=== PATIENT | male | born 1980 | race Hispanic/Latino ===

== ENCOUNTER 2021-01-23 01:39 | Inpatient (IN) | payer OTHER ==
--- OUTSIDE RECORDS SUMMARY | 2021-01-23 01:46 | XMS REPORT | Continuity of Care Document ---
:1980 Author Organization [facility] t Address [address] [place] [address] Care Team Providers Name Role Phone Unavailable Unavailable Unavailable Payers Payer Name Policy Type Policy Number Effective Date Expiration Date S ource Problems This patient has no known problems. Allergies, Adverse Reactions, Alerts Allergy Allergy Status Severity Reaction(s) Onset Inactive Treating Comm ents Source Name Type Date Date Clinician prochlor DA Active PR 2020-0 [facility] per[facility] 3-29 [facility] haloperi DA Active U 2020-0 [facility] dol 01-21 [facility] metoclop DA Active U 2020-0 [facility] ramide 11-30 [facility] clonidin DA Active U 2020-0 [facility] e 05-20 [facility] metoclop DA Active U 2020-0 [facility] ramide 05-20 [facility] clonidin DA Active U 2018-0 [facility] e 01-16 [facility] metoclop DA Active U 2018-0 [facility] ramide 01-16 [facility] clonidin DA Active U 2018-0 [facility] e 11-25 [facility] metoclop DA Active U 2018-0 [facility] ramide 11-25 [facility] Medications This patient has no known medications. Procedures This patient has no known procedures. Results Test Description Test Time Test Comments Results Result [facility] rico Comments - CT ABD PELVIS 2020-08-13 W/CONT 19:35:00 [facility] : 1980 Sex: M Name: RADHA CARPENTER [place] [facility] : 1980 Age/S: 39 / M [address] Unit #: [id number] Loc: [place] [address] Phys: Tony Noriega MD Acct: [id number] Dis Date: Status: PRE ER PHONE #: Exam Date: 08/13/20201923 FAX #: Reason: ABD PAIN EXAMS: CPT CODE: [id number] CT ABD PELVIS W/CONT 42602 CT SCAN OF THE ABDOMEN AND PELVIS WITH CONTRAST Dictation Location: N13 CLINICAL HISTORY: Abdominal pain TECHNIQUE: Helical CT of the abdomen and pelvis was performed after the administration of 100 cc of Isovue 300 without complication. Coronal and sagittal reconstructions were obtained. This exam was performed according to our departmental dose optimization program, which includes automated exposure control, adjustment of the mA and/ or KV according to patient size and/or use of iterative reconstruction technique. DLP 602 mGy*cm Comparison study June 14, 2020 FINDINGS: The visualized lung bases are clear. No evidence of pleural effusion. Liver is normal in size without intrahepatic biliary dilatation or focal mass. The gallbladder is surgically absent. The pancreas, spleen, and adrenal glands are normal. There is no evidence of hydronephrosis, solid mass, pyelonephritis or obstructing kidney stone. Visualized ureters are unremarkable. There is no evidence of pancreatic mass, atrophy, calcification. There is no abdominal free fluid or adenopathy. There is no bowel wall thickening or dilatation. There is no evidence of appendicitis, diverticulitis, colitis or bowel obstruction. A gastric stimulator again noted in place. Normal appendix is seen on coronal image 70. In the pelvis, there is no free fluid or adenopathy present. The bladder is unremarkable without wall thickening, distention, calculi or mass. There is mild prostate enlargement. There is mild calcific atherosclerosis. No AAA. Mild degenerative changes are seen in the spine. IMPRESSION: No acute abnormality is demonstrated. at 1935 Reported and signed by: BLAS JARA M.D. PAGE 1 Signed Report (CONTINUED) Name: RADHA CARPENTER FSED : 1980 Age/S: 39 / M [address] Unit #: [id number] Loc: [place] [address] Phys: Tony Noriega MD Acct: [id number] Dis Date: Status: PRE ER PHONE #: Exam Date: 08/13/20201923 FAX #: Reason: ABD PAIN EXAMS: CPT CODE: [id number] CT ABD PELVIS W/CONT 74400 <Continued> CC: Galindo Chris MD Technologist:Jamil Cox CT (R) CTDI: 10.45 DLP: 602.65 Trnscb Date/Time: 08/13/2020 (1934) [email or web address] Orig Print D/T: S: 08/13/2020 (1937) PAGE 2 Signed Report UA RFLX MICROSCOPIC CULTURE 2020-08-13 19:33:00 Test Item Value Reference Range Interpretation Comme nts UA COLOR (test code = COLU) YELLOW YELLOW UA APPEARANCE (test code = APPU) CLEAR CLEAR UA GLUCOSE DIPSTICK (test code = DGLUU) >=1000 mg/dl NORMAL UA BILIRUBIN DIPSTICK (test code = BILU) NEGATIVE mg/dl NEGATIVE UA KETONE DIPSTICK (test code = KETU) TRACE mg/dl NEGATIVE UA SPECIFIC GRAVITY (test code = SGU) 1.020 1.001-1.035 N UA BLOOD DIPSTICK (test code = JACE) SMALL /UL NEGATIVE UA PH DIPSTICK (test code = LINDA) 5.5 4.6-8.0 UA PROTEIN DIPSTICK (test code = PROU) 30 mg/dl NEGATIVE A UA UROBILINIOGEN DIPSTICK (test code = URO) 0.2 mg/dl NORMAL UA NITRITE DIPSTICK (test code = JOHN) NEGATIVE NEGATIVE UA LEUKOCYTE ESTERASE DIPSTICK (test code = LEUU) TRACE /UL NEGA TIVE UA COMMENT (test code = COMU) CLN CATCH UA WBC (test code = WBCUR) 3-5 #/hpf 0-5 UA RBC (test code = RBCU) 3-5 #/hpf 0-5 UA EPITHELIAL CELLS (test code = EPIU) FEW /hpf NEG,FEW UA BACTERIA (test code = BACU) FEW /hpf NEGATIVE A Indication for culture: Suprapubic PainURINE SOURCE: CLEAN CATCH URINEBASIC METABOLIC [id number] 19:30:00 Test Item Value Reference Range Interpretation Comments SODIUM (test code = 142 mmol/L 136-145 N NA) POTASSIUM (test code 3.7 mmol/L 3.5-5.1 N = K) CHLORIDE (test code = 104 mmol/L 98-107 N CL) CARBON DIOXIDE (test 28 mmol/L 21-32 N code = CO2) GLUCOSE (test code = 92 mg/dL 70-100 N GLU) BLOOD UREA NITROGEN 21 mg/dL 7-18 H (test code = BUN) GLOMERULAR FILTRATION > 60.00 See_Comment Report ing units: RATE (test code = mL/min/1.7 3m\\S\\2 GFR) (Modified MDRD formula)REFEREN CE RANGE: > or = 6 0 ml/min/1.73M2IF PATIENT IS -EVA N, MULTIPLY REPORT ED RESULT BY1.21. [Automated mess age] The system [employer] generated this result transmitted ref erence range: >=60. Th e reference range was not used to int erpret this result as normal/abnormal . CREATININE (test code 0.91 mg/dl 0.70-1.30 N = CREAT) CALCIUM (test code = 9.6 mg/dL 8.5-10.1 N CA) LIVER [id number] 19:30:00 Test Item Value Reference Range Interpretation Comments TOTAL PROTEIN (test code = PROT) 8.5 g/dl 6.4-8.2 H ALBUMIN (test code = ALB) 4.2 g/dl 3.4-5.0 N BILIRUBIN TOTAL (test code = BILT) 0.4 mg/dL 0.2-1.0 N BILIRUBIN DIRECT (test code = 0.11 mg/dl 0.0-0.2 N BILD) SGOT/AST (test code = AST) 18 U/L 15-37 N SGPT/ALT (test code = ALT) 45 U/L 12-78 N ALKALINE PHOSPHATASE TOTAL (test 78 U/L 45-117 N code = ALKP) [id number] 19:30:00 Test Item Value Reference Range Interpretation Comments LIPASE (test code = LIP) 59 U/L 73-393 L [id number] 19:30:00 Test Item Value Reference Range Interpretation Comments TROPONIN-I (test 4 pg/ml See_Comment N HIG H SENSITIVITY code = TROPI) TROPONIN MEASUREMENT/RAN GES -------Assay : Units : Keyonna l : Risk Stratification : High : : (Dete ctable : Limit(Suggestiv e of : AboveTNIH : : Limit) : ilda al testing) : 99th : : : : % ile ------FEMALES: pg/ml : <= 3.0 : 3 .1 - 54 : >54 ------MALES : pg/ml : <= 3.0 : 3 .1 - 78 : >78 ------- [Automa ghazala message] The system [employer] generated this result tra nsmitted reference range : <=3.0. The reference range was not used to interpret th is result as normal/abnormal . DRUGS OF ABUSE [id number] 19:08:00 Test Item Value Reference Range Interpretation Comments UR COCAINE (test code NEGATIVE ng/ml NEGATIVE = COCAU) UR CANNABINOIDS (test NEGATIVE ng/ml NEGATIVE code = CANU) UR AMPHETAMINE (test NEGATIVE ng/dl NEGATIVE code = AMPHU) UR BARBITURATE (test NEGATIVE ng/ml NEGATIVE code = BARBU) UR BENZODIAZEPINE NEGATIVE ng/ml NEGATIVE (test code = BENZU) UR OPIATES QUAL (test NEGATIVE ng/ml NEGATIVE code = OPIAQLU) UR PHENCYCLIDINE NEGATIVE ng/ml NEGATIVE THE URINE SPECIMEN (PCP) (test code = [facility] D [facility]) LISTED CUTOFFS DRUG CLASS INITIAL TEST LEVEL AMPHETAMI TED 1000 NG/MLBARBITURAT ES 200 NG/MLBENZODIAZE PIN ES 200 NG/MLCOCAINE METABOLITE 300 NG/MLMARIJUANA METABOLITE 5 0 NG/MLOPIATES 300 NG/MLPHENCYCLID INE 25 NG /ML UA RFLX MICROSCOPIC [id number] 19:05:00 Test Item Value Reference Range Interpretation Comments UA COLOR (test code = COLU) YELLOW YELLOW UA APPEARANCE (test code = CLEAR CLEAR APPU) UA GLUCOSE DIPSTICK (test code >=1000 mg/dl NORMAL = DGLUU) UA BILIRUBIN DIPSTICK (test NEGATIVE mg/dl NEGATIVE code = BILU) UA KETONE DIPSTICK (test code TRACE mg/dl NEGATIVE = KETU) UA SPECIFIC GRAVITY (test code 1.020 1.001-1.035 N = SGU) UA BLOOD DIPSTICK (test code = SMALL /UL NEGATIVE JACE) UA PH DIPSTICK (test code = 5.5 4.6-8.0 LINDA) UA PROTEIN DIPSTICK (test code 30 mg/dl NEGATIVE A = PROU) UA UROBILINIOGEN DIPSTICK 0.2 mg/dl NORMAL (test code = URO) UA NITRITE DIPSTICK (test code NEGATIVE NEGATIVE = JOHN) UA LEUKOCYTE ESTERASE DIPSTICK TRACE /UL NEGATIVE (test code = LEUU) UA COMMENT (test code = COMU) CLN CATCH UA WBC (test code = WBCUR) #/hpf 0-5 Indication for culture: Suprapubic PainURINE SOURCE: CLEAN CATCH URINEBASIC METABOLIC [id number] 18:20:00 Test Item Value Reference Range Interpretation Comments SODIUM (test code = 142 mmol/L 136-145 N NA) POTASSIUM (test code 3.7 mmol/L 3.5-5.1 N = K) CHLORIDE (test code = 104 mmol/L 98-107 N CL) CARBON DIOXIDE (test 28 mmol/L 21-32 N code = CO2) GLUCOSE (test code = 92 mg/dL 70-100 N GLU) BLOOD UREA NITROGEN 21 mg/dL 7-18 H (test code = BUN) GLOMERULAR FILTRATION > 60.00 See_Comment Report ing units: RATE (test code = mL/min/1.7 3m\\S\\2 GFR) (Modified MDRD formula)REFEREN CE RANGE: > or = 6 0 ml/min/1.73M2IF PATIENT IS -EVA N, MULTIPLY REPORT ED RESULT BY1.21. [Automated mess age] The system [employer] generated this result transmitted ref erence range: >=60. Th e reference range was not used to int erpret this result as normal/abnormal . CREATININE (test code 0.91 mg/dl 0.70-1.30 N = CREAT) CALCIUM (test code = 9.6 mg/dL 8.5-10.1 N CA) LIVER [id number] 18:20:00 Test Item Value Reference Range Interpretation Comments TOTAL PROTEIN (test code = PROT) 8.5 g/dl 6.4-8.2 H ALBUMIN (test code = ALB) 4.2 g/dl 3.4-5.0 N BILIRUBIN TOTAL (test code = BILT) 0.4 mg/dL 0.2-1.0 N BILIRUBIN DIRECT (test code = 0.11 mg/dl 0.0-0.2 N BILD) SGOT/AST (test code = AST) 18 U/L 15-37 N SGPT/ALT (test code = ALT) 45 U/L 12-78 N ALKALINE PHOSPHATASE TOTAL (test 78 U/L 45-117 N code = ALKP) [id number] 18:20:00 Test Item Value Reference Range Interpretation Comments LIPASE (test code = LIP) 59 U/L 73-393 L CBC W/AUTO [id number] 18:06:00 Test Item Value Reference Range Interpretation Comments WHITE BLOOD CELL (test code = 9.7 X10(3) 4.5-11.0 N WBC) RED BLOOD CELL (test code = 4.65 X10(6) 4.3-5.9 N RBC) HEMOGLOBIN (test code = HGB) 13.8 g/dL 13.5-18.0 N HEMATOCRIT (test code = HCT) 42.3 % 42.0-52.0 N MEAN CELL VOLUME (test code = 91.0 fL 78-100 N MCV) MEAN CELL HGB (test code = MCH) 29.7 pg 26.0-34.0 N MEAN CELL HGB CONCETRATION 32.6 g/dl 30.0-37.0 N (test code = MCHC) RED CELL DISTRIBUTION WIDTH 11.8 % 11.5-14.5 N (test code = RDW) PLATELET COUNT (test code = 335 X10(3) 150-350 N PLT) MEAN PLATELET VOLUME (test code 9.3 fl 8.7-11.4 N = MPV) NEUTROPHIL % (test code = NT%) 61.5 % 36.0-66.0 N IMMATURE GRANULOCYTE % (test 0.2 % 0.0-2.0 N code = IG%) LYMPHOCYTE % (test code = LY%) 30.8 % 16-50 N MONOCYTE % (test code = MO%) 7.1 % 0.0-13.0 N EOSINOPHIL % (test code = EO%) 0.2 % 0.0-4.5 N BASOPHIL % (test code = BA%) 0.2 % 0.0-1.5 N NEUTROPHIL # (test code = NT#) 6.0 X10(3) 1.7-7.7 N IMMATURE GRANULOCYTE # (test 0.02 X10(3)uL 0.00-0.03 N code = IG#) LYMPHOCYTE # (test code = LY#) 3.0 X10(3) 1.0-4.8 N MONOCYTE # (test code = MO#) 0.7 X10(3) 0.0-0.89 N EOSINOPHIL # (test code = EO#) 0.0 X10(3) 0.0-0.6 N BASOPHIL # (test code = BA#) 0.0 X10(3) 0.0-0.2 N RBC MORPHOLOGY REQUIRED (test NO NORMAL code = RBCM) LACTIC [id number] 18:05:00 Test Item Value Reference Range Interpretation Comments LACTIC ACID (test code = LACT) 2.0 mmol/l 0.4-2.0 N [id number] 17:57:00 Test Item Value Reference Range Interpretation Comments GLUBED (test code = GLUBED) 89 mg/dL 70-105 N [id number] 12:05:00 Test Item Value Reference Range Interpretation Comments GLUBED (test code = GLUBED) 314 mg/dL 70-105 H [id number] 12:04:00 Test Item Value Reference Range Interpretation Comments GLUBED (test code = GLUBED) 371 mg/dL 70-105 H LACTIC [id number] 11:41:00 Test Item Value Reference Range Interpretation Comments LACTIC ACID (test code = LACT) 1.5 mmol/l 0.4-2.0 N - CT LOWER EXTRM W/O C [id number] 11:30:00 [facility] : 1980 Sex: M Name: RADHA CARPENTER FSED : 1980Age/S: 39 / M [address] Unit #: [id number] Loc: [place] [address] Phys: Tony Noriega MD Acct: [id number] Dis Date: Status: REG ER PHONE#: Exam Date: 06/14/2020 1017 FAX #: Reason:R FOOT SWELLING EXAMS: CPT CODE: [id number] [place] [address] - CT LOWER EXTRM W/O C RT REASON FOR EXAM: R FOOT SWELLING TECHNIQUE: Volumetric CT data of the right foot was obtained without the administration of intravenous contrast. Images were then viewed in the axial, coronal and sagittal planes. All CT scan to performed using radiation dose reduction technique. Technical factors are evaluated to insure appropriate moderation of exposure. Automated dose management technologies applied to adjust the radiation dose to minimize exposure well achieving a diagnostic quality image. COMPARISON: None available. FINDINGS: 1 cm ulcer plantar aspect of the forefoot undermining the 3rd and 4th metatarsal heads. Extensive soft tissue swelling forefoot with osseous erosion of the 5th digit proximal and distal phalanx centered at the IP joint. No additional sites of osseous erosion identified. Recommend Atherosclerotic plaque. IMPRESSION: 1 cm ulceration plantar aspect of the forefoot undermining the3rd and 4th metatarsal head with findings of cellulitis and osteomyelitis of the 5thdigit surrounding the DIP joint. No radiopaque foreign body. No soft tissue gas. Advanced atherosclerotic plaque. Location: V20 at 1130 Reported and signed by: JIMMIE FERNANDEZ M.D. PAGE 1 Signed Report (CONTINUED) Name: RADHA CARPENTER FSED : 1980 Age/S: 39 / M [address] Unit #: [id number] Loc: [place] [address] Phys: Tony Noriega MD Acct: [id number] Dis Date: Status: REG ER PHONE #: Exam Date: 06/14/2020 1017 FAX #: Reason: R FOOT SWELLING EXAMS: CPT CODE: [id number] CT LOWER EXTRM W/O C RT <Continued> CC: Tony Noriega MD; Galindo Chris MD Technologist:Fede Caballero, (R) CT CTDI: 10.53 DLP: 350.96 Trnscb Date/Time: 06/14/2020 (1130) [email or web address] Orig Print D/T: S: 06/14/2020 (1133) PAGE 2 Signed ReportDRUGS OF ABUSE [id number] 10:53:00 Test Item Value Reference Range Interpretation Comments UR COCAINE (test code NEGATIVE ng/ml NEGATIVE = COCAU) UR CANNABINOIDS (test NEGATIVE ng/ml NEGATIVE code = CANU) UR AMPHETAMINE (test NEGATIVE ng/dl NEGATIVE code = AMPHU) UR BARBITURATE (test POSITIVE ng/ml NEGATIVE A VALUE EXCEEDS code = BARBU) CRITICAL LEVEL . CRITICAL VALUE CALLEDTO AND CRITICAL VALUE READ BACK BY DEIRDRE CORRALES 10 52 06/14/20. Kolton Rodriguez ia POSITIVE URINE DRUG SCREEN MOO T RESULTS ARE UNCONFIRMED.REF ERR ED CONFIRMATORY TESTING AVAILAB LE UPON PHYSICIANREQUES T. UR BENZODIAZEPINE NEGATIVE ng/ml NEGATIVE (test code = BENZU) UR OPIATES QUAL (test POSITIVE ng/ml NEGATIVE A VALU E EXCEEDS code = OPIAQLU) CRITICAL LEV EL. CRITICAL VALUE CALLEDTO AND CRITICAL VALUE READ BACK BY DEIRDRE CORRALES 10 52 06/14/20. Kolton Rodriguez ia POSITIVE URINE DRUG SCREEN MOO T RESULTS ARE UNCONFIRMED.REF ERR ED CONFIRMATORY TESTING AVAILAB LE UPON PHYSICIANREQUES T. UR PHENCYCLIDINE NEGATIVE ng/ml NEGATIVE THE URINE SPECIMEN (PCP) (test code = WAS TESTE D AT THE [facility]) LISTED CUTOFFS DRUG CLASS INITIAL TEST LEVEL AMPHETAMI TED 1000 NG/MLBARBITURAT ES 200 NG/MLBENZODIAZE PIN ES 200 NG/MLCOCAINE METABOLITE 300 NG/MLMARIJUANA METABOLITE 5 0 NG/MLOPIATES 300 NG/MLPHENCYCLID INE 25 NG /ML - CT ABD PELVIS [id number] 09:45:00 [facility] 1980 Sex: M Name: RADHA CARPENTER FSED : 1980Age/S: 39 / M [address] Unit #: [id number] Loc: [place] [address] Phys: Tony Noriega MD Acct: [id number] Dis Date: Status: PRE ER PHONE#: Exam Date: 06/14/202018 FAX #: Reason:ABD PAIN EXAMS: CPT CODE: [id number] CT ABD PELVIS W/CONT 07315 CT abdomen and pelvis with contrast 06/14/2020 CLINICAL INDICATION: Abdominal pain COMPARISON: None available LOCATION: W1 TECHNIQUE: Helical CT axial imaging of the abdomen and pelvis was performed following the administration of intravenous contrast. Coronal and sagittal reformatted images were obtained. One or more of the followi ng dose reduction techniques were used: Automated exposure control, adjustment of the mA and/or kV according to patient size, and/or utilization of iterative reconstruction technique. FINDINGS: Lower thorax: Unremarkable. Hepatobiliary: Probable hepatosteatosis. Gallbladder: Surgically absent. Spleen: Unremarkable. Pancreas: Unremarkable. Kidneys: Unremarkable. Adrenals: Unremarkable. Lymph nodes: Unremarkable. Vessels: Mild arteriosclerosis. Peritoneum/retroperitoneum: Unremarkable. Pelvic organs/bladder: Unremarkable. Bowel: No focal wall thickening or evidence for obstruction. Nondilated appendix. Indwelling gastric stimulator. Bones/soft tissues: Chronic appearing degenerative changes in the skeleton. IMPRESSION: No acute-appearing imaging abnormality. at 0945 Reported and signed by: AUTUMN TRAN M.D. PAGE 1 Signed Report (CONTINUED) Name: RADHA CARPENTER FSED : 1980 Age/S: 39 / M [address] Unit #: [id number] Loc: [place] [address] [id number] Dis Date: Status: PRE ER PHONE #: Exam Date: 06/14/2020 0918 FAX #: Reason: ABD PAIN EXAMS: CPT CODE: [id number] CT ABD PELVIS W/CONT 08144 <Continued> CC: Tony Noriega MD; Galindo Chris MD Technologist:Fede Caballero, RT (R) CT CTDI: 10.33 DLP: 549.38 Trnscb Date/Time: 06/14/2020 (944) [email or web address] Orig Print D/T: S: 06/14/2020 (3686) PAGE 2 Signed Report UA RFLX MICROSCOPIC [id number] 09:14:00 Test Item Value Reference Range Interpretation Comments UA COLOR (test code = COLU) YELLOW YELLOW UA APPEARANCE (test code = CLEAR CLEAR APPU) UA GLUCOSE DIPSTICK (test code >=1000 mg/dl NORMAL = DGLUU) UA BILIRUBIN DIPSTICK (test NEGATIVE mg/dl NEGATIVE code = BILU) UA KETONE DIPSTICK (test code NEGATIVE mg/dl NEGATIVE = KETU) UA SPECIFIC GRAVITY (test code 1.020 1.001-1.035 N = SGU) UA BLOOD DIPSTICK (test code = TRACE /UL NEGATIVE A JACE) UA PH DIPSTICK (test code = 5.5 4.6-8.0 LINDA) UA PROTEIN DIPSTICK (test code NEGATIVE mg/dl NEGATIVE = PROU) UA UROBILINIOGEN DIPSTICK 0.2 mg/dl NORMAL (test code = URO) UA NITRITE DIPSTICK (test code NEGATIVE NEGATIVE = JOHN) UA LEUKOCYTE ESTERASE DIPSTICK NEGATIVE /UL NEGATIVE (test code = LEUU) UA COMMENT (test code = COMU) CLN CATCH UA WBC (test code = WBCUR) 0-2 #/hpf 0-5 UA RBC (test code = RBCU) 0-2 #/hpf 0-5 UA EPITHELIAL CELLS (test code FEW /hpf NEG,FEW = EPIU) UA YEAST (BUDDING) (test code FEW /hpf NEGATIVE A = YEASTUBD) Indication for culture: Dysuria/FrequencyURINE SOURCE: CLEAN CATCH URINEUA RFLX MICROSCOPIC [id number] 09:12:00 Test Item Value Reference Range Interpretation Comments UA COLOR (test code = COLU) YELLOW YELLOW UA APPEARANCE (test code = CLEAR CLEAR APPU) UA GLUCOSE DIPSTICK (test code >=1000 mg/dl NORMAL = DGLUU) UA BILIRUBIN DIPSTICK (test NEGATIVE mg/dl NEGATIVE code = BILU) UA KETONE DIPSTICK (test code NEGATIVE mg/dl NEGATIVE = KETU) UA SPECIFIC GRAVITY (test code 1.020 1.001-1.035 N = SGU) UA BLOOD DIPSTICK (test code = TRACE /UL NEGATIVE A JACE) UA PH DIPSTICK (test code = 5.5 4.6-8.0 LINDA) UA PROTEIN DIPSTICK (test code NEGATIVE mg/dl NEGATIVE = PROU) UA UROBILINIOGEN DIPSTICK 0.2 mg/dl NORMAL (test code = URO) UA NITRITE DIPSTICK (test code NEGATIVE NEGATIVE = JOHN) UA LEUKOCYTE ESTERASE DIPSTICK NEGATIVE /UL NEGATIVE (test code = LEUU) UA COMMENT (test code = COMU) CLN CATCH UA WBC (test code = WBCUR) #/hpf 0-5 Indication for culture: Dysuria/FrequencyURINE SOURCE: CLEAN CATCH URINE BASIC METABOLIC [id number] 08:48:00 Test Item Value Reference Range Interpretation Comments SODIUM (test code = 134 mmol/L 136-145 L NA) POTASSIUM (test code = 4.6 mmol/L 3.5-5.1 N K) CHLORIDE (test code = 100 mmol/L 98-107 N CL) CARBON DIOXIDE (test 27 mmol/L 21-32 N code = CO2) GLUCOSE (test code = 424 mg/dL 70-100 H GLU) BLOOD UREA NITROGEN 28 mg/dL 7-18 H (test code = BUN) GLOMERULAR FILTRATION > 60.00 >=60 Report ing units: RATE (test code = GFR) mL/mi n/1.73m\\S\\2 (Modified MDRD formula)REFEREN CE RANGE: > or = 6 0 ml/min/1.73M2IF PATIENT IS -EVA N, MULTIPLY REPORT ED RESULT BY1.21. CREATININE (test code 1.20 mg/dl 0.70-1.30 N = CREAT) CALCIUM (test code = 10.1 mg/dL 8.5-10.1 N CA) LIVER [id number] 08:48:00 Test Item Value Reference Range Interpretation Comments TOTAL PROTEIN (test code = PROT) 8.8 g/dl 6.4-8.2 H ALBUMIN (test code = ALB) 4.0 g/dl 3.4-5.0 N BILIRUBIN TOTAL (test code = BILT) 0.6 mg/dL 0.2-1.0 N BILIRUBIN DIRECT (test code = 0.13 mg/dl 0.0-0.2 N BILD) SGOT/AST (test code = AST) 17 U/L 15-37 N SGPT/ALT (test code = ALT) 33 U/L 12-78 N ALKALINE PHOSPHATASE TOTAL (test 84 U/L 45-117 N code = ALKP) [id number] 08:48:00 Test Item Value Reference Range Interpretation Comments LIPASE (test code = LIP) 78 U/L 73-393 N [id number] 08:48:00 Test Item Value Reference Range Interpretation Comments TROPONIN-I (test <0.017 ng/ml 0.00-0.045 N GUIDELINES: 0.08 - 0.09 code = TROPI) Indeterminate0 .10 Risk Stratifica tion Limit: Suggest sequential te sting0.60 - 1.50 AMI cut off: Myocardial Inju ry by WHO criteria BASIC METABOLIC [id number] 08:46:00 Test Item Value Reference Range Interpretation Comments SODIUM (test code = 134 mmol/L 136-145 L NA) POTASSIUM (test code = 4.6 mmol/L 3.5-5.1 N K) CHLORIDE (test code = 100 mmol/L 98-107 N CL) CARBON DIOXIDE (test 27 mmol/L 21-32 N code = CO2) GLUCOSE (test code = 424 mg/dL 70-100 H GLU) BLOOD UREA NITROGEN 28 mg/dL 7-18 H (test code = BUN) GLOMERULAR FILTRATION > 60.00 >=60 Report ing units: RATE (test code = GFR) mL/mi n/1.73m\\S\\2 (Modified MDRD formula)REFEREN CE RANGE: > or = 6 0 ml/min/1.73M2IF PATIENT IS -EVA N, MULTIPLY REPORT ED RESULT BY1.21. CREATININE (test code 1.20 mg/dl 0.70-1.30 N = CREAT) CALCIUM (test code = 10.1 mg/dL 8.5-10.1 N CA) LIVER [id number] 08:46:00 Test Item Value Reference Range Interpretation Comments TOTAL PROTEIN (test code = PROT) 8.8 g/dl 6.4-8.2 H ALBUMIN (test code = ALB) 4.0 g/dl 3.4-5.0 N BILIRUBIN TOTAL (test code = BILT) 0.6 mg/dL 0.2-1.0 N BILIRUBIN DIRECT (test code = BILD) mg/dl 0.0-0.2 SGOT/AST (test code = AST) 17 U/L 15-37 N SGPT/ALT (test code = ALT) 33 U/L 12-78 N ALKALINE PHOSPHATASE TOTAL (test 84 U/L 45-117 N code = ALKP) [id number] 08:46:00 Test Item Value Reference Range Interpretation Comments LIPASE (test code = LIP) U/L 73-393 [id number] 08:46:00 Test Item Value Reference Range Interpretation Comments TROPONIN-I (test code = TROPI) ng/ml 0.00-0.045 PROTHROMBIN [id number] 08:45:00 Test Item Value Reference Interpretation Comments Range PROTHROMBIN TIME 9.6 SECONDS 8.7-11.9 N THERAPEUTIC LEVEL: 1.5 TO PATIENT (test code 1.9 TIMES NORMAL RANGE = PTP) INTERNATIONAL 0.9 Recommended Th erapeutic NORMAL RATIO (test PT Ratios For Oral code = INR) AnticoagulantTh erapy. CONDITION INT'L N ORMALIZED PT RATIO------- --- Prophylaxis of venous thrombosis 2.0 - 3.0in high [facility] medical or surgicalpati ents, treatment of venousthrombosi s, prevention of e mbolism. Prevention of r ecurrent embolism, 2.5 - 3.5or treatment of patients with mechanicalprost hetic heart valves. THROMBOPLASTIN TIME [id number] 08:45:00 Test Item Value Reference Range Interpretation Comments THROMBOPLASTIN TIME PARTIAL 25.4 seconds 22.8-34.4 N (test code = PTT) CBC W/AUTO [id number] 08:30:00 Test Item Value Reference Range Interpretation Comments WHITE BLOOD CELL (test code = 9.0 X10(3) 4.5-11.0 N WBC) RED BLOOD CELL (test code = 4.47 X10(6) 4.3-5.9 N RBC) HEMOGLOBIN (test code = HGB) 13.3 g/dL 13.5-18.0 L HEMATOCRIT (test code = HCT) 41.1 % 42.0-52.0 L MEAN CELL VOLUME (test code = 91.9 fL 78-100 N MCV) MEAN CELL HGB (test code = MCH) 29.8 pg 26.0-34.0 N MEAN CELL HGB CONCETRATION 32.4 g/dl 30.0-37.0 N (test code = MCHC) RED CELL DISTRIBUTION WIDTH 11.9 % 11.5-14.5 N (test code = RDW) PLATELET COUNT (test code = 437 X10(3) 150-350 H PLT) MEAN PLATELET VOLUME (test code 10.1 fl 8.7-11.4 N = MPV) NEUTROPHIL % (test code = NT%) 68.5 % 36.0-66.0 H IMMATURE GRANULOCYTE % (test 0.3 % 0.0-2.0 N code = IG%) LYMPHOCYTE % (test code = LY%) 24.3 % 16-50 N MONOCYTE % (test code = MO%) 6.6 % 0.0-13.0 N EOSINOPHIL % (test code = EO%) 0.1 % 0.0-4.5 N BASOPHIL % (test code = BA%) 0.2 % 0.0-1.5 N NEUTROPHIL # (test code = NT#) 6.2 X10(3) 1.7-7.7 N IMMATURE GRANULOCYTE # (test 0.03 X10(3)uL 0.00-0.03 N code = IG#) LYMPHOCYTE # (test code = LY#) 2.2 X10(3) 1.0-4.8 N MONOCYTE # (test code = MO#) 0.6 X10(3) 0.0-0.89 N EOSINOPHIL # (test code = EO#) 0.0 X10(3) 0.0-0.6 N BASOPHIL # (test code = BA#) 0.0 X10(3) 0.0-0.2 N RBC MORPHOLOGY REQUIRED (test NO NORMAL code = RBCM) LACTIC [id number] 08:29:00 Test Item Value Reference Range Interpretation Comments LACTIC ACID (test 2.5 mmol/l 0.4-2.0 H RESULTS C ALLED TO code = LACT) TONY Slade MD AT 0829 06/14/20. Berny Landaverde [id number] 07:55:00 Test Item Value Reference Range Interpretation Comments GLUBED (test code = GLUBED) 367 mg/dL 70-105 H URINALYSIS W REFLEX [id number] 11:06:00 Test Item Value Reference Range Interpretation Comments UA COLOR (test code = COLU) YELLOW YELLOW UA APPEARANCE (test code = CLEAR CLEAR APPU) UA GLUCOSE DIPSTICK (test code >1000 mg/dl NORMAL = DGLUU) UA BILIRUBIN DIPSTICK (test NEGATIVE mg/dl NEGATIVE code = BILU) UA KETONE DIPSTICK (test code NEGATIVE mg/dl NEGATIVE = KETU) UA SPECIFIC GRAVITY (test code 1.023 1.001-1.035 N = SGU) UA BLOOD DIPSTICK (test code = TRACE /UL NEGATIVE JACE) UA PH DIPSTICK (test code = 5.5 4.6-8.0 LINDA) UA PROTEIN DIPSTICK (test code 20 mg/dl NEGATIVE = PROU) UA UROBILINIOGEN DIPSTICK NORMAL mg/dl NORMAL (test code = URO) UA NITRITE DIPSTICK (test code NEGATIVE NEGATIVE = JOHN) UA LEUKOCYTE ESTERASE DIPSTICK NEGATIVE /UL NEGATIVE (test code = LEUU) UA COMMENT (test code = COMU) CLN CATCH UA WBC (test code = WBCU) 3-5 #/hpf 0-5 UA RBC (test code = RBCU) 0-2 #/hpf 0-5 UA EPITHELIAL CELLS (test code FEW /hpf NEG,FEW = EPIU) UA CALCIUM OXALATE CRYSTALS FEW /hpf NEG,FEW (test code = CAOXU) UA HYALINE CAST (test code = >15 #/lpf 0-2 A HYALU) UA MUCUS (test code = MUCU) 1+ /hpf NEG,FEW A UA AMORPHOUS SEDIMENT (test FEW /hpf NEG,FEW code = AMORU) UA SPERM (test code = SPERMU) FEW /hpf NEGATIVE A BASIC METABOLIC [id number] 11:02:00 Test Item Value Reference Range Interpretation Comments SODIUM (test code = 137 mmol/L 136-145 N NA) POTASSIUM (test code = 4.5 mmol/L 3.5-5.1 N K) CHLORIDE (test code = 103 mmol/L 98-107 N CL) CARBON DIOXIDE (test 27 mmol/L 21-32 N code = CO2) GLUCOSE (test code = 228 mg/dL 70-100 H GLU) BLOOD UREA NITROGEN 35 mg/dL 7-18 H (test code = BUN) GLOMERULAR FILTRATION > 60.00 >=60 Report ing units: RATE (test code = GFR) mL/mi n/1.73m\\S\\2 (Modified MDRD formula)REFEREN CE RANGE: > or = 6 0 ml/min/1.73M2IF PATIENT IS -EVA N, MULTIPLY REPORT ED RESULT BY1.21. CREATININE (test code 1.30 mg/dL 0.67-1.17 H = CREAT) CALCIUM (test code = 10.7 mg/dL 8.5-10.1 H CA) LIVER [id number] 11:02:00 Test Item Value Reference Range Interpretation Comments TOTAL PROTEIN (test code = PROT) 8.7 g/dl 6.4-8.2 H ALBUMIN (test code = ALB) 4.2 g/dl 3.4-5.0 N BILIRUBIN TOTAL (test code = BILT) 0.3 mg/dl 0.2-1.0 N BILIRUBIN DIRECT (test code = 0.11 mg/dl 0.0-0.4 N BILD) SGOT/AST (test code = AST) 31 U/L 15-37 N SGPT/ALT (test code = ALT) 43 U/L 12-78 N ALKALINE PHOSPHATASE TOTAL (test 82 U/L 50-136 N code = ALKP) [id number] 11:02:00 Test Item Value Reference Range Interpretation Comments LIPASE (test code = LIP) 56 U/L 73-393 L [id number] 11:02:00 Test Item Value Reference Range Interpretation Comments TROPONIN-I (test <0.015 ng/ml 0.00-0.045 N GUIDELINES: 0.08 - 0.09 code = TROPI) Indeterminate0 .10 Risk Stratifica tion Limit: Suggest sequential te sting0.60 - 1.50 AMI cut off: Myocardial Inju ry by WHO criteria BASIC METABOLIC [id number] 11:01:00 Test Item Value Reference Range Interpretation Comments SODIUM (test code = 137 mmol/L 136-145 N NA) POTASSIUM (test code = 4.5 mmol/L 3.5-5.1 N K) CHLORIDE (test code = 103 mmol/L 98-107 N CL) CARBON DIOXIDE (test 27 mmol/L 21-32 N code = CO2) GLUCOSE (test code = 228 mg/dL 70-100 H GLU) BLOOD UREA NITROGEN 35 mg/dL 7-18 H (test code = BUN) GLOMERULAR FILTRATION > 60.00 >=60 Report ing units: RATE (test code = GFR) mL/mi n/1.73m\\S\\2 (Modified MDRD formula)REFEREN CE RANGE: > or = 6 0 ml/min/1.73M2IF PATIENT IS -EVA N, MULTIPLY REPORT ED RESULT BY1.21. CREATININE (test code 1.30 mg/dL 0.67-1.17 H = CREAT) CALCIUM (test code = 10.7 mg/dL 8.5-10.1 H CA) LIVER [id number] 11:01:00 Test Item Value Reference Range Interpretation Comments TOTAL PROTEIN (test code = PROT) 8.7 g/dl 6.4-8.2 H ALBUMIN (test code = ALB) 4.2 g/dl 3.4-5.0 N BILIRUBIN TOTAL (test code = BILT) 0.3 mg/dl 0.2-1.0 N BILIRUBIN DIRECT (test code = 0.11 mg/dl 0.0-0.4 N BILD) SGOT/AST (test code = AST) 31 U/L 15-37 N SGPT/ALT (test code = ALT) 43 U/L 12-78 N ALKALINE PHOSPHATASE TOTAL (test U/L 50-136 code = ALKP) [id number] 11:01:00 Test Item Value Reference Range Interpretation Comments LIPASE (test code = LIP) 56 U/L 73-393 L [id number] 11:01:00 Test Item Value Reference Range Interpretation Comments TROPONIN-I (test code = TROPI) ng/ml 0.00-0.045 BASIC METABOLIC [id number] 11:00:00 Test Item Value Reference Range Interpretation Comments SODIUM (test code = 137 mmol/L 136-145 N NA) POTASSIUM (test code = 4.5 mmol/L 3.5-5.1 N K) CHLORIDE (test code = 103 mmol/L 98-107 N CL) CARBON DIOXIDE (test 27 mmol/L 21-32 N code = CO2) GLUCOSE (test code = 228 mg/dL 70-100 H GLU) BLOOD UREA NITROGEN 35 mg/dL 7-18 H (test code = BUN) GLOMERULAR FILTRATION > 60.00 >=60 Report ing units: RATE (test code = GFR) mL/mi n/1.73m\\S\\2 (Modified MDRD formula)REFEREN CE RANGE: > or = 6 0 ml/min/1.73M2IF PATIENT IS -EVA N, MULTIPLY REPORT ED RESULT BY1.21. CREATININE (test code 1.30 mg/dL 0.67-1.17 H = CREAT) CALCIUM (test code = 10.7 mg/dL 8.5-10.1 H CA) LIVER [id number] 11:00:00 Test Item Value Reference Range Interpretation Comments TOTAL PROTEIN (test code = PROT) g/dl 6.4-8.2 ALBUMIN (test code = ALB) 4.2 g/dl 3.4-5.0 N BILIRUBIN TOTAL (test code = BILT) mg/dl 0.2-1.0 BILIRUBIN DIRECT (test code = 0.11 mg/dl 0.0-0.4 N BILD) SGOT/AST (test code = AST) 31 U/L 15-37 N SGPT/ALT (test code = ALT) 43 U/L 12-78 N ALKALINE PHOSPHATASE TOTAL (test U/L 50-136 code = ALKP) [id number] 11:00:00 Test Item Value Reference Range Interpretation Comments LIPASE (test code = LIP) 56 U/L 73-393 L [id number] 11:00:00 Test Item Value Reference Range Interpretation Comments TROPONIN-I (test code = TROPI) ng/ml 0.00-0.045 BASIC METABOLIC [id number] 10:59:00 Test Item Value Reference Range Interpretation Comments SODIUM (test code = 137 mmol/L 136-145 N NA) POTASSIUM (test code = 4.5 mmol/L 3.5-5.1 N K) CHLORIDE (test code = 103 mmol/L 98-107 N CL) CARBON DIOXIDE (test mmol/L 21-32 code = CO2) GLUCOSE (test code = 228 mg/dL 70-100 H GLU) BLOOD UREA NITROGEN 35 mg/dL 7-18 H (test code = BUN) GLOMERULAR FILTRATION > 60.00 >=60 Report ing units: RATE (test code = GFR) mL/mi n/1.73m\\S\\2 (Modified MDRD formula)REFEREN CE RANGE: > or = 6 0 ml/min/1.73M2IF PATIENT IS -EVA N, MULTIPLY REPORT ED RESULT BY1.21. CREATININE (test code 1.30 mg/dL 0.67-1.17 H = CREAT) CALCIUM (test code = 10.7 mg/dL 8.5-10.1 H CA) LIVER [id number] 10:59:00 Test Item Value Reference Range Interpretation Comments TOTAL PROTEIN (test code = PROT) g/dl 6.4-8.2 ALBUMIN (test code = ALB) 4.2 g/dl 3.4-5.0 N BILIRUBIN TOTAL (test code = BILT) mg/dl 0.2-1.0 BILIRUBIN DIRECT (test code = 0.11 mg/dl 0.0-0.4 N BILD) SGOT/AST (test code = AST) U/L 15-37 SGPT/ALT (test code = ALT) U/L 12-78 ALKALINE PHOSPHATASE TOTAL (test U/L 50-136 code = ALKP) [id number] 10:59:00 Test Item Value Reference Range Interpretation Comments LIPASE (test code = LIP) 56 U/L 73-393 L [id number] 10:59:00 Test Item Value Reference Range Interpretation Comments TROPONIN-I (test code = TROPI) ng/ml 0.00-0.045 BASIC METABOLIC [id number] 10:58:00 Test Item Value Reference Range Interpretation Comments SODIUM (test code = NA) 137 mmol/L 136-145 N POTASSIUM (test code = K) 4.5 mmol/L 3.5-5.1 N CHLORIDE (test code = CL) 103 mmol/L 98-107 N CARBON DIOXIDE (test code = CO2) mmol/L 21-32 GLUCOSE (test code = GLU) 228 mg/dL 70-100 H BLOOD UREA NITROGEN (test code = 35 mg/dL 7-18 H BUN) GLOMERULAR FILTRATION RATE (test >=60 code = GFR) CREATININE (test code = CREAT) mg/dL 0.67-1.17 CALCIUM (test code = CA) 10.7 mg/dL 8.5-10.1 H LIVER [id number] 10:58:00 Test Item Value Reference Range Interpretation Comments TOTAL PROTEIN (test code = PROT) g/dl 6.4-8.2 ALBUMIN (test code = ALB) 4.2 g/dl 3.4-5.0 N BILIRUBIN TOTAL (test code = BILT) mg/dl 0.2-1.0 BILIRUBIN DIRECT (test code = BILD) mg/dl 0.0-0.4 SGOT/AST (test code = AST) U/L 15-37 SGPT/ALT (test code = ALT) U/L 12-78 ALKALINE PHOSPHATASE TOTAL (test U/L 50-136 code = ALKP) [id number] 10:58:00 Test Item Value Reference Range Interpretation Comments LIPASE (test code = LIP) 56 U/L 73-393 L [id number] 10:58:00 Test Item Value Reference Range Interpretation Comments TROPONIN-I (test code = TROPI) ng/ml 0.00-0.045 BASIC METABOLIC [id number] 10:57:00 Test Item Value Reference Range Interpretation Comments SODIUM (test code = NA) 137 mmol/L 136-145 N POTASSIUM (test code = K) 4.5 mmol/L 3.5-5.1 N CHLORIDE (test code = CL) 103 mmol/L 98-107 N CARBON DIOXIDE (test code = CO2) mmol/L 21-32 GLUCOSE (test code = GLU) mg/dL 70-100 BLOOD UREA NITROGEN (test code = mg/dL 7-18 BUN) GLOMERULAR FILTRATION RATE (test >=60 code = GFR) CREATININE (test code = CREAT) mg/dL 0.67-1.17 CALCIUM (test code = CA) 10.7 mg/dL 8.5-10.1 H LIVER [id number] 10:57:00 Test Item Value Reference Range Interpretation Comments TOTAL PROTEIN (test code = PROT) g/dl 6.4-8.2 ALBUMIN (test code = ALB) 4.2 g/dl 3.4-5.0 N BILIRUBIN TOTAL (test code = BILT) mg/dl 0.2-1.0 BILIRUBIN DIRECT (test code = BILD) mg/dl 0.0-0.4 SGOT/AST (test code = AST) U/L 15-37 SGPT/ALT (test code = ALT) U/L 12-78 ALKALINE PHOSPHATASE TOTAL (test U/L 50-136 code = ALKP) [id number] 10:57:00 Test Item Value Reference Range Interpretation Comments LIPASE (test code = LIP) 56 U/L 73-393 L [id number] 10:57:00 Test Item Value Reference Range Interpretation Comments TROPONIN-I (test code = TROPI) ng/ml 0.00-0.045 BASIC METABOLIC [id number] 10:53:00 Test Item Value Reference Range Interpretation Comments SODIUM (test code = NA) 137 mmol/L 136-145 N POTASSIUM (test code = K) 4.5 mmol/L 3.5-5.1 N CHLORIDE (test code = CL) 103 mmol/L 98-107 N CARBON DIOXIDE (test code = CO2) mmol/L 21-32 GLUCOSE (test code = GLU) mg/dL 70-100 BLOOD UREA NITROGEN (test code = mg/dL 7-18 BUN) GLOMERULAR FILTRATION RATE (test >=60 code = GFR) CREATININE (test code = CREAT) mg/dL 0.67-1.17 CALCIUM (test code = CA) mg/dL 8.5-10.1 LIVER [id number] 10:53:00 Test Item Value Reference Range Interpretation Comments TOTAL PROTEIN (test code = PROT) g/dl 6.4-8.2 ALBUMIN (test code = ALB) g/dl 3.4-5.0 BILIRUBIN TOTAL (test code = BILT) mg/dl 0.2-1.0 BILIRUBIN DIRECT (test code = BILD) mg/dl 0.0-0.4 SGOT/AST (test code = AST) U/L 15-37 SGPT/ALT (test code = ALT) U/L 12-78 ALKALINE PHOSPHATASE TOTAL (test code U/L 50-136 = ALKP) [id number] 10:53:00 Test Item Value Reference Range Interpretation Comments LIPASE (test code = LIP) U/L 73-393 [id number] 10:53:00 Test Item Value Reference Range Interpretation Comments TROPONIN-I (test code = TROPI) ng/ml 0.00-0.045 CBC W/AUTO [id number] 10:43:00 Test Item Value Reference Range Interpretation Comments WHITE BLOOD CELL (test code = 9.5 X10(3) 4.5-11.0 N WBC) RED BLOOD CELL (test code = 4.88 X10(6) 4.3-5.9 N RBC) HEMOGLOBIN (test code = HGB) 14.4 g/dL 13.5-18.0 N HEMATOCRIT (test code = HCT) 42.5 % 42.0-52.0 N MEAN CELL VOLUME (test code = 87.1 fl 78-100 N MCV) MEAN CELL HGB (test code = MCH) 29.5 pg 26.0-34.0 N MEAN CELL HGB CONCETRATION 33.9 g/dl 30.0-37.0 N (test code = MCHC) RED CELL DISTRIBUTION WIDTH 12.8 % 11.5-14.5 N (test code = RDW) PLATELET COUNT (test code = 325 X10(3) 150-350 N PLT) MEAN PLATELET VOLUME (test code 10.1 fl 8.7-11.4 N = MPV) NEUTROPHIL % (test code = NT%) 64.0 % 36.0-66.0 N IMMATURE GRANULOCYTE % (test 0.3 % 0.0-2.0 N code = IG%) LYMPHOCYTE % (test code = LY%) 27.5 % 16.0-50.0 N MONOCYTE % (test code = MO%) 7.3 % 0.0-13.0 N EOSINOPHIL % (test code = EO%) 0.6 % 0.0-4.5 N BASOPHIL % (test code = BA%) 0.3 % 0.0-1.5 N NUCLEATED RBC % (test code = 0.0 % 0-0.2 N NRBC%) NEUTROPHIL # (test code = NT#) 6.09 X10(3) 1.70-7.70 N IMMATURE GRANULOCYTE # (test 0.03 X10(3)uL 0.00-0.03 N code = IG#) LYMPHOCYTE # (test code = LY#) 2.62 X10(3) 0.70-4.00 N MONOCYTE # (test code = MO#) 0.70 X10(3) 0.00-0.89 N EOSINOPHIL # (test code = EO#) 0.06 X10(3) 0.00-0.60 N BASOPHIL # (test code = BA#) 0.03 X10(3) 0.00-0.20 N NUCLEATED RBC # (test code = 0.00 K/mm3 0.0-0.1 N NRBC#) [id number] 10:39:00 Test Item Value Reference Range Interpretation Comments GLUBED (test code = 228 mg/dL 70-105 H Performe d by certified GLUBED) 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 [facility] BASIC METABOLIC [id number] 02:26:00 Test Item Value Reference Range Interpretation Comments SODIUM (test code = 135 mmol/L 136-145 L NA) POTASSIUM (test code = 3.7 mmol/L 3.5-5.1 N K) CHLORIDE (test code = 99 mmol/L 98-107 N CL) CARBON DIOXIDE (test 28 mmol/L 21-32 N code = CO2) GLUCOSE (test code = 249 mg/dL 70-100 H GLU) BLOOD UREA NITROGEN 18 mg/dL 7-18 N (test code = BUN) GLOMERULAR FILTRATION > 60.00 >=60 Report ing units: RATE (test code = GFR) mL/mi n/1.73m\\S\\2 (Modified MDRD formula)REFEREN CE RANGE: > or = 6 0 ml/min/1.73M2IF PATIENT IS -EVA N, MULTIPLY REPORT ED RESULT BY1.21. CREATININE (test code 1.06 mg/dl 0.70-1.30 N = CREAT) CALCIUM (test code = 10.3 mg/dL 8.5-10.1 H CA) LIVER [id number] 02:26:00 Test Item Value Reference Range Interpretation Comments TOTAL PROTEIN (test code = PROT) 8.2 g/dl 6.4-8.2 N ALBUMIN (test code = ALB) 4.0 g/dl 3.4-5.0 N BILIRUBIN TOTAL (test code = BILT) 0.3 mg/dL 0.2-1.0 N BILIRUBIN DIRECT (test code = 0.07 mg/dl 0.0-0.2 N BILD) SGOT/AST (test code = AST) 23 U/L 15-37 N SGPT/ALT (test code = ALT) 82 U/L 12-78 H ALKALINE PHOSPHATASE TOTAL (test 79 U/L 45-117 N code = ALKP) [id number] 02:26:00 Test Item Value Reference Range Interpretation Comments LIPASE (test code = LIP) 138 U/L 73-393 N PROTHROMBIN [id number] 02:16:00 Test Item Value Reference Interpretation Comments Range PROTHROMBIN TIME 9.2 SECONDS 8.7-11.9 N THERAPEUTIC LEVEL: 1.5 TO PATIENT (test code 1.9 TIMES NORMAL RANGE = PTP) INTERNATIONAL 0.9 Recommended Th erapeutic NORMAL RATIO (test PT Ratios For Oral code = INR) AnticoagulantTh erapy. CONDITION INT'L N ORMALIZED PT RATIO------- --- Prophylaxis of venous thrombosis 2.0 - 3.0in high [facility] medical or surgicalpati ents, treatment of venousthrombosi s, prevention of e mbolism. Prevention of r ecurrent embolism, 2.5 - 3.5or treatment of patients with mechanicalprost hetic heart valves. THROMBOPLASTIN TIME [id number] 02:16:00 Test Item Value Reference Range Interpretation Comments THROMBOPLASTIN TIME PARTIAL 24.8 seconds 22.8-34.4 N (test code = PTT) CBC W/AUTO [id number] 02:03:00 Test Item Value Reference Range Interpretation Comments WHITE BLOOD CELL (test code = 8.7 X10(3) 4.5-11.0 N WBC) RED BLOOD CELL (test code = 4.42 X10(6) 4.3-5.9 N RBC) HEMOGLOBIN (test code = HGB) 13.1 g/dL 13.5-18.0 L HEMATOCRIT (test code = HCT) 39.1 % 42.0-52.0 L MEAN CELL VOLUME (test code = 88.5 fL 78-100 N MCV) MEAN CELL HGB (test code = MCH) 29.6 pg 26.0-34.0 N MEAN CELL HGB CONCETRATION 33.5 g/dl 30.0-37.0 N (test code = MCHC) RED CELL DISTRIBUTION WIDTH 11.7 % 11.5-14.5 N (test code = RDW) PLATELET COUNT (test code = 294 X10(3) 150-350 N PLT) MEAN PLATELET VOLUME (test code 10.1 fl 8.7-11.4 N = MPV) NEUTROPHIL % (test code = NT%) 66.6 % 36.0-66.0 H IMMATURE GRANULOCYTE % (test 0.1 % 0.0-2.0 N code = IG%) LYMPHOCYTE % (test code = LY%) 24.7 % 16-50 N MONOCYTE % (test code = MO%) 8.1 % 0.0-13.0 N EOSINOPHIL % (test code = EO%) 0.3 % 0.0-4.5 N BASOPHIL % (test code = BA%) 0.2 % 0.0-1.5 N NEUTROPHIL # (test code = NT#) 5.8 X10(3) 1.7-7.7 N IMMATURE GRANULOCYTE # (test 0.01 X10(3)uL 0.00-0.03 N code = IG#) LYMPHOCYTE # (test code = LY#) 2.1 X10(3) 1.0-4.8 N MONOCYTE # (test code = MO#) 0.7 X10(3) 0.0-0.89 N EOSINOPHIL # (test code = EO#) 0.0 X10(3) 0.0-0.6 N BASOPHIL # (test code = BA#) 0.0 X10(3) 0.0-0.2 N RBC MORPHOLOGY REQUIRED (test NO NORMAL code = RBCM) LACTIC [id number] 02:02:00 Test Item Value Reference Range Interpretation Comments LACTIC ACID (test code = LACT) 2.0 mmol/l 0.4-2.0 N [id number] 20:16:00 Test Item Value Reference Range Interpretation Comments GLUBED (test code = 189 mg/dL 70-105 H Performe d by certified GLUBED) 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 [facility]2020-07-31 16:43:00 Test Item Value Reference Range Interpretation Comments GLUBED (test code = 197 mg/dL 70-105 H Performe d by certified GLUBED) 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 [facility]2020-07-31 11:20:00 Test Item Value Reference Range Interpretation Comments GLUBED (test code = 289 mg/dL 70-105 H Performe d by certified GLUBED) 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 [facility]2020-07-31 07:36:00 Test Item Value Reference Range Interpretation Comments GLUBED (test code = 154 mg/dL 70-105 H Performe d by certified GLUBED) 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 [facility] [id number] 20:42:00 Test Item Value Reference Range Interpretation Comments GLUBED (test code = 155 mg/dL 70-105 H Performe d by certified GLUBED) 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 [facility] [id number] 15:46:00 Test Item Value Reference Range Interpretation Comments GLUBED (test code = 201 mg/dL 70-105 H Performe d by certified GLUBED) 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 [facility] [id number] 11:32:00 Test Item Value Reference Range Interpretation Comments GLUBED (test code = 252 mg/dL 70-105 H Performe d by certified GLUBED) 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 [facility] [id number] 08:37:00 Test Item Value Reference Range Interpretation Comments GLUBED (test code = 225 mg/dL 70-105 H Performe d by certified GLUBED) 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 [facility] [id number] 04:12:00 Test Item Value Reference Range Interpretation Comments CREATININE (test code = CREAT) 1.00 mg/dL 0.67-1.17 N CBC W/AUTO [id number] 04:03:00 Test Item Value Reference Range Interpretation Comments WHITE BLOOD CELL (test code = 7.3 X10(3) 4.5-11.0 N WBC) RED BLOOD CELL (test code = 4.23 X10(6) 4.3-5.9 L RBC) HEMOGLOBIN (test code = HGB) 12.5 g/dL 13.5-18.0 L HEMATOCRIT (test code = HCT) 39.0 % 42.0-52.0 L MEAN CELL VOLUME (test code = 92.2 fl 78-100 N MCV) MEAN CELL HGB (test code = MCH) 29.6 pg 26.0-34.0 N MEAN CELL HGB CONCETRATION 32.1 g/dl 30.0-37.0 N (test code = MCHC) RED CELL DISTRIBUTION WIDTH 11.9 % 11.5-14.5 N (test code = RDW) PLATELET COUNT (test code = 379 X10(3) 150-350 H PLT) MEAN PLATELET VOLUME (test code 9.8 fl 8.7-11.4 N = MPV) NEUTROPHIL % (test code = NT%) 62.0 % 36.0-66.0 N IMMATURE GRANULOCYTE % (test 0.3 % 0.0-2.0 N code = IG%) LYMPHOCYTE % (test code = LY%) 29.4 % 16.0-50.0 N MONOCYTE % (test code = MO%) 6.2 % 0.0-13.0 N EOSINOPHIL % (test code = EO%) 1.8 % 0.0-4.5 N BASOPHIL % (test code = BA%) 0.3 % 0.0-1.5 N NUCLEATED RBC % (test code = 0.0 % 0-0.2 N NRBC%) NEUTROPHIL # (test code = NT#) 4.54 X10(3) 1.70-7.70 N IMMATURE GRANULOCYTE # (test 0.02 X10(3)uL 0.00-0.03 N code = IG#) LYMPHOCYTE # (test code = LY#) 2.15 X10(3) 0.70-4.00 N MONOCYTE # (test code = MO#) 0.45 X10(3) 0.00-0.89 N EOSINOPHIL # (test code = EO#) 0.13 X10(3) 0.00-0.60 N BASOPHIL # (test code = BA#) 0.02 X10(3) 0.00-0.20 N NUCLEATED RBC # (test code = 0.00 K/mm3 0.0-0.1 N NRBC#) [id number] 19:33:00 Test Item Value Reference Range Interpretation Comments GLUBED (test code = 236 mg/dL 70-105 H Performe d by certified 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) 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 [facility]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-07-29 16:33:00 Test Item Value Reference Range Interpretation Comments GLUBED (test code = 225 mg/dL 70-105 H Performe d by certified GLUBED) 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 [facility]2020-07-29 11:29:00 Test Item Value Reference Range Interpretation Comments GLUBED (test code = 298 mg/dL 70-105 H Performe d by certified GLUBED) 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 [facility]2020-07-29 08:00:00 Test Item Value Reference Range Interpretation Comments GLUBED (test code = 279 mg/dL 70-105 H Performe d by certified GLUBED) 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 [facility]2020-07-28 21:36:00 Test Item Value Reference Range Interpretation Comments GLUBED (test code = 243 mg/dL 70-105 H Performe d by certified GLUBED) 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 [facility]2020-07-28 16:54:00 Test Item Value Reference Range Interpretation Comments GLUBED (test code = 227 mg/dL 70-105 H Performe d by certified GLUBED) 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 [facility]2020-07-28 12:06:00 Test Item Value Reference Range Interpretation Comments GLUBED (test code = 292 mg/dL 70-105 H Performe d by certified GLUBED) 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 [facility]2020-07-28 07:21:00 Test Item Value Reference Range Interpretation Comments GLUBED (test code = 341 mg/dL 70-105 H Performe d by certified GLUBED) 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 [facility]2020-07-27 23:10:00 Test Item Value Reference Range Interpretation Comments GLUBED (test code = 318 mg/dL 70-105 H Performe d by certified GLUBED) 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 [facility]2020-07-27 17:57:00 Test Item Value Reference Range Interpretation Comments GLUBED (test code = 317 mg/dL 70-105 H Performe d by certified GLUBED) 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 [facility]2020-07-27 11:45:00 Test Item Value Reference Range Interpretation Comments GLUBED (test code = 318 mg/dL 70-105 H Performe d by certified GLUBED) 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 [facility]2020-07-27 07:22:00 Test Item Value Reference Range Interpretation Comments GLUBED (test code = 305 mg/dL 70-105 H Performe d by certified GLUBED) 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 [facility]2020-07-26 20:16:00 Test Item Value Reference Range Interpretation Comments GLUBED (test code = 202 mg/dL 70-105 H Performe d by certified GLUBED) 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 [facility]2020-07-26 16:57:00 Test Item Value Reference Range Interpretation Comments GLUBED (test code = 298 mg/dL 70-105 H Performe d by certified GLUBED) 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 [facility]2020-07-26 10:12:00 Test Item Value Reference Range Interpretation Comments GLUBED (test code = 396 mg/dL 70-105 H Performe d by certified GLUBED) 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 [facility]2020-07-25 20:52:00 Test Item Value Reference Range Interpretation Comments GLUBED (test code = 276 mg/dL 70-105 H Performe d by certified GLUBED) 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 [facility]2020-07-25 16:20:00 Test Item Value Reference Range Interpretation Comments GLUBED (test code = 230 mg/dL 70-105 H Performe d by certified GLUBED) 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 [facility]2020-07-25 11:50:00 Test Item Value Reference Range Interpretation Comments GLUBED (test code = 299 mg/dL 70-105 H Performe d by certified GLUBED) 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 [facility]2020-07-25 07:26:00 Test Item Value Reference Range Interpretation Comments GLUBED (test code = 278 mg/dL 70-105 H Performe d by certified GLUBED) 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 [facility]2020-07-24 20:44:00 Test Item Value Reference Range Interpretation Comments GLUBED (test code = 196 mg/dL 70-105 H Performe d by certified GLUBED) 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 [facility]2020-07-24 16:17:00 Test Item Value Reference Range Interpretation Comments GLUBED (test code = 274 mg/dL 70-105 H Performe d by certified GLUBED) 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 [facility]2020-07-24 11:38:00 Test Item Value Reference Range Interpretation Comments GLUBED (test code = 280 mg/dL 70-105 H Performe d by certified GLUBED) 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 [facility]2020-07-24 07:37:00 Test Item Value Reference Range Interpretation Comments GLUBED (test code = 235 mg/dL 70-105 H Performe d by certified GLUBED) 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 [facility]2020-07-23 22:34:00 Test Item Value Reference Range Interpretation Comments GLUBED (test code = 217 mg/dL 70-105 H Performe d by certified GLUBED) 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 [facility]2020-07-23 18:05:00 Test Item Value Reference Range Interpretation Comments GLUBED (test code = 264 mg/dL 70-105 H Performe d by certified GLUBED) 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 [facility] [id number] 11:09:00 Test Item Value Reference Range Interpretation Comments GLUBED (test code = 273 mg/dL 70-105 H Performe d by certified GLUBED) 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 [facility] COMPREHENSIVE METABOLIC [id number] 08:14:00 Test Item Value Reference Range Interpretation Comments SODIUM (test code = NA) 138 mmol/L 136-145 N POTASSIUM (test code = 3.7 mmol/L 3.5-5.1 N K) CHLORIDE (test code = 103 mmol/L 98-107 N CL) CARBON DIOXIDE (test 30 mmol/L 21-32 N code = CO2) GLUCOSE (test code = 271 mg/dL 70-100 H GLU) BLOOD UREA NITROGEN 10 mg/dL 7-18 N (test code = BUN) GLOMERULAR FILTRATION > 60.00 >=60 Report ing units: RATE (test code = GFR) mL/mi n/1.73m\\S\\2 (Modified MDRD formula)REFEREN CE RANGE: > or = 6 0 ml/min/1.73M2IF PATIENT IS -EVA N, MULTIPLY REPORT ED RESULT BY1.21. CREATININE (test code = 0.80 mg/dL 0.67-1.17 N CREAT) TOTAL PROTEIN (test 7.8 g/dl 6.4-8.2 N code = PROT) ALBUMIN (test code = 2.5 g/dl 3.4-5.0 L ALB) CALCIUM (test code = 8.5 mg/dL 8.5-10.1 N CA) BILIRUBIN TOTAL (test 0.3 mg/dl 0.2-1.0 N code = BILT) SGOT/AST (test code = 12 U/L 15-37 L AST) SGPT/ALT (test code = 68 U/L 12-78 N ALT) ALKALINE PHOSPHATASE 138 U/L 50-136 H TOTAL (test code = ALKP) COMPREHENSIVE METABOLIC [id number] 08:13:00 Test Item Value Reference Range Interpretation Comments SODIUM (test code = NA) 138 mmol/L 136-145 N POTASSIUM (test code = 3.7 mmol/L 3.5-5.1 N K) CHLORIDE (test code = 103 mmol/L 98-107 N CL) CARBON DIOXIDE (test 30 mmol/L 21-32 N code = CO2) GLUCOSE (test code = 271 mg/dL 70-100 H GLU) BLOOD UREA NITROGEN 10 mg/dL 7-18 N (test code = BUN) GLOMERULAR FILTRATION > 60.00 >=60 Report ing units: RATE (test code = GFR) mL/mi n/1.73m\\S\\2 (Modified MDRD formula)REFEREN CE RANGE: > or = 6 0 ml/min/1.73M2IF PATIENT IS -EVA N, MULTIPLY REPORT ED RESULT BY1. CREATININE (test code = 0.80 mg/dL 0.67-1.17 N CREAT) TOTAL PROTEIN (test 7.8 g/dl 6.4-8.2 N code = PROT) ALBUMIN (test code = 2.5 g/dl 3.4-5.0 L ALB) CALCIUM (test code = 8.5 mg/dL 8.5-10.1 N CA) BILIRUBIN TOTAL (test 0.3 mg/dl 0.2-1.0 N code = BILT) SGOT/AST (test code = 12 U/L 15-37 L AST) SGPT/ALT (test code = 68 U/L 12-78 N ALT) ALKALINE PHOSPHATASE U/L 50-136 TOTAL (test code = ALKP) COMPREHENSIVE METABOLIC [id number] 08:12:00 Test Item Value Reference Range Interpretation Comments SODIUM (test code = NA) 138 mmol/L 136-145 N POTASSIUM (test code = 3.7 mmol/L 3.5-5.1 N K) CHLORIDE (test code = 103 mmol/L 98-107 N CL) CARBON DIOXIDE (test 30 mmol/L 21-32 N code = CO2) GLUCOSE (test code = 271 mg/dL 70-100 H GLU) BLOOD UREA NITROGEN 10 mg/dL 7-18 N (test code = BUN) GLOMERULAR FILTRATION > 60.00 >=60 Report ing units: RATE (test code = GFR) mL/mi n/1.73m\\S\\2 (Modified MDRD formula)REFEREN CE RANGE: > or = 6 0 ml/min/1.73M2IF PATIENT IS -EVA N, MULTIPLY REPORT ED RESULT BY1. CREATININE (test code = 0.80 mg/dL 0.67-1.17 N CREAT) TOTAL PROTEIN (test 7.8 g/dl 6.4-8.2 N code = PROT) ALBUMIN (test code = 2.5 g/dl 3.4-5.0 L ALB) CALCIUM (test code = 8.5 mg/dL 8.5-10.1 N CA) BILIRUBIN TOTAL (test mg/dl 0.2-1.0 code = BILT) SGOT/AST (test code = 12 U/L 15-37 L AST) SGPT/ALT (test code = 68 U/L 12-78 N ALT) ALKALINE PHOSPHATASE U/L 50-136 TOTAL (test code = ALKP) COMPREHENSIVE METABOLIC [id number] 08:11:00 Test Item Value Reference Range Interpretation Comments SODIUM (test code = NA) 138 mmol/L 136-145 N POTASSIUM (test code = 3.7 mmol/L 3.5-5.1 N K) CHLORIDE (test code = 103 mmol/L 98-107 N CL) CARBON DIOXIDE (test 30 mmol/L 21-32 N code = CO2) GLUCOSE (test code = 271 mg/dL 70-100 H GLU) BLOOD UREA NITROGEN 10 mg/dL 7-18 N (test code = BUN) GLOMERULAR FILTRATION > 60.00 >=60 Report ing units: RATE (test code = GFR) mL/mi n/1.73m\\S\\2 (Modified MDRD formula)REFEREN CE RANGE: > or = 6 0 ml/min/1.73M2IF PATIENT IS -EVA N, MULTIPLY REPORT ED RESULT BY1.21. CREATININE (test code = 0.80 mg/dL 0.67-1.17 N CREAT) TOTAL PROTEIN (test g/dl 6.4-8.2 code = PROT) ALBUMIN (test code = 2.5 g/dl 3.4-5.0 L ALB) CALCIUM (test code = 8.5 mg/dL 8.5-10.1 N CA) BILIRUBIN TOTAL (test mg/dl 0.2-1.0 code = BILT) SGOT/AST (test code = U/L 15-37 AST) SGPT/ALT (test code = 68 U/L 12-78 N ALT) ALKALINE PHOSPHATASE U/L 50-136 TOTAL (test code = ALKP) COMPREHENSIVE METABOLIC [id number] 08:09:00 Test Item Value Reference Range Interpretation Comments SODIUM (test code = NA) 138 mmol/L 136-145 N POTASSIUM (test code = K) 3.7 mmol/L 3.5-5.1 N CHLORIDE (test code = CL) 103 mmol/L 98-107 N CARBON DIOXIDE (test code = CO2) 30 mmol/L 21-32 N GLUCOSE (test code = GLU) 271 mg/dL 70-100 H BLOOD UREA NITROGEN (test code = 10 mg/dL 7-18 N BUN) GLOMERULAR FILTRATION RATE (test >=60 code = GFR) CREATININE (test code = CREAT) mg/dL 0.67-1.17 TOTAL PROTEIN (test code = PROT) g/dl 6.4-8.2 ALBUMIN (test code = ALB) 2.5 g/dl 3.4-5.0 L CALCIUM (test code = CA) 8.5 mg/dL 8.5-10.1 N BILIRUBIN TOTAL (test code = BILT) mg/dl 0.2-1.0 SGOT/AST (test code = AST) U/L 15-37 SGPT/ALT (test code = ALT) U/L 12-78 ALKALINE PHOSPHATASE TOTAL (test U/L 50-136 code = ALKP) COMPREHENSIVE METABOLIC [id number] 08:08:00 Test Item Value Reference Range Interpretation Comments SODIUM (test code = NA) 138 mmol/L 136-145 N POTASSIUM (test code = K) 3.7 mmol/L 3.5-5.1 N CHLORIDE (test code = CL) 103 mmol/L 98-107 N CARBON DIOXIDE (test code = CO2) 30 mmol/L 21-32 N GLUCOSE (test code = GLU) mg/dL 70-100 BLOOD UREA NITROGEN (test code = mg/dL 7-18 BUN) GLOMERULAR FILTRATION RATE (test >=60 code = GFR) CREATININE (test code = CREAT) mg/dL 0.67-1.17 TOTAL PROTEIN (test code = PROT) g/dl 6.4-8.2 ALBUMIN (test code = ALB) 2.5 g/dl 3.4-5.0 L CALCIUM (test code = CA) 8.5 mg/dL 8.5-10.1 N BILIRUBIN TOTAL (test code = BILT) mg/dl 0.2-1.0 SGOT/AST (test code = AST) U/L 15-37 SGPT/ALT (test code = ALT) U/L 12-78 ALKALINE PHOSPHATASE TOTAL (test U/L 50-136 code = ALKP) COMPREHENSIVE METABOLIC [id number] 08:03:00 Test Item Value Reference Range Interpretation Comments SODIUM (test code = NA) 138 mmol/L 136-145 N POTASSIUM (test code = K) 3.7 mmol/L 3.5-5.1 N CHLORIDE (test code = CL) 103 mmol/L 98-107 N CARBON DIOXIDE (test code = CO2) mmol/L 21-32 GLUCOSE (test code = GLU) mg/dL 70-100 BLOOD UREA NITROGEN (test code = mg/dL 7-18 BUN) GLOMERULAR FILTRATION RATE (test >=60 code = GFR) CREATININE (test code = CREAT) mg/dL 0.67-1.17 TOTAL PROTEIN (test code = PROT) g/dl 6.4-8.2 ALBUMIN (test code = ALB) g/dl 3.4-5.0 CALCIUM (test code = CA) mg/dL 8.5-10.1 BILIRUBIN TOTAL (test code = BILT) mg/dl 0.2-1.0 SGOT/AST (test code = AST) U/L 15-37 SGPT/ALT (test code = ALT) U/L 12-78 ALKALINE PHOSPHATASE TOTAL (test U/L 50-136 code = ALKP) CBC W/AUTO [id number] 07:55:00 Test Item Value Reference Range Interpretation Comments WHITE BLOOD CELL (test code = 11.1 X10(3) 4.5-11.0 H WBC) RED BLOOD CELL (test code = 3.82 X10(6) 4.3-5.9 L RBC) HEMOGLOBIN (test code = HGB) 11.5 g/dL 13.5-18.0 L HEMATOCRIT (test code = HCT) 35.9 % 42.0-52.0 L MEAN CELL VOLUME (test code = 94.0 fl 78-100 N MCV) MEAN CELL HGB (test code = MCH) 30.1 pg 26.0-34.0 N MEAN CELL HGB CONCETRATION 32.0 g/dl 30.0-37.0 N (test code = MCHC) RED CELL DISTRIBUTION WIDTH 11.8 % 11.5-14.5 N (test code = RDW) PLATELET COUNT (test code = 494 X10(3) 150-350 H PLT) MEAN PLATELET VOLUME (test code 9.3 fl 8.7-11.4 N = MPV) NEUTROPHIL % (test code = NT%) 72.8 % 36.0-66.0 H IMMATURE GRANULOCYTE % (test 0.6 % 0.0-2.0 N code = IG%) LYMPHOCYTE % (test code = LY%) 19.6 % 16.0-50.0 N MONOCYTE % (test code = MO%) 6.2 % 0.0-13.0 N EOSINOPHIL % (test code = EO%) 0.5 % 0.0-4.5 N BASOPHIL % (test code = BA%) 0.3 % 0.0-1.5 N NUCLEATED RBC % (test code = 0.0 % 0-0.2 N NRBC%) NEUTROPHIL # (test code = NT#) 8.08 X10(3) 1.70-7.70 H IMMATURE GRANULOCYTE # (test 0.07 X10(3)uL 0.00-0.03 H code = IG#) LYMPHOCYTE # (test code = LY#) 2.17 X10(3) 0.70-4.00 N MONOCYTE # (test code = MO#) 0.69 X10(3) 0.00-0.89 N EOSINOPHIL # (test code = EO#) 0.05 X10(3) 0.00-0.60 N BASOPHIL # (test code = BA#) 0.03 X10(3) 0.00-0.20 N NUCLEATED RBC # (test code = 0.00 K/mm3 0.0-0.1 N NRBC#) [id number] 19:39:00 Test Item Value Reference Range Interpretation Comments GLUBED (test code = 239 mg/dL 70-105 H Performe d by certified GLUBED) 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 [facility] CARDIO C REACTIVE PROTEIN [id number] 16:49:00 Test Item Value Reference Range Interpretation Comments CARDIO C REACTIVE 54.80 0.0-3.0 H CCRP MG/L RISK PROTEIN HS (test code ACCORD ING TO AHA/CDC = CCRP) GUIDELINES----- ---- ---------<1.0 LOW CARDIOVASCU LAR RISK1.0 - 3.0 AVE RAGE CARDIOVASCULAR RISK3.1 - 10.0 HIGH CARDIOVASCULAR RISK>10.0 PERSISTE NT ELEVATIONS MAY REPRESENT NON-CARDIOVASCU LAR INFLAMMATION SED [id number] 16:47:00 Test Item Value Reference Range Interpretation Comments SED RATE (test code = SEDW) 134 mm/hr 0-15 H [id number] 16:11:00 Test Item Value Reference Range Interpretation Comments GLUBED (test code = 162 mg/dL 70-105 H Performe d by certified GLUBED) 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 [facility] [id number] 11:20:00 Test Item Value Reference Range Interpretation Comments GLUBED (test code = 276 mg/dL 70-105 H Performe d by certified GLUBED) 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 [facility]2020-07-22 07:12:00 Test Item Value Reference Range Interpretation Comments GLUBED (test code = 238 mg/dL 70-105 H Performe d by certified GLUBED) 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 [facility] [id number] 21:21:00 Test Item Value Reference Range Interpretation Comments GLUBED (test code = 212 mg/dL 70-105 H Performe d by certified GLUBED) 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 [facility] [id number] 16:44:00 Test Item Value Reference Range Interpretation Comments GLUBED (test code = 236 mg/dL 70-105 H Performe d by certified GLUBED) 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 [facility] [id number] 12:01:00 RUN DATE: 12/06/19 [facility] LIVE PAGE 1 RUN TIME: 1201 Specimen Inquiry RUN USER: INTERFACE PATIENT: RADHA [facility] [place] #: [id number] AGE/SX: 39/M ROOM: [facility] RE[facility]01[facility]: Joe Wolf MD : 82 BED: A DIS: STATUS: ADM IN TLOC: SPEC #: [id number] RECD: 12/05/19 STATUS: DINORA REQ #: [id number] JOEL: 12/05/19- [facility] DR: Simone Navarro ENTERED: 12/05/19 SP TYPE: SURGICAL OTHR DR: Rosalina Morales DPM, Jose Luciano M Vafaie, Nathan Payam MD Wong, Antonio MDORDERED: SURG/PATH GROSS GROSS DESCRIPTION: The specimen is received in formalin in a container labeled "RADHA CARPENTER - RIGHT FOOT TISSUE". The specimen consists of several irregular fragments of pinkish-red tissue measuring 10 x 2.5 x 2.3 cm. Some of the tissue appears to be necrotic. All these fragments, in aggregate, measure 3.5 x 2.5 x 2.3 cm. Sections are submitted for permanents in one cassette. COPIES TO: Rosalina Morales DPM [address] [place] [address] Simone Cabrera [address] [place], [place] [address]GIANA Willard [address] [address] MD [address] [place] [address] Galindo Chris MD [address] [place] [address] PROCEDURES: SURG/PATH GROSS (12/05/19-1336) TISSUES: FOOT - RIGHT FOOT TISSUE CONTINUED ON NEXT PAGE RUN DATE: 12/06/19 [facility] LIVE PAGE 2 RUN TIME: 1201 Specimen Inquiry RUN USER: INTERFACE ------- -----SPEC #: [id number] PATIENT: RADHA CARPENTER #[id number] (Continued) Surgery information Surgery date 12/05/19 Surgeon(s): SIMONE BLANK Pre-Op Dx: RIGHT FOOT ULCER Post-Op Dx: SAME Signed SIGNATURE ON FILE Simone Suarez 12/06/19 1201 END OF REPORT [id number] 11:54:00 Test Item Value Reference Range Interpretation Comments GLUBED (test code = 300 mg/dL 70-105 H Performe d by certified GLUBED) 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 [facility] BASIC METABOLIC [id number] 11:28:00 Test Item Value Reference Range Interpretation Comments SODIUM (test code = 136 mmol/L 136-145 N NA) POTASSIUM (test code = 3.8 mmol/L 3.5-5.1 N K) CHLORIDE (test code = 101 mmol/L 98-107 N CL) CARBON DIOXIDE (test 27 mmol/L 21-32 N code = CO2) GLUCOSE (test code = 337 mg/dL 70-100 H GLU) BLOOD UREA NITROGEN 12 mg/dL 7-18 N (test code = BUN) GLOMERULAR FILTRATION > 60.00 >=60 Report ing units: RATE (test code = GFR) mL/mi n/1.73m\\S\\2 (Modified MDRD formula)REFEREN CE RANGE: > or = 6 0 ml/min/1.73M2IF PATIENT IS -EVA N, MULTIPLY REPORT ED RESULT BY06.07. CREATININE (test code 0.90 mg/dL 0.67-1.17 N = CREAT) CALCIUM (test code = 8.6 mg/dL 8.5-10.1 N CA) BASIC METABOLIC [id number] 11:25:00 Test Item Value Reference Range Interpretation Comments SODIUM (test code = NA) 136 mmol/L 136-145 N POTASSIUM (test code = K) 3.8 mmol/L 3.5-5.1 N CHLORIDE (test code = CL) 101 mmol/L 98-107 N CARBON DIOXIDE (test code = CO2) 27 mmol/L 21-32 N GLUCOSE (test code = GLU) 337 mg/dL 70-100 H BLOOD UREA NITROGEN (test code = 12 mg/dL 7-18 N BUN) GLOMERULAR FILTRATION RATE (test >=60 code = GFR) CREATININE (test code = CREAT) mg/dL 0.67-1.17 CALCIUM (test code = CA) 8.6 mg/dL 8.5-10.1 N BASIC METABOLIC [id number] 11:24:00 Test Item Value Reference Range Interpretation Comments SODIUM (test code = NA) 136 mmol/L 136-145 N POTASSIUM (test code = K) 3.8 mmol/L 3.5-5.1 N CHLORIDE (test code = CL) 101 mmol/L 98-107 N CARBON DIOXIDE (test code = CO2) 27 mmol/L 21-32 N GLUCOSE (test code = GLU) mg/dL 70-100 BLOOD UREA NITROGEN (test code = mg/dL 7-18 BUN) GLOMERULAR FILTRATION RATE (test >=60 code = GFR) CREATININE (test code = CREAT) mg/dL 0.67-1.17 CALCIUM (test code = CA) 8.6 mg/dL 8.5-10.1 N CBC W/AUTO [id number] 09:58:00 Test Item Value Reference Range Interpretation Comments WHITE BLOOD CELL (test code = 12.7 X10(3) 4.5-11.0 H WBC) RED BLOOD CELL (test code = 3.83 X10(6) 4.3-5.9 L RBC) HEMOGLOBIN (test code = HGB) 11.6 g/dL 13.5-18.0 L HEMATOCRIT (test code = HCT) 35.8 % 42.0-52.0 L MEAN CELL VOLUME (test code = 93.5 fl 78-100 N MCV) MEAN CELL HGB (test code = MCH) 30.3 pg 26.0-34.0 N MEAN CELL HGB CONCETRATION 32.4 g/dl 30.0-37.0 N (test code = MCHC) RED CELL DISTRIBUTION WIDTH 11.9 % 11.5-14.5 N (test code = RDW) PLATELET COUNT (test code = 511 X10(3) 150-350 H PLT) MEAN PLATELET VOLUME (test code 9.3 fl 8.7-11.4 N = MPV) NEUTROPHIL % (test code = NT%) 73.5 % 36.0-66.0 H IMMATURE GRANULOCYTE % (test 1.2 % 0.0-2.0 N code = IG%) LYMPHOCYTE % (test code = LY%) 17.9 % 16.0-50.0 N MONOCYTE % (test code = MO%) 6.6 % 0.0-13.0 N EOSINOPHIL % (test code = EO%) 0.5 % 0.0-4.5 N BASOPHIL % (test code = BA%) 0.3 % 0.0-1.5 N NUCLEATED RBC % (test code = 0.0 % 0-0.2 N NRBC%) NEUTROPHIL # (test code = NT#) 9.35 X10(3) 1.70-7.70 H IMMATURE GRANULOCYTE # (test 0.15 X10(3)uL 0.00-0.03 H code = IG#) LYMPHOCYTE # (test code = LY#) 2.27 X10(3) 0.70-4.00 N MONOCYTE # (test code = MO#) 0.84 X10(3) 0.00-0.89 N EOSINOPHIL # (test code = EO#) 0.06 X10(3) 0.00-0.60 N BASOPHIL # (test code = BA#) 0.04 X10(3) 0.00-0.20 N NUCLEATED RBC # (test code = 0.00 K/mm3 0.0-0.1 N NRBC#) MORPHOLOGY COMMENT (test code = NORMAL MOC) PLATELET ESTIMATE (test code = INCREASED ADEQUATE PLTEST) BASIC METABOLIC [id number] 08:57:00 Test Item Value Reference Range Interpretation Comments SODIUM (test code = NA) 136 mmol/L 136-145 N POTASSIUM (test code = K) 3.8 mmol/L 3.5-5.1 N CHLORIDE (test code = CL) 101 mmol/L 98-107 N CARBON DIOXIDE (test code = CO2) mmol/L 21-32 GLUCOSE (test code = GLU) mg/dL 70-100 BLOOD UREA NITROGEN (test code = mg/dL 7-18 BUN) GLOMERULAR FILTRATION RATE (test >=60 code = GFR) CREATININE (test code = CREAT) mg/dL 0.67-1.17 CALCIUM (test code = CA) mg/dL 8.5-10.1 CBC W/AUTO [id number] 08:42:00 Test Item Value Reference Range Interpretation Comments WHITE BLOOD CELL (test code = 12.7 X10(3) 4.5-11.0 H WBC) RED BLOOD CELL (test code = RBC) 3.83 X10(6) 4.3-5.9 L HEMOGLOBIN (test code = HGB) 11.6 g/dL 13.5-18.0 L HEMATOCRIT (test code = HCT) 35.8 % 42.0-52.0 L MEAN CELL VOLUME (test code = 93.5 fl 78-100 N MCV) MEAN CELL HGB (test code = MCH) 30.3 pg 26.0-34.0 N MEAN CELL HGB CONCETRATION (test 32.4 g/dl 30.0-37.0 N code = MCHC) RED CELL DISTRIBUTION WIDTH (test 11.9 % 11.5-14.5 N code = RDW) PLATELET COUNT (test code = PLT) 511 X10(3) 150-350 H MEAN PLATELET VOLUME (test code = 9.3 fl 8.7-11.4 N MPV) NUCLEATED RBC % (test code = 0.0 % 0-0.2 N NRBC%) NUCLEATED RBC # (test code = 0.00 K/mm3 0.0-0.1 N NRBC#) [id number] 07:57:00 Test Item Value Reference Range Interpretation Comments GLUBED (test code = 330 mg/dL 70-105 H Performe d by certified GLUBED) 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 [facility]2020-07-20 22:44:00 Test Item Value Reference Range Interpretation Comments GLUBED (test code = 284 mg/dL 70-105 H Performe d by certified GLUBED) 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 [facility]2020-07-20 18:22:00 Test Item Value Reference Range Interpretation Comments GLUBED (test code = 269 mg/dL 70-105 H Performe d by certified GLUBED) 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 [facility]2020-07-20 13:13:00 Test Item Value Reference Range Interpretation Comments GLUBED (test code = 202 mg/dL 70-105 H Performe d by certified GLUBED) 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 [facility] BASIC METABOLIC [id number] 09:04:00 Test Item Value Reference Range Interpretation Comments SODIUM (test code = 135 mmol/L 136-145 L NA) POTASSIUM (test code = 3.4 mmol/L 3.5-5.1 L K) CHLORIDE (test code = 100 mmol/L 98-107 N CL) CARBON DIOXIDE (test 30 mmol/L 21-32 N code = CO2) GLUCOSE (test code = 248 mg/dL 70-100 H GLU) BLOOD UREA NITROGEN 11 mg/dL 7-18 N (test code = BUN) GLOMERULAR FILTRATION > 60.00 >=60 Report ing units: RATE (test code = GFR) mL/mi n/1.73m\\S\\2 (Modified MDRD formula)REFEREN CE RANGE: > or = 6 0 ml/min/1.73M2IF PATIENT IS -EVA N, MULTIPLY REPORT ED RESULT BY1.21. CREATININE (test code 0.80 mg/dL 0.67-1.17 N = CREAT) CALCIUM (test code = 9.2 mg/dL 8.5-10.1 N CA) BASIC METABOLIC [id number] 09:03:00 Test Item Value Reference Range Interpretation Comments SODIUM (test code = NA) 135 mmol/L 136-145 L POTASSIUM (test code = K) 3.4 mmol/L 3.5-5.1 L CHLORIDE (test code = CL) 100 mmol/L 98-107 N CARBON DIOXIDE (test code = CO2) 30 mmol/L 21-32 N GLUCOSE (test code = GLU) 248 mg/dL 70-100 H BLOOD UREA NITROGEN (test code = 11 mg/dL 7-18 N BUN) GLOMERULAR FILTRATION RATE (test >=60 code = GFR) CREATININE (test code = CREAT) mg/dL 0.67-1.17 CALCIUM (test code = CA) 9.2 mg/dL 8.5-10.1 N BASIC METABOLIC [id number] 09:01:00 Test Item Value Reference Range Interpretation Comments SODIUM (test code = NA) 135 mmol/L 136-145 L POTASSIUM (test code = K) 3.4 mmol/L 3.5-5.1 L CHLORIDE (test code = CL) 100 mmol/L 98-107 N CARBON DIOXIDE (test code = CO2) mmol/L 21-32 GLUCOSE (test code = GLU) 248 mg/dL 70-100 H BLOOD UREA NITROGEN (test code = 11 mg/dL 7-18 N BUN) GLOMERULAR FILTRATION RATE (test >=60 code = GFR) CREATININE (test code = CREAT) mg/dL 0.67-1.17 CALCIUM (test code = CA) 9.2 mg/dL 8.5-10.1 N PROTHROMBIN [id number] 09:01:00 Test Item Value Reference Interpretation Comments Range PROTHROMBIN TIME 9.9 SECONDS 8.7-12.1 N THERAPEUTIC LEVEL: 1.5 TO PATIENT (test code 1.9 TIMES NORMAL RANGE = PTP) INTERNATIONAL 0.9 Recommended Th erapeutic NORMAL RATIO (test PT Ratios For Oral code = INR) AnticoagulantTh erapy. CONDITION INT'L N ORMALIZED PT RATIO------- --- Prophylaxis of venous thrombosis 2.0 - 3.0in high [facility] medical or surgicalpati ents, treatment of venousthrombosi s, prevention of e mbolism. Prevention of r ecurrent embolism, 2.5 - 3.5or treatment of patients with mechanicalprost hetic heart valves. LAB ANTICOAGULANT QUERY UNKNOWNTHROMBOPLASTIN TIME [id number] 09:01:00 Test Item Value Reference Range Interpretation Comments THROMBOPLASTIN TIME PARTIAL 29.3 seconds 22.8-34.4 N (test code = PTT) LAB ANTICOAGULANT QUERY UNKNOWNBASIC METABOLIC [id number] 08:46:00 Test Item Value Reference Range Interpretation Comments SODIUM (test code = NA) 135 mmol/L 136-145 L POTASSIUM (test code = K) 3.4 mmol/L 3.5-5.1 L CHLORIDE (test code = CL) 100 mmol/L 98-107 N CARBON DIOXIDE (test code = CO2) mmol/L 21-32 GLUCOSE (test code = GLU) mg/dL 70-100 BLOOD UREA NITROGEN (test code = mg/dL 7-18 BUN) GLOMERULAR FILTRATION RATE (test >=60 code = GFR) CREATININE (test code = CREAT) mg/dL 0.67-1.17 CALCIUM (test code = CA) mg/dL 8.5-10.1 CBC W/AUTO [id number] 08:33:00 Test Item Value Reference Range Interpretation Comments WHITE BLOOD CELL (test code = 11.9 X10(3) 4.5-11.0 H WBC) RED BLOOD CELL (test code = 4.16 X10(6) 4.3-5.9 L RBC) HEMOGLOBIN (test code = HGB) 12.5 g/dL 13.5-18.0 L HEMATOCRIT (test code = HCT) 38.7 % 42.0-52.0 L MEAN CELL VOLUME (test code = 93.0 fl 78-100 N MCV) MEAN CELL HGB (test code = MCH) 30.0 pg 26.0-34.0 N MEAN CELL HGB CONCETRATION 32.3 g/dl 30.0-37.0 N (test code = MCHC) RED CELL DISTRIBUTION WIDTH 11.9 % 11.5-14.5 N (test code = RDW) PLATELET COUNT (test code = 520 X10(3) 150-350 H PLT) MEAN PLATELET VOLUME (test code 9.3 fl 8.7-11.4 N = MPV) NEUTROPHIL % (test code = NT%) 69.7 % 36.0-66.0 H IMMATURE GRANULOCYTE % (test 1.2 % 0.0-2.0 N code = IG%) LYMPHOCYTE % (test code = LY%) 20.0 % 16.0-50.0 N MONOCYTE % (test code = MO%) 7.8 % 0.0-13.0 N EOSINOPHIL % (test code = EO%) 0.9 % 0.0-4.5 N BASOPHIL % (test code = BA%) 0.4 % 0.0-1.5 N NUCLEATED RBC % (test code = 0.0 % 0-0.2 N NRBC%) NEUTROPHIL # (test code = NT#) 8.27 X10(3) 1.70-7.70 H IMMATURE GRANULOCYTE # (test 0.14 X10(3)uL 0.00-0.03 H code = IG#) LYMPHOCYTE # (test code = LY#) 2.38 X10(3) 0.70-4.00 N MONOCYTE # (test code = MO#) 0.93 X10(3) 0.00-0.89 H EOSINOPHIL # (test code = EO#) 0.11 X10(3) 0.00-0.60 N BASOPHIL # (test code = BA#) 0.05 X10(3) 0.00-0.20 N NUCLEATED RBC # (test code = 0.00 K/mm3 0.0-0.1 N NRBC#) [id number] 08:03:00 Test Item Value Reference Range Interpretation Comments GLUBED (test code = 240 mg/dL 70-105 H Performe d by certified GLUBED) 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 [facility] [id number] 21:40:00 Test Item Value Reference Range Interpretation Comments GLUBED (test code = 208 mg/dL 70-105 H Performe d by certified GLUBED) 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 [facility] [id number] 17:39:00 Test Item Value Reference Range Interpretation Comments GLUBED (test code = 250 mg/dL 70-105 H Performe d by certified GLUBED) 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 Antigen is generallydet ectable in upper respir atory specimens durin g the acutephase of i nfection. Positive result s indicate the pr esenceof viral antigens, but clinical correl ation with patienthis tory and other diagnosti c information is necessary todetermine inf ection status. Negativ e results should be treat ed as presumptive and confirmed with a molecula r assay, if necessary fo r patientmanageme nt. Negative result s do not rule out COVID- 19 andshould not b e used as the sole basis for treatment orpat ient management deci sions, including infec tion controldecision s. Negative result s should be considered i n thecontext of a patient's recen t exposures, hist ory and thepresence of clinical signs and sympt oms consistent with COVID-19. The Sebastien SARS Antigen OTILIO is only for use under the Fooda nd Drug Administration' s Emergency Use Authorization. 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 [facility] [id number] 09:54:00 Test Item Value Reference Range Interpretation Comments GLYCOSYLATED 11.3 % <5.7 H SAMPSON GGESTED HEMOGLOBIN (HA1C) DIAGNOSIS (test code = GLYHGB) INTERPR ETATION -------- Normal: < 5.7% Prediabetes: 5 .7 - 6.4% Diabetic: >/ = 6.5%* DUE TO METHOD R EVISION, REFERENCE RANGE HAS BEEN UPDATED * ESTIMATED AVERAGE 278 MG/DL <126 GLUCOSE (test code = EAG) BASIC METABOLIC [id number] 09:16:00 Test Item Value Reference Range Interpretation Comments SODIUM (test code = 134 mmol/L 136-145 L NA) POTASSIUM (test code = 3.5 mmol/L 3.5-5.1 N K) CHLORIDE (test code = 99 mmol/L 98-107 N CL) CARBON DIOXIDE (test 29 mmol/L 21-32 N code = CO2) GLUCOSE (test code = 220 mg/dL 70-100 H GLU) BLOOD UREA NITROGEN 8 mg/dL 7-18 N (test code = BUN) GLOMERULAR FILTRATION > 60.00 >=60 Report ing units: RATE (test code = GFR) mL/mi n/1.73m\\S\\2 (Modified MDRD formula)REFEREN CE RANGE: > or = 6 0 ml/min/1.73M2IF PATIENT IS -EVA N, MULTIPLY REPORT ED RESULT BY1.21. CREATININE (test code 0.80 mg/dL 0.67-1.17 = CREAT) CALCIUM (test code = 9.5 mg/dL 8.5-10.1 N CA) CBC W/AUTO [id number] 08:55:00 Test Item Value Reference Range Interpretation Comments WHITE BLOOD CELL (test code = 10.5 X10(3) 4.5-11.0 N WBC) RED BLOOD CELL (test code = 4.05 X10(6) 4.3-5.9 L RBC) HEMOGLOBIN (test code = HGB) 12.4 g/dL 13.5-18.0 L HEMATOCRIT (test code = HCT) 38.1 % 42.0-52.0 L MEAN CELL VOLUME (test code = 94.1 fl 78-100 N MCV) MEAN CELL HGB (test code = MCH) 30.6 pg 26.0-34.0 N MEAN CELL HGB CONCETRATION 32.5 g/dl 30.0-37.0 N (test code = MCHC) RED CELL DISTRIBUTION WIDTH 11.8 % 11.5-14.5 N (test code = RDW) PLATELET COUNT (test code = 463 X10(3) 150-350 H PLT) MEAN PLATELET VOLUME (test code 9.6 fl 8.7-11.4 N = MPV) NEUTROPHIL % (test code = NT%) 70.0 % 36.0-66.0 H IMMATURE GRANULOCYTE % (test 1.6 % 0.0-2.0 N code = IG%) LYMPHOCYTE % (test code = LY%) 18.9 % 16.0-50.0 N MONOCYTE % (test code = MO%) 8.1 % 0.0-13.0 N EOSINOPHIL % (test code = EO%) 0.8 % 0.0-4.5 N BASOPHIL % (test code = BA%) 0.6 % 0.0-1.5 N NUCLEATED RBC % (test code = 0.0 % 0-0.2 N NRBC%) NEUTROPHIL # (test code = NT#) 7.33 X10(3) 1.70-7.70 N IMMATURE GRANULOCYTE # (test 0.17 X10(3)uL 0.00-0.03 H code = IG#) LYMPHOCYTE # (test code = LY#) 1.98 X10(3) 0.70-4.00 N MONOCYTE # (test code = MO#) 0.85 X10(3) 0.00-0.89 N EOSINOPHIL # (test code = EO#) 0.08 X10(3) 0.00-0.60 N BASOPHIL # (test code = BA#) 0.06 X10(3) 0.00-0.20 N NUCLEATED RBC # (test code = 0.00 K/mm3 0.0-0.1 N NRBC#) [id number] 08:21:00 Test Item Value Reference Range Interpretation Comments GLUBED (test code = 228 mg/dL 70-105 H Performe d by certified GLUBED) 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 [facility] [id number] 21:14:00 Test Item Value Reference Range Interpretation Comments GLUBED (test code = 178 mg/dL 70-105 H Performe d by certified GLUBED) 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 [facility] [id number] 17:11:00 Test Item Value Reference Range Interpretation Comments GLUBED (test code = 149 mg/dL 70-105 H Performe d by certified GLUBED) 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 [facility] - NM BONE 3 [id number] 15:01:00 FAX: Galindo Abdullahi MD [phone] [place]: [facility] St: ADM Name: RADHA CARPENTER [facility] : 1980 Age/S: 39/M [address] [facility] Unit#: [id number] Loc: [address] [address] Phys: Joe Wolf MD Acct: [id number] Dis Date: Status: ADM IN PHONE #: [phone] Exam Date: 12/02/2019 8508 FAX #: [phone] Reason: DIABETIC FOOT/UNABLE TO HAVE MRI EXAMS: CPT CODE: [id number] NM BONE 3 PHASE 27543 RADIOPHARMACEUTICAL: 20 mCi Tc-99m -MDP IV Correlated with foot radiograph dated December 01, 2019 FINDINGS: Three phase imaging was performed of the bilateral feet with immediate blood flow views, blood pool images, and delayed whole-body images provided. Increase immediate, delayed blood flow, and delayed imaging scintigraphic activity involving the right foot third through fifth metatarsals. Diffuse increased activity of the soft tissues of the right foot. Increased scintigraphic activity seen on the delayed blood pool as well as delayed phase imaging involving the lateral malleolus of the left foot. IMPRESSION: 1. Right foot cellulitis with osteomyelitis involving the right foot third through fifth digits. 2. Increased radiotracer activity of the left ankle lateral malleolus concerning for osteomyelitis. Consider correlation with left ankle radiographs. Location: V20 at 1501 Reported and signed by: JIMMIE FERNANDEZ M.D. CC: Galindo Chris MD Technologist: Wilmer Arboleda,BSISAACT,TAR KETTLE RUNNER,RTR Trnscrd Date/Time/By: 12/03/2019 (9933) : By: [email or web address] Orig Print D/T: S: 12/03/2019 (7892) PAGE 1 Signed [id number] 12:21:00 Test Item Value Reference Range Interpretation Comments GLUBED (test code = 149 mg/dL 70-105 H Performe d by certified GLUBED) 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 [facility]2020-07-18 08:44:00 Test Item Value Reference Range Interpretation Comments GLUBED (test code = 191 mg/dL 70-105 H Performe d by certified GLUBED) 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 [facility]2020-07-17 21:21:00 Test Item Value Reference Range Interpretation Comments GLUBED (test code = 156 mg/dL 70-105 H Performe d by certified GLUBED) 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 [facility]2020-07-17 16:57:00 Test Item Value Reference Range Interpretation Comments GLUBED (test code = 143 mg/dL 70-105 H Performe d by certified GLUBED) 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 [facility]2020-07-17 11:37:00 Test Item Value Reference Range Interpretation Comments GLUBED (test code = 152 mg/dL 70-105 H Performe d by certified GLUBED) 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 [facility] BASIC METABOLIC [id number] 08:08:00 Test Item Value Reference Range Interpretation Comments SODIUM (test code = 137 mmol/L 136-145 N NA) POTASSIUM (test code = 4.0 mmol/L 3.5-5.1 N K) CHLORIDE (test code = 103 mmol/L 98-107 N CL) CARBON DIOXIDE (test 29 mmol/L 21-32 N code = CO2) GLUCOSE (test code = 134 mg/dL 70-100 H GLU) BLOOD UREA NITROGEN 11 mg/dL 7-18 (test code = BUN) GLOMERULAR FILTRATION > 60.00 >=60 Report ing units: RATE (test code = GFR) mL/mi n/1.73m\\S\\2 (Modified MDRD formula)REFEREN CE RANGE: > or = 6 0 ml/min/1.73M2IF PATIENT IS -EVA N, MULTIPLY REPORT ED RESULT BY1.21. CREATININE (test code 0.60 mg/dL 0.67-1.17 L = CREAT) CALCIUM (test code = 8.5 mg/dL 8.5-10.1 N CA) BASIC METABOLIC [id number] 08:04:00 Test Item Value Reference Range Interpretation Comments SODIUM (test code = NA) 137 mmol/L 136-145 N POTASSIUM (test code = K) 4.0 mmol/L 3.5-5.1 N CHLORIDE (test code = CL) 103 mmol/L 98-107 N CARBON DIOXIDE (test code = CO2) mmol/L 21-32 GLUCOSE (test code = GLU) mg/dL 70-100 BLOOD UREA NITROGEN (test code = mg/dL 7-18 BUN) GLOMERULAR FILTRATION RATE (test >=60 code = GFR) CREATININE (test code = CREAT) mg/dL 0.67-1.17 CALCIUM (test code = CA) 8.5 mg/dL 8.5-10.1 N BASIC METABOLIC [id number] 08:03:00 Test Item Value Reference Range Interpretation Comments SODIUM (test code = NA) 137 mmol/L 136-145 N POTASSIUM (test code = K) 4.0 mmol/L 3.5-5.1 N CHLORIDE (test code = CL) 103 mmol/L 98-107 N CARBON DIOXIDE (test code = CO2) mmol/L 21-32 GLUCOSE (test code = GLU) mg/dL 70-100 BLOOD UREA NITROGEN (test code = mg/dL 7-18 BUN) GLOMERULAR FILTRATION RATE (test >=60 code = GFR) CREATININE (test code = CREAT) mg/dL 0.67-1.17 CALCIUM (test code = CA) mg/dL 8.5-10.1 CBC W/AUTO [id number] 07:56:00 Test Item Value Reference Range Interpretation Comments WHITE BLOOD CELL (test code = 8.9 X10(3) 4.5-11.0 N WBC) RED BLOOD CELL (test code = 3.81 X10(6) 4.3-5.9 L RBC) HEMOGLOBIN (test code = HGB) 11.5 g/dL 13.5-18.0 L HEMATOCRIT (test code = HCT) 36.0 % 42.0-52.0 L MEAN CELL VOLUME (test code = 94.5 fl 78-100 N MCV) MEAN CELL HGB (test code = MCH) 30.2 pg 26.0-34.0 N MEAN CELL HGB CONCETRATION 31.9 g/dl 30.0-37.0 N (test code = MCHC) RED CELL DISTRIBUTION WIDTH 11.9 % 11.5-14.5 N (test code = RDW) PLATELET COUNT (test code = 366 X10(3) 150-350 H PLT) MEAN PLATELET VOLUME (test code 9.8 fl 8.7-11.4 N = MPV) NEUTROPHIL % (test code = NT%) 69.1 % 36.0-66.0 H IMMATURE GRANULOCYTE % (test 0.9 % 0.0-2.0 N code = IG%) LYMPHOCYTE % (test code = LY%) 17.8 % 16.0-50.0 N MONOCYTE % (test code = MO%) 10.9 % 0.0-13.0 N EOSINOPHIL % (test code = EO%) 1.0 % 0.0-4.5 N BASOPHIL % (test code = BA%) 0.3 % 0.0-1.5 N NUCLEATED RBC % (test code = 0.0 % 0-0.2 N NRBC%) NEUTROPHIL # (test code = NT#) 6.12 X10(3) 1.70-7.70 N IMMATURE GRANULOCYTE # (test 0.08 X10(3)uL 0.00-0.03 H code = IG#) LYMPHOCYTE # (test code = LY#) 1.58 X10(3) 0.70-4.00 N MONOCYTE # (test code = MO#) 0.97 X10(3) 0.00-0.89 H EOSINOPHIL # (test code = EO#) 0.09 X10(3) 0.00-0.60 N BASOPHIL # (test code = BA#) 0.03 X10(3) 0.00-0.20 N NUCLEATED RBC # (test code = 0.00 K/mm3 0.0-0.1 N NRBC#) [id number] 07:15:00 Test Item Value Reference Range Interpretation Comments GLUBED (test code = 125 mg/dL 70-105 H Performe d by certified GLUBED) 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 [facility] [id number] 21:13:00 Test Item Value Reference Range Interpretation Comments GLUBED (test code = 178 mg/dL 70-105 H Performe d by certified GLUBED) 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 [facility] [id number] 17:49:00 Test Item Value Reference Range Interpretation Comments GLYCOSYLATED 11.5 % <5.7 H SAMPSON GGESTED HEMOGLOBIN (HA1C) DIAGNOSIS (test code = GLYHGB) INTERPR ETATION -------- Normal: < 5.7% Prediabetes: 5 .7 - 6.4% Diabetic: >/ = 6.5%* DUE TO METHOD R EVISION, REFERENCE RANGE HAS BEEN UPDATED * ESTIMATED AVERAGE 283 MG/DL <126 GLUCOSE (test code = EAG) [id number] 16:39:00 Test Item Value Reference Range Interpretation Comments GLUBED (test code = 91 mg/dL 70-105 N Performe d by certified GLUBED) 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 [facility] BASIC METABOLIC [id number] 05:21:00 Test Item Value Reference Range Interpretation Comments SODIUM (test code = 139 mmol/L 136-145 N NA) POTASSIUM (test code = 3.5 mmol/L 3.5-5.1 N K) CHLORIDE (test code = 99 mmol/L 98-107 N CL) CARBON DIOXIDE (test 27 mmol/L 21-32 N code = CO2) GLUCOSE (test code = 106 mg/dL 70-100 H GLU) BLOOD UREA NITROGEN 26 mg/dL 7-18 H (test code = BUN) GLOMERULAR FILTRATION > 60.00 >=60 Report ing units: RATE (test code = GFR) mL/mi n/1.73m\\S\\2 (Modified MDRD formula)REFEREN CE RANGE: > or = 6 0 ml/min/1.73M2IF PATIENT IS -EVA N, MULTIPLY REPORT ED RESULT BY1.21. CREATININE (test code 1.18 mg/dl 0.70-1.30 N = CREAT) CALCIUM (test code = 10.2 mg/dL 8.5-10.1 H CA) LIVER [id number] 05:21:00 Test Item Value Reference Range Interpretation Comments TOTAL PROTEIN (test code = PROT) 9.5 g/dl 6.4-8.2 H ALBUMIN (test code = ALB) 4.0 g/dl 3.4-5.0 N BILIRUBIN TOTAL (test code = BILT) 0.3 mg/dL 0.2-1.0 N BILIRUBIN DIRECT (test code = 0.09 mg/dl 0.0-0.2 N BILD) SGOT/AST (test code = AST) 22 U/L 15-37 N SGPT/ALT (test code = ALT) 32 U/L 12-78 N ALKALINE PHOSPHATASE TOTAL (test 87 U/L 45-117 N code = ALKP) [id number] 05:21:00 Test Item Value Reference Range Interpretation Comments LIPASE (test code = LIP) 74 U/L 73-393 N PROCALCITONIN (PCT)2019-12-01 05:21:00 Test Item Value Reference Range Interpretation Comments PROCALCITONIN (PCT) 0.16 ng/mL <0.5 REFERENC E (test code = PROCAL) RANGES- -->2.0 ng/ml High risk for progression to severe sepsis and/o r septic shock.0. 5 - 2.0 ng/ml Sep sis should be considered.<0.5 ng/ml Lo w risk for progre ssion to severe sepsi s an d/or septic shock. CARDIO C REACTIVE PROTEIN [id number] 05:21:00 Test Item Value Reference Range Interpretation Comments CARDIO C REACTIVE 88.80 0.0-3.0 H CCRP MG/L RISK PROTEIN HS (test code ACCORD ING TO AHA/CDC = CCRP) GUIDELINES----- ---- ---------<1.0 LOW CARDIOVASCU LAR RISK1.0 - 3.[address] RAGE CARDIOVASCULAR RISK3.1 - 10.0 HIGH CARDIOVASCULAR RISK>10.0 PERSISTE NT ELEVATIONS MAY REPRESENT NON-CARDIOVASCU LAR INFLAMMATION CBC W/AUTO [id number] 03:55:00 Test Item Value Reference Range Interpretation Comments WHITE BLOOD CELL (test code = 11.7 X10(3) 4.5-11.0 H WBC) RED BLOOD CELL (test code = 4.65 X10(6) 4.3-5.9 N RBC) HEMOGLOBIN (test code = HGB) 14.1 g/dL 13.5-18.0 N HEMATOCRIT (test code = HCT) 42.2 % 42.0-52.0 N MEAN CELL VOLUME (test code = 90.8 fL 78-100 N MCV) MEAN CELL HGB (test code = MCH) 30.3 pg 26.0-34.0 N MEAN CELL HGB CONCETRATION 33.4 g/dl 30.0-37.0 N (test code = MCHC) RED CELL DISTRIBUTION WIDTH 11.3 % 11.5-14.5 L (test code = RDW) PLATELET COUNT (test code = 401 X10(3) 150-350 H PLT) MEAN PLATELET VOLUME (test code 9.3 fl 8.7-11.4 N = MPV) NEUTROPHIL % (test code = NT%) 74.0 % 36.0-66.0 H IMMATURE GRANULOCYTE % (test 0.8 % 0.0-2.0 N code = IG%) LYMPHOCYTE % (test code = LY%) 13.7 % 16-50 L MONOCYTE % (test code = MO%) 11.0 % 0.0-13.0 N EOSINOPHIL % (test code = EO%) 0.3 % 0.0-4.5 N BASOPHIL % (test code = BA%) 0.2 % 0.0-1.5 N NEUTROPHIL # (test code = NT#) 8.7 X10(3) 1.7-7.7 H IMMATURE GRANULOCYTE # (test 0.09 X10(3)uL 0.00-0.03 H code = IG#) LYMPHOCYTE # (test code = LY#) 1.6 X10(3) 1.0-4.8 N MONOCYTE # (test code = MO#) 1.3 X10(3) 0.0-0.89 H EOSINOPHIL # (test code = EO#) 0.0 X10(3) 0.0-0.6 N BASOPHIL # (test code = BA#) 0.0 X10(3) 0.0-0.2 N RBC MORPHOLOGY REQUIRED (test NO NORMAL code = RBCM) SED [id number] 03:55:00 Test Item Value Reference Range Interpretation Comments SED RATE (test code = SEDW) 26 mm/hr 0-15 H BASIC METABOLIC [id number] 03:39:00 Test Item Value Reference Range Interpretation Comments SODIUM (test code = 139 mmol/L 136-145 N NA) POTASSIUM (test code = 3.5 mmol/L 3.5-5.1 N K) CHLORIDE (test code = 99 mmol/L 98-107 N CL) CARBON DIOXIDE (test 27 mmol/L 21-32 N code = CO2) GLUCOSE (test code = 106 mg/dL 70-100 H GLU) BLOOD UREA NITROGEN 26 mg/dL 7-18 H (test code = BUN) GLOMERULAR FILTRATION > 60.00 >=60 Report ing units: RATE (test code = GFR) mL/mi n/1.73m\\S\\2 (Modified MDRD formula)REFEREN CE RANGE: > or = 6 0 ml/min/1.73M2IF PATIENT IS -EVA N, MULTIPLY REPORT ED RESULT BY1.21. CREATININE (test code 1.18 mg/dl 0.70-1.30 N = CREAT) CALCIUM (test code = 10.2 mg/dL 8.5-10.1 H CA) LIVER [id number] 03:39:00 Test Item Value Reference Range Interpretation Comments TOTAL PROTEIN (test code = PROT) 9.5 g/dl 6.4-8.2 H ALBUMIN (test code = ALB) 4.0 g/dl 3.4-5.0 N BILIRUBIN TOTAL (test code = BILT) 0.3 mg/dL 0.2-1.0 N BILIRUBIN DIRECT (test code = 0.09 mg/dl 0.0-0.2 N BILD) SGOT/AST (test code = AST) 22 U/L 15-37 N SGPT/ALT (test code = ALT) 32 U/L 12-78 N ALKALINE PHOSPHATASE TOTAL (test 87 U/L 45-117 N code = ALKP) [id number] 03:39:00 Test Item Value Reference Range Interpretation Comments LIPASE (test code = LIP) 74 U/L 73-393 N CARDIO C REACTIVE PROTEIN [id number] 03:39:00 Test Item Value Reference Range Interpretation Comments CARDIO C REACTIVE 88.80 0.0-3.0 H CCRP MG/L RISK PROTEIN HS (test code ACCORD ING TO AHA/CDC = CCRP) GUIDELINES----- ---- ---------<1.0 LOW CARDIOVASCU LAR RISK1.0 - 3.[address] RAGE CARDIOVASCULAR RISK3.1 - 10.0 HIGH CARDIOVASCULAR RISK>10.0 PERSISTE NT ELEVATIONS MAY REPRESENT NON-CARDIOVASCU LAR INFLAMMATION - XR FOOT 3+ V [id number] 03:11:00 FAX: Ld Rutherford [place]: St: PRE FAX: Galindo Abdullahi MD [phone] Name: RADHA CARPENTER [place] [facility] : 1980 Age/S: 39/M [address] Unit #: [id number] Loc: [place] [address] Phys: Ld Rutherford MD Acct: H [id number] Dis Date: Status: PRE ER PHONE #: Exam Date: 12/01/2019 0247 FAX #: Reason: diabetic foot wound, pain EXAMS: CPT CODE: [id number] XR FOOT 3+ [place] RT [id number] EXAM: - XR FOOT 3+ V RT HISTORY: Diabetic wound, pain. FINDINGS: AP, oblique, and lateral view of the right foot is provided. There is no acute fracture or malalignment. Chronic healed fracture in distal 5th metatarsal. No focal destructive osseous lesion is noted. Vascular calcifications are present possibly due to diabetes. IMPRESSION: No acute osseous abnormality. at 0311 Reported and signed by: CAMILLA CARDENAS M.D. CC: Ld Rutherford MD; Galindo Chris MD Tech nologist: Jamil Cox CT (R) Trnscrd Date/Time/By: 12/01/2019 (310) : By: [email or web address] Orig Print D/T: S: 12/01/2019 (313) PAGE 1 Signed ReportBASIC METABOLIC [id number] 02:59:00 Test Item Value Reference Range Interpretation Comments SODIUM (test code = 139 mmol/L 136-145 N NA) POTASSIUM (test code = 3.5 mmol/L 3.5-5.1 N K) CHLORIDE (test code = 99 mmol/L 98-107 N CL) CARBON DIOXIDE (test 27 mmol/L 21-32 N code = CO2) GLUCOSE (test code = 106 mg/dL 70-100 H GLU) BLOOD UREA NITROGEN 26 mg/dL 7-18 H (test code = BUN) GLOMERULAR FILTRATION > 60.00 >=60 Report ing units: RATE (test code = GFR) mL/mi n/1.73m\\S\\2 (Modified MDRD formula)REFEREN CE RANGE: > or = 6 0 ml/min/1.73M2IF PATIENT IS -EVA N, MULTIPLY REPORT ED RESULT BY1.21. CREATININE (test code 1.18 mg/dl 0.70-1.30 N = CREAT) CALCIUM (test code = 10.2 mg/dL 8.5-10.1 H CA) LIVER [id number] 02:59:00 Test Item Value Reference Range Interpretation Comments TOTAL PROTEIN (test code = PROT) 9.5 g/dl 6.4-8.2 H ALBUMIN (test code = ALB) 4.0 g/dl 3.4-5.0 N BILIRUBIN TOTAL (test code = BILT) 0.3 mg/dL 0.2-1.0 N BILIRUBIN DIRECT (test code = 0.09 mg/dl 0.0-0.2 N BILD) SGOT/AST (test code = AST) 22 U/L 15-37 N SGPT/ALT (test code = ALT) 32 U/L 12-78 N ALKALINE PHOSPHATASE TOTAL (test 87 U/L 45-117 N code = ALKP) [id number] 02:59:00 Test Item Value Reference Range Interpretation Comments LIPASE (test code = LIP) 74 U/L 73-393 N CARDIO C REACTIVE PROTEIN [id number] 02:59:00 Test Item Value Reference Range Interpretation Comments CARDIO C REACTIVE PROTEIN HS (test code 0.0-3.0 = CCRP) CBC W/AUTO [id number] 02:46:00 Test Item Value Reference Range Interpretation Comments WHITE BLOOD CELL (test code = 11.7 X10(3) 4.5-11.0 H WBC) RED BLOOD CELL (test code = 4.65 X10(6) 4.3-5.9 N RBC) HEMOGLOBIN (test code = HGB) 14.1 g/dL 13.5-18.0 N HEMATOCRIT (test code = HCT) 42.2 % 42.0-52.0 N MEAN CELL VOLUME (test code = 90.8 fL 78-100 N MCV) MEAN CELL HGB (test code = MCH) 30.3 pg 26.0-34.0 N MEAN CELL HGB CONCETRATION 33.4 g/dl 30.0-37.0 N (test code = MCHC) RED CELL DISTRIBUTION WIDTH 11.3 % 11.5-14.5 L (test code = RDW) PLATELET COUNT (test code = 401 X10(3) 150-350 H PLT) MEAN PLATELET VOLUME (test code 9.3 fl 8.7-11.4 N = MPV) NEUTROPHIL % (test code = NT%) 74.0 % 36.0-66.0 H IMMATURE GRANULOCYTE % (test 0.8 % 0.0-2.0 N code = IG%) LYMPHOCYTE % (test code = LY%) 13.7 % 16-50 L MONOCYTE % (test code = MO%) 11.0 % 0.0-13.0 N EOSINOPHIL % (test code = EO%) 0.3 % 0.0-4.5 N BASOPHIL % (test code = BA%) 0.2 % 0.0-1.5 N NEUTROPHIL # (test code = NT#) 8.7 X10(3) 1.7-7.7 H IMMATURE GRANULOCYTE # (test 0.09 X10(3)uL 0.00-0.03 H code = IG#) LYMPHOCYTE # (test code = LY#) 1.6 X10(3) 1.0-4.8 N MONOCYTE # (test code = MO#) 1.3 X10(3) 0.0-0.89 H EOSINOPHIL # (test code = EO#) 0.0 X10(3) 0.0-0.6 N BASOPHIL # (test code = BA#) 0.0 X10(3) 0.0-0.2 N RBC MORPHOLOGY REQUIRED (test NO NORMAL code = RBCM) SED [id number] 02:46:00 Test Item Value Reference Range Interpretation Comments SED RATE (test code = SEDW) mm/hr 0-15 [id number] 11:14:00 Test Item Value Reference Range Interpretation Comments GLUBED (test code = 223 mg/dL 70-105 H Performe d by certified GLUBED) 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 [facility] [id number] 06:41:00 Test Item Value Reference Range Interpretation Comments GLUBED (test code = 281 mg/dL 70-105 H Performe d by certified GLUBED) 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 [facility] COMPREHENSIVE METABOLIC [id number] 04:09:00 Test Item Value Reference Range Interpretation Comments SODIUM (test code = NA) 137 mmol/L 136-145 N POTASSIUM (test code = 4.1 mmol/L 3.5-5.1 N SLIGH TLY HEMOLYSIS K) CHLORIDE (test code = 103 mmol/L 98-107 N CL) CARBON DIOXIDE (test 27 mmol/L 21-32 N code = CO2) GLUCOSE (test code = 287 mg/dL 70-100 H GLU) BLOOD UREA NITROGEN 6 mg/dL 7-18 L (test code = BUN) GLOMERULAR FILTRATION > 60.00 >=60 Report ing units: RATE (test code = GFR) mL/mi n/1.73m\\S\\2 (Modified MDRD formula)REFEREN CE RANGE: > or = 6 0 ml/min/1.73M2IF PATIENT IS -EVA N, MULTIPLY REPORT ED RESULT BY1.21. CREATININE (test code = 0.80 mg/dL 0.67-1.17 N CREAT) TOTAL PROTEIN (test 6.6 g/dl 6.4-8.2 N code = PROT) ALBUMIN (test code = 3.2 g/dl 3.4-5.0 L ALB) CALCIUM (test code = 8.8 mg/dL 8.5-10.1 N CA) BILIRUBIN TOTAL (test 0.7 mg/dl 0.2-1.0 N code = BILT) SGOT/AST (test code = 44 U/L 15-37 H AST) SGPT/ALT (test code = 28 U/L 12-78 N ALT) ALKALINE PHOSPHATASE 54 U/L 50-136 N TOTAL (test code = ALKP) CBC W/AUTO [id number] 03:32:00 Test Item Value Reference Range Interpretation Comments WHITE BLOOD CELL (test code = 5.7 X10(3) 4.5-11.0 N WBC) RED BLOOD CELL (test code = 4.17 X10(6) 4.3-5.9 L RBC) HEMOGLOBIN (test code = HGB) 12.9 g/dL 13.5-18.0 L HEMATOCRIT (test code = HCT) 37.9 % 42.0-52.0 L MEAN CELL VOLUME (test code = 90.9 fl 78-100 N MCV) MEAN CELL HGB (test code = MCH) 30.9 pg 26.0-34.0 N MEAN CELL HGB CONCETRATION 34.0 g/dl 30.0-37.0 N (test code = MCHC) RED CELL DISTRIBUTION WIDTH 11.5 % 11.5-14.5 N (test code = RDW) PLATELET COUNT (test code = 252 X10(3) 150-350 N PLT) MEAN PLATELET VOLUME (test code 10.3 fl 8.7-11.4 N = MPV) NEUTROPHIL % (test code = NT%) 58.6 % 36.0-66.0 N IMMATURE GRANULOCYTE % (test 0.5 % 0.0-2.0 N code = IG%) LYMPHOCYTE % (test code = LY%) 31.6 % 16.0-50.0 N MONOCYTE % (test code = MO%) 8.4 % 0.0-13.0 N EOSINOPHIL % (test code = EO%) 0.7 % 0.0-4.5 N BASOPHIL % (test code = BA%) 0.2 % 0.0-1.5 N NUCLEATED RBC % (test code = 0.0 % 0-0.2 N NRBC%) NEUTROPHIL # (test code = NT#) 3.35 X10(3) 1.70-7.70 N IMMATURE GRANULOCYTE # (test 0.03 X10(3)uL 0.00-0.03 N code = IG#) LYMPHOCYTE # (test code = LY#) 1.81 X10(3) 0.70-4.00 N MONOCYTE # (test code = MO#) 0.48 X10(3) 0.00-0.89 N EOSINOPHIL # (test code = EO#) 0.04 X10(3) 0.00-0.60 N BASOPHIL # (test code = BA#) 0.01 X10(3) 0.00-0.20 N NUCLEATED RBC # (test code = 0.00 K/mm3 0.0-0.1 N NRBC#) [id number] 20:11:00 Test Item Value Reference Range Interpretation Comments GLUBED (test code = 123 mg/dL 70-105 H Performe d by certified GLUBED) 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 [facility]2020-05-31 15:45:00 Test Item Value Reference Range Interpretation Comments GLUBED (test code = 156 mg/dL 70-105 H Performe d by certified GLUBED) 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 [facility]2020-05-31 11:33:00 Test Item Value Reference Range Interpretation Comments GLUBED (test code = 203 mg/dL 70-105 H Performe d by certified GLUBED) 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 [facility]2020-05-31 07:00:00 Test Item Value Reference Range Interpretation Comments GLUBED (test code = 219 mg/dL 70-105 H Performe d by certified GLUBED) 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 [facility]2020-05-30 22:19:00 Test Item Value Reference Range Interpretation Comments GLUBED (test code = 168 mg/dL 70-105 H Performe d by certified GLUBED) 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 [facility]2020-05-30 17:28:00 Test Item Value Reference Range Interpretation Comments GLUBED (test code = 115 mg/dL 70-105 H Performe d by certified GLUBED) 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 [facility] COMPREHENSIVE METABOLIC [id number] 12:30:00 Test Item Value Reference Range Interpretation Comments SODIUM (test code = NA) 135 mmol/L 136-145 L POTASSIUM (test code = 3.6 mmol/L 3.5-5.1 K) CHLORIDE (test code = 102 mmol/L 98-107 N CL) CARBON DIOXIDE (test 28 mmol/L 21-32 N code = CO2) GLUCOSE (test code = 206 mg/dL 70-100 H GLU) BLOOD UREA NITROGEN 14 mg/dL 7-18 N (test code = BUN) GLOMERULAR FILTRATION > 60.00 >=60 Report ing units: RATE (test code = GFR) mL/mi n/1.73m\\S\\2 (Modified MDRD formula)REFEREN CE RANGE: > or = 6 0 ml/min/1.73M2IF PATIENT IS -EVA N, MULTIPLY REPORT ED RESULT BY1.21. CREATININE (test code = 0.80 mg/dL 0.67-1.17 N CREAT) TOTAL PROTEIN (test 7.4 g/dl 6.4-8.2 N code = PROT) ALBUMIN (test code = 3.7 g/dl 3.4-5.0 N ALB) CALCIUM (test code = 9.1 mg/dL 8.5-10.1 N CA) BILIRUBIN TOTAL (test 0.6 mg/dl 0.2-1.0 N code = BILT) SGOT/AST (test code = 18 U/L 15-37 AST) SGPT/ALT (test code = 30 U/L 12-78 N ALT) ALKALINE PHOSPHATASE 56 U/L 50-136 N TOTAL (test code = ALKP) CBC W/AUTO [id number] 12:22:00 Test Item Value Reference Range Interpretation Comments WHITE BLOOD CELL (test code = 5.3 X10(3) 4.5-11.0 N WBC) RED BLOOD CELL (test code = 4.38 X10(6) 4.3-5.9 N RBC) HEMOGLOBIN (test code = HGB) 13.4 g/dL 13.5-18.0 L HEMATOCRIT (test code = HCT) 40.0 % 42.0-52.0 L MEAN CELL VOLUME (test code = 91.3 fl 78-100 N MCV) MEAN CELL HGB (test code = MCH) 30.6 pg 26.0-34.0 N MEAN CELL HGB CONCETRATION 33.5 g/dl 30.0-37.0 N (test code = MCHC) RED CELL DISTRIBUTION WIDTH 11.6 % 11.5-14.5 N (test code = RDW) PLATELET COUNT (test code = 261 X10(3) 150-350 N PLT) MEAN PLATELET VOLUME (test code 10.7 fl 8.7-11.4 N = MPV) NEUTROPHIL % (test code = NT%) 62.0 % 36.0-66.0 N IMMATURE GRANULOCYTE % (test 0.4 % 0.0-2.0 N code = IG%) LYMPHOCYTE % (test code = LY%) 29.8 % 16.0-50.0 N MONOCYTE % (test code = MO%) 6.3 % 0.0-13.0 N EOSINOPHIL % (test code = EO%) 1.1 % 0.0-4.5 N BASOPHIL % (test code = BA%) 0.4 % 0.0-1.5 N NUCLEATED RBC % (test code = 0.0 % 0-0.2 N NRBC%) NEUTROPHIL # (test code = NT#) 3.26 X10(3) 1.70-7.70 N IMMATURE GRANULOCYTE # (test 0.02 X10(3)uL 0.00-0.03 N code = IG#) LYMPHOCYTE # (test code = LY#) 1.57 X10(3) 0.70-4.00 N MONOCYTE # (test code = MO#) 0.33 X10(3) 0.00-0.89 N EOSINOPHIL # (test code = EO#) 0.06 X10(3) 0.00-0.60 N BASOPHIL # (test code = BA#) 0.02 X10(3) 0.00-0.20 N NUCLEATED RBC # (test code = 0.00 K/mm3 0.0-0.1 N NRBC#) [id number] 11:24:00 Test Item Value Reference Range Interpretation Comments GLUBED (test code = 233 mg/dL 70-105 H Performe d by certified GLUBED) 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 [facility] [id number] 07:03:00 Test Item Value Reference Range Interpretation Comments GLUBED (test code = 221 mg/dL 70-105 H Performe d by certified GLUBED) 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 [facility] [id number] 20:59:00 Test Item Value Reference Range Interpretation Comments GLUBED (test code = 176 mg/dL 70-105 H Performe d by certified GLUBED) 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 [facility] [id number] 16:00:00 Test Item Value Reference Range Interpretation Comments GLUBED (test code = 204 mg/dL 70-105 H Performe d by certified GLUBED) 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 [facility] BASIC METABOLIC [id number] 13:27:00 Test Item Value Reference Range Interpretation Comments SODIUM (test code = 134 mmol/L 136-145 L NA) POTASSIUM (test code = 4.7 mmol/L 3.5-5.1 N K) CHLORIDE (test code = 104 mmol/L 98-107 N CL) CARBON DIOXIDE (test 22 mmol/L 21-32 N code = CO2) GLUCOSE (test code = 260 mg/dL 70-100 H GLU) BLOOD UREA NITROGEN 21 mg/dL 7-18 H (test code = BUN) GLOMERULAR FILTRATION > 60.00 >=60 Report ing units: RATE (test code = GFR) mL/mi n/1.73m\\S\\2 (Modified MDRD formula)REFEREN CE RANGE: > or = 6 0 ml/min/1.73M2IF PATIENT IS -EVA N, MULTIPLY REPORT ED RESULT BY1.21. CREATININE (test code 0.90 mg/dL 0.67-1.17 = CREAT) CALCIUM (test code = 9.0 mg/dL 8.5-10.1 N CA) BASIC METABOLIC [id number] 13:26:00 Test Item Value Reference Range Interpretation Comments SODIUM (test code = NA) 134 mmol/L 136-145 L POTASSIUM (test code = K) 4.7 mmol/L 3.5-5.1 N CHLORIDE (test code = CL) 104 mmol/L 98-107 N CARBON DIOXIDE (test code = CO2) 22 mmol/L 21-32 N GLUCOSE (test code = GLU) 260 mg/dL 70-100 H BLOOD UREA NITROGEN (test code = 21 mg/dL 7-18 H BUN) GLOMERULAR FILTRATION RATE (test >=60 code = GFR) CREATININE (test code = CREAT) mg/dL 0.67-1.17 CALCIUM (test code = CA) 9.0 mg/dL 8.5-10.1 N [id number] 13:04:00 Test Item Value Reference Range Interpretation Comments GLUBED (test code = 241 mg/dL 70-105 H Performe d by certified GLUBED) 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 [facility] [id number] 06:22:00 Test Item Value Reference Range Interpretation Comments GLUBED (test code = 218 mg/dL 70-105 H Performe d by certified GLUBED) 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 [facility] [id number] 20:52:00 Test Item Value Reference Range Interpretation Comments GLUBED (test code = 189 mg/dL 70-105 H Performe d by certified GLUBED) 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 [facility] [id number] 16:02:00 Test Item Value Reference Range Interpretation Comments GLUBED (test code = 253 mg/dL 70-105 H Performe d by certified GLUBED) 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 [facility] [id number] 13:35:00 Test Item Value Reference Range Interpretation Comments GLYCOSYLATED 13.3 % <5.7 H SAMPSON GGESTED HEMOGLOBIN (HA1C) DIAGNOSIS (test code = GLYHGB) INTERPR ETATION -------- Normal: < 5.7% Prediabetes: 5 .7 - 6.4% Diabetic: >/ = 6.5%* DUE TO METHOD R EVISION, REFERENCE RANGE HAS BEEN UPDATED * ESTIMATED AVERAGE 335 MG/DL <126 GLUCOSE (test code = EAG) [id number] 13:13:00 Test Item Value Reference Range Interpretation Comments GLUBED (test code = 245 mg/dL 70-105 H Performe d by certified GLUBED) 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 [facility] [id number] 08:01:00 Test Item Value Reference Range Interpretation Comments GLUBED (test code = 352 mg/dL 70-105 H Performe d by certified GLUBED) 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 [facility] UA RFLX MICROSCOPIC [id number] 07:45:00 Test Item Value Reference Range Interpretation Comments UA COLOR (test code = LT YELLOW YELLOW COLU) UA APPEARANCE (test CLEAR CLEAR code = APPU) UA GLUCOSE DIPSTICK >1000 mg/dl NORMAL URGENT V ALUE---- (test code = DGLUU) RESULT C ESVIN AND READ BACK Martin ARCOS [id number] 0. Tan,Eboyn A UA BILIRUBIN DIPSTICK NEGATIVE mg/dl NEGATIVE (test code = BILU) UA KETONE DIPSTICK 80 mg/dl NEGATIVE A (test code = KETU) UA SPECIFIC GRAVITY 1.029 1.001-1.035 N (test code = SGU) UA BLOOD DIPSTICK NEGATIVE /UL NEGATIVE (test code = JACE) UA PH DIPSTICK (test 5.5 4.6-8.0 code = LINDA) UA PROTEIN DIPSTICK NEGATIVE mg/dl NEGATIVE (test code = PROU) UA UROBILINIOGEN NORMAL mg/dl NORMAL DIPSTICK (test code = URO) UA NITRITE DIPSTICK NEGATIVE NEGATIVE (test code = JOHN) UA LEUKOCYTE ESTERASE 75 /UL NEGATIVE A DIPSTICK (test code = LEUU) UA COMMENT (test code CLN CATCH = COMU) UA WBC (test code = 11-25 #/hpf 0-5 A WBCUR) UA RBC (test code = 3-5 #/hpf 0-5 RBCU) UA EPITHELIAL CELLS FEW /hpf NEG,FEW (test code = EPIU) UA BACTERIA (test code FEW /hpf NEGATIVE A = BACU) UA HYALINE CAST (test 3-5 #/lpf 0-2 A code = HYALU) Indication for culture: Dysuria/FrequencyURINE SOURCE: CLEAN CATCH URINE BASIC METABOLIC [id number] 06:25:00 Test Item Value Reference Range Interpretation Comments SODIUM (test code = 133 mmol/L 136-145 L NA) POTASSIUM (test code = 4.7 mmol/L 3.5-5.1 N K) CHLORIDE (test code = 100 mmol/L 98-107 N CL) CARBON DIOXIDE (test 22 mmol/L 21-32 N code = CO2) GLUCOSE (test code = 370 mg/dL 70-100 H GLU) BLOOD UREA NITROGEN 30 mg/dL 7-18 H (test code = BUN) GLOMERULAR FILTRATION 45.58 >=60 L Report ing units: RATE (test code = GFR) mL/mi n/1.73m\\S\\2 (Modified MDRD formula)REFEREN CE RANGE: > or = 6 0 ml/min/1.73M2IF PATIENT IS -EVA N, MULTIPLY REPORT ED RESULT BY1.21. CREATININE (test code 1.70 mg/dL 0.67-1.17 H = CREAT) CALCIUM (test code = 10.1 mg/dL 8.5-10.1 N CA) LIVER [id number] 06:25:00 Test Item Value Reference Range Interpretation Comments TOTAL PROTEIN (test code = PROT) 8.8 g/dl 6.4-8.2 H ALBUMIN (test code = ALB) 4.5 g/dl 3.4-5.0 N BILIRUBIN TOTAL (test code = BILT) 0.5 mg/dl 0.2-1.0 N BILIRUBIN DIRECT (test code = 0.09 mg/dl 0.0-0.4 N BILD) SGOT/AST (test code = AST) 0 U/L 15-37 L SGPT/ALT (test code = ALT) 37 U/L 12-78 N ALKALINE PHOSPHATASE TOTAL (test 69 U/L 50-136 N code = ALKP) [id number] 06:25:00 Test Item Value Reference Range Interpretation Comments LIPASE (test code = LIP) 68 U/L 73-393 L [id number] 06:25:00 Test Item Value Reference Range Interpretation Comments TROPONIN-I (test <0.015 ng/ml 0.00-0.045 N GUIDELINES: 0.08 - 0.09 code = TROPI) Indeterminate0 .10 Risk Stratifica tion Limit: Suggest sequential te sting0.60 - 1.50 AMI cut off: Myocardial Inju ry by WHO criteria CBC W/AUTO [id number] 06:04:00 Test Item Value Reference Range Interpretation Comments WHITE BLOOD CELL (test code = 9.2 X10(3) 4.5-11.0 N WBC) RED BLOOD CELL (test code = 5.01 X10(6) 4.3-5.9 N RBC) HEMOGLOBIN (test code = HGB) 15.3 g/dL 13.5-18.0 N HEMATOCRIT (test code = HCT) 45.5 % 42.0-52.0 N MEAN CELL VOLUME (test code = 90.8 fl 78-100 N MCV) MEAN CELL HGB (test code = MCH) 30.5 pg 26.0-34.0 N MEAN CELL HGB CONCETRATION 33.6 g/dl 30.0-37.0 N (test code = MCHC) RED CELL DISTRIBUTION WIDTH 11.6 % 11.5-14.5 N (test code = RDW) PLATELET COUNT (test code = 305 X10(3) 150-350 N PLT) MEAN PLATELET VOLUME (test code 10.6 fl 8.7-11.4 N = MPV) NEUTROPHIL % (test code = NT%) 53.9 % 36.0-66.0 N IMMATURE GRANULOCYTE % (test 0.5 % 0.0-2.0 N code = IG%) LYMPHOCYTE % (test code = LY%) 37.8 % 16.0-50.0 N MONOCYTE % (test code = MO%) 7.0 % 0.0-13.0 N EOSINOPHIL % (test code = EO%) 0.4 % 0.0-4.5 N BASOPHIL % (test code = BA%) 0.4 % 0.0-1.5 N NUCLEATED RBC % (test code = 0.0 % 0-0.2 N NRBC%) NEUTROPHIL # (test code = NT#) 4.95 X10(3) 1.70-7.70 N IMMATURE GRANULOCYTE # (test 0.05 X10(3)uL 0.00-0.03 H code = IG#) LYMPHOCYTE # (test code = LY#) 3.47 X10(3) 0.70-4.00 N MONOCYTE # (test code = MO#) 0.64 X10(3) 0.00-0.89 N EOSINOPHIL # (test code = EO#) 0.04 X10(3) 0.00-0.60 N BASOPHIL # (test code = BA#) 0.04 X10(3) 0.00-0.20 N NUCLEATED RBC # (test code = 0.00 K/mm3 0.0-0.1 N NRBC#) UR PORPHYRINS [id number] 10:50:00 Test Item Value Reference Range Interpretation Comments UR PORPHYRINS QUANT (test SENT TO REF LAB code = PORUQT) RZ=[id number] 08:47:00 Test Item Value Reference Range Interpretation Comments GLUBED (test code = 220 mg/dL 70-105 H Performe d by certified GLUBED) 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 [facility] BASIC METABOLIC [id number] 07:05:00 Test Item Value Reference Range Interpretation Comments SODIUM (test code = 138 mmol/L 136-145 N NA) POTASSIUM (test code = 3.5 mmol/L 3.5-5.1 N K) CHLORIDE (test code = 106 mmol/L 98-107 N CL) CARBON DIOXIDE (test 24 mmol/L 21-32 N code = CO2) GLUCOSE (test code = 221 mg/dL 70-100 H GLU) BLOOD UREA NITROGEN 11 mg/dL 7-18 N (test code = BUN) GLOMERULAR FILTRATION > 60.00 >=60 Report ing units: RATE (test code = GFR) mL/mi n/1.73m\\S\\2 (Modified MDRD formula)REFEREN CE RANGE: > or = 6 0 ml/min/1.73M2IF PATIENT IS -EVA N, MULTIPLY REPORT ED RESULT BY1.21. CREATININE (test code 0.90 mg/dL 0.67-1.17 = CREAT) CALCIUM (test code = 8.0 mg/dL 8.5-10.1 L CA) [id number] 07:05:00 Test Item Value Reference Range Interpretation Comments PHOSPHOROUS (test code = PHOS) 1.8 mg/dL 2.5-4.9 L CBC W/AUTO [id number] 06:11:00 Test Item Value Reference Range Interpretation Comments WHITE BLOOD CELL (test code = 7.5 X10(3) 4.5-11.0 N WBC) RED BLOOD CELL (test code = 3.83 X10(6) 4.3-5.9 L RBC) HEMOGLOBIN (test code = HGB) 11.9 g/dL 13.5-18.0 L HEMATOCRIT (test code = HCT) 34.0 % 42.0-52.0 L MEAN CELL VOLUME (test code = 88.8 fl 78-100 N MCV) MEAN CELL HGB (test code = MCH) 31.1 pg 26.0-34.0 N MEAN CELL HGB CONCETRATION 35.0 g/dl 30.0-37.0 N (test code = MCHC) RED CELL DISTRIBUTION WIDTH 11.9 % 11.5-14.5 N (test code = RDW) PLATELET COUNT (test code = 282 X10(3) 150-350 N PLT) MEAN PLATELET VOLUME (test code 9.9 fl 8.7-11.4 N = MPV) NEUTROPHIL % (test code = NT%) 66.1 % 36.0-66.0 H IMMATURE GRANULOCYTE % (test 0.4 % 0.0-2.0 N code = IG%) LYMPHOCYTE % (test code = LY%) 25.8 % 16-50 N MONOCYTE % (test code = MO%) 6.9 % 0.0-13.0 N EOSINOPHIL % (test code = EO%) 0.5 % 0.0-4.5 N BASOPHIL % (test code = BA%) 0.3 % 0.0-1.5 N NUCLEATED RBC % (test code = 0.0 % 0-0.2 N NRBC%) NEUTROPHIL # (test code = NT#) 5.0 X10(3) 1.7-7.7 N IMMATURE GRANULOCYTE # (test 0.03 X10(3)uL 0.00-0.03 N code = IG#) LYMPHOCYTE # (test code = LY#) 1.9 X10(3) 0.7-4.0 N MONOCYTE # (test code = MO#) 0.5 X10(3) 0.0-0.89 N EOSINOPHIL # (test code = EO#) 0.0 X10(3) 0.0-0.6 N BASOPHIL # (test code = BA#) 0.0 X10(3) 0.0-0.2 N NUCLEATED RBC # (test code = 0.00 K/mm3 0.0-0.1 N NRBC#) [id number] 20:43:00 Test Item Value Reference Range Interpretation Comments GLUBED (test code = 117 mg/dL 70-105 H Performe d by certified GLUBED) 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 [facility]2020-01-30 16:49:00 Test Item Value Reference Range Interpretation Comments GLUBED (test code = 163 mg/dL 70-105 H Performe d by certified GLUBED) 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 [facility]2020-01-30 11:36:00 Test Item Value Reference Range Interpretation Comments GLUBED (test code = 171 mg/dL 70-105 H Performe d by certified GLUBED) 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 [facility] [id number] 07:20:00 Test Item Value Reference Range Interpretation Comments GLUBED (test code = 198 mg/dL 70-105 H Performe d by certified GLUBED) 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 [facility] BASIC METABOLIC [id number] 07:20:00 Test Item Value Reference Range Interpretation Comments SODIUM (test code = 138 mmol/L 136-145 N NA) POTASSIUM (test code = 3.8 mmol/L 3.5-5.1 N K) CHLORIDE (test code = 104 mmol/L 98-107 N CL) CARBON DIOXIDE (test 26 mmol/L 21-32 N code = CO2) GLUCOSE (test code = 220 mg/dL 70-100 H GLU) BLOOD UREA NITROGEN 10 mg/dL 7-18 (test code = BUN) GLOMERULAR FILTRATION > 60.00 >=60 Report ing units: RATE (test code = GFR) mL/mi n/1.73m\\S\\2 (Modified MDRD formula)REFEREN CE RANGE: > or = 6 0 ml/min/1.73M2IF PATIENT IS -EVA N, MULTIPLY REPORT ED RESULT BY1.21. CREATININE (test code 0.70 mg/dL 0.67-1.17 = CREAT) CALCIUM (test code = 8.6 mg/dL 8.5-10.1 N CA) [id number] 07:20:00 Test Item Value Reference Range Interpretation Comments PHOSPHOROUS (test code = PHOS) 2.2 mg/dL 2.5-4.9 L CBC W/AUTO [id number] 06:35:00 Test Item Value Reference Range Interpretation Comments WHITE BLOOD CELL (test code = 7.2 X10(3) 4.5-11.0 N WBC) RED BLOOD CELL (test code = 4.06 X10(6) 4.3-5.9 L RBC) HEMOGLOBIN (test code = HGB) 12.5 g/dL 13.5-18.0 L HEMATOCRIT (test code = HCT) 36.6 % 42.0-52.0 L MEAN CELL VOLUME (test code = 90.1 fl 78-100 N MCV) MEAN CELL HGB (test code = MCH) 30.8 pg 26.0-34.0 N MEAN CELL HGB CONCETRATION 34.2 g/dl 30.0-37.0 N (test code = MCHC) RED CELL DISTRIBUTION WIDTH 11.8 % 11.5-14.5 N (test code = RDW) PLATELET COUNT (test code = 272 X10(3) 150-350 N PLT) MEAN PLATELET VOLUME (test code 9.9 fl 8.7-11.4 N = MPV) NEUTROPHIL % (test code = NT%) 75.2 % 36.0-66.0 H IMMATURE GRANULOCYTE % (test 0.4 % 0.0-2.0 N code = IG%) LYMPHOCYTE % (test code = LY%) 18.4 % 16-50 N MONOCYTE % (test code = MO%) 5.1 % 0.0-13.0 N EOSINOPHIL % (test code = EO%) 0.6 % 0.0-4.5 N BASOPHIL % (test code = BA%) 0.3 % 0.0-1.5 N NUCLEATED RBC % (test code = 0.0 % 0-0.2 N NRBC%) NEUTROPHIL # (test code = NT#) 5.4 X10(3) 1.7-7.7 N IMMATURE GRANULOCYTE # (test 0.03 X10(3)uL 0.00-0.03 N code = IG#) LYMPHOCYTE # (test code = LY#) 1.3 X10(3) 0.7-4.0 N MONOCYTE # (test code = MO#) 0.4 X10(3) 0.0-0.89 N EOSINOPHIL # (test code = EO#) 0.0 X10(3) 0.0-0.6 N BASOPHIL # (test code = BA#) 0.0 X10(3) 0.0-0.2 N NUCLEATED RBC # (test code = 0.00 K/mm3 0.0-0.1 N NRBC#) [id number] 21:16:00 Test Item Value Reference Range Interpretation Comments GLUBED (test code = 123 mg/dL 70-105 H Performe d by certified GLUBED) 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 [facility] [id number] 18:31:00 Test Item Value Reference Range Interpretation Comments GLUBED (test code = 171 mg/dL 70-105 H Performe d by certified GLUBED) 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 [facility] - CT ABD PELVIS [id number] 16:22:00 Name: RADHA CARPENTER [facility] : 1980 Age/S: 38 / M [address] [facility] Unit #: [id number] Loc: [place] [address] Phys: Josh Norwood Acct: [id number] Dis Date: Status: ADM IN PHONE #: [phone] Exam Date: 06/15/2019 1555 FAX #: [phone] Reason: ABD PAIN EXAMS: CPTCODE: [id number] CT ABD PELVIS W/CONT [id number] EXAMINATION: - CT ABD PELVIS W/CONT. LOCATION: H 42. HISTORY: Abdominal pain, gastroparesis, cholecystectomy, diabetes. COMPARISON: CT abdomen/pelvis 06/01/2019. TECHNIQUE: CT imaging was performed of abdomen and pelvis after intravenous administrationof 100 cc of Isovue-300. Oral contrast material was also administered. One or more the following dose reduction techniques were used: Automated exposure control, adjustment of mA and/or kV according to patient size, and use of iterative reconstruction technique. FINDINGS: Visualized lung bases demonstrate dependent changes, left greater than ri ght with tiny left effusion. Cholecystectomy. Liver, spleen, pancreas, adrenals and kidneys appear unremarkable. No hydronephrosis. Distended urinary bladder. The bowel loops appear normal in course and caliber. No bowel obstruction. Unremarkable appendix. Gastric stimulator device is noted overlying left anterior midabdomen. No abdominal or pelvic bulky lymphadenopathy is identified. No pneumoperitoneum or free fluid. Fairly extensive atherosclerotic vascular calcifications. Tiny fat-containing umbilical hernia. Calcification of vas deferens is also noted. Visualized osseous structures demonstrates moderate degenerative changes at L4-L5 with diffuse disc bulge. IMPRESSION: No acute findings within abdomen nor pelvis. Bibasilar dependent changes, left greater than right with tiny left pleural effusion. Fairly extensive atherosclerotic calcifications. PAGE 1 Signed Report (CONTINUED) Name: RADHA CARPENTER [facility] : 1980 Age/S: 38 / M [address] [facility] Unit #: [id number] Loc: [place] [address] Phys: Josh Norwood Acct: [id number] Dis Date: Status: ADM IN PHONE #: [phone] Exam Date: 06/15/2019 1558 FAX #: [phone] Reason: ABD PAIN EXAMS: CPT CODE: [id number] CT ABD PELVIS W/CONT 15918 <Continued> at 1622 Reported and signed by: VERITO MG M.D. CC: Galindo Chris MD Technologist:Anmol Hardy, RT (R) CT (R) CTDI: 10.14 DLP: 586.96 Trnscb Date/Time: 06/15/2019 (1621) [email or web address] Orig Print D/T: S: 06/15/2019 (3282) PAGE 2 Signed ReportUR CREATININE [id number] 14:23:00 Test Item Value Reference Range Interpretation Comments UR CREATININE RANDOM (test code = 37.0 mg/dL CREATU) [id number] 11:48:00 Test Item Value Reference Range Interpretation Comments GLUBED (test code = 171 mg/dL 70-105 H Performe d by certified GLUBED) 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 [facility] [id number] 06:29:00 Test Item Value Reference Range Interpretation Comments GLUBED (test code = 191 mg/dL 70-105 H Performe d by certified GLUBED) 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 [facility] - XR ABDOMEN 1V (KUB)2019-06-14 22:36:00 [facility] Name: RADHA CARPENTER Arron [address] [place] [address] Phys: Jamal DiamondJosh [place] [id number] : 1980 Age: 38 Sex: M Acct: [id number] Loc: [id number] A PHONE #: [phone] Exam Date: 06/14/2019 Status: ADM IN FAX #: [phone] Radiology No: Unit No: [id number] Reason: ABD PAIN EXAMS: CPT CODE: [id number] XR ABDOMEN 1V (KUB) 17184 Fluoro Time: DAP (Gy m2): Air Kerma (mGy): AP VIEWS OF THE ABDOMEN AND PELVIS LOCATION: R16 CLINICAL HISTORY: Abdominal pain. COMPARISON: Abdominal radiographs 04/28/2018. FINDINGS: A normal bowel gas pattern is seen throughout the abdomen. No bowel dilatation or free air is found. Left-sided spinal stimulator catheter is noted, unchanged. Cholecystectomy clips are redemonstrated. No acute bony abnormality is seen. The pelvis is intact. IMPRESSION: No acute findi ngs in the abdomen or pelvis. at 2236 Reported and signed by: MEAGAN GONZALES MD CC: Galindo Chris MD Technologist: Jh Johnson, RT (R); Denisha Gallegos RT (R) Transcribed Date/Time: 06/14/2019 (2235) [email or web address] Orig Print D/T: S: 06/14/2019 (6068) PAGE 1 Signed [id number] 20:44:00 Test Item Value Reference Range Interpretation Comments GLUBED (test code = 188 mg/dL 70-105 H Performe d by certified GLUBED) 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 [facility]2020-01-28 16:32:00 Test Item Value Reference Range Interpretation Comments GLUBED (test code = 180 mg/dL 70-105 H Performe d by certified GLUBED) 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 [facility]2020-01-28 11:37:00 Test Item Value Reference Range Interpretation Comments GLUBED (test code = 223 mg/dL 70-105 H Performe d by certified GLUBED) 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 [facility]2020-01-27 21:58:00 Test Item Value Reference Range Interpretation Comments GLUBED (test code = 135 mg/dL 70-105 H Performe d by certified GLUBED) 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 [facility]2020-01-27 19:17:00 Test Item Value Reference Range Interpretation Comments GLUBED (test code = 162 mg/dL 70-105 H Performe d by certified GLUBED) 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 [facility]2020-01-27 19:17:00 Test Item Value Reference Range Interpretation Comments GLUBED (test code = 213 mg/dL 70-105 H Performe d by certified GLUBED) 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 [facility] - XR CHEST 1 [id number] 18:19:00 [facility] [facility] Name: RADHA CARPENTER [address] [facility] Phys: Jin Fatima MD [place], [place] [address] : 1980 Age: 38 Sex: M Acct: [id number] Loc: MARY PHONE #: [phone] Exam Date: 06/13/2019 Status: REG ER FAX #: [phone] Radiology No: Unit No: [id number] Reason: pain EXAMS: CPT CODE: [id number] XR CHEST 1 V 43570 Fluoro Time: DAP (Gy m2): Air Kerma (mGy): - XR CHEST 1 V, 06/13/2019 5:18 PM ReasonFor Examination: pain Comparison: June 01, 2019 Location: R16 Findings LUNGS: No definite pulmonary edema or consolidation, although exam findings limited by low lung volumes PLEURA: No pleural effusions CARDIOMEDIASTINAL SILHOUETTE Unremarkable IMPRESSION: No plain film evidence of acute cardiopulmonary abnormality within the given limitations above at 1819 Reported and signed by: BURT OLIVIER M.D. CC: Galindo Chris MD Technologist: Denisha Gallegos, RT (R) Transcribed Date/Time: 06/13/2019 (1818) [email or web address] Orig Print D/T: S: 06/13/2019 (1821) PAGE 1 Signed ReportCOMPREHENSIVE METABOLIC PANEL 2019-06-13 18:01:00 Test Item Value Reference Range Interpretation Comments SODIUM (test code = NA) 136 mmol/L 136-145 N POTASSIUM (test code = 4.0 mmol/L 3.5-5.1 N K) CHLORIDE (test code = 103 mmol/L 98-107 N CL) CARBON DIOXIDE (test 27 mmol/L 21-32 N code = CO2) GLUCOSE (test code = 224 mg/dL 70-100 H GLU) BLOOD UREA NITROGEN 29 mg/dL 7-18 H (test code = BUN) GLOMERULAR FILTRATION > 60.00 >=60 Report ing units: RATE (test code = GFR) mL/mi n/1.73m\\S\\2 (Modified MDRD formula)REFEREN CE RANGE: > or = 6 0 ml/min/1.73M2IF PATIENT IS -EVA N, MULTIPLY REPORT ED RESULT BY1.21. CREATININE (test code = 1.00 mg/dL 0.67-1.17 N CREAT) TOTAL PROTEIN (test 8.1 g/dl 6.4-8.2 N code = PROT) ALBUMIN (test code = 4.3 g/dl 3.4-5.0 N ALB) CALCIUM (test code = 9.8 mg/dL 8.5-10.1 N CA) BILIRUBIN TOTAL (test 0.5 mg/dl 0.2-1.0 N code = BILT) SGOT/AST (test code = 26 U/L 15-37 N AST) SGPT/ALT (test code = 49 U/L 12-78 N ALT) ALKALINE PHOSPHATASE 66 U/L 50-136 N TOTAL (test code = ALKP) [id number] 18:01:00 Test Item Value Reference Range Interpretation Comments LIPASE (test code = LIP) 69 U/L 73-393 L CBC W/AUTO [id number] 17:46:00 Test Item Value Reference Range Interpretation Comments WHITE BLOOD CELL (test code = 9.1 X10(3) 4.5-11.0 N WBC) RED BLOOD CELL (test code = 4.41 X10(6) 4.3-5.9 N RBC) HEMOGLOBIN (test code = HGB) 13.6 g/dL 13.5-18.0 N HEMATOCRIT (test code = HCT) 40.1 % 42.0-52.0 L MEAN CELL VOLUME (test code = 90.9 fl 78-100 N MCV) MEAN CELL HGB (test code = MCH) 30.8 pg 26.0-34.0 N MEAN CELL HGB CONCETRATION 33.9 g/dl 30.0-37.0 N (test code = MCHC) RED CELL DISTRIBUTION WIDTH 11.9 % 11.5-14.5 N (test code = RDW) PLATELET COUNT (test code = 301 X10(3) 150-350 N PLT) MEAN PLATELET VOLUME (test code 9.9 fl 8.7-11.4 N = MPV) NEUTROPHIL % (test code = NT%) 61.3 % 36.0-66.0 N IMMATURE GRANULOCYTE % (test 0.2 % 0.0-2.0 N code = IG%) LYMPHOCYTE % (test code = LY%) 31.6 % 16-50 N MONOCYTE % (test code = MO%) 5.7 % 0.0-13.0 N EOSINOPHIL % (test code = EO%) 0.6 % 0.0-4.5 N BASOPHIL % (test code = BA%) 0.6 % 0.0-1.5 N NUCLEATED RBC % (test code = 0.0 % 0-0.2 N NRBC%) NEUTROPHIL # (test code = NT#) 5.6 X10(3) 1.7-7.7 N IMMATURE GRANULOCYTE # (test 0.02 X10(3)uL 0.00-0.03 N code = IG#) LYMPHOCYTE # (test code = LY#) 2.9 X10(3) 0.7-4.0 N MONOCYTE # (test code = MO#) 0.5 X10(3) 0.0-0.89 N EOSINOPHIL # (test code = EO#) 0.1 X10(3) 0.0-0.6 N BASOPHIL # (test code = BA#) 0.1 X10(3) 0.0-0.2 N NUCLEATED RBC # (test code = 0.00 K/mm3 0.0-0.1 N NRBC#) [id number] 16:38:00 Test Item Value Reference Range Interpretation Comments GLUBED (test code = 195 mg/dL 70-105 H Performe d by certified GLUBED) 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 [facility] [id number] 11:47:00 Test Item Value Reference Range Interpretation Comments GLUBED (test code = 254 mg/dL 70-105 H Performe d by certified GLUBED) 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 [facility] UA RFLX MICROSCOPIC [id number] 10:08:00 Test Item Value Reference Range Interpretation Comments UA COLOR (test code = COLU) Yellow YELLOW UA APPEARANCE (test code = CLOUDY CLEAR APPU) UA GLUCOSE DIPSTICK (test code 150 mg/dl NORMAL A = DGLUU) UA BILIRUBIN DIPSTICK (test NEGATIVE mg/dl NEGATIVE code = BILU) UA KETONE DIPSTICK (test code NEGATIVE mg/dl NEGATIVE = KETU) UA SPECIFIC GRAVITY (test code 1.020 1.001-1.035 N = SGU) UA BLOOD DIPSTICK (test code = NEGATIVE /UL NEGATIVE JACE) UA PH DIPSTICK (test code = 5.0 4.6-8.0 LINDA) UA PROTEIN DIPSTICK (test code NEGATIVE mg/dl NEGATIVE = PROU) UA UROBILINIOGEN DIPSTICK NORMAL mg/dl NORMAL (test code = URO) UA NITRITE DIPSTICK (test code NEGATIVE NEGATIVE = JOHN) UA LEUKOCYTE ESTERASE DIPSTICK 250 /UL NEGATIVE A (test code = LEUU) UA COMMENT (test code = COMU) CLN CATCH UA WBC (test code = WBCUR) 11-25 #/hpf 0-5 A UA RBC (test code = RBCU) 0-2 #/hpf 0-5 UA EPITHELIAL CELLS (test code 1+ /hpf NEG,FEW A = EPIU) UA BACTERIA (test code = BACU) 1+ /hpf NEGATIVE A UA HYALINE CAST (test code = 6-10 #/lpf 0-2 A HYALU) UA MUCUS (test code = MUCU) 3+ /hpf NEG,FEW A Indication for culture: Suprapubic PainURINE SOURCE: CLEAN CATCH [id number] 2019-06-03 07:51:00 Test Item Value Reference Range Interpretation Comments GLUBED (test code = GLUBED) 150 mg/dL 70-105 H [id number] 22:49:00 Test Item Value Reference Range Interpretation Comments GLUBED (test code = 214 mg/dL 70-105 H Performe d by certified GLUBED) 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 [facility] UA RFLX MICROSCOPIC [id number] 18:28:00 Test Item Value Reference Range Interpretation Comments UA COLOR (test code = COLU) Yellow YELLOW UA APPEARANCE (test code = CLEAR CLEAR APPU) UA GLUCOSE DIPSTICK (test code >=500 mg/dl NORMAL A = DGLUU) UA BILIRUBIN DIPSTICK (test NEGATIVE mg/dl NEGATIVE code = BILU) UA KETONE DIPSTICK (test code NEGATIVE mg/dl NEGATIVE = KETU) UA SPECIFIC GRAVITY (test code 1.027 1.001-1.035 N = SGU) UA BLOOD DIPSTICK (test code = NEGATIVE /UL NEGATIVE JACE) UA PH DIPSTICK (test code = 5.0 4.6-8.0 LINDA) UA PROTEIN DIPSTICK (test code NEGATIVE mg/dl NEGATIVE = PROU) UA UROBILINIOGEN DIPSTICK NORMAL mg/dl NORMAL (test code = URO) UA NITRITE DIPSTICK (test code NEGATIVE NEGATIVE = JOHN) UA LEUKOCYTE ESTERASE DIPSTICK NEGATIVE /UL NEGATIVE (test code = LEUU) UA COMMENT (test code = COMU) STRAIGHT CATH UA WBC (test code = WBCUR) 3-5 #/hpf 0-5 A UA RBC (test code = RBCU) 0-2 #/hpf 0-5 Indication for culture: Dysuria/FrequencyURINE SOURCE: STRAIGHT CATHCOMMENT: PER DR. KELSEY [id number] 16:35:00 Test Item Value Reference Range Interpretation Comments GLUBED (test code = 143 mg/dL 70-105 H Performe d by certified GLUBED) 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 [facility] [id number] 14:55:00 Test Item Value Reference Range Interpretation Comments GLUBED (test code = 204 mg/dL 70-105 H Performe d by certified GLUBED) 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 [facility] [id number] 10:20:00 Test Item Value Reference Range Interpretation Comments GLUBED (test code = 159 mg/dL 70-105 H Performe d by certified GLUBED) 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 [facility] [id number] 06:47:00 Test Item Value Reference Range Interpretation Comments GLYCOSYLATED HEMOGLOBIN (HA1C) 12.2 % 4.2-6.3 H (test code = GLYHGB) ESTIMATED AVERAGE GLUCOSE (test 303 MG/DL <126 code = EAG) COMPREHENSIVE METABOLIC [id number] 06:35:00 Test Item Value Reference Range Interpretation Comments SODIUM (test code = NA) 142 mmol/L 136-145 N POTASSIUM (test code = 3.8 mmol/L 3.5-5.1 N K) CHLORIDE (test code = 108 mmol/L 98-107 H CL) CARBON DIOXIDE (test 26 mmol/L 21-32 N code = CO2) GLUCOSE (test code = 184 mg/dL 70-100 H GLU) BLOOD UREA NITROGEN 34 mg/dL 7-18 H (test code = BUN) GLOMERULAR FILTRATION > 60.00 >=60 Report ing units: RATE (test code = GFR) mL/mi n/1.73m\\S\\2 (Modified MDRD formula)REFEREN CE RANGE: > or = 6 0 ml/min/1.73M2IF PATIENT IS -EVA N, MULTIPLY REPORT ED RESULT BY1.21. CREATININE (test code = 1.00 mg/dL 0.67-1.17 CREAT) TOTAL PROTEIN (test 6.8 g/dl 6.4-8.2 N code = PROT) ALBUMIN (test code = 3.6 g/dl 3.4-5.0 N ALB) CALCIUM (test code = 8.8 mg/dL 8.5-10.1 N CA) BILIRUBIN TOTAL (test 0.6 mg/dl 0.2-1.0 N code = BILT) SGOT/AST (test code = 18 U/L 15-37 N AST) SGPT/ALT (test code = 27 U/L 12-78 N ALT) ALKALINE PHOSPHATASE 53 U/L 50-136 N TOTAL (test code = ALKP) LIPID PROFILE (CORONARY RISK)2019-06-02 06:35:00 Test Item Value Reference Range Interpretation Comments TRIGLYCERIDES (test code 241 mg/dL 30-150 H = TRIG) CHOLESTEROL (test code = 175 mg/dL 0-200 N CHOL) HDL CHOLESTEROL (test 46 mg/dL 40-59 N code = HDL) NON-HDL CHOLESTEROL (test 129 mg/dl <130 code = NHDL) LIPOPROTEIN LDL BOBO (test 81 mg/dl <100 code = LDLC) LDL/HDL (test code = 1.8 Ratio L DL/HDL RATIO LDL/HDL) RISK ---- 3.22 Average 5.03 Twi ce average 6.14 Thr ee times average [id number] 06:35:00 Test Item Value Reference Range Interpretation Comments LIPASE (test code = LIP) 51 U/L 73-393 L CBC W/AUTO [id number] 06:10:00 Test Item Value Reference Range Interpretation Comments WHITE BLOOD CELL (test code = 6.8 X10(3) 4.5-11.0 N WBC) RED BLOOD CELL (test code = 4.08 X10(6) 4.3-5.9 L RBC) HEMOGLOBIN (test code = HGB) 12.6 g/dL 13.5-18.0 L HEMATOCRIT (test code = HCT) 37.5 % 42.0-52.0 L MEAN CELL VOLUME (test code = 91.9 fl 78-100 N MCV) MEAN CELL HGB (test code = MCH) 30.9 pg 26.0-34.0 N MEAN CELL HGB CONCETRATION 33.6 g/dl 30.0-37.0 N (test code = MCHC) RED CELL DISTRIBUTION WIDTH 12.3 % 11.5-14.5 N (test code = RDW) PLATELET COUNT (test code = 266 X10(3) 150-350 N PLT) MEAN PLATELET VOLUME (test code 10.2 fl 8.7-11.4 N = MPV) NEUTROPHIL % (test code = NT%) 46.0 % 36.0-66.0 N IMMATURE GRANULOCYTE % (test 0.3 % 0.0-2.0 N code = IG%) LYMPHOCYTE % (test code = LY%) 45.0 % 16-50 N MONOCYTE % (test code = MO%) 6.8 % 0.0-13.0 N EOSINOPHIL % (test code = EO%) 1.6 % 0.0-4.5 N BASOPHIL % (test code = BA%) 0.3 % 0.0-1.5 N NUCLEATED RBC % (test code = 0.0 % 0-0.2 N NRBC%) NEUTROPHIL # (test code = NT#) 3.1 X10(3) 1.7-7.7 N IMMATURE GRANULOCYTE # (test 0.02 X10(3)uL 0.00-0.03 N code = IG#) LYMPHOCYTE # (test code = LY#) 3.0 X10(3) 0.7-4.0 N MONOCYTE # (test code = MO#) 0.5 X10(3) 0.0-0.89 N EOSINOPHIL # (test code = EO#) 0.1 X10(3) 0.0-0.6 N BASOPHIL # (test code = BA#) 0.0 X10(3) 0.0-0.2 N NUCLEATED RBC # (test code = 0.00 K/mm3 0.0-0.1 N NRBC#) [id number] 00:01:00 Test Item Value Reference Range Interpretation Comments GLUBED (test code = 191 mg/dL 70-105 H Performe d by certified GLUBED) 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 COMPARISON: May 20, 2019 TECHNIQUE: Sequential axial images of abdomen and pelvis without contrast with sagittal and coronal reconstructions. This CT exam was performed using one or more of the following dose reduction techniques: Automated exposure control; Adjustment of the mA and/or kV according to patient size; Use of iterative reconstruction technique. FINDINGS: There is limited evaluation of the solid and hollow visceral organs withoutthe use of IV contrast. Dependent atelectasis is seen bilaterally. There is more groundglass nodular opacities at the left lung base and early infiltrate is not excluded. Heart size is normal with trace pericardial effusion. Patient is status post cholecystectomy. The liver, spleen, pancreas and adrenal glands are unremarkable. Both kidneys appear symmetric in size without hydronephrosis or obstructive nephrolithiasis. Bowel loops areunopacified and decompressed. Small bowel loops are normal in caliber. The stomach appears decompressed which accentuates wall thickness. There appears to be stimulator leads extending to the distal anterior gastric wall. There appear to be several thickened air-filled small bowel loops in the left upper quadrant. The appendix is unremarkable. The distal and sigmoid colon are fully decompressed. There is no free air, free fluid or definite pneumatosis. Scattered nonspecific lymph nodes are seen within the mesentery. Pelvic sidewall is symmetric. The urinary bladder is distended without calculi. Urinary bladder wall does appear to be mildly thickened. The abdominal aorta is normal in caliber with mild atherosclerosis. 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 There are vacuum discs at the L4-5 and L5-S1 levels, with mild posterior disc protrusion at the L3-4, L4-5 and to a lesser extent L5-S1 levels.. No acute bony abnormality seen. IMPRESSION: PAGE 1 Signed Report (CONTINUED) Name: RADHA CARPENTER [facility] : 1980 Age/S: 38 / M [address] [place] [address] Unit #: [id number] Loc: [place] [address] Phys: Edson Potts Jr, MD Acct: [id number] Dis Date: Status: ADM IN PHONE #: [phone] Exam Date: 06/01/2019 1646 FAX #: [phone] Reason: ABD APIN EXAMS: CPT CODE: [id number] CT ABD PELVIS W/O CONT 56672 <Continued> No evidence of intestinal or urinary obstruction. Gastric mucosa appears thickened which may be in part related to incomplete distention. There are stimulator leads which extend to the anterior aspect of the stomach suggesting gastroparesis. Mildly thickened air-filled small bowel loops in the left upper quadrant. This appearance might be in part related to peristalsis. However, focal enteritis is not excluded. Correlate with symptomatology. Urinary bladder is partially distended. The bladder wall, however, appears thickened.Superimposed inflammatory process such as cystitis is not excluded. Correlate with urinalysis. Descending and sigmoid colon are decompressed which accentuates wall thickness. No definite inflammatory process associated with the colon. Other nonemergent findings described above. at 1717 Reported and signed by: Lili Santos MD CC: Galindo Chris MD Technologist:Anmol Hardy, RT (R) CT (R) CTDI: 10.33 DLP: 624.19 Trnscb Date/Time: 06/01/2019 (1717) [id number] Orig Print D/T: S: 06/01/2019 (1720) PAGE 2 Signed Report- XR CHEST 1 V 2019-06-01 14:37:00 [facility] Name: RADHA CARPENTER [address] [place] [address] Phys: Edson Potts Jr, MD [place] [address] : 1980 Age: 38 Sex: M Acct: [id number] Loc: MARY PHONE #: Exam Date: 06/01/2019 Status: REG ER FAX #: [phone] Radiology No: Unit No: [id number] Reason: chest pain EXAMS: CPT CODE: [id number] XR CHEST 1 V 01525 Fluoro Time: DAP (Gy m2): Air Kerma (mGy): Location code: R 16 Chest 1 view Indication: chest pain. Comparison: None Findings: The heart and mediastinum are not remarkable. Costophrenic angles are clear. Lungs are clear. Bone is unremarkable for age. Impression: 1. No radiographic evidence of acute cardiopulmonary disease. at 7262 Reported and signed by: RAMAN BROWN M.D. CC: Galindo Chris MD Technologist: Anton Martinez RT(R) Transcribed Date/Time: 06/01/2019 (6286) [id number] Orig Print D/T: S: 06/01/2019 (2721) PAGE 1 Signed ReportPROTHROMBIN TIME 2019-06-01 14:25:00 Test Item Value Reference Interpretation Comments Range PROTHROMBIN TIME 9.8 SECONDS 8.7-12.1 N THERAPEUTIC LEVEL: 1.5 TO PATIENT (test code 1.9 TIMES NORMAL RANGE = PTP) INTERNATIONAL 0.9 Recommended Th erapeutic NORMAL RATIO (test PT Ratios For Oral code = INR) AnticoagulantTh erapy. CONDITION INT'L N ORMALIZED PT RATIO------- --- Prophylaxis of venous thrombosis 2.0 - 3.0in [facility] or surgical[facility] ents, treatment of venousthrombosi s, prevention of e mbolism. Prevention of r ecurrent embolism, 2.5 - 3.5or treatment of patients with mechanicalprost hetic heart valves. THROMBOPLASTIN TIME [id number] 14:25:00 Test Item Value Reference Range Interpretation Comments THROMBOPLASTIN TIME PARTIAL 24.0 seconds 22.8-34.4 N (test code = PTT) BASIC METABOLIC [id number] 14:21:00 Test Item Value Reference Range Interpretation Comments SODIUM (test code = 135 mmol/L 136-145 L NA) POTASSIUM (test code = 4.2 mmol/L 3.5-5.1 N K) CHLORIDE (test code = 99 mmol/L 98-107 N CL) CARBON DIOXIDE (test 26 mmol/L 21-32 N code = CO2) GLUCOSE (test code = 363 mg/dL 70-100 H GLU) BLOOD UREA NITROGEN 30 mg/dL 7-18 H (test code = BUN) GLOMERULAR FILTRATION > 60.00 >=60 Report ing units: RATE (test code = GFR) mL/mi n/1.73m\\S\\2 (Modified MDRD formula)REFEREN CE RANGE: > or = 6 0 ml/min/1.73M2IF PATIENT IS -EVA N, MULTIPLY REPORT ED RESULT BY06.07. CREATININE (test code 1.30 mg/dL 0.67-1.17 H = CREAT) CALCIUM (test code = 10.2 mg/dL 8.5-10.1 H CA) [id number] 14:21:00 Test Item Value Reference Range Interpretation Comments LIPASE (test code = LIP) 68 U/L 73-393 L [id number] 14:21:00 Test Item Value Reference Range Interpretation Comments TROPONIN-I (test <0.015 ng/ml 0.00-0.045 N GUIDELINES: 0.08 - 0.09 code = TROPI) Indeterminate0 .10 Risk Stratifica tion Limit: Suggest sequential te sting0.60 - 1.50 AMI cut off: Myocardial Inju ry by WHO criteria CBC W/AUTO [id number] 14:11:00 Test Item Value Reference Range Interpretation Comments WHITE BLOOD CELL (test code = 9.0 X10(3) 4.5-11.0 N WBC) RED BLOOD CELL (test code = 4.85 X10(6) 4.3-5.9 N RBC) HEMOGLOBIN (test code = HGB) 14.9 g/dL 13.5-18.0 N HEMATOCRIT (test code = HCT) 44.0 % 42.0-52.0 N MEAN CELL VOLUME (test code = 90.7 fl 78-100 N MCV) MEAN CELL HGB (test code = MCH) 30.7 pg 26.0-34.0 N MEAN CELL HGB CONCETRATION 33.9 g/dl 30.0-37.0 N (test code = MCHC) RED CELL DISTRIBUTION WIDTH 12.0 % 11.5-14.5 N (test code = RDW) PLATELET COUNT (test code = 320 X10(3) 150-350 N PLT) MEAN PLATELET VOLUME (test code 10.3 fl 8.7-11.4 N = MPV) NEUTROPHIL % (test code = NT%) 57.7 % 36.0-66.0 N IMMATURE GRANULOCYTE % (test 0.4 % 0.0-2.0 N code = IG%) LYMPHOCYTE % (test code = LY%) 32.7 % 16-50 N MONOCYTE % (test code = MO%) 7.8 % 0.0-13.0 N EOSINOPHIL % (test code = EO%) 1.1 % 0.0-4.5 N BASOPHIL % (test code = BA%) 0.3 % 0.0-1.5 N NUCLEATED RBC % (test code = 0.0 % 0-0.2 N NRBC%) NEUTROPHIL # (test code = NT#) 5.2 X10(3) 1.7-7.7 N IMMATURE GRANULOCYTE # (test 0.04 X10(3)uL 0.00-0.03 H code = IG#) LYMPHOCYTE # (test code = LY#) 3.0 X10(3) 0.7-4.0 N MONOCYTE # (test code = MO#) 0.7 X10(3) 0.0-0.89 N EOSINOPHIL # (test code = EO#) 0.1 X10(3) 0.0-0.6 N BASOPHIL # (test code = BA#) 0.0 X10(3) 0.0-0.2 N NUCLEATED RBC # (test code = 0.00 K/mm3 0.0-0.1 N NRBC#) [id number] 09:36:00 Test Item Value Reference Range Interpretation Comments GLUBED (test code = 314 mg/dL 70-105 H Performe d by certified GLUBED) 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 [facility] [id number] 09:36:00 Test Item Value Reference Range Interpretation Comments GLUBED (test code = 288 mg/dL 70-105 H Performe d by certified GLUBED) 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 [facility] BASIC METABOLIC [id number] 06:10:00 Test Item Value Reference Range Interpretation Comments SODIUM (test code = 134 mmol/L 136-145 L NA) POTASSIUM (test code = 4.1 mmol/L 3.5-5.1 N K) CHLORIDE (test code = 100 mmol/L 98-107 N CL) CARBON DIOXIDE (test 24 mmol/L 21-32 N code = CO2) GLUCOSE (test code = 318 mg/dL 70-100 H GLU) BLOOD UREA NITROGEN 24 mg/dL 7-18 H (test code = BUN) GLOMERULAR FILTRATION > 60.00 >=60 Report ing units: RATE (test code = GFR) mL/mi n/1.73m\\S\\2 (Modified MDRD formula)REFEREN CE RANGE: > or = 6 0 ml/min/1.73M2IF PATIENT IS -EVA N, MULTIPLY REPORT ED RESULT BY1.21. CREATININE (test code 1.10 mg/dL 0.67-1.17 N = CREAT) CALCIUM (test code = 9.4 mg/dL 8.5-10.1 N CA) LIVER [id number] 06:10:00 Test Item Value Reference Range Interpretation Comments TOTAL PROTEIN (test code = PROT) 8.0 g/dl 6.4-8.2 N ALBUMIN (test code = ALB) 4.5 g/dl 3.4-5.0 N BILIRUBIN TOTAL (test code = BILT) 0.7 mg/dl 0.2-1.0 N BILIRUBIN DIRECT (test code = 0.17 mg/dl 0.0-0.4 N BILD) SGOT/AST (test code = AST) 15 U/L 15-37 N SGPT/ALT (test code = ALT) 30 U/L 12-78 N ALKALINE PHOSPHATASE TOTAL (test 68 U/L 50-136 N code = ALKP) [id number] 06:10:00 Test Item Value Reference Range Interpretation Comments TRIGLYCERIDES (test code = TRIG) 225 mg/dL 30-150 H [id number] 06:10:00 Test Item Value Reference Range Interpretation Comments LIPASE (test code = LIP) 56 U/L 73-393 L BETA [id number] 06:10:00 Test Item Value Reference Range Interpretation Comments BETA HYDROBUTYRATE (test code = 2.70 mmol/L 0.00-0.28 H BETHYD) BASIC METABOLIC [id number] 06:03:00 Test Item Value Reference Range Interpretation Comments SODIUM (test code = NA) 134 mmol/L 136-145 L POTASSIUM (test code = K) 4.1 mmol/L 3.5-5.1 N CHLORIDE (test code = CL) 100 mmol/L 98-107 N CARBON DIOXIDE (test code = CO2) 24 mmol/L 21-32 N GLUCOSE (test code = GLU) 318 mg/dL 70-100 H BLOOD UREA NITROGEN (test code = 24 mg/dL 7-18 H BUN) GLOMERULAR FILTRATION RATE (test >=60 code = GFR) CREATININE (test code = CREAT) mg/dL 0.67-1.17 CALCIUM (test code = CA) 9.4 mg/dL 8.5-10.1 N LIVER [id number] 06:03:00 Test Item Value Reference Range Interpretation Comments TOTAL PROTEIN (test code = PROT) g/dl 6.4-8.2 ALBUMIN (test code = ALB) 4.5 g/dl 3.4-5.0 N BILIRUBIN TOTAL (test code = BILT) mg/dl 0.2-1.0 BILIRUBIN DIRECT (test code = BILD) mg/dl 0.0-0.4 SGOT/AST (test code = AST) U/L 15-37 SGPT/ALT (test code = ALT) U/L 12-78 ALKALINE PHOSPHATASE TOTAL (test U/L 50-136 code = ALKP) [id number] 06:03:00 Test Item Value Reference Range Interpretation Comments TRIGLYCERIDES (test code = TRIG) mg/dL 30-150 [id number] 06:03:00 Test Item Value Reference Range Interpretation Comments LIPASE (test code = LIP) U/L 73-393 BETA [id number] 06:03:00 Test Item Value Reference Range Interpretation Comments BETA HYDROBUTYRATE (test code = mmol/L 0.00-0.28 BETHYD) CBC W/AUTO [id number] 05:59:00 Test Item Value Reference Range Interpretation Comments WHITE BLOOD CELL (test code = 9.5 X10(3) 4.5-11.0 N WBC) RED BLOOD CELL (test code = 4.46 X10(6) 4.3-5.9 N RBC) HEMOGLOBIN (test code = HGB) 13.3 g/dL 13.5-18.0 L HEMATOCRIT (test code = HCT) 41.1 % 42.0-52.0 L MEAN CELL VOLUME (test code = 92.2 fl 78-100 N MCV) MEAN CELL HGB (test code = MCH) 29.8 pg 26.0-34.0 N MEAN CELL HGB CONCETRATION 32.4 g/dl 30.0-37.0 N (test code = MCHC) RED CELL DISTRIBUTION WIDTH 12.1 % 11.5-14.5 N (test code = RDW) PLATELET COUNT (test code = 360 X10(3) 150-350 H PLT) MEAN PLATELET VOLUME (test code 10.0 fl 8.7-11.4 N = MPV) NEUTROPHIL % (test code = NT%) 64.2 % 36.0-66.0 N IMMATURE GRANULOCYTE % (test 0.6 % 0.0-2.0 N code = IG%) LYMPHOCYTE % (test code = LY%) 27.5 % 16-50 N MONOCYTE % (test code = MO%) 7.1 % 0.0-13.0 N EOSINOPHIL % (test code = EO%) 0.4 % 0.0-4.5 N BASOPHIL % (test code = BA%) 0.2 % 0.0-1.5 N NUCLEATED RBC % (test code = 0.0 % 0-0.2 N NRBC%) NEUTROPHIL # (test code = NT#) 6.1 X10(3) 1.7-7.7 N IMMATURE GRANULOCYTE # (test 0.06 X10(3)uL 0.00-0.03 H code = IG#) LYMPHOCYTE # (test code = LY#) 2.6 X10(3) 0.7-4.0 N MONOCYTE # (test code = MO#) 0.7 X10(3) 0.0-0.89 N EOSINOPHIL # (test code = EO#) 0.0 X10(3) 0.0-0.6 N BASOPHIL # (test code = BA#) 0.0 X10(3) 0.0-0.2 N NUCLEATED RBC # (test code = 0.00 K/mm3 0.0-0.1 N NRBC#) CBC W/AUTO [id number] 06:20:00 Test Item Value Reference Range Interpretation Comments WHITE BLOOD CELL (test code = 9.2 X10(3) 4.5-11.0 N WBC) RED BLOOD CELL (test code = 4.92 X10(6) 4.3-5.9 N RBC) HEMOGLOBIN (test code = HGB) 14.9 g/dL 13.5-18.0 N HEMATOCRIT (test code = HCT) 43.3 % 42.0-52.0 N MEAN CELL VOLUME (test code = 88.0 fl 78-100 N MCV) MEAN CELL HGB (test code = MCH) 30.3 pg 26.0-34.0 N MEAN CELL HGB CONCETRATION 34.4 g/dl 30.0-37.0 N (test code = MCHC) RED CELL DISTRIBUTION WIDTH 12.2 % 11.5-14.5 N (test code = RDW) PLATELET COUNT (test code = 421 X10(3) 150-350 H PLT) MEAN PLATELET VOLUME (test code 12.2 fl 8.7-11.4 H = MPV) NEUTROPHIL % (test code = NT%) 69.3 % 36.0-66.0 H IMMATURE GRANULOCYTE % (test 0.8 % 0.0-2.0 N code = IG%) LYMPHOCYTE % (test code = LY%) 23.3 % 16-50 N MONOCYTE % (test code = MO%) 5.5 % 0.0-13.0 N EOSINOPHIL % (test code = EO%) 0.7 % 0.0-4.5 N BASOPHIL % (test code = BA%) 0.4 % 0.0-1.5 N NUCLEATED RBC % (test code = 0.0 % 0-0.2 N NRBC%) NEUTROPHIL # (test code = NT#) 6.4 X10(3) 1.7-7.7 N IMMATURE GRANULOCYTE # (test 0.07 X10(3)uL 0.00-0.03 H code = IG#) LYMPHOCYTE # (test code = LY#) 2.2 X10(3) 0.7-4.0 N MONOCYTE # (test code = MO#) 0.5 X10(3) 0.0-0.89 N EOSINOPHIL # (test code = EO#) 0.1 X10(3) 0.0-0.6 N BASOPHIL # (test code = BA#) 0.0 X10(3) 0.0-0.2 N NUCLEATED RBC # (test code = 0.00 K/mm3 0.0-0.1 N NRBC#) ANISOCYTOSIS (test code = 1+ NOT PRESENT ANISO) PLATELET ESTIMATE (test code = INCREASED ADEQUATE PLTEST) [id number] 04:38:00 Test Item Value Reference Range Interpretation Comments GLUBED (test code = 379 mg/dL 70-105 H Performe d by certified GLUBED) 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 [facility] - CT ABD PELVIS W/O [id number] 00:16:00 Name: RADHA CARPENTER [facility] : 1980 Age/S: 38 / M [address] Unit #: [id number] Loc: [place] [address] Phys: Emir Marx DO Acct: [id number] Dis Date: Status: REG ER PHONE #: [phone] Exam Date: 05/20/2019 2356 FAX #: [phone] Reason: PAIN EXAMS: CPTCODE: [id number] CT ABD PELVIS W/O CONT 03435 LOCATION: H43 EXAM: - CT ABD PELVIS W/O CONT HISTORY: PAIN TECHNIQUE: Axial imaging of the abdomen and pelvis from the lung base to the pubic symphysis without admi nistration of intravenous contrast. Sagittal and coronal reconstructions. CT scan performed using appropriate/available dose optimization/reduction techniques. DLP 623.7 mGy/cm COMPARISON: None. FINDINGS: Lung base:The visualized lung base is clear. The heart size is normal. No pericardial or pleural effusion is present. Assessment of abdominal viscera limited in the absence of intravenous contrast. Liver/spleen: Unremarkable. Biliary system: The gallbladder is surgically absent. No biliary duct dilatation. Pancreas: Unremarkable. Adrenal glands: Normal. Kidneys: Unremarkable. Vascular: Mild atherosclerosis normal caliber abdominal aorta. Lymph nodes: No abdominal lymphadenopathy.Pelvic structures: The urinary bladder is unremarkably distended. No pelvic lymphadenopathy orfree fluid. Prostate gland is normal in size. Gastrointestinal tract: Scatteredcolonic diverticula. No evidence of acute diverticulitis. No abnormal bowel dilatation. Normal caliber appendix is identified. No focal fluid collections, ascites or PAGE 1 Signed Report (CONTINUED) Name: RADHA CARPENTER [facility] : 1980 Age/S: 38 / M [address] [facility] Unit #: [id number] Loc: [place] [address] Phys: Francisco J,Emir DO Acct: [id number] Dis Date: Status: REG ER PHONE #: [phone] Exam Date: 05/20/2019 2356 FAX #: [phone] Reason: PAINEXAMS: CPT CODE: [id number] CT ABD PELVIS W/O CONT 72672 <Continued> evidence of pneumoperitoneum. Bones and soft tissues: The osseous structures are intact. Appliance overliesthe left abdominal wall with lead tips anterior to the distal gastric body. IMPRESSION: Essentially unremarkable noncontrast CT examination of the abdomen and pelvis without evidence of acute intra-abdominal pathology. at 0016 Reported and signed by: ISSA MG MD. CC: [facility] Francisco J DO; Galindo Chris MD Technologist:Raman Aburto RTCTDI: 10.59 DLP: 623.67 Trntnb Date/Time: 05/21/2019 (0016) t.SDR.[email or web address] Orig Print D/T: S: 05/21/2019 (0019) PAGE 2 Signed ReportUA RFLX MICROSCOPIC [id number] 00:07:00 Test Item Value Reference Range Interpretation Comments UA COLOR (test code = COLU) Straw YELLOW UA APPEARANCE (test code = CLEAR CLEAR APPU) UA GLUCOSE DIPSTICK (test code >=500 mg/dl NORMAL A = DGLUU) UA BILIRUBIN DIPSTICK (test NEGATIVE mg/dl NEGATIVE code = BILU) UA KETONE DIPSTICK (test code 20 mg/dl NEGATIVE A = KETU) UA SPECIFIC GRAVITY (test code 1.025 1.001-1.035 N = SGU) UA BLOOD DIPSTICK (test code = NEGATIVE /UL NEGATIVE JACE) UA PH DIPSTICK (test code = 6.0 4.6-8.0 LINDA) UA PROTEIN DIPSTICK (test code NEGATIVE mg/dl NEGATIVE = PROU) UA UROBILINIOGEN DIPSTICK NORMAL mg/dl NORMAL (test code = URO) UA NITRITE DIPSTICK (test code NEGATIVE NEGATIVE = JOHN) UA LEUKOCYTE ESTERASE DIPSTICK NEGATIVE /UL NEGATIVE (test code = LEUU) UA COMMENT (test code = COMU) CLN CATCH UA WBC (test code = WBCUR) 0-2 #/hpf 0-5 UA RBC (test code = RBCU) 3-5 #/hpf 0-5 UA EPITHELIAL CELLS (test code FEW /hpf NEG,FEW = EPIU) UA SPERM (test code = SPERMU) 1+ /hpf NEGATIVE A Indication for culture: Dysuria/FrequencyURINE SOURCE: CLEAN CATCH URINE BASIC METABOLIC [id number] 23:38:00 Test Item Value Reference Range Interpretation Comments SODIUM (test code = 133 mmol/L 136-145 L NA) POTASSIUM (test code = 4.0 mmol/L 3.5-5.1 N K) CHLORIDE (test code = 98 mmol/L 98-107 N CL) CARBON DIOXIDE (test 26 mmol/L 21-32 N code = CO2) GLUCOSE (test code = 372 mg/dL 70-100 H GLU) BLOOD UREA NITROGEN 26 mg/dL 7-18 H (test code = BUN) GLOMERULAR FILTRATION > 60.00 >=60 Report ing units: RATE (test code = GFR) mL/mi n/1.73m\\S\\2 (Modified MDRD formula)REFEREN CE RANGE: > or = 6 0 ml/min/1.73M2IF PATIENT IS -EVA N, MULTIPLY REPORT ED RESULT BY1.21. CREATININE (test code 1.10 mg/dL 0.67-1.17 N = CREAT) CALCIUM (test code = 10.0 mg/dL 8.5-10.1 N CA) RECOLLECTION HEMOLYZEDLIVER [id number] 23:38:00 Test Item Value Reference Range Interpretation Comments TOTAL PROTEIN (test code = PROT) 7.7 g/dl 6.4-8.2 N ALBUMIN (test code = ALB) 4.2 g/dl 3.4-5.0 N BILIRUBIN TOTAL (test code = BILT) 0.7 mg/dl 0.2-1.0 N BILIRUBIN DIRECT (test code = 0.19 mg/dl 0.0-0.4 N BILD) SGOT/AST (test code = AST) 16 U/L 15-37 N SGPT/ALT (test code = ALT) 32 U/L 12-78 N ALKALINE PHOSPHATASE TOTAL (test 66 U/L 50-136 N code = ALKP) RECOLLECTION [id number] 23:38:00 Test Item Value Reference Range Interpretation Comments LIPASE (test code = LIP) 42 U/L 73-393 L RECOLLECTION HEMOLYZEDCBC W/AUTO [id number] 23:03:00 Test Item Value Reference Range Interpretation Comments WHITE BLOOD CELL (test code = 9.2 X10(3) 4.5-11.0 N WBC) RED BLOOD CELL (test code = RBC) 4.92 X10(6) 4.3-5.9 N HEMOGLOBIN (test code = HGB) 14.9 g/dL 13.5-18.0 N HEMATOCRIT (test code = HCT) 43.3 % 42.0-52.0 N MEAN CELL VOLUME (test code = 88.0 fl 78-100 N MCV) MEAN CELL HGB (test code = MCH) 30.3 pg 26.0-34.0 N MEAN CELL HGB CONCETRATION (test 34.4 g/dl 30.0-37.0 N code = MCHC) RED CELL DISTRIBUTION WIDTH (test 12.2 % 11.5-14.5 N code = RDW) PLATELET COUNT (test code = PLT) 421 X10(3) 150-350 H MEAN PLATELET VOLUME (test code = 12.2 fl 8.7-11.4 H MPV) NUCLEATED RBC % (test code = 0.0 % 0-0.2 N NRBC%) NUCLEATED RBC # (test code = 0.00 K/mm3 0.0-0.1 N NRBC#)
[2021-01-23] MEDS ORDERED: ONDANSETRON 4 MG/2 ML VIAL ONE ×4 (02:26→16:25)
[2021-01-23] MEDS ORDERED: MORPHINE 4 MG/ML SYR ONE ×2 (02:26→04:43)
[2021-01-23] MEDS ORDERED: NA CHLORIDE 0.9% 1,000 ML ONE ×3 (02:26→16:25)
[2021-01-23 02:45] LABS: Absolute Lymphocytes (CBC) 1.9 K/uL (0.7-4.9); Basophils % 0.6 % (0-1.3); Hematocrit 35.3 % (39.6-49.0); Lymphocytes % 15.5 % (15.3-44.8); MPV 8.3 fL (7.6-11.3); RBC Red Blood Cell Count 3.85 M/uL (4.33-5.43)
[2021-01-23] MEDS ORDERED: ACETAMINOPHEN 500 MG TAB ONE (02:47)
[2021-01-23 03:03] LABS: Albumin 3.4 g/dL (3.4-5.0); Bilirubin Direct 0.1 mg/dL (0-0.2); Bilirubin Total 0.3 mg/dL (0.2-1.0); Potassium 3.9 mmol/L (3.5-5.1); Protein, Total 8.8 g/dL (6.4-8.2)
--- NOTE | 2021-01-23 03:20 | EDPHYS ---
Physician Documentation [facility] Name: Christian Lee Age: 40 yrs Sex: Male : 1980 Arrival Date: 01/23/2021 Time: 01:47 Bed 13 Private MD: ED Physician Enrrique Poe HPI: 01/23 01:50 This 40 yrs old Male presents to ER via Unassigned with complaints of rn Abdominal Pain. 01:50 The patient presents with abdominal pain in the epigastric area. Onset: The rn symptoms/episode began/occurred last night. The symptoms do not radiate. Associated signs and symptoms: Pertinent positives: nausea and vomiting, Pertinent negatives: blood in stools, chest pain, fever, shortness of breath, testicular pain, vomiting blood. The symptoms are described as crampy, intermittent, sharp. Modifying factors: The symptoms are alleviated by nothing, the symptoms are aggravated by pressure. Severity of pain: At its worst the pain was moderate in the emergency department the pain is unchanged. The patient has experienced similar episodes in the past. The patient has not recently seen a physician. Patient reports upper abdominal pain, began last night, associated with nausea and vomiting x5 times. Denies any blood in emesis or stool. No fever. Reports similar episodes in the past with diabetic gastroparesis. States just moved to the area.. Historical: - Allergies: 01:51 Clonidine; bb 01:51 Reglan; bb 01:51 Compazine; bb - Home Meds: 01:51 Nortriptyline Oral [Active]; Ambien Oral [Active]; Simvastatin Oral [Active]; bb lisinopril-hydrochlorothiazide oral [Active]; Lantus Sub-Q [Active]; Novolog Sub-Q [Active]; - PMHx: 01:51 Hypertensive disorder; Diabetes mellitus; Insomnia; Neuropathy; Gastroparesis; bb - Immunization history:: Adult Immunizations up to date, Client reports receiving the 2nd dose of the Covid vaccine. - Social history:: Smoking status: Patient denies any tobacco usage or history of. Patient/guardian denies using alcohol, street drugs. - Family history:: not pertinent. - Hospitalizations: : No recent hospitalization is reported. ROS: 01:50 Constitutional: Negative for fever, chills, and weight loss, Eyes: Negative for injury, rn pain, redness, and discharge, Neck: Negative for injury, pain, and swelling, Cardiovascular: Negative for chest pain, palpitations, and edema, Respiratory: Negative for shortness of breath, cough, wheezing, and pleuritic chest pain, Abdomen/GI: Positive for abdominal pain/nausea/vomiting : Negative for injury, bleeding, discharge, and swelling, MS/Extremity: Negative for injury and deformity, Skin: Negative for injury, rash, and discoloration, Neuro: Negative for headache, weakness, numbness, tingling, and seizure. Exam: 01:50 Constitutional: This is a well developed, well nourished patient who is awake, alert, rn appears uncomfortable Head/Face: Normocephalic, atraumatic. Eyes: Periorbital areas with no swelling, redness, or edema. Cardiovascular: Tachycardic, regular. No pulse deficits. Respiratory: Mild tachypnea, no retractions. Speaking full sentences Abdomen/GI: Soft, tender in epigastrium, no peritoneal signs Skin: Warm, dry, 2 ulcerations of right foot, one plantar and the other on the dorsum of the second digit, with foul smell and mild drainage. MS/ Extremity: Pulses equal, no cyanosis. Neurovascular intact. Full, normal range of motion. Equal circumference. Neuro: Awake and alert, GCS 15 02:15 ECG was reviewed by the Attending Physician. rn Vital Signs: 01:47 BP 139 / 86; Pulse 135; Resp 20 S; Temp 100.4(O); Pulse Ox 99% on R/A; Weight 88.45 kg bb (R); Height 6 ft. 1 in. (185.42 cm) (R); Pain 10/10; 02:19 BP 129 / 80; Pulse 135; Resp 17; Temp 100.4; Pulse Ox 98% on R/A; ch4 02:19 BP 111 / 70; Pulse 117; Resp 23; Pulse Ox 98% on R/A; ch4 04:11 BP 127 / 91; Pulse 110; Resp 9; Pulse Ox 99% on R/A; ch4 01:47 Body Mass Index 25.73 (88.45 kg, 185.42 cm) bb Isaac Coma Score: 02:19 Eye Response: spontaneous(4). Verbal Response: oriented(5). Motor Response: obeys ch4 commands(6). Total: 15. MDM: 01:47 Patient medically screened. rn 01:54 Data interpreted: pvc monitor: rate is 135 beats/min, rhythm is sinus tachycardia, rn with no ectopy, Interpretation: tachycardia, Pulse oximetry: on room air is 99 %. Interpretation: normal. 03:17 Differential diagnosis: cholecystitis, Cholelithiasis, gastritis, gastroesophageal rn reflux disease, pancreatitis, Peptic Ulcer Disease, Pancreatitis, gastroparesis, diabetic ulcer, infected ulcer, sepsis. Data reviewed: vital signs, nurses notes, lab test result(s), EKG, and as a result, I will admit patient. Counseling: I had a detailed discussion with the patient and/or guardian regarding: the historical points, exam findings, and any diagnostic results supporting the discharge/admit diagnosis, lab results, the need for further work-up and treatment in the hospital. Response to treatment: the patient's symptoms have mildly improved after treatment, and as a result, I will admit patient. Admission orders: after a detailed discussion of the patient's condition and case, the admit orders are written by me. ED course: Abdominal pain and nausea improved after medication, patient with low-grade fever and elevated white blood cell count, reports change in smell and drainage of right foot wounds, likely source, will admit for diabetic infected ulcers of right foot. Patient does not have PCP yet, just moved to town, no follow-up.. 01/23 01:48 Order name: Basic Metabolic Panel; Complete Time: 03:03 rn 01/23 01:48 Order name: CBC with Diff; Complete Time: 03:03 01/23 01:48 Order name: Hepatic Function; Complete Time: 03:03 01/23 01:48 Order name: Lipase; Complete Time: 03:03 01/23 01:50 Order name: Blood Culture Adult (2) rn 01/23 01:50 Order name: Procalcitonin; Complete Time: 03:49 rn 01/23 01:50 Order name: Lactate; Complete Time: 03:03 rn 01/23 01:50 Order name: Blood Culture EDNJ 01/23 02:14 Order name: Glucose, Ancillary Testing; Complete Time: 02:19 EDNJ 01/23 03:04 Order name: Wound Culture 01/23 05:43 Order name: Lactate Sepsis 2 HR Follow-up; Complete Time: 01:35 EDMS 01/23 08:04 Order name: Glucose, Ancillary Testing; Complete Time: 01:35 EDMS 01/23 09:39 Order name: C-Reactive Protein; Complete Time: 01:35 EDMS 01/23 10:10 Order name: Hemoglobin A1c; Complete Time: 01:35 EDMS 01/23 10:38 Order name: Sedimentation Rate, Westergren; Complete Time: 01:35 EDMS 01/23 11:49 Order name: Glucose, Ancillary Testing; Complete Time: 01:35 EDMS 01/23 17:07 Order name: Glucose, Ancillary Testing; Complete Time: 01:35 EDMS 01/23 18:13 Order name: CORONAVIRUS EDMS 01/23 19:13 Order name: Gram Stain--Aerobic Bottle EDMS 01/23 19:17 Order name: SARS-COV-2 RT PCR; Complete Time: 01:35 EDMS 01/23 21:36 Order name: Gram Stain--Anaerobic Bottle EDMS 01/23 21:42 Order name: Glucose, Ancillary Testing; Complete Time: 01:35 EDMS 01/24 02:33 Order name: CBC with Automated Diff EDMS 01/24 02:44 Order name: Comprehensive Metabolic Panel EDMS 01/24 02:44 Order name: Phosphorus EDMS 01/24 02:44 Order name: Lipid Profile EDMS 01/24 02:44 Order name: T4 Free EDMS 01/24 02:44 Order name: Magnesium EDMS 01/24 02:44 Order name: Thyroid Stimulating Hormone EDMS 01/24 03:17 Order name: CBC Smear Scan EDMS 01/23 01:48 Order name: IV Saline Lock; Complete Time: 02:16 rn 01/23 01:48 Order name: Labs collected and sent; Complete Time: 02:16 rn 01/23 01:48 Order name: Glucose Level; Complete Time: 02:16 rn 01/23 01:48 Order name: CT Abd/Pelvis - IV Contrast Only rn 01/23 01:54 Order name: EKG; Complete Time: 01:54 rn 01/23 01:54 Order name: EKG - Nurse/Tech; Complete Time: 02:15 rn 01/23 03:04 Order name: XRAY Foot RIGHT 3 View rn 01/23 14:57 Order name: CT EDMS 01/24 06:47 Order name: Gram Stain--Aerobic Bottle EDMS 01/24 08:10 Order name: Glucose, Ancillary Testing EDMS 01/24 09:51 Order name: Vancomycin Level Trough EDMS 01/24 11:37 Order name: Glucose, Ancillary Testing EDMS EC:15 Rate is 129 beats/min. Rhythm is regular. QRS [place] is Normal. ME interval is normal. rn QRS interval is normal. QT interval is normal. No Q waves. T waves are Normal. No ST changes noted. Clinical impression: Sinus tachycardia. Interpreted by me. Reviewed by me. Administered Medications: 02:16 Drug: NS 0.9% 1000 ml Route: IV; Rate: 1000 ml; Site: right antecubital; ch4 05:00 Follow up: IV Status: Completed infusion bs2 02:16 Drug: Zofran (Ondansetron) 4 mg Route: IVP; Site: right antecubital; ch4 02:30 Follow up: Response: No adverse reaction bs2 02:16 Drug: morphine 4 mg Route: IVP; Site: right antecubital; ch4 02:30 Follow up: Response: No adverse reaction bs2 02:22 Drug: Tylenol 1000 mg Route: PO; ch4 03:00 Follow up: Response: No adverse reaction bs2 04:07 Drug: vancoMYCIN 1 grams Route: IVPB; Infused Over: 2 hrs; Site: right antecubital; ch4 06:30 Follow up: IV Status: Completed infusion bs2 05:24 Drug: Zofran (Ondansetron) 4 mg Route: IVP; Site: left antecubital; ch4 06:00 Follow up: Response: No adverse reaction bs2 06:52 Drug: Demerol (meperidine) 25 mg Route: IVP; Site: left antecubital; ch4 07:00 Follow up: Response: No adverse reaction bs2 Disposition Summary: 01/23/21 03:19 Hospitalization Ordered Hospitalization Status: Inpatient Admission rn Provider: Gabo Juarez rn Condition: Stable rn Problem: new rn Symptoms: have improved rn Bed/Room Type: Standard rn Location: Telemetry/MedSurg (Inpatient)(01/24/21 13:28) dw Room Assignment: 214(01/24/21 13:28) dw Diagnosis - Cellulitis of right lower limb rn - Hyperglycemia, unspecified rn - Gastroparesis rn Forms: - Medication Reconciliation Form rn - SBAR form rn Signatures: Dispatcher [employer] EDSheyla Hamm, RN RN dw Yas De Guzman, RN Katelynn Marks, RN Enrrique Walton MD MD rn Roszak, Josh, PA PA jr8 Divine Vega, Maranda Villavicencio RN, RN bs2 Corrections: (The following items were deleted from the chart) 03:05 01:50 Constitutional: This is a well developed, well nourished patient who is awake, rn alert, appears uncomfortable Head/Face: Normocephalic, atraumatic. Eyes: Periorbital areas with no swelling, redness, or edema. Cardiovascular: Tachycardic, regular. No pulse deficits. Respiratory: Mild tachypnea, no retractions. Speaking full sentences Abdomen/GI: Soft, tender in epigastrium, no peritoneal signs Skin: Warm, dry MS/ Extremity: Pulses equal, no cyanosis. Neurovascular intact. Full, normal range of motion. Equal circumference. Neuro: Awake and alert, GCS 15 rn 14:34 03:19 Telemetry/MedSurg (Inpatient) rn iw 14:34 03:19 rn iw 01/24 13:28 08 14:34 [facility] ER [facility] 01/24 13:28 01/23 14:[facility]
--- NOTE | 2021-01-23 03:20 | ER ---
Nurse's Notes [facility] Name: Christian Lee Age: 40 yrs Sex: Male : 1980 Arrival Date: 01/23/2021 Time: 01:47 Bed 13 Private MD: Diagnosis: Cellulitis of right lower limb;Hyperglycemia, unspecified;Gastroparesis Presentation: 01/23 01:47 Chief complaint: Patient states: he started having abdominal pain yesterday afternoon bb thought it might go away but it has gotten worse and he is vomiting also his right ankle and foot is swollen and painful has diabetic wound which has been treated for approx a year now. Coronavirus screen: Vaccine status: Patient reports receiving the 2nd dose of the covid vaccine. Ebola Screen: No symptoms or risks identified at this time. Initial Sepsis Screen: Does the patient meet any 2 criteria? HR > 90 bpm. Does the patient have a suspected source of infection? Yes: Skin breakdown/wound. Risk Assessment: Do you want to hurt yourself or someone else? Patient reports no desire to harm self or others. Onset of symptoms was January 22, 2021. 01:47 Method Of Arrival: Wheelchair bb 01:47 Acuity: IRINEO 3 bb Historical: - Allergies: 01:51 Clonidine; bb 01:51 Reglan; bb 01:51 Compazine; bb - Home Meds: 01:51 Nortriptyline Oral [Active]; Ambien Oral [Active]; Simvastatin Oral [Active]; bb lisinopril-hydrochlorothiazide oral [Active]; Lantus Sub-Q [Active]; Novolog Sub-Q [Active]; - PMHx: 01:51 Hypertensive disorder; Diabetes mellitus; Insomnia; Neuropathy; Gastroparesis; bb - Immunization history:: Adult Immunizations up to date, Client reports receiving the 2nd dose of the Covid vaccine. - Social history:: Smoking status: Patient denies any tobacco usage or history of. Patient/guardian denies using alcohol, street drugs. - Family history:: not pertinent. - Hospitalizations: : No recent hospitalization is reported. Assessment: 02:17 General: Appears distressed, ill, Behavior is cooperative, Reports fever for feeling ch4 ill for 1-2 days. Pain: Complains of pain in abdomen and right foot. Neuro: No deficits noted. Cardiovascular: Capillary refill < 3 seconds Rhythm is sinus tachycardia. Respiratory: No deficits noted. GI: Bowel sounds present X 4 quads. Abd is soft and non tender Reports vomiting, Patient currently denies diarrhea. : No deficits noted. EENT: No deficits noted. Derm: Decubitus located on right foot/toe Reports increased pain odor from diabetic ulcer on foot. Musculoskeletal: Reports pain in right foot. Vital Signs: 01:47 BP 139 / 86; Pulse 135; Resp 20 S; Temp 100.4(O); Pulse Ox 99% on R/A; Weight 88.45 kg bb (R); Height 6 ft. 1 in. (185.42 cm) (R); Pain 10/10; 02:19 BP 129 / 80; Pulse 135; Resp 17; Temp 100.4; Pulse Ox 98% on R/A; ch4 02:19 BP 111 / 70; Pulse 117; Resp 23; Pulse Ox 98% on R/A; ch4 04:11 BP 127 / 91; Pulse 110; Resp 9; Pulse Ox 99% on R/A; ch4 01:47 Body Mass Index 25.73 (88.45 kg, 185.42 cm) bb Vitals: 02:19 Cardiac Rhythm Assessment Sinus tach. ch4 Isaac Coma Score: 02:19 Eye Response: spontaneous(4). Verbal Response: oriented(5). Motor Response: obeys ch4 commands(6). Total: 15. ED Course: 01:47 Patient arrived in ED. bp1 01:47 Enrrique Poe MD is Attending Physician. rn 01:51 Triage completed. bb 01:51 Arm band placed on Patient placed in an exam room, on a stretcher, on panel monitor, bb on pulse oximetry. 01:58 Divine Vega, RN is Primary Nurse. ch4 02:16 Blood Culture Adult (2) Sent. ch4 02:20 Inserted saline lock: 20 gauge 22 gauge in right in left antecubital area, using ch4 aseptic technique. forearm, using aseptic technique. Wound care: to decubitus. 02:58 Notified ED physician of a critical lab result(s). lactate 2.7 Dr Poe notified. bb 03:19 Gabo Juarez is Hospitalizing Provider. rn 03:21 XRAY Foot RIGHT 3 View In Process Unspecified. EDMS 01/24 00:42 CORONAVIRUS Sent. bs2 00:45 CT Abd/Pelvis - IV Contrast Only Sent. bs2 Administered Medications: 01/23 02:16 Drug: NS 0.9% 1000 ml Route: IV; Rate: 1000 ml; Site: right antecubital; ch4 05:00 Follow up: IV Status: Completed infusion bs2 02:16 Drug: Zofran (Ondansetron) 4 mg Route: IVP; Site: right antecubital; ch4 02:30 Follow up: Response: No adverse reaction bs2 02:16 Drug: morphine 4 mg Route: IVP; Site: right antecubital; ch4 02:30 Follow up: Response: No adverse reaction bs2 02:22 Drug: Tylenol 1000 mg Route: PO; ch4 03:00 Follow up: Response: No adverse reaction bs2 04:07 Drug: vancoMYCIN 1 grams Route: IVPB; Infused Over: 2 hrs; Site: right antecubital; ch4 06:30 Follow up: IV Status: Completed infusion bs2 05:24 Drug: Zofran (Ondansetron) 4 mg Route: IVP; Site: left antecubital; ch4 06:00 Follow up: Response: No adverse reaction bs2 06:52 Drug: Demerol (meperidine) 25 mg Route: IVP; Site: left antecubital; ch4 07:00 Follow up: Response: No adverse reaction bs2 Outcome: 03:19 Decision to Hospitalize by Provider. rn 01/24 15:56 Patient left the ED. iw Signatures: Dispatcher [employer] EDMS Yas De Guzman RN RN bb Williams, Irene, RN RN iw Enrrique Poe MD MD rn Pania[place], Brittany bp1 Smith, Bridget, RN RN bs2 Divine Vega RN RN ch4
[2021-01-23] MEDS ORDERED: NA CHLORIDE 0.9% 250 ML ONE (04:12)
[2021-01-23] MEDS ORDERED: VANCOMYCIN 1 GM/VIAL ONE ×2 (04:12→22:15)
--- NOTE | 2021-01-23 05:38 | P.HP ---
Certification for Inpatient Patient admitted to: Inpatient With expected LOS: >2 Midnights Patient will require the following post-hospital care: None Practitioner: I am a practitioner with admitting privileges, knowledge of patient current condition, hospital course, and medical plan of care. Services: Services provided to patient in accordance with Admission requirements found in Title 42 Section 412.3 of the Code of Federal Regulations Patient History Date of Service: 01/23/21 Reason for admission: R foot cellulitis History of Present Illness: Mr. Lee is a 40 yo M with T1DM, diabetic gastroparesis s/p gastroneuro stimulator implant and neuropathy, HTN who presents with increased throbbing pain, swelling, and foul smelling drainage from his R foot. He has had a diabetic foot ulcer on this foot for some time and says he has been cleaning the wound every other day. He has an appointment on Thursday to be seen in the wound care clinic. He also has had a flare up of his gastroparesis. He reports constant vomiting and worsening pain for the past several hours. WBC 12.1, Glu 267, Lactate 2.7, procal 0.12. - Past Medical/Surgical History -: T1DM -: gastoparesis -: neuropathy -: HLD -: HTN -: R foot diabetic ulcer debridement -: cholecystectomy -: gastroneuro stimulator implant -: multiple vascular procedures on R leg - Family History Family History: Reviewed- Non-Contributory - Social History Smoking Status: Never smoker Alcohol use: No CD- Drugs: No Caffeine use: Yes Place of Residence: Home Review of Systems 10-point ROS is otherwise unremarkable General: Fever Gastrointestinal: Nausea, Vomiting, Abdominal Pain Musculoskeletal: Foot Pain Integumentary: Lesions Physical Examination - Physical Exam General: Alert, In no apparent distress HEENT: Atraumatic, PERRLA, Mucous membr. moist/pink, EOMI, Sclerae nonicteric Neck: Supple, 2+ carotid pulse no bruit, No LAD, Without JVD or thyroid abnormality Respiratory: Clear to auscultation bilaterally, Normal air movement Cardiovascular: Regular rate/rhythm, Normal S1 S2 Gastrointestinal: Normal bowel sounds, No ascites, No masses, No rebound, No guarding, Tenderness Musculoskeletal: No clubbing, No contractures, Swelling, Erythema, Tenderness, Warmth Integumentary: Diabetic ulcer Neurological: Normal speech, Normal strength at 5/5 x4 extr, Normal tone, Normal affect Lymphatics: No axilla or inguinal lymphadenopathy - Studies Laboratory Data (last 24 hrs) 01/23/21 02:05: WBC 12.10 H, Hgb 12.0 L, Hct 35.3 L, Plt Count 453 H 01/23/21 02:05: Sodium 139, Potassium 3.9, BUN 24 H, Creatinine 1.24, Glucose 267 H, Total Bilirubin 0.3, AST 8 L, ALT 24, Alkaline Phosphatase 102, Lipase 73 Assessment and Plan - Problems (Diagnosis) (1) Cellulitis of right foot Current Visit: Yes Status: Acute (2) Type 1 diabetes Current Visit: Yes Status: Chronic Qualifiers: Diabetes mellitus complication status: with kidney complications Diabetes mellitus complication detail: with chronic kidney disease Chronic kidney disease stage: stage 2 (mild) Qualified Code(s): E10.22 - Type 1 diabetes mellitus with diabetic chronic kidney disease; N18.2 - Chronic kidney disease, stage 2 (mild) (3) Gastroparesis Current Visit: Yes Status: Acute (4) Neuropathy Current Visit: Yes Status: Chronic (5) HTN (hypertension) Current Visit: Yes Status: Chronic Qualifiers: Hypertension type: primary hypertension Qualified Code(s): I10 - Essential (primary) hypertension (6) HLD (hyperlipidemia) Current Visit: Yes Status: Chronic Qualifiers: Hyperlipidemia type: unspecified Qualified Code(s): E78.5 - Hyperlipidemia, unspecified - Plan continue IVF hydration and IV antibiotic treatment Xray of the foot pending, will follow up with MRI to rule out osteo, ESR & CRP pending wound care consulted antiemetics and pain management as needed for gastroparesis, CTAP pending A1c pending, accuchecks and sliding scale insulin reconcile and continue home medications Discharge Plan: Home Plan to discharge in: 48 Hours - Advance Directives Does patient have a Living Will: No Does patient have a Durable POA for Healthcare: No - Code Status/Comfort Care Code Status Assessed: Yes (full code ) Critical Care: No Time Spent Managing Pts Care (In Minutes): 70
[2021-01-23] MEDS: NA CHLORIDE 0.9% 1,000 ML IV SCH ×2 (05:44→15:15)
[2021-01-23] MEDS ORDERED: MORPHINE 2 MG/ML SYR IV PRN (05:44)
[2021-01-23] MEDS ORDERED: ACETAMINOPHEN 500 MG TAB PO PRN (05:44)
[2021-01-23] MEDS ORDERED: HYDRALAZINE HCL 20 MG/ML VIAL IV PRN (05:44)
[2021-01-23 05:53] VITALS: BMI 25.6
[2021-01-23] MEDS ORDERED: MEPERIDINE HCL 25 MG/ML SYR ONE (07:10)
[2021-01-23] MEDS: INSULIN -REGULAR HUMAN 50 UNIT/0.5 ML ML SQ SCH ×4 (07:30→21:00)
[2021-01-23] MEDS: CEFEPIME/SWI 1gm 10 ML IVP SCH ×2 (09:00→09:10)
[2021-01-23] MEDS ORDERED: CEFEPIME 1 GM/VIAL IV SCH (09:00)
[2021-01-23] MEDS: ENOXAPARIN 40 MG/0.4 ML SQ SCH (09:00)
[2021-01-23] MEDS ORDERED: ENOXAPARIN 40 MG/0.4 ML SQ ONE (09:22)
[2021-01-23] MEDS ORDERED: CEFEPIME/SWI 1gm 10 ML ONE (09:23)
[2021-01-23] MEDS ORDERED: MORPHINE 2 MG/ML SYR ONE (09:25)
[2021-01-23] MEDS: VANCOMYCIN 1.5 GM in NA CHLORIDE 0.9% 500 ML IVPB SCH ×2 (10:00→21:00)
[2021-01-23] MEDS: ONDANSETRON 4 MG/2 ML VIAL IV PRN (11:00)
--- NOTE | 2021-01-23 11:27 | EKG ---
Test Date: 2021-01-23 Test Time: 02:08:44 Machine Operator Picker: CASSY MEASUREMENT RESULTS: Intervals: Rate: 129 OR: 112 QRSD: 78 QT: 318 QTc: 465 [place]: P: 49 OR: 112 QRS: 47 T: 45 INTERPRETIVE STATEMENTS: Sinus tachycardia Possible Left atrial enlargement Borderline ECG No previous ECG available for comparison Electronically Signed On 01-23-21 11:26:20 CDT by Octavio Puri
[2021-01-23] MEDS: HYDROMORPHONE HCL 1 MG/ML INJ IV PRN ×3 (12:52→22:07)
[2021-01-23] MEDS: PROMETHAZINE INJ 25 MG/ML AMP IV PRN ×2 (12:52→19:19)
[2021-01-23] MEDS ORDERED: PROMETHAZINE INJ 25 MG/ML AMP ONE ×2 (13:19→19:35)
[2021-01-23] MEDS ORDERED: NA CHLORIDE 0.9% 50 ML ONE (13:20)
[2021-01-23] MEDS ORDERED: HYDROMORPHONE HCL 1 MG/ML INJ ONE ×2 (13:20→16:25)
--- NOTE | 2021-01-23 14:56 | RAD REPORT ---
EXAM DESCRIPTION: CT - Abdomen Pelvis W Contrast - 01/23/2021 6:19 am CLINICAL HISTORY: The patient is 40 years old and is Male; ABD PAIN TECHNIQUE: Axial computed tomography images of the abdomen and pelvis with intravenous contrast. S agittal and coronal reformatted images were created and reviewed. This CT exam was performed using one or more of the following dose reduction techniques: automated exposure control, adjustment of t he mA and/or kV according to patient size, and/or use of iterative reconstruction technique. COMPARISON: No relevant prior studies available. FINDINGS: Lung bases: Unremarkable. No mass. No consolidation. ABDOMEN: Liver: Unremarkable. No mass. Gallbladder and bile ducts: The gallbladder is surgically absent. No ductal dilation. Pancreas: Unremarkable. No mass. No ductal dilation. Spleen: Unremarkable. No splenomegaly. Adrenals: Unremarkable. No mass. Kidneys and ureters: Unremarkable. No solid mass. No hydronephrosis. Stomach and bowel: Unremarkable. No obstruction. No mucosal thickening. PELVIS: Appendix: No findings to suggest acute appendicitis. Bladder: The bladder is distended. Reproductive: Unremarkable as visualized. ABDOMEN and PELVIS: Intraperitoneal space: Unremarkable. No free air. No significant fluid collection. Bones/joints: Disc space narrowing with degenerative endplate changes at L4-L5. No acute fracture. No dislocation. Soft tissues: Unremarkable. Vasculature: Scattered atherosclerotic vascular calcifications. No abdominal aortic aneurysm. Lymph nodes: Unremarkable. No enlarged lymph nodes. IMPRESSION: No acute findings in the abdomen or pelvis. Electronically signed by: Jamie Robles MD 01/23/2021 4:43 AM CDT Due to temporary technical issues with the PACS/Fluency reporting system, reports are being signed by the in house radiologists without review as a courtesy to insure prompt reporting. The interpreting radiologist is fully responsible for the content of the report.
[2021-01-23] MEDS ORDERED: Pharmacy Consult 1 EA XX PRN (15:00)
[2021-01-23] MEDS ORDERED: INSULIN -REGULAR HUMAN 50 UNIT/0.5 ML ML ONE ×3 (15:25→22:14)
--- NOTE | 2021-01-23 18:09 | P.PN ---
Subjective Date of Service: 01/23/21 Chief Complaint: R foot cellulitis Subjective: No new changes Review of Systems General: Weakness Eyes: Unremarkable ENT: Unremarkable Respiratory: Unremarkable Cardiovascular: Unremarkable Gastrointestinal: Other (abd pain ) Genitourinary: Unremarkable Musculoskeletal: Unremarkable Integumentary: As per HPI Neurological: Unremarkable Lymphatics: Unremarkable Physical Examination - Vital Signs Temperature: 98.4 F Blood Pressure: 130/93 Pulse: 109 Respirations: 14 Pulse Ox (%): 98 - Physical Exam General: Alert, In no apparent distress, Oriented x3 HEENT: Atraumatic, PERRLA, EOMI Neck: Supple, JVD not distended Respiratory: Clear to auscultation bilaterally, Normal air movement Cardiovascular: Regular rate/rhythm, Normal S1 S2 Capillary refill: <2 Seconds Gastrointestinal: Normal bowel sounds, Tenderness Musculoskeletal: No clubbing, No tenderness Integumentary: Tenderness/swelling, Erythema, Warmth, Diabetic ulcer Neurological: Normal speech, Normal tone, Normal affect Lymphatics: No axilla or inguinal lymphadenopathy External genitalia: Deferred Rectal: Deferred - Studies Laboratory Data (last 24 hrs) 01/23/21 02:05: WBC 12.10 H, Hgb 12.0 L, Hct 35.3 L, Plt Count 453 H 01/23/21 02:05: Sodium 139, Potassium 3.9, BUN 24 H, Creatinine 1.24, Glucose 267 H, Total Bilirubin 0.3, AST 8 L, ALT 24, Alkaline Phosphatase 102, Lipase 73 Assessment And Plan - Plan Interval history. 01/23/2021 --Abdominal pain. Patient complains of severe abdominal pain. No acute findings noted on CT abdomen. Abdominal pain could be secondary to gastroparesis. Patient placed on Reglan p.o. tid --Right foot diabetic ulcer with superimposed cellulitis. Blood and wound cultures pending. MRI foot pending. Continue antibiotics. --Acute pain. We will manage pain with current pain medication regimen. --Continue with the rest of the current treatment plan. --DVT prophylaxis with Lovenox subQ Assessment (1) Cellulitis of right foot (2) Type 1 diabetes (3) Gastroparesis (4) Neuropathy (5) HTN (hypertension) (6) HLD (hyperlipidemia) - Plan continue IVF hydration and IV antibiotic treatment Xray of the foot pending, will follow up with MRI to rule out osteo, ESR & CRP pending wound care consulted antiemetics and pain management as needed for gastroparesis, CTAP pending A1c pending, accuchecks and sliding scale insulin reconcile and continue home medications Discharge Plan: Home Plan to discharge in: 48 Hours - Code Status/Comfort Care Code Status Assessed: Yes Code Status: Full Code Physician Review: Patient Assessed, Agree with Above Assessment and Plan Critical Care: No
[2021-01-23] MEDS ORDERED: HYDROMORPHONE HCL 2 MG/ML inj ONE ×2 (19:36→22:13)
[2021-01-23] MEDS: METOCLOPRAMIDE 5 MG TAB PO SCH (21:00)
[2021-01-23] MEDS ORDERED: METOCLOPRAMIDE 5 MG TAB ONE (22:13)
[2021-01-23] MEDS ORDERED: NA CHLORIDE 0.9% 500 ML ONE (22:15)
[2021-01-24] MEDS: HYDROMORPHONE HCL 1 MG/ML INJ IV PRN ×6 (01:40→16:50)
[2021-01-24] MEDS: NA CHLORIDE 0.9% 1,000 ML IV SCH ×3 (01:40→19:34)
[2021-01-24] MEDS: PROMETHAZINE INJ 25 MG/ML AMP IV PRN (01:40)
[2021-01-24] MEDS ORDERED: PROMETHAZINE INJ 25 MG/ML AMP ONE (01:53)
[2021-01-24] MEDS ORDERED: NA CHLORIDE 0.9% 1,000 ML ONE ×2 (01:53→08:56)
[2021-01-24] MEDS ORDERED: HYDROMORPHONE HCL 2 MG/ML inj ONE ×3 (01:53→07:11)
[2021-01-24 02:30] LABS: Absolute Lymphocytes (CBC) 1.3 K/uL (0.7-4.9); Basophils % 2.5 % (0-1.3); Hematocrit 33.5 % (39.6-49.0); Lymphocytes % 17.4 % (15.3-44.8); MPV 8.3 fL (7.6-11.3); RBC Red Blood Cell Count 3.63 M/uL (4.33-5.43)
[2021-01-24 02:43] LABS: ALT/SGPT 133 U/L (12-78); AST/SGOT 103 U/L (15-37); Albumin 2.7 g/dL (3.4-5.0); Alkaline Phosphatase 115 U/L (45-117); BUN Blood Urea Nitrogen 13 mg/dL (7-18); Bicarbonate 25 mmol/L (21-32); Bilirubin Total 0.3 mg/dL (0.2-1.0); Glucose Level 151 mg/dL (74-106); HDL Cholesterol 61 mg/dL (40-60); LDL Cholesterol, Calculated 40 (<130); Magnesium 2.2 mg/dL (1.8-2.4); Phosphorus 2.9 mg/dL (2.5-4.9); Potassium 3.9 mmol/L (3.5-5.1); Protein, Total 7.4 g/dL (6.4-8.2); Sodium Level 141 mmol/L (136-145); Thyroid Stimulating Hormone 0.375 uIU/mL (0.360-3.740)
[2021-01-24 03:16] LABS: Blood Morphology Comment NOT SEEN (NOT SEEN); Platelet Estimate ADEQ; White Blood Cell Scan OK (OK)
[2021-01-24] MEDS ORDERED: TRAMADOL HCL 50 MG TAB PO PRN (04:32)
[2021-01-24] MEDS ORDERED: LABETALOL HCL 100 MG TAB ONE (07:11)
[2021-01-24] MEDS: INSULIN -REGULAR HUMAN 50 UNIT/0.5 ML ML SQ SCH ×5 (07:30→21:00)
[2021-01-24] MEDS: METOCLOPRAMIDE 5 MG TAB PO SCH ×2 (07:30→11:30)
[2021-01-24] MEDS ORDERED: METOCLOPRAMIDE 5 MG TAB ONE (07:51)
[2021-01-24] MEDS ORDERED: CEFEPIME/SWI 1gm 10 ML ONE (07:52)
[2021-01-24] MEDS ORDERED: ENOXAPARIN 40 MG/0.4 ML SQ ONE (07:52)
[2021-01-24] MEDS ORDERED: D50W 25 GM/50 ML SYRINGE IV PRN (08:00)
[2021-01-24] MEDS ORDERED: DEXTROSE IV ONE (08:03)
[2021-01-24] MEDS: ENOXAPARIN 40 MG/0.4 ML SQ SCH (08:17)
[2021-01-24] MEDS: CEFEPIME/SWI 1gm 10 ML IVP SCH ×2 (08:21→21:00)
[2021-01-24] MEDS ORDERED: INSULIN -REGULAR HUMAN 50 UNIT/0.5 ML ML ONE ×2 (08:55→12:04)
[2021-01-24] MEDS: MEDIHONEY 44 ML TOPICAL TUBE TOP SCH (09:00)
[2021-01-24] MEDS: VANCOMYCIN 1.5 GM in NA CHLORIDE 0.9% 500 ML IVPB SCH (09:00)
[2021-01-24] MEDS ORDERED: HYDROMORPHONE HCL 1 MG/ML INJ ONE ×2 (10:25→13:43)
[2021-01-24] MEDS: ONDANSETRON 4 MG/2 ML VIAL IV PRN (16:50)
--- NOTE | 2021-01-24 17:49 | P.PN ---
Subjective Date of Service: 01/24/21 Chief Complaint: R foot cellulitis Patient is tolerating ADA diet. He does report some intermittent abdominal pain. Physical Examination - Vital Signs Temperature: 98.2 F Blood Pressure: 135/70 Pulse: 111 Respirations: 18 Pulse Ox (%): 98 - Physical Exam General: Alert, In no apparent distress HEENT: Mucous membr. moist/pink Neck: JVD not distended Respiratory: Clear to auscultation bilaterally, Normal air movement Cardiovascular: Regular rate/rhythm, Normal S1 S2 Gastrointestinal: Normal bowel sounds, Soft and benign, Non-distended Musculoskeletal: No swelling Integumentary: Other (Wound-right 1st and 2nd toe web) Neurological: Normal strength at 5/5 x4 extr Lymphatics: No axilla or inguinal lymphadenopathy - Studies Microbiology Data (last 24 hrs): 01/23/21 01:50 Blood - Blood Blood Culture Gram Stain - Final 01/23/21 01:50 Blood - Blood Gram Stain - Final 01/23/21 01:50 Blood - Blood Anaerobic Blood Culture - Final Assessment And Plan - Current Problems (Diagnosis) (1) Diabetic foot ulcer Current Visit: Yes Status: Acute (2) Cellulitis of right foot Current Visit: Yes Status: Acute (3) Gastroparesis Current Visit: Yes Status: Acute (4) HTN (hypertension) Current Visit: Yes Status: Chronic Qualifiers: Hypertension type: primary hypertension Qualified Code(s): I10 - Essential (primary) hypertension (5) Neuropathy Current Visit: Yes Status: Chronic (6) Type 1 diabetes Current Visit: Yes Status: Chronic Qualifiers: Diabetes mellitus complication status: with kidney complications Diabetes mellitus complication detail: with chronic kidney disease Chronic kidney disease stage: stage 2 (mild) Qualified Code(s): E10.22 - Type 1 diabetes mellitus with diabetic chronic kidney disease; N18.2 - Chronic kidney disease, stage 2 (mild) - Plan Patient wound is growing Gram positive cocci-coagulase positive. 2 set of blood cultures also growing Gram positive cocci. Continue IV vancomycin and IV cefepime. Follow cultures. Noted patient has allergy to Reglan. Advised small frequent meals for history of gastroparesis. Will consider erythromycin if symptoms persist. Pain management as needed. Supportive measures. Physician Review: Patient Assessed, Agree with Above Assessment and Plan
[2021-01-24] MEDS ORDERED: HYDROCODONE/APAP 10/325 TAB PO PRN (17:52)
[2021-01-24] MEDS ORDERED: POLYETHYL GLY 3350 17 GM/DOSE PO PRN (17:53)
[2021-01-24] MEDS: lisinopriL 10 MG TAB PO SCH (20:00)
[2021-01-24] MEDS: hydroCHLOROthiazide 12.5 MG CAP PO SCH (20:00)
[2021-01-24] MEDS ORDERED: HOME MED 1 EA UNK (Nortriptyline Hcl [Pamelor] 50 MG Capsule) PO SCH (21:00)
[2021-01-24] MEDS: ROSUVASTATIN 10 MG TAB PO SCH (21:00)
[2021-01-24] MEDS: NORTRIPTYLINE HCL 25 MG CAP PO SCH (21:00)
[2021-01-24] MEDS ORDERED: HOME MED 1 EA UNK (Lisinopril/Hydrochlorothiazide [Lisinopril-Hctz 10-12.5 Mg Tab] Tablet) PO SCH (21:00)
[2021-01-24] MEDS: VANCOMYCIN 1.75 GM in NA CHLORIDE 0.9% 500 ML IVPB SCH (21:00)
[2021-01-24] MEDS: SENOSIDES 8.6 MG TAB PO SCH (21:00)
[2021-01-25 05:39] LABS: Absolute Lymphocytes (CBC) 1.9 K/uL (0.7-4.9); Basophils % 0.7 % (0-1.3); Hematocrit 30.9 % (39.6-49.0); Lymphocytes % 26.8 % (15.3-44.8); MPV 7.7 fL (7.6-11.3); RBC Red Blood Cell Count 3.29 M/uL (4.33-5.43)
[2021-01-25 05:55] LABS: ALT/SGPT 92 U/L (12-78); AST/SGOT 42 U/L (15-37); Albumin 2.5 g/dL (3.4-5.0); Alkaline Phosphatase 116 U/L (45-117); BUN Blood Urea Nitrogen 10 mg/dL (7-18); Bicarbonate 21 mmol/L (21-32); Bilirubin Total 0.3 mg/dL (0.2-1.0); Glucose Level 207 mg/dL (74-106); Potassium 3.7 mmol/L (3.5-5.1); Protein, Total 6.8 g/dL (6.4-8.2); Sodium Level 141 mmol/L (136-145)
[2021-01-25] MEDS: INSULIN -REGULAR HUMAN 50 UNIT/0.5 ML ML SQ SCH ×4 (07:30→21:49)
[2021-01-25] MEDS: NA CHLORIDE 0.9% 1,000 ML IV SCH ×3 (07:44→21:41)
[2021-01-25] MEDS: SENOSIDES 8.6 MG TAB PO SCH ×2 (09:00→21:00)
[2021-01-25] MEDS: hydroCHLOROthiazide 12.5 MG CAP PO SCH (09:00)
[2021-01-25] MEDS: lisinopriL 10 MG TAB PO SCH (09:00)
[2021-01-25] MEDS: CEFEPIME/SWI 1gm 10 ML IVP SCH (09:00)
[2021-01-25] MEDS: HYDROMORPHONE HCL 1 MG/ML INJ IV PRN ×4 (09:35→21:41)
[2021-01-25] MEDS: VANCOMYCIN 1.75 GM in NA CHLORIDE 0.9% 500 ML IVPB SCH ×3 (09:40→21:50)
[2021-01-25] MEDS: ENOXAPARIN 40 MG/0.4 ML SQ SCH (09:43)
--- NOTE | 2021-01-25 10:17 | P.CNS ---
Date of Consult: 01/25/21 Chief Complaint: R foot cellulitis History of Present Illness: The patient is a 32-year-old male with a past medical history of type 1 diabetes, diabetic gastroparesis status post Moralez neurostimulator implant, and diabetic neuropathy, and hypertension who presented to the emergency department due to increased throbbing pain, swelling, and that foul smelling drainage coming from his right foot wound. Patient states that he has dealt with this right foot diabetic ulcer for about 8 year and has Tyrell history of surgical debridement. Patient states he is also having a flare-up of his gastroparesis and reports constant vomiting and worsening pain. In the ED labs were significa nt of a WBC of 12.1, glucose 267, lactate 2.7, and procalcitonin 0.12. Blood cultures performed on 01/23 growing MRSA. Source of infection foot wound. Foot x-ray pending. Patient currently reports pain/throbbing to right foot wound, nausea, vomiting, abdominal pain. Patient denies shortness of breath or chest pain. Allergies metoclopramide [From Reglan] Adverse Reaction (Intermediate, Verified 01/23/21 05:43) Shortness of breath clonidine Adverse Reaction (Verified 01/23/21 05:44) Shortness of breath prochlorperazine [From Compazine] Adverse Reaction (Verified 01/23/21 05:44) Shortness of breath Home Medications: Famotidine 1 tab PO BEDTIME 01/24/21 Insulin Aspart [Novolog] 10 ml SQ ACHS 01/24/21 Insulin Glargine,Hum.rec.anlog [Lantus] 100 units SQ BEDTIME 01/24/21 Lisinopril/Hydrochlorothiazide [Lisinopril-Hctz 10-12.5 mg Tab] 1 tab PO BEDTIME 01/24/21 Nortriptyline HCl [Pamelor] 1 tab PO BEDTIME 01/24/21 Rosuvastatin [Crestor*] 5 mg PO BEDTIME 01/24/21 Zolpidem Tartrate 1 tab PO BEDTIME 01/24/21 - Past Medical/Surgical History -: T1DM -: gastoparesis -: neuropathy -: HLD -: HTN -: R foot diabetic ulcer debridement -: cholecystectomy -: gastroneuro stimulator implant -: multiple vascular procedures on R leg - Social History Alcohol use: No CD- Drugs: No Caffeine use: Yes Place of Residence: Home Review of Systems 10-point ROS is otherwise unremarkable Physical Examination Temp Pulse Resp BP Pulse Ox 97.5 F 108 H 15 165/93 H 97 01/25/21 08:00 01/25/21 08:00 01/25/21 08:00 01/25/21 08:00 01/25/21 08:00 General: Alert, In no apparent distress, Oriented x3 HEENT: Normocephalic Neck: Supple, 2+ carotid pulse no bruit Respiratory: Clear to auscultation bilaterally, Normal air movement Cardiovascular: No edema, Normal pulses Gastrointestinal: Hypoactive, Tenderness Musculoskeletal: No clubbing, No swelling Integumentary: Diabetic ulcer (Diabetic ulcer to right foot: Hammertoe deformity noted, right 2nd toe with ulcer, ulcer noted to plantar aspect as well. Clari wound tissue swollen and erythematous.) Neurological: Normal gait, Normal speech Conclusions/Impression: Antibiotics: Vancomycin Start: 01/23 Stop:-- Indication: MRSA bacteremia Cefepime Start: 01/23 Stop:-- Indication: Infected right diabetic foot ulcer with superimposed cellulitis Assessment/plan Right foot diabetic foot ulcer Foot x-ray pending, MRI unable to obtain due to gastric neuro stimulator placement. Based on foot x-ray findings will consider CT. General surgery to be consulted. Current wound care orders include: Applying Medihoney and wrapping with Kerlix changing daily or p.r.n. if soiled removed. Keep legs elevated at all times. Continue broad-spectrum IV antibiotics. Patient started on vitamins to promote wound healing: Vitamin-D, zinc. Continue to trend inflammatory markers: CRP 132, pro cow 0.12, ESR greater than 140. Bacteremia Blood cultures performed on 01/23 growing MRSA, source of infection infected right diabetic foot ulcer. Recommend repeat blood cultures in 48 hr. Patient will need antibiotics for 2 weeks following a negative blood culture report. Due to MRSA bacteremia patient will also need echocardiogram. Patient started on vancomycin, trough goal of 15-20. Vancomycin trough performed on 01/24 was the low therapeutic range at 9.4, dose increased to 1.75 mg Q 12. Continue to monitor vancomycin trough and renal function. Patient started on probiotic. Diabetes mellitus type 1 Most recent hemoglobin A1c of 11.9. Continue sliding scale insulin, strict glucose monitoring needed for proper wound healing. protein caloric malnutrition Low albumin: 2.5. Recommend supplemental Glucerna drinks. Anemia Continue to monitor H&H Medical management per primary team Continue monitor CBC and BMP Continue to monitor for signs infection Plan of care discussed with Dr. enamorado
--- NOTE | 2021-01-25 11:04 | RAD REPORT ---
EXAM DESCRIPTION: RAD - Foot Right 3 View - 01/23/2021 3:21 am CLINICAL HISTORY: Right foot pain FINDINGS: 13 millimeter avulsion fracture fragment base of the fifth metatarsal. Presumably this is acute/subacute and should be correlated clinically Old fracture distal fifth metatarsal. Osteoporosis No dislocation Edema within the soft tissues. Vascular calcifications are
--- NOTE | 2021-01-25 14:28 | P.PN ---
Subjective Date of Service: 01/25/21 Chief Complaint: R foot cellulitis Patient reports intermittent pain in the right foot. He stated he is eating more. No vomiting He reports intermittent abdominal pain. Physical Examination - Vital Signs Temperature: 97 F Blood Pressure: 148/95 Pulse: 102 Respirations: 16 Pulse Ox (%): 99 - Physical Exam General: Alert, In no apparent distress, Oriented x3 HEENT: Mucous membr. moist/pink Neck: JVD not distended Respiratory: Clear to auscultation bilaterally, Normal air movement Cardiovascular: No edema, Regular rate/rhythm, Normal S1 S2 Gastrointestinal: Normal bowel sounds, Soft and benign, Non-distended, No tenderness Musculoskeletal: No contractures Integumentary: Other (Chronic wound on the dorsum of the right 2nd toe and the sole of the R foot adjacent to the 4th metatarsal head.) Neurological: Normal strength at 5/5 x4 extr Lymphatics: No axilla or inguinal lymphadenopathy - Studies Microbiology Data (last 24 hrs): 01/23/21 01:50 Blood - Blood Anaerobic Blood Culture - Final 01/23/21 01:50 Blood - Blood Aerobic Blood Culture - Final Meth Resistant Staph Aureus 01/23/21 01:50 Blood - Blood Blood Culture Gram Stain - Final 01/23/21 01:50 Blood - Blood Anaerobic Blood Culture - Final Meth Resistant Staph Aureus 01/23/21 01:50 Blood - Blood Gram Stain - Final Assessment And Plan - Current Problems (Diagnosis) (1) Diabetic foot ulcer Current Visit: Yes Status: Acute (2) Cellulitis of right foot Current Visit: Yes Status: Acute (3) Gastroparesis Current Visit: Yes Status: Acute (4) HTN (hypertension) Current Visit: Yes Status: Chronic Qualifiers: Hypertension type: primary hypertension Qualified Code(s): I10 - Essential (primary) hypertension (5) Neuropathy Current Visit: Yes Status: Chronic (6) Type 1 diabetes Current Visit: Yes Status: Chronic Qualifiers: Diabetes mellitus complication status: with kidney complications Diabetes mellitus complication detail: with chronic kidney disease Chronic kidney disease stage: stage 2 (mild) Qualified Code(s): E10.22 - Type 1 diabetes mellitus with diabetic chronic kidney disease; N18.2 - Chronic kidney disease, stage 2 (mild) - Plan Patient wound is growing MRSA Blood cultures are also growing MRSA. Continue IV vancomycin and IV cefepime. Repeat blood cultures. Consult general surgery to evaluate for possible debridement. Osteomyelitis is highly likely. Obtain echocardiogram Infectious disease input appreciated Small frequent meals for gastroparesis suggested. Will consider erythromycin if symptoms persist. Pain management as needed. Supportive measures. Physician Review: Patient Assessed, Agree with Above Assessment and Plan
--- NOTE | 2021-01-25 15:32 | RAD REPORT ---
EXAM DESCRIPTION: CT - Lower Extremity W/ Cont - 01/25/2021 2:52 pm CLINICAL HISTORY: Right diabetic foot wound COMPARISON: Foot Right 3 View dated 01/23/2021 TECHNIQUE: Axial 5 millimeter thick images of the right ankle were obtained following nonionic IV co ntrast administration with sagittal and coronal reformatted images generated and reviewed. All CT scans are performed using dose optimization technique as appropriate and may include automate d exposure control or mA/KV adjustment according to patient size. FINDINGS: Available history indicates soft tissue wound distal second toe. No air or foreign body seen in the soft tissues of the right second toe. Wound changes are seen on th e dorsal margin of the second toe near the PIP joint. There is plantar directed dislocation of the se cond middle phalanx at the PIP joint. Irregular cortical thinning is present in the head of the secon d proximal phalanx and base of the second middle phalanx. In the region of skin wound, osteomyelitis would be suspected. Post trauma fracture changes would be a potential etiology as well. Multiple bone fragments are present at the head of the first proximal phalanx. These bone fragments a re corticated and this is all believed to be a remote under healed fracture or previously treated bon e infection. No active first toe osteomyelitis suspected. The third- fifth toe show no bone destructi ve changes. Patient shows second- fifth MTP joint fixed extension and IP joint flexion. Patient has soft tissue thickening changes along the plantar soft tissues near the second- fourth MTP joints. No air or foreign body. Correlation is needed with any exam findings for soft tissue infecti on. IMPRESSION: Soft tissue wound changes are present along the dorsal surface second toe at the PIP aj nt. Bone disruption in the second proximal and middle phalanges near the PIP joint could be osteomyel itis, posttraumatic change or a combination. Soft tissue thickening and edema change along the plantar soft tissues near the second- fourth MTP pamella ints. No air or foreign body. No bone destruction. Correlation is needed for any exam findings of sof t tissue infection near this site.
[2021-01-25] MEDS: MEDIHONEY 44 ML TOPICAL TUBE TOP SCH (16:00)
[2021-01-25] MEDS: LACTOBACILLUS/ACIDOPHILUS TAB PO SCH (21:00)
[2021-01-25] MEDS: FAMOTIDINE 20 MG TAB PO SCH ×2 (21:00→21:47)
[2021-01-25] MEDS: ROSUVASTATIN 10 MG TAB PO SCH (21:00)
[2021-01-25] MEDS: ONDANSETRON 4 MG/2 ML VIAL IV PRN (21:41)
[2021-01-25] MEDS: NORTRIPTYLINE HCL 25 MG CAP PO SCH (21:54)
[2021-01-25] MEDS: ZOLPIDEM TARTRATE 10 MG TABLET PO PRN (23:23)
[2021-01-26] MEDS: HYDROMORPHONE HCL 1 MG/ML INJ IV PRN ×5 (01:34→23:14)
[2021-01-26 05:50] LABS: BUN Blood Urea Nitrogen 6 mg/dL (7-18); Bicarbonate 22 mmol/L (21-32); Glucose Level 221 mg/dL (74-106); Sodium Level 141 mmol/L (136-145)
[2021-01-26 05:51] LABS: Potassium 3.9 mmol/L (3.5-5.1)
[2021-01-26] MEDS: PROMETHAZINE INJ 25 MG/ML AMP IV PRN ×2 (05:59→15:10)
[2021-01-26] MEDS: INSULIN -REGULAR HUMAN 50 UNIT/0.5 ML ML SQ SCH ×4 (07:30→22:23)
[2021-01-26] MEDS: NA CHLORIDE 0.9% 1,000 ML IV SCH ×3 (07:38→23:44)
[2021-01-26 08:38] LABS: Absolute Lymphocytes (CBC) 1.5 K/uL (0.7-4.9); Basophils % 0.7 % (0-1.3); Hematocrit 33.6 % (39.6-49.0); Lymphocytes % 20.8 % (15.3-44.8); MPV 7.3 fL (7.6-11.3); RBC Red Blood Cell Count 3.66 M/uL (4.33-5.43)
[2021-01-26] MEDS: lisinopriL 10 MG TAB PO SCH (09:00)
[2021-01-26] MEDS: MEDIHONEY 44 ML TOPICAL TUBE TOP SCH (09:00)
[2021-01-26] MEDS: ENOXAPARIN 40 MG/0.4 ML SQ SCH (09:00)
[2021-01-26] MEDS: LACTOBACILLUS/ACIDOPHILUS TAB PO SCH ×2 (09:00→22:23)
[2021-01-26] MEDS: ZINC SULFATE 220 MG CAP PO SCH (09:00)
[2021-01-26] MEDS: SENOSIDES 8.6 MG TAB PO SCH ×2 (09:00→22:23)
[2021-01-26] MEDS: ASCORBIC ACID 500 MG TABLET PO SCH (09:00)
[2021-01-26] MEDS: hydroCHLOROthiazide 12.5 MG CAP PO SCH (09:00)
[2021-01-26] MEDS: VANCOMYCIN 1.75 GM in NA CHLORIDE 0.9% 500 ML IVPB SCH ×3 (09:55→22:24)
[2021-01-26] MEDS ORDERED: LIDOCAINE 2% MPF 5 ML VIAL ONE (09:56)
[2021-01-26] MEDS ORDERED: propofoL 200 MG/20 ML VIAL IV ONE (09:56)
[2021-01-26] MEDS ORDERED: FENTANYL CITR 100 MCG/2 ML ONE (09:57)
[2021-01-26] MEDS ORDERED: BUPIVACAINE 0.25% PF 10 ML VIAL ONE (10:00)
--- NOTE | 2021-01-26 10:38 | P.OP ---
Preoperative diagnosis: Gangrene / Osteomyelitis of 2nd Toe of RIGHT foot, R- plantar foot wound Postoperative diagnosis: Gangrene / Osteomyelitis of 2nd Toe of RIGHT foot, R- plantar foot wound Primary procedure: Amputation of 2nd Phalanx of RIGHT foot Secondary procedure: Debridement of RIGHT foot plantar wound -1st/2nd Metatarsal region Anesthesia: GETA + Local Estimated blood loss: <2cc Specimen: toe + debridement tissue Findings: Gangrene / Osteomyelitis of 2nd Toe of RIGHT foot, R- plantar foot wound Complications: None Transferred to: Recovery Room Condition: Good
[2021-01-26] MEDS ORDERED: SODIUM HYPOCHLORITE 0.25% 473 ML ONE ×2 (10:49→10:51)
[2021-01-26] MEDS ORDERED: KETOROLAC 30 MG/ML INJ ONE (10:53)
[2021-01-26] MEDS: HYDROMORPHONE HCL 1 MG/ML INJ ONE ×2 (10:58→11:10)
[2021-01-26] MEDS ORDERED: LABETALOL 20 MG/4ML SYRINGE IV ONE (11:29)
--- NOTE | 2021-01-26 11:31 | CON ---
Date of Consultation: 01/25/2021 History Of Present Illness: Patient is a 40-year-old type 1 diabetic with a history of gastroparesis and multiple interventions to the right lower extremity with multiple endovascular procedures with d ilatations due to significant calcifications/angioplasties. He presents with a worsening of a foot w ound on his right foot second toe and plantar foot wound on this between the first and second metatar amelia space. He has a great experience with diabetes in his past and realized that this was an infecte d wound as such came to the emergency room with the above-stated complaints when an odor emanated fro m the area and the foot became tender, swollen, and started draining purulent fluid. He has not had any amputations before. He has been attempting wound care on this; however, it appeared to be unsucc essful at this point. Past Medical History: Type 1 diabetic gastroparesis, neuropathy, hyperlipidemia, hypertension. Past Surgical History: Cholecystectomy, gastric stimulator implant, right foot diabetic ulcer balloo n angioplasty of the right lower extremity multiple times. Habits: He denies smoking, alcohol. Denies recreational drug use from a social history standpoint. Review of Systems: Ten-point review of systems other than HPI. Physical Examination: General: He is awake, alert, oriented. Psychiatric: He is appropriate, conversive. HEENT: He is normocephalic. Sclerae icteric. Mucous membranes are moist. Oropharynx clear. Neck: Supple without JVD. Chest: Normal expansion and excursion. Cardiovascular: Regular rate and rhythm. Pulmonary: Clear to auscultation bilaterally. Abdomen: Soft. Extremities: Focused examination of right lower extremity shows a plantar wound approximately 2 cm x 2 cm appear apparently into the plantar fascia on the right foot along the first versus second metat arsal space. In addition, his second toe of the same said foot appears gangrenous. There is an open wound on the top with purulent fluid emanating and an obvious visible interphalangeal joint with pur ulent abscess material emanating from the joint space. Diagnostic Studies: He had imaging performed as well as labs. His laboratory exam revealed a white blood cell count of 7.0, hemoglobin 10.4, hematocrit 38.9, platelet count was 425. His neutrophils w ere 63%. His sodium 141, potassium 3.7, chloride 109, carbon dioxide 21, BUN 10, creatinine 0.5, glu cose was 207. His calcium was 8.2. He had some imaging performed, which included a lower extremity CT officially read as soft tissue wound changes present along the dorsal surface of the second toe at the PIP joint bone destruction of the second proximal and middle phalanx near the PIP joint could be osteomyelitis posttraumatic change a combination soft tissue thickening edema along the plantar soft tissue near the second and fourth MTP joints. No air or foreign body. No bony destruction. Correl ation needed for an exam findings of soft tissue infection at this site. Assessment And Plan: This is a 40-year-old male who presents with a plantar wound of his foot as wel l as osteomyelitic gangrenous changes to the second toe of the right foot. 1.IV fluid hydration. 2.Antibiotic coverage with vancomycin. 3.Continue medical management for pre-existing medical conditions. 4.I have explained risks, benefits, and alternatives of amputation of second toe of the right foot a nd debridement of the plantar foot wound, including but not limited to bleeding, infection, damage to surrounding tissues, need for further operation procedures. Patient agrees to proceed as indicated. Thank you for this interesting consult. TYESHA/ANNA Voice ID: [id number] Report ID: [id number]
--- NOTE | 2021-01-26 11:46 | OP ---
Date of Procedure: 01/26/2021 Surgeon: Darryn Sorenson MD, Preoperative Diagnoses: 1. Gangrene/osteomyelitis, second toe of the right foot. 2. Right plantar foot wound along the midfoot metatarsals. Postoperative Diagnoses: 1. Gangrene/osteomyelitis, second toe of the right foot. 2. Right plantar foot wound along the midfoot metatarsals. Procedures Performed: 1. Amputation of the second phalanx of the right foot. 2. Debridement of the right plantar foot wound along the midfoot metatarsal region. Anesthesia: General endotracheal plus local with 0.25% Marcaine. Estimated Blood Loss: 2 mL. Specimens: Toe and debridement tissues. Findings: Gangrene and osteomyelitis of the second toe of the right foot and right plantar foot wound superficial into the plantar fascia. Complications: None. Disposition: The patient transferred to recovery room in good condition. Procedure In Detail: After informed consent was obtained, patient was brought to the operating room prepped and draped in the usual sterile fashion. After adequate anesthesia achieved, I marked the second toe of the right foot based on a plantar flap and cut through the subcutaneous tissues with a 15-blade. I then circumferentially dissected down to the periosteum and of the proximal phalanx. I then dissected circumferentially down to the joint space and ligated these structures using combination of sharp and blunt dissection as well as electrocautery to remove the entire phalanx. At this point, the tissue was sent off for pathologic examination. Some additional debridement tissue was debrided at this point, which it appears somewhat ischemic. The area was copiously irrigated and the joint space was protected. I then brought over the deep tissue planes using a 3-0 Vicryl suture in interrupted fashion to cover the head of the metatarsal. At this point, the skin was then closed using interrupted 2- 0 nylon suture in interrupted fashion and a sterile dressing placed over top. I then turned my attention to the plantar wound, which was a between the first and second metatarsal space. I debrided sharply with a curette down into the plantar fascia, was approximately 2 cm x 2 cm down by 0.2 cm depth. This was all debrided sharply until ischemic and necrotic tissue was removed down to good bleeding tissue. Hemostasis was achieved with electrocautery. At this point, a sterile dressing placed over top. The patient tolerated the procedure well without evidence of complication and transferred to PACU in good condition. All counts were correct at the end of the case. TYESHA/ANNA Voice ID: [id number] Report ID: [id number] MTDD
--- NOTE | 2021-01-26 12:55 | P.PN ---
Subjective Date of Service: 01/26/21 Chief Complaint: R foot cellulitis Status post right toe wound debridement. No vomiting Physical Examination - Vital Signs Temperature: 98.0 F Blood Pressure: 122/71 Pulse: 87 Respirations: 16 Pulse Ox (%): 94 - Physical Exam General: Alert, In no apparent distress Neck: JVD not distended Respiratory: Clear to auscultation bilaterally, Normal air movement Cardiovascular: Regular rate/rhythm, Normal S1 S2 Gastrointestinal: Soft and benign, Non-distended Musculoskeletal: No swelling Neurological: Normal strength at 5/5 x4 extr - Studies Microbiology Data (last 24 hrs): 01/23/21 01:50 Blood - Blood Aerobic Blood Culture - Final Meth Resistant Staph Aureus 01/23/21 01:50 Blood - Blood Blood Culture Gram Stain - Final 01/23/21 01:50 Blood - Blood Anaerobic Blood Culture - Final Assessment And Plan - Current Problems (Diagnosis) (1) Diabetic foot ulcer Current Visit: Yes Status: Acute (2) Cellulitis of right foot Current Visit: Yes Status: Acute (3) Gastroparesis Current Visit: Yes Status: Acute (4) HTN (hypertension) Current Visit: Yes Status: Chronic Qualifiers: Hypertension type: primary hypertension Qualified Code(s): I10 - Essential (primary) hypertension (5) Neuropathy Current Visit: Yes Status: Chronic (6) Type 1 diabetes Current Visit: Yes Status: Chronic Qualifiers: Diabetes mellitus complication status: with kidney complications Diabetes mellitus complication detail: with chronic kidney disease Chronic kidney disease stage: stage 2 (mild) Qualified Code(s): E10.22 - Type 1 diabetes mellitus with diabetic chronic kidney disease; N18.2 - Chronic kidney disease, stage 2 (mild) - Plan Patient wound is growing MRSA Blood cultures: MRSA. Continue IV vancomycin and IV cefepime given patient is diabetic and increased risk of Gram negative infection too. Repeat blood cultures: No growth to date. Status post debridement. Osteomyelitis is highly likely. Pain management as needed. Echocardiogram result is pending. Seen by Infectious disease. Small frequent meals for gastroparesis suggested. Will consider erythromycin if symptoms persist. Patient has a gastric stimulator. Supportive measures.
[2021-01-26] MEDS ORDERED: HYDROCODONE/APAP 5/325 MG TAB PO PRN (19:28)
[2021-01-26] MEDS: NORTRIPTYLINE HCL 25 MG CAP PO SCH (22:23)
[2021-01-26] MEDS: ROSUVASTATIN 10 MG TAB PO SCH (22:23)
[2021-01-26] MEDS: FAMOTIDINE 20 MG TAB PO SCH (22:23)
[2021-01-26] MEDS: ZOLPIDEM TARTRATE 10 MG TABLET PO PRN (22:37)
[2021-01-27] MEDS: HYDROMORPHONE HCL 1 MG/ML INJ IV PRN ×5 (03:16→20:11)
[2021-01-27] MEDS: PROMETHAZINE INJ 25 MG/ML AMP IV PRN ×3 (03:20→15:52)
[2021-01-27] MEDS: NA CHLORIDE 0.9% 1,000 ML IV SCH ×4 (05:53→19:44)
[2021-01-27 07:23] LABS: Absolute Lymphocytes (CBC) 1.6 K/uL (0.7-4.9); Basophils % 0.5 % (0-1.3); Hematocrit 33.9 % (39.6-49.0); Lymphocytes % 23.6 % (15.3-44.8); MPV 7.3 fL (7.6-11.3); RBC Red Blood Cell Count 3.72 M/uL (4.33-5.43)
[2021-01-27 07:41] LABS: BUN Blood Urea Nitrogen 7 mg/dL (7-18); Bicarbonate 25 mmol/L (21-32); Glucose Level 247 mg/dL (74-106); Potassium 3.5 mmol/L (3.5-5.1); Sodium Level 140 mmol/L (136-145)
[2021-01-27] MEDS: INSULIN -REGULAR HUMAN 50 UNIT/0.5 ML ML SQ SCH ×4 (08:54→20:30)
[2021-01-27] MEDS: hydroCHLOROthiazide 12.5 MG CAP PO SCH (08:55)
[2021-01-27] MEDS: SENOSIDES 8.6 MG TAB PO SCH ×2 (08:55→20:09)
[2021-01-27] MEDS: ASCORBIC ACID 500 MG TABLET PO SCH (08:56)
[2021-01-27] MEDS: ENOXAPARIN 40 MG/0.4 ML SQ SCH (08:56)
[2021-01-27] MEDS: LACTOBACILLUS/ACIDOPHILUS TAB PO SCH ×2 (08:56→20:08)
[2021-01-27] MEDS: lisinopriL 10 MG TAB PO SCH (08:56)
[2021-01-27] MEDS: ZINC SULFATE 220 MG CAP PO SCH (08:56)
[2021-01-27] MEDS: VANCOMYCIN 1.75 GM in NA CHLORIDE 0.9% 500 ML IVPB SCH ×2 (09:01→21:00)
[2021-01-27] MEDS ORDERED: POTASSIUM CL SA 10 MEQ TAB PO ONE ×2 (10:35→11:00)
[2021-01-27] MEDS: ONDANSETRON 4 MG/2 ML VIAL IV PRN ×2 (11:35→20:09)
--- NOTE | 2021-01-27 11:53 | P.PN ---
Subjective Date of Service: 01/27/21 Chief Complaint: R foot cellulitis Status post right toe wound debridement and amputation of the right 2nd toe phalanx for osteomyelitis. No vomiting. Patient is tolerating feeding. Physical Examination - Vital Signs Temperature: 97.2 F Blood Pressure: 145/92 Pulse: 107 Respirations: 17 Pulse Ox (%): 96 - Physical Exam General: Alert, In no apparent distress, Oriented x3 HEENT: Mucous membr. moist/pink Neck: JVD not distended Respiratory: Normal air movement Cardiovascular: Regular rate/rhythm, Normal S1 S2 Gastrointestinal: Soft and benign, Non-distended Musculoskeletal: No swelling, Other (Right foot in dressing.) Neurological: Normal strength at 5/5 x4 extr - Studies Microbiology Data (last 24 hrs): 01/23/21 01:50 Blood - Blood Aerobic Blood Culture - Final Meth Resistant Staph Aureus 01/23/21 01:50 Blood - Blood Blood Culture Gram Stain - Final 01/23/21 01:50 Blood - Blood Anaerobic Blood Culture - Final Assessment And Plan - Current Problems (Diagnosis) (1) Diabetic foot ulcer Current Visit: Yes Status: Acute (2) Cellulitis of right foot Current Visit: Yes Status: Acute (3) Gastroparesis Current Visit: Yes Status: Acute (4) HTN (hypertension) Current Visit: Yes Status: Chronic Qualifiers: Hypertension type: primary hypertension Qualified Code(s): I10 - Essential (primary) hypertension (5) Neuropathy Current Visit: Yes Status: Chronic (6) Type 1 diabetes Current Visit: Yes Status: Chronic Qualifiers: Diabetes mellitus complication status: with kidney complications Diabetes mellitus complication detail: with chronic kidney disease Chronic kidney disease stage: stage 2 (mild) Qualified Code(s): E10.22 - Type 1 diabetes mellitus with diabetic chronic kidney disease; N18.2 - Chronic kidney disease, stage 2 (mild) - Plan Wound Culture: MRSA Blood cultures: MRSA. Continue IV vancomycin. Discontinue IV cefepime. Repeat blood cultures: No growth to date. Status post debridement. Case discussed with Dr. Sorenson. He stated he got the infected bone out. No need for prolonged antibiotics for osteomyelitis. Patient will need 2 weeks of IV vancomycin for MRSA. Infectious disease to assist with antibiotic management. Pain management as needed. Echocardiogram result is pending. Seen by Infectious disease. Small frequent meals for gastroparesis suggested. Patient has a gastric stimulator. He is asking for IV hydromorphone for abdo zulma pain around the clock. Patient was informed hydromorphone can worsen the gastroparesis. Patient requests we continue the IV hydromorphone because it is the only medication that helps his pain. I ordered [place] to use for pain the patient has been declining it stating it causes him to have nausea. Supportive measures. Physician Review: Patient Assessed, Agree with Above Assessment and Plan
--- NOTE | 2021-01-27 17:13 | P.PN ---
Subjective Date of Service: 01/27/21 Chief Complaint: R foot cellulitis Subjective: Improving (Patient has no complaints.) Physical Examination - Vital Signs Temperature: 98.2 F Blood Pressure: 155/95 Pulse: 111 Respirations: 17 Pulse Ox (%): 96 - Physical Exam General: Alert, In no apparent distress, Cooperative Integumentary: Other (RIGHT foot post op wounds are clean, dressing clean and dry) Assessment And Plan - Current Problems (Diagnosis) (1) Osteomyelitis Current Visit: Yes Status: Acute Plan: S/P Amputation of 2nd toe of RIGHT foot, debridement of RIGHT foot - continue daily dressing changes with dakins, santyl - continue medical management - follow up in clinic for suture removal in 1 week Physician Review: Patient Assessed, Agree with Above Assessment and Plan
[2021-01-27] MEDS: ROSUVASTATIN 10 MG TAB PO SCH (20:05)
[2021-01-27] MEDS: ZOLPIDEM TARTRATE 10 MG TABLET PO PRN (20:09)
[2021-01-27] MEDS: NORTRIPTYLINE HCL 25 MG CAP PO SCH (20:09)
[2021-01-27] MEDS: FAMOTIDINE 20 MG TAB PO SCH (20:11)
[2021-01-28] MEDS: HYDROMORPHONE HCL 1 MG/ML INJ IV PRN ×6 (00:14→21:45)
[2021-01-28] MEDS: PROMETHAZINE INJ 25 MG/ML AMP IV PRN ×3 (00:15→17:45)
[2021-01-28] MEDS: ONDANSETRON 4 MG/2 ML VIAL IV PRN (04:16)
[2021-01-28] MEDS: NA CHLORIDE 0.9% 1,000 ML IV SCH ×3 (05:44→21:00)
--- NOTE | 2021-01-28 07:54 | ECHO ---
HEIGHT: 6 ft 1 in WEIGHT: 194 lb 15.982 oz DATE OF STUDY: 01/25/[address]: cielo carlos 2-DIMENSIONAL: YES M.MODE: YES DOPPLER: YES COLOR FLOW: YES TDS: PORTABLE: DEFINITY: BUBBLE STUDY: DIAGNOSIS: MRSA BACTERMIA CARDIAC HISTORY: CATHERIZATION: NO SURGERY: NO PROSTHETIC VALVE: NO PACEMAKER: NO MEASUREMENTS (cm) DIASTOLIC (NORMALS) SYSTOLIC (NORMALS) IVSd 1.0 (0.6-1.2) LA Diam 2.9 (1.9-4.0) LVEF 60-65% LVIDd 4.4 (3.5-5.7) LVIDs 2.6 (2.0-3.5) %FS 40% LVPWd 1.1 (0.6-1.2) Ao Diam 2.6 (2.0-3.7) 2 DIMENSIONAL ASSESSMENT: RIGHT ATRIUM: NORMAL LEFT ATRIUM: NORMAL RIGHT VENTRICLE: NORMAL LEFT VENTRICLE: NORMAL TRICUSPID VALVE: NORMAL MITRAL VALVE: NORMAL PULMONIC VALVE: NORMAL AORTIC VALVE: NORMAL PERICARDIAL EFFUSION: NONE AORTIC ROOT: NORMAL LEFT VENTRICULAR WALL MOTION: NORMAL DOPPLER/COLOR FLOW: NORMAL COMMENTS: NORMAL LEFT VENTRICULAR EJECTION FRACTION 60-65%. NO CLEAR EVIDENCE OF VEGETATION. IF CLINICALLY INDICATED RECOMMEND. TECHNOLOGIST: LUTHER SMITH
[2021-01-28] MEDS: INSULIN -REGULAR HUMAN 50 UNIT/0.5 ML ML SQ SCH ×4 (08:48→21:01)
[2021-01-28] MEDS: hydroCHLOROthiazide 12.5 MG CAP PO SCH (08:50)
[2021-01-28] MEDS: lisinopriL 10 MG TAB PO SCH (08:51)
[2021-01-28] MEDS: LACTOBACILLUS/ACIDOPHILUS TAB PO SCH ×2 (08:51→20:58)
[2021-01-28] MEDS: ZINC SULFATE 220 MG CAP PO SCH (08:51)
[2021-01-28] MEDS: ASCORBIC ACID 500 MG TABLET PO SCH (08:51)
[2021-01-28] MEDS: SENOSIDES 8.6 MG TAB PO SCH ×2 (09:00→21:00)
[2021-01-28] MEDS ORDERED: GLUCAGON 1 MG/VIAL IM PRN (09:11)
[2021-01-28] MEDS ORDERED: D50W 25 GM/50 ML SYRINGE IV PRN (09:11)
[2021-01-28] MEDS: ENOXAPARIN 40 MG/0.4 ML SQ SCH (09:13)
[2021-01-28] MEDS: VANCOMYCIN 1.5 GM in NA CHLORIDE 0.9% 500 ML IVPB SCH ×2 (09:17→21:05)
--- NOTE | 2021-01-28 09:54 | P.PN ---
Subjective Date of Service: 01/28/21 Chief Complaint: R foot cellulitis Subjective: Improving Physical Examination - Vital Signs Temperature: 97.3 F Blood Pressure: 161/98 Pulse: 103 Respirations: 18 Pulse Ox (%): 93 - Physical Exam General: Alert, In no apparent distress, Cooperative Respiratory: Normal air movement Musculoskeletal: Other (wound healing well of RIGHT foot, incision clean, sutures in place) Assessment And Plan - Current Problems (Diagnosis) (1) Osteomyelitis Current Visit: Yes Status: Acute Plan: S/P Amputation of 2nd toe of RIGHT foot, debridement of RIGHT foot - continue daily dressing changes with dakins, santyl - continue medical management - follow up in clinic for suture removal in 1 week - DC home with antibiotics Physician Review: Patient Assessed, Agree with Above Assessment and Plan
--- NOTE | 2021-01-28 12:11 | P.PN ---
Subjective Date of Service: 01/28/21 Chief Complaint: R foot cellulitis Patient seen examined at bedside, doing well no acute complaints. Hemodynamically stable and afebrile, repeat blood cultures performed on 01/24 show no growth. Review of Systems 10-point ROS is otherwise unremarkable Physical Examination - Vital Signs Temperature: 97.3 F Blood Pressure: 161/98 Pulse: 103 Respirations: 18 Pulse Ox (%): 93 Assessment And Plan - Plan Physical Exam: General: Alert, In no apparent distress, Oriented x3 HEENT: Normocephalic Neck: Supple, 2+ carotid pulse no bruit Respiratory: Clear to auscultation bilaterally, Normal air movement Cardiovascular: No edema, Normal pulses Gastrointestinal: Hypoactive, Tenderness Musculoskeletal: No clubbing, No swelling Integumentary: Diabetic ulcer (Diabetic ulcer to right foot, s/p amputation of right second toe Neurological: Normal gait, Normal speech Conclusions/Impression: Antibiotics: Vancomycin Start: 01/23 Stop: 02/06 Indication: MRSA bacteremia Assessment/plan Right foot diabetic foot ulcer Patient underwent amputation of right 2nd toe on 01/26. The bone concerning for osteomyelitis removed, source infection controlled. Wound care per surgery team. Keep legs elevated at all times. Continue broad-spectrum IV antibiotics. Patient started on vitamins to promote wound healing: Vitamin-D, zinc. Continue to trend inflammatory markers: CRP 132, procal 0.12, ESR greater than 140. Bacteremia Blood cultures performed on 01/23 growing MRSA, source of infection infected right diabetic foot ulcer. Repeat blood culture showed no growth. Patient will need antibiotics for 2 weeks following a negative blood culture report. Due to MRSA bacteremia patient will also need echocardiogram. Patient started on vancomycin, trough goal of 15-20. Continue to monitor vancomycin trough and renal function. Patient started on probiotic. Diabetes mellitus type 1 Most recent hemoglobin A1c of 11.9. Continue sliding scale insulin, strict glucose monitoring needed for proper wound healing. protein caloric malnutrition Low albumin: 2.5. Recommend supplemental Glucerna drinks. Anemia Continue to monitor H&H Medical management per primary team Continue monitor CBC and BMP Continue to monitor for signs infection Plan of care discussed with Dr. enamorado Physician Review: Patient Assessed, Agree with Above Assessment and Plan
--- NOTE | 2021-01-28 15:59 | P.PN ---
Subjective Date of Service: 01/28/21 Chief Complaint: R foot cellulitis Patient doing better today. He is tolerating his meals. Blood sugar readings are elevated. No vomiting. Physical Examination - Vital Signs Temperature: 97.3 F Blood Pressure: 161/98 Pulse: 103 Respirations: 18 Pulse Ox (%): 93 - Physical Exam General: Alert, In no apparent distress HEENT: Mucous membr. moist/pink Neck: JVD not distended Respiratory: Clear to auscultation bilaterally, Normal air movement Cardiovascular: No edema, Regular rate/rhythm, Normal S1 S2 Gastrointestinal: Normal bowel sounds, Soft and benign, Non-distended, No tenderness Musculoskeletal: No swelling, Other (Right foot in dressing.) Neurological: Normal strength at 5/5 x4 extr Assessment And Plan - Current Problems (Diagnosis) (1) Diabetic foot ulcer Current Visit: Yes Status: Acute (2) Cellulitis of right foot Current Visit: Yes Status: Acute (3) Gastroparesis Current Visit: Yes Status: Acute (4) HTN (hypertension) Current Visit: Yes Status: Chronic Qualifiers: Hypertension type: primary hypertension Qualified Code(s): I10 - Essential (primary) hypertension (5) Neuropathy Current Visit: Yes Status: Chronic (6) Type 1 diabetes Current Visit: Yes Status: Chronic Qualifiers: Diabetes mellitus complication status: with kidney complications Diabetes mellitus complication detail: with chronic kidney disease Chronic kidney disease stage: stage 2 (mild) Qualified Code(s): E10.22 - Type 1 diabetes mellitus with diabetic chronic kidney disease; N18.2 - Chronic kidney disease, stage 2 (mild) - Plan Wound Culture: MRSA Blood cultures: MRSA. Repeat Blood culture; 01/24: No growth to date Continue IV vancomycin. Status post debridement. Case discussed with Dr. Sorenson. Dr. Sorenson stated he got the infected bone out. No need for prolonged antibiotics for osteomyelitis. Patient will need 2 weeks of IV vancomycin for MRSA. PICC line requested for outpatient IV antibiotics. Infectious disease is following. Echocardiogram: Unremarkable, no vegetation noted. Patient has a gastric stimulator for gastroparesis.
[2021-01-28] MEDS: NORTRIPTYLINE HCL 25 MG CAP PO SCH (20:58)
[2021-01-28] MEDS: FAMOTIDINE 20 MG TAB PO SCH (20:59)
[2021-01-28] MEDS: ROSUVASTATIN 10 MG TAB PO SCH (20:59)
[2021-01-28] MEDS: INSULIN GLARGINE 100 UNITS/ML SQ SCH (21:01)
[2021-01-28] MEDS: ZOLPIDEM TARTRATE 10 MG TABLET PO PRN (21:05)
[2021-01-29] MEDS: PROMETHAZINE INJ 25 MG/ML AMP IV PRN ×3 (01:41→18:20)
[2021-01-29] MEDS: HYDROMORPHONE HCL 1 MG/ML INJ IV PRN ×6 (01:44→21:57)
[2021-01-29 06:16] LABS: Absolute Lymphocytes (CBC) 1.6 K/uL (0.7-4.9); Basophils % 0.5 % (0-1.3); Hematocrit 34.9 % (39.6-49.0); Lymphocytes % 17.1 % (15.3-44.8); MPV 7.2 fL (7.6-11.3); RBC Red Blood Cell Count 3.83 M/uL (4.33-5.43)
[2021-01-29 06:36] LABS: BUN Blood Urea Nitrogen 9 mg/dL (7-18); Bicarbonate 27 mmol/L (21-32); Glucose Level 210 mg/dL (74-106); Potassium 3.5 mmol/L (3.5-5.1); Sodium Level 139 mmol/L (136-145)
[2021-01-29] MEDS: INSULIN -REGULAR HUMAN 50 UNIT/0.5 ML ML SQ SCH ×4 (07:30→21:00)
[2021-01-29] MEDS: lisinopriL 10 MG TAB PO SCH (09:00)
[2021-01-29] MEDS: hydroCHLOROthiazide 12.5 MG CAP PO SCH (09:00)
[2021-01-29] MEDS: VANCOMYCIN 1.5 GM in NA CHLORIDE 0.9% 500 ML IVPB SCH ×2 (09:00→22:02)
[2021-01-29] MEDS: ENOXAPARIN 40 MG/0.4 ML SQ SCH (09:00)
[2021-01-29] MEDS: SENOSIDES 8.6 MG TAB PO SCH ×2 (09:00→21:00)
[2021-01-29] MEDS: LACTOBACILLUS/ACIDOPHILUS TAB PO SCH ×2 (09:00→21:51)
[2021-01-29] MEDS: ZINC SULFATE 220 MG CAP PO SCH (09:00)
[2021-01-29] MEDS: ASCORBIC ACID 500 MG TABLET PO SCH (09:00)
[2021-01-29] MEDS ORDERED: POTASSIUM CL SA 10 MEQ TAB PO ONE (09:00)
--- NOTE | 2021-01-29 09:21 | P.PN ---
Subjective Date of Service: 01/29/21 Chief Complaint: R foot cellulitis Subjective: No new changes (R foot - no new complaints, wrapped, pain tolerable. continues with abd pain and nausea/vomiting. mostly associated with trying to eat/drink, however, he states happens several hours later as well. has had several episodes like this in the past. dilaudid helps.) Review of Systems 10-point ROS is otherwise unremarkable Physical Examination - Vital Signs Temperature: 97.8 F Blood Pressure: 189/111 Pulse: 104 Respirations: 18 Pulse Ox (%): 96 Assessment & Plan Physician Review Additional Text: Physical Exam General: AOx3, appears uncomfortable HEENT: normal conjunctiva, sclera anicteric Respiratory: Clear to auscultation bilaterally, Normal air movement Cardiovascular: Regular rate/rhythm, Normal S1 S2, no edema Gastrointestinal: soft, mild-mod tenderness to palpation in LUQ / L epigastrium, non-distended Skin: R foot/toes with dressing in place: c/d/i Neurological: Normal strength at 5/5 x4 extr Problem List R Diabetic foot ulcer swith osteomyelitis s/p amputation/debridement Type 1 DM, insulin dependent with peripheral neuropathy Gastroparesis, chronic Nausea, LUQ abdominal pain Hypertension Wound Culture: MRSA Blood cultures: MRSA. Repeat Blood culture; 01/24: No growth to date Continue IV vancomycin. ID consulted - recommend 2 weeks IV antibiotics. Echo without vegetation PICC ordered, waiting on placement, pt will go home with home health/abx s/p amputation/debridement by Dr. Sorenson - stated he got the infected bone out, no need for prolonged antibiotics for osteomyelitis Patient has a gastric stimulator for gastroparesis. states he gets these gastroparesis episodes / "flare ups" and has crampy pain with them had bad reactions to reglan /compazine due to involuntary muscle movements currently only taking IV dilaudid for pain, states norco made his stomach upset ~[address] Marte, GI, consulted for further assistance, this has not resolved in the last few days CT on admission negative for acute pathology in abdomen, Lipase on admission negative will check KUB to eval stool burden, re-check lipase Dispo: anticipate dc home in ~1-2 days, awaiting PICC and ability to tolerate PO / pain control Time Spent Managing Pts Care (In Minutes): 35
--- NOTE | 2021-01-29 11:26 | RAD REPORT ---
EXAM DESCRIPTION: RAD - Abdomen 1 View (KUB) - 01/29/2021 11:15 am CLINICAL HISTORY: eval stool burden, LUQ pain Pain COMPARISON: No comparisons FINDINGS: The bowel gas pattern is non-obstructive. No evidence of free air or pneumatosis. Moderate stool is seen throughout the colon. No significant bony findings. Stimulator device is present. Cholecystectomy noted. IMPRESSION: Moderate constipation.
[2021-01-29] MEDS: NA CHLORIDE 0.9% 1,000 ML IV SCH ×2 (11:44→18:19)
--- NOTE | 2021-01-29 11:45 | P.PN ---
Subjective Date of Service: 01/29/21 Chief Complaint: R foot cellulitis Subjective: Improving (Patient has no complaints.) Physical Examination - Vital Signs Temperature: 97.8 F Blood Pressure: 189/111 Pulse: 104 Respirations: 18 Pulse Ox (%): 96 - Physical Exam General: Alert, In no apparent distress, Cooperative Musculoskeletal: Other (wound is healing well, sutures in place, wound packed) Assessment And Plan - Current Problems (Diagnosis) (1) Osteomyelitis Current Visit: Yes Status: Acute Plan: S/P Amputation of 2nd toe of RIGHT foot, debridement of RIGHT foot - continue daily dressing changes with dakins, santyl - continue medical management - follow up in clinic for suture removal in 1 week - DC home with antibiotics Physician Review: Patient Assessed, Agree with Above Assessment and Plan Physician Review Additional Text: Physical Exam General: AOx3, appears uncomfortable HEENT: normal conjunctiva, sclera anicteric Respiratory: Clear to auscultation bilaterally, Normal air movement Cardiovascular: Regular rate/rhythm, Normal S1 S2, no edema Gastrointestinal: soft, mild-mod tenderness to palpation in LUQ / L epigastrium, non-distended Skin: R foot/toes with dressing in place: c/d/i Neurological: Normal strength at 5/5 x4 extr Problem List R Diabetic foot ulcer swith osteomyelitis s/p amputation/debridement Type 1 DM, insulin dependent with peripheral neuropathy Gastroparesis, chronic Nausea, LUQ abdominal pain Hypertension Wound Culture: MRSA Blood cultures: MRSA. Repeat Blood culture; 01/24: No growth to date Continue IV vancomycin. ID consulted - recommend 2 weeks IV antibiotics. Echo without vegetation PICC ordered, waiting on placement, pt will go home with home health/abx s/p amputation/debridement by Dr. Sorenson - stated he got the infected bone out, no need for prolonged antibiotics for osteomyelitis Patient has a gastric stimulator for gastroparesis. states he gets these gastroparesis episodes / "flare ups" and has crampy pain with them had bad reactions to reglan /compazine due to involuntary muscle movements currently only taking IV dilaudid for pain, states norco made his stomach upset ~[address] Marte, GI, consulted for further assistance, this has not resolved in the last few days CT on admission negative for acute pathology in abdomen, Lipase on admission negative will check KUB to eval stool burden, re-check lipase Dispo: anticipate dc home in ~1-2 days, awaiting PICC and ability to tolerate PO / pain control
--- NOTE | 2021-01-29 11:50 | P.PN ---
Subjective Date of Service: 01/29/21 Chief Complaint: R foot cellulitis Patient seen examined at bedside, complaining of nausea and vomiting. KUB pending. PICC line pending. Review of Systems 10-point ROS is otherwise unremarkable Physical Examination - Vital Signs Temperature: 97.8 F Blood Pressure: 189/111 Pulse: 104 Respirations: 18 Pulse Ox (%): 96 - Studies Laboratory Last Values WBC 12.10 K/uL (4.3-10.9) H 01/23/21 02:05 RBC 3.85 M/uL (4.33-5.43) L 01/23/21 02:05 Hgb 12.0 g/dL (13.6-17.9) L 01/23/21 02:05 Hct 35.3 % (39.6-49.0) L 01/23/21 02:05 MCV 91.6 fL (80-100) 01/23/21 02:05 MCH 31.2 pg (27.0-35.0) 01/23/21 02:05 MCHC 34.1 g/dL (32.0-36.0) 01/23/21 02:05 RDW 12.2 % (12.1-15.2) 01/23/21 02:05 Plt Count 453 K/uL (152-406) H 01/23/21 02:05 MPV 8.3 fL (7.6-11.3) 01/23/21 02:05 Neutrophils % 73.9 % (41.7-73.7) H 01/23/21 02:05 Lymphocytes % 15.5 % (15.3-44.8) 01/23/21 02:05 Monocytes % 9.8 % (3.3-12.3) 01/23/21 02:05 Eosinophils % 0.2 % (0-4.4) 01/23/21 02:05 Basophils % 0.6 % (0-1.3) 01/23/21 02:05 Absolute Neutrophils 8.9 K/uL (1.8-8.0) H 01/23/21 02:05 Absolute Lymphocytes 1.9 K/uL (0.7-4.9) 01/23/21 02:05 Absolute Monocytes 1.2 K/uL (0.1-1.3) 01/23/21 02:05 Absolute Eosinophils 0.0 K/uL (0-0.5) 01/23/21 02:05 Absolute Basophils 0.1 K/uL (0-0.5) 01/23/21 02:05 Sodium 139 mmol/L (136-145) 01/23/21 02:05 Potassium 3.9 mmol/L (3.5-5.1) 01/23/21 02:05 Chloride 103 mmol/L (98-107) 01/23/21 02:05 Carbon Dioxide 24 mmol/L (21-32) 01/23/21 02:05 BUN 24 mg/dL (7-18) H 01/23/21 02:05 Creatinine 1.24 mg/dL (0.55-1.3) 01/23/21 02:05 Estimated GFR 65 mL/min (=/>90) L 01/23/21 02:05 Glucose 267 mg/dL (74-106) H 01/23/21 02:05 POC Glucose 261 mg/dL (65-120) H 01/23/21 02:03 Hemoglobin A1c 11.9 % (4.2-6.3) H 01/23/21 02:05 Lactic Acid 2.7 mmol/L (0.4-2.0) H 01/23/21 02:05 Calcium 9.7 mg/dL (8.5-10.1) 01/23/21 02:05 Total Bilirubin 0.3 mg/dL (0.2-1.0) 01/23/21 02:05 Direct Bilirubin 0.1 mg/dL (0-0.2) 01/23/21 02:05 AST 8 U/L (15-37) L 01/23/21 02:05 ALT 24 U/L (12-78) 01/23/21 02:05 Alkaline Phosphatase 102 U/L (45-117) 01/23/21 02:05 C-Reactive Protein 132.00 mg/L (<3.00) H 01/23/21 02:05 Serum Total Protein 8.8 g/dL (6.4-8.2) H 01/23/21 02:05 Albumin 3.4 g/dL (3.4-5.0) 01/23/21 02:05 Globulin 5.4 g/dL (2.3-3.5) H 01/23/21 02:05 Albumin/Globulin Ratio 0.6 (1.1-1.8) L 01/23/21 02:05 Lipase 73 U/L (73-393) 01/23/21 02:05 Procalcitonin 0.12 ng/mL (<0.050) H 01/23/21 02:05 Assessment And Plan - Plan Physical Exam: General: Alert, In no apparent distress, Oriented x3 HEENT: Normocephalic Neck: Supple, 2+ carotid pulse no bruit Respiratory: Clear to auscultation bilaterally, Normal air movement Cardiovascular: No edema, Normal pulses Gastrointestinal: Hypoactive, Tenderness Musculoskeletal: No clubbing, No swelling Integumentary: Diabetic ulcer (Diabetic ulcer to right foot, s/p amputation of right second toe Neurological: Normal gait, Normal speech Conclusions/Impression: Antibiotics: Vancomycin Start: 01/23 Stop: 02/06 Indication: MRSA bacteremia Assessment/plan Right foot diabetic foot ulcer Patient underwent amputation of right 2nd toe on 01/26. The bone concerning for osteomyelitis has been removed, source infection controlled. Wound care per surgery team. Keep legs elevated at all times. Continue broad-spectrum IV antibiotics. Patient started on vitamins to promote wound healing: Vitamin-D, zinc. Continue to trend inflammatory markers: CRP 132, procal 0.12, ESR greater than 140. Bacteremia Blood cultures performed on 01/23 growing MRSA, source of infection infected right diabetic foot ulcer. Repeat blood culture showed no growth. Patient will need antibiotics for 2 weeks following a negative blood culture report. Due to MRSA bacteremia patient will also need echocardiogram. Patient started on vancomycin, trough goal of 15-20. Continue to monitor vancomycin trough and renal function. Patient started on probiotic. Diabetes mellitus type 1 Most recent hemoglobin A1c of 11.9. Continue sliding scale insulin, strict glucose monitoring needed for proper wound healing. protein caloric malnutrition Low albumin: 2.5. Recommend supplemental Glucerna drinks. Anemia Continue to monitor H&H Medical management per primary team Continue monitor CBC and BMP Continue to monitor for signs infection Plan of care discussed with Dr. enamorado Physician Review: Patient Assessed, Agree with Above Assessment and Plan
[2021-01-29] MEDS ORDERED: SODIUM CHLORIDE 0.9% 10ML INJ IV PRN (14:08)
[2021-01-29] MEDS: NORTRIPTYLINE HCL 25 MG CAP PO SCH (21:51)
[2021-01-29] MEDS: ROSUVASTATIN 10 MG TAB PO SCH (21:51)
[2021-01-29] MEDS: FAMOTIDINE 20 MG TAB PO SCH (21:51)
[2021-01-29] MEDS: PANTOPRAZOLE 40 MG INJ IVP SCH (21:54)
[2021-01-29] MEDS: ZOLPIDEM TARTRATE 10 MG TABLET PO PRN (21:56)
[2021-01-29] MEDS: INSULIN GLARGINE 100 UNITS/ML SQ SCH (22:01)
[2021-01-30] MEDS: PROMETHAZINE INJ 25 MG/ML AMP IV PRN ×3 (02:04→18:06)
[2021-01-30] MEDS: HYDROMORPHONE HCL 1 MG/ML INJ IV PRN ×6 (02:05→22:00)
[2021-01-30 05:38] LABS: Hematocrit 30.7 % (39.6-49.0); MPV 6.9 fL (7.6-11.3); RBC Red Blood Cell Count 3.37 M/uL (4.33-5.43)
[2021-01-30 05:55] LABS: BUN Blood Urea Nitrogen 7 mg/dL (7-18); Bicarbonate 29 mmol/L (21-32); Glucose Level 295 mg/dL (74-106); Potassium 2.8 mmol/L (3.5-5.1); Sodium Level 142 mmol/L (136-145)
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
[2021-01-30] MEDS: KCL 20 MEQ/100 mL IVPB 20 MEQ/100 ML BAG IV SCH ×3 (06:43→11:16)
[2021-01-30] MEDS: INSULIN -REGULAR HUMAN 50 UNIT/0.5 ML ML SQ SCH ×4 (07:30→21:37)
[2021-01-30] MEDS: NA CHLORIDE 0.9% 1,000 ML IV SCH ×3 (07:44→14:53)
[2021-01-30] MEDS ORDERED: NA CHLORIDE 0.9% 1,000 ML ONE (08:25)
[2021-01-30] MEDS ORDERED: propofoL 200 MG/20 ML VIAL IV ONE ×2 (08:38→10:16)
[2021-01-30] MEDS ORDERED: LIDOCAINE 1% MPF 5 ML VIAL ONE ×2 (08:38→10:16)
[2021-01-30] MEDS: LACTOBACILLUS/ACIDOPHILUS TAB PO SCH ×2 (08:42→21:29)
[2021-01-30] MEDS: hydroCHLOROthiazide 12.5 MG CAP PO SCH (08:42)
[2021-01-30] MEDS: SENOSIDES 8.6 MG TAB PO SCH ×2 (08:43→21:00)
[2021-01-30] MEDS: ASCORBIC ACID 500 MG TABLET PO SCH (08:43)
[2021-01-30] MEDS: ZINC SULFATE 220 MG CAP PO SCH (08:43)
[2021-01-30] MEDS: ENOXAPARIN 40 MG/0.4 ML SQ SCH (08:43)
[2021-01-30] MEDS: lisinopriL 10 MG TAB PO SCH (08:43)
[2021-01-30] MEDS: PANTOPRAZOLE 40 MG INJ IVP SCH ×2 (08:43→21:33)
[2021-01-30] MEDS: VANCOMYCIN 1.75 GM in NA CHLORIDE 0.9% 500 ML IVPB SCH ×2 (09:00→21:40)
--- NOTE | 2021-01-30 10:14 | ENDO RPT ---
[address], [address] EGD PROCEDURE REPORT EXAM DATE: 01/30/2021 PATIENT NAME: Christian Lee MR#: [id number] BIRTHDATE: 1980 ATTENDING: Hector Marte Dr STATUS: inpatient - 7 OIL EXPERT: Dayanna Knutson RN and Alejandra Leos CST INDICATIONS: The patient is a 40 yr old Male here for an EGD due to mid epigastric abdominal pain and nausea and vomiting PROCEDURE PERFORMED: EGD with biopsy MEDICATIONS: Per Anesthesia. TOPICAL ANESTHETIC: none CONSENT: The patient understands the risks and benefits of the procedure and understands that these risks include, but are not limited to: sedation, allergic reaction, infection, perforation and/or bleeding. Alternative means of evaluation and treatment include, among others: physical exam, x-rays, and/or surgical intervention. The patient elects to proceed with this endoscopic procedure. DESCRIPTION OF PROCEDURE: During intra-op preparation period all mechanical medical equipment was checked for proper function. Hand hygiene and appropriate measures for infection prevention was taken. Procedure, possible complications, and alternatives including but not limited to the possibility of bleeding, perforation, tear, infection, sepsis, need for surgery, need for blood transfusion, and anesthesia related complications were explained to the patient. After the risks, benefits and alternatives of the procedure were thoroughly explained, Informed consent was verified, confirmed and timeout was successfully executed by the treatment team. The patient was placed in the left lateral position. The patient was anesthetized with topical anesthesia. Through the anesthetized oropharyngeal area, the scope was passed without any difficulty. The [id number] ([id number]) endoscope was introduced through the mouth and advanced to the third portion of the duodenum. Retroflexed views revealed a moderate sized hiatal hernia. The gastroscope was then slowly withdrawn and removed. LA Class A esophagitis was found in the lower esophagus. A moderate sized hiatal hernia was found Mild gastritis was found in the antrum. Multiple biopsies were obtained and sent to pathology. Duodenitis was found in the bulb of the duodenum. ADVERSE EVENTS: There were no complications. IMPRESSIONS: 1. LA class A esophagitis in the lower esophagus 2. Moderate sized hiatal hernia 3. Mild gastritis in the antrum, s/p biopsies 4. Duodenitis in the bulb of the duodenum RECOMMENDATIONS: 1. await biopsy results 2. acid suppression therapy REPEAT EXAM: Hector Marte Dr eSigned: Hector Marte Dr 01/30/2021 10:14 AM cc: CPT CODES: ICD9 CODES: PATIENT NAME: Christian Lee MR#: [id number]
--- NOTE | 2021-01-30 11:00 | P.PN ---
Subjective Date of Service: 01/30/21 Chief Complaint: R foot cellulitis Patient seen examined at bedside, vancomycin trough taken on 01/29 was 6.8, likely not an actor trough as a trough taken on 01/27 was 18.8. Nonetheless dose change via pharmacy. Continue to monitor trough and renal function. Review of Systems 10-point ROS is otherwise unremarkable Physical Examination - Vital Signs Temperature: 97.3 F Blood Pressure: 142/81 Pulse: 99 Respirations: 16 Pulse Ox (%): 96 - Studies Laboratory Last Values WBC 12.10 K/uL (4.3-10.9) H 01/23/21 02:05 RBC 3.85 M/uL (4.33-5.43) L 01/23/21 02:05 Hgb 12.0 g/dL (13.6-17.9) L 01/23/21 02:05 Hct 35.3 % (39.6-49.0) L 01/23/21 02:05 MCV 91.6 fL (80-100) 01/23/21 02:05 MCH 31.2 pg (27.0-35.0) 01/23/21 02:05 MCHC 34.1 g/dL (32.0-36.0) 01/23/21 02:05 RDW 12.2 % (12.1-15.2) 01/23/21 02:05 Plt Count 453 K/uL (152-406) H 01/23/21 02:05 MPV 8.3 fL (7.6-11.3) 01/23/21 02:05 Neutrophils % 73.9 % (41.7-73.7) H 01/23/21 02:05 Lymphocytes % 15.5 % (15.3-44.8) 01/23/21 02:05 Monocytes % 9.8 % (3.3-12.3) 01/23/21 02:05 Eosinophils % 0.2 % (0-4.4) 01/23/21 02:05 Basophils % 0.6 % (0-1.3) 01/23/21 02:05 Absolute Neutrophils 8.9 K/uL (1.8-8.0) H 01/23/21 02:05 Absolute Lymphocytes 1.9 K/uL (0.7-4.9) 01/23/21 02:05 Absolute Monocytes 1.2 K/uL (0.1-1.3) 01/23/21 02:05 Absolute Eosinophils 0.0 K/uL (0-0.5) 01/23/21 02:05 Absolute Basophils 0.1 K/uL (0-0.5) 01/23/21 02:05 Sodium 139 mmol/L (136-145) 01/23/21 02:05 Potassium 3.9 mmol/L (3.5-5.1) 01/23/21 02:05 Chloride 103 mmol/L (98-107) 01/23/21 02:05 Carbon Dioxide 24 mmol/L (21-32) 01/23/21 02:05 BUN 24 mg/dL (7-18) H 01/23/21 02:05 Creatinine 1.24 mg/dL (0.55-1.3) 01/23/21 02:05 Estimated GFR 65 mL/min (=/>90) L 01/23/21 02:05 Glucose 267 mg/dL (74-106) H 01/23/21 02:05 POC Glucose 261 mg/dL (65-120) H 01/23/21 02:03 Hemoglobin A1c 11.9 % (4.2-6.3) H 01/23/21 02:05 Lactic Acid 2.7 mmol/L (0.4-2.0) H 01/23/21 02:05 Calcium 9.7 mg/dL (8.5-10.1) 01/23/21 02:05 Total Bilirubin 0.3 mg/dL (0.2-1.0) 01/23/21 02:05 Direct Bilirubin 0.1 mg/dL (0-0.2) 01/23/21 02:05 AST 8 U/L (15-37) L 01/23/21 02:05 ALT 24 U/L (12-78) 01/23/21 02:05 Alkaline Phosphatase 102 U/L (45-117) 01/23/21 02:05 C-Reactive Protein 132.00 mg/L (<3.00) H 01/23/21 02:05 Serum Total Protein 8.8 g/dL (6.4-8.2) H 01/23/21 02:05 Albumin 3.4 g/dL (3.4-5.0) 01/23/21 02:05 Globulin 5.4 g/dL (2.3-3.5) H 01/23/21 02:05 Albumin/Globulin Ratio 0.6 (1.1-1.8) L 01/23/21 02:05 Lipase 73 U/L (73-393) 01/23/21 02:05 Procalcitonin 0.12 ng/mL (<0.050) H 01/23/21 02:05 Assessment And Plan - Plan Physical Exam: General: Alert, In no apparent distress, Oriented x3 HEENT: Normocephalic Neck: Supple, 2+ carotid pulse no bruit Respiratory: Clear to auscultation bilaterally, Normal air movement Cardiovascular: No edema, Normal pulses Gastrointestinal: Hypoactive, Tenderness Musculoskeletal: No clubbing, No swelling Integumentary: Diabetic ulcer (Diabetic ulcer to right foot, s/p amputation of right second toe Neurological: Normal gait, Normal speech Conclusions/Impression: Antibiotics: Vancomycin Start: 01/23 Stop: 02/06 Indication: MRSA bacteremia Assessment/plan Right foot diabetic foot ulcer Patient underwent amputation of right 2nd toe on 01/26. The bone concerning for osteomyelitis has been removed, source infection controlled. Wound care per surgery team. Keep legs elevated at all times. Continue broad-spectrum IV antibiotics. Patient started on vitamins to promote wound healing: Vitamin-D, zinc. Continue to trend inflammatory markers: CRP 132, procal 0.12, ESR greater than 140. Bacteremia Blood cultures performed on 01/23 growing MRSA, source of infection infected right diabetic foot ulcer. Repeat blood culture showed no growth. Patient will need antibiotics for 2 weeks following a negative blood culture report. Due to MRSA bacteremia patient will also need echocardiogram. Patient started on vancomycin, trough goal of 15-20. Continue to monitor vancomycin trough and renal function. Patient started on probiotic. Diabetes mellitus type 1 Most recent hemoglobin A1c of 11.9. Continue sliding scale insulin, strict glucose monitoring needed for proper wound healing. protein caloric malnutrition Low albumin: 2.5. Recommend supplemental Glucerna drinks. Anemia Continue to monitor H&H Medical management per primary team Continue monitor CBC and BMP Continue to monitor for signs infection Plan of care discussed with Dr. enamorado Physician Review: Patient Assessed, Agree with Above Assessment and Plan
--- NOTE | 2021-01-30 12:12 | RAD REPORT ---
EXAM DESCRIPTION: RAD - Chest Single View - 01/30/2021 11:49 am CLINICAL HISTORY: picc line placement COMPARISON: Abdomen 1 View (KUB) dated 01/29/2021 FINDINGS: Lines: Right subclavian approach PICC placement with tip overlying the distal SVC. Lungs: No evidence of edema or pneumonia. Pleural: No significant pleural effusions or pneumothorax. Cardiac: The heart size is within normal limits. Bones: No acute fractures. Other: IMPRESSION: No acute cardiopulmonary disease. PICC in satisfactory position overlying the distal SVC .
--- NOTE | 2021-01-30 14:18 | CON ---
Date of Consultation: 01/30/2021 Reason For Consultation: Midepigastric, nausea, vomiting consistent with his prior gastroparesis flare symptoms. History Of Present Illness: The patient is a 40-year-old male with history of diabetes type 1 since the age of 14, gastroparesis and gastric neurostimulator implantation in 2013. The patient presented to hospital with right foot cellulitis, found to have right osteomyelitis infection of his foot with white count of 12, lactate of 2.7. The patient is noted to have a flare of his gastroparesis with his typical symptoms of severe midepigastric pain 02/24, associated with nausea, vomiting, and a glucose he reports were between 180 and 250. Once again, he has type 1 diabetes since the age of 14. 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 The patient is somewhat somber and decreased mood about his diabetes and his complications including his chronic gastroparesis and now diabetic neuropathy and vascular insufficiency of the right lower extremity positive in his second toe on his right foot to be amputated 4 days ago on Thursday, on January 26, 2021. We have been asked to see patient to help with his gastroparesis. Company has been called and medical personnel in the [facility] had been called and appears that he has a gastric stimulator placed in 2013. It is thought that at this time approximately 7 years since his implanted battery has worn out and is no longer working. He was refuse transfer to tertiary center where they could replace the battery, so he is here with us, and we will have to deal with his gastroparesis flare here. Upon discharge, he will be able to go to the [facility] to have his gastric stimulator battery replaced and functional. Past Medical History: 1. Significant for type 1 diabetes since the age of 14. 2. Diabetic neuropathy, especially of the right lower extremity. 3. Diabetic gastroparesis. 4. Peripheral vascular disease and neuropathy of the right lower extremity. 5. Right foot ulcer with debridement and now with second digit removed from the right foot. 6. Hypertension. 7. Hyperlipidemia. 8. Laparoscopic cholecystectomy in 2015. 9. Gastric stimulator placed 2013, right second toe removed on January 26, 2021. Family History: Significant for father alive with diabetes. Mother alive with diabetes, hypertension, renal cancer requiring nephrectomy of 1 kidney. 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 He is x3. He has 1 son who is 17 years old, who still lives in the [place], appears with his mother. He denies any tobacco or alcohol use. Review of Systems: The patient has midepigastric pain, nausea, vomiting. He has a right toe calf pain with exudate and foul smell leading to his surgery for gangrenous right second toe with osteomyelitis noted. Denies any melena, hematochezia, hematemesis, coffee-ground emesis, hematuria, dysuria, polydipsia, chest pain, shortness of breath, seizures, syncope, lower extremity edema, muscle aches. He does have some joint aches in the foot of lower extremity, but no fevers or chills. He does have some decreased mood and anxiety over his condition previously. Physical Examination: Vital Signs: The patient's temperature 97.3 degrees Fahrenheit, pulse 91, respirations 18, blood pressure 143/77, O2 saturation 94%. He is 6 feet 1 inch, 194 pounds with the BMI of 25.7 kg/m2. HEENT: Normocephalic, atraumatic. Anicteric. Pupils equal, round, and reactive to light. Extraocular movements are intact. Oropharynx clear. Neck: Supple. No masses. Respirations: Clear to auscultation bilaterally. Cardiac: Regular rate and rhythm. No gallops or rubs. Abdomen: Positive bowel sounds. Soft, nondistended. Some mild midepigastric tenderness. No peritoneal or Richey sign. No rebound. Extremities: No clubbing or cyanosis. There was surgical dressing on the right foot secondary to right toe amputation recently 4 days ago. He has sensation decreased in lower extremities. Neuro: Alert and oriented x3, with sensation decreased in lower extremities. Able to move all extremities well though. Laboratory Data: The patient has white count of 6.3, hemoglobin 10.5, hematocrit 30.7, MCV of 91, platelet count of 505. Sodium 139, potassium 3.5 yesterday and chloride 106, bicarb 27, creatinine of 0.64, glucose 210, calcium 9.3, lipase 40. Vanc trough 6.8. COVID testing negative. CT abdomen and pelvis was negative. Echocardiogram showed a normal left ventricular ejection fraction of 60% to 65%, otherwise negative. Impression: Gastroparesis flare with typical severe midepigastric pain 10/10, nausea, vomiting. Glucose has been anywhere from 180 to 250, type 1 diabetes since 14 years of age, needs control. He cannot tolerate Reglan and prior adverse reaction of that. Gastric stimulator does not work. It has been 7 years since it has been placed and needs battery to be replaced once he is out of the hospital at tertiary center / [facility], which has refuse transferred at this point in the hospital. History of diabetes type 1, diabetic gastroparesis, gastric neurostimulator placed in 2013 with battery nonfunctional now. Probably hypertension, hyperlipidemia, laparoscopic cholecystectomy 2015, right toe amputation on January 26, 2021, 4 days ago. Recommendation: 1. The patient needs new battery for gastric stimulator. We will get that in Tertiary center once discharged from hospital with acute flare controlled / resolved. Currently, we will need to manage this acute flare with medical means. 2. Erythromycin 450 mg p.o. q.i.d. The patient unable to tolerate Reglan per history. 3. P.r.n. pain medications and antiemetics. 4. IV fluids. 5. Optimize diabetes management. 6. Diaphragmatic breathing with increased function of the parasympathetic nervous system to help with motility in the stomach. 7. Strict schedule for all daily activities including eating, sleeping, exercise, and etc. SOWMYA/ANNA Voice ID: [id number] Report ID: [id number] ABIGAIL
[2021-01-30] MEDS: COLLAGENASE 30 GM OINTMENT TOP SCH (14:30)
[2021-01-30] MEDS: ENSURE HIGH PROTEIN 237 ML CAN PO SCH (21:00)
[2021-01-30] MEDS: ROSUVASTATIN 10 MG TAB PO SCH (21:30)
[2021-01-30] MEDS: NORTRIPTYLINE HCL 25 MG CAP PO SCH (21:31)
[2021-01-30] MEDS: ZOLPIDEM TARTRATE 10 MG TABLET PO PRN (21:31)
[2021-01-30] MEDS: INSULIN GLARGINE 100 UNITS/ML SQ SCH (21:37)
[2021-01-31] MEDS ORDERED: POTASSIUM CL SA 10 MEQ TAB PO ONE ×3 (00:33→09:15)
[2021-01-31] MEDS: PROMETHAZINE INJ 25 MG/ML AMP IV PRN ×4 (02:06→23:36)
[2021-01-31] MEDS: HYDROMORPHONE HCL 1 MG/ML INJ IV PRN ×4 (02:06→14:22)
[2021-01-31] MEDS: NA CHLORIDE 0.9% 1,000 ML IV SCH (06:01)
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
[2021-01-31 07:19] LABS: Absolute Lymphocytes (CBC) 1.9 K/uL (0.7-4.9); Basophils % 0.7 % (0-1.3); Hematocrit 30.2 % (39.6-49.0); Lymphocytes % 28.7 % (15.3-44.8); MPV 7.5 fL (7.6-11.3); RBC Red Blood Cell Count 3.29 M/uL (4.33-5.43)
[2021-01-31] MEDS: INSULIN -REGULAR HUMAN 50 UNIT/0.5 ML ML SQ SCH ×4 (07:30→20:23)
[2021-01-31 07:36] LABS: ALT/SGPT 22 U/L (12-78); AST/SGOT 10 U/L (15-37); Albumin 2.5 g/dL (3.4-5.0); Alkaline Phosphatase 76 U/L (45-117); BUN Blood Urea Nitrogen 10 mg/dL (7-18); Bicarbonate 29 mmol/L (21-32); Bilirubin Total 0.2 mg/dL (0.2-1.0); Glucose Level 162 mg/dL (74-106); Potassium 3.4 mmol/L (3.5-5.1); Protein, Total 6.7 g/dL (6.4-8.2); Sodium Level 144 mmol/L (136-145)
--- NOTE | 2021-01-31 07:51 | RAD REPORT ---
EXAM DESCRIPTION: RAD - Abdomen 1 View (KUB) - 01/31/2021 6:33 am CLINICAL HISTORY: f/u stool burden, h/o gastroparesis COMPARISON: Abdomen 1 View (KUB) dated 01/29/2021 FINDINGS: Stool burden has been reduced since the January 29 study. Gastric neurostimulator device remains in place. Well filled urinary bladder causes increased density over the central pelvis. No f ree air or pneumatosis. No suspicious calcifications. IMPRESSION: Decreased stool burden since the January 29 study.
[2021-01-31] MEDS ORDERED: CODEINE 30MG/APAP 300MG TAB PO PRN (08:08)
[2021-01-31] MEDS: ENSURE HIGH PROTEIN 237 ML CAN PO SCH ×2 (09:00→20:28)
[2021-01-31] MEDS: COLLAGENASE 30 GM OINTMENT TOP SCH (09:00)
[2021-01-31] MEDS: SUCRALFATE 1 GM TABLET PO SCH ×4 (09:14→20:27)
[2021-01-31] MEDS: LACTOBACILLUS/ACIDOPHILUS TAB PO SCH ×2 (09:14→20:28)
[2021-01-31] MEDS: SENOSIDES 8.6 MG TAB PO SCH ×2 (09:14→20:28)
[2021-01-31] MEDS: ZINC SULFATE 220 MG CAP PO SCH (09:16)
[2021-01-31] MEDS: lisinopriL 10 MG TAB PO SCH (09:16)
[2021-01-31] MEDS: ASCORBIC ACID 500 MG TABLET PO SCH (09:16)
[2021-01-31] MEDS: hydroCHLOROthiazide 12.5 MG CAP PO SCH (09:16)
[2021-01-31] MEDS: VANCOMYCIN 1.75 GM in NA CHLORIDE 0.9% 500 ML IVPB SCH ×2 (09:17→22:26)
[2021-01-31] MEDS: PANTOPRAZOLE 40 MG INJ IVP SCH ×2 (09:18→20:27)
[2021-01-31] MEDS: ENOXAPARIN 40 MG/0.4 ML SQ SCH (09:18)
[2021-01-31] MEDS: JUVEN PACKET PO SCH ×2 (09:20→20:28)
--- NOTE | 2021-01-31 11:02 | P.PN ---
Subjective Date of Service: 01/31/21 Chief Complaint: R foot cellulitis Patient seen examined at bedside, right arm PICC line placed. Patient denies any pain to the area. Review of Systems 10-point ROS is otherwise unremarkable Physical Examination - Vital Signs Temperature: 96.6 F Blood Pressure: 142/90 Pulse: 95 Respirations: 14 Pulse Ox (%): 96 - Studies Laboratory Last Values WBC 12.10 K/uL (4.3-10.9) H 01/23/21 02:05 RBC 3.85 M/uL (4.33-5.43) L 01/23/21 02:05 Hgb 12.0 g/dL (13.6-17.9) L 01/23/21 02:05 Hct 35.3 % (39.6-49.0) L 01/23/21 02:05 MCV 91.6 fL (80-100) 01/23/21 02:05 MCH 31.2 pg (27.0-35.0) 01/23/21 02:05 MCHC 34.1 g/dL (32.0-36.0) 01/23/21 02:05 RDW 12.2 % (12.1-15.2) 01/23/21 02:05 Plt Count 453 K/uL (152-406) H 01/23/21 02:05 MPV 8.3 fL (7.6-11.3) 01/23/21 02:05 Neutrophils % 73.9 % (41.7-73.7) H 01/23/21 02:05 Lymphocytes % 15.5 % (15.3-44.8) 01/23/21 02:05 Monocytes % 9.8 % (3.3-12.3) 01/23/21 02:05 Eosinophils % 0.2 % (0-4.4) 01/23/21 02:05 Basophils % 0.6 % (0-1.3) 01/23/21 02:05 Absolute Neutrophils 8.9 K/uL (1.8-8.0) H 01/23/21 02:05 Absolute Lymphocytes 1.9 K/uL (0.7-4.9) 01/23/21 02:05 Absolute Monocytes 1.2 K/uL (0.1-1.3) 01/23/21 02:05 Absolute Eosinophils 0.0 K/uL (0-0.5) 01/23/21 02:05 Absolute Basophils 0.1 K/uL (0-0.5) 01/23/21 02:05 Sodium 139 mmol/L (136-145) 01/23/21 02:05 Potassium 3.9 mmol/L (3.5-5.1) 01/23/21 02:05 Chloride 103 mmol/L (98-107) 01/23/21 02:05 Carbon Dioxide 24 mmol/L (21-32) 01/23/21 02:05 BUN 24 mg/dL (7-18) H 01/23/21 02:05 Creatinine 1.24 mg/dL (0.55-1.3) 01/23/21 02:05 Estimated GFR 65 mL/min (=/>90) L 01/23/21 02:05 Glucose 267 mg/dL (74-106) H 01/23/21 02:05 POC Glucose 261 mg/dL (65-120) H 01/23/21 02:03 Hemoglobin A1c 11.9 % (4.2-6.3) H 01/23/21 02:05 Lactic Acid 2.7 mmol/L (0.4-2.0) H 01/23/21 02:05 Calcium 9.7 mg/dL (8.5-10.1) 01/23/21 02:05 Total Bilirubin 0.3 mg/dL (0.2-1.0) 01/23/21 02:05 Direct Bilirubin 0.1 mg/dL (0-0.2) 01/23/21 02:05 AST 8 U/L (15-37) L 01/23/21 02:05 ALT 24 U/L (12-78) 01/23/21 02:05 Alkaline Phosphatase 102 U/L (45-117) 01/23/21 02:05 C-Reactive Protein 132.00 mg/L (<3.00) H 01/23/21 02:05 Serum Total Protein 8.8 g/dL (6.4-8.2) H 01/23/21 02:05 Albumin 3.4 g/dL (3.4-5.0) 01/23/21 02:05 Globulin 5.4 g/dL (2.3-3.5) H 01/23/21 02:05 Albumin/Globulin Ratio 0.6 (1.1-1.8) L 01/23/21 02:05 Lipase 73 U/L (73-393) 01/23/21 02:05 Procalcitonin 0.12 ng/mL (<0.050) H 01/23/21 02:05 Assessment And Plan - Plan Physical Exam: General: Alert, In no apparent distress, Oriented x3 HEENT: Normocephalic Neck: Supple, 2+ carotid pulse no bruit Respiratory: Clear to auscultation bilaterally, Normal air movement Cardiovascular: No edema, Normal pulses Gastrointestinal: Hypoactive, Tenderness Musculoskeletal: No clubbing, No swelling Integumentary: Diabetic ulcer (Diabetic ulcer to right foot, s/p amputation of right second toe Neurological: Normal gait, Normal speech Conclusions/Impression: Antibiotics: Vancomycin Start: 01/23 Stop: 02/06 Indication: MRSA bacteremia Assessment/plan Right foot diabetic foot ulcer Patient underwent amputation of right 2nd toe on 01/26. The bone concerning for osteomyelitis has been removed, source infection controlled. Wound care per surgery team. Keep legs elevated at all times. Continue broad-spectrum IV antibiotics. Patient started on vitamins to promote wound healing: Vitamin-D, zinc. Continue to trend inflammatory markers: CRP 132, procal 0.12, ESR greater than 140. Bacteremia Blood cultures performed on 01/23 growing MRSA, source of infection infected right diabetic foot ulcer. Repeat blood culture showed no growth. Patient will need antibiotics for 2 weeks following a negative blood culture report. Due to MRSA bacteremia patient will also need echocardiogram. Patient started on vancomycin, trough goal of 15-20. Continue to monitor vancomycin trough and renal function. Patient started on probiotic. Diabetes mellitus type 1 Most recent hemoglobin A1c of 11.9. Continue sliding scale insulin, strict glucose monitoring needed for proper wound healing. protein caloric malnutrition Low albumin: 2.5. Recommend supplemental Glucerna drinks. Anemia Continue to monitor H&H Medical management per primary team Continue monitor CBC and BMP Continue to monitor for signs infection Plan of care discussed with Dr. enamorado Physician Review: Patient Assessed, Agree with Above Assessment and Plan
[2021-01-31] MEDS: ONDANSETRON 4 MG/2 ML VIAL IV PRN (14:22)
[2021-01-31] MEDS: HYDROMORPHONE HCL 0.5 MG/0.5 ML INJ IV PRN ×3 (17:39→23:36)
[2021-01-31] MEDS: INSULIN GLARGINE 100 UNITS/ML SQ SCH (20:22)
[2021-01-31] MEDS: NORTRIPTYLINE HCL 25 MG CAP PO SCH (20:26)
[2021-01-31] MEDS: ROSUVASTATIN 10 MG TAB PO SCH (20:26)
[2021-01-31] MEDS: ZOLPIDEM TARTRATE 10 MG TABLET PO PRN (20:34)
[2021-01-31 22:32] VITALS: O2SAT 95
[2021-02-01] MEDS: HYDROMORPHONE HCL 0.5 MG/0.5 ML INJ IV PRN ×4 (02:24→12:00)
[2021-02-01] MEDS: PROMETHAZINE INJ 25 MG/ML AMP IV PRN ×2 (05:47→12:00)
[2021-02-01 06:10] LABS: Hematocrit 31.8 % (39.6-49.0); RBC Red Blood Cell Count 3.47 M/uL (4.33-5.43)
[2021-02-01 06:23] LABS: BUN Blood Urea Nitrogen 12 mg/dL (7-18); Bicarbonate 33 mmol/L (21-32); Glucose Level 228 mg/dL (74-106); Magnesium 2.2 mg/dL (1.8-2.4); Potassium 3.8 mmol/L (3.5-5.1); Sodium Level 141 mmol/L (136-145)
[2021-02-01] MEDS: INSULIN -REGULAR HUMAN 50 UNIT/0.5 ML ML SQ SCH ×2 (07:30→11:30)
[2021-02-01 08:26] VITALS: BP 117/72; TEMP 97
[2021-02-01] MEDS: JUVEN PACKET PO SCH (09:00)
[2021-02-01] MEDS: ENSURE HIGH PROTEIN 237 ML CAN PO SCH (09:00)
[2021-02-01] MEDS ORDERED: POTASSIUM CL SA 10 MEQ TAB PO ONE (09:00)
[2021-02-01] MEDS: LACTOBACILLUS/ACIDOPHILUS TAB PO SCH (09:04)
[2021-02-01] MEDS: SENOSIDES 8.6 MG TAB PO SCH (09:04)
[2021-02-01] MEDS: ZINC SULFATE 220 MG CAP PO SCH (09:04)
[2021-02-01] MEDS: ASCORBIC ACID 500 MG TABLET PO SCH (09:05)
[2021-02-01] MEDS: hydroCHLOROthiazide 12.5 MG CAP PO SCH (09:05)
[2021-02-01] MEDS: lisinopriL 10 MG TAB PO SCH (09:05)
[2021-02-01] MEDS: ENOXAPARIN 40 MG/0.4 ML SQ SCH (09:06)
[2021-02-01] MEDS: SUCRALFATE 1 GM TABLET PO SCH ×2 (09:06→12:05)
[2021-02-01] MEDS: PANTOPRAZOLE 40 MG INJ IVP SCH (09:06)
[2021-02-01] MEDS: COLLAGENASE 30 GM OINTMENT TOP SCH (09:10)
[2021-02-01] MEDS: VANCOMYCIN 1.75 GM in NA CHLORIDE 0.9% 500 ML IVPB SCH (09:18)
--- NOTE | 2021-02-01 12:07 | P.PN ---
Subjective Date of Service: 02/01/21 Chief Complaint: R foot cellulitis Patient seen examined at bedside, no acute events over past 24 hr. Review of Systems 10-point ROS is otherwise unremarkable Physical Examination - Vital Signs Temperature: 97 F Blood Pressure: 117/72 Pulse: 99 Respirations: 14 Pulse Ox (%): 96 - Studies Laboratory Last Values WBC 12.10 K/uL (4.3-10.9) H 01/23/21 02:05 RBC 3.85 M/uL (4.33-5.43) L 01/23/21 02:05 Hgb 12.0 g/dL (13.6-17.9) L 01/23/21 02:05 Hct 35.3 % (39.6-49.0) L 01/23/21 02:05 MCV 91.6 fL (80-100) 01/23/21 02:05 MCH 31.2 pg (27.0-35.0) 01/23/21 02:05 MCHC 34.1 g/dL (32.0-36.0) 01/23/21 02:05 RDW 12.2 % (12.1-15.2) 01/23/21 02:05 Plt Count 453 K/uL (152-406) H 01/23/21 02:05 MPV 8.3 fL (7.6-11.3) 01/23/21 02:05 Neutrophils % 73.9 % (41.7-73.7) H 01/23/21 02:05 Lymphocytes % 15.5 % (15.3-44.8) 01/23/21 02:05 Monocytes % 9.8 % (3.3-12.3) 01/23/21 02:05 Eosinophils % 0.2 % (0-4.4) 01/23/21 02:05 Basophils % 0.6 % (0-1.3) 01/23/21 02:05 Absolute Neutrophils 8.9 K/uL (1.8-8.0) H 01/23/21 02:05 Absolute Lymphocytes 1.9 K/uL (0.7-4.9) 01/23/21 02:05 Absolute Monocytes 1.2 K/uL (0.1-1.3) 01/23/21 02:05 Absolute Eosinophils 0.0 K/uL (0-0.5) 01/23/21 02:05 Absolute Basophils 0.1 K/uL (0-0.5) 01/23/21 02:05 Sodium 139 mmol/L (136-145) 01/23/21 02:05 Potassium 3.9 mmol/L (3.5-5.1) 01/23/21 02:05 Chloride 103 mmol/L (98-107) 01/23/21 02:05 Carbon Dioxide 24 mmol/L (21-32) 01/23/21 02:05 BUN 24 mg/dL (7-18) H 01/23/21 02:05 Creatinine 1.24 mg/dL (0.55-1.3) 01/23/21 02:05 Estimated GFR 65 mL/min (=/>90) L 01/23/21 02:05 Glucose 267 mg/dL (74-106) H 01/23/21 02:05 POC Glucose 261 mg/dL (65-120) H 01/23/21 02:03 Hemoglobin A1c 11.9 % (4.2-6.3) H 01/23/21 02:05 Lactic Acid 2.7 mmol/L (0.4-2.0) H 01/23/21 02:05 Calcium 9.7 mg/dL (8.5-10.1) 01/23/21 02:05 Total Bilirubin 0.3 mg/dL (0.2-1.0) 01/23/21 02:05 Direct Bilirubin 0.1 mg/dL (0-0.2) 01/23/21 02:05 AST 8 U/L (15-37) L 01/23/21 02:05 ALT 24 U/L (12-78) 01/23/21 02:05 Alkaline Phosphatase 102 U/L (45-117) 01/23/21 02:05 C-Reactive Protein 132.00 mg/L (<3.00) H 01/23/21 02:05 Serum Total Protein 8.8 g/dL (6.4-8.2) H 01/23/21 02:05 Albumin 3.4 g/dL (3.4-5.0) 01/23/21 02:05 Globulin 5.4 g/dL (2.3-3.5) H 01/23/21 02:05 Albumin/Globulin Ratio 0.6 (1.1-1.8) L 01/23/21 02:05 Lipase 73 U/L (73-393) 01/23/21 02:05 Procalcitonin 0.12 ng/mL (<0.050) H 01/23/21 02:05 Assessment And Plan - Plan Physical Exam: General: Alert, In no apparent distress, Oriented x3 HEENT: Normocephalic Neck: Supple, 2+ carotid pulse no bruit Respiratory: Clear to auscultation bilaterally, Normal air movement Cardiovascular: No edema, Normal pulses Gastrointestinal: Hypoactive, Tenderness Musculoskeletal: No clubbing, No swelling Integumentary: Diabetic ulcer (Diabetic ulcer to right foot, s/p amputation of right second toe Neurological: Normal gait, Normal speech Conclusions/Impression: Antibiotics: Vancomycin Start: 01/23 Stop: 02/06 Indication: MRSA bacteremia Assessment/plan Right foot diabetic foot ulcer Patient underwent amputation of right 2nd toe on 01/26. The bone concerning for osteomyelitis has been removed, source infection controlled. Wound care per surgery team. Keep legs elevated at all times. Continue broad-spectrum IV antibiotics. Patient started on vitamins to promote wound healing: Vitamin-D, zinc. Continue to trend inflammatory markers: CRP 132, procal 0.12, ESR greater than 140. Bacteremia Blood cultures performed on 01/23 growing MRSA, source of infection infected right diabetic foot ulcer. Repeat blood culture showed no growth. Patient will need antibiotics for 2 weeks following a negative blood culture report. Due to MRSA bacteremia patient will also need echocardiogram. Patient started on vancomycin, trough goal of 15-20. Continue to monitor vancomycin trough and renal function. Patient started on probiotic. Diabetes mellitus type 1 Most recent hemoglobin A1c of 11.9. Continue sliding scale insulin, strict glucose monitoring needed for proper wound healing. protein caloric malnutrition Low albumin: 2.5. Recommend supplemental Glucerna drinks. Anemia Continue to monitor H&H Medical management per primary team Continue monitor CBC and BMP Continue to monitor for signs infection Plan of care discussed with Dr. enamorado Physician Review: Patient Assessed, Agree with Above Assessment and Plan
--- NOTE | 2021-02-01 20:54 | P.DS ---
Admission Date: 01/23/21 Discharge Date: 02/01/21 Disposition: ROUTINE DISCHARGE Reason for Admission: R foot cellulitis Consultations: GI - Dr. Marte General Surgery - Dr. Sorenson ID - Dr. aTmez Procedures: CT Abd/Pelvis (01/23): IMPRESSION: No acute findings in the abdomen or pelvis. Xray Foot (01/23): FINDINGS: 13 millimeter avulsion fracture fragment base of the fifth metatarsal. Presumably this is acute/subacute and should be correlated clinically Old fracture distal fifth metatarsal. Osteoporosis No dislocation Edema within the soft tissues. CT Lower Extremity (01/25): IMPRESSION: Soft tissue wound changes are present along the dorsal surface second toe at the PIP joint. Bone disruption in the second proximal and middle phalanges near the PIP joint could be osteomyelitis, posttraumatic change or a combination. Soft tissue thickening and edema change along the plantar soft tissues near the second- fourth MTP joints. No air or foreign body. No bone destruction. Correlation is needed for any exam findings of soft tissue infection near this site. KUB (01/29): FINDINGS: The bowel gas pattern is non-obstructive. No evidence of free air or pneumatosis. Moderate stool is seen throughout the colon. No significant bony findings. Stimulator device is present. Cholecystectomy noted. IMPRESSION: Moderate constipation. EGD (01/30): by Dr. Marte [place] Class A esophagitis in the lower esophagus Moderate sized hiatal hernia Mild gastritis in the antrum, s/p biopsies Duodenitis in the bulb of the duodenum CXR (01/30): IMPRESSION: No acute cardiopulmonary disease. PICC in satisfactory position overlying the distal SVC. KUB (01/31): FINDINGS: Stool burden has been reduced since the January 29 study. Gastric neurostimulator device remains in place. Well filled urinary bladder causes increased density over the central pelvis. No free air or pneumatosis. No suspicious calcifications. IMPRESSION: Decreased stool burden since the January 29 study. Amputation of 2nd phalanx of Right foot. Debridement of R foot plantar wound - 1st/2nd metatarsal region (01/26) by Dr. Sorenson Echo (01/25): normal LVEF: 60-65% no clear evidence of vegetation. Problem List R Diabetic foot ulcers with osteomyelitis s/p amputation/debridement Type 1 DM, insulin dependent with peripheral neuropathy Gastroparesis, chronic s/p gastric neurostimulator implantation Nausea, Epigastric abdominal pain secondary to gastroparesis and Esophagitis, gastritis, duodenitis Hiatal hernia Hypertension Brief History of Present Illness: 40 yo M with T1DM, diabetic gastroparesis s/p gastroneuro stimulator implant and neuropathy, HTN who presents with increased throbbing pain, swelling, and foul smelling drainage from his R foot. He has had a diabetic foot ulcer on this foot for some time and says he has been cleaning the wound every other day. He has an appointment on Thursday to be seen in the wound care clinic. He also has had a fl are up of his gastroparesis. He reports constant vomiting and worsening pain for the past several hours. WBC 12.1, Glu 267, Lactate 2.7, procal 0.12. Hospital Course: Patient was found to have osteomyelitis. General surgery was consulted and patient underwent amputation/debridement. Wound and blood cultures grew MRSA. ID was consulted and recommended 2 weeks of IV vancomycin. Patient had a PICC line placed for home IV antiobiotics. Hospitalization was complicated by a flare of his gastroparesis that lead to nausea/dry-heaving and moderate-severe abdominal pain. Patient reported having several of these episodes that typically resolve with IVF and IV dilaudid. Patient was given IV pain medication and started on erythromycin and phenergan. He continued with minimal improvement so GI was consulted and patient was found to have esophagitis/gastritis/duodenitis by EGD. He was treated with protonix and carafate with some gradual improvement of his pain. On day of discharge he was tolerating PO, with mild pain. [email or web address] rep was contacted to interrogate the patient's gastric neurostimulator. It was found to be out of battery. Patient will need to follow up at [facility] as an outpatient to have the battery replaced. Discharged home to complete IV antibiotics, daily wound care dressing changes, and continue erythromycin, carafate, and protonix. Follow up with Dr. Sorenson in 1 week. Vital Signs/Physical Exam: Physical Exam General: AOx3, NAD HEENT: normal conjunctiva, sclera anicteric Respiratory: Clear to auscultation bilaterally, Normal air movement Cardiovascular: regular rate/rhythm, no edema Gastrointestinal: soft, mild tenderness to palpation in epigastrium, non- distended Skin: R foot with dressing in place: c/d/i Temp Pulse Resp BP Pulse Ox 97 F 99 H 14 117/72 96 02/01/21 12:07 02/01/21 12:07 02/01/21 12:07 02/01/21 12:07 02/01/21 12:07 Laboratory Data at Discharge: WBC 7.60 K/uL (4.3-10.9) 02/01/21 05:54 Hgb 10.8 g/dL (13.6-17.9) L 02/01/21 05:54 Hct 31.8 % (39.6-49.0) L 02/01/21 05:54 Plt Count 451 K/uL (152-406) H 02/01/21 05:54 Sodium 141 mmol/L (136-145) 02/01/21 05:54 Potassium 3.8 mmol/L (3.5-5.1) 02/01/21 05:54 BUN 12 mg/dL (7-18) 02/01/21 05:54 Creatinine 0.85 mg/dL (0.55-1.3) 02/01/21 05:54 Glucose 228 mg/dL (74-106) H 02/01/21 05:54 Phosphorus 2.9 mg/dL (2.5-4.9) 01/24/21 02:01 Magnesium 2.2 mg/dL (1.8-2.4) 02/01/21 05:54 Total Bilirubin 0.2 mg/dL (0.2-1.0) 01/31/21 06:54 AST 10 U/L (15-37) L 01/31/21 06:54 ALT 22 U/L (12-78) 01/31/21 06:54 Alkaline Phosphatase 76 U/L (45-117) 01/31/21 06:54 Triglycerides 119 mg/dL (<150) 01/24/21 02:01 Cholesterol 125 mg/dL (<200) 01/24/21 02:01 HDL Cholesterol 61 mg/dL (40-60) H 01/24/21 02:01 Cholesterol/HDL Ratio 2.05 01/24/21 02:01 Lipase 40 U/L (73-393) L 01/29/21 05:57 Home Medications: Insulin Aspart [Novolog] 10 ml SQ ACHS 01/24/21 Insulin Glargine,Hum.rec.anlog [Lantus] 100 units SQ BEDTIME 01/24/21 Lisinopril/Hydrochlorothiazide [Lisinopril-Hctz 10-12.5 mg Tab] 1 tab PO BEDTIME 01/24/21 Nortriptyline HCl [Pamelor] 1 tab PO BEDTIME 01/24/21 Rosuvastatin [Crestor*] 5 mg PO BEDTIME 01/24/21 Zolpidem Tartrate 1 tab PO BEDTIME 01/24/21 Codeine/APAP [Tylenol #3*] 1 tab PO Q6H PRN 5 Days #15 tab 02/01/21 Collagenase [Santyl Ointment*] 1 appl TOP DAILY tube 02/01/21 Erythromycin Base [Erythromycin] 250 mg PO TIDWM 10 Days #30 tablet 02/01/21 Pantoprazole [Protonix Tab*] 40 mg PO BID 30 Days #60 tab 02/01/21 Promethazine Tab [Phenergan] 25 mg PO Q6HP PRN 5 Days #20 tab 02/01/21 Sucralfate [Carafate] 1 gm PO TID 30 Days #90 tablet 02/01/21 New Medications: Promethazine Tab [Phenergan] 25 mg PO Q6HP PRN 5 Days #20 tab PRN Reason: Nausea / Vomiting Sucralfate [Carafate] 1 gm PO TID 30 Days #90 tablet Erythromycin Base [Erythromycin] 250 mg PO TIDWM 10 Days #30 tablet Pantoprazole [Protonix Tab*] 40 mg PO BID 30 Days #60 tab Codeine/APAP [Tylenol #3*] 1 tab PO Q6H PRN 5 Days #15 tab PRN Reason: Pain Scale 5-7 (Moderate) Physician Discharge Instructions: You were found to have osteomyelitis of your R toe and underwent debridement/amputation. You need to complete 2 weeks total of IV antibiotics. Follow up with Dr. Sorenson. Wound dressings per his instruction - daily. Home health has been set up for IV antibiotics. You were also noted to have a flare up of your gastroparesis. Your gastric pacer was found to no longer have a working battery. You were treated with erythromycin and Phenergan. You are discharged to continue these for a few more days. You will need to f/u with GI / Surgery at [facility] to have your battery replaced You underwent EGD by Dr. Marte and found to have esophagitis, gastritis, and duodenitis. You were switched from famotidine to pantoprazole twice a day and carafate. Diet: Regular Activity: Non-weight bearing (RIGHT foot) Followup: Darryn Sorenson MD [ACTIVE - CAN ADMIT] - Unknown,U [Primary Care Provider] - Time spent managing pt's care (in minutes): 45
== END 2021-02-01 14:55 | disposition home health service (06) | DRG 617 ==
LOC: ER 01:39 → ERHOLD 04:00 → 2ND 01-24 15:35
PROVIDERS: ADMIT Internal Medicine; ATTEND Internal Medicine
PROC: 0Y6R0Z1 Detachment at Right 2nd Toe, High, Open Approach (ICD-10-PCS; 2021-01-26)
PROC: 0JDQ3ZZ Extraction of Right Foot Subcutaneous Tissue and Fascia, Percutaneous Approach (ICD-10-PCS; 2021-01-26)
PROC: 05H533Z Insertion of Infusion Device into Right Subclavian Vein, Percutaneous Approach (ICD-10-PCS; 2021-01-30)
PROC: 0DB68ZX Excision of Stomach, Via Natural or Artificial Opening Endoscopic, Diagnostic (ICD-10-PCS; principal; 2021-01-30 10:00)
DX: E10.69 Type 1 diabetes mellitus with other specified complication (principal); M86.171 Other acute osteomyelitis, right ankle and foot; R78.81 Bacteremia; E46 Unspecified protein-calorie malnutrition; B95.62 Methicillin resistant Staphylococcus aureus infection as the cause of diseases classified elsewhere; E10.42 Type 1 diabetes mellitus with diabetic polyneuropathy; E10.43 Type 1 diabetes mellitus with diabetic autonomic (poly)neuropathy; E10.621 Type 1 diabetes mellitus with foot ulcer; K31.84 Gastroparesis; K20.90 Esophagitis, unspecified without bleeding; K29.70 Gastritis, unspecified, without bleeding; K44.9 Diaphragmatic hernia without obstruction or gangrene; K29.80 Duodenitis without bleeding; I10 Essential (primary) hypertension; Z68.25 Body mass index [BMI] 25.0-25.9, adult; D64.9 Anemia, unspecified; Z96.82 Presence of neurostimulator; Z20.822 Contact with and (suspected) exposure to COVID-19
CPT/HCPCS: 36415; 36569; 71045; 73701; 74018; 74177; 80048; 80053; 80061; 80076; 80202; 82947; 83036; 83605; 83690; 83735; 84100; 84132; 84145; 84439; 84443; 85025; 85027; 85652; 86140; 87040; 87070; 87077; 87186; 87205; 88305; 88311; 88312; 93005; 93306; 94760; 99251; 99284; C9113; J0360; J0692; J1170; J1650; J1815; J2175; J2270; J2405; J2550; J2704; J3010; J3370; J3480; J3590; J7030; J7040; J7050; Q9967; U0003

== ENCOUNTER 2021-02-12 09:47 | Day surgery (SDC) | payer OTHER ==
[2021-02-11 15:03] LABS: Absolute Lymphocytes (CBC) 1.7 K/uL (0.7-4.9); Basophils % 0.4 % (0-1.3); Hematocrit 36.4 % (39.6-49.0); Lymphocytes % 26.2 % (15.3-44.8); MPV 8.1 fL (7.6-11.3); RBC Red Blood Cell Count 4.03 M/uL (4.33-5.43)
[2021-02-11 15:26] LABS: BUN Blood Urea Nitrogen 27 mg/dL (7-18); Bicarbonate 24 mmol/L (21-32); Glucose Level 262 mg/dL (74-106); Potassium 4.6 mmol/L (3.5-5.1); Sodium Level 139 mmol/L (136-145)
[2021-02-12] MEDS ORDERED: NA CHLORIDE 0.9% 1,000 ML ONE (10:29)
[2021-02-12] MEDS ORDERED: CEFAZOLIN 2 GM IN 0.9% NACL 2 GM/100 ML BAG ONE (11:00)
[2021-02-12] MEDS ORDERED: BUPIVACAINE 0.25% PF 30 ML VIAL ONE (11:10)
[2021-02-12] MEDS ORDERED: FENTANYL CITR 100 MCG/2 ML IV ONE (12:38)
[2021-02-12] MEDS ORDERED: FENTANYL CITR 100 MCG/2 ML ONE ×3 (12:53→16:24)
[2021-02-12] MEDS ORDERED: LIDOCAINE 1% MPF 5 ML VIAL ONE (13:16)
[2021-02-12] MEDS ORDERED: propofoL 200 MG/20 ML VIAL IV ONE (13:16)
[2021-02-12] MEDS ORDERED: MIDAZOLAM HCL 2 MG/2 ML INJ ONE (13:16)
[2021-02-12] MEDS ORDERED: ROCURONIUM 50 MG/5 ML VIAL IV ONE (13:29)
[2021-02-12] MEDS ORDERED: Phenylephrine HCl 10 MG/ML 1 ML VIAL ONE (13:54)
[2021-02-12] MEDS ORDERED: NS 0.9% VIAL 10 ML ONE (13:54)
--- NOTE | 2021-02-12 14:03 | P.OP ---
Preoperative diagnosis: Osteomyelitis of 3rd and 4th toes of RIGHT foot Postoperative diagnosis: Osteomyelitis of 3rd and 4th toes of RIGHT foot Primary procedure: Ampuatation of 3rd and 4th toes of RIGHT foot Secondary procedure: Debridement of infected tissue Anesthesia: GETA Local Estimated blood loss: <20cc Specimen: cultures, toes, debridement tissue Findings: Osteomyelitis of 3rd and 4th toes of RIGHT foot, abscess Complications: None Transferred to: Recovery Room Condition: Good
[2021-02-12] MEDS ORDERED: SODIUM HYPOCHLORITE 0.25% 473 ML ONE (14:17)
[2021-02-12] MEDS: HYDROMORPHONE HCL 2 MG/ML inj ONE ×4 (14:22→14:37)
--- NOTE | 2021-02-12 14:31 | OP ---
Date of Procedure: 02/12/2021 Surgeon: Darryn Sorenson MD, Preoperative Diagnosis: Osteomyelitis infection of the third and fourth toes of the right foot. Postoperative Diagnosis: Osteomyelitis infection of the third and fourth toes of the right foot. Procedures Performed: 1.Amputation of the third and fourth toes of the right foot. 2.Debridement of infected deep tissues of the right foot. Anesthesia: General endotracheal plus local. Estimated Blood Loss: Less than 20 mL. Specimen: Cultures. 1.For both aerobic and anaerobic speciation. 2.Toes #3 and 4 of the right foot. 3.Debridement tissue from affected areas into the plantar fascia involving the muscles and tendinous connections. Findings: Osteomyelitis of the third and fourth toes extending to the entire phalanx to metatarsopha langeal joint and 2 toes as well as multiloculated abscesses within the soft tissue extending to the plantar fascia and into the tendinous connections of the above affected toes. Complications: None. Disposition: The patient was transferred to recovery room in good condition. Procedure In Detail: After informed consent was obtained, the patient was brought to the operating r oom, prepped and draped in the usual sterile fashion after adequate anesthesia was achieved. I made a linear incision overlying an area of draining abscess. I opened this abscess cavity and cultured a bscess material at this point for both aerobic and anaerobic speciation. After opening this area, I noted that the blood supply to both the third and fourth toes was compromised by the infection/periph eral arterial disease that was evident in this area. I therefore opted to debride the tissue at this point. The 2 toes, #3 and 4 appeared to be infected with osteomyelitic changes to the surrounding t issues concerning and abutting up to the bone. As such, I opted to amputate the 2 toes as it was imp ossible to tell if these were without any obvious osteomyelitic changes as they were bathed in absces s material. At this point, I made a linear incision around the affected toes #3 and 4 with a 10 blad e down to subcutaneous tissues. After this was performed, electrocautery was used to dissect circumf erentially around. I ultimately dissected free the surrounding tissue and tendinous and ligamentous attachments of the third and fourth toes and removed these at the metatarsophalangeal joint and sent these toes off individually for pathologic examination. I then removed and debrided all affected inf ected tissues of this area until I got down to good bleeding tissue. This was easily controlled with electrocautery. I then performed a pulse lavage of the entire area to cleanse out with approximatel y 2 L of saline. After this was performed, hemostasis was once again ensured with electrocautery wit h minimal use of electrocautery. I then imbricated the plantar fascia over the metatarsals #3 and 4, which were exposed at this point for good closure. At this point, I then irrigated the area once ag ain and brought the tissues into loose approximation, but the foot remained open at this point. I th en packed the wound with sterile dressing on top. The patient tolerated the procedure well without e vidence of complication and transferred to PACU in good condition. All counts were correct at the en d of the case. TYESHA/ANNA Voice ID: [id number] Report ID: [id number]
[2021-02-12] MEDS: HYDROMORPHONE HCL 1 MG/ML INJ ONE ×2 (14:42→14:51)
[2021-02-12] MEDS ORDERED: SUCCINYLCHOLINE 20 MG/ML (10 ML) IV ONE (14:44)
[2021-02-12] MEDS ORDERED: PROMETHAZINE INJ 25 MG/ML AMP ONE (15:06)
[2021-02-12] MEDS ORDERED: ONDANSETRON 4 MG/2 ML VIAL ONE (15:22)
[2021-02-12] MEDS ORDERED: HYDROCODONE/APAP 10/325 TAB ONE (16:18)
[2021-02-12] MEDS ORDERED: NALOXONE 0.4 MG/ML VIAL ONE ×2 (16:42→17:06)
[2021-02-12] MEDS ORDERED: LABETALOL 20 MG/4ML SYRINGE IV ONE (16:46)
--- NOTE | 2021-02-12 17:16 | RAD REPORT ---
EXAM DESCRIPTION: CT - Head C Spine Mpr Wo Con - 02/12/2021 4:58 pm CLINICAL HISTORY: Head and neck pain. COMPARISON: None. TECHNIQUE: Computed axial tomography of the head and cervical spine was obtained. Sagittal and coronal reconstruction was performed. All CT scans are performed using dose optimization technique as appropriate and may include automated exposure control or mA/KV adjustment according to patient size. FINDINGS: An intracranial bleed is not seen. The ventricles are normal in caliber. An extra-axial fl uid collection is not noted.Fluid within the visualized sinuses and mastoids is not seen A cervical fracture is not visualized. No dislocation is noted. No high-grade stenosis IMPRESSION: No acute intracranial abnormality is seen. A cervical fracture is not visualized. No high-grade stenosis. If the patient continues to have symptoms to suggest intracranial /spinal cord pathology then MRI wou ld be recommended
[2021-02-12 18:11] VITALS: BP 122/91; TEMP 98; O2SAT 100
== END 2021-02-12 17:30 | disposition still patient (30) ==
LOC: OR 09:47
PROVIDERS: ATTEND Surgery
PROC: 0Y6T0Z0 Detachment at Right 3rd Toe, Complete, Open Approach (ICD-10-PCS; principal; 2021-02-12 11:30)
PROC: 0Y6V0Z0 Detachment at Right 4th Toe, Complete, Open Approach (ICD-10-PCS; 2021-02-12 11:30)
DX: M86.671 Other chronic osteomyelitis, right ankle and foot (principal); Z20.822 Contact with and (suspected) exposure to COVID-19
CPT/HCPCS: 87070; 85025; 80048; 36415; 87205; 82947 ×4; 87075; 70450; 72125; 28820 ×2; U0003; J2704; J2550; J2310; J0330; J2370; J2250; J1170 ×2; J3010 ×4; J0690; J7030; J2405; 88302; 88305; 88311

== ENCOUNTER 2021-02-12 17:48 | Inpatient (IN) | payer OTHER ==
--- NOTE | 2021-02-12 18:11 | ER ---
Nurse's Notes [facility] Name: Christian Lee Age: 40 yrs Sex: Male : 1980 Arrival Date: 02/12/2021 Time: 17:48 Bed 30 Private MD: Diagnosis: Respiratory arrest-NARCOTIC;Type 2 diabetes mellitus with hyperglycemia;Essential (primary) hypertension;Hypokalemia;Hypomagnesemia Presentation: 02/12 19:09 Chief complaint: Patient states: from day surgery. pt went unresponsive while in kh1 recovery from day surgery. was given narcan with positive response. Coronavirus screen: Vaccine status: Patient reports receiving the 2nd dose of the covid vaccine. The client reports previous COVID testing was negative. Date of collection: February 11, 2021. Ebola Screen: No symptoms or risks identified at this time. Initial Sepsis Screen: Does the patient meet any 2 criteria? No. Patient's initial sepsis screen is negative. Does the patient have a suspected source of infection? No. Patient's initial sepsis screen is negative. Risk Assessment: Do you want to hurt yourself or someone else? Patient reports no desire to harm self or others. Onset of symptoms was February 12, 2021. 19:09 Method Of Arrival: Stretcher [facility] 19:09 Acuity: IRINEO 2 [facility] Triage Assessment: 19:14 General: Appears in no apparent distress. comfortable, Behavior is calm, cooperative, [facility] appropriate for age. Pain: Complains of pain in toes Neuro: No deficits noted. Level of Consciousness is awake, alert, obeys commands, Oriented to person, place, time, situation, Hotel Office Manager are weak bilaterally Moves all extremities. Gait is Speech is normal. Respiratory: No deficits noted. Airway is patent Respiratory effort is even, unlabored, Respiratory pattern is regular. Historical: - Allergies: 17:59 Clonidine; jl7 17:59 Compazine; jl7 17:59 Reglan; jl7 17:59 [place]; GI problems; jl7 17:59 tramadol; GI problems; jl7 - Home Meds: 17:59 Lantus Sub-Q [Active]; lisinopril-hydrochlorothiazide Oral [Active]; nortriptyline Oral jl7 [Active]; Novolog Sub-Q [Active]; Simvastatin Oral [Active]; Motilium [Active]; - PMHx: 17:59 diabetes mellitus; Gastroparesis; Hypertensive disorder; insomnia; neuropathy; jl7 - PSHx: 17:59 3rd and 4th toe amputation to Right foot; jl7 - Immunization history:: Adult Immunizations up to date. - Social history:: Smoking status: Patient denies any tobacco usage or history of. - Family history:: not pertinent. Screenin:13 Abuse screen: Denies threats or abuse. Nutritional screening: No deficits noted. [facility] Tuberculosis screening: No symptoms or risk factors identified. Fall Risk None identified. No fall in past 12 months (0 pts). No secondary diagnosis (0 pts). IV access (20 points). Assessment: 18:01 Reassessment: Pt has negative COVID test date 02-11-21 from [facility]. [facility] 23:50 Reassessment: Report called to [facility] on 2nd floor. Pt to room 220. bc5 Vital Signs: 19:13 BP 122 / 85; Pulse 89; Resp 12 S; Temp 98.0; Pulse Ox 100% on 2 lpm NC; [facility] ED Course: 17:48 Patient arrived in ED. ds1 17:49 Shane Elizabeth MD is Attending Physician. enio 17:50 Jennifer Sterling is Primary Nurse. kh1 17:59 Arm band placed on right wrist. jl7 18:10 Simeon Poe MD is Hospitalizing Provider. [facility] 18:26 XRAY Chest (1 view) Sent. 1 18:26 Basic Metabolic Panel Sent. 1 18:26 CBC with Diff Sent. 1 18:26 LFT's Sent. 1 18:26 Magnesium Sent. 1 18:26 NT PRO-BNP Sent. 1 18:26 PT-INR Sent. 1 18:26 Troponin (emerg Dept Use Only) Sent. 1 19:08 COVID-19 : Document "Date of Symptom Onset" if Symptomatic. Sent. [facility] 19:12 Triage completed. 1 19:15 Patient has correct armband on for positive identification. Bed in low position. Call [facility] light in reach. Side rails up X 1. entry level programmer on. Pulse ox on. NIBP on. Administered Medications: 19:02 CANCELLED (Other Intervention Used): Potassium Chloride 40 mEq PO once la1 19:08 Drug: NS 0.9% 1000 ml Route: IV; Rate: 125 ml/hr; Site: left forearm; kh1 22:26 Follow up: IV Status: Completed infusion [facility] 19:08 Drug: ProTONIX (pantoprazole) 40 mg Route: IVP; Site: left forearm; 1 22:26 Follow up: Response: No adverse reaction [facility] 19:08 CANCELLED (Duplicate Order): Potassium Effervescent Tablet 50 mEq PO once; dissolve in [facility] 4 ounces of water or juice 19:40 Drug: Magnesium Sulfate 1 grams Route: IVPB; Infused Over: 1 hrs; Site: left bc5 antecubital; 22:26 Follow up: IV Status: Completed infusion [facility] 20:33 Not Given (Discussed other fluid with Provider Jeffrey, doc in [facility]): NS 0.9% 500 ml bc5 IV at bolus once 21:24 Drug: Potassium Chloride 20 mEq Route: IV; Rate: calculated rate; Site: right bc5 antecubital; Outcome: 18:11 Decision to Hospitalize by Provider. [facility] 23:51 Patient left the ED. [facility] Signatures: Shane Elizabeth MD MD cha Sanford, Demi ds1 Demetrius Martinez RN RN lisa7 Jennifer Sterling [facility] Stephanie Diamond RN RN rene5 Jeffrey Murrieta VBA PROGRAMMER-[facility]1
--- NOTE | 2021-02-12 18:11 | EDPHYS ---
Physician Documentation [facility] Name: Christian Lee Age: 40 yrs Sex: Male : 1980 Arrival Date: 02/12/2021 Time: 17:48 Bed 30 Private MD: ED Physician Shane Elizabeth HPI: 02/12 18:02 This 40 yrs old Male presents to ER via Unassigned with complaints of sp toe enio amputation, respiratory arrest in pacu. 18:02 The patient has shortness of breath sp surgery. Onset: The symptoms/episode enio began/occurred just prior to arrival, today. Duration: The symptoms are continuous, but are steadily getting better, but are markedly better than the original presentation. The patient's shortness of breath has no apparent modifying factors. Preceding the arrest, the patient pain meds. The arrest occurred PACU. Severity of symptoms: At their worst the symptoms were moderate in the emergency department the symptoms have improved markedly. The patient has not experienced similar symptoms in the past. Historical: - Allergies: 17:59 Clonidine; jl7 17:59 Compazine; jl7 17:59 Reglan; jl7 17:59 [place]; GI problems; jl7 17:59 tramadol; GI problems; jl7 - Home Meds: 17:59 Lantus Sub-Q [Active]; lisinopril-hydrochlorothiazide Oral [Active]; nortriptyline Oral jl7 [Active]; Novolog Sub-Q [Active]; Simvastatin Oral [Active]; Motilium [Active]; - PMHx: 17:59 diabetes mellitus; Gastroparesis; Hypertensive disorder; insomnia; neuropathy; jl7 - PSHx: 17:59 3rd and 4th toe amputation to Right foot; jl7 - Immunization history:: Adult Immunizations up to date. - Social history:: Smoking status: Patient denies any tobacco usage or history of. - Family history:: not pertinent. ROS: 18:02 Constitutional: Negative for fever, chills, and weight loss, Eyes: Negative for injury, enio pain, redness, and discharge, ENT: Negative for injury, pain, and discharge, Neck: Negative for injury, pain, and swelling, Cardiovascular: Negative for chest pain, palpitations, and edema, Respiratory: Negative for shortness of breath, cough, wheezing, and pleuritic chest pain, Abdomen/GI: Negative for abdominal pain, nausea, vomiting, diarrhea, and constipation, Back: Negative for injury and pain, : Negative for injury, bleeding, discharge, and swelling, MS/Extremity: Negative for injury and deformity, Skin: Negative for injury, rash, and discoloration, Neuro: Negative for headache, weakness, numbness, tingling, and seizure, Psych: Negative for depression, anxiety, suicide ideation, homicidal ideation, and hallucinations, Allergy/Immunology: Negative for hives, rash, and allergies, Endocrine: Negative for neck swelling, polydipsia, polyuria, polyphagia, and marked weight changes, Hematologic/Lymphatic: Negative for swollen nodes, abnormal bleeding, and unusual bruising. Exam: 18:02 Constitutional: This is a well developed, well nourished patient who is awake, alert, enio and in no acute distress. Head/Face: Normocephalic, atraumatic. Eyes: Pupils equal round and reactive to light, extra-ocular motions intact. Lids and lashes normal. Conjunctiva and sclera are non-icteric and not injected. Cornea within normal limits. Periorbital areas with no swelling, redness, or edema. ENT: Nares patent. No nasal discharge, no septal abnormalities noted. Tympanic membranes are normal and external auditory canals are clear. Oropharynx with no redness, swelling, or masses, exudates, or evidence of obstruction, uvula midline. Mucous membranes moist. Neck: Trachea midline, no thyromegaly or masses palpated, and no cervical lymphadenopathy. Supple, full range of motion without nuchal rigidity, or vertebral point tenderness. No Meningismus. Chest/axilla: Normal chest wall appearance and motion. Nontender with no deformity. No lesions are appreciated. Cardiovascular: Regular rate and rhythm with a normal S1 and S2. No gallops, murmurs, or rubs. Normal PMI, no JVD. No pulse deficits. Respiratory: Lungs have equal breath sounds bilaterally, clear to auscultation and percussion. No rales, rhonchi or wheezes noted. No increased work of breathing, no retractions or nasal flaring. Abdomen/GI: Soft, non-tender, with normal bowel sounds. No distension or tympany. No guarding or rebound. No evidence of tenderness throughout. Back: No spinal tenderness. No costovertebral tenderness. Full range of motion. Skin: Warm, dry with normal turgor. Normal color with no rashes, no lesions, and no evidence of cellulitis. MS/ Extremity: Pulses equal, no cyanosis. Neurovascular intact. Full, normal range of motion. Neuro: Awake and alert, GCS 15, oriented to person, place, time, and situation. Cranial nerves II-XII grossly intact. Motor strength 5/5 in all extremities. Sensory grossly intact. Cerebellar exam normal. Normal gait. Psych: Awake, alert, with orientation to person, place and time. Behavior, mood, and affect are within normal limits. 18:26 ECG was reviewed by the Attending Physician. [facility] Vital Signs: 19:13 BP 122 / 85; Pulse 89; Resp 12 S; Temp 98.0; Pulse Ox 100% on 2 lpm NC; kh1 MDM: 17:49 Patient medically screened. enio 18:07 Differential diagnosis: arrythmia, OVERMEDICATED, NARCOTICS pulmonary edema, reactive enio airway disease. Antibiotic administration: Not indicated. The patient's Wells Deep Vein Thrombosis Score was calculated as follows: Total Score: 0-2 Pts- Low Risk. The patient's pulmonary embolism risk score was calculated as follows: Total Score: 0-2 points. This patient was found to be at low risk for a pulmonary embolism by using the Well's assessment criteria. Immunization status:. Data reviewed: vital signs, nurses notes, lab test result(s), EKG, radiologic studies. Data interpreted: environmental monitoring specialist: rate is 75 beats/min, rhythm is regular, Pulse oximetry: on room air is 95 %. Test interpretation: by ED physician or midlevel provider: ECG, plain radiologic studies. Counseling: I had a detailed discussion with the patient and/or guardian regarding: the historical points, exam findings, and any diagnostic results supporting the discharge/admit diagnosis, lab results, radiology results. 02/12 17:50 Order name: Basic Metabolic Panel; Complete Time: 18:59 [facility] 02/12 17:50 Order name: CBC with Diff; Complete Time: 18:43 [facility] 02/12 17:50 Order name: LFT's; Complete Time: 18:59 [facility] 02/12 17:50 Order name: Magnesium; Complete Time: 18:59 [facility] 02/12 17:50 Order name: NT PRO-BNP; Complete Time: 18:59 [facility] 02/12 17:50 Order name: PT-INR; Complete Time: 18:43 [facility] 02/12 17:50 Order name: Troponin (emerg Dept Use Only); Complete Time: 18:59 [facility] 02/12 17:50 Order name: XRAY Chest (1 view) [facility] 02/12 18:43 Order name: RAD; Complete Time: 18:43 [facility] 02/12 21:17 Order name: Glucose, Ancillary Testing [facility] 02/12 17:50 Order name: EKG; Complete Time: 17:51 [facility] 02/12 17:50 Order name: Cardiac monitoring; Complete Time: 18:26 [facility] 02/12 17:50 Order name: EKG - Nurse/Tech; Complete Time: 18:26 [facility] 02/12 17:50 Order name: IV Saline Lock; Complete Time: 18:26 [facility] 02/12 17:50 Order name: Labs collected and sent; Complete Time: 18:26 [facility] 02/12 17:50 Order name: O2 Per Protocol; Complete Time: 18:26 [facility] 02/12 17:50 Order name: O2 Sat Monitoring; Complete Time: 18:26 [facility] 02/12 17:50 Order name: Urine Dipstick-Ancillary (obtain specimen) [facility] EC:26 Rate is 91 beats/min. Rhythm is regular. QRS [place] is Normal. RI interval is normal. QRS enio interval is normal. QT interval is normal. No Q waves. T waves are Normal. No ST changes noted. Clinical impression: NSR w/ Non-specific ST/T Changes and No evidence of ischemia. Interpreted by me. Reviewed by me. Administered Medications: 19:02 CANCELLED (Other Intervention Used): Potassium Chloride 40 mEq PO once la1 19:08 Drug: NS 0.9% 1000 ml Route: IV; Rate: 125 ml/hr; Site: left forearm; [facility] 22:26 Follow up: IV Status: Completed infusion 5 19:08 Drug: ProTONIX (pantoprazole) 40 mg Route: IVP; Site: left forearm; [facility] 22:26 Follow up: Response: No adverse reaction 5 19:08 CANCELLED (Duplicate Order): Potassium Effervescent Tablet 50 mEq PO once; dissolve in [facility] 4 ounces of water or juice 19:40 Drug: Magnesium Sulfate 1 grams Route: IVPB; Infused Over: 1 hrs; Site: left bc5 antecubital; 22:26 Follow up: IV Status: Completed infusion bc5 20:33 Not Given (Discussed other fluid with Provider Jeffrey doc in [facility]): NS 0.9% 500 ml bc5 IV at bolus once 21:24 Drug: Potassium Chloride 20 mEq Route: IV; Rate: calculated rate; Site: right bc5 antecubital; Disposition Summary: 02/12/21 18:11 Hospitalization Ordered Hospitalization Status: Observation enio Provider: Simeon Poe enio Condition: Stable enio Problem: new enio Symptoms: have improved enio Bed/Room Type: Standard enio Location: Telemetry/MedSurg (observation)(02/12/21 23:02) mw Room Assignment: 220(02/12/21 23:02) mw Diagnosis - Respiratory arrest - NARCOTIC enio - Type 2 diabetes mellitus with hyperglycemia enio - Essential (primary) hypertension enio - Hypokalemia enio - Hypomagnesemia enio Forms: - Medication Reconciliation Form enio - SBAR form eino Signatures: Dispatcher [employer] EDMS Carli Mari RN RN Shane Ortez MD MD cha Attema, Lee, PILL MAKER-C PILL MAKER-Cla1 Demetrius Martinez RN RN lisa7 Jennifer Sterling [facility] Stephanie Diamond, RN RN bc5 Corrections: (The following items were deleted from the chart) 19:02 19:01 Potassium Chloride 40 mEq PO once ordered. la1 la1 19:08 19:08 Potassium Effervescent Tablet 50 mEq PO once; dissolve in 4 ounces of water or enio juice ordered. enio 19:29 18:11 Telemetry/MedSurg (observation) enio mw 19:29 18:11 enio mw 23:02 19:29 [facility] ER HOLD mw mw 23:02 19:29 ERHOLD- mw mw
[2021-02-12 18:29] LABS: Absolute Lymphocytes (CBC) 1.4 K/uL (0.7-4.9); Basophils % 1.1 % (0-1.3); Hematocrit 30.9 % (39.6-49.0); Lymphocytes % 19.7 % (15.3-44.8); MPV 7.7 fL (7.6-11.3); RBC Red Blood Cell Count 3.37 M/uL (4.33-5.43)
[2021-02-12 18:39] LABS: Protime INR 1.05
--- NOTE | 2021-02-12 18:42 | RAD REPORT ---
EXAM DESCRIPTION: Homero Single View02/12/2021 6:29 pm CLINICAL HISTORY: cough COMPARISON: January 30, 2021 FINDINGS: The lungs appear clear of acute infiltrate. The heart is normal size IMPRESSION: No acute abnormalities displayed
[2021-02-12] MEDS ORDERED: PANTOPRAZOLE 40 MG INJ ONE ×2 (18:53→21:30)
[2021-02-12] MEDS ORDERED: NA CHLORIDE 0.9% 1,000 ML ONE ×2 (18:53→22:14)
[2021-02-12 18:57] LABS: ALT/SGPT 328 U/L (12-78); Albumin 2.2 g/dL (3.4-5.0); Alkaline Phosphatase 73 U/L (45-117); BUN Blood Urea Nitrogen 21 mg/dL (7-18); Bicarbonate 22 mmol/L (21-32); Bilirubin Direct < 0.1 mg/dL (0-0.2); Bilirubin Total 0.1 mg/dL (0.2-1.0); Glucose Level 96 mg/dL (74-106); Magnesium 1.6 mg/dL (1.8-2.4); NT PRO-BNP 44 pg/mL (<125); Potassium 3.3 mmol/L (3.5-5.1); Protein, Total 5.9 g/dL (6.4-8.2); Sodium Level 147 mmol/L (136-145); Troponin (Emerg Dept Use Only) < 0.02 ng/mL (0.0-0.045)
[2021-02-12 18:59] LABS: AST/SGOT 330 U/L (15-37)
--- NOTE | 2021-02-12 19:12 | P.HP ---
Certification for Inpatient Patient admitted to: Observation With expected LOS: <2 Midnights Patient will require the following post-hospital care: None Practitioner: I am a practitioner with admitting privileges, knowledge of patient current condition, hospital course, and medical plan of care. Services: Services provided to patient in accordance with Admission requirements found in Title 42 Section 412.3 of the Code of Federal Regulations Patient History Date of Service: 02/12/21 Reason for admission: Respiratory arrest History of Present Illness: 40-year-old male with history of diabetes metas type I, diabetic foot ulceration with osteomyelitis, gastroparesis, esophagitis/gastritis/duodenitis, hiatal hernia and hypertension presented to the emergency department after suffering respiratory arrest in PACU after amputation of the right third and fourth toes secondary to osteomyelitis. After surgery patient reportedly received multiple doses of IV narcotic pain medication including fentanyl and Dilaudid, patient experienced respiratory arrest was found to be cyanotic there was question about if he had a pulse or not so short episode of CPR was performed, at time of evaluation by ED physician at bedside in PACU patient had a strong bounding pulse, responded well to Narcan and is currently alert, oriented x3. Patient was transported to the emergency room for evaluation vital signs were stable labs were significant for hemoglobin 10 hematocrit 30.9 sodium 147 chloride 118 BUN 21 calcium 6.9corrected calcium 8.2 magnesium 1.6 AST 330 ALT 328, elevation in LFTs is new when compared to admission earlier this month. Chest x-ray without any acute findings, patient currently at baseline mental status oriented x3 and vital signs are stable. Patient complaining of pain postoperative to the right lower extremity. Will admit to the ICU for close monitoring overnight. Allergies metoclopramide [From Reglan] Adverse Reaction (Intermediate, Verified 02/11/21 14:08) involuntary spasms clonidine Adverse Reaction (Verified 02/11/21 14:08) severe anxiety prochlorperazine [From Compazine] Adverse Reaction (Verified 02/11/21 14:08) severe anxiety Home Medications: Insulin Aspart [Novolog] 10 ml SQ ACHS 01/24/21 Insulin Glargine,Hum.rec.anlog [Lantus] 100 units SQ BEDTIME 01/24/21 Lisinopril/Hydrochlorothiazide [Lisinopril-Hctz 10-12.5 mg Tab] 1 tab PO BEDTIME PRN 01/24/21 Nortriptyline HCl [Pamelor] 1 tab PO BEDTIME 01/24/21 Rosuvastatin [Crestor*] 5 mg PO BEDTIME 01/24/21 Zolpidem Tartrate 1 tab PO BEDTIME 01/24/21 Codeine/APAP [Tylenol #3*] 1 tab PO Q6H PRN 5 Days #15 tab 02/01/21 Collagenase [Santyl Ointment*] 1 appl TOP DAILY tube 02/01/21 Erythromycin Base [Erythromycin] 250 mg PO TIDWM 10 Days #30 tablet 02/01/21 Pantoprazole [Protonix Tab*] 40 mg PO BID 30 Days #60 tab 02/01/21 Promethazine Tab [Phenergan] 25 mg PO Q6HP PRN 5 Days #20 tab 02/01/21 Sucralfate [Carafate] 1 gm PO TID 30 Days #90 tablet 02/01/21 - Past Medical/Surgical History -: T1DM -: gastoparesis -: neuropathy -: HLD -: HTN -: R foot diabetic ulcer debridement -: cholecystectomy -: gastroneuro stimulator implant -: multiple vascular procedures on R leg Psychosocial/ Personal History: Lives at home with family - Family History Family History: Reviewed- Non-Contributory - Social History Smoking Status: Never smoker Alcohol use: No CD- Drugs: No Caffeine use: Yes Place of Residence: Home Review of Systems 10-point ROS is otherwise unremarkable Musculoskeletal: Foot Pain, As per HPI Physical Examination - Physical Exam General: Alert, In no apparent distress, Oriented x3 HEENT: Atraumatic, PERRLA, Mucous membr. moist/pink, EOMI, Sclerae nonicteric Neck: Supple, 2+ carotid pulse no bruit, No LAD, Without JVD or thyroid abnormality Respiratory: Clear to auscultation bilaterally, Normal air movement Cardiovascular: Regular rate/rhythm, Normal S1 S2 Gastrointestinal: Normal bowel sounds, No tenderness Musculoskeletal: No tenderness, Other (Dressing to right foot status post third and fourth toe amputation) Integumentary: No rashes Neurological: Normal speech, Normal strength at 5/5 x4 extr, Normal tone, Normal affect Lymphatics: No axilla or inguinal lymphadenopathy - Studies Laboratory Data (last 24 hrs) 02/12/21 18:11: PT 12.1, INR 1.05 02/12/21 18:11: WBC 7.20, Hgb 10.0 L, Hct 30.9 L D, Plt Count 311 02/12/21 18:11: Sodium 147 H, Potassium 3.3 L, BUN 21 H, Creatinine 0.60, Glucose 96, Magnesium 1.6 L D, Total Bilirubin 0.1 L, AST 330 H* D, ALT 328 H* D, Alkaline Phosphatase 73 Assessment and Plan - Plan Assessment: Respiratory arrest secondary to accidental opioid overdose after surgical amputation of right third and fourth toe for osteomyelitis Diabetes type 1 Elevated LFT GERD/gastroparesis/esophagitis/gastritis/duodenitis/hiatal hernia Hypertension Hypomagnesemia Hypokalemia Plan: Respiratory arrest secondary to accidental opioid overdose after surgical amputation of right third and fourth toe for osteomyelitis: Patient currently awake, alert, already x3 with vital signs stable. Continue to monitor closely on telemetry overnight, as needed Narcan. Patient believes this is likely related to fentanyl as he has had Dilaudid at significant doses many many times the past without any rest or depression. Will write for medication strictly as an as needed basis. Patient educated about need for limiting opioids at this time even when he has postoperative pain. Cardiology consult in place as well. Diabetes type 1: [facility] Accu-Chek, sliding scale insulin. Elevated LFT: Uncertain etiology, will obtain ultrasound. GERD/gastroparesis/esophagitis/gastritis/duodenitis/hiatal hernia: Continue Protonix 40 mg IV twice daily, other home medications. As needed medication for nausea/vomiting. Hypertension: Continue home medications Hypomagnesemia: Treat per protocol Hypokalemia: Treat per protocol DVT PPX: Lovenox Code status:full Discharge Plan: Home Plan to discharge in: 24 Hours - Advance Directives Does patient have a Living Will: No Does patient have a Durable POA for Healthcare: No - Code Status/Comfort Care Code Status Assessed: Yes (Full code) Critical Care: No Time Spent Managing Pts Care (In Minutes): 55
[2021-02-12 19:44] VITALS: BMI 23.7
[2021-02-12] MEDS ORDERED: NALOXONE 0.4 MG/ML VIAL IV PRN (19:44)
[2021-02-12] MEDS ORDERED: SODIUM CHLORIDE 0.9% 10ML INJ IV PRN (19:44)
[2021-02-12] MEDS ORDERED: NA CHLORIDE 0.9% 1,000 ML IV SCH (19:44)
[2021-02-12] MEDS ORDERED: PROMETHAZINE INJ 25 MG/ML AMP ONE (20:18)
[2021-02-12] MEDS ORDERED: Magnesium Sulfate 2gm IVPB 0 G/0 ML BAG IV ONE (20:19)
[2021-02-12] MEDS ORDERED: MAGNESIUM SULFATE 1 gm IVPB 1 GM/100 ML BAG IV ONE (20:25)
[2021-02-12] MEDS: PROMETHAZINE INJ 25 MG/ML AMP IV PRN (20:34)
[2021-02-12] MEDS: INSULIN -REGULAR HUMAN 50 UNIT/0.5 ML ML SQ SCH (21:00)
[2021-02-12] MEDS: PANTOPRAZOLE 40 MG INJ IVP SCH (21:00)
[2021-02-12] MEDS ORDERED: HYDROMORPHONE HCL 0.5 MG/0.5 ML INJ ONE (21:21)
[2021-02-12] MEDS ORDERED: NS KCL 20MEQ 1,000 ML IV ONE (21:22)
[2021-02-12] MEDS: HYDROMORPHONE HCL 0.5 MG/0.5 ML INJ IV PRN (21:26)
[2021-02-13] MEDS: HYDROMORPHONE HCL 0.5 MG/0.5 ML INJ IV PRN ×4 (01:02→12:54)
[2021-02-13] MEDS: PROMETHAZINE INJ 25 MG/ML AMP IV PRN ×3 (01:56→14:24)
[2021-02-13 02:33] LABS: Urine Appearance CLEAR (Clear); Urine Bilirubin NEGATIVE (Negative); Urine Blood TRACE (Negative); Urine Color YELLOW (Yellow); Urine Glucose NEGATIVE (Negative); Urine Protein 1+ (Negative); Urine Urobilinogen 0.2 mg/dL (0.2-1.0); Urine pH 5.5 (5.0-7.0)
[2021-02-13 02:35] LABS: Urine Microscopic Reflex ORDER UMIC
[2021-02-13 02:57] LABS: Urine Bacteria <20 /HPF (NONE SEEN); Urine RBC <5 /HPF (NONE SEEN)
[2021-02-13 02:58] LABS: Urine Sperm PRESENT (NONE SEEN)
[2021-02-13 06:22] LABS: Absolute Lymphocytes (CBC) 1.7 K/uL (0.7-4.9); Basophils % 0.5 % (0-1.3); Hematocrit 31.2 % (39.6-49.0); Lymphocytes % 31.8 % (15.3-44.8); MPV 7.7 fL (7.6-11.3); RBC Red Blood Cell Count 3.44 M/uL (4.33-5.43)
[2021-02-13 06:44] LABS: ALT/SGPT 294 U/L (12-78); AST/SGOT 229 U/L (15-37); Albumin 2.7 g/dL (3.4-5.0); Alkaline Phosphatase 89 U/L (45-117); BUN Blood Urea Nitrogen 17 mg/dL (7-18); Bicarbonate 25 mmol/L (21-32); Bilirubin Total 0.2 mg/dL (0.2-1.0); Glucose Level 170 mg/dL (74-106); Potassium 3.9 mmol/L (3.5-5.1); Protein, Total 7.4 g/dL (6.4-8.2); Sodium Level 143 mmol/L (136-145)
[2021-02-13] MEDS: INSULIN -REGULAR HUMAN 50 UNIT/0.5 ML ML SQ SCH ×2 (07:30→11:30)
[2021-02-13] MEDS: PANTOPRAZOLE 40 MG INJ IVP SCH (08:21)
[2021-02-13] MEDS ORDERED: POTASSIUM CL SA 10 MEQ TAB PO ONE (09:00)
[2021-02-13] MEDS ORDERED: ENOXAPARIN 40 MG/0.4 ML SQ SCH (09:00)
--- NOTE | 2021-02-13 09:01 | RAD REPORT ---
EXAM DESCRIPTION: US - Abdomen Exam Limited - 02/12/2021 10:28 pm CLINICAL HISTORY: Elevated LTF COMPARISON: Abdomen Pelvis W Contrast dated 01/23/2021 FINDINGS: Cholecystectomy. The common bile duct is normal measuring 3 mm. The liver demonstrates no findings of intrahepatic biliary dilatation. No suspicious liver masses. Th e echotexture is normal. The liver is normal in size. IMPRESSION: Cholecystectomy. No intra- or extrahepatic biliary ductal dilatation. Unremarkable appea heriberto of the liver.
[2021-02-13 10:47] VITALS: O2SAT 97
--- NOTE | 2021-02-13 12:24 | CON ---
Date of Consultation: 02/13/2021 Reason For Consultation: Respiratory arrest. History Of Present Illness: Mr. Lee is a 40-year-old. Has a history of diabetes, hypertension, g astroparesis, neuropathy, peripheral arterial disease, status post third and fourth toe amputation. Apparently received narcotics and had a respiratory arrest. He was not required to be intubated. He was basically treated with respiratory assistance. I was consulted because of his respiratory arres t, but the patient denied any chest pain. There were no arrhythmias. He denied PND, orthopnea, peda l edema, palpitation. Denied any cardiac history. Past Medical History: As stated above. Allergies: INCLUDE CLONIDINE, REGLAN, AND COMPAZINE. Review of Systems: Negative. Social History: Negative. Family History: Noncontributory. Medications: At home include insulin, Protonix, Crestor, Ambien, Carafate, Tylenol No.3, Pamelor, an d lisinopril with hydrochlorothiazide. Physical Examination: Vital Signs: He was complaining of aches and pains all over, but his blood pressure was 160/100. Hi s pulse was 103, in sinus tach. HEENT: Negative. Neck: Supple with no bruit. Chest: Clear. Cardiac: Revealed a regular rhythm and rate. No murmurs, gallops, or rubs. Abdomen: Benign. Extremities: Revealed status post surgery on his right foot. No edema. Impression And Plan: 1.Respiratory arrest secondary to narcotic overdose. No arrhythmias. No elevation in his troponin. This is not a cardiac event. I would continue present regimen. 2.Hypokalemia, needs to be corrected. 3.Hypomagnesemia, needs to be corrected. 4.Hypocalcemia, needs to be corrected. 5.Elevated liver function tests, probably secondary to medication and possibly secondary to the resp iratory arrest. I would continue his treatment for diabetes and hypertension, gastroparesis, and steffi ropathy. No further cardiac workup recommended at this point. He can go home whenever it is okay wi Dr. Sorenson and Dr. Poe. NB/MODL Voice ID: [id number] Report ID: [id number]
[2021-02-13] MEDS ORDERED: HYDRALAZINE HCL 20 MG/ML VIAL IV ONE (12:33)
[2021-02-13 13:45] VITALS: TEMP 97.2
[2021-02-13 14:28] VITALS: BP 181/96
[2021-02-13] MEDS ORDERED: NA CHLORIDE 0.9% 1,000 ML IV ONE (14:59)
--- NOTE | 2021-02-13 20:35 | P.DS ---
Admission Date: 02/12/21 Discharge Date: 02/13/21 Disposition: ROUTINE DISCHARGE Discharge Condition: GOOD Reason for Admission: Respiratory arrest Consultations: Cardiology - Dr. Puri General Surgery - Dr. Sorenson Procedures: CXR (02/12): FINDINGS: The lungs appear clear of acute infiltrate. The heart is normal size IMPRESSION: No acute abnormalities displayed RUQ U/S (02/12): FINDINGS: Cholecystectomy. The common bile duct is normal measuring 3 mm. The liver demonstrates no findings of intrahepatic biliary dilatation. No suspicious liver masses. The echotexture is normal. The liver is normal in size. IMPRESSION: Cholecystectomy. No intra- or extrahepatic biliary ductal dilatation. Unremarkable appearance of the liver. Problem List Respiratory arrest secondary to accidental opioid overdose after surgical amputation of right third and fourth toe for osteomyelitis Diabetes type 1, insulin dependent Elevated LFTs GERD/gastroparesis/esophagitis/gastritis/duodenitis/hiatal hernia Hypertension Hypomagnesemia Hypokalemia Brief History of Present Illness: 40-year-old male with history of diabetes metas type I, diabetic foot ulceration with osteomyelitis, gastroparesis, esophagitis/gastritis/duodenitis, hiatal hernia and hypertension presented to the emergency department after suffering respiratory arrest in PACU after amputation of the right third and fourth toes secondary to osteomyelitis. After surgery patient reportedly received multiple doses of IV narcotic pain medication including fentanyl and Dilaudid, patient experienced respiratory arrest was found to be cyanotic there was question about if he had a pulse or not so short episode of CPR was performed, at time of evaluation by ED physician at bedside in PACU patient had a strong bounding pulse, responded well to Narcan and is currently alert, oriented x3. Patient was transported to the emergency room for evaluation vital signs were stable labs were significant for hemoglobin 10 hematocrit 30.9 sodium 147 chloride 118 BUN 21 calcium 6.9corrected calcium 8.2 magnesium 1.6 AST 330 ALT 328, elevation in LFTs is new when compared to admission earlier this month. Chest x-ray without any acute findings, patient currently at baseline mental status oriented x3 and vital signs are stable. Patient complaining of pain postoperative to the right lower extremity. Will admit to the ICU for close monitoring overnight. Hospital Course: Patient was monitored overnight on telemetry without any events. He did well post-operatively, only reporting some R foot pain. Cardiology was consulted and felt this was not a cardiac event and recommended no further cardiac workup. Neri kingsley felt much better and back to his typical self the following day. He was noted to have elevated LFTs, which improved by the following morning. These were further evaluated by a RUQ U/S which was normal. It was felt the rise in LFTs may be medicine related or, more likely, secondary to his respiratory arrest episode. He was deemed stable for discharge. Dr. Sorenson sent the patient prescriptions for pain medication and antibiotics. Vital Signs/Physical Exam: Temp Pulse Resp BP Pulse Ox 97.2 F 118 H 18 181/96 H 99 02/13/21 12:00 02/13/21 12:00 02/13/21 12:00 02/13/21 14:28 02/13/21 12:00 General: Alert, In no apparent distress, Oriented x3 HEENT: Mucous membr. moist/pink, Sclerae nonicteric Neck: Supple Respiratory: Clear to auscultation bilaterally, Normal air movement Cardiovascular: No edema, Regular rate/rhythm Gastrointestinal: Soft and benign, Non-distended, No tenderness Musculoskeletal: Other (R foot with surgical dressing in place, c/d/i) Integumentary: No rashes Neurological: Normal speech, Normal affect Laboratory Data at Discharge: WBC 5.50 K/uL (4.3-10.9) D 02/13/21 05:39 Hgb 10.4 g/dL (13.6-17.9) L 02/13/21 05:39 Hct 31.2 % (39.6-49.0) L 02/13/21 05:39 Plt Count 365 K/uL (152-406) 02/13/21 05:39 PT 12.1 SECONDS (9.5-12.5) 02/12/21 18:11 INR 1.05 02/12/21 18:11 Sodium 143 mmol/L (136-145) 02/13/21 05:39 Potassium 3.9 mmol/L (3.5-5.1) 02/13/21 05:39 BUN 17 mg/dL (7-18) 02/13/21 05:39 Creatinine 0.76 mg/dL (0.55-1.3) 02/13/21 05:39 Glucose 170 mg/dL (74-106) H 02/13/21 05:39 Magnesium 1.6 mg/dL (1.8-2.4) L D 02/12/21 18:11 Total Bilirubin 0.2 mg/dL (0.2-1.0) 02/13/21 05:39 AST 229 U/L (15-37) H D 02/13/21 05:39 ALT 294 U/L (12-78) H 02/13/21 05:39 Alkaline Phosphatase 89 U/L (45-117) 02/13/21 05:39 Home Medications: Insulin Aspart [Novolog] 30 unit SQ AC 01/24/21 Insulin Glargine,Hum.rec.anlog [Lantus] 100 units SQ BEDTIME 01/24/21 Lisinopril/Hydrochlorothiazide [Lisinopril-Hctz 10-12.5 mg Tab] 1 tab PO BEDTIME PRN 01/24/21 Nortriptyline HCl [Pamelor] 50 mg PO BEDTIME 01/24/21 Rosuvastatin [Crestor*] 5 mg PO BEDTIME 01/24/21 Zolpidem Tartrate 10 mg PO BEDTIME 01/24/21 Codeine/APAP [Tylenol #3*] 1 tab PO Q6H PRN 5 Days #15 tab 02/01/21 Collagenase [Santyl Ointment*] 1 appl TOP DAILY tube 02/01/21 Pantoprazole [Protonix Tab*] 40 mg PO BID 30 Days #60 tab 02/01/21 Promethazine Tab [Phenergan*] 25 mg PO Q6HP PRN 5 Days #20 tab 02/01/21 Sucralfate [Carafate] 1 gm PO TID 30 Days #90 tablet 02/01/21 Physician Discharge Instructions: You were monitored overnight without any acute events. Cardiology was consulted and recommended no further workup /evaluation at this time. Your respiratory arrest episode was likely provoked by the anesthesia medication you received and pain medication. You were found to have elevated LFTs (liver function tests), which improved the following morning. A liver ultrasound was normal. The elevated LFTs were likely related to the respiratory arrest episode. Recommend following up with your PCP and having LFTs rechecked in 1-2 weeks to ensure continued improvement. Follow up with Dr. Sorenson as previously discussed with him. Diet: ADA Activity: per Dr. Sorenson Followup: Darryn Sorenson MD [ACTIVE - CAN ADMIT] - 1-2 Weeks (call to schedule an appointment for follow up) Unknown,U [Primary Care Provider] - Time spent managing pt's care (in minutes): 40
--- NOTE | 2021-02-14 12:23 | P.PN ---
Subjective Date of Service: 02/13/21 Chief Complaint: Respiratory arrest Subjective: Improving Patient feels well with pain medication, and has no residual complaints Physical Examination - Vital Signs Temperature: 97.2 F Blood Pressure: 181/96 Pulse: 118 Respirations: 18 Pulse Ox (%): 99 - Physical Exam General: Alert, In no apparent distress, Oriented x3, Cooperative Respiratory: Clear to auscultation bilaterally, Normal air movement Cardiovascular: Regular rate/rhythm Musculoskeletal: Other (surgical dressing in place, clean and dry) Assessment And Plan - Plan - ok to DC home from surgical standpoint when cleared by Dr. Mayo - will follow up in my clinic this week - return to ER or call 911 with any concerns - wound care form given to patient - antibiotics and pain medication sent to pharmacy
--- NOTE | 2021-02-14 14:20 | CON ---
Date of Consultation: 02/12/2021 Brief History Of Present Illness: The patient is a 40-year-old male, brought to the hospital for joahn nned surgical intervention for amputation of 2 toes of his foot due to osteomyelitic and gangrenous c hanges and ongoing infection. He did well from the surgical standpoint, underwent his amputation and went to the PACU where he had some increased pain. He was given some pain medications and transferr ed to Day Surgery to transition to going home. He received an additional dose of pain medication, na rcotic in nature with combination fentanyl and Dilaudid where he experienced respiratory rest. As betancourt hans, a Code Blue was called on the patient. As he had a respiratory arrest, CPR was performed. He wa s evaluated by the ER physician. I was notified after the fact after the patient was awake and orien ghazala and had return of pulse, although where the nurses were unsure if there was a loss of pulse or no t, the patient definitely had a respiratory arrest. At the time of my entering the room, the patient was awake and conversant with me. Therefore, I found it unlikely that he in fact had a true arrest of his heart. I think he seemingly had more of respiratory depressions likely due to the medications /narcotics given. Past Medical History: Diabetes, gastropathy, neuropathy, hyperlipidemia, hypertension. Past Surgical History: Includes right foot surgery, right toe amputation, cholecystectomy, gastric n eural stimulator, multiple vascular procedures on the right lower extremity. Allergies: INCLUDE REGLAN, CLONIDINE, AND COMPAZINE. HE ALSO DOES NOT LIKE NORCO BECAUSE IT MAKES H IS STOMACH FEEL UNCOMFORTABLE AND NAUSEATED. Home Medications: Include insulin, Lantus, lisinopril, Pamelor, Crestor, Ambien, Tylenol 3, Santyl, erythromycin, Protonix, Phenergan, Carafate. Social History: He denies smoking, alcohol, or recreational drug use Review of Systems: Ten-point review of systems other than HPI, denies. Physical Examination: General: At the time of my examination, he is awake, alert, and oriented x3. He has slow mentation at this time. HEENT: Otherwise normocephalic. Sclerae anicteric. Mucous membranes moist. Oropharynx clear. Neck: Supple without JVD. Chest: Normal to expansion and excursion. Cardiovascular: Regular rate and rhythm. Pulmonary: Clear to auscultation bilaterally. Abdomen: Soft, nontender. His postsurgical dressings are still in place. I have not unwrapped thes e. Assessment And Plan: 1.This is a 40-year-old male, who postoperatively received a large amount of narcotic medications af ter a surgical procedure. He was awake, oriented, and then received additional pain medication in th e form of fentanyl and Dilaudid, ultimately experienced respiratory depression, was reversed with Zacarias can and had a respiratory arrest, but was supported with interventions, CPR and now he is awake, aler t, and oriented, talking with me. 2.We will ask the hospitalist to admit the patient for ongoing evaluation. 3.Registered Radiographer consultation with Dr. Puri. 4.The patient will be placed for observation over the course of the evening and if he continues to i mprove and has cardiac clearance, we will consider letting him go home tomorrow. I have explained th e risks, benefits, and alternatives of the above stated plan. The patient agrees to proceed as indic ated. Thank you the consult. TYESHA/ANNA Voice ID: [id number] Report ID: [id number]
== END 2021-02-13 15:00 | disposition home health service (06) | DRG 917 ==
LOC: ER 17:48 → ERHOLD 18:16 → 2ND 23:06
PROVIDERS: ADMIT Hospitalist; ATTEND Hospitalist
DX: T40.411A Poisoning by fentanyl or fentanyl analogs, accidental (unintentional), initial encounter (principal); R09.2 Respiratory arrest; T40.2X1A Poisoning by other opioids, accidental (unintentional), initial encounter; Y92.238 Other place in hospital as the place of occurrence of the external cause; E10.9 Type 1 diabetes mellitus without complications; R79.89 Other specified abnormal findings of blood chemistry; K21.9 Gastro-esophageal reflux disease without esophagitis; K44.9 Diaphragmatic hernia without obstruction or gangrene; K31.84 Gastroparesis; K20.90 Esophagitis, unspecified without bleeding; K29.70 Gastritis, unspecified, without bleeding; K29.80 Duodenitis without bleeding; I10 Essential (primary) hypertension; E87.6 Hypokalemia; E83.42 Hypomagnesemia; E83.51 Hypocalcemia; Z89.421 Acquired absence of other right toe(s)
CPT/HCPCS: 36415; 70450; 71045; 72125; 76705; 80048; 80053; 80076; 81003; 81015; 82947; 83735; 83880; 84484; 85025; 85610; 87070; 87075; 87205; 88302; 88304; 88305; 88311; 93926; 99284; C9113; J0330; J0360; J0690; J1170; J1650; J2250; J2310; J2370; J2405; J2550; J2704; J3010; J3475; J3480; J7030; U0003

== ENCOUNTER 2021-02-15 18:09 | Emergency (ER) | payer OTHER ==
[2021-02-15] MEDS ORDERED: MEPERIDINE HCL 25 MG/ML SYR ONE (19:41)
--- NOTE | 2021-02-15 19:45 | EDPHYS ---
Physician Documentation [facility] Name: Christian Lee Age: 40 yrs Sex: Male : 1980 Arrival Date: 02/15/2021 Time: 18:13 Bed 15 Private MD: ED Physician Enrrique Poe HPI: 02/15 19:05 This 40 yrs old Male presents to ER via Wheelchair with complaints of Post cp Surgical Bleeding - foot sx 02/12. 19:05 Patient presents to ED for recheck of: surgical wound to right foot. S/p 2nd to 4th toe cp amputation on 02-12-[address] Sorenson. 19:05 Patient reports he was changing the dressing today on his right, when he started having cp increased bleeding and increased pain. Patient reports he noticed the blood spurting out and the wound seemed to be bleeding heavily. Patient denies any dizziness and or syncope. Historical: - Allergies: 18:25 Clonidine; iw 18:25 Compazine; iw 18:25 [place]; GI problems; iw 18:25 Reglan; iw 18:25 tramadol; GI problems; iw - PMHx: 18:25 diabetes mellitus; Gastroparesis; Hypertensive disorder; insomnia; neuropathy; iw - PSHx: 18:25 3rd and 4th toe amputation to Right foot; 2nd toe amputation R foot; iw - Immunization history:: Client reports receiving the 2nd dose of the Covid vaccine. - Social history:: Smoking status: Patient denies any tobacco usage or history of. ROS: 19:10 Constitutional: Negative for body aches, chills, fever. cp 19:10 Cardiovascular: Negative for chest pain. cp 19:10 Respiratory: Negative for cough, shortness of breath, wheezing. 19:10 Abdomen/GI: Negative for abdominal pain, nausea, vomiting, and diarrhea. 19:10 Skin: Positive for surgical wound to right foot. 19:10 Neuro: Negative for dizziness, headache, syncope, weakness. 19:10 All other systems are negative. Exam: 19:15 Constitutional: The patient appears in no acute distress, alert, awake, cp non-diaphoretic, non-toxic, well developed, well nourished. 19:15 Head/Face: Normocephalic, atraumatic. cp 19:15 Cardiovascular: Rate: tachycardic, Rhythm: regular. 19:15 Respiratory: the patient does not display signs of respiratory distress, Respirations: normal, no use of accessory muscles, no retractions, labored breathing, is not present. 19:15 Skin: Wound recheck: amputation site to right foot, Wound appears to be healing well there is some mild to moderate bleeding from the surgical site, mild swelling. Wound area is not warm to the touch and there is no purulent drainage.. Vital Signs: 18:23 BP 117 / 86; Pulse 116; Resp 18; Temp 97.5; Pulse Ox 98% ; Weight 85.28 kg; Height 6 iw ft. 1 in. (185.42 cm); Pain 8/10; 20:09 BP 128 / 78; Pulse 96; Resp 17; Temp 98.1; Pulse Ox 98% on R/A; mr2 18:23 Body Mass Index 24.80 (85.28 kg, 185.42 cm) iw MDM: 18:56 Patient medically screened. cp 19:44 Data reviewed: vital signs, nurses notes. cp 19:44 Counseling: I had a detailed discussion with the patient and/or guardian regarding: the cp historical points, exam findings, and any diagnostic results supporting the discharge/admit diagnosis, the need for outpatient follow up, a general surgeon, to return to the emergency department if symptoms worsen or persist or if there are any questions or concerns that arise at home. Response to treatment: the patient's symptoms have markedly improved after treatment, and as a result, I will discharge patient. ED course: Wound is redressed using Surgicel and pressure type dressing of 4 x 4 and [place]. Patient observed in the ER and bleeding appears controlled there is no saturation applied to the dressing. Patient given IM pain meds and will discharge to home for continued monitoring with instructions to follow-up as scheduled on Thursday with Dr. Mckenzie. Patient instructed to keep area elevated and monitor for worsening symptoms.. Administered Medications: 19:23 Drug: Demerol (meperidine) 25 mg Route: IM; Site: left deltoid; mr2 Disposition: 19:50 Chart complete. cp Disposition Summary: 02/15/21 19:44 Discharge Ordered Location: Home cp Problem: new cp Symptoms: have improved cp Condition: Stable cp Diagnosis - Encounter for change or removal of surgical wound dressing cp Followup: cp - With: Darryn Sorenson MD - When: 2 - 3 days - Reason: Wound Recheck Forms: - Medication Reconciliation Form cp - Thank You Letter cp - Antibiotic Education cp - Prescription Opioid Use cp Addendum: 02/18/2021 07:00 Co-signature as Attending Physician, Enrrique Poe MD I agree with the assessment and r n plan of care. Attestation: The patient's history, exam findings, diagnostics, and a summary of any interventions or procedures was reviewed in detail with Shane GODOY. Signatures: Katelynn Miguel, RN Enrrique Walton MD MD rn Page, Corey, PA PA cp Scott Montejo RN RN mr2
--- NOTE | 2021-02-15 19:45 | ER ---
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 Started iw shooting blood across the room and very painful now. Coronavirus screen: Client denies travel out of the [place] in the last 14 days. At this time, the client does not indicate any symptoms associated with coronavirus-19. Ebola Screen: Patient denies travel to an Ebola-affected area in the 21 days before illness onset. Initial Sepsis Screen: Does the patient meet any 2 criteria? HR > 90 bpm. No. Patient's initial sepsis screen is negative. Does the patient have a suspected source of infection? Yes: Skin breakdown/wound. Risk Assessment: Do you want to hurt yourself or someone else? Patient reports no desire to harm self or others. Onset of symptoms was February 15, 2021. 18:23 Method Of Arrival: Wheelchair iw 18:23 Acuity: IRINEO 3 iw Historical: - Allergies: 18:25 Clonidine; iw 18:25 Compazine; iw 18:25 [place]; GI problems; iw 18:25 Reglan; iw 18:25 tramadol; GI problems; iw - PMHx: 18:25 diabetes mellitus; Gastroparesis; Hypertensive disorder; insomnia; neuropathy; iw - PSHx: 18:25 3rd and 4th toe amputation to Right foot; 2nd toe amputation R foot; iw - Immunization history:: Client reports receiving the 2nd dose of the Covid vaccine. - Social history:: Smoking status: Patient denies any tobacco usage or history of. Vital Signs: 18:23 BP 117 / 86; Pulse 116; Resp 18; Temp 97.5; Pulse Ox 98% ; Weight 85.28 kg; Height 6 iw ft. 1 in. (185.42 cm); Pain 8/10; 20:09 BP 128 / 78; Pulse 96; Resp 17; Temp 98.1; Pulse Ox 98% on R/A; mr2 18:23 Body Mass Index 24.80 (85.28 kg, 185.42 cm) iw ED Course: 18:13 Patient arrived in ED. as 18:25 Triage completed. iw 18:26 Arm band placed on. iw 18:47 Shane Meeks PA is PHCP. cp 18:47 Enrrique Poe MD is Attending Physician. cp 19:07 Scott Montejo, RN is Primary Nurse. mr2 19:44 Darryn Sorenson MD is Referral Physician. cp Administered Medications: 19:23 Drug: Demerol (meperidine) 25 mg Route: IM; Site: left deltoid; mr2 Outcome: 19:44 Discharge ordered by MD. cp 20:24 Patient left the ED. mr2 Signatures: Willa Toussaint Irene, MOSES RN Shane Meeks PA PA cp Scott Montejo, RN RN mr2
[2021-02-15 20:40] VITALS: O2SAT 98
[2021-02-15 20:42] VITALS: BP 128/78; TEMP 98.1
== END 2021-02-15 20:24 | disposition home or self-care (01) ==
LOC: ER 18:09
DX: Z48.01 Encounter for change or removal of surgical wound dressing (principal); Z89.421 Acquired absence of other right toe(s)
CPT/HCPCS: 96372; 99283; J2175

== ENCOUNTER 2021-09-14 23:33 | Inpatient (IN) | payer OTHER ==
--- OUTSIDE RECORDS SUMMARY | 2021-09-14 23:39 | XMS REPORT | Continuity of Care Document ---
:1980 Author Organization [facility] t Address [address] [place] [address] Care Team Providers Name Role Phone Hardik Rascon MD Primary Care Physician Darwin William Attending Clinician Unavailable Hardik Rascon MD Attending Clinician ZEYAD Attending Clinician Unavailable KNOW Attending Clinician Unavailable Aries Admitting Clinician Unavailable Darwin William Admitting Clinician Unavailable Payers Payer Name Policy Type Policy Number Effective Date Expiration Date S ource GENERIC COMMERCIAL [id number] 2016 00:00:00 MEDICARE-PART B 5 [id number] 2021 00:00:00 Problems Condition Condition Condition Status Onset Resolution Last Treating Co mments Source Name Details Category Date Date Treatment Clinician Date Tachycardi Tachycardi Disease Active U nivers a a 1-24 ity of 00:00: [place] 00 Medical Branch Type 1 Type 1 Disease Active Univers diabetes diabetes 1-24 ity of mellitus mellitus 00:00: [place] with with 00 Medical diabetic diabetic Branch polyneurop polyneurop athy athy Ear pain, Ear pain, Disease Active Uni vers bilateral bilateral 1-24 ity of 00:00: [place] 00 Medical Branch Allergies, Adverse Reactions, Alerts Allergy Allergy Status Severity Reaction(s) Onset Inactive Treating Comm ents Source Name Type Date Date Clinician Hydrocod Propensi Active Other - See Severe U nivers one ty to comments 06-10 stomach ity of adverse 00:00: pain [place] reaction 00 Medical s Branch Metoclop Propensi Active Other - See 0 Involunt a Univers ramide ty to comments 06-10 ry Muscle ity o f adverse 00:00: Spasms [place] reaction Medical s Branch Tramadol Propensi Active Other - See Severe U nivers ty to comments 06-10 stomach ity of adverse 00:00: pain [place] reaction Medical s Branch Clonidin Propensi Active Anxiety 2021-0 Unive rs e ty to 06-10 ity of adverse 00:00: [place] reaction 00 Medical s Branch Prochlor Propensi Active Anxiety 0 Unive rs perazine ty to 06-10 ity of adverse 00:00: [place] reaction 00 Medical s Branch prochlor DA Active MD ITCHING 0 [facility] perazine 08-13 [facility] prochlor DA Active MD 0 [facility] perazine 08-13 [facility] 00:[facility] haloperi DA Active U 2020-0 [facility] dol 01-21 [facility] 00:[facility] haloperi DA Active U STOMACH ACHE 2019-0 [facility] dol 01-21 [facility] 00:[facility] metoclop DA Active U 2020-0 [facility] ramide 11-30 [facility] 00:[facility] metoclop DA Active U JERKS AND 2020-0 [facility] SPASMS 11-30 [facility] 00:[facility] clonidin DA Active U 2020-0 [facility] e 05-20 [facility] 00:[facility] metoclop DA Active U 2020-0 [facility] ramide 05-20 [facility] 00:00: [facility] clonidin DA Active U ANXIETY 2020-0 [facility] e 05-20 [facility] 00:[facility] metoclop DA Active U MUSCLE 2020-0 [facility] ramide SPASMS 05-20 [facility] 00:[facility]: [facility] clonidin DA Active U 2018-0 [facility] e 01-16 [facility] 00:00: [facility] metoclop DA Active U [facility] ramide 01-16 [facility] 00:00: [facility] clonidin DA Active U ANXIETY [facility] e 01-16 [facility] 00:00: [facility] metoclop DA Active U MUSCLE [facility] ramide SPASMS 01-16 [facility] 00:00: [facility] clonidin DA Active U [facility] e 11-25 [facility] 00:00: [facility] metoclop DA Active U [facility] ramide 11-25 [facility] 00:[facility] CLONIDIN Allergy [facility] METOCLOP Allergy Active Other [facility] Social History Social Habit Start Date Stop Date Quantity Comments Source History SDOH [facility] [place] Alcohol Frequency Medical Branch History SDAZ [facility] [place] Alcohol Std Drinks Medica l Branch History [facility] [place] Alcohol Binge Medical Bra formerly [facility] Exposure to 2021-08-25 2021-09-04 Not sure [facility] SARS-CoV-2 (event) 00:00:00 13:09:00 Medica l Branch Alcohol Comment 2021-06-10 2021-06-10 seldomly [facility] 00:00:00 00:00:00 Medical Branch Tobacco use and 2021-05-25 2021-05-25 Never used [facility] exposure 00:00:00 00:00:00 Medical Branch Sex Ass[birth year] At [birth year] [facility] 00:00:00 00:00:00 Medical Branch Smoking Status Start Date Stop Date Source Never smoker [facility] Medical Branch Medications Ordered Filled Start Stop Current Ordering Indication Dosage Frequency Signature Comments Components Source Medication Medication Date Date Medication? Clinician (SIG) Name Name insulin Yes [id number] 30U inject 30 U nivers aspart 4-22 Units ity of RAPID 00:00: under the [place] (NOVOLOG 00 skin 3 Medical U-100 (three) Branch INSULIN times ASPART) 100 daily with unit/mL meals. injection zolpidem 10 Yes [id number] 10mg Take 1 U nivers mg tablet 4-20 tablet by ity o f 00:00: mouth at [place] 00 bedtime. Medical Branch nortriptyli Yes [id number] 50mg Take 1 Univers ne 50 mg 4-20 capsule by ity o f capsule 00:00: mouth at [place] 00 bedtime. Medical Branch insulin 2021- No [id number] 30U inject 30 Univers aspart -20 04-22 Units ity of RAPID 00:00: 00:00 under the [place] (NOVOLOG 00 :00 skin 3 Medical U-100 (three) Branch INSULIN times ASPART) 100 daily with unit/mL meals. injection Insulin 2021- Yes [id number] 50U inject 50 Univers Glargine 4-19 06-19 Units ity of (LANTUS 00:00: 04:59 under the [facility] s SOLOSTAR 00 :00 skin 2 Medical U-100 (two) Branch INSULIN) times 100 unit/mL daily for (3 mL) 60 days. injection famotidine Yes 20mg Take 20 mg U nivers 20 mg 1-24 by mouth ity of tablet 09:08: before [place] [address] meals. Medical Branch rosuvastati Yes Take by Un pasha n 5 mg CpSP 1-24 mouth. ity of 09:08: [place] 44 Medical Branch lisinopriL Yes [id number] 5mg Take 1 U nivers 5 mg tablet 1-24 tablet by ity of 00:00: mouth [place] 00 daily. Medical Branch Immunizations Ordered Filled Immunization Date Status Comments Nico gómez Immunization Name Name SARS-COV-2 COVID-19 2020 Completed Unive rsity of MODERNA VACCINE 00:00:00 [place] Med ical Branch SARS-COV-2 COVID-19 2020-07-27 Completed Unive rsity of MODERNA VACCINE 00:00:00 [place] Med ical Branch Procedures Procedure Date / Time Performed Performing Clinician Nico gómez [id number] 2019-12-05 00:00:00 [facility] Encounters Start End Encounter Admission Attending Care Care Encounter Source Date/Time Date/Time Type Type Clinicians Facility Department ID 2021-02-24 Inpatient UR [facility] [id number] [facility] 2020-08-13 Inpatient [facility] ER [id number] [facility] 17:47:00 [id number] [facility] 2020-06-14 Inpatient [facility] [id number] [facility] 07:47:00 [id number] [facility] 2020-04-18 Inpatient [facility] ER [id number] [facility] 10:19:00 [id number] [facility] 2020-01-22 Inpatient [facility] ER [id number] [facility] 01:29:00 [id number] [facility] 2019-12-01 Inpatient [facility] ER [id number] [facility] 00:13:00 [id number] [facility] 2019-10-15 Inpatient EM Nataliia, [facility] TL2E [id number]- [facility] 13:44:00 [facility] [id number] [facility] 2019-10-13 Inpatient [facility] ER [id number] [facility] 05:33:00 [id number] [facility] 2019-06-13 Inpatient [facility] ER [id number] [facility] 17:11:00 [id number] [facility] 2019-06-01 Inpatient [facility] ER [id number] [facility] 13:21:00 [id number] [facility] 2019-05-22 Inpatient [facility] ER [id number] [facility] 05:31:00 [id number] [facility] 2019-05-20 Inpatient [facility] ER [id number] [facility] 22:15:00 [id number] [facility] 2021-09-06 2021-09-06 [facility] [id number] Univers 00:00:00 00:00:00 [facility] [id number] it y of Hardik TOLBERT [id number] Mati as MARK?BLEA [id number] Me [address] MEDICAL OFFICE BUILDING 2021-09-03 2021-09-03 Outpatient ROCHELLE JEFFERS [id number] 76 [place] 08:45:00 08:45:00 TYREE nieves 2019-12-19 2019-12-19 Outpatient KNOW, [facility] ADMI [id number]- [facility] 23:24:00 23:24:00 DOES_NOT [id number] [facility] Results Test Description Test Time Test Comments Results Result [facility] e Comments - CT ABD PELVIS 2020-08-13 W/CONT 19:35:00 [facility] : 1980 Sex: M Name: RADHA CARPENTER [place] [facility] : 1980 Age/S: 39 / M [address] Unit #: [id number] Loc: [place] [address] Phys: Tony Noriega MD Acct: [id number] Dis Date: Status: PRE ER PHONE #: Exam Date: 08/13/2020 1925 FAX #: Reason: ABD PAIN EXAMS: CPT CODE: [id number] CT ABD PELVIS W/CONT 59667 CT SCAN OF THE ABDOMEN AND PELVIS [...] IMPRESSION: No acute abnormality is demonstrated. at 193 Reported and signed by: BLAS JARA M.D. PAGE 1 Signed Report (CONTINUED) Name: RADHA CARPENTER [place] FSED : 1980 Age/S: 39 / M [address] Unit #: [id number] Loc: [place] [address] Phys: Tony Noriega MD Acct: [id number] Dis Date: Status: PRE ER PHONE #: Exam Date: 08/13/20201923 FAX #: Reason: ABD PAIN EXAMS: CPT CODE: [id number] CT ABD PELVIS W/CONT 65720 <Continued> CC: Galindo Chris MD Technologist:Jamil Cox [...] Suprapubic PainURINE SOURCE: CLEAN CATCH URINEBASIC METABOLIC [id number] 19:30:00 Test Item Value Reference Range Interpretation [...] RESULT BY1.21. [Automated mess age] The system Paice generated this result transmitted ref erence range: >=60. Th e reference range was not used to int erpret this result as normal/abnormal . CREATININE (test code 0.91 mg/dl 0.70-1.30 N = CREAT) CALCIUM (test code = 9.6 mg/dL 8.5-10.1 N CA) LIVER [id number] 19:30:00 Test Item Value Reference Range Interpretation [...] 78 U/L 45-117 N code = ALKP) [id number] 19:30:00 Test Item Value Reference Range Interpretation Comments LIPASE (test code = LIP) 59 U/L 73-393 L [id number] 19:30:00 Test Item Value Reference Range Interpretation [...] >78 ------- [Automa ghazala message] The system Paice generated this result tra nsmitted reference range : <=3.0. The reference range was not used to interpret th is result as normal/abnormal . DRUGS OF ABUSE [id number] 19:08:00 Test Item Value Reference Range Interpretation [...] code = WAS TESTE D AT [facility]) LISTED CUTOFFS DRUG CLASS INITIAL TEST LEVEL AMPHETAMI TED 1000 NG/MLBARBITURAT ES 200 NG/MLBENZODIAZE PIN ES 200 NG/MLCOCAINE METABOLITE 300 NG/MLMARIJUANA METABOLITE 5 0 NG/MLOPIATES 300 NG/MLPHENCYCLID INE 25 NG /ML UA RFLX MICROSCOPIC [id number] 19:05:00 Test Item Value Reference Range Interpretation [...] Suprapubic PainURINE SOURCE: CLEAN CATCH URINEBASIC METABOLIC [id number] 18:20:00 Test Item Value Reference Range Interpretation [...] RESULT BY1.21. [Automated mess age] The system Paice generated this result transmitted ref erence range: >=60. Th e reference range was not used to int erpret this result as normal/abnormal . CREATININE (test code 0.91 mg/dl 0.70-1.30 N = CREAT) CALCIUM (test code = 9.6 mg/dL 8.5-10.1 N CA) LIVER [id number] 18:20:00 Test Item Value Reference Range Interpretation [...] 78 U/L 45-117 N code = ALKP) [id number] 18:20:00 Test Item Value Reference Range Interpretation Comments LIPASE (test code = LIP) 59 U/L 73-393 L CBC W/AUTO [id number] 18:06:00 Test Item Value Reference Range Interpretation [...] (test NO NORMAL code = RBCM) LACTIC [id number] 18:05:00 Test Item Value Reference Range Interpretation Comments LACTIC ACID (test code = LACT) 2.0 mmol/l 0.4-2.0 N [id number] 17:57:00 Test Item Value Reference Range Interpretation Comments GLUBED (test code = GLUBED) 89 mg/dL 70-105 N [id number] 12:05:00 Test Item Value Reference Range Interpretation Comments GLUBED (test code = GLUBED) 314 mg/dL 70-105 H [id number] 12:04:00 Test Item Value Reference Range Interpretation Comments GLUBED (test code = GLUBED) 371 mg/dL 70-105 H LACTIC [id number] 11:41:00 Test Item Value Reference Range Interpretation Comments LACTIC ACID (test code = LACT) 1.5 mmol/l 0.4-2.0 N - CT LOWER EXTRM W/O C [id number] 11:30:00 [facility] RADHA [place] : 1980 Sex: M Name: RADHA CARPENTER Ar[place] FSED : 1980Age/S: 39 / M [address] Unit #: [id number] Loc: [place] [address] Phys: Tony Noriega MD Acct: [id number] Dis Date: Status: REG ER PHONE#: Exam Date: 06/14/2020 1017 FAX #: Reason:R FOOT SWELLING EXAMS: CPT CODE: [id number] [place] L[place]TR[place] W/[place] [address] - CT LOWER EXTRM W/O C RT [...] M [address] Unit #: [id number] [place]: [place] [address] Phys: Tony Noriega MD Acct: [id number] Dis Date: Status: REG ER PHONE #: Exam Date: 06/14/2020 1017 FAX #: Reason: R FOOT SWELLING EXAMS: CPT CODE: [id number] [place] LOWER EXTRM W/[place] [address] <Continued> CC: Tony Noriega MD; Galindo Chris MD Technologist:Fede Caballero, (R) CT CTDI: 10.53 DLP: 350.96 Trnscb Date/Time: 06/14/2020 (1130) [email or web address] Orig Print D/T: S: 06/14/2020 (9588) PAGE 2 Signed ReportDRUGS OF ABUSE [id number] 10:53:00 Test Item Value Reference Range Interpretation [...] BACK BY DEIRDRE CORRALES 10 52 06/14/20. Kotlon Rodriguez ia POSITIVE URINE DRUG SCREEN MOO [...] 25 NG /ML - CT ABD PELVIS [id number] 09:45:00 [facility] 1980 Sex: M Name: RADHA CARPENTER FSED : 1980Age/S: 39 / M [address] Unit #: [id number] Loc: [place] [address] Phys: [id number] Dis Date: Status: PRE ER PHONE#: Exam Date: 06/14/2020 0918 FAX #: Reason:ABD PAIN EXAMS: CPT CODE: [id number] CT ABD PELVIS W/CONT 28189 CT abdomen and pelvis with contrast 06/14/2020 [...] M [address] Unit #: [id number] Loc: [place] [address] Phys: [id number] Dis Date: Status: PRE ER PHONE #: Exam Date: 06/14/2020 0918 FAX #: Reason: ABD PAIN EXAMS: CPT CODE: [id number] CT ABD PELVIS W/CONT 66567 <Continued> CC: Tony Noriega MD; Galindo Chris MD Technologist:Fede Caballero, RT (R) CT CTDI: 10.33 DLP: 549.38 Trnscb Date/Time: 06/14/2020 (3306) [email or web address] Orig Print D/T: S: 06/14/2020 (3362) PAGE 2 Signed Report UA RFLX MICROSCOPIC [id number] 09:14:00 Test Item Value Reference Range Interpretation [...] Dysuria/FrequencyURINE SOURCE: CLEAN CATCH URINEUA RFLX MICROSCOPIC [id number] 09:12:00 Test Item Value Reference Range Interpretation [...] Dysuria/FrequencyURINE SOURCE: CLEAN CATCH URINE BASIC METABOLIC [id number] 08:48:00 Test Item Value Reference Range Interpretation [...] = 10.1 mg/dL 8.5-10.1 N CA) LIVER [id number] 08:48:00 Test Item Value Reference Range Interpretation [...] 84 U/L 45-117 N code = ALKP) [id number] 08:48:00 Test Item Value Reference Range Interpretation Comments LIPASE (test code = LIP) 78 U/L 73-393 N [id number] 08:48:00 Test Item Value Reference Range Interpretation Comments TROPONIN-I (test <0.017 ng/ml 0.00-0.045 N GUIDELINES: 0.08 - 0.09 code = TROPI) Indeterminate0 .10 Risk Stratifica tion Limit: Suggest sequential te sting0.60 - 1.50 AMI cut off: Myocardial Inju ry by WHO criteria BASIC METABOLIC [id number] 08:46:00 Test Item Value Reference Range Interpretation [...] = 10.1 mg/dL 8.5-10.1 N CA) LIVER [id number] 08:46:00 Test Item Value Reference Range Interpretation [...] 84 U/L 45-117 N code = ALKP) [id number] 08:46:00 Test Item Value Reference Range Interpretation Comments LIPASE (test code = LIP) U/L 73-393 [id number] 08:46:00 Test Item Value Reference Range Interpretation Comments TROPONIN-I (test code = TROPI) ng/ml 0.00-0.045 PROTHROMBIN [id number] 08:45:00 Test Item Value Reference Interpretation Comments Range PROTHROMBIN TIME 9.6 SECONDS 8.7-11.9 N THERAPEUTIC LEVEL: 1.5 TO PATIENT (test code 1.9 TIMES NORMAL RANGE = PTP) INTERNATIONAL 0.9 Recommended Th erapeutic NORMAL RATIO (test PT Ratios For Oral code = INR) AnticoagulantTh erapy. CONDITION INT'L N ORMALIZED PT RATIO------- --- Prophylaxis of venous thrombosis 2.0 - 3.0in [facility] medical or surgicalpati ents, treatment of venousthrombosi s, prevention of e mbolism. Prevention of r ecurrent embolism, 2.5 - 3.5or treatment of patients with mechanicalprost hetic heart valves. THROMBOPLASTIN TIME [id number] 08:45:00 Test Item Value Reference Range Interpretation Comments THROMBOPLASTIN TIME PARTIAL 25.4 seconds 22.8-34.4 N (test code = PTT) CBC W/AUTO [id number] 08:30:00 Test Item Value Reference Range Interpretation [...] (test NO NORMAL code = RBCM) LACTIC [id number] 08:29:00 Test Item Value Reference Range Interpretation Comments LACTIC ACID (test 2.5 mmol/l 0.4-2.0 H RESULTS C ALLED TO code = LACT) TONY Slade MD AT 0829 06/14/20. Berny Landaverde [id number] 07:55:00 Test Item Value Reference Range Interpretation Comments GLUBED (test code = GLUBED) 367 mg/dL 70-105 H URINALYSIS W REFLEX [id number] 11:06:00 Test Item Value Reference Range Interpretation [...] SPERMU) FEW /hpf NEGATIVE A BASIC METABOLIC [id number] 11:02:00 Test Item Value Reference Range Interpretation [...] REPORT ED RESULT BY1. CREATININE (test code 1.30 mg/dL 0.67-1.17 H = CREAT) CALCIUM (test code = 10.7 mg/dL 8.5-10.1 H CA) LIVER [id number] 11:02:00 Test Item Value Reference Range Interpretation [...] 82 U/L 50-136 N code = ALKP) [id number] 11:02:00 Test Item Value Reference Range Interpretation Comments LIPASE (test code = LIP) 56 U/L 73-393 L [id number] 11:02:00 Test Item Value Reference Range Interpretation Comments TROPONIN-I (test <0.015 ng/ml 0.00-0.045 N GUIDELINES: 0.08 - 0.09 code = TROPI) Indeterminate0 .10 Risk Stratifica tion Limit: Suggest sequential te sting0.60 - 1.50 AMI cut off: Myocardial Inju ry by WHO criteria BASIC METABOLIC [id number] 11:01:00 Test Item Value Reference Range Interpretation [...] = 10.7 mg/dL 8.5-10.1 H CA) LIVER [id number] 11:01:00 Test Item Value Reference Range Interpretation [...] TOTAL (test U/L 50-136 code = ALKP) [id number] 11:01:00 Test Item Value Reference Range Interpretation Comments LIPASE (test code = LIP) 56 U/L 73-393 L [id number] 11:01:00 Test Item Value Reference Range Interpretation Comments TROPONIN-I (test code = TROPI) ng/ml 0.00-0.045 BASIC METABOLIC [id number] 11:00:00 Test Item Value Reference Range Interpretation [...] IS -EVA N, MULTIPLY REPORT ED RESULT BY1.. CREATININE (test code 1.30 mg/dL 0.67-1.17 H = CREAT) CALCIUM (test code = 10.7 mg/dL 8.5-10.1 H CA) LIVER [id number] 11:00:00 Test Item Value Reference Range Interpretation [...] TOTAL (test U/L 50-136 code = ALKP) [id number] 11:00:00 Test Item Value Reference Range Interpretation Comments LIPASE (test code = LIP) 56 U/L 73-393 L [id number] 11:00:00 Test Item Value Reference Range Interpretation Comments TROPONIN-I (test code = TROPI) ng/ml 0.00-0.045 BASIC METABOLIC [id number] 10:59:00 Test Item Value Reference Range Interpretation [...] = 10.7 mg/dL 8.5-10.1 H CA) LIVER [id number] 10:59:00 Test Item Value Reference Range Interpretation [...] TOTAL (test U/L 50-136 code = ALKP) [id number] 10:59:00 Test Item Value Reference Range Interpretation Comments LIPASE (test code = LIP) 56 U/L 73-393 L [id number] 10:59:00 Test Item Value Reference Range Interpretation Comments TROPONIN-I (test code = TROPI) ng/ml 0.00-0.045 BASIC METABOLIC [id number] 10:58:00 Test Item Value Reference Range Interpretation [...] = CA) 10.7 mg/dL 8.5-10.1 H LIVER [id number] 10:58:00 Test Item Value Reference Range Interpretation [...] TOTAL (test U/L 50-136 code = ALKP) [id number] 10:58:00 Test Item Value Reference Range Interpretation Comments LIPASE (test code = LIP) 56 U/L 73-393 L [id number] 10:58:00 Test Item Value Reference Range Interpretation Comments TROPONIN-I (test code = TROPI) ng/ml 0.00-0.045 BASIC METABOLIC [id number] 10:57:00 Test Item Value Reference Range Interpretation [...] = CA) 10.7 mg/dL 8.5-10.1 H LIVER [id number] 10:57:00 Test Item Value Reference Range Interpretation [...] TOTAL (test U/L 50-136 code = ALKP) [id number] 10:57:00 Test Item Value Reference Range Interpretation Comments LIPASE (test code = LIP) 56 U/L 73-393 L [id number] 10:57:00 Test Item Value Reference Range Interpretation Comments TROPONIN-I (test code = TROPI) ng/ml 0.00-0.045 BASIC METABOLIC [id number] 10:53:00 Test Item Value Reference Range Interpretation [...] (test code = CA) mg/dL 8.5-10.1 LIVER [id number] 10:53:00 Test Item Value Reference Range Interpretation Comments TOTAL PROTEIN (test code = PROT) g/dl 6.4-8.2 ALBUMIN (test code = ALB) g/dl 3.4-5.0 BILIRUBIN TOTAL (test code = BILT) mg/dl 0.2-1.0 BILIRUBIN DIRECT (test code = BILD) mg/dl 0.0-0.4 SGOT/AST (test code = AST) U/L 15-37 SGPT/ALT (test code = ALT) U/L 12-78 ALKALINE PHOSPHATASE TOTAL (test code U/L 50-136 = ALKP) [id number] 10:53:00 Test Item Value Reference Range Interpretation Comments LIPASE (test code = LIP) U/L 73-393 [id number] 10:53:00 Test Item Value Reference Range Interpretation Comments TROPONIN-I (test code = TROPI) ng/ml 0.00-0.045 CBC W/AUTO [id number] 10:43:00 Test Item Value Reference Range Interpretation [...] code = 0.00 K/mm3 0.0-0.1 N NRBC#) [id number] 10:39:00 Test Item Value Reference Range Interpretation Comments GLUBED (test code = 228 mg/dL 70-105 H Performe d by certified GLUBED) inserter operator at [facility] BASIC METABOLIC [id number] 02:26:00 Test Item Value Reference Range Interpretation [...] = 10.3 mg/dL 8.5-10.1 H CA) LIVER [id number] 02:26:00 Test Item Value Reference Range Interpretation [...] 79 U/L 45-117 N code = ALKP) [id number] 02:26:00 Test Item Value Reference Range Interpretation Comments LIPASE (test code = LIP) 138 U/L 73-393 N PROTHROMBIN [id number] 02:16:00 Test Item Value Reference Interpretation Comments Range PROTHROMBIN TIME 9.2 SECONDS 8.7-11.9 N THERAPEUTIC LEVEL: 1.5 TO PATIENT (test code 1.9 TIMES NORMAL RANGE = PTP) INTERNATIONAL 0.9 Recommended Th erapeutic NORMAL RATIO (test PT Ratios For Oral code = INR) AnticoagulantTh erapy. CONDITION INT'L N ORMALIZED PT RATIO------- --- Prophylaxis of venous thrombosis 2.0 - 3.0in high ri medical or surgicalpati ents, treatment of venousthrombosi s, prevention of e mbolism. Prevention of r ecurrent embolism, 2.5 - 3.5or treatment of patients with mechanicalprost hetic heart valves. THROMBOPLASTIN TIME [id number] 02:16:00 Test Item Value Reference Range Interpretation Comments THROMBOPLASTIN TIME PARTIAL 24.8 seconds 22.8-34.4 N (test code = PTT) CBC W/AUTO [id number] 02:03:00 Test Item Value Reference Range Interpretation [...] (test NO NORMAL code = RBCM) LACTIC [id number] 02:02:00 Test Item Value Reference Range Interpretation Comments LACTIC ACID (test code = LACT) 2.0 mmol/l 0.4-2.0 N [id number] 20:16:00 Test Item Value Reference Range Interpretation Comments GLUBED (test code = 189 mg/dL 70-105 H Performe d by certified GLUBED) inserter operator at [facility]2020-07-31 16:43:00 Test Item Value Reference Range Interpretation Comments GLUBED (test code = 197 mg/dL 70-105 H Performe d by certified GLUBED) inserter operator at [facility]2020-07-31 11:20:00 Test Item Value Reference Range Interpretation Comments GLUBED (test code = 289 mg/dL 70-105 H Performe d by certified GLUBED) inserter operator at [facility] [id number] 07:36:00 Test Item Value Reference Range Interpretation Comments GLUBED (test code = 154 mg/dL 70-105 H Performe d by certified GLUBED) inserter operator at [facility] [id number] 20:42:00 Test Item Value Reference Range Interpretation Comments GLUBED (test code = 155 mg/dL 70-105 H Performe d by certified GLUBED) inserter operator at [facility] [id number] 15:46:00 Test Item Value Reference Range Interpretation Comments GLUBED (test code = 201 mg/dL 70-105 H Performe d by certified GLUBED) inserter operator at [facility] [id number] 11:32:00 Test Item Value Reference Range Interpretation Comments GLUBED (test code = 252 mg/dL 70-105 H Performe d by certified GLUBED) inserter operator at [facility] [id number] 08:37:00 Test Item Value Reference Range Interpretation Comments GLUBED (test code = 225 mg/dL 70-105 H Performe d by certified GLUBED) inserter operator at [facility] [id number] 04:12:00 Test Item Value Reference Range Interpretation Comments CREATININE (test code = CREAT) 1.00 mg/dL 0.67-1.17 N CBC W/AUTO [id number] 04:03:00 Test Item Value Reference Range Interpretation [...] code = 0.00 K/mm3 0.0-0.1 N NRBC#) [id number] 19:33:00 Test Item Value Reference Range Interpretation Comments GLUBED (test code = 236 mg/dL 70-105 H Performe d by certified GLUBED) inserter operator at [facility]2020-07-29 16:33:00 Test Item Value Reference Range Interpretation Comments GLUBED (test code = 225 mg/dL 70-105 H Performe d by certified GLUBED) inserter operator at [facility]2020-07-29 11:29:00 Test Item Value Reference Range Interpretation Comments GLUBED (test code = 298 mg/dL 70-105 H Performe d by certified GLUBED) inserter operator at [facility]2020-07-29 08:00:00 Test Item Value Reference Range Interpretation Comments GLUBED (test code = 279 mg/dL 70-105 H Performe d by certified GLUBED) inserter operator at [facility]2020-07-28 21:36:00 Test Item Value Reference Range Interpretation Comments GLUBED (test code = 243 mg/dL 70-105 H Performe d by certified GLUBED) inserter operator at [facility]2020-07-28 16:54:00 Test Item Value Reference Range Interpretation Comments GLUBED (test code = 227 mg/dL 70-105 H Performe d by certified GLUBED) inserter operator at [facility]2020-07-28 12:06:00 Test Item Value Reference Range Interpretation Comments GLUBED (test code = 292 mg/dL 70-105 H Performe d by certified GLUBED) inserter operator at [facility]2020-07-28 07:21:00 Test Item Value Reference Range Interpretation Comments GLUBED (test code = 341 mg/dL 70-105 H Performe d by certified GLUBED) inserter operator at [facility]2020-07-27 23:10:00 Test Item Value Reference Range Interpretation Comments GLUBED (test code = 318 mg/dL 70-105 H Performe d by certified GLUBED) inserter operator at [facility]2020-07-27 17:57:00 Test Item Value Reference Range Interpretation Comments GLUBED (test code = 317 mg/dL 70-105 H Performe d by certified GLUBED) inserter operator at [facility]2020-07-27 11:45:00 Test Item Value Reference Range Interpretation Comments GLUBED (test code = 318 mg/dL 70-105 H Performe d by certified GLUBED) inserter operator at [facility]2020-07-27 07:22:00 Test Item Value Reference Range Interpretation Comments GLUBED (test code = 305 mg/dL 70-105 H Performe d by certified GLUBED) inserter operator at [facility]2020-07-26 20:16:00 Test Item Value Reference Range Interpretation Comments GLUBED (test code = 202 mg/dL 70-105 H Performe d by certified GLUBED) inserter operator at [facility]2020-07-26 16:57:00 Test Item Value Reference Range Interpretation Comments GLUBED (test code = 298 mg/dL 70-105 H Performe d by certified GLUBED) inserter operator at [facility]2020-07-26 10:12:00 Test Item Value Reference Range Interpretation Comments GLUBED (test code = 396 mg/dL 70-105 H Performe d by certified GLUBED) inserter operator at [facility]2020-07-25 20:52:00 Test Item Value Reference Range Interpretation Comments GLUBED (test code = 276 mg/dL 70-105 H Performe d by certified GLUBED) inserter operator at [facility]2020-07-25 16:20:00 Test Item Value Reference Range Interpretation Comments GLUBED (test code = 230 mg/dL 70-105 H Performe d by certified GLUBED) inserter operator at [facility]2020-07-25 11:50:00 Test Item Value Reference Range Interpretation Comments GLUBED (test code = 299 mg/dL 70-105 H Performe d by certified GLUBED) inserter operator at [facility]2020-07-25 07:26:00 Test Item Value Reference Range Interpretation Comments GLUBED (test code = 278 mg/dL 70-105 H Performe d by certified GLUBED) inserter operator at [facility]2020-07-24 20:44:00 Test Item Value Reference Range Interpretation Comments GLUBED (test code = 196 mg/dL 70-105 H Performe d by certified GLUBED) inserter operator at [facility]2020-07-24 16:17:00 Test Item Value Reference Range Interpretation Comments GLUBED (test code = 274 mg/dL 70-105 H Performe d by certified GLUBED) inserter operator at [facility]2020-07-24 11:38:00 Test Item Value Reference Range Interpretation Comments GLUBED (test code = 280 mg/dL 70-105 H Performe d by certified GLUBED) inserter operator at [facility]2020-07-24 07:37:00 Test Item Value Reference Range Interpretation Comments GLUBED (test code = 235 mg/dL 70-105 H Performe d by certified GLUBED) inserter operator at [facility]2020-07-23 22:34:00 Test Item Value Reference Range Interpretation Comments GLUBED (test code = 217 mg/dL 70-105 H Performe d by certified GLUBED) inserter operator at [facility] [id number] 18:05:00 Test Item Value Reference Range Interpretation Comments GLUBED (test code = 264 mg/dL 70-105 H Performe d by certified GLUBED) inserter operator at [facility] [id number] 11:09:00 Test Item Value Reference Range Interpretation Comments GLUBED (test code = 273 mg/dL 70-105 H Performe d by certified GLUBED) inserter operator at [facility] COMPREHENSIVE METABOLIC [id number] 08:14:00 Test Item Value Reference Range Interpretation [...] TOTAL (test code = ALKP) COMPREHENSIVE METABOLIC [id number] 08:13:00 Test Item Value Reference Range Interpretation [...] REPORT ED RESULT BY06.07. CREATININE (test code = 0.80 mg/dL 0.67-1.17 [...] TOTAL (test code = ALKP) COMPREHENSIVE METABOLIC [id number] 08:12:00 Test Item Value Reference Range Interpretation [...] TOTAL (test code = ALKP) COMPREHENSIVE METABOLIC [id number] 08:11:00 Test Item Value Reference Range Interpretation [...] TOTAL (test code = ALKP) COMPREHENSIVE METABOLIC [id number] 08:09:00 Test Item Value Reference Range Interpretation [...] U/L 50-136 code = ALKP) COMPREHENSIVE METABOLIC [id number] 08:08:00 Test Item Value Reference Range Interpretation [...] U/L 50-136 code = ALKP) COMPREHENSIVE METABOLIC [id number] 08:03:00 Test Item Value Reference Range Interpretation [...] U/L 50-136 code = ALKP) CBC W/AUTO [id number] 07:55:00 Test Item Value Reference Range Interpretation [...] code = 0.00 K/mm3 0.0-0.1 N NRBC#) [id number] 19:39:00 Test Item Value Reference Range Interpretation Comments GLUBED (test code = 239 mg/dL 70-105 H Performe d by certified GLUBED) inserter operator at [facility] CARDIO C REACTIVE PROTEIN [id number] 16:49:00 Test Item Value Reference Range Interpretation Comments CARDIO C REACTIVE 54.80 0.0-3.0 H CCRP MG/L RISK PROTEIN HS (test code ACCORD ING TO AHA/CDC = CCRP) GUIDELINES----- ---- ---------<1.0 LOW CARDIOVASCU LAR RISK1.0 - 3.0 [address] RAGE CARDIOVASCULAR RISK3.1 - 10.0 HIGH CARDIOVASCULAR RISK>10.0 PERSISTE NT ELEVATIONS MAY REPRESENT NON-CARDIOVASCU LAR INFLAMMATION SED [id number] 16:47:00 Test Item Value Reference Range Interpretation Comments SED RATE (test code = SEDW) 134 mm/hr 0-15 H [id number] 16:11:00 Test Item Value Reference Range Interpretation Comments GLUBED (test code = 162 mg/dL 70-105 H Performe d by certified GLUBED) inserter operator at [facility]2020-07-22 11:20:00 Test Item Value Reference Range Interpretation Comments GLUBED (test code = 276 mg/dL 70-105 H Performe d by certified GLUBED) inserter operator at [facility]2020-07-22 07:12:00 Test Item Value Reference Range Interpretation Comments GLUBED (test code = 238 mg/dL 70-105 H Performe d by certified GLUBED) inserter operator at [facility] [id number] 21:21:00 Test Item Value Reference Range Interpretation Comments GLUBED (test code = 212 mg/dL 70-105 H Performe d by certified GLUBED) inserter operator at [facility]2020-07-21 16:44:00 Test Item Value Reference Range Interpretation Comments GLUBED (test code = 236 mg/dL 70-105 H Performe d by certified GLUBED) inserter operator at [facility] [id number] 12:01:00 RUN DATE: 12/06/19 [facility] LIVE PAGE 1 RUN TIME: 1201 Specimen Inquiry RUN USER: INTERFACE PATIENT: RAD[facility]ENTER [facility] [facility] [id number] AGE/SX: 39/M ROOM: [facility] RE12/01/19REG DR: Joe Wolf MD : 82 BED: A DIS: STATUS: ADM IN TLOC: SPEC #: [id number] RECD: 12/05/19 STATUS: DINORA DREW #: [id number] JOEL: 12/05/19- [facility] DR: Simone Navarro ENTERED: 12/05/19 SP [...] one cassette. COPIES TO: Rosalina Morales DPM [address] [place] [address] Simone Cabrera [address] [place], [place] [address] Ld Rutherford MD [address] [facility], [place] [address] Galindo Chris MD [address] [place] [address] PROCEDURES: SURG/PATH GROSS (12/05/19-1335) TISSUES: FOOT - RIGHT FOOT TISSUE CONTINUED ON NEXT PAGE RUN DATE: 12/06/19 [facility] LIVE PAGE 2 RUN TIME: 1201 Specimen Inquiry RUN USER: INTERFACE ------- -----SPEC #: [id number] PATIENT: RADHA CARPENTER #[id number] (Continued) Surgery information Surgery date 12/05/19 Surgeon(s): SIMONE BLANK Pre-Op Dx: RIGHT FOOT ULCER Post-Op Dx: SAME Signed SIGNATURE ON FILE Simone Suarez 12/06/19 1201 END OF REPORT [id number] 11:54:00 Test Item Value Reference Range Interpretation Comments GLUBED (test code = 300 mg/dL 70-105 H Performe d by certified GLUBED) inserter operator at [facility] BASIC METABOLIC [id number] 11:28:00 Test Item Value Reference Range Interpretation [...] 8.6 mg/dL 8.5-10.1 N CA) BASIC METABOLIC [id number] 11:25:00 Test Item Value Reference Range Interpretation [...] CA) 8.6 mg/dL 8.5-10.1 N BASIC METABOLIC [id number] 11:24:00 Test Item Value Reference Range Interpretation [...] CA) 8.6 mg/dL 8.5-10.1 N CBC W/AUTO [id number] 09:58:00 Test Item Value Reference Range Interpretation [...] code = INCREASED ADEQUATE PLTEST) BASIC METABOLIC [id number] 08:57:00 Test Item Value Reference Range Interpretation [...] code = CA) mg/dL 8.5-10.1 CBC W/AUTO [id number] 08:42:00 Test Item Value Reference Range Interpretation [...] code = 0.00 K/mm3 0.0-0.1 N NRBC#) [id number] 07:57:00 Test Item Value Reference Range Interpretation Comments GLUBED (test code = 330 mg/dL 70-105 H Performe d by certified GLUBED) inserter operator at [facility] [id number] 22:44:00 Test Item Value Reference Range Interpretation Comments GLUBED (test code = 284 mg/dL 70-105 H Performe d by certified GLUBED) inserter operator at [facility] [id number] 18:22:00 Test Item Value Reference Range Interpretation Comments GLUBED (test code = 269 mg/dL 70-105 H Performe d by certified GLUBED) inserter operator at [facility] [id number] 13:13:00 Test Item Value Reference Range Interpretation Comments GLUBED (test code = 202 mg/dL 70-105 H Performe d by certified GLUBED) inserter operator at [facility] BASIC METABOLIC [id number] 09:04:00 Test Item Value Reference Range Interpretation [...] 9.2 mg/dL 8.5-10.1 N CA) BASIC METABOLIC [id number] 09:03:00 Test Item Value Reference Range Interpretation [...] CA) 9.2 mg/dL 8.5-10.1 N BASIC METABOLIC [id number] 09:01:00 Test Item Value Reference Range Interpretation [...] = CA) 9.2 mg/dL 8.5-10.1 N PROTHROMBIN [id number] 09:01:00 Test Item Value Reference Interpretation Comments [...] heart valves. LAB ANTICOAGULANT QUERY UNKNOWNTHROMBOPLASTIN TIME [id number] 09:01:00 Test Item Value Reference Range Interpretation Comments THROMBOPLASTIN TIME PARTIAL 29.3 seconds 22.8-34.4 N (test code = PTT) LAB ANTICOAGULANT QUERY UNKNOWNBASIC METABOLIC [id number] 08:46:00 Test Item Value Reference Range Interpretation [...] code = CA) mg/dL 8.5-10.1 CBC W/AUTO [id number] 08:33:00 Test Item Value Reference Range Interpretation [...] code = 0.00 K/mm3 0.0-0.1 N NRBC#) [id number] 08:03:00 Test Item Value Reference Range Interpretation Comments GLUBED (test code = 240 mg/dL 70-105 H Performe d by certified GLUBED) inserter operator at [facility] [id number] 21:40:00 Test Item Value Reference Range Interpretation Comments GLUBED (test code = 208 mg/dL 70-105 H Performe d by certified GLUBED) inserter operator at [facility] [id number] 17:39:00 Test Item Value Reference Range Interpretation Comments GLUBED (test code = 250 mg/dL 70-105 H Performe d by certified GLUBED) inserter operator at [facility] COVID 19 Asymptomatic IH [id number] 17:18:00 Test Item Value Reference Interpretation Comments Range COVID 19 Presumed NEGATIVE Asymptomatic IH AG Negative SEBASTIEN COV ID-19 (test code = COVNONPUIAG) Results are for the identification of RJRF-XoZ-2yjsvc ocapsid protein antigen . Antigen is generallydet [...] nd Drug Administration' s Emergency Use Authorization. [id number] 12:09:00 Test Item Value Reference Range Interpretation Comments GLUBED (test code = 191 mg/dL 70-105 H Performe d by certified GLUBED) inserter operator at [facility] [id number] 09:54:00 Test Item Value Reference Range Interpretation Comments GLYCOSYLATED 11.3 % <5.7 H SAMPSON GGESTED HEMOGLOBIN (HA1C) DIAGNOSIS (test code = GLYHGB) INTERPR ETATION -------- Normal: < 5.7% Prediabetes: 5 .7 - 6.4% Diabetic: >/ = 6.5%* DUE TO METHOD R EVISION, REFERENCE RANGE HAS BEEN UPDATED * ESTIMATED AVERAGE 278 MG/DL <126 GLUCOSE (test code = EAG) BASIC METABOLIC [id number] 09:16:00 Test Item Value Reference Range Interpretation [...] 9.5 mg/dL 8.5-10.1 N CA) CBC W/AUTO [id number] 08:55:00 Test Item Value Reference Range Interpretation [...] code = 0.00 K/mm3 0.0-0.1 N NRBC#) [id number] 08:21:00 Test Item Value Reference Range Interpretation Comments GLUBED (test code = 228 mg/dL 70-105 H Performe d by certified GLUBED) [facility] 21:14:00 Test Item Value Reference Range Interpretation Comments GLUBED (test code = 178 mg/dL 70-105 H Performe d by certified GLUBED) inserter operator at [facility] [id number] 17:11:00 Test Item Value Reference Range Interpretation Comments GLUBED (test code = 149 mg/dL 70-105 H Performe d by certified GLUBED) inserter operator at [facility] - NM BONE 3 [id number] 15:01:00 FAX: Galindo Abdullahi MD [phone] [place]: [facility] [address]: ADM Name: RADHA CARPENTER [facility] : 1980 Age/S: 39/M [address] [facility] Unit#: [id number] Loc: [place] [address] Phys: Joe Wolf MD Acct: [id number] Dis Date: Status: ADM IN PHONE #: [phone] Exam Date: 12/02/2019 4975 FAX #: [phone] Reason: DIABETIC FOOT/UNABLE TO HAVE MRI EXAMS: CPT CODE: [id number] [place] BONE 3 PHASE 99863 RADIOPHARMACEUTICAL: 20 mCi Tc-99m -MDP IV Correlated [...] M.D. CC: Galindo Chris MD Technologist: Wilmer Arboleda,AIDANT,SURVEY RESEARCHER,RTR Trnscrd Date/Time/By: 12/03/2019 (7501) : By: [email or web address] Orig Print D/T: S: 12/03/2019 (6705) PAGE 1 Signed [id number] 12:21:00 Test Item Value Reference Range Interpretation Comments GLUBED (test code = 149 mg/dL 70-105 H Performe d by certified GLUBED) inserter operator at [facility]2020-07-18 08:44:00 Test Item Value Reference Range Interpretation Comments GLUBED (test code = 191 mg/dL 70-105 H Performe d by certified GLUBED) inserter operator at [facility]2020-07-17 21:21:00 Test Item Value Reference Range Interpretation Comments GLUBED (test code = 156 mg/dL 70-105 H Performe d by certified GLUBED) inserter operator at [facility] [id number] 16:57:00 Test Item Value Reference Range Interpretation Comments GLUBED (test code = 143 mg/dL 70-105 H Performe d by certified GLUBED) [facility] 11:37:00 Test Item Value Reference Range Interpretation Comments GLUBED (test code = 152 mg/dL 70-105 H Performe d by certified GLUBED) inserter operator at [facility] BASIC METABOLIC [id number] 08:08:00 Test Item Value Reference Range Interpretation [...] 8.5 mg/dL 8.5-10.1 N CA) BASIC METABOLIC [id number] 08:04:00 Test Item Value Reference Range Interpretation [...] CA) 8.5 mg/dL 8.5-10.1 N BASIC METABOLIC [id number] 08:03:00 Test Item Value Reference Range Interpretation [...] code = CA) mg/dL 8.5-10.1 CBC W/AUTO [id number] 07:56:00 Test Item Value Reference Range Interpretation [...] code = 0.00 K/mm3 0.0-0.1 N NRBC#) [id number] 07:15:00 Test Item Value Reference Range Interpretation Comments GLUBED (test code = 125 mg/dL 70-105 H Performe d by certified GLUBED) inserter operator at [facility] [id number] 21:13:00 Test Item Value Reference Range Interpretation Comments GLUBED (test code = 178 mg/dL 70-105 H Performe d by certified GLUBED) inserter operator at [facility] [id number] 17:49:00 Test Item Value Reference Range Interpretation Comments GLYCOSYLATED 11.5 % <5.7 H SAMPSON GGESTED HEMOGLOBIN (HA1C) DIAGNOSIS (test code = GLYHGB) INTERPR ETATION -------- Normal: < 5.7% Prediabetes: 5 .7 - 6.4% Diabetic: >/ = 6.5%* DUE TO METHOD R EVISION, REFERENCE RANGE HAS BEEN UPDATED * ESTIMATED AVERAGE 283 MG/DL <126 GLUCOSE (test code = EAG) [id number] 16:39:00 Test Item Value Reference Range Interpretation Comments GLUBED (test code = 91 mg/dL 70-105 N Performe d by certified GLUBED) inserter operator at [facility] BASIC METABOLIC [id number] 05:21:00 Test Item Value Reference Range Interpretation [...] = 10.2 mg/dL 8.5-10.1 H CA) LIVER [id number] 05:21:00 Test Item Value Reference Range Interpretation [...] 87 U/L 45-117 N code = ALKP) [id number] 05:21:00 Test Item Value Reference Range Interpretation [...] d/or septic shock. CARDIO C REACTIVE PROTEIN [id number] 05:21:00 Test Item Value Reference Range Interpretation Comments CARDIO C REACTIVE 88.80 0.0-3.0 H CCRP MG/L RISK PROTEIN HS (test code ACCORD ING TO AHA/CDC = CCRP) GUIDELINES----- ---- ---------<1.0 LOW CARDIOVASCU LAR RISK1.0 - 3.[address] RAGE CARDIOVASCULAR RISK3.1 - 10.0 HIGH CARDIOVASCULAR RISK>10.0 PERSISTE NT ELEVATIONS MAY REPRESENT NON-CARDIOVASCU LAR INFLAMMATION CBC W/AUTO [id number] 03:55:00 Test Item Value Reference Range Interpretation [...] (test NO NORMAL code = RBCM) SED [id number] 03:55:00 Test Item Value Reference Range Interpretation Comments SED RATE (test code = SEDW) 26 mm/hr 0-15 H BASIC METABOLIC [id number] 03:39:00 Test Item Value Reference Range Interpretation [...] = 10.2 mg/dL 8.5-10.1 H CA) LIVER [id number] 03:39:00 Test Item Value Reference Range Interpretation [...] 87 U/L 45-117 N code = ALKP) [id number] 03:39:00 Test Item Value Reference Range Interpretation Comments LIPASE (test code = LIP) 74 U/L 73-393 N CARDIO C REACTIVE PROTEIN [id number] 03:39:00 Test Item Value Reference Range Interpretation Comments CARDIO C REACTIVE 88.80 0.0-3.0 H CCRP MG/L RISK PROTEIN HS (test code ACCORD ING TO AHA/CDC = CCRP) GUIDELINES----- ---- ---------<1.0 LOW CARDIOVASCU LAR RISK1.0 - 3.[address] RAGE CARDIOVASCULAR RISK3.1 - 10.0 HIGH CARDIOVASCULAR RISK>10.0 PERSISTE NT ELEVATIONS MAY REPRESENT NON-CARDIOVASCU LAR INFLAMMATION - XR FOOT 3+ V [id number] 03:11:00 FAX: Ld Rutherford [place]: [facility]: PRE FAX: Galindo Abdullahi MD [phone] Name: RADHA CARPENTER [place] [facility] : 1980 Age/S: 39/M [address] Unit #: [id number] Loc: [place] [address] Phys: Ld Rutherford MD Acct: [id number] Dis Date: Status: PRE ER PHONE #: Exam Date: 12/01/2019 7417 FAX #: Reason: diabetic foot wound, pain EXAMS: CPT CODE: [id number] XR FOOT 3+ [place] RT [id number] EXAM: - XR FOOT 3+ V RT [...] (R) Trnscrd Date/Time/By: 12/01/2019 (310) : By: [email or web address] Orig Print D/T: S: 12/01/2019 (4) PAGE 1 Signed ReportBASIC METABOLIC [id number] 02:59:00 Test Item Value Reference Range Interpretation [...] = 10.2 mg/dL 8.5-10.1 H CA) LIVER [id number] 02:59:00 Test Item Value Reference Range Interpretation [...] 87 U/L 45-117 N code = ALKP) [id number] 02:59:00 Test Item Value Reference Range Interpretation Comments LIPASE (test code = LIP) 74 U/L 73-393 N CARDIO C REACTIVE PROTEIN [id number] 02:59:00 Test Item Value Reference Range Interpretation Comments CARDIO C REACTIVE PROTEIN HS (test code 0.0-3.0 = CCRP) CBC W/AUTO [id number] 02:46:00 Test Item Value Reference Range Interpretation [...] (test NO NORMAL code = RBCM) SED [id number] 02:46:00 Test Item Value Reference Range Interpretation Comments SED RATE (test code = SEDW) mm/hr 0-15 [id number] 11:14:00 Test Item Value Reference Range Interpretation Comments GLUBED (test code = 223 mg/dL 70-105 H Performe d by certified GLUBED) inserter operator at [facility] [id number] 06:41:00 Test Item Value Reference Range Interpretation Comments GLUBED (test code = 281 mg/dL 70-105 H Performe d by certified GLUBED) inserter operator at [facility] COMPREHENSIVE METABOLIC [id number] 04:09:00 Test Item Value Reference Range Interpretation [...] TOTAL (test code = ALKP) CBC W/AUTO [id number] 03:32:00 Test Item Value Reference Range Interpretation [...] code = 0.00 K/mm3 0.0-0.1 N NRBC#) [id number] 20:11:00 Test Item Value Reference Range Interpretation Comments GLUBED (test code = 123 mg/dL 70-105 H Performe d by certified GLUBED) inserter operator at [facility]2020-05-31 15:45:00 Test Item Value Reference Range Interpretation Comments GLUBED (test code = 156 mg/dL 70-105 H Performe d by certified GLUBED) inserter operator at [facility]2020-05-31 11:33:00 Test Item Value Reference Range Interpretation Comments GLUBED (test code = 203 mg/dL 70-105 H Performe d by certified GLUBED) inserter operator at [facility]2020-05-31 07:00:00 Test Item Value Reference Range Interpretation Comments GLUBED (test code = 219 mg/dL 70-105 H Performe d by certified GLUBED) inserter operator at [facility]2020-05-30 22:19:00 Test Item Value Reference Range Interpretation Comments GLUBED (test code = 168 mg/dL 70-105 H Performe d by certified GLUBED) inserter operator at [facility] [id number] 17:28:00 Test Item Value Reference Range Interpretation Comments GLUBED (test code = 115 mg/dL 70-105 H Performe d by certified GLUBED) inserter operator at [facility] COMPREHENSIVE METABOLIC [id number] 12:30:00 Test Item Value Reference Range Interpretation [...] TOTAL (test code = ALKP) CBC W/AUTO [id number] 12:22:00 Test Item Value Reference Range Interpretation [...] code = 0.00 K/mm3 0.0-0.1 N NRBC#) [id number] 11:24:00 Test Item Value Reference Range Interpretation Comments GLUBED (test code = 233 mg/dL 70-105 H Performe d by certified GLUBED) inserter operator at [facility] [id number] 07:03:00 Test Item Value Reference Range Interpretation Comments GLUBED (test code = 221 mg/dL 70-105 H Performe d by certified GLUBED) inserter operator at [facility]2020-05-29 20:59:00 Test Item Value Reference Range Interpretation Comments GLUBED (test code = 176 mg/dL 70-105 H Performe d by certified GLUBED) inserter operator at [facility]2020-05-29 16:00:00 Test Item Value Reference Range Interpretation Comments GLUBED (test code = 204 mg/dL 70-105 H Performe d by certified GLUBED) inserter operator at [facility] BASIC METABOLIC [id number] 13:27:00 Test Item Value Reference Range Interpretation [...] 9.0 mg/dL 8.5-10.1 N CA) BASIC METABOLIC [id number] 13:26:00 Test Item Value Reference Range Interpretation [...] code = CA) 9.0 mg/dL 8.5-10.1 N [id number] 13:04:00 Test Item Value Reference Range Interpretation Comments GLUBED (test code = 241 mg/dL 70-105 H Performe d by certified GLUBED) inserter operator at [facility] [id number] 06:22:00 Test Item Value Reference Range Interpretation Comments GLUBED (test code = 218 mg/dL 70-105 H Performe d by certified GLUBED) inserter operator at [facility]2020-05-28 20:52:00 Test Item Value Reference Range Interpretation Comments GLUBED (test code = 189 mg/dL 70-105 H Performe d by certified GLUBED) inserter operator at [facility]2020-05-28 16:02:00 Test Item Value Reference Range Interpretation Comments GLUBED (test code = 253 mg/dL 70-105 H Performe d by certified GLUBED) inserter operator at [facility] [id number] 13:35:00 Test Item Value Reference Range Interpretation Comments GLYCOSYLATED 13.3 % <5.7 H SAMPSON GGESTED HEMOGLOBIN (HA1C) DIAGNOSIS (test code = GLYHGB) INTERPR ETATION -------- Normal: < 5.7% Prediabetes: 5 .7 - 6.4% Diabetic: >/ = 6.5%* DUE TO METHOD R EVISION, REFERENCE RANGE HAS BEEN UPDATED * ESTIMATED AVERAGE 335 MG/DL <126 GLUCOSE (test code = EAG) [id number] 13:13:00 Test Item Value Reference Range Interpretation Comments GLUBED (test code = 245 mg/dL 70-105 H Performe d by certified GLUBED) inserter operator at [facility]2020-05-28 08:01:00 Test Item Value Reference Range Interpretation Comments GLUBED (test code = 352 mg/dL 70-105 H Performe d by certified GLUBED) inserter operator at [facility] UA RFLX MICROSCOPIC [id number] 07:45:00 Test Item Value Reference Range Interpretation Comments UA COLOR (test code = LT YELLOW YELLOW COLU) UA APPEARANCE (test CLEAR CLEAR code = APPU) UA GLUCOSE DIPSTICK >1000 mg/dl NORMAL URGENT V ALUE---- (test code = DGLUU) RESULT C ALLEDTO AND READ BACK B Y KRISTIN ARREGUINVADIM ON4680 0. Tan,Ebony A UA BILIRUBIN DIPSTICK NEGATIVE mg/dl NEGATIVE [...] Dysuria/FrequencyURINE SOURCE: CLEAN CATCH URINE BASIC METABOLIC [id number] 06:25:00 Test Item Value Reference Range Interpretation [...] = 10.1 mg/dL 8.5-10.1 N CA) LIVER [id number] 06:25:00 Test Item Value Reference Range Interpretation [...] 69 U/L 50-136 N code = ALKP) [id number] 06:25:00 Test Item Value Reference Range Interpretation Comments LIPASE (test code = LIP) 68 U/L 73-393 L [id number] 06:25:00 Test Item Value Reference Range Interpretation Comments TROPONIN-I (test <0.015 ng/ml 0.00-0.045 N GUIDELINES: 0.08 - 0.09 code = TROPI) Indeterminate0 .10 Risk Stratifica tion Limit: Suggest sequential te sting0.60 - 1.50 AMI cut off: Myocardial Inju ry by WHO criteria CBC W/AUTO [id number] 06:04:00 Test Item Value Reference Range Interpretation [...] 0.00 K/mm3 0.0-0.1 N NRBC#) UR PORPHYRINS [id number] 10:50:00 Test Item Value Reference Range Interpretation Comments UR PORPHYRINS QUANT (test SENT TO REF LAB code = PORUQT) LA=9081 MLS/[id number] 08:47:00 Test Item Value Reference Range Interpretation Comments GLUBED (test code = 220 mg/dL 70-105 H Performe d by certified GLUBED) inserter operator at [facility] BASIC METABOLIC [id number] 07:05:00 Test Item Value Reference Range Interpretation [...] code = 8.0 mg/dL 8.5-10.1 L CA) [id number] 07:05:00 Test Item Value Reference Range Interpretation Comments PHOSPHOROUS (test code = PHOS) 1.8 mg/dL 2.5-4.9 L CBC W/AUTO [id number] 06:11:00 Test Item Value Reference Range Interpretation [...] code = 0.00 K/mm3 0.0-0.1 N NRBC#) [id number] 20:43:00 Test Item Value Reference Range Interpretation Comments GLUBED (test code = 117 mg/dL 70-105 H Performe d by certified GLUBED) inserter operator at [facility] [id number] 16:49:00 Test Item Value Reference Range Interpretation Comments GLUBED (test code = 163 mg/dL 70-105 H Performe d by certified GLUBED) inserter operator at [facility] [id number] 11:36:00 Test Item Value Reference Range Interpretation Comments GLUBED (test code = 171 mg/dL 70-105 H Performe d by certified GLUBED) inserter operator at [facility] [id number] 07:20:00 Test Item Value Reference Range Interpretation Comments GLUBED (test code = 198 mg/dL 70-105 H Performe d by certified GLUBED) inserter operator at [facility] BASIC METABOLIC [id number] 07:20:00 Test Item Value Reference Range Interpretation [...] code = 8.6 mg/dL 8.5-10.1 N CA) [id number] 07:20:00 Test Item Value Reference Range Interpretation Comments PHOSPHOROUS (test code = PHOS) 2.2 mg/dL 2.5-4.9 L CBC W/AUTO [id number] 06:35:00 Test Item Value Reference Range Interpretation [...] code = 0.00 K/mm3 0.0-0.1 N NRBC#) [id number] 21:16:00 Test Item Value Reference Range Interpretation Comments GLUBED (test code = 123 mg/dL 70-105 H Performe d by certified GLUBED) inserter operator at [facility] [id number] 18:31:00 Test Item Value Reference Range Interpretation Comments GLUBED (test code = 171 mg/dL 70-105 H Performe d by certified GLUBED) inserter operator at [facility] - CT ABD PELVIS [id number] 16:22:00 Name: RADHA CARPENTER [facility] : 1980 Age/S: 38 / M [address] [facility] Unit #: [id number] Loc: [place], [place] [address] Phys: Josh Norwood Acct: [id number] Dis Date: Status: ADM IN PHONE #: [phone] Exam Date: 06/15/2019 1553 FAX #: [phone] Reason: ABD PAIN EXAMS: CPTCODE: [id number] CT ABD PELVIS W/CONT 86345 EXAMINATION: - CT ABD PELVIS W/CONT. LOCATION: 42. HISTORY: Abdominal pain, gastroparesis, cholecystectomy, diabetes. [...] 1 Signed Report (CONTINUED) Name: RADHA CARPENTER [facility] : 1980 Age/S: 38 / M [address] [place] [address] Unit #: [id number] [facility] [place] [address] Phys: Josh Norwood Acct: [id number] Dis Date: Status: ADM IN PHONE #: [phone] Exam Date: 06/15/2019 1558 FAX #: [phone] Reason: ABD PAIN EXAMS: CPT CODE: [id number] CT ABD PELVIS W/CONT 87252 <Continued> at 1622 Reported and signed by: VERITO MG M.D. CC: Galindo Chris MD Technologist:Anmol Hardy, RT (R) CT (R) CTDI: 10.14 DLP: 586.96 Trnscb Date/Time: 06/15/2019 (1621) t.SDR.ANS4 Orig Print D/T: S: 06/15/2019 (4637) PAGE 2 Signed ReportUR CREATININE [id number] 14:23:00 Test Item Value Reference Range Interpretation Comments UR CREATININE RANDOM (test code = 37.0 mg/dL CREATU) [id number] 11:48:00 Test Item Value Reference Range Interpretation Comments GLUBED (test code = 171 mg/dL 70-105 H Performe d by certified GLUBED) inserter operator at [facility] [id number] 06:29:00 Test Item Value Reference Range Interpretation Comments GLUBED (test code = 191 mg/dL 70-105 H Performe d by certified GLUBED) inserter operator at [facility] - XR ABDOMEN 1V (KUB)2019-06-14 22:36:00 [facility] Name: RADHA CARPENTER [address] [place] [address] Phys: [place], [place] [address] : 1980 Age: 38 Sex: M Acct: [id number] Loc: H.515 A PHONE #: [phone] Exam Date: 06/14/2019 Status: ADM IN FAX #: [phone] Radiology No: Unit No: [id number] Reason: ABD PAIN EXAMS: CPT CODE: [id number] XR ABDOMEN 1V (KUB) 95026 Fluoro Time: DAP (Gy m2): Air Kerma [...] Denisha Gallegos RT (R) Transcribed Date/Time: 06/14/2019 (223) t.SDR.JSL Orig Print D/T: S: 06/14/2019 (1345) PAGE 1 Signed [id number] 20:44:00 Test Item Value Reference Range Interpretation Comments GLUBED (test code = 188 mg/dL 70-105 H Performe d by certified GLUBED) inserter operator at [facility]2020-01-28 16:32:00 Test Item Value Reference Range Interpretation Comments GLUBED (test code = 180 mg/dL 70-105 H Performe d by certified GLUBED) inserter operator at [facility]2020-01-28 11:37:00 Test Item Value Reference Range Interpretation Comments GLUBED (test code = 223 mg/dL 70-105 H Performe d by certified GLUBED) inserter operator at [facility]2020-01-27 21:58:00 Test Item Value Reference Range Interpretation Comments GLUBED (test code = 135 mg/dL 70-105 H Performe d by certified GLUBED) inserter operator at [facility]2020-01-27 19:17:00 Test Item Value Reference Range Interpretation Comments GLUBED (test code = 162 mg/dL 70-105 H Performe d by certified GLUBED) inserter operator at [facility]2020-01-27 19:17:00 Test Item Value Reference Range Interpretation Comments GLUBED (test code = 213 mg/dL 70-105 H Performe d by certified GLUBED) inserter operator at [facility] - XR CHEST 1 [id number] 18:19:00 [facility] Name: RADHA CARPENTER [address] [place] [address] Phys: Jin Fatima MD [place] [address] : 1980 Age: 38 Sex: M Acct: [id number] Loc: [facility] PHONE #: [phone] Exam Date: 06/13/2019 Status: REG ER FAX #: [phone] Radiology No: Unit No: [id number] Reason: pain EXAMS: CPT CODE: [id number] XR CHEST 1 V 84043 Fluoro Time: DAP (Gy m2): Air Kerma [...] Gallegos, RT (R) Transcribed Date/Time: 06/13/2019 (1818) t.SANDRAR.SR31 Orig Print D/T: S: 06/13/2019 (1821) PAGE [...] 50-136 N TOTAL (test code = ALKP) [id number] 18:01:00 Test Item Value Reference Range Interpretation Comments LIPASE (test code = LIP) 69 U/L 73-393 L CBC W/AUTO [id number] 17:46:00 Test Item Value Reference Range Interpretation [...] code = 0.00 K/mm3 0.0-0.1 N NRBC#) [id number] 16:38:00 Test Item Value Reference Range Interpretation Comments GLUBED (test code = 195 mg/dL 70-105 H Performe d by certified GLUBED) inserter operator at [facility] [id number] 11:47:00 Test Item Value Reference Range Interpretation Comments GLUBED (test code = 254 mg/dL 70-105 H Performe d by certified GLUBED) inserter operator at [facility] UA RFLX MICROSCOPIC [id number] 10:08:00 Test Item Value Reference Range Interpretation [...] code = GLUBED) 150 mg/dL 70-105 H [id number] 22:49:00 Test Item Value Reference Range Interpretation Comments GLUBED (test code = 214 mg/dL 70-105 H Performe d by certified GLUBED) inserter operator at [facility] UA RFLX MICROSCOPIC [id number] 18:28:00 Test Item Value Reference Range Interpretation [...] Dysuria/FrequencyURINE SOURCE: STRAIGHT CATHCOMMENT: PER DR. KELSEY [id number] 16:35:00 Test Item Value Reference Range Interpretation Comments GLUBED (test code = 143 mg/dL 70-105 H Performe d by certified GLUBED) inserter operator at [facility] [id number] 14:55:00 Test Item Value Reference Range Interpretation Comments GLUBED (test code = 204 mg/dL 70-105 H Performe d by certified GLUBED) inserter operator at [facility] [id number] 10:20:00 Test Item Value Reference Range Interpretation Comments GLUBED (test code = 159 mg/dL 70-105 H Performe d by certified GLUBED) inserter operator at [facility] [id number] 06:47:00 Test Item Value Reference Range Interpretation Comments GLYCOSYLATED HEMOGLOBIN (HA1C) 12.2 % 4.2-6.3 H (test code = GLYHGB) ESTIMATED AVERAGE GLUCOSE (test 303 MG/DL <126 code = EAG) COMPREHENSIVE METABOLIC [id number] 06:35:00 Test Item Value Reference Range Interpretation [...] ce average 6.14 Thr ee times average [id number] 06:35:00 Test Item Value Reference Range Interpretation Comments LIPASE (test code = LIP) 51 U/L 73-393 L CBC W/AUTO [id number] 06:10:00 Test Item Value Reference Range Interpretation [...] code = 0.00 K/mm3 0.0-0.1 N NRBC#) [id number] 00:01:00 Test Item Value Reference Range Interpretation Comments MERCEDEZ (test code = 191 mg/dL 70-105 H Performe d by certified GLUBED) inserter operator at [facility] - CT ABD PELVIS W/O [id number] 17:17:00 Name: RADHA CARPENTER [facility] : 1980 Age/S: 38 / M [address] Unit #: [id number] Loc: [place] [address] Phys: Edson Potts Jr, MD Acct: [id number] Dis Date: Status: ADM IN PHONE #: [phone] Exam Date: 06/01/2019 1646 FAX #: [phone] Reason: ABD APIN EXAMS: CPTCODE: [id number] CT ABD PELVIS W/O CONT 14315 - CT ABD PELVIS W/O CONT CLINICAL [...] 1 Signed Report (CONTINUED) Name: RADHA CARPENTER [facility] : 1980 Age/S: 38 / M [address] [facility] Unit #: [id number] Loc: [place] [address] Phys: Edson Potts Jr, MD Acct: [id number] Dis Date: Status: ADM IN PHONE #: [phone] Exam Date: 06/01/2019 1646 FAX #: [phone] Reason: ABD APIN EXAMS: CPT CODE: [id number] CT ABD PELVIS W/O CONT 94974 <Continued> No evidence of intestinal or urinary [...] (1717) MoonKAA2 Orig Print D/T: S: 06/01/2019 (1124) PAGE 2 Signed Report- XR CHEST 1 V 2019-06-01 14:37:00 [facility] Name: RADHA CARPENTER [address] [facility] Phys: Edson Potts Jr, MD [place], [place] [address] : 1980 Age: 38 Sex: M Acct: [id number] Loc: [place] PHONE #: Exam Date: 06/01/2019 Status: REG ER FAX #: [phone] Radiology No: Unit No: [id number] Reason: chest pain EXAMS: CPT CODE: [id number] XR CHEST 1 V 80159 Fluoro Time: DAP (Gy m2): Air Kerma (mGy): Location code: R 16 Chest 1 view Indication: chest pain. Comparison: None Findings: The heart and mediastinum are not remarkable. Costophrenic angles are clear. Lungs are clear. Bone is unremarkable for age. Impression: 1. No radiographic evidence of acute cardiopulmonary disease. at 1435 Reported and signed by: RAMAN BROWN M.D. CC: Galindo Chris MD Technologist: Anton Martinez, RT(R) Transcribed Date/Time: 06/01/2019 (8572) t.SANDRAR.DRB1 Orig Print D/T: S: 06/01/2019 (5979) PAGE 1 Signed ReportPROTHROMBIN TIME 2019-06-01 14:25:00 [...] with mechanicalprost hetic heart valves. THROMBOPLASTIN TIME [id number] 14:25:00 Test Item Value Reference Range Interpretation Comments THROMBOPLASTIN TIME PARTIAL 24.0 seconds 22.8-34.4 N (test code = PTT) BASIC METABOLIC [id number] 14:21:00 Test Item Value Reference Range Interpretation [...] code = 10.2 mg/dL 8.5-10.1 H CA) [id number] 14:21:00 Test Item Value Reference Range Interpretation Comments LIPASE (test code = LIP) 68 U/L 73-393 L [id number] 14:21:00 Test Item Value Reference Range Interpretation Comments TROPONIN-I (test <0.015 ng/ml 0.00-0.045 N GUIDELINES: 0.08 - 0.09 code = TROPI) Indeterminate0 .10 Risk Stratifica tion Limit: Suggest sequential te sting0.60 - 1.50 AMI cut off: Myocardial Inju ry by WHO criteria CBC W/AUTO [id number] 14:11:00 Test Item Value Reference Range Interpretation [...] code = 0.00 K/mm3 0.0-0.1 N NRBC#) [id number] 09:36:00 Test Item Value Reference Range Interpretation Comments GLUBED (test code = 314 mg/dL 70-105 H Performe d by certified GLUBED) inserter operator at [facility] [id number] 09:36:00 Test Item Value Reference Range Interpretation Comments GLUBED (test code = 288 mg/dL 70-105 H Performe d by certified GLUBED) inserter operator at [facility] BASIC METABOLIC [id number] 06:10:00 Test Item Value Reference Range Interpretation [...] = 9.4 mg/dL 8.5-10.1 N CA) LIVER [id number] 06:10:00 Test Item Value Reference Range Interpretation [...] 68 U/L 50-136 N code = ALKP) [id number] 06:10:00 Test Item Value Reference Range Interpretation Comments TRIGLYCERIDES (test code = TRIG) 225 mg/dL 30-150 H [id number] 06:10:00 Test Item Value Reference Range Interpretation Comments LIPASE (test code = LIP) 56 U/L 73-393 L BETA [id number] 06:10:00 Test Item Value Reference Range Interpretation Comments BETA HYDROBUTYRATE (test code = 2.70 mmol/L 0.00-0.28 H BETHYD) BASIC METABOLIC [id number] 06:03:00 Test Item Value Reference Range Interpretation [...] = CA) 9.4 mg/dL 8.5-10.1 N LIVER [id number] 06:03:00 Test Item Value Reference Range Interpretation [...] TOTAL (test U/L 50-136 code = ALKP) [id number] 06:03:00 Test Item Value Reference Range Interpretation Comments TRIGLYCERIDES (test code = TRIG) mg/dL 30-150 [id number] 06:03:00 Test Item Value Reference Range Interpretation Comments LIPASE (test code = LIP) U/L 73-393 BETA [id number] 06:03:00 Test Item Value Reference Range Interpretation Comments BETA HYDROBUTYRATE (test code = mmol/L 0.00-0.28 BETHYD) CBC W/AUTO [id number] 05:59:00 Test Item Value Reference Range Interpretation [...] 0.00 K/mm3 0.0-0.1 N NRBC#) CBC W/AUTO [id number] 06:20:00 Test Item Value Reference Range Interpretation [...] ESTIMATE (test code = INCREASED ADEQUATE PLTEST) [id number] 04:38:00 Test Item Value Reference Range Interpretation Comments GLUBED (test code = 379 mg/dL 70-105 H Performe d by certified GLUBED) inserter operator at [facility] - CT ABD PELVIS W/O [id number] 00:16:00 Name: RADHA CARPENTER [facility] : 1980 Age/S: 38 / M [address] [facility] Unit #: [id number] Loc: [place], [place] [address] Phys: Francisco J,Emir DO Acct: [id number] Dis Date: Status: REG ER PHONE #: [phone] Exam Date: 05/20/2019 2356 FAX #: [phone] Reason: PAIN EXAMS: CPTCODE: [id number] CT ABD PELVIS W/O CONT 43985 LOCATION: 3 EXAM: - CT ABD PELVIS W/O CONT [...] 1 Signed Report (CONTINUED) Name: RADHA CARPENTER [facility] : 1980 Age/S: 38 / M [address] [facility] Unit #: [id number] Loc: [place], [place] [address] Phys: [facility] Acct: [id number] Dis Date: Status: REG ER PHONE #: [phone] Exam Date: 05/20/2019 2356 FAX #: [phone] Reason: PAINEXAMS: CPT CODE: [id number] CT ABD PELVIS W/O CONT 78748 <Continued> evidence of pneumoperitoneum. Bones and soft tissues: The osseous structures are intact. Appliance overliesthe left abdominal wall with lead tips anterior to the distal gastric body. IMPRESSION: Essentially unremarkable noncontrast CT examination of the abdomen and pelvis without evidence of acute intra-abdominal pathology. at 0016 Reported and signed by: ISSA MG MD. CC: [facility]; Galindo Chris MD Technologist:Raman Aburto RTCTDI: 10.59 DLP: 623.67 Trnscb Date/Time: 05/21/2019 (0016) t.SDR.NS15 Orig Print D/T: S: 05/21/2019 (0019) PAGE 2 Signed ReportUA RFLX MICROSCOPIC [id number] 00:07:00 Test Item Value Reference Range Interpretation [...] Dysuria/FrequencyURINE SOURCE: CLEAN CATCH URINE BASIC METABOLIC [id number] 23:38:00 Test Item Value Reference Range Interpretation [...] 10.0 mg/dL 8.5-10.1 N CA) RECOLLECTION HEMOLYZEDLIVER [id number] 23:38:00 Test Item Value Reference Range Interpretation [...] U/L 50-136 N code = ALKP) RECOLLECTION [id number] 23:38:00 Test Item Value Reference Range Interpretation Comments LIPASE (test code = LIP) 42 U/L 73-393 L RECOLLECTION HEMOLYZEDCBC W/AUTO [id number] 23:03:00 Test Item Value Reference Range Interpretation [...]
[2021-09-15 00:28] LABS: Arterial Blood Carboxyhemoglob 1.4 % (0-1.5); Blood Gas Oxyhemoglobin 92.5 % (94-97); Blood O2 Saturation 95.1 % (92-98.5)
[2021-09-15 00:33] LABS: Hematocrit 36.5 % (39.6-49.0); Lymphocytes % 16.4 % (15.3-44.8); MPV 8.2 fL (7.6-11.3); RBC Red Blood Cell Count 4.04 M/uL (4.33-5.43)
[2021-09-15] MEDS ORDERED: MORPHINE 4 MG/ML SYR ONE (00:33)
[2021-09-15] MEDS ORDERED: NA CHLORIDE 0.9% 1,000 ML ONE (00:33)
[2021-09-15] MEDS ORDERED: ONDANSETRON 4 MG/2 ML VIAL ONE (00:33)
[2021-09-15 00:39] LABS: Protime INR 0.99
[2021-09-15 00:50] LABS: Albumin 3.5 g/dL (3.4-5.0); Bilirubin Total 0.4 mg/dL (0.2-1.0)
[2021-09-15] MEDS ORDERED: ACETAMINOPHEN 500 MG TAB ONE (00:55)
[2021-09-15] MEDS ORDERED: NA CHLORIDE 0.9% 2,000 ML ONE (01:10)
--- NOTE | 2021-09-15 01:25 | ER ---
Nurse's Notes [facility] Name: Christian Lee Age: 41 yrs Sex: Male : 1980 Arrival Date: 09/14/2021 Time: 23:40 Bed 18 Private MD: Diagnosis: Diabetic wound infection;Sepsis;Diabetes with Hyperglycemia Presentation: 09/14 23:59 Chief complaint: Patient states: "I have this infection on my foot, but today it tw5 started to really hurt and smell. I also feel like I may have a fever, I just dont feel good.". Initial Sepsis Screen: Does the patient meet any 2 criteria? RR > 20 per min. Temp <36.0*C (96.8*F)) or > 38.3*C (100.9*F). HR > 90 bpm. Yes Does the patient have a suspected source of infection? Yes: Skin breakdown/wound If YES to both, name of provider notified: Pernell Radford MD 23:59 Method Of Arrival: Wheelchair tw5 09/15 00:24 Coronavirus screen: Vaccine status: Patient reports receiving the 2nd dose of the covid richard vaccine. Ebola Screen: Patient negative for fever greater than or equal to 101.5 degrees Fahrenheit, and additional compatible Ebola Virus Disease symptoms Patient denies exposure to infectious person. Patient denies travel to an Ebola-affected area in the 21 days before illness onset. 00:24 Acuity: IRINEO 2 richard 00:25 Risk Assessment: Do you want to hurt yourself or someone else? Patient reports no richard desire to harm self or others. 00:25 Onset of symptoms was September 15, 2021. richard Triage Assessment: 00:24 General: Appears uncomfortable, Behavior is calm, cooperative. Pain: Complains of pain richard in right foot. 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 - Social history:: Smoking status: Patient denies any tobacco usage or history of. Screenin:11 Abuse screen: Denies threats or abuse. Denies injuries from another. Nutritional richard screening: No deficits noted. Tuberculosis screening: No symptoms or risk factors identified. Fall Risk None identified. Assessment: 00:07 Reassessment: The pt was brought to room #18, by the triage nurse, accompanied by his richard , who also is to be seen. I asked that she be placed in another room, not with her . The triage nurse paged a "Code Sepsis", after VS taken in the room. He appears in NAD. 02:28 Reassessment: Registration called, as the pt has been assigned a room upstairs, 221. richard Report will be called. 02:34 Reassessment: Report called to 2nd floor. richard Vital Signs: 09/14 23:58 BP 146 / 91; Pulse 134; Resp 22; Temp 100.9(O); Pulse Ox 100% on R/A; Weight 95.25 kg; tw5 Height 6 ft. 1 in. (185.42 cm); 09/15 00:14 BP 142 / 93; Pulse 134; Resp 20; Temp 100.7(O); Pulse Ox 99% on R/A; Pain 4/10; richard 00:59 BP 136 / 64; Pulse 119; Resp 20; Pulse Ox 97% on R/A; Pain 2/10; richard 02:05 BP 135 / 74; Pulse 113; Resp 20; Temp 98.5; Pulse Ox 97% on R/A; Pain 0/10; richard 09/14 23:58 Body Mass Index 27.71 (95.25 kg, 185.42 cm) tw5 ED Course: 09/14 23:40 Patient arrived in ED. kz 23:50 Yas Holder, MOSES is Primary Nurse. richard 23:53 Pernell Radford MD is Attending Physician. mh7 09/15 00:10 First set of blood cultures drawn by me. Missed attempt(s): 18 gauge in right jb4 antecubital area. 00:12 Placed in gown. Bed in low position. Call light in reach. in room next door, as richard she is wanting to be seen, as well. 00:12 No provider procedures requiring assistance completed. richard 00:15 Inserted saline lock: 20 gauge in right hand, using aseptic technique. Blood collected. jb4 00:15 Initial lab(s) drawn, by me, sent to lab. Second set of blood cultures drawn by me. jb4 00:25 Triage completed. richard 00:25 Arm band placed on right wrist. richard 00:40 COVID-19/FLU A+B (Document "Date of Onset" if Symptomatic) Sent. richard 00:52 Notified ED physician of a critical lab result(s). lacatate 2.4. tw5 00:54 Blood Culture Adult (2) Sent. richard 01:05 Chest Single View XRAY In Process Unspecified. EDMS 01:05 Foot Right 3 View XRAY In Process Unspecified. EDMS 01:07 Door closed. tw5 01:07 Inserted saline lock: 20 gauge in right antecubital area, using aseptic technique. tw5 Blood collected. 01:17 COVID-19/FLU A+B (Document "Date of Onset" if Symptomatic) Sent. richard 01:22 Simeon Poe MD is Hospitalizing Provider. mh7 01:34 Ketone, Serum Sent. richard 02:06 Urine Culture Sent. richard 02:06 Urine Microscopic Only Sent. richard Administered Medications: 00:48 Drug: morphine 4 mg Route: IVP; Site: right hand; richard 01:49 Follow up: Response: No adverse reaction; Pain is decreased richard 00:48 Drug: Zofran (Ondansetron) 4 mg Route: IVP; Site: right hand; richard 01:50 Follow up: Response: No adverse reaction richard 00:53 Drug: Acetaminophen 1000 mg Route: PO; richard 00:53 Drug: NS 0.9% (30 ml/kg) 30 ml/kg Route: IV; Rate: bolus; Site: right hand; richard 01:43 Drug: Insulin Regular Human 10 units {Co-Signature: ke1 (Zulay Phillips RN).} Route: richard Sub-Q; Site: left upper arm; 01:49 Follow up: Response: No adverse reaction; Pain is decreased richard 01:50 Drug: LevaQUIN (levofloxacin) 750 mg Volume: 150 ml; Route: IVPB; Infused Over: 90 richard mins; Site: right hand; 02:23 Drug: morphine 2 mg Route: IVP; Site: right antecubital; richard Point of Care Testing: Blood Glucose: 00:58 Blood Glucose: 290 mg/dL; richard Ranges: Outcome: 00:25 Condition: stable richard 01:24 Decision to Hospitalize by Provider. [facility] 02:56 Admitted to Med/surg via wheelchair. richard 02:57 Patient left the ED. richard Signatures: Dispatcher [employer] EDMo Leavitt RN RN jb4 Pernell Radford MD MD 7 Janene Sandoval 5 Yas Holder RN RN Suma Riggs RN ke1 Corrections: (The following items were deleted from the chart) 02:35 02:30 Reassessment: richard richard
--- NOTE | 2021-09-15 01:25 | EDPHYS ---
Physician Documentation [facility] Name: Christian Lee Age: 41 yrs Sex: Male : 1980 Arrival Date: 09/14/2021 Time: 23:40 Bed 18 Private MD: ED Physician Pernell Radford HPI: 09/15 00:34 This 41 yrs old Male presents to ER via Wheelchair with complaints of Wound to mh7 right foot. 00:34 The patient presents with pain, that is acute, wound, right foot. The complaints affect mh7 the right foot. Context: The problem was sustained at home, resulted from an unknown cause, Mechanism of Injury: no injury the patient can fully bear weight, the patient is able to ambulate, with mild difficulty. Onset: The symptoms/episode began/occurred yesterday. Modifying factors: The symptoms are alleviated by nothing, the symptoms are aggravated by nothing. Associated signs and symptoms: Pertinent positives: fever, Pertinent negatives: calf tenderness, nausea, numbness, rash, tingling, vomiting, weakness. Severity of symptoms: At their worst the symptoms were moderate, yesterday, in the emergency department the symptoms are unchanged. States that he has a wound on the sole of his foot for several months that he has been getting treated. He has been having pain to the foot and thinks wound has been getting worse over the past few days.. Historical: - Allergies: 00:10 Clonidine; richard 00:10 Compazine; richard 00:10 [place]; GI problems; richard 00:10 Reglan; richard 00:10 tramadol; GI problems; richard - Home Meds: 00:10 Lantus Sub-Q [Active]; lisinopril-hydrochlorothiazide Oral [Active]; Motilium [Active]; richard nortriptyline Oral [Active]; Novolog Sub-Q [Active]; Simvastatin Oral [Active]; - PMHx: 00:10 diabetes mellitus; Gastroparesis; Hypertensive disorder; insomnia; neuropathy; richard - PSHx: 00:10 2nd toe amputation R foot; 3rd and 4th toe amputation to Right foot; richard - Immunization history:: Client reports receiving the 2nd dose of the Covid vaccine. - Social history:: Smoking status: Patient denies any tobacco usage or history of. ROS: 00:34 Eyes: Negative for injury, pain, redness, and discharge, ENT: Negative for injury, mh7 pain, and discharge, Neck: Negative for injury, pain, and swelling, Cardiovascular: Negative for chest pain, palpitations, and edema, Respiratory: Negative for shortness of breath, cough, wheezing, and pleuritic chest pain, Abdomen/GI: Negative for abdominal pain, nausea, vomiting, diarrhea, and constipation, Back: Negative for injury and pain, : Negative for injury, bleeding, discharge, and swelling, Skin: Negative for injury, rash, and discoloration, Neuro: Negative for headache, weakness, numbness, tingling, and seizure, Psych: Negative for depression, anxiety, suicide ideation, homicidal ideation, and hallucinations, Allergy/Immunology: Negative for hives, rash, and allergies, Endocrine: Negative for neck swelling, polydipsia, polyuria, polyphagia, and marked weight changes, Hematologic/Lymphatic: Negative for swollen nodes, abnormal bleeding, and unusual bruising. Exam: 00:34 Head/Face: Normocephalic, atraumatic. Eyes: Pupils equal round and reactive to light, mh7 extra-ocular motions intact. Lids and lashes normal. Conjunctiva and sclera are non-icteric and not injected. Cornea within normal limits. Periorbital areas with no swelling, redness, or edema. Neck: Trachea midline, no thyromegaly or masses palpated, and no cervical lymphadenopathy. Supple, full range of motion without nuchal rigidity, or vertebral point tenderness. No Meningismus. Chest/axilla: Normal chest wall appearance and motion. Nontender with no deformity. No lesions are appreciated. 00:34 Respiratory: Lungs have equal breath sounds bilaterally, clear to auscultation and percussion. No rales, rhonchi or wheezes noted. No increased work of breathing, no retractions or nasal flaring. Abdomen/GI: Soft, non-tender, with normal bowel sounds. No distension or tympany. No guarding or rebound. No evidence of tenderness throughout. Back: No spinal tenderness. No costovertebral tenderness. Full range of motion. 00:34 Neuro: Awake and alert, GCS 15, oriented to person, place, time, and situation. Cranial nerves II-XII grossly intact. Motor strength 5/5 in all extremities. Sensory grossly intact. Cerebellar exam normal. Normal gait. Psych: Awake, alert, with orientation to person, place and time. Behavior, mood, and affect are within normal limits. 00:34 Constitutional: The patient appears alert, awake, febrile, obviously ill, uncomfortable. 00:34 Cardiovascular: Rate: tachycardic, Rhythm: regular, Pulses: no pulse deficits are appreciated, Heart sounds: normal, normal S1and S2, Edema: is not appreciated, JVD: is not appreciated. 00:34 Musculoskeletal/extremity: Extremities: noted in the right foot, plantar aspect: pain, tenderness, chronic wound, without erythema or discharge, ROM: intact in all extremities, Circulation is intact in all extremities. Sensation intact. Compartment Syndrome exam of affected extremity: is normal. no numbness, no tingling, no sensation deficit, no palor, no weak pulses, Joints: All joints appear normal with full range of motion. Weight bearing: able to fully bear weight, Tendon exam: specific tendon testing normal through active and passive range of motion 00:34 Skin: Warm, dry with normal turgor. Normal color with no rashes, no lesions, and no mh7 evidence of cellulitis. Vital Signs: 09/14 23:58 BP 146 / 91; Pulse 134; Resp 22; Temp 100.9(O); Pulse Ox 100% on R/A; Weight 95.25 kg; tw5 Height 6 ft. 1 in. (185.42 cm); 09/15 00:14 BP 142 / 93; Pulse 134; Resp 20; Temp 100.7(O); Pulse Ox 99% on R/A; Pain 4/10; richard 00:59 BP 136 / 64; Pulse 119; Resp 20; Pulse Ox 97% on R/A; Pain 2/10; richard 02:05 BP 135 / 74; Pulse 113; Resp 20; Temp 98.5; Pulse Ox 97% on R/A; Pain 0/10; richard 09/14 23:58 Body Mass Index 27.71 (95.25 kg, 185.42 cm) tw5 MDM: 01:20 Differential diagnosis: fracture, sprain, arthritis, cellulitis, wound infection, mh7 Osteomyelitis. Data reviewed: vital signs, nurses notes, old medical records, lab test result(s), CBC, electrolytes, urinalysis, radiologic studies, plain films. Data interpreted: Pulse oximetry: on room air is 97 %. Interpretation: normal. Counseling: I had a detailed discussion with the patient and/or guardian regarding: the historical points, exam findings, and any diagnostic results supporting the discharge/admit diagnosis, the presence of at least one elevated blood pressure reading (>120/80) during this emergency department visit, lab results, radiology results, the need for further work-up and treatment in the hospital. Response to treatment: the patient's symptoms have mildly improved after treatment. 01:24 Patient medically screened. [facility] 09/15 00:06 Order name: Blood Culture Adult (2) [facility] 09/15 00:06 Order name: CBC with Diff; Complete Time: 00:38 [facility] 09/15 00:06 Order name: CMP; Complete Time: 00:52 [facility] 09/15 00:06 Order name: Lactate; Complete Time: 00:53 [facility] 09/15 00:06 Order name: Protime (+inr); Complete Time: 01:21 [facility] 09/15 00:06 Order name: Ptt, Activated; Complete Time: 01:21 [facility] 09/15 00:06 Order name: Urine Culture [facility] 09/15 00:06 Order name: Urine Microscopic Only [facility] 09/15 00:06 Order name: Chest Single View XRAY [facility] 09/15 00:06 Order name: ABG; Complete Time: 00:34 [facility] 09/15 00:11 Order name: COVID-19/FLU A+B (Document "Date of Onset" if Symptomatic) [facility] 09/15 01:09 Order name: Glucose, Ancillary Testing; Complete Time: 01:16 [facility] 09/15 01:21 Order name: Ketone, Serum [facility] 09/15 02:24 Order name: Urine Dipstick-Ancillary [facility] 09/15 00:06 Order name: Accucheck; Complete Time: 00:59 [facility] 09/15 00:06 Order name: Cardiac monitoring; Complete Time: 00:27 [facility] 09/15 00:06 Order name: EKG - Nurse/Tech; Complete Time: 00:24 [facility] 09/15 00:06 Order name: IV Saline Lock - Large Bore; Complete Time: 00:27 [facility] 09/15 00:06 Order name: Labs collected and sent; Complete Time: 00:27 [facility] 09/15 00:06 Order name: O2 Per Protocol; Complete Time: 00:27 [facility] 09/15 00:06 Order name: O2 Sat Monitoring; Complete Time: 00:27 [facility] 09/15 00:06 Order name: Foot Right 3 View XRAY [facility] 09/15 00:06 Order name: Urine Dipstick-Ancillary (obtain specimen); Complete Time: 02:06 [facility] Administered Medications: 00:48 Drug: morphine 4 mg Route: IVP; Site: right hand; richard 01:49 Follow up: Response: No adverse reaction; Pain is decreased richard 00:48 Drug: Zofran (Ondansetron) 4 mg Route: IVP; Site: right hand; richard 01:50 Follow up: Response: No adverse reaction richard 00:53 Drug: Acetaminophen 1000 mg Route: PO; richard 00:53 Drug: NS 0.9% (30 ml/kg) 30 ml/kg Route: IV; Rate: bolus; Site: right hand; richard 01:43 Drug: Insulin Regular Human 10 units {Co-Signature: keJaylin (Zulay Phillips RN).} Route: richard Sub-Q; Site: left upper arm; 01:49 Follow up: Response: No adverse reaction; Pain is decreased richard 01:50 Drug: LevaQUIN (levofloxacin) 750 mg Volume: 150 ml; Route: IVPB; Infused Over: 90 richard mins; Site: right hand; 02:23 Drug: morphine 2 mg Route: IVP; Site: right antecubital; richard Point of Care Testing: Blood Glucose: 00:58 Blood Glucose: 290 mg/dL; richard Ranges: Critical Glucose Levels:Adult <50 mg/dl or >400 mg/dl <40 mg/dl or >180 mg/dl Disposition Summary: 09/15/21 01:24 Hospitalization Ordered Hospitalization Status: Inpatient Admission [facility] Provider: Simeon Poe Sha Location: Telemetry/MedSurg (Inpatient) [facility] Condition: Fair [facility] Problem: new [facility] Symptoms: have improved [facility] Bed/Room Type: Standard [facility] Room Assignment: 221(09/15/21 02:22) Diagnosis - Diabetic wound infection [facility] - Sepsis [facility] - Diabetes with Hyperglycemia [facility] Forms: - Medication Reconciliation Form [facility] - SBAR form [facility] Signatures: Dispatcher [employer] Jeffrey Bloom FNP-C ENGINEERING TEST SPECIALIST-Cla1 Nano Lee RN RN Pernell Radford MD MD 7 Yas Holder RN RN bo Kouassi Ebrottie RN ke1 Corrections: (The following items were deleted from the chart) 02:22 01:24 [facility]
[2021-09-15] MEDS ORDERED: NA CHLORIDE 0.9% 500 ML ONE (01:29)
[2021-09-15] MEDS ORDERED: Levofloxacin 750mg IV 750 MG/150 ML BAG IV ONE (01:29)
[2021-09-15] MEDS ORDERED: VANCOMYCIN 1 GM/VIAL ONE (01:29)
[2021-09-15] MEDS ORDERED: VANCOMYCIN 500 MG/VIAL ONE (01:29)
[2021-09-15] MEDS ORDERED: INSULIN -REGULAR HUMAN 50 UNIT/0.5 ML ML ONE (01:31)
[2021-09-15 01:36] LABS: SARS-COV-2 RT PCR NEGATIVE (NEGATIVE)
--- NOTE | 2021-09-15 01:47 | P.HP ---
Certification for Inpatient Patient admitted to: Inpatient With expected LOS: >2 Midnights Patient will require the following post-hospital care: None Practitioner: I am a practitioner with admitting privileges, knowledge of patient current condition, hospital course, and medical plan of care. Services: Services provided to patient in accordance with Admission requirements found in Title 42 Section 412.3 of the Code of Federal Regulations <GlennyJeffrey Jon - Last Filed: 09/15/21 01:40> Patient History Date of Service: 09/15/21 Reason for admission: Sepsis, osteomyelitis History of Present Illness: 41-year-old male history of diabetes mellitus type 1insulin-dependent, hypertension, hyperlipidemia, history of osteomyelitis with multiple amputations presents the emergency department for right foot wound. Patient reports about 1 month ago he noticed an ulceration to the bottom of his right foot which ruptured with increased amount of purulent drainage, since then patient has been following up with his general surgeon to treat wound the last couple days he has had significantly more pain and started running fever today. Patient arrived to the emergency department was tachycardic and febrile sepsis was called. Patient was evaluated in the emergency department deemed to have sepsis/severe sepsis and suspected osteomyelitis. Will admit for further evaluation and management. - Past Medical/Surgical History -: T1DM -: gastoparesis -: neuropathy -: HLD -: HTN -: Osteomyelitis -: R foot diabetic ulcer debridement -: cholecystectomy -: gastroneuro stimulator implant -: multiple vascular procedures on R leg Psychosocial/ Personal History: Lives at home with family - Family History Father -: Diabetes Mother -: Diabetes - Social History Smoking Status: Never smoker Alcohol use: No CD- Drugs: No Caffeine use: Yes Place of Residence: Home <Jeffrey Murrieta - Last Filed: 09/15/21 01:40> Date of Service: 09/15/21 <Simeon Poe - Last Filed: 09/15/21 16:27> Allergies metoclopramide [From Reglan] Adverse Reaction (Intermediate, Verified 02/11/21 14:08) involuntary spasms clonidine Adverse Reaction (Verified 02/11/21 14:08) severe anxiety prochlorperazine [From Compazine] Adverse Reaction (Verified 02/11/21 14:08) severe anxiety Home Medications: Insulin Aspart [Novolog Penfill] 30 unit SQ AC 01/24/21 Insulin Glargine,Hum.rec.anlog [Lantus] 50 units SQ BID 01/24/21 Nortriptyline HCl [Pamelor] 50 mg PO BEDTIME 01/24/21 Zolpidem Tartrate 10 mg PO BEDTIME 01/24/21 Famotidine 20 mg PO DAILY 09/15/21 Lisinopril [Zestril] 5 mg PO DAILY 09/15/21 Simvastatin 5 mg PO DAILY 09/15/21 Review of Systems 10-point ROS is otherwise unremarkable General: Fever, Chills, Weakness, Malaise Musculoskeletal: Foot Pain, As per HPI <Jeffrey Murrieta - Last Filed: 09/15/21 01:40> Physical Examination - Physical Exam General: Alert, In no apparent distress, Oriented x3 HEENT: Atraumatic, PERRLA, Mucous membr. moist/pink, EOMI, Sclerae nonicteric Neck: Supple, 2+ carotid pulse no bruit, No LAD, Without JVD or thyroid abnormality Respiratory: Clear to auscultation bilaterally, Normal air movement Cardiovascular: Regular rate/rhythm (Sinus tachycardia rate 115), Normal S1 S2 Capillary refill: <2 Seconds Gastrointestinal: Normal bowel sounds, No tenderness Musculoskeletal: Erythema, Tenderness Integumentary: No rashes, Diabetic ulcer (plantar Aspect of right foot with surrounding erythema and purulent drainage noted) Neurological: Normal speech, Normal strength at 5/5 x4 extr, Normal tone, Normal affect Lymphatics: No axilla or inguinal lymphadenopathy - Studies Laboratory Data (last 24 hrs) 09/15/21 00:10: PT 10.9, INR 0.99, APTT 33.8 09/15/21 00:10: Sodium 137, Potassium 4.0, BUN 22 H, Creatinine 1.38 H, Glucose 350 H, Total Bilirubin 0.4, AST 21, ALT 37, Alkaline Phosphatase 94 09/15/21 00:10: WBC 12.0 H, Hgb 12.2 L, Hct 36.5 L, Plt Count 297 <Jeffrey Murrieta - Last Filed: 09/15/21 01:40> - Studies Laboratory Data (last 24 hrs) 09/15/21 00:10: PT 10.9, INR 0.99, APTT 33.8 09/15/21 00:10: Sodium 137, Potassium 4.0, BUN 22 H, Creatinine 1.38 H, Glucose 350 H, Total Bilirubin 0.4, AST 21, ALT 37, Alkaline Phosphatase 94 09/15/21 00:10: WBC 12.0 H, Hgb 12.2 L, Hct 36.5 L, Plt Count 297 <Simeon Poe - Last Filed: 09/15/21 16:27> Assessment and Plan - Plan Assessment: Sepsis/severe sepsis secondary to suspected osteomyelitis the proximal phalanx right great toe Acute kidney injury suspect related to severe sepsis Diabetes mellitus type 1 with hyperglycemia Plan: Sepsis/severe sepsis secondary to suspected osteomyelitis the proximal phalanx right great toe: Lactate 2.4, no hypotension creatinine mildly elevated compared to baseline possibly related to severe sepsis. Continue broad-spectrum antibiotics for suspected osteomyelitis we will obtain CT to further evaluate as MRI is not available this weekend. General surgery consulted. Appreciate further input from general surgery. Acute kidney injury suspect related to severe sepsis: Patient received sepsis IV fluid bolus in the ER IV fluids, recheck chemistries tomorrow consult nephrology for worsening. Diabetes mellitus type 1 with hyperglycemia: ACHS Accu-Chek, sliding scale insulin. Patient takes 50 units twice daily of Lantus at home as well as 30 units 3 times daily with meals at home. Patient n.p.o. at this time in anticipation of surgical evaluation, we will need to restart lower doses of patient's long-acting insulin. DVT PPX: SCD until it is determined if patient will be having surgical procedure Code status: Full Discharge Plan: Home Plan to discharge in: Greater than 2 days - Advance Directives Does patient have a Living Will: No Does patient have a Durable POA for Healthcare: No - Code Status/Comfort Care Code Status Assessed: Yes (Full code) Critical Care: No Time Spent Managing Pts Care (In Minutes): 55 <Jeffrey Murrieta - Last Filed: 09/15/21 01:40> - Plan Patient seen early this morning on rounds. Feels about the same, no significant change. CT without definitive findings for acute osteomyelitis, revealed multiple fractures in proximal phalanx of great toe. cannot exclude chronic osteomyelitis. Continues with pain Continue antibiotics, okay to eat, adjust insulin as needed N.p.o. after midnight, general surgery consulted <Simeon Poe - Last Filed: 09/15/21 16:27>
[2021-09-15 02:24] LABS: Urine Blood 2+ (Negative); Urine Glucose 3+ (Negative); Urine Protein Negative (Negative); Urine Specific Gravity 1.015 (1.005-1.030)
[2021-09-15] MEDS ORDERED: MORPHINE 2 MG/ML SYR ONE (02:24)
[2021-09-15 02:26] LABS: Urine Bacteria <20 /HPF (NONE SEEN)
[2021-09-15] MEDS: Levofloxacin500mg IV 500 MG/100 ML BAG IV SCH (02:56)
[2021-09-15] MEDS ORDERED: VANCOMYCIN 1 GM in NA CHLORIDE 0.9% 250 ML IVPB SCH (02:56)
[2021-09-15] MEDS ORDERED: ACETAMINOPHEN 500 MG TAB PO PRN (02:56)
[2021-09-15] MEDS ORDERED: NA CHLORIDE 0.9% 1,000 ML IV SCH (02:56)
[2021-09-15] MEDS ORDERED: MORPHINE 2 MG/ML SYR IV PRN (02:56)
[2021-09-15] MEDS ORDERED: VANCOMYCIN 1 GM in NA CHLORIDE 0.9% 250 ML IVPB ONE (03:30)
[2021-09-15] MEDS: INSULIN -REGULAR HUMAN 50 UNIT/0.5 ML ML SQ SCH ×4 (07:30→21:00)
[2021-09-15 07:48] VITALS: BMI 27.7
[2021-09-15] MEDS ORDERED: HYDROCODONE/APAP 5/325 MG TAB PO PRN (08:24)
[2021-09-15] MEDS: ONDANSETRON 4 MG/2 ML VIAL IV PRN ×2 (08:41→15:58)
[2021-09-15] MEDS: MORPHINE 2 MG/ML SYR IV PRN ×4 (08:42→20:27)
--- NOTE | 2021-09-15 08:52 | RAD REPORT ---
EXAM DESCRIPTION: CT - Foot Right Wo Con - 09/15/2021 7:37 am CLINICAL HISTORY: eval for osteo Foot pain and swelling COMPARISON: Foot Right 3 View dated 09/15/2021 FINDINGS: Moderate vascular calcification is present. Prior amputation noted second through fifth toes. Linear defect is noted in the proximal phalanx of the great toe most compatible with fracture. No def initive osteomyelitis is seen. IMPRESSION: No definitive finding for acute osteomyelitis. However, MRI the foot would be more sensi tive for detection of osteomyelitis in this setting. Several fractures are present in the proximal phalanx of the great toe a sclerotic appearance to the bone in this region. Chronic osteomyelitis cannot be excluded. All CT scans are performed using dose optimization technique as appropriate and may include automated exposure control or mA/KV adjustment according to patient size.
[2021-09-15] MEDS: PROMETHAZINE INJ 25 MG/ML AMP IV PRN ×2 (11:34→17:05)
[2021-09-15] MEDS: NA CHLORIDE 0.9% 1,000 ML IV SCH (15:59)
[2021-09-15] MEDS: VANCOMYCIN 1.75 GM in NA CHLORIDE 0.9% 500 ML IVPB SCH (16:00)
[2021-09-16] MEDS: MORPHINE 2 MG/ML SYR IV PRN ×3 (00:33→08:36)
[2021-09-16] MEDS: PROMETHAZINE INJ 25 MG/ML AMP IV PRN ×4 (00:33→23:53)
[2021-09-16] MEDS: Levofloxacin500mg IV 500 MG/100 ML BAG IV SCH (01:57)
[2021-09-16] MEDS: VANCOMYCIN 1.75 GM in NA CHLORIDE 0.9% 500 ML IVPB SCH ×2 (04:25→17:01)
[2021-09-16 05:39] LABS: Absolute Lymphocytes (CBC) 1.8 K/uL (0.7-4.9); Hematocrit 34.8 % (39.6-49.0); Lymphocytes % 25.4 % (15.3-44.8); MPV 7.8 fL (7.6-11.3); RBC Red Blood Cell Count 3.82 M/uL (4.33-5.43)
[2021-09-16 06:00] LABS: ALT/SGPT 29 U/L (12-78); AST/SGOT 18 U/L (15-37); Albumin 2.7 g/dL (3.4-5.0); Alkaline Phosphatase 78 U/L (45-117); BUN Blood Urea Nitrogen 13 mg/dL (7-18); Bicarbonate 24 mmol/L (21-32); Bilirubin Total 0.4 mg/dL (0.2-1.0); Glucose Level 225 mg/dL (74-106); Potassium 4.1 mmol/L (3.5-5.1); Sodium Level 138 mmol/L (136-145)
--- NOTE | 2021-09-16 06:41 | P.PN ---
Date of Service: 09/16/21 Subjective: pain slightly better ROS: 10 point ROS as noted above, otherwise negative Physical exam GEN: Alert, oriented, uncomfortable appearing HEENT: Normal conjunctiva, sclera anicteric CV: Regular rate and rhythm, no edema Pulm: Nonlabored respirations on room air ABD: Soft, nontender, nondistended Integumentary: plantar aspect of right foot: surrounding erythema and drainage, foul odor Neuro: Normal speech, normal affect Problem List Sepsis/severe sepsis secondary to suspected osteomyelitis the proximal phalanx right great toe Acute kidney injury suspect related to severe sepsis Diabetes mellitus type 1 with hyperglycemia Continue empiric antibiotics, CT without findings of acute osteomyelitis General surgery consulted, plan to take patient to the OR today for debridement Multiple fractures seen of the proximal phalanx of the right great toe, possible chronic osteomyelitis Pain medication as needed IV fluids, as patient is n.p.o. Renal function improved Continue long-acting insulin, sliding scale VTE: SCDs, for surgery today Code: Full Dispo: Home with, 1-2 days Time Spent Managing Pts Care (In Minutes): 35
[2021-09-16] MEDS: INSULIN -REGULAR HUMAN 50 UNIT/0.5 ML ML SQ SCH ×4 (07:30→20:33)
[2021-09-16] MEDS ORDERED: PNEUMOCOCCAL VACCINE 0.5 ML IMVAC ONE (08:00)
[2021-09-16] MEDS ORDERED: NA CHLORIDE 0.9% 0 ML ONE (11:22)
[2021-09-16] MEDS ORDERED: NA CHLORIDE 0.9% 1,000 ML ONE (11:24)
[2021-09-16] MEDS ORDERED: BUPIVACAINE 0.25% PF 10 ML VIAL ONE (11:42)
[2021-09-16] MEDS ORDERED: SODIUM HYPOCHLORITE 0.25% 473 ML ONE (11:42)
[2021-09-16] MEDS ORDERED: MIDAZOLAM HCL 2 MG/2 ML INJ ONE (11:45)
[2021-09-16] MEDS ORDERED: propofoL 200 MG/20 ML VIAL IV ONE ×2 (11:55→12:16)
[2021-09-16] MEDS ORDERED: FENTANYL CITR 100 MCG/2 ML ONE (11:55)
[2021-09-16] MEDS ORDERED: LIDOCAINE 1% MPF 5 ML VIAL ONE (11:55)
[2021-09-16] MEDS ORDERED: dexAMETHasone 10 MG/ML VIAL ONE (12:08)
[2021-09-16] MEDS ORDERED: KETOROLAC 30 MG/ML INJ ONE (12:13)
[2021-09-16] MEDS ORDERED: BUPIVACAINE 0.25% PF 10 ML VIAL IJ ONE ×2 (12:21)
--- NOTE | 2021-09-16 12:29 | P.OP ---
Preoperative diagnosis: RIGHT foot infected wound Postoperative diagnosis: RIGHT foot infected wound Primary procedure: Debridement of RIGHT foot infected wound Anesthesia: GETA + Local Estimated blood loss: <2cc Specimen: debridement tissue Findings: necrosis to tissues extending to capsule of metatarsal Complications: None Transferred to: Recovery Room Condition: Good
[2021-09-16] MEDS: MORPHINE 4 MG/ML SYR ONE ×2 (12:53→12:58)
--- NOTE | 2021-09-16 13:00 | RAD REPORT ---
EXAM DESCRIPTION: Chest Single View 09/15/2021 1:20 AM CDT CLINICAL HISTORY: 41 years, Male, FEVER COMPARISON: None. FINDINGS: Single view of the chest was obtained portable. No prior films are available for compariso n. The cardiomediastinal silhouette demonstrate to be unremarkable. The heart is not enlarged. The thoracic aorta is unremarkable. The pulmonary vascular structures menstruation. Costophrenic angles a re sharp. No areas of consolidation or masses are seen. External EKG leads within the [id number] limits diagnosis. The rest of the soft tissue and bony structures demonstrate to be unremarkable. IMPRESSION: No acute cardiopulmonary disease. Electronically signed by: Omer Love MD 09/15/2021 1:20 AM CDT Due to temporary technical issues with the PACS/Fluency reporting system, reports are being signed by the in house radiologist without review as a courtesy to ensure prompt reporting. The interpreting r adiologist is fully responsible for the content of the report.
--- NOTE | 2021-09-16 13:01 | RAD REPORT ---
EXAM DESCRIPTION: Foot Right 3 View 09/15/2021 1:20 AM CDT CLINICAL HISTORY: 41 years, Male, PAIN COMPARISON: None. FINDINGS: 3 X-ray views of the right foot (Frontal, lateral and oblique views) were performed. There is a status post appendectomy dilatation of the second third fourth toes. There is abnormal def ormity and increased sclerosis along the proximal phalanx right great toe. There is focal area of the ulceration/gap at the level of the amputation within the second toe/between the second third metatar amelia. There are heavy vascular consultation of the dorsalis pedis and interdigital arteries. IMPRESSION: Soft tissue ulceration/gap at the level of the second toe/between the second third metat arsal. No evidence for acute bony injuries. Abnormal appearance of the proximal phalanx right great toe for which the possibility of osteomyeliti s cannot be excluded Electronically signed by: Omer Love MD 09/15/2021 1:22 AM CDT Due to temporary technical issues with the PACS/Fluency reporting system, reports are being signed by the in house radiologist without review as a courtesy to ensure prompt reporting. The interpreting r adiologist is fully responsible for the content of the report.
[2021-09-16] MEDS: HYDROMORPHONE HCL 1 MG/ML INJ ONE ×2 (13:09→13:19)
--- NOTE | 2021-09-16 13:55 | CON ---
Date of Consultation: 09/16/2021 Brief History Of Present Illness: The patient is a 41-year-old male, well known to me from previous surgical intervention of his right foot. He had infection at that time necessitating amputation, jessi ridements, and ultimately wound care. He had healed out completely, but as of the last week, he came to the my clinic with complaints of increased callus on his previous surgical site on the right plan tar foot near the previous amputation site, near the anterior aspect of the metatarsal previous phala ngeal joint resection. He had been initiated with some local wound care with some minimal improvemen t, but states that he felt significantly worse over the course of the weekend and as such he came to the hospital with the above-stated complaints. Past Medical History: Significant for type 1 diabetes, hypertension, hyperlipidemia, osteomyelitis, neuropathy. Past Surgical History: Includes a gastric neurostimulator placement, cholecystectomy, multiple vascu lar procedures on right lower extremity, right foot diabetic ulcer debridement, multiple amputations and debridements of the right foot. Family History: Significant for diabetes in both father and mother. He denies smoking, alcohol, or recreational drug use. Allergies: TO RAGLAN, CLONIDINE, AND COMPAZINE. Home Medications: Include insulin glargine, nortriptyline, Ambien, famotidine, lisinopril, simvastat in. Review of Systems: Ten-point review of systems other than HPI, he had fever, chills, weakness, malaise, and some foot pa in. Physical Examination: General: He is awake, alert, oriented. Psychiatric: Appropriate. Conversive. HEENT: Normocephalic. Sclerae anicteric. Mucous membranes moist. Oropharynx clear. Neck: Supple without JVD. Chest: Normal expansion and excursion. Cardiovascular: Regular rate and rhythm. Pulmonary: Clear to auscultation bilaterally. Abdomen: Soft. Extremities: Focused examination of extremities; on the right lower extremity, he has the previous a mputation site and along the second through third toes with a great toe and the fifth toe in place. There is a wound on the plantar aspect, which has the elevation and consistent with infection with ce llulitis and abnormal odor. Vital Signs: At time of examination were blood pressure 133/78, heart rate 94, respiratory rate 18, temperature 98.0, O2 sats were 95% on room air. Laboratory Data: Revealed a white blood count 7.0, hemoglobin 11.7, hematocrit 34.8, platelet count is 308. His sodium was 138, potassium 4.1, chloride 108, carbon dioxide 24, BUN 13, creatinine is 0. 81. His glucose was 350 on admission, now 225. Lactic acid 1.1. He had imaging performed, which in cluded a foot x-ray, chest x-ray as well and a foot CT. Right foot x-ray was officially read as soft tissue ulceration at the level of the second toes between the second and third metatarsals. No evid ence for acute bony injuries, abnormal appearance of the proximal phalanx, right great toe, which cou ld be possibly for osteomyelitis cannot be excluded. He had a CT of the foot as well, which was offi cially read as no definitive finding for acute osteomyelitis. However, MRI would be more sensitive f or detecting osteomyelitis in setting several fractures are present on proximal phalanx of the great toe and a sclerotic appearance of the bone in this region. Chronic osteomyelitis cannot be excluded. Assessment And Plan: This is a 41-year-old male, who comes in with a recurrent wound of his right fo ot without obvious evidence of osteomyelitis, however, chronic osteomyelitis is a concern. 1.IV fluid hydration. 2.Antibiotic coverage. 3.I have explained risks, benefits, and alternatives of debridement of the affected/infected right f oot plantar wound, including but not limited to bleeding, infection, damage to surrounding tissue, need for further operation and procedures. The patient agrees to proceed as indicated. TYESHA/ANNA Voice ID: [id number] Report ID: [id number]
[2021-09-16 13:57] VITALS: O2SAT 100
[2021-09-16] MEDS: NA CHLORIDE 0.9% 1,000 ML IV SCH ×3 (14:38→17:03)
[2021-09-16] MEDS: MORPHINE 4 MG/ML SYR IV PRN ×2 (17:00→21:47)
[2021-09-17] MEDS: Levofloxacin500mg IV 500 MG/100 ML BAG IV SCH (02:29)
[2021-09-17] MEDS: NA CHLORIDE 0.9% 1,000 ML IV SCH (02:29)
[2021-09-17] MEDS: MORPHINE 4 MG/ML SYR IV PRN ×2 (02:30→06:53)
--- NOTE | 2021-09-17 05:10 | OP ---
Date of Procedure: 09/16/2021 Surgeon: Darryn Sorenson MD, Preoperative Diagnosis: Right foot infected wound. Postoperative Diagnosis: Right foot infected wound. Procedure Performed: Debridement of right foot plantar infected wound. Anesthesia: General endotracheal plus local with 0.25% Marcaine. Estimated Blood Loss: 2 cc Specimen: Debridement tissue. Findings: Necrosis of tissue extending to the capsule of the metatarsals of this area at the third a nd fourth metatarsals. Complications: None. Disposition: The patient was transferred to recovery room in good condition. Procedure In Detail: After informed was obtained, the patient was brought to the operating room, pre pped and draped in the usual sterile fashion. After adequate anesthesia achieved, used a knife to cu t down through subcutaneous tissues over an area of obvious infection, pressure, and necrosis consist ent with diabetic ulcer. I then dissected circumferentially down using electrocautery and removed th is tissue using tenotomy scissors. At this point, this was sent off for pathologic examination. I d ebrided sharply the remainder of all necrotic and nonviable tissue down to extending to the capsule o rhona the synovial space of the third and fourth metatarsals. After all necrotic tissue was removed, I irrigated this area copiously, achieved hemostasis with electrocautery and then packed the wound wit h sterile dressing. The patient tolerated procedure without evidence of complication and transferred to PACU in good condition. All counts were correct at the end of the ca se. TK/MODL Voice ID: [id number] Report ID: [id number]
[2021-09-17 05:48] LABS: Absolute Lymphocytes (CBC) 1.8 K/uL (0.7-4.9); Hematocrit 33.2 % (39.6-49.0); Lymphocytes % 21.8 % (15.3-44.8); MPV 7.7 fL (7.6-11.3); RBC Red Blood Cell Count 3.67 M/uL (4.33-5.43)
[2021-09-17] MEDS: VANCOMYCIN 1.75 GM in NA CHLORIDE 0.9% 500 ML IVPB SCH (05:50)
[2021-09-17 06:05] LABS: Albumin 2.7 g/dL (3.4-5.0); Bilirubin Total 0.2 mg/dL (0.2-1.0); Potassium 3.8 mmol/L (3.5-5.1); Protein, Total 7.2 g/dL (6.4-8.2)
[2021-09-17] MEDS: PROMETHAZINE INJ 25 MG/ML AMP IV PRN (06:58)
[2021-09-17] MEDS ORDERED: Levofloxacin 250mg IV 250 MG/50 ML BAG IV ONE (08:00)
[2021-09-17] MEDS: INSULIN -REGULAR HUMAN 50 UNIT/0.5 ML ML SQ SCH ×2 (08:06→12:22)
--- NOTE | 2021-09-17 10:53 | P.DS ---
Admission Date: 09/15/21 Discharge Date: 09/17/21 Disposition: ROUTINE DISCHARGE Discharge Condition: FAIR Reason for Admission: Sepsis, osteomyelitis Brief History of Present Illness: 41-year-old male history of diabetes mellitus type 1insulin-dependent, hypertension, hyperlipidemia, history of osteomyelitis with multiple amputations presents the emergency department for right foot wound. Patient reports about 1 month ago he noticed an ulceration to the bottom of his right foot which ruptured with increased amount of purulent drainage, since he has been following up with his general surgeon to treat wound the last couple days he has had significantly more pain and started running fever today. Patient arrived to the emergency department was tachycardic and febrile sepsis was called. Foot CT showed several fractures present in the proximal phalanx of the great toe a sclerotic appearance to the bone in this region suspicious for chronic osteomyelitis. Patient deemed to have sepsis/severe sepsis and suspected osteomyelitis and admitted for further management. Hospital Course: Sepsis/severe sepsis secondary to suspected osteomyelitis the proximal phalanx right great toe Acute kidney injury suspect related to severe sepsis Diabetes mellitus type 1 with hyperglycemia Patient admitted to the medical floor and treated with broad-spectrum antibiotics. CT without findings of acute osteomyelitis General surgery consulted, Dr. Sorenson did debridement of right great toe and noted necrotic tissue down to the joint capsule. Dr. Sorenson service does not suspect osteomyelitis Renal function improved with IV hydration Blood sugar managed with long-acting insulin and sliding scale. Patient cleared for discharge by Dr. Sorenson. He is prescribed Bactrim and Levaquin to continue treatment for infected wound. Patient will follow with Dr. Sorenson within a few days for wound check and further management. Vital Signs/Physical Exam: Temp Pulse Resp BP Pulse Ox 97.3 F 97 H 20 147/77 H 96 09/17/21 08:00 09/17/21 08:00 09/17/21 08:00 09/17/21 08:00 09/17/21 08:00 General: Alert, In no apparent distress, Oriented x3 HEENT: Normocephalic, Mucous membr. moist/pink Neck: Supple, JVD not distended Respiratory: Clear to auscultation bilaterally, Normal air movement Cardiovascular: No edema, Regular rate/rhythm Gastrointestinal: Soft and benign, Non-distended Musculoskeletal: No swelling, No erythema Integumentary: No rashes, No cyanosis Neurological: Normal strength at 5/5 x4 extr Laboratory Data at Discharge: WBC 8.3 K/uL (4.3-10.9) D 09/17/21 05:26 Hgb 11.3 g/dL (13.6-17.9) L 09/17/21 05:26 Hct 33.2 % (39.6-49.0) L 09/17/21 05:26 Plt Count 345 K/uL (152-406) 09/17/21 05:26 PT 10.9 SECONDS (9.5-12.5) 09/15/21 00:10 INR 0.99 09/15/21 00:10 APTT 33.8 SECONDS (24.3-36.9) 09/15/21 00:10 Sodium 138 mmol/L (136-145) 09/17/21 05:26 Potassium 3.8 mmol/L (3.5-5.1) 09/17/21 05:26 BUN 19 mg/dL (7-18) H 09/17/21 05:26 Creatinine 1.05 mg/dL (0.55-1.3) 09/17/21 05:26 Glucose 240 mg/dL (74-106) H 09/17/21 05:26 Total Bilirubin 0.2 mg/dL (0.2-1.0) 09/17/21 05:26 AST 12 U/L (15-37) L 09/17/21 05:26 ALT 32 U/L (12-78) 09/17/21 05:26 Alkaline Phosphatase 87 U/L (45-117) 09/17/21 05:26 Home Medications: Insulin Aspart [Novolog Penfill] 30 unit SQ AC 01/24/21 Insulin Glargine,Hum.rec.anlog [Lantus] 50 units SQ BID 01/24/21 Nortriptyline HCl [Pamelor] 50 mg PO BEDTIME 01/24/21 Zolpidem Tartrate 10 mg PO BEDTIME 01/24/21 Famotidine 20 mg PO DAILY 09/15/21 Lisinopril [Zestril] 5 mg PO DAILY 09/15/21 Simvastatin 5 mg PO DAILY 09/15/21 Smz./Tmp. [Bactrim Ds 800 MG/160 MG] 1 tab PO BID #28 tab 09/17/21 levoFLOXacin [Levaquin] 750 mg PO DAILY #14 tab 09/17/21 New Medications: Smz./Tmp. [Bactrim Ds 800 MG/160 MG] 1 tab PO BID #28 tab levoFLOXacin [Levaquin] 750 mg PO DAILY #14 tab Diet: ADA Activity: Ad yasmani Followup: Darryn Sorenson MD [ACTIVE - CAN ADMIT] - 1 Week (call to schedule an appointment ) Mo Rascon MD [UNKNOWN] - 1-2 Weeks (CAll to schedule an appointment ) Time spent managing pt's care (in minutes): 38
[2021-09-17 12:07] VITALS: BP 128/74; TEMP 97
[2021-09-18] MEDS ORDERED: levoFLOXacin 750 MG TAB PO SCH (09:00)
[2021-09-18] MEDS ORDERED: Levofloxacin 750mg IV 750 MG/150 ML BAG IV SCH (09:00)
== END 2021-09-17 12:39 | disposition home or self-care (01) | DRG 854 ==
LOC: ER 23:33 → ERHOLD 09-15 01:29 → 2ND 09-15 02:29
PROVIDERS: ADMIT Hospitalist; ATTEND Hospitalist
PROC: 0JDQ0ZZ Extraction of Right Foot Subcutaneous Tissue and Fascia, Open Approach (ICD-10-PCS; principal; 2021-09-16 12:30)
DX: A41.9 Sepsis, unspecified organism (principal); N17.9 Acute kidney failure, unspecified; E10.52 Type 1 diabetes mellitus with diabetic peripheral angiopathy with gangrene; I96 Gangrene, not elsewhere classified; R65.20 Severe sepsis without septic shock; E10.65 Type 1 diabetes mellitus with hyperglycemia; E10.621 Type 1 diabetes mellitus with foot ulcer; L97.512 Non-pressure chronic ulcer of other part of right foot with fat layer exposed; I10 Essential (primary) hypertension; E78.5 Hyperlipidemia, unspecified; Z89.421 Acquired absence of other right toe(s); Z20.822 Contact with and (suspected) exposure to COVID-19
CPT/HCPCS: 0240U; 36415; 71045; 73700; 80053; 80202; 81003; 81015; 82010; 82805; 82947; 83036; 83605; 85025; 85610; 85730; 87040; 87086; 87088; 88304; 88305; 93005; 96372; 99285; J1100; J1170; J1815; J2250; J2270; J2405; J2550; J2704; J3010; J3370; J7030; J7040; J7050

== ENCOUNTER 2021-12-07 23:54 | Inpatient (IN) | payer OTHER ==
--- OUTSIDE RECORDS SUMMARY | 2021-12-08 | XMS REPORT | Continuity of Care Document ---
:1980 Author Organization [facility] t Address [address] [place] [address] Care Team Providers Name Role Phone HARDIK CARRASCO Primary Care Physician Unavailable HARDIK CARRASCO Attending Clinician Unavailable Hardik Carrasco MD Attending Clinician PREGEN Attending Clinician Unavailable HEAVEN Attending Clinician Unavailable YOHANNES Attending Clinician Unavailable Darwin William Attending Clinician Unavailable Aries Admitting Clinician Unavailable Darwin William Admitting Clinician Unavailable Payers Payer Name Policy Type Policy Number Effective Date Expiration Date S ource GENERIC COMMERCIAL [id number] 2016 00:00:00 HUMANA CHOICE [id number] 2020 00:00:00 MEDICARE-PART B 5 [id number] 2021 00:00:00 Problems Condition Condition Condition Status Onset Resolution Last Treating Co mments Source Name Details Category Date Date Treatment Clinician Date Tachycardi Tachycardi Disease Active U nivers a a 1-24 ity of 00:00: [place] 00 Medical Branch Type 1 Type 1 Disease Active Univers diabetes diabetes 1-24 ity of mellitus mellitus 00:00: [place] with with 00 Medical diabetic diabetic Branch polyneurop polyneurop athy athy Ear pain, Ear pain, Disease Active Uni vers bilateral bilateral 1-24 ity of 00:00: [place] 00 Medical Branch Allergies, Adverse Reactions, Alerts Allergy Allergy Status Severity Reaction(s) Onset Inactive Treating Comm ents Source Name Type Date Date Clinician CLONIDIN DRUG Active Anxiety Univers E INGREDI 1-24 ity of 00:00: [place] 00 Medical Branch PROCHLOR DRUG Active Anxiety 0 Univers PERAZINE INGREDI 1-24 ity of 00:00: [place] 00 Medical Branch HYDROCOD DRUG Active Other-Cmnt 0 Univ ers ONE INGREDI 1-24 ity of 00:00: [place] 00 Medical Branch METOCLOP DRUG Active Other-Cmnt Univ ers RAMIDE INGREDI 1-24 ity of 00:00: [place] 00 Medical Branch TRAMADOL DRUG Active Other-Cmnt Univ ers INGREDI 1-24 ity of 00:00: [place] 00 Medical Branch Clonidin Propensi Active Anxiety 0 Unive rs e ty to 1-24 ity of adverse 00:00: [place] reaction 00 Medical s Branch Prochlor Propensi Active Anxiety 0 Unive rs perazine ty to 1-24 ity of adverse 00:00: [place] reaction 00 Medical s Branch Hydrocod Propensi Active Other - See 0 Severe U nivers one ty to comments 1-24 stomach ity of adverse 00:00: pain [place] reaction 00 Medical s Branch Metoclop Propensi Active Other - See 0 Involunt a Univers ramide ty to comments 1-24 ry Muscle ity o f adverse 00:00: Spasms [place] reaction 00 Medical s Branch Tramadol Propensi Active Other - See 0 Severe U nivers ty to comments 1-24 stomach ity of adverse 00:00: pain [place] reaction 00 Medical s Branch prochlor DA Active MT ITCHING 0 [facility] perazine 3-29 [facility] 00[facility] prochlor DA Active MT 0 [facility] perazine 3-29 [facility] 00:00: [facility] haloperi DA Active U 2019-0 [facility] dol 01-21 [facility] 00:00: [facility] haloperi DA Active U STOMACH ACHE 2019-0 [facility] dol 906 [facility] 00:[facility] metoclop DA Active U 2019-0 [facility] ramide 7-16 [facility] 00:00: [facility] metoclop DA Active U JERKS AND 2020-0 [facility] SPASMS 16 [facility] 00:[facility]: [facility] clonidin DA Active U 2020-0 [facility] e 1 [facility]ac 00:00: [facility] metoclop DA Active U 2020-0 [facility] ramide 1 [facility] 00:00: [facility] clonidin DA Active U ANXIETY 2020-0 [facility] e 1 Isac 00:00: [facility] metoclop DA Active U MUSCLE 2020-0 [facility] ramide SPASMS 05-20 [facility] 00:00: [facility] clonidin DA Active U 2018-0 [facility] e 01-16 [facility] 00:00: [facility] metoclop DA Active U 2018-0 [facility] ramide 01-16 [facility] 00:00: [facility] clonidin DA Active U ANXIETY 2018-0 [facility] e 01-16 [facility]ac 00:00: [facility] 00 [facility] metoclop DA Active U MUSCLE 2018-0 [facility] ramide SPASMS 01-16 [facility] 00:00: [facility] 00 [facility] clonidin DA Active U 2018-0 [facility] e - [facility] 00:00: [facility] metoclop DA Active U 2018-0 [facility] ramide - Isac 00:00: [facility] 00 [facility] CLONIDIN Allergy Active Other 2017-[address] [facility] METOCLOP Allergy Active Other 2017-[address] [facility] [facility]IDE [facility] Social History Social Habit Start Date Stop Date Quantity Comments Source History [facility] [place] Alcohol Frequency Medical Branch History [facility] [place] Alcohol Std Drinks Medica l Branch History [facility] [place] Alcohol Binge Medical Bra [facility] Exposure to 2021-08-25 2021-09-04 Not sure [facility] SARS-CoV-2 (event) 00:00:00 13:09:00 Medica l Branch Alcohol Comment 2021-06-10 2021-06-10 [facility] 00:00:00 00:00:00 Medical Branch Tobacco use and 2021-05-25 2021-05-25 Never used [facility] exposure 00:00:00 00:00:00 Medical Branch Sex Ass[birth year] [facility] 00:00:00 00:00:00 Medical Branch Smoking Status Start Date Stop Date Source Never smoker [facility] Branch Medications Ordered Filled Start Stop Current Ordering Indication Dosage Frequency Signature Comments Components Source Medication Medication Date Date Medication? Clinician (SIG) Name Name insulin Yes [id number] 30U inject 30 U nivers aspart 4-22 Units ity of RAPID 00:00: under the [place] (NOVOLOG 00 skin 3 Medical U-100 (three) Branch INSULIN times ASPART) 100 daily with unit/mL meals. injection zolpidem 10 Yes [id number] 10mg Take 1 U nivers mg tablet 4-20 tablet by ity o f 00:00: mouth at [place] 00 bedtime. Medical Branch nortriptyli Yes [id number] 50mg Take 1 Univers ne 50 mg 4-20 capsule by ity o f capsule 00:00: mouth at [place] 00 bedtime. Medical Branch insulin 2021- No [id number] 30U inject 30 Univers aspart 4-20 04-22 Units ity of RAPID 00:00: 00:00 under the [place] (NOVOLOG 00 :00 skin 3 Medical U-100 (three) Branch INSULIN times ASPART) 100 daily with unit/mL meals. injection Insulin 2021- No [id number] 50U inject 50 Univers Glargine 4-19 06-19 Units ity of (LANTUS 00:00: 04:59 under the [facility] SOLOSTAR 00 :00 skin 2 Medical U-100 (two) Branch INSULIN) times 100 unit/mL daily for (3 mL) 60 days. injection famotidine Yes 20mg Take 20 mg U nivers 20 mg 1-24 by mouth ity of tablet 09:08: before [place] 44 meals. Medical Branch rosuvastati Yes Take by Un psaha n 5 mg CpSP 1-24 mouth. ity of 09:08: [place] 44 Medical Branch lisinopriL Yes [id number] 5mg Take 1 U nivers 5 mg tablet 1-24 tablet by ity of 00:00: mouth [place] 00 daily. [facility] Immunizations Ordered Filled Immunization Date Status Comments [place] Immunization Name Name SARS-COV-2 COVID-19 2020 Completed Unive rsity of MODERNA VACCINE 00:00:00 [facility] ical Branch SARS-COV-2 COVID-19 2020-07-27 Completed Unive rsity of MODERNA VACCINE 00:00:00 [facility] Procedures Procedure Date / Time Performed Performing Clinician Nico gómez [id number] 2019-12-05 00:00:00 [facility] Encounters Start End Encounter Admission Attending Care Care Encounter Source Date/Time Date/Time Type Type Clinicians Facility Department ID 2021-02-24 Inpatient [facility] [id number] [facility] 2021-10-09 2021-10-09 [facility] [id number] A-20 Univers 08:15:00 08:15:00 SANDRA [id number] [facility] 2021-10-09 2021-10-09 Outpatient Piter [facility] [id number] Univers 08:15:00 08:15:00 SANDRA [facility] 2021-09-06 2021-09-06 Telephone [facility] [place] [facility] [id number] Univers 00:00:00 00:00:00 [facility] [id number] it y of Hardik ALF[place] [id number] Mati as MARK?BLEA [id number] [place] x[place] [address] MEDICAL OFFICE BUILDING 2021-09-03 2021-09-03 Outpatient ROCHELLE JEFFERS [id number] [place]le 08:45:00 08:45:00 TYREE nieves 2021-05-31 2021-05-31 Outpatient Piter COLLADO [facility] [id number] Univers 18:00:00 18:00:00 VELIA [facility] 2020-08-13 2020-08-13 Inpatient [facility] [id number] [facility] 18:08:39 18:08:[address] [place], [place] [address]a l Hospita l 2020-06-14 2020-06-16 Inpatient [facility] ER [id number] [facility] 07:47:00 08:46:42 50 [facility] Hospita l 2020-04-18 2020-04-20 Inpatient [facility] ER [id number] [facility] 10:19:00 06:19:59 19 [facility] l 2020-01-22 2020-01-24 Inpatient [facility] ER [id number] [facility] 01:29:00 03:16:41 73 [facility]ospita l 2019-12-01 2020-01-03 Inpatient [facility] ER [id number] [facility] 00:13:00 17:12:43 80 [facility] l Hospita l 2019-12-19 2019-12-19 Outpatient KNOW, HC[facility] ADMI [id number] [facility] 23:24:00 23:24:00 DOES_NOT 13 [facility] l Hospita l 2019-10-15 2019-10-20 Inpatient SUPA William, HCARG TL2E [id number] [facility] 13:44:00 03:31:15 Wilmer 18 [facility] l Hospita l 2019-06-13 2019-06-21 Inpatient HC[facility] ER [id number] [facility] 17:11:00 07:49:09 06 [facility] l Hospita l 2019-06-01 2019-06-08 Inpatient [facility] ER [id number] [facility] 13:21:00 15:53:07 51 [facility] Hospita l 2019-05-22 2019-05-24 Inpatient [facility] ER [id number] [facility] 05:31:00 21:34:09 85 [facility] Hospita l 2019-05-20 2019-05-23 Inpatient [facility] ER [id number] [facility] 22:15:00 21:46:45 07 [facility]ospita l Results Test Description Test Time Test Comments Results Result Sour e Comments - CT ABD PELVIS 2020-08-13 W/CONT 19:35:[facility] 1980 Sex: M Name: RADHA CARPENTER FSED : 1980 Age/S: 39 / M [address] Unit #: [id number] [place]: [place] [address] Phys: Tony Noriega MD Acct: [id number] Dis Date: Status: PRE ER PHONE #: Exam Date: 08/13/20203 FAX #: Reason: ABD PAIN EXAMS: CPT CODE: [id number] CT ABD PELVIS W/CONT 84373 CT SCAN OF THE ABDOMEN AND PELVIS [...] M [address] Unit #: [id number] Loc: [place] [address] Phys: Tony Noriega MD Acct: [id number] Dis Date: Status: PRE ER PHONE #: Exam Date: 08/13/20201923 FAX #: Reason: ABD PAIN EXAMS: CPT CODE: [id number] CT ABD PELVIS W/CONT 56747 <Continued> CC: Galindo Chris MD Technologist:Jamil Cox CT (R) CTDI: 10.45 DLP: 602.65 Trnscb Date/Time: 08/13/2020 (1934) [email or web address] Orig Print D/T: S: 08/13/2020 (1937) PAGE [...] Suprapubic PainURINE SOURCE: CLEAN CATCH URINEBASIC METABOLIC [id number] 19:30:00 Test Item Value Reference Range Interpretation [...] RESULT BY1.21. [Automated mess age] The system Hello Agent generated this result transmitted ref erence range: >=60. Th e reference range was not used to int erpret this result as normal/abnormal . CREATININE (test code 0.91 mg/dl 0.70-1.30 N = CREAT) CALCIUM (test code = 9.6 mg/dL 8.5-10.1 N CA) LIVER [id number] 19:30:00 Test Item Value Reference Range Interpretation [...] 78 U/L 45-117 N code = ALKP) [id number] 19:30:00 Test Item Value Reference Range Interpretation Comments LIPASE (test code = LIP) 59 U/L 73-393 L [id number] 19:30:00 Test Item Value Reference Range Interpretation [...] >78 ------- [Automa ghazala message] The system Hello Agent generated this result tra nsmitted reference range : <=3.0. The reference range was not used to interpret th is result as normal/abnormal . DRUGS OF ABUSE [id number] 19:08:00 Test Item Value Reference Range Interpretation [...] code = WAS TESTE D AT THE [facility]) LISTED CUTOFFS DRUG CLASS INITIAL TEST LEVEL AMPHETAMI TED 1000 NG/MLBARBITURAT ES 200 NG/MLBENZODIAZE PIN ES 200 NG/MLCOCAINE METABOLITE 300 NG/MLMARIJUANA METABOLITE 5 0 NG/MLOPIATES 300 NG/MLPHENCYCLID INE 25 NG /ML UA RFLX MICROSCOPIC [id number] 19:05:00 Test Item Value Reference Range Interpretation [...] Suprapubic PainURINE SOURCE: CLEAN CATCH URINEBASIC METABOLIC [id number] 18:20:00 Test Item Value Reference Range Interpretation [...] IS -EVA N, MULTIPLY REPORT ED RESULT BY.. [Automated mess age] The system Hello Agent generated this result transmitted ref erence range: >=60. Th e reference range was not used to int erpret this result as normal/abnormal . CREATININE (test code 0.91 mg/dl 0.70-1.30 N = CREAT) CALCIUM (test code = 9.6 mg/dL 8.5-10.1 N CA) LIVER [id number] 18:20:00 Test Item Value Reference Range Interpretation [...] 78 U/L 45-117 N code = ALKP) [id number] 18:20:00 Test Item Value Reference Range Interpretation Comments LIPASE (test code = LIP) 59 U/L 73-393 L CBC W/AUTO [id number] 18:06:00 Test Item Value Reference Range Interpretation [...] (test NO NORMAL code = RBCM) LACTIC [id number] 18:05:00 Test Item Value Reference Range Interpretation Comments LACTIC ACID (test code = LACT) 2.0 mmol/l 0.4-2.0 N [id number] 17:57:00 Test Item Value Reference Range Interpretation Comments GLUBED (test code = GLUBED) 89 mg/dL 70-105 N [id number] 12:05:00 Test Item Value Reference Range Interpretation Comments GLUBED (test code = GLUBED) 314 mg/dL 70-105 H [id number] 12:04:00 Test Item Value Reference Range Interpretation Comments GLUBED (test code = GLUBED) 371 mg/dL 70-105 H LACTIC [id number] 11:41:00 Test Item Value Reference Range Interpretation Comments LACTIC ACID (test code = LACT) 1.5 mmol/l 0.4-2.0 N - CT LOWER EXTRM W/O C [id number] 11:30:00 [facility] 1980 Sex: M Name: RADHA CARPENTER [place] : 1980Age/S: 39 / M [address] Unit #: [id number] Loc: [place] [address] Phys: Tony Noriega MD Acct: [id number] Dis Date: Status: REG ER PHONE#: Exam Date: 06/14/2020 1017 FAX #: Reason:R FOOT SWELLING EXAMS: CPT CODE: [id number] [place] L[place]TR[place] W/[place] [address] - CT LOWER EXTRM W/O C RT [...] M [address] Unit #: [id number] Loc: [place] [address] Phys: Tony Noriega MD Acct: [id number] Dis Date: Status: REG ER PHONE #: Exam Date: 06/14/2020 1017 FAX #: Reason: R FOOT SWELLING EXAMS: CPT CODE: [id number] CT LOWER EXTRM W/[place] [address] <Continued> CC: Tony Noriega MD; Galindo Chris MD Technologist:Fede Caballero, (R) CT CTDI: 10.53 DLP: 350.96 Trnscb Date/Time: 06/14/2020 (1130) [email or web address] Orig Print D/T: S: 06/14/2020 (1133) PAGE 2 Signed ReportDRUGS OF ABUSE [id number] 10:53:00 Test Item Value Reference Range Interpretation [...] CRITICAL VALUE READ BACK BY DEIRDRE CORRALES 52 06/14/20. Rodriguez,[place] ia POSITIVE URINE DRUG SCREEN MOO T RESULTS ARE UNCONFIRMED.REF ERR ED CONFIRMATORY TESTING AVAILAB LE UPON PHYSICIANREQUES T. UR PHENCYCLIDINE NEGATIVE ng/ml NEGATIVE THE URINE SPECIMEN (PCP) (test code = WAS TESTE D AT THE [facility]) LISTED CUTOFFS DRUG CLASS INITIAL TEST LEVEL AMPHETAMI TED 1000 NG/MLBARBITURAT ES 200 NG/MLBENZODIAZE PIN ES 200 NG/MLCOCAINE METABOLITE 300 NG/MLMARIJUANA METABOLITE 5 0 NG/MLOPIATES 300 NG/MLPHENCYCLID INE 25 NG /ML - CT ABD PELVIS [id number] 09:45:00 [facility] : 1980 Sex: M Name: RADHA CARPENTER FSED : 1980Age/S: 39 / M [address] Unit #: [id number] Loc: [place] [address] Phys: Tony Noriega MD Acct: [id number] Dis Date: Status: PRE ER PHONE#: Exam Date: 06/14/2020 0918 FAX #: Reason:ABD PAIN EXAMS: CPT CODE: [id number] CT ABD PELVIS W/CONT 78001 CT abdomen and pelvis with contrast 06/14/2020 [...] M [address] Unit #: [id number] Loc: [place] [address] Phys: [facility]ga [id number] Dis Date: Status: PRE ER PHONE #: Exam Date: 06/14/2020 0920 FAX #: Reason: ABD PAIN EXAMS: CPT CODE: [id number] CT ABD PELVIS W/CONT 82654 <Continued> CC: Tony Noriega MD; Galindo Chris MD Technologist:Fede Caballero, RT (R) CT CTDI: 10.33 DLP: 549.38 Trnscb Date/Time: 06/14/2020 (45) [email or web address] Orig Print D/T: S: 06/14/2020 (0984) PAGE 2 Signed Report UA RFLX MICROSCOPIC [id number] 09:14:00 Test Item Value Reference Range Interpretation [...] Dysuria/FrequencyURINE SOURCE: CLEAN CATCH URINEUA RFLX MICROSCOPIC [id number] 09:12:00 Test Item Value Reference Range Interpretation [...] Dysuria/FrequencyURINE SOURCE: CLEAN CATCH URINE BASIC METABOLIC [id number] 08:48:00 Test Item Value Reference Range Interpretation [...] = 10.1 mg/dL 8.5-10.1 N CA) LIVER [id number] 08:48:00 Test Item Value Reference Range Interpretation [...] 84 U/L 45-117 N code = ALKP) [id number] 08:48:00 Test Item Value Reference Range Interpretation Comments LIPASE (test code = LIP) 78 U/L 73-393 N [id number] 08:48:00 Test Item Value Reference Range Interpretation Comments TROPONIN-I (test <0.017 ng/ml 0.00-0.045 N GUIDELINES: 0.08 - 0.09 code = TROPI) Indeterminate0 .10 Risk Stratifica tion Limit: Suggest sequential te sting0.60 - 1.50 AMI cut off: Myocardial Inju ry by WHO criteria BASIC METABOLIC [id number] 08:46:00 Test Item Value Reference Range Interpretation [...] = 10.1 mg/dL 8.5-10.1 N CA) LIVER [id number] 08:46:00 Test Item Value Reference Range Interpretation [...] 84 U/L 45-117 N code = ALKP) [id number] 08:46:00 Test Item Value Reference Range Interpretation Comments LIPASE (test code = LIP) U/L 73-393 [id number] 08:46:00 Test Item Value Reference Range Interpretation Comments TROPONIN-I (test code = TROPI) ng/ml 0.00-0.045 PROTHROMBIN [id number] 08:45:00 Test Item Value Reference Interpretation Comments Range PROTHROMBIN TIME 9.6 SECONDS 8.7-11.9 N THERAPEUTIC LEVEL: 1.5 TO PATIENT (test code 1.9 TIMES NORMAL RANGE = PTP) INTERNATIONAL 0.9 Recommended Th erapeutic NORMAL RATIO (test PT Ratios For Oral code = INR) AnticoagulantTh erapy. CONDITION INT'L N ORMALIZED PT RATIO------- --- Prophylaxis of venous thrombosis 2.0 - 3.0in [facility] medical or surgicalpati ents, treatment of venousthrombosi s, prevention of e mbolism. Prevention of r ecurrent embolism, 2.5 - 3.5or treatment of patients with mechanicalprost hetic heart valves. THROMBOPLASTIN TIME [id number] 08:45:00 Test Item Value Reference Range Interpretation Comments THROMBOPLASTIN TIME PARTIAL 25.4 seconds 22.8-34.4 N (test code = PTT) CBC W/AUTO [id number] 08:30:00 Test Item Value Reference Range Interpretation [...] (test NO NORMAL code = RBCM) LACTIC [id number] 08:29:00 Test Item Value Reference Range Interpretation Comments LACTIC ACID (test 2.5 mmol/l 0.4-2.0 H RESULTS C ALLED TO code = LACT) TONY Slade MD AT 0829 06/14/20. Berny Landaverde [id number] 07:55:00 Test Item Value Reference Range Interpretation Comments GLUBED (test code = GLUBED) 367 mg/dL 70-105 H URINALYSIS W REFLEX [id number] 11:06:00 Test Item Value Reference Range Interpretation [...] SPERMU) FEW /hpf NEGATIVE A BASIC METABOLIC [id number] 11:02:00 Test Item Value Reference Range Interpretation [...] = 10.7 mg/dL 8.5-10.1 H CA) LIVER [id number] 11:02:00 Test Item Value Reference Range Interpretation [...] 82 U/L 50-136 N code = ALKP) [id number] 11:02:00 Test Item Value Reference Range Interpretation Comments LIPASE (test code = LIP) 56 U/L 73-393 L [id number] 11:02:00 Test Item Value Reference Range Interpretation Comments TROPONIN-I (test <0.015 ng/ml 0.00-0.045 N GUIDELINES: 0.08 - 0.09 code = TROPI) Indeterminate0 .10 Risk Stratifica tion Limit: Suggest sequential te sting0.60 - 1.50 AMI cut off: Myocardial Inju ry by WHO criteria BASIC METABOLIC [id number] 11:01:00 Test Item Value Reference Range Interpretation [...] = 10.7 mg/dL 8.5-10.1 H CA) LIVER [id number] 11:01:00 Test Item Value Reference Range Interpretation [...] TOTAL (test U/L 50-136 code = ALKP) [id number] 11:01:00 Test Item Value Reference Range Interpretation Comments LIPASE (test code = LIP) 56 U/L 73-393 L [id number] 11:01:00 Test Item Value Reference Range Interpretation Comments TROPONIN-I (test code = TROPI) ng/ml 0.00-0.045 BASIC METABOLIC [id number] 11:00:00 Test Item Value Reference Range Interpretation [...] IS -EVA N, MULTIPLY REPORT ED RESULT BY121. CREATININE (test code 1.30 mg/dL 0.67-1.17 H = CREAT) CALCIUM (test code = 10.7 mg/dL 8.5-10.1 H CA) LIVER [id number] 11:00:00 Test Item Value Reference Range Interpretation [...] TOTAL (test U/L 50-136 code = ALKP) [id number] 11:00:00 Test Item Value Reference Range Interpretation Comments LIPASE (test code = LIP) 56 U/L 73-393 L [id number] 11:00:00 Test Item Value Reference Range Interpretation Comments TROPONIN-I (test code = TROPI) ng/ml 0.00-0.045 BASIC METABOLIC [id number] 10:59:00 Test Item Value Reference Range Interpretation [...] = 10.7 mg/dL 8.5-10.1 H CA) LIVER [id number] 10:59:00 Test Item Value Reference Range Interpretation [...] TOTAL (test U/L 50-136 code = ALKP) [id number] 10:59:00 Test Item Value Reference Range Interpretation Comments LIPASE (test code = LIP) 56 U/L 73-393 L [id number] 10:59:00 Test Item Value Reference Range Interpretation Comments TROPONIN-I (test code = TROPI) ng/ml 0.00-0.045 BASIC METABOLIC [id number] 10:58:00 Test Item Value Reference Range Interpretation [...] = CA) 10.7 mg/dL 8.5-10.1 H LIVER [id number] 10:58:00 Test Item Value Reference Range Interpretation [...] TOTAL (test U/L 50-136 code = ALKP) [id number] 10:58:00 Test Item Value Reference Range Interpretation Comments LIPASE (test code = LIP) 56 U/L 73-393 L [id number] 10:58:00 Test Item Value Reference Range Interpretation Comments TROPONIN-I (test code = TROPI) ng/ml 0.00-0.045 BASIC METABOLIC [id number] 10:57:00 Test Item Value Reference Range Interpretation [...] = CA) 10.7 mg/dL 8.5-10.1 H LIVER [id number] 10:57:00 Test Item Value Reference Range Interpretation [...] TOTAL (test U/L 50-136 code = ALKP) [id number] 10:57:00 Test Item Value Reference Range Interpretation Comments LIPASE (test code = LIP) 56 U/L 73-393 L [id number] 10:57:00 Test Item Value Reference Range Interpretation Comments TROPONIN-I (test code = TROPI) ng/ml 0.00-0.045 BASIC METABOLIC [id number] 10:53:00 Test Item Value Reference Range Interpretation [...] (test code = CA) mg/dL 8.5-10.1 LIVER [id number] 10:53:00 Test Item Value Reference Range Interpretation Comments TOTAL PROTEIN (test code = PROT) g/dl 6.4-8.2 ALBUMIN (test code = ALB) g/dl 3.4-5.0 BILIRUBIN TOTAL (test code = BILT) mg/dl 0.2-1.0 BILIRUBIN DIRECT (test code = BILD) mg/dl 0.0-0.4 SGOT/AST (test code = AST) U/L 15-37 SGPT/ALT (test code = ALT) U/L 12-78 ALKALINE PHOSPHATASE TOTAL (test code U/L 50-136 = ALKP) [id number] 10:53:00 Test Item Value Reference Range Interpretation Comments LIPASE (test code = LIP) U/L 73-393 [id number] 10:53:00 Test Item Value Reference Range Interpretation Comments TROPONIN-I (test code = TROPI) ng/ml 0.00-0.045 CBC W/AUTO [id number] 10:43:00 Test Item Value Reference Range Interpretation [...] code = 0.00 K/mm3 0.0-0.1 N NRBC#) [id number] 10:39:00 Test Item Value Reference Range Interpretation Comments GLUBED (test code = 228 mg/dL 70-105 H Performe d by certified GLUBED) sewage treatment plant operator at [facility] BASIC METABOLIC [id number] 02:26:00 Test Item Value Reference Range Interpretation [...] = 10.3 mg/dL 8.5-10.1 H CA) LIVER [id number] 02:26:00 Test Item Value Reference Range Interpretation [...] 79 U/L 45-117 N code = ALKP) [id number] 02:26:00 Test Item Value Reference Range Interpretation Comments LIPASE (test code = LIP) 138 U/L 73-393 N PROTHROMBIN [id number] 02:16:00 Test Item Value Reference Interpretation Comments [...] with mechanicalprost hetic heart valves. THROMBOPLASTIN TIME [id number] 02:16:00 Test Item Value Reference Range Interpretation Comments THROMBOPLASTIN TIME PARTIAL 24.8 seconds 22.8-34.4 N (test code = PTT) CBC W/AUTO [id number] 02:03:00 Test Item Value Reference Range Interpretation [...] (test NO NORMAL code = RBCM) LACTIC [id number] 02:02:00 Test Item Value Reference Range Interpretation Comments LACTIC ACID (test code = LACT) 2.0 mmol/l 0.4-2.0 N [id number] 20:16:00 Test Item Value Reference Range Interpretation Comments GLUBED (test code = 189 mg/dL 70-105 H Performe d by certified GLUBED) sewage treatment plant operator at [facility]2020-07-31 16:43:00 Test Item Value Reference Range Interpretation Comments GLUBED (test code = 197 mg/dL 70-105 H Performe d by certified GLUBED) sewage treatment plant operator at [facility]2020-07-31 11:20:00 Test Item Value Reference Range Interpretation Comments GLUBED (test code = 289 mg/dL 70-105 H Performe d by certified GLUBED) sewage treatment plant operator at [facility]2020-07-31 07:36:00 Test Item Value Reference Range Interpretation Comments GLUBED (test code = 154 mg/dL 70-105 H Performe d by certified GLUBED) sewage treatment plant operator at [facility]2020-07-30 20:42:00 Test Item Value Reference Range Interpretation Comments GLUBED (test code = 155 mg/dL 70-105 H Performe d by certified GLUBED) sewage treatment plant operator at [facility]2020-07-30 15:46:00 Test Item Value Reference Range Interpretation Comments GLUBED (test code = 201 mg/dL 70-105 H Performe d by certified GLUBED) sewage treatment plant operator at [facility]2020-07-30 11:32:00 Test Item Value Reference Range Interpretation Comments GLUBED (test code = 252 mg/dL 70-105 H Performe d by certified GLUBED) sewage treatment plant operator at [facility] [id number] 08:37:00 Test Item Value Reference Range Interpretation Comments GLUBED (test code = 225 mg/dL 70-105 H Performe d by certified GLUBED) sewage treatment plant operator at [facility] [id number] 04:12:00 Test Item Value Reference Range Interpretation Comments CREATININE (test code = CREAT) 1.00 mg/dL 0.67-1.17 N CBC W/AUTO [id number] 04:03:00 Test Item Value Reference Range Interpretation [...] code = 0.00 K/mm3 0.0-0.1 N NRBC#) [id number] 19:33:00 Test Item Value Reference Range Interpretation Comments GLUBED (test code = 236 mg/dL 70-105 H Performe d by certified GLUBED) sewage treatment plant operator at [facility]2020-07-29 16:33:00 Test Item Value Reference Range Interpretation Comments GLUBED (test code = 225 mg/dL 70-105 H Performe d by certified GLUBED) sewage treatment plant operator at [facility]2020-07-29 11:29:00 Test Item Value Reference Range Interpretation Comments GLUBED (test code = 298 mg/dL 70-105 H Performe d by certified GLUBED) sewage treatment plant operator at [facility]2020-07-29 08:00:00 Test Item Value Reference Range Interpretation Comments GLUBED (test code = 279 mg/dL 70-105 H Performe d by certified GLUBED) sewage treatment plant operator at [facility]2020-07-28 21:36:00 Test Item Value Reference Range Interpretation Comments GLUBED (test code = 243 mg/dL 70-105 H Performe d by certified GLUBED) sewage treatment plant operator at [facility]2020-07-28 16:54:00 Test Item Value Reference Range Interpretation Comments GLUBED (test code = 227 mg/dL 70-105 H Performe d by certified GLUBED) sewage treatment plant operator at [facility]2020-07-28 12:06:00 Test Item Value Reference Range Interpretation Comments GLUBED (test code = 292 mg/dL 70-105 H Performe d by certified GLUBED) sewage treatment plant operator at [facility]2020-07-28 07:21:00 Test Item Value Reference Range Interpretation Comments GLUBED (test code = 341 mg/dL 70-105 H Performe d by certified GLUBED) sewage treatment plant operator at [facility]2020-07-27 23:10:00 Test Item Value Reference Range Interpretation Comments GLUBED (test code = 318 mg/dL 70-105 H Performe d by certified GLUBED) sewage treatment plant operator at [facility]2020-07-27 17:57:00 Test Item Value Reference Range Interpretation Comments GLUBED (test code = 317 mg/dL 70-105 H Performe d by certified GLUBED) sewage treatment plant operator at [facility]2020-07-27 11:45:00 Test Item Value Reference Range Interpretation Comments GLUBED (test code = 318 mg/dL 70-105 H Performe d by certified GLUBED) sewage treatment plant operator at [facility]2020-07-27 07:22:00 Test Item Value Reference Range Interpretation Comments GLUBED (test code = 305 mg/dL 70-105 H Performe d by certified GLUBED) sewage treatment plant operator at [facility]2020-07-26 20:16:00 Test Item Value Reference Range Interpretation Comments GLUBED (test code = 202 mg/dL 70-105 H Performe d by certified GLUBED) sewage treatment plant operator at [facility]2020-07-26 16:57:00 Test Item Value Reference Range Interpretation Comments GLUBED (test code = 298 mg/dL 70-105 H Performe d by certified GLUBED) sewage treatment plant operator at [facility]2020-07-26 10:12:00 Test Item Value Reference Range Interpretation Comments GLUBED (test code = 396 mg/dL 70-105 H Performe d by certified GLUBED) sewage treatment plant operator at [facility]2020-07-25 20:52:00 Test Item Value Reference Range Interpretation Comments GLUBED (test code = 276 mg/dL 70-105 H Performe d by certified GLUBED) sewage treatment plant operator at [facility]2020-07-25 16:20:00 Test Item Value Reference Range Interpretation Comments GLUBED (test code = 230 mg/dL 70-105 H Performe d by certified GLUBED) sewage treatment plant operator at [facility]2020-07-25 11:50:00 Test Item Value Reference Range Interpretation Comments GLUBED (test code = 299 mg/dL 70-105 H Performe d by certified GLUBED) sewage treatment plant operator at [facility]2020-07-25 07:26:00 Test Item Value Reference Range Interpretation Comments GLUBED (test code = 278 mg/dL 70-105 H Performe d by certified GLUBED) sewage treatment plant operator at [facility]2020-07-24 20:44:00 Test Item Value Reference Range Interpretation Comments GLUBED (test code = 196 mg/dL 70-105 H Performe d by certified GLUBED) sewage treatment plant operator at [facility]2020-07-24 16:17:00 Test Item Value Reference Range Interpretation Comments GLUBED (test code = 274 mg/dL 70-105 H Performe d by certified GLUBED) sewage treatment plant operator at [facility]2020-07-24 11:38:00 Test Item Value Reference Range Interpretation Comments GLUBED (test code = 280 mg/dL 70-105 H Performe d by certified GLUBED) sewage treatment plant operator at [facility]2020-07-24 07:37:00 Test Item Value Reference Range Interpretation Comments GLUBED (test code = 235 mg/dL 70-105 H Performe d by certified GLUBED) sewage treatment plant operator at [facility]2020-07-23 22:34:00 Test Item Value Reference Range Interpretation Comments GLUBED (test code = 217 mg/dL 70-105 H Performe d by certified GLUBED) sewage treatment plant operator at [facility]2020-07-23 18:05:00 Test Item Value Reference Range Interpretation Comments GLUBED (test code = 264 mg/dL 70-105 H Performe d by certified GLUBED) sewage treatment plant operator at [facility]2020-07-23 11:09:00 Test Item Value Reference Range Interpretation Comments GLUBED (test code = 273 mg/dL 70-105 H Performe d by certified GLUBED) sewage treatment plant operator at [facility] COMPREHENSIVE METABOLIC [id number] 08:14:00 Test Item Value Reference Range Interpretation [...] TOTAL (test code = ALKP) COMPREHENSIVE METABOLIC [id number] 08:13:00 Test Item Value Reference Range Interpretation [...] TOTAL (test code = ALKP) COMPREHENSIVE METABOLIC [id number] 08:12:00 Test Item Value Reference Range Interpretation [...] TOTAL (test code = ALKP) COMPREHENSIVE METABOLIC [id number] 08:11:00 Test Item Value Reference Range Interpretation [...] TOTAL (test code = ALKP) COMPREHENSIVE METABOLIC [id number] 08:09:00 Test Item Value Reference Range Interpretation [...] U/L 50-136 code = ALKP) COMPREHENSIVE METABOLIC [id number] 08:08:00 Test Item Value Reference Range Interpretation [...] U/L 50-136 code = ALKP) COMPREHENSIVE METABOLIC [id number] 08:03:00 Test Item Value Reference Range Interpretation [...] U/L 50-136 code = ALKP) CBC W/AUTO [id number] 07:55:00 Test Item Value Reference Range Interpretation [...] code = 0.00 K/mm3 0.0-0.1 N NRBC#) [id number] 19:39:00 Test Item Value Reference Range Interpretation Comments GLUBED (test code = 239 mg/dL 70-105 H Performe d by certified GLUBED) sewage treatment plant operator at [facility] CARDIO C REACTIVE PROTEIN [id number] 16:49:00 Test Item Value Reference Range Interpretation Comments CARDIO C REACTIVE 54.80 0.0-3.0 H CCRP MG/L RISK PROTEIN HS (test code ACCORD ING TO AHA/CDC = CCRP) GUIDELINES----- ---- ---------<1.0 LOW CARDIOVASCU LAR RISK1.0 - 3.0 [address] RAGE CARDIOVASCULAR RISK3.1 - 10.0 HIGH CARDIOVASCULAR RISK>10.0 PERSISTE NT ELEVATIONS MAY REPRESENT NON-CARDIOVASCU LAR INFLAMMATION SED [id number] 16:47:00 Test Item Value Reference Range Interpretation Comments SED RATE (test code = SEDW) 134 mm/hr 0-15 H [id number] 16:11:00 Test Item Value Reference Range Interpretation Comments GLUBED (test code = 162 mg/dL 70-105 H Performe d by certified GLUBED) sewage treatment plant operator at [facility]2020-07-22 11:20:00 Test Item Value Reference Range Interpretation Comments GLUBED (test code = 276 mg/dL 70-105 H Performe d by certified GLUBED) sewage treatment plant operator at [facility]2020-07-22 07:12:00 Test Item Value Reference Range Interpretation Comments GLUBED (test code = 238 mg/dL 70-105 H Performe d by certified GLUBED) sewage treatment plant operator at [facility]2020-07-21 21:21:00 Test Item Value Reference Range Interpretation Comments GLUBED (test code = 212 mg/dL 70-105 H Performe d by certified GLUBED) sewage treatment plant operator at [facility]2020-07-21 16:44:00 Test Item Value Reference Range Interpretation Comments GLUBED (test code = 236 mg/dL 70-105 H Performe d by certified GLUBED) sewage treatment plant operator at [facility] [id number] 12:01:00 RUN DATE: 12/06/19 [facility] LAB LIVE PAGE 1 RUN TIME: 1201 Specimen Inquiry RUN USER: INTERFACE [id number] AGE/SX: 39/M ROOM: [facility] RE12/01/19ENRIQUE DR: Joe Wolf MD : 84 BED: A DIS: STATUS: ADM IN TLOC: SPEC #: [id number] RECD: 12/05/19 STATUS: DINORA REAmrik #: [id number] JOEL: 12/05/19 DR: Simone Navarro ENTERED: 12/05/19 SP TYPE: [...] cassette. COPIES TO: Rosalina Morales DPM [address] [place] [address] Simone Cabrera [address] [place] [address] [id number] Ld Rutherford MD [address] [place], [place] [id number] Galindo Chris MD [address], [place] [id number] PROCEDURES: SURG/PATH GROSS (12/05/19) TISSUES: FOOT - RIGHT FOOT TISSUE CONTINUED ON NEXT PAGE RUN DATE: 12/06/19 [facility] LIVE PAGE 2 RUN TIME: 1201 Specimen Inquiry RUN USER: INTERFACE ------- -----SPEC #: [id number] PATIENT: RADHA CARPENTER #[id number] (Continued) Surgery information Surgery date 12/05/19 Surgeon(s): SIMONE BLANK Pre-Op Dx: RIGHT FOOT ULCER Post-Op Dx: SAME Signed SIGNATURE ON FILE Simone Suarez 12/06/19 1201 END OF REPORT [id number] 11:54:00 Test Item Value Reference Range Interpretation Comments GLUBED (test code = 300 mg/dL 70-105 H Performe d by certified GLUBED) sewage treatment plant operator at [facility] BASIC METABOLIC [id number] 11:28:00 Test Item Value Reference Range Interpretation [...] 8.6 mg/dL 8.5-10.1 N CA) BASIC METABOLIC [id number] 11:25:00 Test Item Value Reference Range Interpretation [...] CA) 8.6 mg/dL 8.5-10.1 N BASIC METABOLIC [id number] 11:24:00 Test Item Value Reference Range Interpretation [...] CA) 8.6 mg/dL 8.5-10.1 N CBC W/AUTO [id number] 09:58:00 Test Item Value Reference Range Interpretation [...] code = INCREASED ADEQUATE PLTEST) BASIC METABOLIC [id number] 08:57:00 Test Item Value Reference Range Interpretation [...] code = CA) mg/dL 8.5-10.1 CBC W/AUTO [id number] 08:42:00 Test Item Value Reference Range Interpretation [...] code = 0.00 K/mm3 0.0-0.1 N NRBC#) [id number] 07:57:00 Test Item Value Reference Range Interpretation Comments GLUBED (test code = 330 mg/dL 70-105 H Performe d by certified GLUBED) sewage treatment plant operator at [facility]2020-07-20 22:44:00 Test Item Value Reference Range Interpretation Comments GLUBED (test code = 284 mg/dL 70-105 H Performe d by certified GLUBED) sewage treatment plant operator at [facility]2020-07-20 18:22:00 Test Item Value Reference Range Interpretation Comments GLUBED (test code = 269 mg/dL 70-105 H Performe d by certified GLUBED) sewage treatment plant operator at [facility]2020-07-20 13:13:00 Test Item Value Reference Range Interpretation Comments GLUBED (test code = 202 mg/dL 70-105 H Performe d by certified GLUBED) sewage treatment plant operator at [facility] BASIC METABOLIC [id number] 09:04:00 Test Item Value Reference Range Interpretation [...] 9.2 mg/dL 8.5-10.1 N CA) BASIC METABOLIC [id number] 09:03:00 Test Item Value Reference Range Interpretation [...] CA) 9.2 mg/dL 8.5-10.1 N BASIC METABOLIC [id number] 09:01:00 Test Item Value Reference Range Interpretation [...] = CA) 9.2 mg/dL 8.5-10.1 N PROTHROMBIN [id number] 09:01:00 Test Item Value Reference Interpretation Comments Range PROTHROMBIN TIME 9.9 SECONDS 8.7-12.1 N THERAPEUTIC LEVEL: 1.5 TO PATIENT (test code 1.9 TIMES NORMAL RANGE = PTP) INTERNATIONAL 0.9 Recommended Th erapeutic NORMAL RATIO (test PT Ratios For Oral code = INR) AnticoagulantTh erapy. CONDITION INT'L N ORMALIZED PT RATIO------- --- Prophylaxis of venous thrombosis 2.0 - 3.0in [facility] medical or surgicalpati ents, treatment of venousthrombosi s, prevention of e mbolism. Prevention of r ecurrent embolism, 2.5 - 3.5or treatment of patients with mechanicalprost hetic heart valves. LAB ANTICOAGULANT QUERY UNKNOWNTHROMBOPLASTIN TIME [id number] 09:01:00 Test Item Value Reference Range Interpretation Comments THROMBOPLASTIN TIME PARTIAL 29.3 seconds 22.8-34.4 N (test code = PTT) LAB ANTICOAGULANT QUERY UNKNOWNBASIC METABOLIC [id number] 08:46:00 Test Item Value Reference Range Interpretation [...] code = CA) mg/dL 8.5-10.1 CBC W/AUTO [id number] 08:33:00 Test Item Value Reference Range Interpretation [...] code = 0.00 K/mm3 0.0-0.1 N NRBC#) [id number] 08:03:00 Test Item Value Reference Range Interpretation Comments GLUBED (test code = 240 mg/dL 70-105 H Performe d by certified GLUBED) sewage treatment plant operator at [facility] [id number] 21:40:00 Test Item Value Reference Range Interpretation Comments GLUBED (test code = 208 mg/dL 70-105 H Performe d by certified GLUBED) sewage treatment plant operator at [facility] [id number] 17:39:00 Test Item Value Reference Range Interpretation Comments GLUBED (test code = 250 mg/dL 70-105 H Performe d by certified GLUBED) sewage treatment plant operator at [facility] COVID 19 Asymptomatic IH [id number] 17:18:00 Test Item Value Reference Interpretation Comments Range COVID 19 Presumed NEGATIVE Asymptomatic IH AG Negative SEBASTIEN COV ID-19 (test code = COVNONPUIAG) Results are for the identification of SYJH-JvO-6uzgwy ocapsid protein antigen . Antigen is generallydet [...] nd Drug Administration' s Emergency Use Authorization. [id number] 12:09:00 Test Item Value Reference Range Interpretation Comments GLUBED (test code = 191 mg/dL 70-105 H Performe d by certified GLUBED) sewage treatment plant operator at [facility] [id number] 09:54:00 Test Item Value Reference Range Interpretation Comments GLYCOSYLATED 11.3 % <5.7 H SAMPSON GGESTED HEMOGLOBIN (HA1C) DIAGNOSIS (test code = GLYHGB) INTERPR ETATION -------- Normal: < 5.7% Prediabetes: 5 .7 - 6.4% Diabetic: >/ = 6.5%* DUE TO METHOD R EVISION, REFERENCE RANGE HAS BEEN UPDATED * ESTIMATED AVERAGE 278 MG/DL <126 GLUCOSE (test code = EAG) BASIC METABOLIC [id number] 09:16:00 Test Item Value Reference Range Interpretation [...] 9.5 mg/dL 8.5-10.1 N CA) CBC W/AUTO [id number] 08:55:00 Test Item Value Reference Range Interpretation [...] code = 0.00 K/mm3 0.0-0.1 N NRBC#) [id number] 08:21:00 Test Item Value Reference Range Interpretation Comments GLUBED (test code = 228 mg/dL 70-105 H Performe d by certified GLUBED) sewage treatment plant operator at [facility] [id number] 21:14:00 Test Item Value Reference Range Interpretation Comments GLUBED (test code = 178 mg/dL 70-105 H Performe d by certified GLUBED) sewage treatment plant operator at [facility]2020-07-18 17:11:00 Test Item Value Reference Range Interpretation Comments GLUBED (test code = 149 mg/dL 70-105 H Performe d by certified GLUBED) sewage treatment plant operator at [facility] - NM BONE 3 [id number] 15:01:00 FAX: Galindo Abdullahi MD [phone] [place]: [facility] St: ADM Name: RADHA CARPENTER [facility] : 1980 Age/S: 39/M [address] [facility] Unit#: [id number] Loc: [place] [address] Phys: Joe Wolf MD Acct: [id number] Dis Date: Status: ADM IN PHONE #: [phone] Exam Date: 12/02/2019 1448 FAX #: [phone] Reason: DIABETIC FOOT/UNABLE TO HAVE MRI EXAMS: CPT CODE: [id number] NM BONE 3 PHASE 23637 RADIOPHARMACEUTICAL: 20 mCi Tc-99m -MDP IV Correlated [...] M.D. CC: Galindo Chris MD Technologist: Wilmer Arboleda,BSNMT,OIL OPERATOR,RTR Trnscrd Date/Time/By: 12/03/2019 (1505) : By: [email or web address] Orig Print D/T: S: 12/03/2019 (150) PAGE 1 Signed [id number] 12:21:00 Test Item Value Reference Range Interpretation Comments GLUBED (test code = 149 mg/dL 70-105 H Performe d by certified GLUBED) sewage treatment plant operator at [facility] [id number] 08:44:00 Test Item Value Reference Range Interpretation Comments GLUBED (test code = 191 mg/dL 70-105 H Performe d by certified GLUBED) sewage treatment plant operator at [facility] [id number] 21:21:00 Test Item Value Reference Range Interpretation Comments GLUBED (test code = 156 mg/dL 70-105 H Performe d by certified GLUBED) sewage treatment plant operator at [facility] [id number] 16:57:00 Test Item Value Reference Range Interpretation Comments GLUBED (test code = 143 mg/dL 70-105 H Performe d by certified GLUBED) sewage treatment plant operator at [facility] [id number] 11:37:00 Test Item Value Reference Range Interpretation Comments GLUBED (test code = 152 mg/dL 70-105 H Performe d by certified GLUBED) sewage treatment plant operator at [facility] BASIC METABOLIC [id number] 08:08:00 Test Item Value Reference Range Interpretation [...] REPORT ED RESULT BY1.. CREATININE (test code 0.60 mg/dL 0.67-1.17 L = CREAT) CALCIUM (test code = 8.5 mg/dL 8.5-10.1 N CA) BASIC METABOLIC [id number] 08:04:00 Test Item Value Reference Range Interpretation [...] CA) 8.5 mg/dL 8.5-10.1 N BASIC METABOLIC [id number] 08:03:00 Test Item Value Reference Range Interpretation [...] code = CA) mg/dL 8.5-10.1 CBC W/AUTO [id number] 07:56:00 Test Item Value Reference Range Interpretation [...] code = 0.00 K/mm3 0.0-0.1 N NRBC#) [id number] 07:15:00 Test Item Value Reference Range Interpretation Comments GLUBED (test code = 125 mg/dL 70-105 H Performe d by certified GLUBED) sewage treatment plant operator at [facility] [id number] 21:13:00 Test Item Value Reference Range Interpretation Comments GLUBED (test code = 178 mg/dL 70-105 H Performe d by certified GLUBED) sewage treatment plant operator at [facility] [id number] 17:49:00 Test Item Value Reference Range Interpretation Comments GLYCOSYLATED 11.5 % <5.7 H SAMPSON GGESTED HEMOGLOBIN (HA1C) DIAGNOSIS (test code = GLYHGB) INTERPR ETATION -------- Normal: < 5.7% Prediabetes: 5 .7 - 6.4% Diabetic: >/ = 6.5%* DUE TO METHOD R EVISION, REFERENCE RANGE HAS BEEN UPDATED * ESTIMATED AVERAGE 283 MG/DL <126 GLUCOSE (test code = EAG) [id number] 16:39:00 Test Item Value Reference Range Interpretation Comments GLUBED (test code = 91 mg/dL 70-105 N Performe d by certified GLUBED) sewage treatment plant operator at [facility] BASIC METABOLIC [id number] 05:21:00 Test Item Value Reference Range Interpretation [...] = 10.2 mg/dL 8.5-10.1 H CA) LIVER [id number] 05:21:00 Test Item Value Reference Range Interpretation [...] 87 U/L 45-117 N code = ALKP) [id number] 05:21:00 Test Item Value Reference Range Interpretation [...] d/or septic shock. CARDIO C REACTIVE PROTEIN [id number] 05:21:00 Test Item Value Reference Range Interpretation Comments CARDIO C REACTIVE 88.80 0.0-3.0 H CCRP MG/L RISK PROTEIN HS (test code ACCORD ING TO AHA/CDC = CCRP) GUIDELINES----- ---- ---------<1.0 LOW CARDIOVASCU LAR RISK1.0 - 3.[address] RAGE CARDIOVASCULAR RISK3.1 - 10.0 HIGH CARDIOVASCULAR RISK>10.0 PERSISTE NT ELEVATIONS MAY REPRESENT NON-CARDIOVASCU LAR INFLAMMATION CBC W/AUTO [id number] 03:55:00 Test Item Value Reference Range Interpretation [...] (test NO NORMAL code = RBCM) SED [id number] 03:55:00 Test Item Value Reference Range Interpretation Comments SED RATE (test code = SEDW) 26 mm/hr 0-15 H BASIC METABOLIC [id number] 03:39:00 Test Item Value Reference Range Interpretation [...] = 10.2 mg/dL 8.5-10.1 H CA) LIVER [id number] 03:39:00 Test Item Value Reference Range Interpretation [...] 87 U/L 45-117 N code = ALKP) [id number] 03:39:00 Test Item Value Reference Range Interpretation Comments LIPASE (test code = LIP) 74 U/L 73-393 N CARDIO C REACTIVE PROTEIN [id number] 03:39:00 Test Item Value Reference Range Interpretation Comments CARDIO C REACTIVE 88.80 0.0-3.0 H CCRP MG/L RISK PROTEIN HS (test code ACCORD ING TO AHA/CDC = CCRP) GUIDELINES----- ---- ---------<1.0 LOW CARDIOVASCU LAR RISK1.0 - 3.[address] RAGE CARDIOVASCULAR RISK3.1 - 10.0 HIGH CARDIOVASCULAR RISK>10.0 PERSISTE NT ELEVATIONS MAY REPRESENT NON-CARDIOVASCU LAR INFLAMMATION - XR FOOT 3+ V [id number] 03:11:00 FAX: Ld Rutherford [place]: [facility] [address]: PRE FAX: Galindo Abdullahi MD [phone] Name: RADHA CARPENTER [place] [facility] : 1980 Age/S: 39/M [address] Unit #: [id number] Loc: [place] [address] Phys: Ld Rutherford MD Acct: [id number] Dis Date: Status: PRE ER PHONE #: Exam Date: 12/01/2019 0247 FAX #: Reason: diabetic foot wound, pain EXAMS: CPT CODE: [id number] XR FOOT 3+ [place] RT [address]390 EXAM: - XR FOOT 3+ V RT [...] (R) Trnscrd Date/Time/By: 12/01/2019 (310) : By: [email or web address] Orig Print D/T: S: 12/01/2019 (313) PAGE 1 Signed ReportBASIC METABOLIC [id number] 02:59:00 Test Item Value Reference Range Interpretation [...] = 10.2 mg/dL 8.5-10.1 H CA) LIVER [id number] 02:59:00 Test Item Value Reference Range Interpretation [...] 87 U/L 45-117 N code = ALKP) [id number] 02:59:00 Test Item Value Reference Range Interpretation Comments LIPASE (test code = LIP) 74 U/L 73-393 N CARDIO C REACTIVE PROTEIN [id number] 02:59:00 Test Item Value Reference Range Interpretation Comments CARDIO C REACTIVE PROTEIN HS (test code 0.0-3.0 = CCRP) CBC W/AUTO [id number] 02:46:00 Test Item Value Reference Range Interpretation [...] (test NO NORMAL code = RBCM) SED [id number] 02:46:00 Test Item Value Reference Range Interpretation Comments SED RATE (test code = SEDW) mm/hr 0-15 [id number] 11:14:00 Test Item Value Reference Range Interpretation Comments GLUBED (test code = 223 mg/dL 70-105 H Performe d by certified GLUBED) sewage treatment plant operator at [facility] [facility] [id number] 06:41:00 Test Item Value Reference Range Interpretation Comments GLUBED (test code = 281 mg/dL 70-105 H Performe d by certified GLUBED) sewage treatment plant operator at [facility] COMPREHENSIVE METABOLIC [id number] 04:09:00 Test Item Value Reference Range Interpretation [...] IS -EVA N, MULTIPLY REPORT ED RESULT BY.. CREATININE (test code = 0.80 mg/dL 0.67-1.17 [...] TOTAL (test code = ALKP) CBC W/AUTO [id number] 03:32:00 Test Item Value Reference Range Interpretation [...] code = 0.00 K/mm3 0.0-0.1 N NRBC#) [id number] 20:11:00 Test Item Value Reference Range Interpretation Comments GLUBED (test code = 123 mg/dL 70-105 H Performe d by certified GLUBED) sewage treatment plant operator at [facility]2020-05-31 15:45:00 Test Item Value Reference Range Interpretation Comments GLUBED (test code = 156 mg/dL 70-105 H Performe d by certified GLUBED) sewage treatment plant operator at [facility]2020-05-31 11:33:00 Test Item Value Reference Range Interpretation Comments GLUBED (test code = 203 mg/dL 70-105 H Performe d by certified GLUBED) sewage treatment plant operator at [facility]2020-05-31 07:00:00 Test Item Value Reference Range Interpretation Comments GLUBED (test code = 219 mg/dL 70-105 H Performe d by certified GLUBED) sewage treatment plant operator at [facility]2020-05-30 22:19:00 Test Item Value Reference Range Interpretation Comments GLUBED (test code = 168 mg/dL 70-105 H Performe d by certified GLUBED) sewage treatment plant operator at [facility]2020-05-30 17:28:00 Test Item Value Reference Range Interpretation Comments GLUBED (test code = 115 mg/dL 70-105 H Performe d by certified GLUBED) sewage treatment plant operator at [facility] COMPREHENSIVE METABOLIC [id number] 12:30:00 Test Item Value Reference Range Interpretation [...] or = 6 0 ml/min/1.73M2IF PATIENT IS -VEA N, MULTIPLY REPORT ED RESULT BY1.21. 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 plant operator at [facility]2020-05-30 07:03:00 Test Item Value Reference Range Interpretation Comments GLUBED (test code = 221 mg/dL 70-105 H Performe d by certified GLUBED) sewage treatment plant operator at [facility]2020-05-29 20:59:00 Test Item Value Reference Range Interpretation Comments GLUBED (test code = 176 mg/dL 70-105 H Performe d by certified GLUBED) sewage treatment plant operator at [facility]2020-05-29 16:00:00 Test Item Value Reference Range Interpretation Comments GLUBED (test code = 204 mg/dL 70-105 H Performe d by certified GLUBED) sewage treatment plant operator at [facility] BASIC METABOLIC [id number] 13:27:00 Test Item Value Reference Range Interpretation [...] 9.0 mg/dL 8.5-10.1 N CA) BASIC METABOLIC [id number] 13:26:00 Test Item Value Reference Range Interpretation [...] code = CA) 9.0 mg/dL 8.5-10.1 N [id number] 13:04:00 Test Item Value Reference Range Interpretation Comments GLUBED (test code = 241 mg/dL 70-105 H Performe d by certified GLUBED) sewage treatment plant operator at [facility] [id number] 06:22:00 Test Item Value Reference Range Interpretation Comments GLUBED (test code = 218 mg/dL 70-105 H Performe d by certified GLUBED) sewage treatment plant operator at [facility] [id number] 20:52:00 Test Item Value Reference Range Interpretation Comments GLUBED (test code = 189 mg/dL 70-105 H Performe d by certified GLUBED) sewage treatment plant operator at [facility] [id number] 16:02:00 Test Item Value Reference Range Interpretation Comments GLUBED (test code = 253 mg/dL 70-105 H Performe d by certified GLUBED) sewage treatment plant operator at [facility] [id number] 13:35:00 Test Item Value Reference Range Interpretation Comments GLYCOSYLATED 13.3 % <5.7 H SAMPSON GGESTED HEMOGLOBIN (HA1C) DIAGNOSIS (test code = GLYHGB) INTERPR ETATION -------- Normal: < 5.7% Prediabetes: 5 .7 - 6.4% Diabetic: >/ = 6.5%* DUE TO METHOD R EVISION, REFERENCE RANGE HAS BEEN UPDATED * ESTIMATED AVERAGE 335 MG/DL <126 GLUCOSE (test code = EAG) [id number] 13:13:00 Test Item Value Reference Range Interpretation Comments GLUBED (test code = 245 mg/dL 70-105 H Performe d by certified GLUBED) sewage treatment plant operator at [facility] [id number] 08:01:00 Test Item Value Reference Range Interpretation Comments GLUBED (test code = 352 mg/dL 70-105 H Performe d by certified GLUBED) sewage treatment plant operator at [facility] UA RFLX MICROSCOPIC [id number] 07:45:00 Test Item Value Reference Range Interpretation Comments UA COLOR (test code = LT YELLOW YELLOW COLU) UA APPEARANCE (test CLEAR CLEAR code = APPU) UA GLUCOSE DIPSTICK >1000 mg/dl NORMAL URGENT V ALUE---- (test code = DGLUU) RESULT C CHRISTINO AND READ BACK Martin ARCOS [id number] 10/12/ 0. Tan,Ebony A UA BILIRUBIN DIPSTICK NEGATIVE [...] Dysuria/FrequencyURINE SOURCE: CLEAN CATCH URINE BASIC METABOLIC [id number] 06:25:00 Test Item Value Reference Range Interpretation [...] = 10.1 mg/dL 8.5-10.1 N CA) LIVER [id number] 06:25:00 Test Item Value Reference Range Interpretation [...] 69 U/L 50-136 N code = ALKP) [id number] 06:25:00 Test Item Value Reference Range Interpretation Comments LIPASE (test code = LIP) 68 U/L 73-393 L [id number] 06:25:00 Test Item Value Reference Range Interpretation Comments TROPONIN-I (test <0.015 ng/ml 0.00-0.045 N GUIDELINES: 0.08 - 0.09 code = TROPI) Indeterminate0 .10 Risk Stratifica tion Limit: Suggest sequential te sting0.60 - 1.50 AMI cut off: Myocardial Inju ry by WHO criteria CBC W/AUTO [id number] 06:04:00 Test Item Value Reference Range Interpretation [...] 0.00 K/mm3 0.0-0.1 N NRBC#) UR PORPHYRINS [id number] 10:50:00 Test Item Value Reference Range Interpretation Comments UR PORPHYRINS QUANT (test SENT TO REF LAB code = PORUQT) UT=2575 [id number] 08:47:00 Test Item Value Reference Range Interpretation Comments GLUBED (test code = 220 mg/dL 70-105 H Performe d by certified GLUBED) sewage treatment plant operator at [facility] BASIC METABOLIC [id number] 07:05:00 Test Item Value Reference Range Interpretation [...] code = 8.0 mg/dL 8.5-10.1 L CA) [id number] 07:05:00 Test Item Value Reference Range Interpretation Comments PHOSPHOROUS (test code = PHOS) 1.8 mg/dL 2.5-4.9 L CBC W/AUTO [id number] 06:11:00 Test Item Value Reference Range Interpretation [...] code = 0.00 K/mm3 0.0-0.1 N NRBC#) [id number] 20:43:00 Test Item Value Reference Range Interpretation Comments GLUBED (test code = 117 mg/dL 70-105 H Performe d by certified GLUBED) sewage treatment plant operator at [facility]2020-01-30 16:49:00 Test Item Value Reference Range Interpretation Comments GLUBED (test code = 163 mg/dL 70-105 H Performe d by certified GLUBED) sewage treatment plant operator at [facility]2020-01-30 11:36:00 Test Item Value Reference Range Interpretation Comments GLUBED (test code = 171 mg/dL 70-105 H Performe d by certified GLUBED) sewage treatment plant operator at [facility]2020-01-30 07:20:00 Test Item Value Reference Range Interpretation Comments GLUBED (test code = 198 mg/dL 70-105 H Performe d by certified GLUBED) sewage treatment plant operator at [facility] BASIC METABOLIC [id number] 07:20:00 Test Item Value Reference Range Interpretation [...] code = 8.6 mg/dL 8.5-10.1 N CA) [id number] 07:20:00 Test Item Value Reference Range Interpretation Comments PHOSPHOROUS (test code = PHOS) 2.2 mg/dL 2.5-4.9 L CBC W/AUTO [id number] 06:35:00 Test Item Value Reference Range Interpretation [...] code = 0.00 K/mm3 0.0-0.1 N NRBC#) [id number] 21:16:00 Test Item Value Reference Range Interpretation Comments GLUBED (test code = 123 mg/dL 70-105 H Performe d by certified GLUBED) sewage treatment plant operator at [facility] [id number] 18:31:00 Test Item Value Reference Range Interpretation Comments GLUBED (test code = 171 mg/dL 70-105 H Performe d by certified GLUBED) sewage treatment plant operator at [facility] - CT ABD PELVIS [id number] 16:22:00 Name: RADHA CARPENTER [facility] : 1980 Age/S: 38 / M [address] Unit #: [id number] Loc: [place] [address] Phys: Josh Norwood Acct: [id number] Dis Date: Status: ADM IN PHONE #: [phone] Exam Date: 06/15/2019 1558 FAX #: [phone] Reason: ABD PAIN EXAMS: CPTCODE: [id number] CT ABD PELVIS W/CONT 87315 EXAMINATION: - CT ABD PELVIS W/CONT. LOCATION: [...] 1 Signed Report (CONTINUED) Name: RADHA CARPENTER [facility] : 1980 Age/S: 38 / M [address] [facility] Unit #: [id number] Loc: [place] [address] Phys: Josh Norwood Acct: [id number] Dis Date: Status: ADM IN PHONE #: [phone] Exam Date: 06/15/2019 1558 FAX #: [phone] Reason: ABD PAIN EXAMS: CPT CODE: [id number] CT ABD PELVIS W/CONT 85595 <Continued> at 1622 Reported and signed by: VERITO MG M.D. CC: Galindo Chris MD Technologist:Anmol Hardy, RT (R) CT (R) CTDI: 10.14 DLP: 586.96 Trnscb Date/Time: 06/15/2019 (8617) t.SANDRAR.ANS4 Orig Print D/T: S: 06/15/2019 (0247) PAGE 2 Signed ReportUR CREATININE [id number] 14:23:00 Test Item Value Reference Range Interpretation Comments UR CREATININE RANDOM (test code = 37.0 mg/dL CREATU) [id number] 11:48:00 Test Item Value Reference Range Interpretation Comments GLUBED (test code = 171 mg/dL 70-105 H Performe d by certified GLUBED) sewage treatment plant operator at [facility] [id number] 06:29:00 Test Item Value Reference Range Interpretation Comments GLUBED (test code = 191 mg/dL 70-105 H Performe d by certified GLUBED) sewage treatment plant operator at [facility] - XR ABDOMEN 1V (KUB)2019-06-14 22:36:00 [facility] Name: RADHA CARPENTER [address] [place] [address] Phys: Josh Norwood [place] [address] : 1980 Age: 38 Sex: M Acct: [id number] Loc: H.515 A PHONE #: [phone] Exam Date: 06/14/2019 Status: ADM IN FAX #: [phone] Radiology No: Unit No: [id number] Reason: ABD PAIN EXAMS: CPT CODE: [id number] XR ABDOMEN 1V (KUB) 24761 Fluoro Time: DAP (Gy m2): Air Kerma [...] Gallegos RT (R) Transcribed Date/Time: 06/14/2019 (2235) Yakov Orig Print D/T: S: 06/14/2019 (4809) PAGE 1 Signed [id number] 20:44:00 Test Item Value Reference Range Interpretation Comments GLUBED (test code = 188 mg/dL 70-105 H Performe d by certified GLUBED) sewage treatment plant operator at [facility]2020-01-28 16:32:00 Test Item Value Reference Range Interpretation Comments GLUBED (test code = 180 mg/dL 70-105 H Performe d by certified GLUBED) sewage treatment plant operator at [facility]2020-01-28 11:37:00 Test Item Value Reference Range Interpretation Comments GLUBED (test code = 223 mg/dL 70-105 H Performe d by certified GLUBED) sewage treatment plant operator at [facility]2020-01-27 21:58:00 Test Item Value Reference Range Interpretation Comments GLUBED (test code = 135 mg/dL 70-105 H Performe d by certified GLUBED) sewage treatment plant operator at [facility]2020-01-27 19:17:00 Test Item Value Reference Range Interpretation Comments GLUBED (test code = 162 mg/dL 70-105 H Performe d by certified GLUBED) sewage treatment plant operator at [facility]2020-01-27 19:17:00 Test Item Value Reference Range Interpretation Comments GLUBED (test code = 213 mg/dL 70-105 H Performe d by certified GLUBED) sewage treatment plant operator at [facility] - XR CHEST 1 [id number] 18:19:00 [facility] Name: RADHA CARPENTER [address] [place] [address] Phys: Jin Fatima MD [place], [place] [address] : 1980 Age: 38 Sex: M Acct: [id number] Loc: [place] PHONE #: [phone] Exam Date: 06/13/2019 Status: REG ER FAX #: [phone] Radiology No: Unit No: [id number] Reason: pain EXAMS: CPT CODE: [id number] XR CHEST 1 V 16938 Fluoro Time: DAP (Gy m2): Air Kerma [...] 50-136 N TOTAL (test code = ALKP) [id number] 18:01:00 Test Item Value Reference Range Interpretation Comments LIPASE (test code = LIP) 69 U/L 73-393 L CBC W/AUTO [id number] 17:46:00 Test Item Value Reference Range Interpretation [...] code = 0.00 K/mm3 0.0-0.1 N NRBC#) [id number] 16:38:00 Test Item Value Reference Range Interpretation Comments GLUBED (test code = 195 mg/dL 70-105 H Performe d by certified GLUBED) sewage treatment plant operator at [facility] [id number] 11:47:00 Test Item Value Reference Range Interpretation Comments GLUBED (test code = 254 mg/dL 70-105 H Performe d by certified GLUBED) sewage treatment plant operator at [facility] UA RFLX MICROSCOPIC [id number] 10:08:00 Test Item Value Reference Range Interpretation [...] code = GLUBED) 150 mg/dL 70-105 H [id number] 22:49:00 Test Item Value Reference Range Interpretation Comments GLUBED (test code = 214 mg/dL 70-105 H Performe d by certified GLUBED) sewage treatment plant operator at [facility] UA RFLX MICROSCOPIC [id number] 18:28:00 Test Item Value Reference Range Interpretation [...] Dysuria/FrequencyURINE SOURCE: STRAIGHT CATHCOMMENT: PER DR. KELSEY [id number] 16:35:00 Test Item Value Reference Range Interpretation Comments GLUBED (test code = 143 mg/dL 70-105 H Performe d by certified GLUBED) sewage treatment plant operator at [facility] [id number] 14:55:00 Test Item Value Reference Range Interpretation Comments GLUBED (test code = 204 mg/dL 70-105 H Performe d by certified GLUBED) sewage treatment plant operator at [facility] [id number] 10:20:00 Test Item Value Reference Range Interpretation Comments GLUBED (test code = 159 mg/dL 70-105 H Performe d by certified GLUBED) sewage treatment plant operator at [facility] [id number] 06:47:00 Test Item Value Reference Range Interpretation Comments GLYCOSYLATED HEMOGLOBIN (HA1C) 12.2 % 4.2-6.3 H (test code = GLYHGB) ESTIMATED AVERAGE GLUCOSE (test 303 MG/DL <126 code = EAG) COMPREHENSIVE METABOLIC [id number] 06:35:00 Test Item Value Reference Range Interpretation [...] ce average 6.14 Thr ee times average [id number] 06:35:00 Test Item Value Reference Range Interpretation Comments LIPASE (test code = LIP) 51 U/L 73-393 L CBC W/AUTO [id number] 06:10:00 Test Item Value Reference Range Interpretation [...] code = 0.00 K/mm3 0.0-0.1 N NRBC#) [id number] 00:01:00 Test Item Value Reference Range Interpretation Comments GLUBED (test code = 191 mg/dL 70-105 H Performe d by certified GLUBED) sewage treatment plant operator at [facility] - CT ABD PELVIS W/O [id number] 17:17:00 Name: RADHA CARPENTER [facility] : 1980 Age/S: 38 / M [address] Unit #: [id number] Loc: [place], [place] [address] Phys: Edson Potts Jr, MD Acct: [id number] Dis Date: Status: ADM IN PHONE #: [phone] Exam Date: 06/01/2019 1646 FAX #: [phone] Reason: ABD APIN EXAMS: CPTCODE: [id number] CT ABD PELVIS W/O CONT 74540 - CT ABD PELVIS W/O CONT CLINICAL [...] 1 Signed Report (CONTINUED) Name: RADHA CARPENTER [facility] : 1980 Age/S: 38 / M [address] [facility] Unit #: [id number] Loc: [place] [address] Phys: Edson Potts Jr, MD Acct: [id number] Dis Date: Status: ADM IN PHONE #: [phone] Exam Date: 06/01/2019 1646 FAX #: [phone] Reason: ABD APIN EXAMS: CPT CODE: [id number] CT ABD PELVIS W/O CONT 27528 <Continued> No evidence of intestinal or urinary [...] 10.33 DLP: 624.19 Trnscb Date/Time: 06/01/2019 (1717) MadelineR.KAA2 Orig Print D/T: S: 06/01/2019 (6740) PAGE 2 Signed Report- XR CHEST 1 V 2019-06-01 14:37:00 [facility] Name: RADHA CARPENTER [address] [place] [address] Phys: Edson Potts Jr, MD [place] [address] : 1980 Age: 38 Sex: M Acct: [id number] Loc: [place] PHONE #: Exam Date: 06/01/2019 Status: REG ER FAX #: [phone] Radiology No: Unit No: [id number] Reason: chest pain EXAMS: CPT CODE: [id number] XR CHEST 1 V 33354 Fluoro Time: DAP (Gy m2): Air Kerma (mGy): Location code: R 16 Chest 1 view Indication: chest pain. Comparison: None Findings: The heart and mediastinum are not remarkable. Costophrenic angles are clear. Lungs are clear. Bone is unremarkable for age. Impression: 1. No radiographic evidence of acute cardiopulmonary disease. at 1437 Reported and signed by: RAMAN BROWN M.D. CC: Galindo Chris MD Technologist: Anton Martinez, RT(R) Transcribed Date/Time: 06/01/2019 (7391) t.SDR.DRB1 Orig Print D/T: S: 06/01/2019 (9563) PAGE 1 Signed ReportPROTHROMBIN TIME 2019-06-01 14:25:00 [...] with mechanicalprost hetic heart valves. THROMBOPLASTIN TIME [id number] 14:25:00 Test Item Value Reference Range Interpretation Comments THROMBOPLASTIN TIME PARTIAL 24.0 seconds 22.8-34.4 N (test code = PTT) BASIC METABOLIC [id number] 14:21:00 Test Item Value Reference Range Interpretation [...] code = 10.2 mg/dL 8.5-10.1 H CA) [id number] 14:21:00 Test Item Value Reference Range Interpretation Comments LIPASE (test code = LIP) 68 U/L 73-393 L [id number] 14:21:00 Test Item Value Reference Range Interpretation Comments TROPONIN-I (test <0.015 ng/ml 0.00-0.045 N GUIDELINES: 0.08 - 0.09 code = TROPI) Indeterminate0 .10 Risk Stratifica tion Limit: Suggest sequential te sting0.60 - 1.50 AMI cut off: Myocardial Inju ry by WHO criteria CBC W/AUTO [id number] 14:11:00 Test Item Value Reference Range Interpretation [...] code = 0.00 K/mm3 0.0-0.1 N NRBC#) [id number] 09:36:00 Test Item Value Reference Range Interpretation Comments GLUBED (test code = 314 mg/dL 70-105 H Performe d by certified GLUBED) sewage treatment plant operator at [facility] [id number] 09:36:00 Test Item Value Reference Range Interpretation Comments GLUBED (test code = 288 mg/dL 70-105 H Performe d by certified GLUBED) sewage treatment plant operator at [facility] BASIC METABOLIC [id number] 06:10:00 Test Item Value Reference Range Interpretation [...] = 9.4 mg/dL 8.5-10.1 N CA) LIVER [id number] 06:10:00 Test Item Value Reference Range Interpretation [...] 68 U/L 50-136 N code = ALKP) [id number] 06:10:00 Test Item Value Reference Range Interpretation Comments TRIGLYCERIDES (test code = TRIG) 225 mg/dL 30-150 H [id number] 06:10:00 Test Item Value Reference Range Interpretation Comments LIPASE (test code = LIP) 56 U/L 73-393 L BETA [id number] 06:10:00 Test Item Value Reference Range Interpretation Comments BETA HYDROBUTYRATE (test code = 2.70 mmol/L 0.00-0.28 H BETHYD) BASIC METABOLIC [id number] 06:03:00 Test Item Value Reference Range Interpretation [...] = CA) 9.4 mg/dL 8.5-10.1 N LIVER [id number] 06:03:00 Test Item Value Reference Range Interpretation [...] TOTAL (test U/L 50-136 code = ALKP) [id number] 06:03:00 Test Item Value Reference Range Interpretation Comments TRIGLYCERIDES (test code = TRIG) mg/dL 30-150 [id number] 06:03:00 Test Item Value Reference Range Interpretation Comments LIPASE (test code = LIP) U/L 73-393 BETA [id number] 06:03:00 Test Item Value Reference Range Interpretation Comments BETA HYDROBUTYRATE (test code = mmol/L 0.00-0.28 BETHYD) CBC W/AUTO [id number] 05:59:00 Test Item Value Reference Range Interpretation [...] 0.00 K/mm3 0.0-0.1 N NRBC#) CBC W/AUTO [id number] 06:20:00 Test Item Value Reference Range Interpretation [...] ESTIMATE (test code = INCREASED ADEQUATE PLTEST) [id number] 04:38:00 Test Item Value Reference Range Interpretation Comments GLUBED (test code = 379 mg/dL 70-105 H Performe d by certified GLUBED) sewage treatment plant operator at [facility] - CT ABD PELVIS W/O [id number] 00:16:00 Name: RADHA CARPENTER [facility] : 1980 Age/S: 38 / M [address] [place] [address] Road Unit #: [id number] Loc: [place] [address] Phys: Francisco J,Emir DO Acct: [id number] Dis Date: Status: REG ER PHONE #: [phone] Exam Date: 05/20/2019 2351 FAX #: [phone] Reason: PAIN EXAMS: CPTCODE: [id number] CT ABD PELVIS W/O CONT 04119 LOCATION: 3 EXAM: - CT ABD PELVIS [...] 1 Signed Report (CONTINUED) Name: RADHA CARPENTER [facility] : 1980 Age/S: 38 / M [address] [place] [address] Unit #: [id number] Loc: [place] [address] Phys: Francisco J,Emir DO Acct: [id number] Dis Date: Status: REG ER PHONE #: [phone] Exam Date: 05/20/2019 2356 FAX #: [phone] Reason: PAINEXAMS: CPT CODE: [id number] CT ABD PELVIS W/O CONT 22221 <Continued> evidence of pneumoperitoneum. Bones and soft tissues: The osseous structures are intact. Appliance overliesthe left abdominal wall with lead tips anterior to the distal gastric body. IMPRESSION: Essentially unremarkable noncontrast CT examination of the abdomen and pelvis without evidence of acute intra-abdominal pathology. at 0016 Reported and signed by: ISSA MG MD. CC: Emir Marx DO; Galindo Chris MD Technologist:Raman Aburto RTCTDI: 10.59 DLP: 623.67 Trnscb Date/Time: 05/21/2019 (0016) t.SDR.NS15 Orig Print D/T: S: 05/21/2019 (0019) PAGE 2 Signed ReportUA RFLX MICROSCOPIC [id number] 00:07:00 Test Item Value Reference Range Interpretation [...] Dysuria/FrequencyURINE SOURCE: CLEAN CATCH URINE BASIC METABOLIC [id number] 23:38:00 Test Item Value Reference Range Interpretation [...] 10.0 mg/dL 8.5-10.1 N CA) RECOLLECTION HEMOLYZEDLIVER [id number] 23:38:00 Test Item Value Reference Range Interpretation [...] U/L 50-136 N code = ALKP) RECOLLECTION [id number] 23:38:00 Test Item Value Reference Range Interpretation Comments LIPASE (test code = LIP) 42 U/L 73-393 L RECOLLECTION HEMOLYZEDCBC W/AUTO [id number] 23:03:00 Test Item Value Reference Range Interpretation [...]
--- NOTE | 2021-12-08 02:07 | ER ---
Nurse's Notes [facility] Name: Christian Lee Age: 41 yrs Sex: Male : 1980 Arrival Date: 12/07/2021 Time: 23:56 Bed 26 Private MD: Diagnosis: Dog Bite Left hand;Cellulitis Right hand;Tachycardia, unspecified Presentation: 12/08 00:06 Chief complaint: Patient states: DOG BITE YESTERDAY AND NOW HIS HAND IS SWELLING AND bh1 INFECTED. Coronavirus screen: Vaccine status: Patient reports receiving the 2nd dose of the covid vaccine. At this time, the client does not indicate any symptoms associated with coronavirus-19. Ebola Screen: Patient negative for fever greater than or equal to 101.5 degrees Fahrenheit, and additional compatible Ebola Virus Disease symptoms. Initial Sepsis Screen: Does the patient meet any 2 criteria? HR > 90 bpm. No. Patient's initial sepsis screen is negative. Does the patient have a suspected source of infection? No. Patient's initial sepsis screen is negative. Risk Assessment: Do you want to hurt yourself or someone else? Patient reports no desire to harm self or others. Onset of symptoms was December 08, 2021. 00:06 Method Of Arrival: Ambulatory [facility] 00:06 Acuity: IRINEO 3 [facility] Triage Assessment: 00:10 General: Appears in no apparent distress. uncomfortable, ill, Behavior is calm, 1 cooperative, appropriate for age. Pain: Complains of pain in left hand. Historical: - Allergies: 00:09 Clonidine; [facility] 00:09 Compazine; [facility] 00:09 [place]; GI problems; [facility] 00:09 Reglan; [facility] 00:09 tramadol; GI problems; [facility] - Home Meds: 00:09 Lantus Sub-Q [Active]; lisinopril-hydrochlorothiazide Oral [Active]; Motilium [Active]; [facility] nortriptyline Oral [Active]; Novolog Sub-Q [Active]; Simvastatin Oral [Active]; - PMHx: 00:09 diabetes mellitus; Gastroparesis; Hypertensive disorder; insomnia; neuropathy; [facility] - PSHx: 00:09 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 - Social history:: Smoking status: Patient denies any tobacco usage or history of. Screenin:55 Abuse screen: Denies threats or abuse. Denies injuries from another. Nutritional vc1 screening: No deficits noted. Tuberculosis screening: No symptoms or risk factors identified. Fall Risk None identified. Assessment: 00:55 General: Appears in no apparent distress. uncomfortable, Behavior is calm, cooperative. vc1 Pain: Complains of pain in left hand Pain currently is 9 out of 10 on a pain scale. Neuro: No deficits noted. Level of Consciousness is awake, alert, obeys commands, Oriented to person, place, time, situation. Cardiovascular: No deficits noted. Denies chest pain, shortness of breath, Capillary refill < 3 seconds Clubbing of nail beds is absent JVD is absent Patient's skin is warm and dry. Respiratory: No deficits noted. Airway is patent Trachea midline Respiratory effort is even, unlabored, Respiratory pattern is regular, symmetrical. GI: No deficits noted. No signs and/or symptoms were reported involving the gastrointestinal system. Abdomen is flat, non-distended. : No deficits noted. No signs and/or symptoms were reported regarding the genitourinary system. EENT: No deficits noted. No signs and/or symptoms were reported regarding the EENT system. Derm: Skin is intact, is healthy with good turgor, Skin is dry, Skin temperature is warm swelling noted to left hand Reports pain. Musculoskeletal: Circulation, motion, and sensation intact. Range of motion: intact in all extremities, Swelling present in left hand. 02:14 Reassessment: Patient appears in no apparent distress at this time. No changes from vc1 previously documented assessment. Patient and/or family updated on plan of care and expected duration. Pain level reassessed. Patient is alert, oriented x 3, equal unlabored respirations, skin warm/dry/pink. Vital Signs: 00:06 BP 156 / 105; Pulse 110; Resp 22; Temp 98.8; Pulse Ox 100% on R/A; Weight 95.25 kg; 1 Height 6 ft. 1 in. (185.42 cm); Pain 10/10; 03:08 BP 167 / 92; Pulse 98; Resp 19 S; Pulse Ox 100% on R/A; lg3 00:06 Body Mass Index 27.71 (95.25 kg, 185.42 cm) [facility] ED Course: 12/07 23:56 Patient arrived in ED. bp1 23:59 Salvatore Bergeron PA is PHCP. jmm 23:59 Jacques Ny DO is Attending Physician. [facility] 12/08 00:09 Triage completed. bh1 00:10 Arm band placed on left wrist. bh1 00:26 Catina Rodas, RN is Primary Nurse. vc1 00:55 Patient has correct armband on for positive identification. Bed in low position. Call vc1 light in reach. Side rails up X 1. Client placed on continuous cardiac and pulse oximetry monitoring. NIBP monitoring applied. 01:47 Blood Culture Adult (2) Sent. vc1 01:47 CMP Sent. vc1 01:47 CBC with Diff Sent. vc1 01:48 Inserted saline lock: 22 gauge in left forearm, using aseptic technique. Blood vc1 collected. 02:07 EKG done, by ED staff, reviewed by Jacques Ny DO. 5 02:14 Lactate Sent. vc1 02:20 Nadeem Still MD is Hospitalizing Provider. ms3 03:08 SARS RAPID Sent. lg3 03:09 No provider procedures requiring assistance completed. Patient admitted, IV remains in lg3 place. intact, No redness/swelling at site. Administered Medications: 02:04 Drug: Zosyn (piperacillin-tazobactam) 3.375 grams Route: IVPB; Infused Over: 60 mins; vc1 Site: left forearm; 03:09 Follow up: Response: No adverse reaction; IV Status: Completed infusion; IV Intake: lg3 100ml 02:14 Drug: morphine 4 mg Route: IVP; Infused Over: 4 mins; Site: left forearm; vc1 02:14 Follow up: Response: No adverse reaction vc1 03:08 Drug: Dilaudid (HYDROmorphone) 0.5 mg Route: IVP; Site: left forearm; lg3 03:08 Follow up: Response: No adverse reaction lg3 Medication: 03:09 VIS not applicable for this client. lg3 Intake: 03:09 IV: 100ml; Total: 100ml. lg3 Outcome: 02:06 ER care complete, transfer ordered by . ms3 02:21 Decision to Hospitalize by Provider. ms3 03:09 Admitted to ER Hold. Please see [facility] for further documentation. lg3 03:09 Condition: stable 03:09 Instructed on the need for admit, Demonstrated understanding of instructions. 08:11 Patient left the ED. eb Signatures: Salvatore Bergeron PA PA jmm Martinez, Maria [facility] Emily Franco Lacie, MOSES RN lg3 Jacques Ny, DO GOMEZ ms3 Chula Nunn Vanessa RN RN vc1 Lakeshia Renee RN RN bh1
--- NOTE | 2021-12-08 02:07 | EDPHYS ---
Physician Documentation [facility] Name: Christian Lee Age: 41 yrs Sex: Male : 1980 Arrival Date: 12/07/2021 Time: 23:56 Bed 26 Private MD: ED Physician Jacques Ny HPI: 12/08 00:30 This 41 yrs old Male presents to ER via Ambulatory with complaints of Hand jmm Swelling, Hand Pain. 00:30 The patient or guardian reports pain, swelling. Onset: The symptoms/episode jmm began/occurred gradually, 1 day(s) ago. This is a 41-year-old male with history of diabetes mellitus, hypertension the presents emerged from with swelling to the left hand. Patient was bitten by his dog yesterday and evaluated by the ED. Prescribed oral antibiotics. Swelling increased this evening. Denies fever.. 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 - Social history:: Smoking status: Patient denies any tobacco usage or history of. ROS: 00:30 Constitutional: Negative for fever, chills, and weight loss, Cardiovascular: Negative jmm for chest pain, palpitations, and edema, Respiratory: Negative for shortness of breath, cough, wheezing, and pleuritic chest pain. 00:30 Skin: Positive for erythema. 00:30 All other systems are negative. Exam: 00:30 Constitutional: This is a well developed, well nourished patient who is awake, alert, jmm and in no acute distress. Head/Face: atraumatic. Eyes: EOMI, no conjunctival erythema appreciated ENT: Moist Mucus Membranes Neck: Trachea midline, Supple Chest/axilla: Normal chest wall appearance and motion. Cardiovascular: Regular rate and rhythm. No edema appreciated Respiratory: Normal respirations, no respiratory distress appreciated Abdomen/GI: Non distended Back: Normal ROM 00:30 Skin: Erythema and induration noted to the dorsal surface of the left hand, tender to palpation. 00:30 Neuro: Orientation: is normal, Mentation: is normal, Memory: is normal. 00:30 Psych: Behavior/mood is pleasant, cooperative. Vital Signs: 00:06 BP 156 / 105; Pulse 110; Resp 22; Temp 98.8; Pulse Ox 100% on R/A; Weight 95.25 kg; 1 Height 6 ft. 1 in. (185.42 cm); Pain 10/10; 03:08 BP 167 / 92; Pulse 98; Resp 19 S; Pulse Ox 100% on R/A; lg3 00:06 Body Mass Index 27.71 (95.25 kg, 185.42 cm) [facility] MDM: 00:08 Patient medically screened. [facility] 00:32 Data reviewed: vital signs, nurses notes. Transition of care: After a detail discussion [facility] of the patient's case, care is transferred to Jacques Ny DO. 05:38 Counseling: I had a detailed discussion with the patient and/or guardian regarding: the ca3 historical points, exam findings, and any diagnostic results supporting the discharge/admit diagnosis, lab results, radiology results, the need for further work-up and treatment in the hospital. ED course: Discussed case with Dr Payton and he would like patient to be NPO and he will plan for OR in the AM. Discussed case with Jeffrey Orlando, DAVID, and he accepts patient to the Hospitalist group.. 12/08 00:10 Order name: CBC with Diff; Complete Time: 02: [facility] 12/08 00:10 Order name: CMP; Complete Time: 02: [facility] 12/08 00:10 Order name: Blood Culture Adult (2) [facility] 12/08 01:48 Order name: Lactate; Complete Time: 02: ca3 12/08 01:48 Order name: Protime (+inr); Complete [place]: 02 [facility] [place] 01:48 Order name: Ptt, Activated; Complete Time: 02 ms3 12/08 00:10 Order name: Saline Lock; Complete Time: 01:47 jmm 12/08 02:16 Order name: Glucose, Ancillary Testing; Complete Time: 02:31 EDMS 12/08 02:25 Order name: Hand Left 3 View XRAY ms3 12/08 02:31 Order name: SARS RAPID; Complete Time: 05:40 vc1 12/08 07:59 Order name: Glucose, Ancillary Testing EDMS 12/08 01:48 Order name: Accucheck; Complete Time: 02:04 ms3 12/08 01:48 Order name: Cardiac monitoring; Complete Time: 01:53 ms3 12/08 01:48 Order name: EKG - Nurse/Tech; Complete Time: 01:53 ms3 12/08 01:48 Order name: IV Saline Lock - Large Bore; Complete Time: 01:49 ms3 12/08 01:48 Order name: Labs collected and sent; Complete Time: 01:49 ms3 12/08 01:48 Order name: O2 Per Protocol; Complete Time: 01:49 ms3 12/08 01:48 Order name: O2 Sat Monitoring; Complete Time: 01:49 ms3 12/08 02:25 Order name: NPO; Complete Time: 02:34 vc1 Administered Medications: 02:04 Drug: Zosyn (piperacillin-tazobactam) 3.375 grams Route: IVPB; Infused Over: 60 mins; vc1 Site: left forearm; 03:09 Follow up: Response: No adverse reaction; IV Status: Completed infusion; IV Intake: lg3 100ml 02:14 Drug: morphine 4 mg Route: IVP; Infused Over: 4 mins; Site: left forearm; vc1 02:14 Follow up: Response: No adverse reaction vc1 03:08 Drug: Dilaudid (HYDROmorphone) 0.5 mg Route: IVP; Site: left forearm; lg3 03:08 Follow up: Response: No adverse reaction lg3 Disposition: 05:39 Co-signature as Attending Physician, Jacques Ny DO. ms3 Disposition Summary: 12/08/21 02:21 Hospitalization Ordered Hospitalization Status: Inpatient Admission ms3 Provider: Nadeem Still ms3 Condition: Stable(12/08/21 02:21) ms3 Problem: new(12/08/21 02:21) ms3 Symptoms: are unchanged(12/08/21 02:21) ms3 Bed/Room Type: Standard ms3 Location: [facility] ER HOLD(12/08/21 03:00) cg Room Assignment: ERHOLD-(12/08/21 03:00) cg Diagnosis - Dog Bite Left hand ms3 - Cellulitis Right hand ms3 - Tachycardia, unspecified(12/08/21 02:21) ms3 Forms: - Medication Reconciliation Form ms3 - SBAR form ms3 Signatures: Dispatcher [employer] EDSalvatore Pettit, WALT PA Jeffrey Cook, LIVESTOCK PRODUCER-C LIVESTOCK PRODUCER-Cla1 Nano Lee, RN RN cg Cayla Mixon, RN RN lg3 Jacques Ny DO DO ms3 Catina Rodas RN RN vc1 Lakeshia Renee, RN RN bh1 Corrections: (The following items were deleted from the chart) 02:19 02:06 ms3 ms3 02:19 02:06 [facility] ms3 ms3 02:19 02:06 Higher level of care ms3 ms3 02:19 02:06 Stable ms3 ms3 02:19 02:06 new ms3 ms3 02:19 02:06 have worsened ms3 ms3 02:19 02:06 Cellulitis of left upper limb ms3 ms3 02:19 02:06 Tachycardia, unspecified ms3 ms3 03:00 02:21 Telemetry/MedSurg (Inpatient) ms3 cg 03:00 02:21 ms3 cg
[2021-12-08] MEDS ORDERED: PIPERACIL/TAZO 3.375 GM VIAL IV ONE (02:08)
[2021-12-08] MEDS ORDERED: NA CHLORIDE 0.9% 100 ML ONE (02:08)
[2021-12-08 02:10] LABS: Absolute Lymphocytes (CBC) 1.8 K/uL (0.7-4.9); Hematocrit 35.4 % (39.6-49.0); Lymphocytes % 25.1 % (15.3-44.8); MCV 89.6 fL (80-100); MPV 7.8 fL (7.6-11.3); RBC Red Blood Cell Count 3.95 M/uL (4.33-5.43)
[2021-12-08 02:13] LABS: Protime INR 0.92
[2021-12-08] MEDS ORDERED: MORPHINE 4 MG/ML SYR ONE (02:17)
[2021-12-08 02:25] LABS: Albumin 3.6 g/dL (3.4-5.0); Bilirubin Total 0.3 mg/dL (0.2-1.0); Potassium 3.5 mmol/L (3.5-5.1); Protein, Total 7.3 g/dL (6.4-8.2)
[2021-12-08] MEDS ORDERED: HYDROMORPHONE HCL 0.5 MG/0.5 ML INJ ONE ×3 (03:02→07:16)
--- NOTE | 2021-12-08 03:15 | P.HP ---
Certification for Inpatient Patient admitted to: Inpatient With expected LOS: >2 Midnights Patient will require the following post-hospital care: None Practitioner: I am a practitioner with admitting privileges, knowledge of patient current condition, hospital course, and medical plan of care. Services: Services provided to patient in accordance with Admission requirements found in Title 42 Section 412.3 of the Code of Federal Regulations <Jeffrey Murrieta - Last Filed: 12/08/21 03:07> Patient History Date of Service: 12/08/21 Reason for admission: Left hand cellulitis/sepsis History of Present Illness: 41-year-old male with history of type 1 diabetes, hypertension, hyperlipidemia, gastroparesis presents emergency department for left hand pain. He was seen here in the emergency department on Thursday the for a dog bite to the left hand, he was bit by his own dog after trying to break them up from fighting. Neri kingsley received a tetanus vaccine as well as a dose of Augmentin and a prescription for Augmentin which she did take beginning the next day. He noticed increasing pain, swelling and erythema to his left hand which prompted his return visit today. He was evaluated here in the emergency department he met the SIRS criteria of tachycardia and tachypnea with positive source of infection be treated for sepsis his lactate was normal no sign of endorgan damage, lactic acidosis or hypotension. Currently with sepsis without severe sepsis or septic shock. He has swelling and erythema to his left hand. ED provider discussed case with hand surgery who wishes patient to be admitted to the hospitalist service and he will be seen in the morning with anticipated surgical intervention this morning. - Past Medical/Surgical History Diabetic: Yes -: T1DM -: gastoparesis -: neuropathy -: HLD -: HTN -: Osteomyelitis -: R foot diabetic ulcer debridement -: cholecystectomy -: gastroneuro stimulator implant -: multiple vascular procedures on R leg Psychosocial/ Personal History: Lives at home with family - Family History Father -: Diabetes Mother -: Hypertension, Diabetes, Cancer Brother -: Diabetes Sister -: Diabetes - Social History Smoking Status: Never smoker Alcohol use: No CD- Drugs: No Caffeine use: Yes Place of Residence: Home <Jeffrey Murrieta - Last Filed: 12/08/21 03:07> Date of Service: 12/08/21 <Nadeem Still - Last Filed: 12/08/21 08:05> Allergies acetaminophen [From [place]alevel] Allergy (Verified 09/16/21 11:30) Hives hydrocodone [From [place]alevel] Allergy (Verified 09/16/21 11:30) Hives tramadol Allergy (Verified 09/16/21 11:30) Hives metoclopramide [From Reglan] Adverse Reaction (Intermediate, Verified 02/11/21 14:08) involuntary spasms clonidine Adverse Reaction (Verified 02/11/21 14:08) severe anxiety prochlorperazine [From Compazine] Adverse Reaction (Verified 02/11/21 14:08) severe anxiety Home Medications: Insulin Aspart [Novolog Penfill] 30 unit SQ AC 01/24/21 Insulin Glargine,Hum.rec.anlog [Lantus] 50 units SQ BID 01/24/21 Nortriptyline HCl [Pamelor] 50 mg PO BEDTIME 01/24/21 Zolpidem Tartrate 10 mg PO BEDTIME 01/24/21 Famotidine 20 mg PO DAILY 09/15/21 Lisinopril [Zestril] 5 mg PO DAILY 09/15/21 Simvastatin 5 mg PO DAILY 09/15/21 Smz./Tmp. [Bactrim Ds 800 MG/160 MG] 1 tab PO BID #28 tab 09/17/21 levoFLOXacin [Levaquin] 750 mg PO DAILY #14 tab 09/17/21 Review of Systems 10-point ROS is otherwise unremarkable Musculoskeletal: Hand Pain, As per HPI Integumentary: As per HPI <Jeffrey Murrieta - Last Filed: 12/08/21 03:07> Physical Examination - Physical Exam General: Alert, In no apparent distress, Oriented x3 HEENT: Atraumatic, PERRLA, Mucous membr. moist/pink, EOMI, Sclerae nonicteric Neck: Supple, 2+ carotid pulse no bruit, No LAD, Without JVD or thyroid abnormality Respiratory: Clear to auscultation bilaterally, Normal air movement Cardiovascular: Regular rate/rhythm, Normal S1 S2 Capillary refill: <2 Seconds Gastrointestinal: Normal bowel sounds, No tenderness Musculoskeletal: No tenderness, Erythema, Tenderness, Warmth, Other (Fusiform swelling of fingers, held in passive flexion, pain with extension, tenderness along tendon sheath) Integumentary: No rashes, Tenderness/swelling, Erythema, Warmth Neurological: Normal gait, Normal speech, Normal strength at 5/5 x4 extr, Normal tone, Normal affect - Studies Laboratory Data (last 24 hrs) 12/08/21 01:47: PT 10.1, INR 0.92, APTT 34.0 12/08/21 01:47: Sodium 141, Potassium 3.5, BUN 18, Creatinine 0.99, Glucose 202 H, Total Bilirubin 0.3, AST 19, ALT 37, Alkaline Phosphatase 83 12/08/21 01:47: WBC 7.2, Hgb 12.1 L, Hct 35.4 L, Plt Count 294 <Jeffrey Murrieta - Last Filed: 12/08/21 03:07> - Studies Laboratory Data (last 24 hrs) 12/08/21 01:47: PT 10.1, INR 0.92, APTT 34.0 12/08/21 01:47: Sodium 141, Potassium 3.5, BUN 18, Creatinine 0.99, Glucose 202 H, Total Bilirubin 0.3, AST 19, ALT 37, Alkaline Phosphatase 83 12/08/21 01:47: WBC 7.2, Hgb 12.1 L, Hct 35.4 L, Plt Count 294 <Nadeem Still - Last Filed: 12/08/21 08:05> Assessment and Plan - Plan Assessment: Sepsis/Cellulitis of the left hand S/P dog bite 12/04/2021 with concern for flexor tenosynovitis Diabetes mellitus type 1 Gastroparesis HTN HLD Plan: Sepsis/Cellulitis of the left hand S/P dog bite 12/04/2021 with concern for flexor tenosynovitis: Continue IV antibiotics with Zosyn, hand surgery consulted patient is n.p.o. for anticipated surgical intervention this morning. Tetanus up-to-date. Diabetes mellitus type 1: Patient takes Lantus 50 units twice daily as well as NovoLog 30 units 3 times daily before meals, will provide patient with Lantus 35 units twice daily as well as sliding scale insulin during his hospitalization with every 6 hours Accu-Cheks. Gastroparesis: Patient with neuro gastric stimulator in place. Continue home medications when appropriate. HTN:Continue home medications when appropriate. HLD:Continue home medications when appropriate. DVT PPX:SCD Code status:Full Discharge Plan: Home Plan to discharge in: 72 Hours - Advance Directives Does patient have a Living Will: No Does patient have a Durable POA for Healthcare: No - Code Status/Comfort Care Code Status Assessed: Yes (Full code) Critical Care: No Time Spent Managing Pts Care (In Minutes): 70 <Jeffrey Murrieta - Last Filed: 12/08/21 03:07> Physician Review: Patient Assessed, Agree with Above Assessment and Plan <Nadeem Still - Last Filed: 12/08/21 08:05>
[2021-12-08 03:30] LABS: SARS-CoV-2 Antigen Rapid Res Negative (Negative)
[2021-12-08] MEDS: Ringers Lactate 1,000 ML IV SCH ×3 (03:48→23:29)
[2021-12-08] MEDS ORDERED: Ringers Lactate 1,000 ML IV ONE (03:50)
[2021-12-08] MEDS ORDERED: HYDROMORPHONE HCL 0.5 MG/0.5 ML INJ IV ONE ×2 (04:14→22:32)
[2021-12-08] MEDS: HYDROMORPHONE HCL 0.5 MG/0.5 ML INJ IV PRN ×2 (04:20→07:09)
[2021-12-08] MEDS ORDERED: KCL 20 MEQ/100 mL IVPB 100 ML IV ONE (06:29)
[2021-12-08] MEDS ORDERED: KCL 20 MEQ/100 mL IVPB 20 MEQ/100 ML BAG IV SCH (07:00)
[2021-12-08] MEDS: INSULIN -REGULAR HUMAN 50 UNIT/0.5 ML ML SQ SCH ×4 (07:30→20:40)
[2021-12-08] MEDS ORDERED: DEXTROSE 10%-WATER 500 ML IV ONE (07:37)
[2021-12-08] MEDS ORDERED: WATER IV SCH (07:38)
[2021-12-08] MEDS ORDERED: DEXTROSE 10% IV SCH (07:38)
[2021-12-08] MEDS ORDERED: HYDROMORPHONE HCL 1 MG/ML INJ IV PRN (07:39)
[2021-12-08] MEDS ORDERED: NA CHLORIDE 0.9% 1,000 ML ONE (07:45)
[2021-12-08] MEDS ORDERED: NA CIT/CITRIC AC 30 ML ORAL UDC ONE (07:59)
[2021-12-08] MEDS ORDERED: SUCCINYLCHOLINE 20 MG/ML (10 ML) IV ONE (08:00)
[2021-12-08] MEDS ORDERED: LIDOCAINE 2% MPF 5 ML VIAL ONE (08:02)
[2021-12-08] MEDS ORDERED: propofoL 200 MG/20 ML VIAL IV ONE (08:02)
[2021-12-08] MEDS ORDERED: FENTANYL CITR 100 MCG/2 ML ONE (08:03)
[2021-12-08] MEDS ORDERED: ONDANSETRON 4 MG/2 ML VIAL ONE (08:40)
[2021-12-08] MEDS ORDERED: KETOROLAC 30 MG/ML INJ ONE (08:40)
[2021-12-08] MEDS ORDERED: dexAMETHasone 10 MG/ML VIAL ONE (08:40)
[2021-12-08] MEDS ORDERED: INSULIN GLARGINE 100 UNIT/ML SQ SCH (09:00)
[2021-12-08] MEDS: INSULIN GLARGINE 100 UNIT/ML SQ SCH ×2 (09:00→20:49)
[2021-12-08] MEDS: PIPER TAZO 3.375 GM in NA CHLORIDE 0.9% 100 ML IV SCH ×2 (09:00→17:07)
[2021-12-08] MEDS: D10W IV SCH ×2 (09:00→10:00)
[2021-12-08] MEDS: HYDROMORPHONE HCL 1 MG/ML INJ ONE ×2 (09:11→09:16)
[2021-12-08] MEDS ORDERED: HYDROMORPHONE HCL 1 MG/ML INJ ONE (09:31)
--- NOTE | 2021-12-08 10:21 | CON ---
History Of Present Illness: A 41-year-old male, right-hand dominant, bitten by his dog over left hand 2 days ago, presented to the ER, given antibiotics. Despite that, he returned to the ER w ith increasing pain. He has history of diabetes. Past Surgical History: He has previous surgery of gallbladder, right foot amputation of toes, and ga stric stimulator. Social History: He does not smoke, does not drink. Medications: He is on multiple medications; insulin, nortriptyline. Allergies: MULTIPLE ALLERGIES. Physical Examination: He is 6 feet 1 inches, 215 pounds. He has a puncture wound over the metacarpal head region of the le ft ring finger as well as a small laceration over the index finger. Diagnostic Data: X-rays show no foreign bodies or fractures. Assessment: Infection, status post dog bite. Plan: Debridement. MARCELINO/ANNA Voice ID: [id number] Report ID: [id number]
[2021-12-08 10:36] VITALS: BMI 28.0
[2021-12-08] MEDS: CODEINE 30MG/APAP 300MG TAB PO PRN ×2 (10:43→20:37)
[2021-12-08] MEDS: MORPHINE 4 MG/ML SYR IM PRN ×3 (12:43→20:38)
[2021-12-08] MEDS: ONDANSETRON 4 MG/2 ML VIAL IV PRN ×2 (13:34→20:39)
--- NOTE | 2021-12-08 13:36 | OP ---
Surgeon: Ezekiel Chen MD Preoperative Diagnosis: Dog bite to the left hand. Postoperative Diagnosis: Dog bite to the left hand. Procedure Performed: Debridement of skin, subcutaneous tissue, incision drained of web space. Anesthesia: General. Description Of Procedure: After the satisfactory induction of general anesthesia, left hand was prepped with Betadine scrub and Betadine paint. Dry sterile drapes were placed in usual manner. Arm was elevated. Tourniquet was inflated to 250 mmHg. Hand was placed on a roll lock table. An elliptical incision was made the incision wound. Then a curved incision was made extending over the web space towards the middle finger. He also has superficial laceration over the index finger . After the debridement of skin and dissection, we proceeded downward. Watery fluid was encountered. Cultures were taken. Wound was jet lavaged, irrigated with 3 L of dilute Betadine solution. Tourniquet was released. Electrocautery was used for hemostasis. Wound was packed with Betadine-soaked quarter-inch Nu Gauze, 2-inch Zachary, Kerlix. The patient tolerated the procedure well and returned to Recovery. MARCELINO/ANNA Voice ID: [id number] Report ID: [id number] ABIGAIL
[2021-12-08] MEDS ORDERED: PROMETHAZINE INJ 25 MG/ML AMP IV ONE (23:30)
[2021-12-09] MEDS: PIPER TAZO 3.375 GM in NA CHLORIDE 0.9% 100 ML IV SCH ×3 (01:10→17:00)
[2021-12-09 03:48] LABS: Absolute Lymphocytes (CBC) 1.1 K/uL (0.7-4.9); Hematocrit 31.6 % (39.6-49.0); Lymphocytes % 17.4 % (15.3-44.8); MCV 88.9 fL (80-100); MPV 7.7 fL (7.6-11.3); RBC Red Blood Cell Count 3.55 M/uL (4.33-5.43)
[2021-12-09 04:11] LABS: Albumin 3.1 g/dL (3.4-5.0); Bilirubin Total 0.4 mg/dL (0.2-1.0); Potassium 3.5 mmol/L (3.5-5.1); Protein, Total 6.8 g/dL (6.4-8.2)
[2021-12-09] MEDS: INSULIN -REGULAR HUMAN 50 UNIT/0.5 ML ML SQ SCH ×4 (07:30→20:51)
[2021-12-09] MEDS: ONDANSETRON 4 MG/2 ML VIAL IV PRN (07:54)
[2021-12-09] MEDS: MORPHINE 4 MG/ML SYR IM PRN (07:55)
[2021-12-09] MEDS: INSULIN GLARGINE 100 UNIT/ML SQ SCH ×2 (07:58→20:53)
[2021-12-09] MEDS: Ringers Lactate 1,000 ML IV SCH ×3 (08:02→19:29)
--- NOTE | 2021-12-09 08:18 | RAD REPORT ---
EXAM DESCRIPTION: US - Abdomen Exam Limited - 12/09/2021 7:39 am CLINICAL HISTORY: Elevated LFTs Abdominal pain COMPARISON: Abdomen Exam Limited dated 02/12/2021; Abdomen Pelvis W Contrast dated 01/23/2021 FINDINGS: Sonographic evaluation of the liver, biliary tree and right upper quadrant performed. Gallbladder is absent. No mass or abnormal fluid collection in the gallbladder fossa. Common bile tara t is normal at 5 mm with no common duct stone identified. Liver is normal size at approximately 13 centimeter similar to the prior study. There are no focal li rhona lesions identifiable. The liver does show a coarsened slightly heterogeneous parenchymal pattern new or more pronounced than the comparison study. This may represent development of fatty infiltratio n of the liver. Non fatty hepatic parenchymal disease is possible as well. Doppler evaluation shows n o portal vein abnormality. The pancreas is not evaluated on this liver ultrasound study. IMPRESSION: Coarsened parenchymal echogenicity in a normal size liver new or increased from prior im aging. Parenchymal pattern in the liver is nonspecific and may represent development of fatty infiltration. Non-fatty hepatic parenchymal disease possible as well. There are no focal liver lesions. Status post cholecystectomy with normal size biliary tree.
[2021-12-09] MEDS ORDERED: POTASSIUM CL SA 10 MEQ TAB PO ONE (09:00)
--- NOTE | 2021-12-09 09:29 | EKG ---
Test Date: 2021-12-08 Test Time: 01:58:12 Production Leader: LICHA MEASUREMENT RESULTS: Intervals: Rate: 104 DE: 122 QRSD: 80 QT: 342 QTc: 449 Johnson: P: 49 DE: 122 QRS: 38 T: 37 INTERPRETIVE STATEMENTS: Sinus tachycardia Possible Left atrial enlargement Borderline ECG Compared to ECG 09/15/2021 00:21:43 Left ventricular hypertrophy no longer present Early repolarization no longer present Electronically Signed On 12-09-21 09:24:58 CDT by Octavio Puri
--- NOTE | 2021-12-09 10:01 | PN ---
The patient began dressing changes. We will stop his morphine . MARCELINO/ANNA Voice ID: [id number] Report ID: [id number] MTDD
[2021-12-09] MEDS: PROMETHAZINE INJ 25 MG/ML AMP IV PRN ×3 (10:52→23:24)
[2021-12-09] MEDS: HYDROMORPHONE HCL 1 MG/ML INJ IV PRN ×3 (10:52→23:25)
--- NOTE | 2021-12-09 15:38 | RAD REPORT ---
EXAM DESCRIPTION: RAD - Hand Left 3 View - 12/08/2021 3:13 am CLINICAL HISTORY: 41 years Male, Pain COMPARISON: None. FINDINGS/IMPRESSION: Mild irregularity of the third proximal phalanx base cortex laterally measuring 4 mm. Findings could be due to nondisplaced fracture or cortical lesion. Correlate clinically for po int tenderness and this can be further evaluated with CT. Electronically signed by: Kt Lopez MD 12/08/2021 4:39 AM CDT Due to temporary technical issues with the PACS/Fluency reporting system, reports are being signed by the in house radiologists without review as a courtesy to insure prompt reporting. The interpreting radiologist is fully responsible for the content of the report.
--- NOTE | 2021-12-09 16:13 | P.PN ---
Subjective Date of Service: 12/09/21 Chief Complaint: Left hand cellulitis/sepsis Subjective: Improving No acute events overnight. He reports that he has had significant post-operative pain in his left hand. He is requesting for stronger pain medication. Review of Systems 10-point ROS is otherwise unremarkable Musculoskeletal: Hand Pain (left hand post-operative pain) Physical Examination - Vital Signs Temperature: 97.7 F Blood Pressure: 120/58 Pulse: 101 Respirations: 18 Pulse Ox (%): 94 - Physical Exam General: Alert, In no apparent distress, Oriented x3 HEENT: Atraumatic, Mucous membr. moist/pink, EOMI, Sclerae nonicteric Neck: Supple Respiratory: Clear to auscultation bilaterally, Normal air movement Cardiovascular: No edema, Regular rate/rhythm, Normal S1 S2, No gallops, No rubs, No murmurs Gastrointestinal: Normal bowel sounds, Non-distended, No tenderness, No rebound, No guarding Musculoskeletal: No clubbing, Other (S/P amputation of 3rd and 4th right toes) Integumentary: No rashes, Other (left hand in surgical dressing.) Assessment And Plan - Plan # Sepsis likely secondary to Left Hand Cellulitis due to Dog Bite He met SIRS criteria based on HR > 90 bpm and RR > 20 breaths/min, and the suspected source is left hand cellulitis. - Hand Surgery consulted - recommendations appreciated - S/P debridement on 12/08/2021 - Sepsis order set was initiated - Initial Lactate was 1.8 - Blood cultures drawn before antibiotics were given - Broad spectrum antibiotics started: Piperacillin-Tazobactam - 30 mL/kg of IV fluids was not administered given SBP > 90, MAP > 65, lactic acid < 4 - S/P Tdap at prior ED visit - No need for rabies vaccine or Ig given that he knows the dogs are vaccinated (both dogs are his pets) # Type I Diabetes Mellitus complicated by Diabetic Gastroparesis - Continue current insulin regimen with basal + correction scale insulin - S/P neuro-gastric stimulator # Hypertension # Hyperlipidemia - Resume home medications once able to tolerate PO # Recetnt Osteomyelitis s/p Right 3rd and 4th Toe Amputation - General Surgery consulted and Dr. Sorenson following - recommendations appreciated # Elevated LFTs - Ordered RUQ ultrasound for today Nadeem Still M.D. Discharge Plan: Home Plan to discharge in: 24 Hours Physician Review: Patient Assessed, Agree with Above Assessment and Plan
[2021-12-10] MEDS: PIPER TAZO 3.375 GM in NA CHLORIDE 0.9% 100 ML IV SCH ×3 (00:45→17:29)
[2021-12-10 03:47] LABS: Absolute Lymphocytes (CBC) 2.1 K/uL (0.7-4.9); Hematocrit 32.2 % (39.6-49.0); Lymphocytes % 30.5 % (15.3-44.8); MCV 91.1 fL (80-100); MPV 7.7 fL (7.6-11.3); RBC Red Blood Cell Count 3.54 M/uL (4.33-5.43)
[2021-12-10] MEDS: Ringers Lactate 1,000 ML IV SCH ×3 (04:02→21:26)
[2021-12-10 04:09] LABS: Bilirubin Total 0.3 mg/dL (0.2-1.0); Potassium 3.5 mmol/L (3.5-5.1); Protein, Total 6.5 g/dL (6.4-8.2)
[2021-12-10] MEDS: HYDROMORPHONE HCL 1 MG/ML INJ IV PRN ×4 (05:28→21:24)
[2021-12-10] MEDS: PROMETHAZINE INJ 25 MG/ML AMP IV PRN ×3 (05:28→17:30)
[2021-12-10] MEDS ORDERED: POTASSIUM CL SA 10 MEQ TAB PO ONE (09:00)
[2021-12-10] MEDS: INSULIN GLARGINE 100 UNIT/ML SQ SCH ×2 (09:25→21:00)
[2021-12-10] MEDS: INSULIN -REGULAR HUMAN 50 UNIT/0.5 ML ML SQ SCH ×4 (09:50→21:00)
--- NOTE | 2021-12-10 17:53 | P.PN ---
Subjective Date of Service: 12/10/21 Chief Complaint: Left hand cellulitis/sepsis Subjective: No new changes Physical Examination - Vital Signs Temperature: 97.5 F Blood Pressure: 146/82 Pulse: 91 Respirations: 16 Pulse Ox (%): 92 - Physical Exam General: Alert, Oriented x3 HEENT: Atraumatic, Normocephalic Neck: Supple Respiratory: Normal air movement Cardiovascular: Regular rate/rhythm, Normal S1 S2 Gastrointestinal: Soft and benign Musculoskeletal: Swelling (of left hand with post op dressing changes noted.) Neurological: Normal speech Assessment And Plan - Plan Plan # Sepsis likely secondary to Left Hand Cellulitis due to Dog Bite Episode is deemed secondary to dog bite related issue. He has had I&D of bite site by surgeon. Continue PICC antibiotic of Zosyn. Will continue wound care as per surgeon recommendation. # Type I Diabetes Mellitus complicated by Diabetic Gastroparesis - Continue current insulin regimen with basal + correction scale insulin - S/P neuro-gastric stimulator # Hypertension # Hyperlipidemia - Resume home medications once able to tolerate PO # Recent Osteomyelitis s/p Right 3rd and 4th Toe Amputation Cardio following for management recommendation # Elevated LFTs Secondary to sepsis. We will follow closely. Disposition: For discharge in AM. Physician Review: Patient Assessed, Agree with Above Assessment and Plan
[2021-12-11] MEDS: Ringers Lactate 1,000 ML IV SCH (00:23)
[2021-12-11] MEDS: PIPER TAZO 3.375 GM in NA CHLORIDE 0.9% 100 ML IV SCH ×2 (00:39→08:18)
[2021-12-11] MEDS: PROMETHAZINE INJ 25 MG/ML AMP IV PRN ×2 (01:19→07:33)
[2021-12-11] MEDS: HYDROMORPHONE HCL 1 MG/ML INJ IV PRN ×4 (01:22→17:21)
[2021-12-11 04:38] LABS: Albumin 2.8 g/dL (3.4-5.0); Bilirubin Total 0.3 mg/dL (0.2-1.0); Hematocrit 33.1 % (39.6-49.0); Lymphocytes % 31.1 % (15.3-44.8); MCV 90.6 fL (80-100); MPV 7.6 fL (7.6-11.3); Potassium 3.4 mmol/L (3.5-5.1); Protein, Total 6.5 g/dL (6.4-8.2); RBC Red Blood Cell Count 3.65 M/uL (4.33-5.43)
[2021-12-11] MEDS: KCL 20 MEQ/100 mL IVPB 20 MEQ/100 ML BAG IV SCH ×2 (06:12→12:15)
[2021-12-11] MEDS ORDERED: NA CHLORIDE 0.9% 1,000 ML IV SCH (07:00)
[2021-12-11] MEDS: INSULIN -REGULAR HUMAN 50 UNIT/0.5 ML ML SQ SCH ×3 (07:30→15:40)
[2021-12-11] MEDS ORDERED: FENTANYL CITR 100 MCG/2 ML ONE ×3 (07:59→13:14)
[2021-12-11] MEDS ORDERED: MIDAZOLAM HCL 2 MG/2 ML INJ ONE ×3 (07:59→13:18)
[2021-12-11] MEDS ORDERED: EPINEPHRINE/PF 1 MG/ML AMP ONE (07:59)
[2021-12-11] MEDS ORDERED: LIDOCAINE 1% MPF 5 ML VIAL ONE ×2 (07:59→13:14)
[2021-12-11] MEDS ORDERED: dexAMETHasone 10 MG/ML VIAL ONE ×3 (07:59→14:27)
[2021-12-11] MEDS ORDERED: ROPLVACAINE HCL 0 ML ONE (08:00)
[2021-12-11] MEDS ORDERED: SUCCINYLCHOLINE 20 MG/ML (10 ML) IV ONE (08:16)
[2021-12-11] MEDS ORDERED: propofoL 200 MG/20 ML VIAL IV ONE ×2 (08:17→13:14)
[2021-12-11] MEDS ORDERED: ROCURONIUM 50 MG/5 ML VIAL IV ONE ×2 (08:18→13:45)
[2021-12-11] MEDS ORDERED: LIDOCAINE 2% MPF 5 ML VIAL ONE (08:18)
[2021-12-11] MEDS: INSULIN GLARGINE 100 UNIT/ML SQ SCH (09:00)
[2021-12-11] MEDS ORDERED: ONDANSETRON 4 MG/2 ML VIAL ONE (14:00)
[2021-12-11] MEDS ORDERED: NEOSTIGMINE 1 MG/ML -10 ML VIAL ONE (14:17)
[2021-12-11] MEDS ORDERED: GLYCOPYRROLATE 0.2 MG/ML SYR ONE (14:17)
[2021-12-11] MEDS ORDERED: KETOROLAC 30 MG/ML INJ ONE (14:26)
[2021-12-11] MEDS: HYDROMORPHONE HCL 1 MG/ML INJ ONE ×8 (14:29→15:10)
[2021-12-11 15:13] VITALS: O2SAT 100
--- NOTE | 2021-12-11 16:57 | P.DS ---
Admission Date: 12/08/21 Discharge Date: 12/11/21 Disposition: ROUTINE DISCHARGE Discharge Condition: GOOD Reason for Admission: Left hand cellulitis/sepsis Brief History of Present Illness: 41-year-old male with history of type 1 diabetes, hypertension, hyperlipidemia, gastroparesis presents emergency department for left hand pain. He was seen here in the emergency department on Thursday the for a dog bite to the left hand, he was bit by his own dog after trying to break them up from fighting. Patient received a tetanus vaccine as well as a dose of Augmentin and a prescription for Augmentin which she did take beginning the next day. He noticed increasing pain, swelling and erythema to his left hand which prompted his return visit today. He was evaluated here in the emergency department he met the SIRS criteria of tachycardia and tachypnea with positive source of infection be treated for sepsis his lactate was normal no sign of endorgan damage, lactic acidosis or hypotension. Currently with sepsis without severe sepsis or septic shock. He has swelling and erythema to his left hand. ED provider discussed case with hand surgery who wishes patient to be admitted to the hospitalist service and he will be seen in the morning with anticipated surgical intervention this morning. Hospital Course: Was started on appropriate therapy with antibiotics and he had urgent debridement by surgeon. He initially had first during episode and he had there with secondary closure. He had no significant symptoms since admission and his pain level 7 purulent drainage from the left hand. He was deemed stable for discharge has had no diffuse tissue infection so he is to complete oral course of Augmentin and pain control with Tylenol 3. To follow-up with surgeon as recommended. Vital Signs/Physical Exam: Temp Pulse Resp BP Pulse Ox 97.1 F 86 18 154/92 H 92 12/11/21 15:10 12/11/21 15:10 12/11/21 15:10 12/11/21 15:10 12/11/21 09:54 General: Alert, Oriented x3 HEENT: Atraumatic, Normocephalic Respiratory: Normal air movement Cardiovascular: Regular rate/rhythm, Normal S1 S2 Gastrointestinal: Soft and benign Musculoskeletal: No swelling, Other (dressing noted over left hand.) Neurological: Normal speech Laboratory Data at Discharge: WBC 6.6 K/uL (4.3-10.9) 12/11/21 03:18 Hgb 11.2 g/dL (13.6-17.9) L 12/11/21 03:18 Hct 33.1 % (39.6-49.0) L 12/11/21 03:18 Plt Count 283 K/uL (152-406) 12/11/21 03:18 PT 10.1 SECONDS (9.5-12.5) 12/08/21 01:47 INR 0.92 12/08/21 01:47 APTT 34.0 SECONDS (24.3-36.9) 12/08/21 01:47 Sodium 140 mmol/L (136-145) 12/11/21 03:18 Potassium 3.4 mmol/L (3.5-5.1) L 12/11/21 03:18 BUN 12 mg/dL (7-18) 12/11/21 03:18 Creatinine 1.00 mg/dL (0.55-1.3) 12/11/21 03:18 Glucose 163 mg/dL (74-106) H 12/11/21 03:18 Total Bilirubin 0.3 mg/dL (0.2-1.0) 12/11/21 03:18 AST 33 U/L (15-37) 12/11/21 03:18 ALT 87 U/L (12-78) H 12/11/21 03:18 Alkaline Phosphatase 82 U/L (45-117) 12/11/21 03:18 Home Medications: Insulin Aspart [Novolog Penfill] 30 unit SQ AC 01/24/21 Insulin Glargine,Hum.rec.anlog [Lantus] 15 units SQ BID 01/24/21 Nortriptyline HCl [Pamelor] 50 mg PO BEDTIME 01/24/21 Zolpidem Tartrate 10 mg PO BEDTIME 01/24/21 Famotidine 20 mg PO BEDTIME 09/15/21 Simvastatin 5 mg PO DAILY 09/15/21 Amox/Clavulanate [Augmentin 875-125 Tab] 875 mg PO BID 7 Days #14 tab 12/11/21 Codeine/APAP [Tylenol #3*] 1 tab PO TID #20 tab 12/11/21 New Medications: Amox/Clavulanate [Augmentin 875-125 Tab] 875 mg PO BID 7 Days #14 tab Codeine/APAP [Tylenol #3*] 1 tab PO TID #20 tab Diet: ADA Activity: Ad yasmani Followup: Ezekiel Chen MD [ACTIVE - CAN ADMIT] - (follow up with Dr on Thursday at 9am in the [place] office: [address], [place], [place] ) Mo Rascon MD [Primary Care Provider] - 1-2 Days (follow up in 1-2 weeks)
[2021-12-11 17:04] VITALS: BP 164/95; TEMP 97.6
--- NOTE | 2021-12-12 02:19 | OP ---
Surgeon: Ezekiel Chen MD Preoperative Diagnosis: Open wound of the left hand. Postoperative Diagnosis: Open wound of the left hand. Procedure Performed: Debridement of skin, subcutaneous tissue, simple closure of 3 cm wound. Anesthesia: General. Description Of Procedure: After the satisfactory induction of general anesthesia, left hand was prep ped with Betadine scrub and Betadine paint. Dry sterile drapes were placed in usual manner. A curet te was used to debride skin and subcu tissue as needed. The wound was jet lavage and irrigated with 3 L of dilute Betadine solution. Electrocautery was used for hemostasis. Wound was closed with 4-0 Prolene vertical mattress simple sutures, dressed with Xeroform and Kerlix. The patient tolerated th e procedure well and returned to Recovery. MARCELINO/ANNA Voice ID: [id number] Report ID: [id number]
== END 2021-12-11 19:40 | disposition home or self-care (01) | DRG 854 ==
LOC: ER 23:54 → ERHOLD 12-08 03:05 → 4TH 12-08 09:20
PROVIDERS: ADMIT Internal Medicine; ATTEND Internal Medicine
PROC: 0JDK0ZZ Extraction of Left Hand Subcutaneous Tissue and Fascia, Open Approach (ICD-10-PCS; principal; 2021-12-08 08:00)
PROC: 0JDK0ZZ Extraction of Left Hand Subcutaneous Tissue and Fascia, Open Approach (ICD-10-PCS; 2021-12-11)
DX: A41.9 Sepsis, unspecified organism (principal); L03.114 Cellulitis of left upper limb; E10.43 Type 1 diabetes mellitus with diabetic autonomic (poly)neuropathy; K31.84 Gastroparesis; I10 Essential (primary) hypertension; E78.5 Hyperlipidemia, unspecified; S61.452A Open bite of left hand, initial encounter; R79.89 Other specified abnormal findings of blood chemistry; Z20.822 Contact with and (suspected) exposure to COVID-19
CPT/HCPCS: 36415; 76705; 80053; 82947; 83605; 85025; 85610; 85730; 87040; 87070; 87075; 87205; 87811; 90471; 90714; 93005; 96365; 96375; 99283; 99285; J0171; J0330; J1100; J1170; J1815; J2250; J2405; J2543; J2550; J2704; J2710; J2795; J3010; J3480; J7030; J7120

== ENCOUNTER 2021-12-23 01:52 | Observation (INO) | payer OTHER ==
[2021-12-23 02:39] LABS: Absolute Lymphocytes (CBC) 2.3 K/uL (0.7-4.9); Hematocrit 40.8 % (39.6-49.0); Lymphocytes % 28.4 % (15.3-44.8); MCV 87.9 fL (80-100); MPV 7.6 fL (7.6-11.3); RBC Red Blood Cell Count 4.65 M/uL (4.33-5.43)
[2021-12-23 02:40] LABS: Protime INR 0.96
--- OUTSIDE RECORDS SUMMARY | 2021-12-23 02:43 | XMS REPORT | Continuity of Care Document ---
:1980 Author Organization [facility] [place] [facility] t Address [address] [place] [address] Care Team Providers Name Role Phone SANDRA CARRASCO Primary Care Physician Unavailable SANDRA CARRASCO Attending Clinician Unavailable Sandra Carrasco MD Attending Clinician TYREE JEFFERS Attending Clinician Unavailable VELIA COLLADO Attending Clinician Unavailable KNOW, DOES_NOT Attending Clinician Unavailable Wilmer William Attending Clinician Unavailable Galindo Chris Admitting Clinician Unavailable Wilmer William Admitting Clinician Unavailable Payers Payer Name Policy Type Policy Number Effective Date Expiration Date S ource GENERIC COMMERCIAL [id number] 2016 00:00:00 HUMANA CHOICE [id number] 2020 00:00:00 MEDICARE-PART B 5 [id number] 2021 00:00:00 Problems Condition Condition Condition Status Onset Resolution Last Treating Co mments Source Name Details Category Date Date Treatment Clinician Date Tachycardi Tachycardi Disease Active U nivers a a 1-24 ity of 00:00: [place] 00 Medical Branch Type 1 Type 1 Disease Active Univers diabetes diabetes 1-24 ity of mellitus mellitus 00:00: [place] with with 00 Medical diabetic diabetic Branch polyneurop polyneurop athy athy Ear pain, Ear pain, Disease Active Uni vers bilateral bilateral 1-24 ity of 00:00: [place] 00 Medical Branch Allergies, Adverse Reactions, Alerts Allergy Allergy Status Severity Reaction(s) Onset Inactive Treating Comm ents Source Name Type Date Date Clinician CLONIDIN DRUG Active Anxiety Univers E INGREDI -24 ity of 00:00: [place] 00 Medical Branch PROCHLOR DRUG Active Anxiety 0 Univers PERAZINE INGREDI 24 ity of 00:00: [place] 00 Medical Branch HYDROCOD DRUG Active Other-Cmnt 0 Univ ers ONE INGREDI 24 ity of 00:00: [place] 00 Medical Branch METOCLOP DRUG Active Other-Cmnt 0 Univ ers RAMIDE INGREDI 24 ity of 00:00: [place] 00 Medical Branch TRAMADOL DRUG Active Other-Cmnt 0 Univ ers INGREDI 24 ity of 00:00: [place] 00 Medical Branch Clonidin Propensi Active Anxiety 0 Unive rs e ty to -24 ity of adverse 00:00: [place] reaction Medical s Branch Prochlor Propensi Active Anxiety 0 Unive rs perazine ty to -24 ity of adverse 00:00: [place] reaction 00 Medical s Branch Hydrocod Propensi Active Other - See Severe U nivers one ty to comments 1-24 stomach ity of adverse 00:00: pain [place] reaction Medical s Branch Metoclop Propensi Active Other - See Involunt a Univers ramide ty to comments 1-24 ry Muscle ity o f adverse 00:00: Spasms [place] reaction Medical s Branch Tramadol Propensi Active Other - See 0 Severe U nivers ty to comments 1-24 stomach ity of adverse 00:00: pain [place] reaction Medical s Branch prochlor DA Active PA ITCHING [facility] perazine 3 [facility] prochlor DA Active PA [facility] perazine 3 [facility] 00:[facility]: [facility] haloperi DA Active U [facility] dol 01-21 [facility] 00:00: [facility] haloperi DA Active U STOMACH ACHE 0 [facility] dol 01-21 [facility] 00:00: Regiona 00 l [...] l metoclop DA Active U 2020-0 [facility] ramide 05-20 [facility] 00:[facility]: [facility] clonidin DA Active U ANXIETY 2020-0 [facility] e 05-20 [facility] 00:[facility]: [facility] metoclop DA Active U MUSCLE 2020-0 [facility] ramide SPASMS 05-20 [facility] 00:00: [facility] clonidin DA Active U 2018-0 [facility] e 01-16 [facility] 00:00: [facility] metoclop DA Active U 2018-0 [facility] ramide 01-16 [facility] 00:00: [facility] clonidin DA Active U ANXIETY 2018-0 [facility] e 01-16 [facility] 00:[facility]: [facility] metoclop DA Active U MUSCLE 2018-0 [facility] ramide SPASMS 01-16 [facility] 00:00: [facility] clonidin DA Active U 2018-0 [facility] e 11-25 [facility] 00:00: [facility] metoclop DA Active U 2018-0 [facility] ramide 11-25 [facility] 00:00: [facility] CLONIDIN Allergy Active Other 2017-[address] [facility] METOCLOP Allergy Active Other 2017-[address] [facility] [facility]IDE [facility] Social History Social Habit Start Date Stop Date Quantity Comments Source History [facility] [place] Alcohol Frequency Medical Branch History [facility] [place] Alcohol Std Drinks Medica l Branch History [facility] [place] Alcohol Binge Medical Bra [facility] Exposure to 2021-08-25 2021-09-04 Not sure [facility] SARS-CoV-2 (event) 00:00:00 13:09:00 Medica l Branch Alcohol Comment 2021-06-10 2021-06-10 seldomly [facility] 00:00:00 00:00:00 Medical Branch Tobacco use and 2021-05-25 2021-05-25 Never used [facility] exposure 00:00:00 00:00:00 Medical Branch Sex Ass[birth year] [facility] 00:00:00 00:00:00 Medical Branch Smoking Status Start Date Stop Date Source Never smoker [facility] Medical Branch Medications Ordered Filled Start Stop Current Ordering Indication Dosage Frequency Signature Comments Components Source Medication Medication Date Date Medication? Clinician (SIG) Name Name insulin Yes [id number] 30U inject 30 U nivers aspart 4-22 Units ity of RAPID 00:00: under the [place] (NOVOLOG 00 skin 3 Medical U-100 (three) Branch INSULIN times ASPART) 100 daily with unit/mL meals. injection zolpidem 10 Yes [id number] 10mg Take 1 U nivers mg tablet 4-20 tablet by ity o f 00:00: mouth at [place] 00 bedtime. Medical Branch nortriptyli Yes [id number] 50mg Take 1 Univers ne 50 mg 4-20 capsule by ity o f capsule 00:00: mouth at [place] 00 bedtime. Medical Branch insulin 2021- No [id number] 30U inject 30 Univers aspart 4-20 04-22 Units ity of RAPID 00:00: 00:00 under the [place] (NOVOLOG 00 :00 skin 3 Medical U-100 (three) Branch INSULIN times ASPART) 100 daily with unit/mL meals. injection Insulin 2021- No [id number] 50U inject 50 Univers Glargine 4-19 06-19 Units ity of (LANTUS 00:00: 04:59 under the [facility] [place] [facility] :00 skin 2 Medical U-100 (two) Branch INSULIN) times 100 unit/mL daily for (3 mL) 60 days. injection famotidine Yes 20mg Take 20 mg U nivers 20 mg 1-24 by mouth ity of tablet 09:08: before [place] [address] meals. Medical Branch rosuvastati Yes Take by Uni vers n 5 mg CpSP 1-24 mouth. ity of 09:08: [place] 44 Medical Branch lisinopriL Yes [id number] 5mg Take 1 U nivers 5 mg tablet 1-24 tablet by ity of 00:00: mouth [place] 00 daily. [facility] Immunizations Ordered Filled Immunization Date Status Comments Nico e Immunization Name Name SARS-COV-2 COVID-19 2020 Completed Unive rsity of MODERNA VACCINE 00:00:00 [facility] SARS-COV-2 COVID-19 2020-07-27 Completed Unive rsity of MODERNA VACCINE 00:00:00 [facility] Procedures Procedure Date / Time Performed Performing Clinician Nico e [id number] 2019-12-05 00:00:00 [facility] [place] [facility] Encounters Start End Encounter Admission Attending Care Care Encounter Source Date/Time Date/Time Type Type Clinicians Facility Department ID 2021-02-24 Inpatient UR [facility] [id number] [facility] 2021-10-09 2021-10-09 [facility] [id number] Univers 08:15:00 08:15:00 SANDRA [id number] [facility] 2021-10-09 2021-10-09 Outpatient R [facility] [id number] Univers 08:15:00 08:15:00 SANDRA [facility] 2021-09-06 2021-09-06 Telephone [facility] [id number] Univers 00:00:00 00:00:00 [facility] [id number] it y of Hardik TOLBERT [id number] Mati as MARK?BLEA [id number] Nh xiomara [address] MEDICAL OFFICE BUILDING 2021-09-03 2021-09-03 Outpatient ROCHELLE JEFFERS [id number] [place]le 08:45:00 08:45:00 TYREE nieves 2021-05-31 2021-05-31 Outpatient Piter COLLADO [facility] [id number] Univers 18:00:00 18:00:00 VELIA [facility] 2020-08-13 2020-08-13 Inpatient [facility] [id number] [facility] 18:08:39 18:08:39 [facility] 2020-06-14 2020-06-16 Inpatient [facility] ER [id number] [facility] 07:47:00 08:46:42 [facility] 2020-04-18 2020-04-20 Inpatient [facility] ER [id number] [facility] 10:19:00 06:19:59 [facility] 2020-01-22 2020-01-24 Inpatient [facility] ER [id number] [facility] 01:29:00 03:16:41 73 [facility] 2019-12-01 2020-01-03 Inpatient [facility] ER [id number] [facility] 00:13:00 17:12:43 80 [facility] 2019-12-19 2019-12-19 Outpatient KNOW, [facility] ADMI [id number] [facility] 23:24:00 23:24:00 DOES_NOT 13 [facility] 2019-10-15 2019-10-20 Inpatient EM Nataliia, [facility] TL2E [id number] [facility] 13:44:00 03:31:15 Wilmer [facility] 2019-06-13 2019-06-21 Inpatient [facility] ER [id number] [facility] 17:11:00 07:49:09 06 [facility] 2019-06-01 2019-06-08 Inpatient [facility] ER [id number] [facility] 13:21:00 15:53:07 51 [facility] 2019-05-22 2019-05-24 Inpatient [facility] ER [id number] [facility] 05:31:00 21:34:09 [facility] 2019-05-20 2019-05-23 Inpatient [facility] ER [id number] [facility] 22:15:00 21:46:45 07 [facility] Results Test Description Test Time Test Comments Results Result [facility] e Comments - CT ABD PELVIS 2020-08-13 W/CONT 19:35:00 [facility] 1980 Sex: M Name: RADHA CARPENTER FSED : 1980 Age/S: 39 / M [address] Unit #: [id number] [place]: [place] [address] Phys: Tony Noriega MD Acct: [id number] Dis Date: Status: PRE ER PHONE #: Exam Date: 08/13/2020 8882 FAX #: Reason: ABD PAIN EXAMS: CPT CODE: [id number] CT ABD PELVIS W/CONT 20998 CT SCAN OF THE ABDOMEN AND PELVIS [...] M [address] Unit #: [id number] Loc: [place] [address] Phys: Tony Noriega MD Acct: [id number] Dis Date: Status: PRE ER PHONE #: Exam Date: 08/13/20201923 FAX #: Reason: ABD PAIN EXAMS: CPT CODE: [id number] CT ABD PELVIS W/CONT 75108 <Continued> CC: Galindo Chris MD Technologist:Jamil Cox CT (R) CTDI: 10.45 DLP: 602.65 Trnscb Date/Time: 08/13/2020 (1934) t.SDR.MVT Orig Print D/T: S: 08/13/2020 (1937) PAGE [...] Suprapubic PainURINE SOURCE: CLEAN CATCH URINEBASIC METABOLIC [id number] 19:30:00 Test Item Value Reference Range Interpretation [...] RESULT BY1.21. [Automated mess age] The system [email or web address] generated this result transmitted ref erence range: >=60. Th e reference range was not used to int erpret this result as normal/abnormal . CREATININE (test code 0.91 mg/dl 0.70-1.30 N = CREAT) CALCIUM (test code = 9.6 mg/dL 8.5-10.1 N CA) LIVER [id number] 19:30:00 Test Item Value Reference Range Interpretation [...] 78 U/L 45-117 N code = ALKP) [id number] 19:30:00 Test Item Value Reference Range Interpretation Comments LIPASE (test code = LIP) 59 U/L 73-393 L [id number] 19:30:00 Test Item Value Reference Range Interpretation Comments TROPONIN-I (test 4 pg/ml See_Comment N HIGH SENSI TIVITY TROPONIN code = TROPI) MEASUREMENT/RA NGES -------Assay : Units : Keyonna l : Risk Stratification : High : : (Detectable : Limit(Suggestiv e of : AboveTNIH : : L imit) : sequential test ing) : 99th : : : : % ile ------FEMALES: pg/ml : <= 3.0 : 3.1 - 54 : >54 ------MALES : p g/ml : <= 3.0 : 3.1 - 78 : >78 ------- [Automa ghazala message] The system [email or web address] generated this result tra nsmitted reference range : <=3.0. The reference range was not used to interpret th is result as normal/abnormal . DRUGS OF ABUSE [id number] 19:08:00 Test Item Value Reference Range Interpretation [...] code = WAS TESTE D AT THE [facility]) LISTED CUTOFFS DRUG CLASS INIT IAL TEST LEVEL AMPHETAMINES 10 00 NG/MLBARBITURAT ES 200 NG/MLBENZODIAZE PIN ES 200 NG/MLCOCAINE METABOLITE 300 NG/MLMARIJUANA METABOLITE 50 NG/MLOPIATES 30 0 NG/MLPHENCYCLID INE 25 NG/ML UA RFLX MICROSCOPIC [id number] 19:05:00 Test Item Value Reference Range Interpretation [...] Suprapubic PainURINE SOURCE: CLEAN CATCH URINEBASIC METABOLIC [id number] 18:20:00 Test Item Value Reference Range Interpretation [...] -EVA N, MULTIPLY REPORT ED RESULT BY06.07. [Automated mess age] The system [email or web address] generated this result transmitted ref erence range: >=60. Th e reference range was not used to int erpret this result as normal/abnormal . CREATININE (test code 0.91 mg/dl 0.70-1.30 N = CREAT) CALCIUM (test code = 9.6 mg/dL 8.5-10.1 N CA) LIVER [id number] 18:20:00 Test Item Value Reference Range Interpretation [...] 78 U/L 45-117 N code = ALKP) [id number] 18:20:00 Test Item Value Reference Range Interpretation Comments LIPASE (test code = LIP) 59 U/L 73-393 L CBC W/AUTO [id number] 18:06:00 Test Item Value Reference Range Interpretation [...] (test NO NORMAL code = RBCM) LACTIC [id number] 18:05:00 Test Item Value Reference Range Interpretation Comments LACTIC ACID (test code = LACT) 2.0 mmol/l 0.4-2.0 N [id number] 17:57:00 Test Item Value Reference Range Interpretation Comments GLUBED (test code = GLUBED) 89 mg/dL 70-105 N [id number] 12:05:00 Test Item Value Reference Range Interpretation Comments GLUBED (test code = GLUBED) 314 mg/dL 70-105 H [id number] 12:04:00 Test Item Value Reference Range Interpretation Comments GLUBED (test code = GLUBED) 371 mg/dL 70-105 H LACTIC [id number] 11:41:00 Test Item Value Reference Range Interpretation Comments LACTIC ACID (test code = LACT) 1.5 mmol/l 0.4-2.0 N - CT LOWER EXTRM W/O C [id number] 11:30:00 [facility] 1980 Sex: M Name: RADHA CARPENTER Angie ED : 1980 Age/S: 39 / M [address] Unit #: [id number] Loc: [place] [address] Phys: Tony Noriega MD Acct: [id number] Dis Date: Status: REG ER PHONE #:Exam Date: 06/14/2020 1011 FAX #: Reason: R FOOT SWELLING EXAMS: CPT CODE: [id number] [place] W/[place] [address] - CT LOWER EXTRM W/O C RT [...] available. FINDINGS: 1 cm ulcer plantar aspect ofthe forefoot undermining the 3rd and 4th metatarsal heads. Extensive soft tissue swelling forefoot with osseous erosion of the 5th digit proximal and distal phalanx centered at the IP joint. No additional sites of osseous erosion identified. Recommend Atherosclerotic plaque. IMPRESSION: 1 cm ulceration plantar aspect of the forefoot undermining the 3rd and 4th metatarsal head with findings of cellulitis and osteomyelitis of the 5th digit surrounding the DIP joint. No radiopaque foreign body. No soft tissue gas. Advanced atherosclerotic plaque. Location: V20 at 1130 Reported and signed by: JIMMIE FERNANDEZ M.D. PAGE 1 Signed Report (CONTINUED) Name: RADHA CARPENTER FSED : 1980 Age/S: 39 / M [address] Unit #: [id number] Loc: [place] [address] Phys: Tony Noriega MD Acct: [id number] Dis Date: Status: REG ER PHONE #: Exam Date: 06/14/2020 1017 FAX #: Reason: R FOOT SWELLING EXAMS: CPT CODE: [id number] [place]TR[place] W/[place] [address] <Continued> CC: Tony Noriega MD; Galindo Chris MD Samuel hnologist:RT Anthony (R) CT CTDI: 10.53 DLP: 350.96 Trnscb Date/Time: 06/14/2020 (1130) [email or web address].[email or web address] Orig Print D/T: S: 06/14/2020 (8793) PAGE 2 Signed ReportDRUGS OF ABUSE [id number] 10:53:00 Test Item Value Reference Range Interpretation [...] BACK BY DEIRDRE CORRALES 10 52 06/14/20. Rodriguez,[place] ia POSITIVE URINE DRUG SCREEN MOO T RESULTS ARE UNCONFIRMED.REF ERR ED CONFIRMATORY TESTING AVAILAB LE UPON PHYSICIANREQUES T. UR PHENCYCLIDINE NEGATIVE ng/ml NEGATIVE THE URINE SPECIMEN (PCP) (test code = WAS TESTE D AT THE [facility]) LISTED CUTOFFS DRUG CLASS INIT IAL TEST LEVEL AMPHETAMINES 10 00 NG/MLBARBITURAT ES 200 NG/MLBENZODIAZE PIN ES 200 NG/MLCOCAINE METABOLITE 300 NG/MLMARIJUANA METABOLITE 50 NG/MLOPIATES 30 0 NG/MLPHENCYCLID INE 25 NG/ML - CT ABD PELVIS [id number] 09:45:00 [facility] : 1980 Sex: M Name: RADHA CARPENTER FSED : 1980 Age/S: 39 / M [address] Unit #: [id number] Loc: [place] [address] Phys: Tony Noriega MD Acct: [id number] Dis Date: Status: PRE ER PHONE #: Exam Date: 06/14/202018 FAX #: Reason: ABD PAIN EXAMS: CPT CODE: [id number] CT ABD PELVIS W/CONT 67849 CT abdomen and pelvis with contrast 06/14/2020 CLINICAL INDICATION: Abdominal pain COMPARISON: None available LOCATION: W1 TECHNIQUE: Helical CT axial imaging of the abdomen and pelvis was performed following the administration of intravenous contrast. Coronal and sagittal reformatted images were obtained. One or more of the following dose reduction techniques were used: Automated exposure control, adjustment of the mA and/or kV according to patient size, and/or utilization of iterative reconstruction technique. FINDINGS: Lower thorax: Unremarkable. Hepatobiliary: Probable hepatosteatosis. Gallbladder: Surgically absent. Spleen: Unremarkable. Pancreas: Unremarkable. Kidneys: Unremarkable. Adrenals: Unremarkable. Lymph nodes: Unremarkable. Vessels: Mild arteriosclerosis. Peritoneum/retroperitoneum: Unremarkable. Pelvic organs/bladder: Unremarkable. Bowel: No focal wall thickening or evidencefor obstruction. Nondilated appendix. Indwelling gastric stimulator. Bones/soft tissues: Chronic appearing degenerative changes in the skeleton. IMPRESSION: No acute-appearing imaging abnormality. at 0945 Reported and signed by: AUTUMN TRAN M.D. PAGE 1 Signed Report (CONTINUED) Name: RADHA CARPENTER FSED :1980 Age/S: 39 / M [address] Unit #: [id number] Loc: [place] [address] Phys: Tony Noriega MD Acct: [id number] Dis Date: Status: PRE ER PHONE #: Exam Date: 06/14/2020 0918 FAX #:Reason: ABD PAIN EXAMS: CPT CODE: [id number] CT ABD PELVIS W/CONT 85494 <Continued> CC: Tony Noriega MD; Galindo Chris MD Technologist:Fede Caballero, (R) CT CTDI: 10.33 DLP: 549.38 Trnscb Date/Time: 06/14/2020 (0945) [email or web address] Orig Print D/T: S: 06/14/2020 (0919) PAGE 2 Signed ReportUA RFLX MICROSCOPIC [id number] 09:14:00 Test Item Value Reference Range Interpretation [...] Dysuria/FrequencyURINE SOURCE: CLEAN CATCH URINEUA RFLX MICROSCOPIC [id number] 09:12:00 Test Item Value Reference Range Interpretation [...] Indication for culture: Dysuria/FrequencyURINE SOURCE: CLEAN CATCH URINEBASIC METABOLIC [id number] 08:48:00 Test Item Value Reference Range Interpretation [...] = 10.1 mg/dL 8.5-10.1 N CA) LIVER [id number] 08:48:00 Test Item Value Reference Range Interpretation [...] 84 U/L 45-117 N code = ALKP) [id number] 08:48:00 Test Item Value Reference Range Interpretation Comments LIPASE (test code = LIP) 78 U/L 73-393 N [id number] 08:48:00 Test Item Value Reference Range Interpretation Comments TROPONIN-I (test <0.017 ng/ml 0.00-0.045 N GUIDELINES: 0.08 - 0.09 code = TROPI) Indeterminate0 .10 Risk Stratification Limit: Suggest sequent ial testing0.60 - 1 .50 AMI cutoff: Myocard ial Injury by WHO criteria BASIC METABOLIC [id number] 08:46:00 Test Item Value Reference Range Interpretation [...] = 10.1 mg/dL 8.5-10.1 N CA) LIVER [id number] 08:46:00 Test Item Value Reference Range Interpretation [...] 84 U/L 45-117 N code = ALKP) [id number] 08:46:00 Test Item Value Reference Range Interpretation Comments LIPASE (test code = LIP) U/L 73-393 [id number] 08:46:00 Test Item Value Reference Range Interpretation Comments TROPONIN-I (test code = TROPI) ng/ml 0.00-0.045 PROTHROMBIN [id number] 08:45:00 Test Item Value Reference Interpretation Comments Range PROTHROMBIN TIME 9.6 SECONDS 8.7-11.9 N THERAPEUTIC LEVEL: 1.5 TO PATIENT (test code 1.9 TIMES NORMAL RANGE = PTP) INTERNATIONAL 0.9 Recommended Th erapeutic NORMAL RATIO (test PT Ratios For Oral code = INR) AnticoagulantTh erapy. CONDITION INT'L NORMALIZED PT RATIO Prophylaxis of venous thrombosis 2.0 - 3.0in high risk medic al or surgicalpatient s, treatment of venousthrombosi s, prevention of e mbolism. Prevention of r ecurrent embolism, 2.5 - 3.5or treatment of pa tients with mechanical prosthetic heart valves. THROMBOPLASTIN TIME [id number] 08:45:00 Test Item Value Reference Range Interpretation Comments THROMBOPLASTIN TIME PARTIAL 25.4 seconds 22.8-34.4 N (test code = PTT) CBC W/AUTO [id number] 08:30:00 Test Item Value Reference Range Interpretation [...] (test NO NORMAL code = RBCM) LACTIC [id number] 08:29:00 Test Item Value Reference Range Interpretation Comments LACTIC ACID (test 2.5 mmol/l 0.4-2.0 H RESULTS C ALLED TO code = LACT) TONY Slade MD AT 0829 06/14/20. Berny Landaverde [id number] 07:55:00 Test Item Value Reference Range Interpretation Comments GLUBED (test code = GLUBED) 367 mg/dL 70-105 H URINALYSIS W REFLEX [id number] 11:06:00 Test Item Value Reference Range Interpretation [...] SPERMU) FEW /hpf NEGATIVE A BASIC METABOLIC [id number] 11:02:00 Test Item Value Reference Range Interpretation [...] = 10.7 mg/dL 8.5-10.1 H CA) LIVER [id number] 11:02:00 Test Item Value Reference Range Interpretation [...] 82 U/L 50-136 N code = ALKP) [id number] 11:02:00 Test Item Value Reference Range Interpretation Comments LIPASE (test code = LIP) 56 U/L 73-393 L [id number] 11:02:00 Test Item Value Reference Range Interpretation Comments TROPONIN-I (test <0.015 ng/ml 0.00-0.045 N GUIDELINES: 0.08 - 0.09 code = TROPI) Indeterminate0 .10 Risk Stratification Limit: Suggest sequent ial testing0.60 - 1 .50 AMI cutoff: Myocard ial Injury by WHO criteria BASIC METABOLIC [id number] 11:01:00 Test Item Value Reference Range Interpretation [...] = 10.7 mg/dL 8.5-10.1 H CA) LIVER [id number] 11:01:00 Test Item Value Reference Range Interpretation [...] TOTAL (test U/L 50-136 code = ALKP) [id number] 11:01:00 Test Item Value Reference Range Interpretation Comments LIPASE (test code = LIP) 56 U/L 73-393 L [id number] 11:01:00 Test Item Value Reference Range Interpretation Comments TROPONIN-I (test code = TROPI) ng/ml 0.00-0.045 BASIC METABOLIC [id number] 11:00:00 Test Item Value Reference Range Interpretation [...] = 10.7 mg/dL 8.5-10.1 H CA) LIVER [id number] 11:00:00 Test Item Value Reference Range Interpretation [...] TOTAL (test U/L 50-136 code = ALKP) [id number] 11:00:00 Test Item Value Reference Range Interpretation Comments LIPASE (test code = LIP) 56 U/L 73-393 L [id number] 11:00:00 Test Item Value Reference Range Interpretation Comments TROPONIN-I (test code = TROPI) ng/ml 0.00-0.045 BASIC METABOLIC [id number] 10:59:00 Test Item Value Reference Range Interpretation [...] = 10.7 mg/dL 8.5-10.1 H CA) LIVER [id number] 10:59:00 Test Item Value Reference Range Interpretation [...] TOTAL (test U/L 50-136 code = ALKP) [id number] 10:59:00 Test Item Value Reference Range Interpretation Comments LIPASE (test code = LIP) 56 U/L 73-393 L [id number] 10:59:00 Test Item Value Reference Range Interpretation Comments TROPONIN-I (test code = TROPI) ng/ml 0.00-0.045 BASIC METABOLIC [id number] 10:58:00 Test Item Value Reference Range Interpretation [...] = CA) 10.7 mg/dL 8.5-10.1 H LIVER [id number] 10:58:00 Test Item Value Reference Range Interpretation [...] TOTAL (test U/L 50-136 code = ALKP) [id number] 10:58:00 Test Item Value Reference Range Interpretation Comments LIPASE (test code = LIP) 56 U/L 73-393 L [id number] 10:58:00 Test Item Value Reference Range Interpretation Comments TROPONIN-I (test code = TROPI) ng/ml 0.00-0.045 BASIC METABOLIC [id number] 10:57:00 Test Item Value Reference Range Interpretation [...] = CA) 10.7 mg/dL 8.5-10.1 H LIVER [id number] 10:57:00 Test Item Value Reference Range Interpretation [...] TOTAL (test U/L 50-136 code = ALKP) [id number] 10:57:00 Test Item Value Reference Range Interpretation Comments LIPASE (test code = LIP) 56 U/L 73-393 L [id number] 10:57:00 Test Item Value Reference Range Interpretation Comments TROPONIN-I (test code = TROPI) ng/ml 0.00-0.045 BASIC METABOLIC [id number] 10:53:00 Test Item Value Reference Range Interpretation [...] (test code = CA) mg/dL 8.5-10.1 LIVER [id number] 10:53:00 Test Item Value Reference Range Interpretation Comments TOTAL PROTEIN (test code = PROT) g/dl 6.4-8.2 ALBUMIN (test code = ALB) g/dl 3.4-5.0 BILIRUBIN TOTAL (test code = BILT) mg/dl 0.2-1.0 BILIRUBIN DIRECT (test code = BILD) mg/dl 0.0-0.4 SGOT/AST (test code = AST) U/L 15-37 SGPT/ALT (test code = ALT) U/L 12-78 ALKALINE PHOSPHATASE TOTAL (test code U/L 50-136 = ALKP) [id number] 10:53:00 Test Item Value Reference Range Interpretation Comments LIPASE (test code = LIP) U/L 73-393 [id number] 10:53:00 Test Item Value Reference Range Interpretation Comments TROPONIN-I (test code = TROPI) ng/ml 0.00-0.045 CBC W/AUTO [id number] 10:43:00 Test Item Value Reference Range Interpretation [...] code = 0.00 K/mm3 0.0-0.1 N NRBC#) [id number] 10:39:00 Test Item Value Reference Range Interpretation Comments GLUBED (test code = 228 mg/dL 70-105 H Performe d by certified GLUBED) cascade operator at [facility] BASIC METABOLIC [id number] 02:26:00 Test Item Value Reference Range Interpretation [...] REPORT ED RESULT BY1.. CREATININE (test code 1.06 mg/dl 0.70-1.30 N = CREAT) CALCIUM (test code = 10.3 mg/dL 8.5-10.1 H CA) LIVER [id number] 02:26:00 Test Item Value Reference Range Interpretation [...] 79 U/L 45-117 N code = ALKP) [id number] 02:26:00 Test Item Value Reference Range Interpretation Comments LIPASE (test code = LIP) 138 U/L 73-393 N PROTHROMBIN [id number] 02:16:00 Test Item Value Reference Interpretation Comments Range PROTHROMBIN TIME 9.2 SECONDS 8.7-11.9 N THERAPEUTIC LEVEL: 1.5 TO PATIENT (test code 1.9 TIMES NORMAL RANGE = PTP) INTERNATIONAL 0.9 Recommended Th erapeutic NORMAL RATIO (test PT Ratios For Oral code = INR) AnticoagulantTh erapy. CONDITION INT'L NORMALIZED PT RATIO Prophylaxis of venous thrombosis 2.0 - 3.0in high risk medic al or surgicalpatient s, treatment of venousthrombosi s, prevention of e mbolism. Prevention of r ecurrent embolism, 2.5 - 3.5or treatment of pa tients with mechanical prosthetic heart valves. THROMBOPLASTIN TIME [id number] 02:16:00 Test Item Value Reference Range Interpretation Comments THROMBOPLASTIN TIME PARTIAL 24.8 seconds 22.8-34.4 N (test code = PTT) CBC W/AUTO [id number] 02:03:00 Test Item Value Reference Range Interpretation [...] (test NO NORMAL code = RBCM) LACTIC [id number] 02:02:00 Test Item Value Reference Range Interpretation Comments LACTIC ACID (test code = LACT) 2.0 mmol/l 0.4-2.0 N [id number] 20:16:00 Test Item Value Reference Range Interpretation Comments GLUBED (test code = 189 mg/dL 70-105 H Performe d by certified GLUBED) cascade operator at [facility]2020-07-31 16:43:00 Test Item Value Reference Range Interpretation Comments GLUBED (test code = 197 mg/dL 70-105 H Performe d by certified GLUBED) cascade operator at [facility]2020-07-31 11:20:00 Test Item Value Reference Range Interpretation Comments GLUBED (test code = 289 mg/dL 70-105 H Performe d by certified GLUBED) cascade operator at [facility]2020-07-31 07:36:00 Test Item Value Reference Range Interpretation Comments GLUBED (test code = 154 mg/dL 70-105 H Performe d by certified GLUBED) cascade operator at [facility]2020-07-30 20:42:00 Test Item Value Reference Range Interpretation Comments GLUBED (test code = 155 mg/dL 70-105 H Performe d by certified GLUBED) cascade operator at [facility]2020-07-30 15:46:00 Test Item Value Reference Range Interpretation Comments GLUBED (test code = 201 mg/dL 70-105 H Performe d by certified GLUBED) cascade operator at [facility] [id number] 11:32:00 Test Item Value Reference Range Interpretation Comments GLUBED (test code = 252 mg/dL 70-105 H Performe d by certified GLUBED) cascade operator at [facility] [id number] 08:37:00 Test Item Value Reference Range Interpretation Comments GLUBED (test code = 225 mg/dL 70-105 H Performe d by certified GLUBED) cascade operator at [facility] [id number] 04:12:00 Test Item Value Reference Range Interpretation Comments CREATININE (test code = CREAT) 1.00 mg/dL 0.67-1.17 N CBC W/AUTO [id number] 04:03:00 Test Item Value Reference Range Interpretation [...] code = 0.00 K/mm3 0.0-0.1 N NRBC#) [id number] 19:33:00 Test Item Value Reference Range Interpretation Comments GLUBED (test code = 236 mg/dL 70-105 H Performe d by certified GLUBED) cascade operator at [facility]2020-07-29 16:33:00 Test Item Value Reference Range Interpretation Comments GLUBED (test code = 225 mg/dL 70-105 H Performe d by certified GLUBED) cascade operator at [facility]2020-07-29 11:29:00 Test Item Value Reference Range Interpretation Comments GLUBED (test code = 298 mg/dL 70-105 H Performe d by certified GLUBED) cascade operator at [facility]2020-07-29 08:00:00 Test Item Value Reference Range Interpretation Comments GLUBED (test code = 279 mg/dL 70-105 H Performe d by certified GLUBED) cascade operator at [facility]2020-07-28 21:36:00 Test Item Value Reference Range Interpretation Comments GLUBED (test code = 243 mg/dL 70-105 H Performe d by certified GLUBED) cascade operator at [facility]2020-07-28 16:54:00 Test Item Value Reference Range Interpretation Comments GLUBED (test code = 227 mg/dL 70-105 H Performe d by certified GLUBED) cascade operator at [facility]2020-07-28 12:06:00 Test Item Value Reference Range Interpretation Comments GLUBED (test code = 292 mg/dL 70-105 H Performe d by certified GLUBED) cascade operator at [facility]2020-07-28 07:21:00 Test Item Value Reference Range Interpretation Comments GLUBED (test code = 341 mg/dL 70-105 H Performe d by certified GLUBED) cascade operator at [facility]2020-07-27 23:10:00 Test Item Value Reference Range Interpretation Comments GLUBED (test code = 318 mg/dL 70-105 H Performe d by certified GLUBED) cascade operator at [facility]2020-07-27 17:57:00 Test Item Value Reference Range Interpretation Comments GLUBED (test code = 317 mg/dL 70-105 H Performe d by certified GLUBED) cascade operator at [facility]2020-07-27 11:45:00 Test Item Value Reference Range Interpretation Comments GLUBED (test code = 318 mg/dL 70-105 H Performe d by certified GLUBED) cascade operator at [facility]2020-07-27 07:22:00 Test Item Value Reference Range Interpretation Comments GLUBED (test code = 305 mg/dL 70-105 H Performe d by certified GLUBED) cascade operator at [facility]2020-07-26 20:16:00 Test Item Value Reference Range Interpretation Comments GLUBED (test code = 202 mg/dL 70-105 H Performe d by certified GLUBED) cascade operator at [facility]2020-07-26 16:57:00 Test Item Value Reference Range Interpretation Comments GLUBED (test code = 298 mg/dL 70-105 H Performe d by certified GLUBED) cascade operator at [facility]2020-07-26 10:12:00 Test Item Value Reference Range Interpretation Comments GLUBED (test code = 396 mg/dL 70-105 H Performe d by certified GLUBED) cascade operator at [facility]2020-07-25 20:52:00 Test Item Value Reference Range Interpretation Comments GLUBED (test code = 276 mg/dL 70-105 H Performe d by certified GLUBED) cascade operator at [facility]2020-07-25 16:20:00 Test Item Value Reference Range Interpretation Comments GLUBED (test code = 230 mg/dL 70-105 H Performe d by certified GLUBED[facility] Test Item Value Reference Range Interpretation Comments GLUBED (test code = 299 mg/dL 70-105 H Performe d by certified GLUBED) cascade operator at [facility]2020-07-25 07:26:00 Test Item Value Reference Range Interpretation Comments GLUBED (test code = 278 mg/dL 70-105 H Performe d by certified GLUBED) cascade operator at [facility]2020-07-24 20:44:00 Test Item Value Reference Range Interpretation Comments GLUBED (test code = 196 mg/dL 70-105 H Performe d by certified GLUBED) cascade operator at [facility]2020-07-24 16:17:00 Test Item Value Reference Range Interpretation Comments GLUBED (test code = 274 mg/dL 70-105 H Performe d by certified GLUBED) cascade operator at [facility]2020-07-24 11:38:00 Test Item Value Reference Range Interpretation Comments GLUBED (test code = 280 mg/dL 70-105 H Performe d by certified GLUBED) cascade operator at [facility]2020-07-24 07:37:00 Test Item Value Reference Range Interpretation Comments GLUBED (test code = 235 mg/dL 70-105 H Performe d by certified GLUBED) cascade operator at [facility]2020-07-23 22:34:00 Test Item Value Reference Range Interpretation Comments GLUBED (test code = 217 mg/dL 70-105 H Performe d by certified GLUBED) cascade operator at [facility]2020-07-23 18:05:00 Test Item Value Reference Range Interpretation Comments GLUBED (test code = 264 mg/dL 70-105 H Performe d by certified GLUBED) cascade operator at [facility]2020-07-23 11:09:00 Test Item Value Reference Range Interpretation Comments GLUBED (test code = 273 mg/dL 70-105 H Performe d by certified GLUBED) cascade operator at [facility] COMPREHENSIVE METABOLIC [id number] 08:14:00 Test Item Value Reference Range Interpretation [...] TOTAL (test code = ALKP) COMPREHENSIVE METABOLIC [id number] 08:13:00 Test Item Value Reference Range Interpretation [...] TOTAL (test code = ALKP) COMPREHENSIVE METABOLIC [id number] 08:12:00 Test Item Value Reference Range Interpretation [...] TOTAL (test code = ALKP) COMPREHENSIVE METABOLIC [id number] 08:11:00 Test Item Value Reference Range Interpretation [...] TOTAL (test code = ALKP) COMPREHENSIVE METABOLIC [id number] 08:09:00 Test Item Value Reference Range Interpretation [...] U/L 50-136 code = ALKP) COMPREHENSIVE METABOLIC [id number] 08:08:00 Test Item Value Reference Range Interpretation [...] U/L 50-136 code = ALKP) COMPREHENSIVE METABOLIC [id number] 08:03:00 Test Item Value Reference Range Interpretation [...] U/L 50-136 code = ALKP) CBC W/AUTO [id number] 07:55:00 Test Item Value Reference Range Interpretation [...] code = 0.00 K/mm3 0.0-0.1 N NRBC#) [id number] 19:39:00 Test Item Value Reference Range Interpretation Comments GLUBED (test code = 239 mg/dL 70-105 H Performe d by certified GLUBED) cascade operator at [facility] CARDIO C REACTIVE PROTEIN [id number] 16:49:00 Test Item Value Reference Range Interpretation Comments CARDIO C REACTIVE 54.80 0.0-3.0 H CCRP MG/L RISK ACCORDING TO PROTEIN HS (test code AHA/CD C GUIDELINES--------- = CCRP) ---------<1.0 L OW CARDIOVASCULAR RISK1.0 - 3.0 AVERAGE CA RDIOVASCULAR RISK3.1 - 10.0 HIGH CARDIOVASCULAR RISK>10.0 PERSISTENT ELEV ATIONS MAY REPRESENT NON-CARDIOVASCU LAR INFLAMMATION SED [id number] 16:47:00 Test Item Value Reference Range Interpretation Comments SED RATE (test code = SEDW) 134 mm/hr 0-15 H [id number] 16:11:00 Test Item Value Reference Range Interpretation Comments GLUBED (test code = 162 mg/dL 70-105 H Performe d by certified GLUBED) cascade operator at [facility]2020-07-22 11:20:00 Test Item Value Reference Range Interpretation Comments GLUBED (test code = 276 mg/dL 70-105 H Performe d by certified GLUBED) cascade operator at [facility]2020-07-22 07:12:00 Test Item Value Reference Range Interpretation Comments GLUBED (test code = 238 mg/dL 70-105 H Performe d by certified GLUBED) cascade operator at [facility]2020-07-21 21:21:00 Test Item Value Reference Range Interpretation Comments GLUBED (test code = 212 mg/dL 70-105 H Performe d by certified GLUBED) cascade operator at [facility]2020-07-21 16:44:00 Test Item Value Reference Range Interpretation Comments GLUBED (test code = 236 mg/dL 70-105 H Performe d by certified GLUBED) cascade operator at [facility] [id number] 12:01:00 RUN DATE: 12/06/19 [facility] LAB LIVE PAGE 1 RUN TIME: 1201 Specimen Inquiry RUN USER: INTERFACE PATIENT: RADHA CARPENTER LOC: [address] #: [id number] AGE/SX: 39/M ROOM: [facility] RE12/01/19REG DR: Joe Wolf MD : 84 BED: A DIS: STATUS: ADM IN TLOC: SPEC #: [id number] RECD: 12/05/19 STATUS: [facility] #: [id number] JOEL: 12/05/[address] [facility] [address]: Simone Cabrera ENTERED: 12/05/19 SP TYPE: SURGICAL OTHR DR: [...] cassette. COPIES TO: Rosalina Morales DPM [address] [place] [address] Simone Cabrera [address] [place] [address] [phone] Ld Rutherford MD [address] [place], [place] [id number] Galindo Chris MD [address] [place], [place] [id number] PROCEDURES: SURG/PATH GROSS (12/05/19) TISSUES: FOOT - RIGHT FOOT TISSUE CONTINUED ON NEXT PAGE RUN DATE: 12/06/19 [facility] LIVE PAGE 2 RUN TIME: 1201 Specimen Inquiry RUN USER: INTERFACE SPEC #: [id number] PATIENT: RADHA CARPENTER #[id number] (Continued) Surgery information Surgery date 12/05/19 Surgeon(s): SIMONE BLANK Pre-Op Dx: RIGHT FOOT ULCER Post-Op Dx: SAME Signed SIGNATURE ON FILE Simone Suarez 12/06/19 1201 END OF REPORT GLUBED 2019-12-06 11:54:00 Test Item Value Reference Range Interpretation Comments GLUBED (test code = 300 mg/dL 70-105 H Performe d by certified GLUBED) cascade operator at [facility] BASIC METABOLIC [id number] 11:28:00 Test Item Value Reference Range Interpretation [...] 8.6 mg/dL 8.5-10.1 N CA) BASIC METABOLIC [id number] 11:25:00 Test Item Value Reference Range Interpretation [...] CA) 8.6 mg/dL 8.5-10.1 N BASIC METABOLIC [id number] 11:24:00 Test Item Value Reference Range Interpretation [...] CA) 8.6 mg/dL 8.5-10.1 N CBC W/AUTO [id number] 09:58:00 Test Item Value Reference Range Interpretation [...] code = INCREASED ADEQUATE PLTEST) BASIC METABOLIC [id number] 08:57:00 Test Item Value Reference Range Interpretation [...] code = CA) mg/dL 8.5-10.1 CBC W/AUTO [id number] 08:42:00 Test Item Value Reference Range Interpretation [...] code = 0.00 K/mm3 0.0-0.1 N NRBC#) [id number] 07:57:00 Test Item Value Reference Range Interpretation Comments GLUBED (test code = 330 mg/dL 70-105 H Performe d by certified GLUBED) cascade operator at [facility]2020-07-20 22:44:00 Test Item Value Reference Range Interpretation Comments GLUBED (test code = 284 mg/dL 70-105 H Performe d by certified GLUBED) cascade operator at [facility]2020-07-20 18:22:00 Test Item Value Reference Range Interpretation Comments GLUBED (test code = 269 mg/dL 70-105 H Performe d by certified GLUBED) cascade operator at [facility]2020-07-20 13:13:00 Test Item Value Reference Range Interpretation Comments GLUBED (test code = 202 mg/dL 70-105 H Performe d by certified GLUBED) cascade operator at [facility] BASIC METABOLIC [id number] 09:04:00 Test Item Value Reference Range Interpretation [...] 9.2 mg/dL 8.5-10.1 N CA) BASIC METABOLIC [id number] 09:03:00 Test Item Value Reference Range Interpretation [...] CA) 9.2 mg/dL 8.5-10.1 N BASIC METABOLIC [id number] 09:01:00 Test Item Value Reference Range Interpretation [...] = CA) 9.2 mg/dL 8.5-10.1 N PROTHROMBIN [id number] 09:01:00 Test Item Value Reference Interpretation Comments Range PROTHROMBIN TIME 9.9 SECONDS 8.7-12.1 N THERAPEUTIC LEVEL: 1.5 TO PATIENT (test code 1.9 TIMES NORMAL RANGE = PTP) INTERNATIONAL 0.9 Recommended Th erapeutic NORMAL RATIO (test PT Ratios For Oral code = INR) AnticoagulantTh erapy. CONDITION INT'L NORMALIZED PT RATIO Prophylaxis of venous thrombosis 2.0 - 3.0in high risk medic al or surgicalpatient s, treatment of venousthrombosi s, prevention of e mbolism. Prevention of r ecurrent embolism, 2.5 - 3.5or treatment of pa tients with mechanical prosthetic heart valves. LAB ANTICOAGULANT QUERY UNKNOWNTHROMBOPLASTIN TIME [id number] 09:01:00 Test Item Value Reference Range Interpretation Comments THROMBOPLASTIN TIME PARTIAL 29.3 seconds 22.8-34.4 N (test code = PTT) LAB ANTICOAGULANT QUERY UNKNOWNBASIC METABOLIC [id number] 08:46:00 Test Item Value Reference Range Interpretation [...] code = CA) mg/dL 8.5-10.1 CBC W/AUTO [id number] 08:33:00 Test Item Value Reference Range Interpretation [...] code = 0.00 K/mm3 0.0-0.1 N NRBC#) [id number] 08:03:00 Test Item Value Reference Range Interpretation Comments GLUBED (test code = 240 mg/dL 70-105 H Performe d by certified GLUBED) cascade operator at [facility] [id number] 21:40:00 Test Item Value Reference Range Interpretation Comments GLUBED (test code = 208 mg/dL 70-105 H Performe d by certified GLUBED) cascade operator at [facility] [id number] 17:39:00 Test Item Value Reference Range Interpretation Comments GLUBED (test code = 250 mg/dL 70-105 H Performe d by certified GLUBED) cascade operator at [facility] COVID 19 Asymptomatic IH [id number] 17:18:00 Test Item Value Reference Interpretation Comments Range COVID 19 Presumed NEGATIVE SEBASTIEN COVID-19 Asymptomatic IH AG Negative --------- ------Results (test code = are for the COVNONPUIAG) identification of BHVL-FbZ-5esdgt ocapsid protein antigen . Antigen is generallydet [...] nd Drug Administration' s Emergency Use Authorization. [id number] 12:09:00 Test Item Value Reference Range Interpretation Comments GLUBED (test code = 191 mg/dL 70-105 H Performe d by certified GLUBED) cascade operator at [facility] [id number] 09:54:00 Test Item Value Reference Range Interpretation Comments GLYCOSYLATED 11.3 % <5.7 H SUGGESTED DIAG NOSIS HEMOGLOBIN (HA1C) INTERPRETA TION (test code = GLYHGB) ------- Nor mal: <5.7% Prediabet es: 5.7 - 6.4% Diabetic : >/= 6.5%* DUE TO IN THOD REVISION, REFER ENCE RANGE HAS BEEN UPDATED * ESTIMATED AVERAGE 278 MG/DL <126 GLUCOSE (test code = EAG) BASIC METABOLIC [id number] 09:16:00 Test Item Value Reference Range Interpretation [...] 9.5 mg/dL 8.5-10.1 N CA) CBC W/AUTO [id number] 08:55:00 Test Item Value Reference Range Interpretation [...] code = 0.00 K/mm3 0.0-0.1 N NRBC#) [id number] 08:21:00 Test Item Value Reference Range Interpretation Comments GLUBED (test code = 228 mg/dL 70-105 H Performe d by certified GLUBED) cascade operator at [facility] [id number] 21:14:00 Test Item Value Reference Range Interpretation Comments GLUBED (test code = 178 mg/dL 70-105 H Performe d by certified GLUBED) cascade operator at [facility] [id number] 17:11:00 Test Item Value Reference Range Interpretation Comments GLUBED (test code = 149 mg/dL 70-105 H Performe d by certified GLUBED) cascade operator at [facility] - [place] BONE 3 [id number] 15:01:00 FAX: Galindo Abdullahi MD [phone] [place]: [facility] St: ADM Name: RADHA CARPENTER [facility] : 1980 Age/S: 39/M [address] [facility] Unit #: [id number] Loc: [place] [address] Phys: Joe Wolf MD Acct: [id number] Dis Date: Status: ADM IN PHONE #: [phone] Exam Date: 12/02/2019 1448 FAX #: [phone] Reason: DIABETIC FOOT/UNABLE TO HAVE MRI EXAMS: CPT CODE: [id number] [place] BONE 3PHASE 47554 RADIOPHARMACEUTICAL: 20 mCi Tc-99m -MDP IV Correlated [...] delayed phase imaging involving the lateral malleolus ofthe left foot. IMPRESSION: 1. Right foot cellulitis with osteomyelitis involving the right foot third through fifth digits. 2. Increased radiotracer activity of the left ankle lateral malleolus concerning for osteomyelitis. Consider correlation with left ankle radiographs. Location: V20 at 1501 Reported and signed by: JIMMIE FERNANDEZ M.D. CC: Galindo Chris MD Technologist: Wilmer Arboleda,BSNMT,GLASS BEVELER,RTR Trnscrd Date/Time/By: 12/03/2019 (1501) : By: [email or web address] Orig Print D/T: S: 12/03/2019 (4693) PAGE 1 Signed [id number] 12:21:00 Test Item Value Reference Range Interpretation Comments GLUBED (test code = 149 mg/dL 70-105 H Performe d by certified GLUBED) cascade operator at [facility] [id number] 08:44:00 Test Item Value Reference Range Interpretation Comments GLUBED (test code = 191 mg/dL 70-105 H Performe d by certified GLUBED) cascade operator at [facility] [id number] 21:21:00 Test Item Value Reference Range Interpretation Comments GLUBED (test code = 156 mg/dL 70-105 H Performe d by certified GLUBED) cascade operator at [facility] [id number] 16:57:00 Test Item Value Reference Range Interpretation Comments GLUBED (test code = 143 mg/dL 70-105 H Performe d by certified GLUBED) cascade operator at [facility] [id number] 11:37:00 Test Item Value Reference Range Interpretation Comments GLUBED (test code = 152 mg/dL 70-105 H Performe d by certified GLUBED) cascade operator at [facility] BASIC METABOLIC [id number] 08:08:00 Test Item Value Reference Range Interpretation [...] 8.5 mg/dL 8.5-10.1 N CA) BASIC METABOLIC [id number] 08:04:00 Test Item Value Reference Range Interpretation [...] CA) 8.5 mg/dL 8.5-10.1 N BASIC METABOLIC [id number] 08:03:00 Test Item Value Reference Range Interpretation [...] code = CA) mg/dL 8.5-10.1 CBC W/AUTO [id number] 07:56:00 Test Item Value Reference Range Interpretation [...] code = 0.00 K/mm3 0.0-0.1 N NRBC#) [id number] 07:15:00 Test Item Value Reference Range Interpretation Comments GLUBED (test code = 125 mg/dL 70-105 H Performe d by certified GLUBED) cascade operator at [facility] [id number] 21:13:00 Test Item Value Reference Range Interpretation Comments GLUBED (test code = 178 mg/dL 70-105 H Performe d by certified GLUBED) cascade operator at [facility] [id number] 17:49:00 Test Item Value Reference Range Interpretation Comments GLYCOSYLATED 11.5 % <5.7 H SUGGESTED DIAG NOSIS HEMOGLOBIN (HA1C) INTERPRETA TION (test code = GLYHGB) ------- Nor mal: <5.7% Prediabe moo: 5.7 - 6.4% Diabetic : >/= 6.5%* DUE TO ME THOD REVISION, REFER ENCE RANGE HAS BEEN UPDATED * ESTIMATED AVERAGE 283 MG/DL <126 GLUCOSE (test code = EAG) [id number] 16:39:00 Test Item Value Reference Range Interpretation Comments GLUBED (test code = 91 mg/dL 70-105 N Performe d by certified GLUBED) cascade operator at [facility] BASIC METABOLIC [id number] 05:21:00 Test Item Value Reference Range Interpretation [...] REPORT ED RESULT BY1. CREATININE (test code 1.18 mg/dl 0.70-1.30 N = CREAT) CALCIUM (test code = 10.2 mg/dL 8.5-10.1 H CA) LIVER [id number] 05:21:00 Test Item Value Reference Range Interpretation [...] 87 U/L 45-117 N code = ALKP) [id number] 05:21:00 Test Item Value Reference Range Interpretation Comments LIPASE (test code = LIP) 74 U/L 73-393 N PROCALCITONIN (PCT)2019-12-01 05:21:00 Test Item Value Reference Range Interpretation Comments PROCALCITONIN (PCT) 0.16 ng/mL <0.5 REFERENC E (test code = PROCAL) RANGES- -->2.0 ng/ml Hi gh risk for progre ssion to severe sepsi s and/or septic shock.0.5 - 2.0 ng/ml Sepsis sh ould be considered.< 0.5 ng/ml Low risk for progression to severe sepsis a nd/or septic shock. CARDIO C REACTIVE PROTEIN [id number] 05:21:00 Test Item Value Reference Range Interpretation Comments CARDIO C REACTIVE 88.80 0.0-3.0 H CCRP MG/L RISK ACCORDING TO PROTEIN HS (test code AHA/CD C GUIDELINES--------- = CCRP) ---------<1.0 L OW CARDIOVASCULAR RISK1.0 - 3.0 AVERAGE CAR DIOVASCULAR RISK3.1 - 10.0 HIGH CARDIOVASCULAR RISK>10.0 PERSISTENT ELEV ATIONS MAY REPRESENT NON-CARDIOVASCU LAR INFLAMMATION CBC W/AUTO [id number] 03:55:00 Test Item Value Reference Range Interpretation [...] (test NO NORMAL code = RBCM) SED [id number] 03:55:00 Test Item Value Reference Range Interpretation Comments SED RATE (test code = SEDW) 26 mm/hr 0-15 H BASIC METABOLIC [id number] 03:39:00 Test Item Value Reference Range Interpretation [...] = 10.2 mg/dL 8.5-10.1 H CA) LIVER [id number] 03:39:00 Test Item Value Reference Range Interpretation [...] 87 U/L 45-117 N code = ALKP) [id number] 03:39:00 Test Item Value Reference Range Interpretation Comments LIPASE (test code = LIP) 74 U/L 73-393 N CARDIO C REACTIVE PROTEIN [id number] 03:39:00 Test Item Value Reference Range Interpretation Comments CARDIO C REACTIVE 88.80 0.0-3.0 H CCRP MG/L RISK ACCORDING TO PROTEIN HS (test code AHA/CD C GUIDELINES--------- = CCRP) ---------<1.0 L OW CARDIOVASCULAR RISK1.0 - 3.0 AVERAGE CAR DIOVASCULAR RISK3.1 - 10.0 HIGH CARDIOVASCULAR RISK>10.0 PERSISTENT ELEV ATIONS MAY REPRESENT NON-CARDIOVASCU LAR INFLAMMATION - XR FOOT 3+ V [id number] 03:11:00 FAX: Ld Rutherford [place]: St: PRE FAX: Galindo Abdullahi MD [phone] Name: RADHA CARPENTER [place] [facility] : 1980 Age/S: 39/M [address] Unit #: [id number] Loc: [place] [address] Phys: Ld Rutherford MD Acct: [id number] Dis Date: Status: PRE ER PHONE #: Exam Date: 12/01/2019 4627 FAX #: Reason: diabetic foot wound, pain EXAMS: CPT CODE: [id number] XR FOOT 3+ [place] RT 77625 EXAM: - XR FOOT 3+ V RT HISTORY: Diabetic wound, pain. FINDINGS: AP, oblique, and lateral view of the right footis provided. There is no acute fracture or malalignment. Chronic healed fracture in distal 5th metatarsal. No focal destructive osseous lesion is noted. Vascular calcifications are present possibly dueto diabetes. IMPRESSION: No acute osseous abnormality. at 0311 Reported and signed by: CAMILLA CARDENAS M.D. CC: Ld Rutherford MD; Galindo Chris MD Technologist: Jamil Cox CT (R) Trnscrd Date/Time/By: 12/01/2019 (310) : By: [email or web address] Orig Print D/T: S: 12/01/2019 (313) PAGE 1 Signed ReportBASIC METABOLIC [id number] 02:59:00 Test Item Value Reference Range Interpretation [...] = 10.2 mg/dL 8.5-10.1 H CA) LIVER [id number] 02:59:00 Test Item Value Reference Range Interpretation [...] 87 U/L 45-117 N code = ALKP) [id number] 02:59:00 Test Item Value Reference Range Interpretation Comments LIPASE (test code = LIP) 74 U/L 73-393 N CARDIO C REACTIVE PROTEIN [id number] 02:59:00 Test Item Value Reference Range Interpretation Comments CARDIO C REACTIVE PROTEIN HS (test code 0.0-3.0 = CCRP) CBC W/AUTO [id number] 02:46:00 Test Item Value Reference Range Interpretation [...] (test NO NORMAL code = RBCM) SED [id number] 02:46:00 Test Item Value Reference Range Interpretation Comments SED RATE (test code = SEDW) mm/hr 0-15 [id number] 11:14:00 Test Item Value Reference Range Interpretation Comments GLUBED (test code = 223 mg/dL 70-105 H Performe d by certified GLUBED) cascade operator at [facility] [id number] 06:41:00 Test Item Value Reference Range Interpretation Comments GLUBED (test code = 281 mg/dL 70-105 H Performe d by certified GLUBED) cascade operator at [facility] COMPREHENSIVE METABOLIC [id number] 04:09:00 Test Item Value Reference Range Interpretation [...] TOTAL (test code = ALKP) CBC W/AUTO [id number] 03:32:00 Test Item Value Reference Range Interpretation [...] code = 0.00 K/mm3 0.0-0.1 N NRBC#) [id number] 20:11:00 Test Item Value Reference Range Interpretation Comments GLUBED (test code = 123 mg/dL 70-105 H Performe d by certified GLUBED) cascade operator at [facility]2020-05-31 15:45:00 Test Item Value Reference Range Interpretation Comments GLUBED (test code = 156 mg/dL 70-105 H Performe d by certified GLUBED) cascade operator at [facility]2020-05-31 11:33:00 Test Item Value Reference Range Interpretation Comments GLUBED (test code = 203 mg/dL 70-105 H Performe d by certified GLUBED) cascade operator at [facility]2020-05-31 07:00:00 Test Item Value Reference Range Interpretation Comments GLUBED (test code = 219 mg/dL 70-105 H Performe d by certified GLUBED) cascade operator at [facility]2020-05-30 22:19:00 Test Item Value Reference Range Interpretation Comments GLUBED (test code = 168 mg/dL 70-105 H Performe d by certified GLUBED) cascade operator at [facility]2020-05-30 17:28:00 Test Item Value Reference Range Interpretation Comments GLUBED (test code = 115 mg/dL 70-105 H Performe d by certified GLUBED) cascade operator at [facility] COMPREHENSIVE METABOLIC [id number] 12:30:00 Test Item Value Reference Range Interpretation [...] TOTAL (test code = ALKP) CBC W/AUTO [id number] 12:22:00 Test Item Value Reference Range Interpretation [...] code = 0.00 K/mm3 0.0-0.1 N NRBC#) [id number] 11:24:00 Test Item Value Reference Range Interpretation Comments GLUBED (test code = 233 mg/dL 70-105 H Performe d by certified GLUBED) cascade operator at [facility]2020-05-30 07:03:00 Test Item Value Reference Range Interpretation Comments GLUBED (test code = 221 mg/dL 70-105 H Performe d by certified GLUBED) cascade operator at [facility]2020-05-29 20:59:00 Test Item Value Reference Range Interpretation Comments GLUBED (test code = 176 mg/dL 70-105 H Performe d by certified GLUBED) cascade operator at [facility]2020-05-29 16:00:00 Test Item Value Reference Range Interpretation Comments GLUBED (test code = 204 mg/dL 70-105 H Performe d by certified GLUBED) cascade operator at [facility] BASIC METABOLIC [id number] 13:27:00 Test Item Value Reference Range Interpretation [...] 9.0 mg/dL 8.5-10.1 N CA) BASIC METABOLIC [id number] 13:26:00 Test Item Value Reference Range Interpretation [...] code = CA) 9.0 mg/dL 8.5-10.1 N [id number] 13:04:00 Test Item Value Reference Range Interpretation Comments GLUBED (test code = 241 mg/dL 70-105 H Performe d by certified GLUBED) cascade operator at [facility] [id number] 06:22:00 Test Item Value Reference Range Interpretation Comments GLUBED (test code = 218 mg/dL 70-105 H Performe d by certified GLUBED) cascade operator at [facility] [id number] 20:52:00 Test Item Value Reference Range Interpretation Comments GLUBED (test code = 189 mg/dL 70-105 H Performe d by certified GLUBED) cascade operator at [facility] [id number] 16:02:00 Test Item Value Reference Range Interpretation Comments GLUBED (test code = 253 mg/dL 70-105 H Performe d by certified GLUBED) cascade operator at [facility] [id number] 13:35:00 Test Item Value Reference Range Interpretation Comments GLYCOSYLATED 13.3 % <5.7 H SUGGESTED DIAG NOSIS HEMOGLOBIN (HA1C) INTERPRETA TION (test code = GLYHGB) ------- Nor mal: <5.7% Prediabet es: 5.7 - 6.4% Diabetic : >/= 6.5%* DUE TO ME THOD REVISION, REFER ENCE RANGE HAS BEEN UPDATED * ESTIMATED AVERAGE 335 MG/DL <126 GLUCOSE (test code = EAG) [id number] 13:13:00 Test Item Value Reference Range Interpretation Comments GLUBED (test code = 245 mg/dL 70-105 H Performe d by certified GLUBED) cascade operator at [facility] [id number] 08:01:00 Test Item Value Reference Range Interpretation Comments GLUBED (test code = 352 mg/dL 70-105 H Performe d by certified GLUBED) cascade operator at [facility] UA RFLX MICROSCOPIC [id number] 07:45:00 Test Item Value Reference Range Interpretation Comments UA COLOR (test code = LT YELLOW YELLOW COLU) UA APPEARANCE (test CLEAR CLEAR code = APPU) UA GLUCOSE DIPSTICK >1000 mg/dl NORMAL URGENT V ALUE---- (test code = DGLUU) RESULT C CHRISTINO AND READ BACK Martin ARCOS [id number] 10/13/19 . Ebony Tan UA BILIRUBIN DIPSTICK NEGATIVE mg/dl NEGATIVE (test [...] Indication for culture: Dysuria/FrequencyURINE SOURCE: CLEAN CATCH URINEBASIC METABOLIC [id number] 06:25:00 Test Item Value Reference Range Interpretation [...] = 10.1 mg/dL 8.5-10.1 N CA) LIVER [id number] 06:25:00 Test Item Value Reference Range Interpretation [...] 69 U/L 50-136 N code = ALKP) [id number] 06:25:00 Test Item Value Reference Range Interpretation Comments LIPASE (test code = LIP) 68 U/L 73-393 L [id number] 06:25:00 Test Item Value Reference Range Interpretation Comments TROPONIN-I (test <0.015 ng/ml 0.00-0.045 N GUIDELINES: 0.08 - 0.09 code = TROPI) Indeterminate0 .10 Risk Stratification Limit: Suggest sequent ial testing0.60 - 1 .50 AMI cutoff: Myocard ial Injury by WHO criteria CBC W/AUTO [id number] 06:04:00 Test Item Value Reference Range Interpretation [...] 0.00 K/mm3 0.0-0.1 N NRBC#) UR PORPHYRINS [id number] 10:50:00 Test Item Value Reference Range Interpretation Comments UR PORPHYRINS QUANT (test SENT TO REF LAB code = PORUQT) VE=5567 MLS/[id number] 08:47:00 Test Item Value Reference Range Interpretation Comments GLUBED (test code = 220 mg/dL 70-105 H Performe d by certified GLUBED) cascade operator at [facility] BASIC METABOLIC [id number] 07:05:00 Test Item Value Reference Range Interpretation [...] code = 8.0 mg/dL 8.5-10.1 L CA) [id number] 07:05:00 Test Item Value Reference Range Interpretation Comments PHOSPHOROUS (test code = PHOS) 1.8 mg/dL 2.5-4.9 L CBC W/AUTO [id number] 06:11:00 Test Item Value Reference Range Interpretation [...] code = 0.00 K/mm3 0.0-0.1 N NRBC#) [id number] 20:43:00 Test Item Value Reference Range Interpretation Comments GLUBED (test code = 117 mg/dL 70-105 H Performe d by certified GLUBED) cascade operator at [facility]2020-01-30 16:49:00 Test Item Value Reference Range Interpretation Comments GLUBED (test code = 163 mg/dL 70-105 H Performe d by certified GLUBED) cascade operator at [facility]2020-01-30 11:36:00 Test Item Value Reference Range Interpretation Comments GLUBED (test code = 171 mg/dL 70-105 H Performe d by certified GLUBED) cascade operator at [facility]2020-01-30 07:20:00 Test Item Value Reference Range Interpretation Comments GLUBED (test code = 198 mg/dL 70-105 H Performe d by certified GLUBED) cascade operator at [facility] BASIC METABOLIC [id number] 07:20:00 Test Item Value Reference Range Interpretation [...] code = 8.6 mg/dL 8.5-10.1 N CA) [id number] 07:20:00 Test Item Value Reference Range Interpretation Comments PHOSPHOROUS (test code = PHOS) 2.2 mg/dL 2.5-4.9 L CBC W/AUTO [id number] 06:35:00 Test Item Value Reference Range Interpretation [...] code = 0.00 K/mm3 0.0-0.1 N NRBC#) [id number] 21:16:00 Test Item Value Reference Range Interpretation Comments GLUBED (test code = 123 mg/dL 70-105 H Performe d by certified GLUBED) cascade operator at [facility] [id number] 18:31:00 Test Item Value Reference Range Interpretation Comments GLUBED (test code = 171 mg/dL 70-105 H Performe d by certified GLUBED) cascade operator at [facility] - CT ABD PELVIS [id number] 16:22:00 Name: JAYEDNRADHA Arron [facility] : 1980 Age/S: 38 [facility] [address] [facility] [facility] [id number] Loc: [place], [place] [address] Phys: Josh Norwood Acct: [id number] Dis Date: Status: ADM IN PHONE #: [phone] Exam Date: 06/15/2019 1558 FAX #: [phone] Reason: ABD PAIN EXAMS: CPT CODE: [id number] CT ABD PELVIS W/CONT 43698 EXAMINATION: - CT ABD PELVIS W/CONT.LOCATION: H 42. HISTORY: Abdominal pain, gastroparesis, cholecystectomy, diabetes. COMPARISON: CT abdomen/pelvis 06/01/2019. TECHNIQUE: CT imaging was performed of abdomen and pelvis after intravenous administration of 100 cc of Isovue-300. Oral contrast material was also administered. One or more the following dose reduction techniques were used: Automated exposure control, adjustment of mA and/or kV according to patient size, and use of iterative reconstruction technique. FINDINGS: Visualized lung bases demonstrate dependent changes, left greater than right with tiny left effusion. Cholecystectomy. Liver, spleen, [...] tiny left pleural effusion. Fairly extensive atherosclerotic bobo cifications. PAGE 1 Signed Report (CONTINUED) Name: JAYDENRADHA Arron [facility] : 1980 Age/S: 38 / M [address] [facility] [facility] [address] Unit #: [id number] Loc: [place] [address] Phys: Josh Norwood Acct: [id number] Dis Date: Status: ADM IN PHONE #: [phone] Exam Date: 06/15/2019 1552 FAX #: [phone] Reason: ABD PAIN EXAMS: CPT CODE: [id number] CT ABD PELVIS W/CONT 96263 <Continued> [id number] Reported and signed by: VERITO MG M.D. CC: Galindo Chris MD Technologist:Anmol Hardy, RT (R) CT (R) CTDI: 10.14 DLP: 586.96 Trnscb Date/Time: 06/15/2019 (5468) t.[email or web address].[email or web address] Orig Print D/T: S: 06/15/2019 (3774) PAGE 2 Signed ReportUR CREATININE RANDOM 2019-06-15 14:23:00 Test Item Value Reference Range Interpretation Comments UR CREATININE RANDOM (test code = 37.0 mg/dL CREATU) [id number] 11:48:00 Test Item Value Reference Range Interpretation Comments GLUBED (test code = 171 mg/dL 70-105 H Performe d by certified GLUBED) cascade operator at [facility] [id number] 06:29:00 Test Item Value Reference Range Interpretation Comments GLUBED (test code = 191 mg/dL 70-105 H Performe d by certified GLUBED) cascade operator at [facility] - XR ABDOMEN 1V (KUB)2019-06-14 22:36:00 [facility] Name: RADHA CARPENTER [address] [place] [address] Phys: Josh Norwood [place] [address] : 1980 Age: 38 Sex: M Acct: [id number] Loc: H.[facility] A PHONE #: [phone] Exam Date: 06/14/2019 Status: ADM IN FAX #: [phone] Radiology No: Unit No: [id number] Reason: ABD PAIN EXAMS: CPT CODE: [id number] XR ABDOMEN 1V (KUB) 65452 Fluoro Time: DAP (Gy m2): Air Kerma (mGy): AP VIEWS OF THE ABDOMEN AND PELVIS LOCATION: R16 CLINICAL HISTORY: Abdominal pain. COM PARISON: Abdominal radiographs 04/28/2018. FINDINGS: A normal bowel gas pattern is seen throughout the abdomen. No bowel dilatation or free air is found. Left- sided spinal stimulator catheter is noted,unchanged. Cholecystectomy clips are redemonstrated. No acute bony abnormality is seen. The pelvis is intact. IMPRESSION: No acute findings in the abdomen or pelvis. at 2236 Reported and signed by: MEAGAN GONZALES MD CC: Galindo Chris MD Technologist:Jh Johnson, RT (R); Denisha Gallegos, RT (R) Transcribed Date/Time: 06/14/2019 (7380) t.SDR.JSLOrig Print D/T: S: 06/14/2019 (4741) PAGE 1 Signed [id number] 20:44:00 Test Item Value Reference Range Interpretation Comments GLUBED (test code = 188 mg/dL 70-105 H Performe d by certified GLUBED) cascade operator at [facility]2020-01-28 16:32:00 Test Item Value Reference Range Interpretation Comments GLUBED (test code = 180 mg/dL 70-105 H Performe d by certified GLUBED) cascade operator at [facility]2020-01-28 11:37:00 Test Item Value Reference Range Interpretation Comments GLUBED (test code = 223 mg/dL 70-105 H Performe d by certified GLUBED) [facility] 21:58:00 Test Item Value Reference Range Interpretation Comments GLUBED (test code = 135 mg/dL 70-105 H Performe d by certified GLUBED) cascade operator at [facility]2020-01-27 19:17:00 Test Item Value Reference Range Interpretation Comments GLUBED (test code = 162 mg/dL 70-105 H Performe d by certified GLUBED) cascade operator at [facility]2020-01-27 19:17:00 Test Item Value Reference Range Interpretation Comments GLUBED (test code = 213 mg/dL 70-105 H Performe d by certified GLUBED) cascade operator at [facility] - XR CHEST 1 [id number] 18:19:00 [facility] Name: RADHA CARPENTER [address] [place] [address] Phys: Jin Fatima MD [place], [place] [address] : 1980 Age: 38 Sex: M Acct: [id number] Loc: [place] PHONE #: [phone] Exam Date: 06/13/2019 Status: REG ER FAX #: [phone] Radiology No: Unit No: [id number] Reason: pain EXAMS: CPT CODE: [id number] XR CHEST 1 V 37674 Fluoro Time: DAP (Gy m2): Air Kerma (mGy): - XR CHEST 1 V, 06/13/2019 5:18 PM Reason For Examination: pain Comparison: June 01, 2019 Location:R16 Findings LUNGS: No definite pulmonary edema or consolidation, although exam findings limited bylow lung volumes PLEURA: No pleural effusions CARDIOMEDIASTINAL SILHOUETTE Unremarkable IMPRESSION: No plain film evidence of acute cardiopulmonary abnormality within the given limitations above Ilsa ctronically Signed by BURT OLIVIER M.D. on 06/13/2019 at 181 Reported and signed by:BURT OLIVIER M.D. CC: Galindo Chris MD Technologist: Denisha Gallegos, RT (R) TranscribedDate/Time: 06/13/2019 (1818) [id number] Orig Print D/T: S: 06/13/2019 (1821) PAGE 1 Signed Report COMPREHENSIVE METABOLIC [id number] 18:01:00 Test Item Value Reference Range Interpretation [...] ED RESULT BY06.07. CREATININE (test code = 1.00 mg/dL 0.67-1.17 [...] 50-136 N TOTAL (test code = ALKP) [id number] 18:01:00 Test Item Value Reference Range Interpretation Comments LIPASE (test code = LIP) 69 U/L 73-393 L CBC W/AUTO [id number] 17:46:00 Test Item Value Reference Range Interpretation [...] code = 0.00 K/mm3 0.0-0.1 N NRBC#) [id number] 16:38:00 Test Item Value Reference Range Interpretation Comments GLUBED (test code = 195 mg/dL 70-105 H Performe d by certified GLUBED) cascade operator at [facility] [id number] 11:47:00 Test Item Value Reference Range Interpretation Comments GLUBED (test code = 254 mg/dL 70-105 H Performe d by certified GLUBED) cascade operator at [facility] UA RFLX MICROSCOPIC [id number] 10:08:00 Test Item Value Reference Range Interpretation [...] code = GLUBED) 150 mg/dL 70-105 H [id number] 22:49:00 Test Item Value Reference Range Interpretation Comments GLUBED (test code = 214 mg/dL 70-105 H Performe d by certified GLUBED) cascade operator at [facility] UA RFLX MICROSCOPIC [id number] 18:28:00 Test Item Value Reference Range Interpretation [...] Dysuria/FrequencyURINE SOURCE: STRAIGHT CATHCOMMENT: PER DR. KELSEY [id number] 16:35:00 Test Item Value Reference Range Interpretation Comments GLUBED (test code = 143 mg/dL 70-105 H Performe d by certified GLUBED) cascade operator at [facility] [id number] 14:55:00 Test Item Value Reference Range Interpretation Comments GLUBED (test code = 204 mg/dL 70-105 H Performe d by certified GLUBED) cascade operator at [facility] [id number] 10:20:00 Test Item Value Reference Range Interpretation Comments GLUBED (test code = 159 mg/dL 70-105 H Performe d by certified GLUBED) cascade operator at [facility] [id number] 06:47:00 Test Item Value Reference Range Interpretation Comments GLYCOSYLATED HEMOGLOBIN (HA1C) 12.2 % 4.2-6.3 H (test code = GLYHGB) ESTIMATED AVERAGE GLUCOSE (test 303 MG/DL <126 code = EAG) COMPREHENSIVE METABOLIC [id number] 06:35:00 Test Item Value Reference Range Interpretation [...] ED RESULT BY06.07. CREATININE (test code = 1.00 mg/dL 0.67-1.17 [...] LDLC) LDL/HDL (test code = 1.8 Ratio LDL/HD L RATIO RISK LDL/HDL) ---- 3.22 Average 5. 03 Twice average [address] [id number] 06:35:00 Test Item Value Reference Range Interpretation Comments LIPASE (test code = LIP) 51 U/L 73-393 L CBC W/AUTO [id number] 06:10:00 Test Item Value Reference Range Interpretation [...] code = 0.00 K/mm3 0.0-0.1 N NRBC#) [id number] 00:01:00 Test Item Value Reference Range Interpretation Comments GLUBED (test code = 191 mg/dL 70-105 H Performe d by certified GLUBED) cascade operator at [facility] - CT ABD PELVIS W/O [id number] 17:17:00 Name: RADHA CARPENTER Arron [facility] : 1980 Age/S: 38 / [id number] Loc: [place] [address] Phys: Edson Potts Jr, MD Acct: [id number] Dis Date: Status: ADM IN PHONE #: [phone] Exam Date: 06/01/2019 1646 FAX #: [phone] Reason: ABD APIN EXAMS: CPT CODE: [id number] CT ABD PELVIS W/O CONT 67746 - CT ABD PELVIS W/O CONT CLINICAL HISTORY:Abdominal pain. COMPARISON: May 20, 2019 TECHNIQUE: Sequential axial images of abdomen and pelviswithout contrast with sagittal and coronal reconstructions. This CT exam was performed using one or more of the following dose reduction techniques: Automated exposure control; Adjustment of the mA and/or kV according to patient size; Use of iterative reconstruction technique. FINDINGS: There is limited evaluation of the solid and hollow visceral organs without the use of IV contrast. Dependent atelectasis is seen bilaterally. There is more groundglass nodular opacities at the left lung base and early infiltrate is not excluded. Heart size is normal with trace pericardial effusion. Patient is status post cholecystectomy. The liver, spleen, pancreas and adrenal glands are unremarkable. Both kidneysappear symmetric in size without hydronephrosis or obstructive nephrolithiasis. Bowel loops are unopacified and decompressed. Small bowel loops are normal in caliber. The stomach appears decompressed which accentuates wall thickness. There appears to be stimulator leads extending to the distal anterior gastric wall. There appear to be several thickened air- filled small bowel loops in the left upper [...] is normal in caliber with mild atherosclerosis. Degenerative disc disease of the lower lumbar spine is noted. There are vacuum discs at the L4-5 and L5-S1 levels, with mild posterior disc protrusion at the L3-4, L4-5 and to a lesser extent L5-S1 levels.. No acute bony abnormality seen. IMPRESSION: PAGE 1 Signed Report (CONTINUED) Name: RADHA CARPENTER [facility] : 1980 Age/S: 38 / M [address] [facility] [facility] Unit#: [id number] Loc: [place] [address] Phys: Edson Potts Jr, MD Acct: [id number] Dis Date: Status: ADM IN PHONE #: [phone] Exam Date: 06/01/2019 1646 FAX #: [phone] Reason: ABD APIN EXAMS: CPT CODE: [id number] CT ABD PELVIS W/O CONT 53364 <Continued> No evidence of intestinal or u rinary obstruction. Gastric mucosa appears thickened which may be in part related to incomplete distention. There are stimulator leads which extend to the anterior aspect of the stomach suggesting gastroparesis. Mildly thickened air- filled small bowel loops in the left upper quadrant. This appearancemight be in part related to peristalsis. However, focal enteritis is not excluded. Correlate with symptomatology. Urinary bladder is partially distended. The bladder wall, however, appears thickened. Superimposed inflammatory process such as cystitis is not excluded. Correlate with urinalysis. Descending and sigmoid colon are decompressed which accentuates wall thickness. No definite inflammatory process associated with the colon. Other nonemergent findings described above. at 1717 Reported and signed by: Lili Santos MD CC: Galindo Chris MD Technologist:Anmol Hardy, RT (R) CT (R) CTDI: 10.33 DLP: 624.19 Trnscb Date/Time: 06/01/2019 (1717) [place].KAA2 Orig Print D/T: S: 06/01/2019 (9558) PAGE 2 Signed Report- XR CHEST 1 [id number] 14:37:00 [facility] Name: RADHA CARPENTER [address] [place] [address] Phys: Edson Potts Jr, MD [place], [place] [address] : 1980 Age: 38 Sex: M Acct: [id number] Loc: MARY PHONE #: [phone] Exam Date: 06/01/2019 Status: REG ER FAX #: [phone] Radiology No: Unit No: [id number] Reason: chest pain EXAMS: CPT CODE: [id number] XR CHEST 1 V 53158 Fluoro Time: DAP (Gy m2): Air Kerma [...] Technologist: Anton Martinez, RT(R) Transcribed Date/Time: 06/01/2019 (0263) t.SDR.DRB1 Orig Print D/T: S: 06/01/2019 (5902) PAGE 1 Signed ReportPROTHROMBIN [id number] 14:25:00 Test Item Value Reference Interpretation Comments Range PROTHROMBIN TIME 9.8 SECONDS 8.7-12.1 N THERAPEUTIC LEVEL: 1.5 TO PATIENT (test code 1.9 TIMES NORMAL RANGE = PTP) INTERNATIONAL 0.9 Recommended Th erapeutic NORMAL RATIO (test PT Ratios For Oral code = INR) AnticoagulantTh erapy. CONDITION INT'L NORMALIZED PT RATIO Prophylaxis of venous thrombosis 2.0 - 3.0in high risk medic al or surgicalpatient s, treatment of venousthrombosi s, prevention of e mbolism. Prevention of r ecurrent embolism, 2.5 - 3.5or treatment of pa tients with mechanical prosthetic heart valves. THROMBOPLASTIN TIME [id number] 14:25:00 Test Item Value Reference Range Interpretation Comments THROMBOPLASTIN TIME PARTIAL 24.0 seconds 22.8-34.4 N (test code = PTT) BASIC METABOLIC [id number] 14:21:00 Test Item Value Reference Range Interpretation [...] code = 10.2 mg/dL 8.5-10.1 H CA) [id number] 14:21:00 Test Item Value Reference Range Interpretation Comments LIPASE (test code = LIP) 68 U/L 73-393 L [id number] 14:21:00 Test Item Value Reference Range Interpretation Comments TROPONIN-I (test <0.015 ng/ml 0.00-0.045 N GUIDELINES: 0.08 - 0.09 code = TROPI) Indeterminate0 .10 Risk Stratification Limit: Suggest sequent ial testing0.60 - 1 .50 AMI cutoff: Myocard ial Injury by WHO criteria CBC W/AUTO [id number] 14:11:00 Test Item Value Reference Range Interpretation [...] code = 0.00 K/mm3 0.0-0.1 N NRBC#) [id number] 09:36:00 Test Item Value Reference Range Interpretation Comments GLUBED (test code = 314 mg/dL 70-105 H Performe d by certified GLUBED) cascade operator at [facility] [id number] 09:36:00 Test Item Value Reference Range Interpretation Comments GLUBED (test code = 288 mg/dL 70-105 H Performe d by certified GLUBED) cascade operator at [facility] BASIC METABOLIC [id number] 06:10:00 Test Item Value Reference Range Interpretation [...] = 9.4 mg/dL 8.5-10.1 N CA) LIVER [id number] 06:10:00 Test Item Value Reference Range Interpretation [...] 68 U/L 50-136 N code = ALKP) [id number] 06:10:00 Test Item Value Reference Range Interpretation Comments TRIGLYCERIDES (test code = TRIG) 225 mg/dL 30-150 H [id number] 06:10:00 Test Item Value Reference Range Interpretation Comments LIPASE (test code = LIP) 56 U/L 73-393 L BETA [id number] 06:10:00 Test Item Value Reference Range Interpretation Comments BETA HYDROBUTYRATE (test code = 2.70 mmol/L 0.00-0.28 H BETHYD) BASIC METABOLIC [id number] 06:03:00 Test Item Value Reference Range Interpretation [...] = CA) 9.4 mg/dL 8.5-10.1 N LIVER [id number] 06:03:00 Test Item Value Reference Range Interpretation [...] TOTAL (test U/L 50-136 code = ALKP) [id number] 06:03:00 Test Item Value Reference Range Interpretation Comments TRIGLYCERIDES (test code = TRIG) mg/dL 30-150 [id number] 06:03:00 Test Item Value Reference Range Interpretation Comments LIPASE (test code = LIP) U/L 73-393 BETA [id number] 06:03:00 Test Item Value Reference Range Interpretation Comments BETA HYDROBUTYRATE (test code = mmol/L 0.00-0.28 BETHYD) CBC W/AUTO [id number] 05:59:00 Test Item Value Reference Range Interpretation [...] 0.00 K/mm3 0.0-0.1 N NRBC#) CBC W/AUTO [id number] 06:20:00 Test Item Value Reference Range Interpretation [...] ESTIMATE (test code = INCREASED ADEQUATE PLTEST) [id number] 04:38:00 Test Item Value Reference Range Interpretation Comments GLUBED (test code = 379 mg/dL 70-105 H Performe d by certified GLUBED) cascade operator at [facility] - CT ABD PELVIS W/O [id number] 00:16:00 Name: RADHA CARPENTER [facility] : 1980 Age/S: 38 / M [address] [place] [address] RoadUnit #: [id number] Loc: [place], [place] [address] Phys: Francisco J,Emir DO Acct: [id number] Dis Date: Status: REG ER PHONE #: [phone] Exam Date: 05/20/2019 2356 FAX #: [phone] Reason: PAIN EXAMS:CPT CODE: [id number] CT ABD PELVIS W/O CONT 71124 LOCATION: [facility] EXAM: - CT ABD PELVIS W/O CONT HISTORY: PAIN TECHNIQUE: Axial imaging of the abdomen and pelvis from the lung base to the pubic symphysis without administration of intravenous contrast. Sagittal and coronal reconstructions. CT scan performed using appropriate/available dose optimization/reduction techniques. DLP 623.7 mGy/cm COMPARISON: None. FINDINGS: Lung base:The visualized lung base is clear. The heart size is normal. No pericardial or pleural effusion is present. Assessment of abdominal viscera limited in the absence of intravenouscontrast. Liver/spleen: Unremarkable. Biliary system: The gallbladder is surgically absent. No biliary duct dilatation. Pancreas: Unremarkable. Adrenal glands: Normal. Kidneys: Unremarkable. Vascular: Mild atherosclerosis normal caliber abdominal aorta. Lymph nodes: No abdominal lymphadenopathy. Pelvic structures: The urinary bladder is unremarkably distended. No pelvic lymphadenopathy or free fluid. Prostate gland is normal in size. Gastrointestinal tract: Scattered colonic diverticula. No evidenceof acute diverticulitis. No abnormal bowel dilatation. Normal caliber appendix is identified. No focal fluid collections, ascites or PAGE 1 Signed Report (CONTINUED) Name: RADHA CARPENTER [facility] : 1980 Age/S: 38 / M [address] [place] [address] Road Unit #: [id number] Loc: [place], [place] [address] Phys: Francisco J,Emir DO Acct: [id number] Dis Date: Status: REG ER PHONE #: [phone] Exam Date: 05/20/2019 2356 FAX #: [phone] Reason: PAIN EXAMS: CPT CODE: [id number] CT ABD PELVIS W/O CONT 50864 <Continued> evidence of pneumoperitoneum. Bones and soft tissues: The osseous structures are intact. Appliance overlies the left abdominal wall with lead tips anterior to the distal gastric body. IMPRESSION: Essentially unremarkable noncontrast CT examination of the abdomen and pelvis without evidence of acute intra-abdominal pathology. at 0016 Reported and signed by: ISSA MG MD. CC: Emir Marx DO; Galindo Chris MD Technologist:Raman Aburto RT CTDI: 10.59 DLP: 623.67 Trnscb Date/Time: 05/21/2019 (0016) t.SDR.NS15 Orig Print D/T: S: 05/21/2019 (0019) PAGE 2 Signed ReportUA RFLX MICROSCOPIC [id number] 00:07:00 Test Item Value Reference Range Interpretation [...] Indication for culture: Dysuria/FrequencyURINE SOURCE: CLEAN CATCH URINEBASIC METABOLIC [id number] 23:38:00 Test Item Value Reference Range Interpretation [...] 10.0 mg/dL 8.5-10.1 N CA) RECOLLECTION HEMOLYZEDLIVER [id number] 23:38:00 Test Item Value Reference Range Interpretation [...] U/L 50-136 N code = ALKP) RECOLLECTION [id number] 23:38:00 Test Item Value Reference Range Interpretation Comments LIPASE (test code = LIP) 42 U/L 73-393 L RECOLLECTION HEMOLYZEDCBC W/AUTO [id number] 23:03:00 Test Item Value Reference Range Interpretation [...]
[2021-12-23] MEDS ORDERED: NA CHLORIDE 0.9% 250 ML ONE ×2 (02:45→08:47)
[2021-12-23] MEDS ORDERED: ONDANSETRON 4 MG/2 ML VIAL ONE ×4 (02:45→16:55)
[2021-12-23] MEDS ORDERED: MORPHINE 4 MG/ML SYR ONE (02:45)
[2021-12-23] MEDS ORDERED: NA CHLORIDE 0.9% 1,000 ML ONE ×2 (02:45→08:46)
[2021-12-23] MEDS ORDERED: VANCOMYCIN 1 GM/VIAL ONE ×2 (02:45→08:51)
[2021-12-23] MEDS ORDERED: NA CHLORIDE 0.9% 100 ML ONE (02:45)
[2021-12-23] MEDS ORDERED: PIPERACIL/TAZO 3.375 GM VIAL IV ONE ×2 (02:46→08:46)
[2021-12-23 02:48] LABS: Albumin 3.8 g/dL (3.4-5.0); Bilirubin Total 0.4 mg/dL (0.2-1.0); Potassium 3.8 mmol/L (3.5-5.1); Protein, Total 8.7 g/dL (6.4-8.2)
--- NOTE | 2021-12-23 04:44 | P.HP ---
Certification for Inpatient Patient admitted to: Inpatient With expected LOS: <2 Midnights Patient will require the following post-hospital care: None Practitioner: I am a practitioner with admitting privileges, knowledge of patient current condition, hospital course, and medical plan of care. Services: Services provided to patient in accordance with Admission requirements found in Title 42 Section 412.3 of the Code of Federal Regulations Patient History Date of Service: 12/23/21 Reason for admission: Cellulitus R Foot History of Present Illness: Patient is a 41-year-old male with type 1 diabetes, hypertension, and hyperlipidemia who presented to the ED with complaints of right foot pain. Patient has been dealing with ulcer on his right foot, plantar aspect, for about 9 years now. It has resulted in osteomyelitis and amputation of 3 toes in the past, managed by Dr. Sorenson. He flagged sepsis when he initially came into ED with tachycardia and tachypnea. He states there was no specific injury/incident that caused an increase in pain in his wound, rather it has gradually been getting worse. Lactic acid 3.3, WBC 7.9. Foot xray showed "mild soft tissue swelling along the plantar aspect of the mid to distal foot. No definite subcutaneous emphysema is appreciated. Degenerative changes of the first metatarsalphalangeal joint. There appears to be some tissue ulceration adjacent to the first MTP joint." He was started on vanc and zosyn in ED and given 1L fluid. Patient is admitted for further evaluation and treatment. Allergies acetaminophen [From [place]] Allergy (Verified 09/16/21 11:30) Hives hydrocodone [From [place]] Allergy (Verified 09/16/21 11:30) Hives tramadol Allergy (Verified 09/16/21 11:30) Hives metoclopramide [From Reglan] Adverse Reaction (Intermediate, Verified 02/11/21 14:08) involuntary spasms clonidine Adverse Reaction (Verified 02/11/21 14:08) severe anxiety prochlorperazine [From Compazine] Adverse Reaction (Verified 02/11/21 14:08) severe anxiety Home medications list reviewed: Yes Home Medications: Insulin Aspart [Novolog Penfill] 30 unit SQ AC 01/24/21 Insulin Glargine,Hum.rec.anlog [Lantus] 15 units SQ BID 01/24/21 Nortriptyline HCl [Pamelor] 50 mg PO BEDTIME 01/24/21 Zolpidem Tartrate 10 mg PO BEDTIME 01/24/21 Famotidine 20 mg PO BEDTIME 09/15/21 Simvastatin 5 mg PO DAILY 09/15/21 Amox/Clavulanate [Augmentin 875-125 Tab] 875 mg PO BID 7 Days #14 tab 12/11/21 Codeine/APAP [Tylenol #3*] 1 tab PO TID #20 tab 12/11/21 - Past Medical/Surgical History Diabetic: Yes -: T1DM -: gastroparesis -: neuropathy -: HLD -: HTN -: Osteomyelitis -: R foot diabetic ulcer debridement -: cholecystectomy -: gastroneuro stimulator implant -: multiple vascular procedures on R leg ,amputation of three toes Psychosocial/ Personal History: Patient is . 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 - Family History Father -: Diabetes Mother -: Hypertension, Diabetes, Cancer Notes: [place] Brother -: Diabetes Sister -: Diabetes - Social History Smoking Status: Never smoker Alcohol use: No CD- Drugs: No Caffeine use: Yes Place of Residence: Home Review of Systems Musculoskeletal: Foot Pain Physical Examination - Physical Exam Integumentary: Erythema, Warmth, Diabetic ulcer (2cm circular ulcer to plantar aspect of R midfoot with surrounding erythema) - Studies Laboratory Data (last 24 hrs) 12/23/21 02:18: PT 10.5, INR 0.96, APTT 39.3 H 12/23/21 02:18: Sodium 139, Potassium 3.8, BUN 18, Creatinine 1.03, Glucose 195 H, Total Bilirubin 0.4, AST 25, ALT 57, Alkaline Phosphatase 109 12/23/21 02:18: WBC 7.9 D, Hgb 13.9 D, Hct 40.8 D, Plt Count 412 H D Microbiology Data (last 24 hrs): 12/23/21 02:07 Nasopharnyx Influenza Type A Antigen Screen - Final 12/23/21 02:07 Nasopharnyx Influenza Type B Antigen Screen - Final Assessment and Plan - Problems (Diagnosis) (1) Sepsis Current Visit: Yes Status: Acute Qualifiers: Sepsis type: sepsis due to unspecified organism Sepsis acute organ dysfunction status: without acute organ dysfunction Qualified Code(s): A41.9 - Sepsis, unspecified organism (2) Cellulitis of right foot Current Visit: Yes Status: Acute (3) Diabetic foot ulcer Current Visit: Yes Status: Chronic Qualifiers: Diabetic foot ulcer location: midfoot Diabetes mellitus type: type 1 Laterality: right Non-pressure ulcer stage: with fat layer exposed Qualified Code(s): E10.621 - Type 1 diabetes mellitus with foot ulcer; L97.412 - Non- pressure chronic ulcer of right heel and midfoot with fat layer exposed (4) Gastroparesis Current Visit: Yes Status: Chronic (5) HLD (hyperlipidemia) Current Visit: Yes Status: Chronic Qualifiers: Hyperlipidemia type: unspecified Qualified Code(s): E78.5 - Hyperlipidemia, unspecified (6) HTN (hypertension) Current Visit: Yes Status: Chronic Qualifiers: Hypertension type: primary hypertension Qualified Code(s): I10 - Essential (primary) hypertension (7) Type 1 diabetes Current Visit: Yes Status: Chronic Qualifiers: Diabetes mellitus complication status: with hyperglycemia Qualified Code(s): E10.65 - Type 1 diabetes mellitus with hyperglycemia - Plan -Patient is flagging sepsis at this time. Continue IV antibiotics and IV fluids. Blood and wound cultures obtained. Pend repeat lactic acid. -Xray did not indicate concern for osteomyelitis at this time -Delta consulted. NPO until further recommendation. -Continue IV vanc and zosyn -Wound care consulted -IV fluids and pain control -Aggressive blood sugar control -Monitor and replete electrolytes per protocol -Reconcile and continue home medications -Lovenox for VTE ppx -Full code Discharge Plan: Home Plan to discharge in: 48 Hours - Advance Directives Does patient have a Living Will: No Does patient have a Durable POA for Healthcare: No - Code Status/Comfort Care Code Status Assessed: Yes (Full) Critical Care: No Time Spent Managing Pts Care (In Minutes): 50
--- NOTE | 2021-12-23 05:00 | EDPHYS ---
Physician Documentation [facility] Name: Christian Lee Age: 41 yrs Sex: Male : 1980 Arrival Date: 12/23/2021 Time: 01:54 Bed 17 Private MD: ED Physician Pernell Radford HPI: 12/23 02:10 This 41 yrs old Male presents to ER via Wheelchair with complaints of Foot mh7 Pain, Vomiting. 02:10 The patient presents with pain, that is acute. The complaints affect the right foot. mh7 02:10 Context: The problem was sustained at home, resulted from an unknown cause, Mechanism mh7 of Injury: none the patient can fully bear weight, the patient is able to ambulate. Onset: The symptoms/episode began/occurred yesterday, at 14:00. Modifying factors: The symptoms are alleviated by nothing, the symptoms are aggravated by weight bearing. Associated signs and symptoms: Pertinent positives: nausea, vomiting, chills, Pertinent negatives: calf tenderness, fever, numbness, rash, swelling, warmth, weakness. Severity of symptoms: At their worst the symptoms were moderate, yesterday, in the emergency department the symptoms have improved, mildly. Historical: - Allergies: 02:03 Clonidine; tw5 02:03 Compazine; tw 02:03 [place]; GI problems; tw 02:03 Reglan; tw 02:03 tramadol; GI problems; tw5 - Home Meds: 02:03 Lantus Sub-Q [Active]; lisinopril-hydrochlorothiazide Oral [Active]; Motilium [Active]; tw Simvastatin Oral [Active]; Novolog Sub-Q [Active]; nortriptyline Oral [Active]; - PMHx: 02:03 diabetes mellitus; Gastroparesis; Hypertensive disorder; insomnia; neuropathy; tw5 - PSHx: 02:03 2nd toe amputation R foot; 3rd and 4th toe amputation to Right foot; tw5 - Immunization history:: Flu vaccine is not up to date. - Social history:: Smoking status: Patient denies any tobacco usage or history of. ROS: 02:10 Eyes: Negative for injury, pain, redness, and discharge, ENT: Negative for injury, mh7 pain, and discharge, Neck: Negative for injury, pain, and swelling, Cardiovascular: Negative for chest pain, palpitations, and edema, Respiratory: Negative for shortness of breath, cough, wheezing, and pleuritic chest pain. 02:10 Back: Negative for injury and pain, : Negative for injury, bleeding, discharge, and swelling, Skin: Negative for injury, rash, and discoloration, Neuro: Negative for headache, weakness, numbness, tingling, and seizure, Psych: Negative for depression, anxiety, suicide ideation, homicidal ideation, and hallucinations, Allergy/Immunology: Negative for hives, rash, and allergies, Endocrine: Negative for neck swelling, polydipsia, polyuria, polyphagia, and marked weight changes, Hematologic/Lymphatic: Negative for swollen nodes, abnormal bleeding, and unusual bruising. 02:10 Abdomen/GI: Negative for abdominal pain, diarrhea, constipation, abdominal cramps, abdominal distension, anorexia, dysphagia, hematemesis, black/tarry stool, rectal pain, rectal bleeding, bowel incontinence, flatulence. Exam: 02:10 Head/Face: Normocephalic, atraumatic. Eyes: Pupils equal round and reactive to light, mh7 extra-ocular motions intact. Lids and lashes normal. Conjunctiva and sclera are non-icteric and not injected. Cornea within normal limits. Periorbital areas with no swelling, redness, or edema. Neck: Trachea midline, no thyromegaly or masses palpated, and no cervical lymphadenopathy. Supple, full range of motion without nuchal rigidity, or vertebral point tenderness. No Meningismus. Chest/axilla: Normal chest wall appearance and motion. Nontender with no deformity. No lesions are appreciated. 02:10 Respiratory: Lungs have equal breath sounds bilaterally, clear to auscultation and percussion. No rales, rhonchi or wheezes noted. No increased work of breathing, no retractions or nasal flaring. Abdomen/GI: Soft, non-tender, with normal bowel sounds. No distension or tympany. No guarding or rebound. No evidence of tenderness throughout. Back: No spinal tenderness. No costovertebral tenderness. Full range of motion. 02:10 Neuro: Awake and alert, GCS 15, oriented to person, place, time, and situation. Cranial nerves II-XII grossly intact. Motor strength 5/5 in all extremities. Sensory grossly intact. Cerebellar exam normal. Normal gait. Psych: Awake, alert, with orientation to person, place and time. Behavior, mood, and affect are within normal limits. 02:10 Constitutional: The patient appears in no acute distress, alert, awake, uncomfortable. 02:10 Cardiovascular: Rate: tachycardic, Rhythm: regular, Pulses: no pulse deficits are appreciated, Heart sounds: normal, normal S1and S2, Edema: is not appreciated, JVD: is not appreciated. 02:10 Musculoskeletal/extremity: Extremities: noted in the right foot plantar aspect: open wound, multiple toes amputated on right foot, ROM: intact in all extremities, Circulation is intact in all extremities. Sensation intact. Compartment Syndrome exam of affected extremity: is normal. no numbness, no tingling, no sensation deficit, no palor, no weak pulses, Joints: All joints appear normal with full range of motion. Vital Signs: 02:01 BP 143 / 96; Pulse 116; Resp 22; Temp 98.3; Pulse Ox 97% on R/A; Weight 97.52 kg; tw5 Height 6 ft. 1 in. (185.42 cm); Pain 9/10; 03:00 BP 128 / 90; Pulse 104; Resp 16 S; Pulse Ox 96% on R/A; as6 03:16 Pain 5/10; tw5 04:00 BP 159 / 99; Pulse 104; Resp 17 S; Pulse Ox 96% on R/A; as6 05:00 BP 122 / 86; Pulse 106; Resp 17 S; Pulse Ox 98% on R/A; as6 06:00 BP 122 / 83; Pulse 98; Resp 14 S; Pulse Ox 97% on R/A; as6 02:01 Body Mass Index 28.37 (97.52 kg, 185.42 cm) tw5 MDM: 04:55 Differential diagnosis: fracture, sprain, cellulitis. Data reviewed: vital signs, 7 nurses notes, lab test result(s), CBC, electrolytes, radiologic studies, plain films. Data interpreted: Pulse oximetry: on room air is 97 %. Interpretation: normal. Counseling: I had a detailed discussion with the patient and/or guardian regarding: the historical points, exam findings, and any diagnostic results supporting the discharge/admit diagnosis, the presence of at least one elevated blood pressure reading (>120/80) during this emergency department visit, lab results, radiology results, the need for further work-up and treatment in the hospital. Response to treatment: the patient's symptoms have mildly improved after treatment. 04:59 Patient medically screened. [facility] 12/23 02:12 Order name: COVID-19 SARS RT PCR (Document "Date of Onset" if Symptomatic); Complete tw5 Time: 04:03 12/23 02:12 Order name: Flu; Complete Time: 03:15 tw5 12/23 02:16 Order name: Wound Culture [facility] 12/23 02:17 Order name: Blood Culture Adult (2) [facility] 12/23 02:17 Order name: CBC with Diff; Complete Time: 03:15 [facility] 12/23 02:17 Order name: CMP; Complete Time: 03:15 [facility] 12/23 02:17 Order name: Lactate; Complete Time: 03:15 [facility] 12/23 02:17 Order name: Protime (+inr); Complete Time: 03:15 [facility] 12/23 02:17 Order name: Ptt, Activated; Complete Time: 03:15 [facility] 12/23 02:17 Order name: Urine Culture [facility] 12/23 02:25 Order name: Glucose, Ancillary Testing; Complete Time: 03:15 EDMS 12/23 05:48 Order name: Lactate Sepsis 2 HR Follow-up; Complete Time: 05:52 EDMS 12/23 07:20 Order name: Urine Dipstick-Ancillary EDMS 12/23 02:17 Order name: Chest Single View XRAY [facility] 12/23 02:17 Order name: Accucheck; Complete Time: 02:22 [facility] 12/23 02:17 Order name: Cardiac monitoring; Complete Time: 02:22 [facility] 12/23 02:17 Order name: EKG - Nurse/Tech; Complete Time: 04:59 [facility] 12/23 02:17 Order name: IV Saline Lock - Large Bore; Complete Time: 02:22 [facility] 12/23 02:17 Order name: Labs collected and sent; Complete Time: 02:22 [facility] 12/23 02:18 Order name: Foot Right 3 View XRAY [facility] 12/23 17:00 Order name: Glucose, Ancillary Testing [facility] 12/23 02:17 Order name: O2 Per Protocol; Complete Time: 02:23 [facility] 12/23 02:17 Order name: O2 Sat Monitoring; Complete Time: 02:23 [facility] 12/23 02:17 Order name: Urine Dipstick-Ancillary (obtain specimen); Complete Time: 07:18 7 Administered Medications: 02:54 Drug: NS 0.9% 1000 ml Route: IV; Rate: 1000 ml; Site: right antecubital; as6 02:54 Drug: Zofran (Ondansetron) 4 mg Route: IVP; Site: right antecubital; as6 03:16 Follow up: Response: No adverse reaction tw5 02:55 Drug: morphine 4 mg Route: IVP; Infused Over: 4 mins; Site: right antecubital; as6 03:16 Follow up: Pain 5/10 Adult; Response: Adverse reaction, Physician notified; Pain is tw5 decreased; RASS: Alert and Calm (0) 02:55 Drug: Zosyn (piperacillin-tazobactam) 3.375 grams Route: IVPB; Infused Over: 60 mins; as6 Site: right antecubital; 06:38 Follow up: Response: No adverse reaction; IV Status: Completed infusion; IV Intake: as6 100ml 04:07 Drug: vancoMYCIN 1 grams Route: IVPB; Infused Over: 2 hrs; Site: right antecubital; as6 06:37 Follow up: Response: No adverse reaction; IV Status: Completed infusion; IV Intake: as6 250ml 05:10 Drug: Dilaudid (HYDROmorphone) 1 mg Route: IVP; Site: right antecubital; as6 06:38 Follow up: Response: No adverse reaction as6 08:57 Not Given (Duplicate Order): Sodium Hypochlorite Solution 0.0125 % 1 application pretty Topical once 09:26 Drug: Sodium Hypochlorite Solution 0.25 % 1 application Route: Topical; Site: wound; pretty Disposition Summary: 12/23/21 04:59 Hospitalization Ordered Hospitalization Status: Inpatient Admission [facility] Provider: Apple Florence Sha Condition: Stable [facility] Problem: an acute exacerbation [facility] Symptoms: have improved [facility] Bed/Room Type: Standard [facility] Location: Telemetry/MedSurg (Inpatient)(12/23/21 16:29) bd Room Assignment: 405(12/23/21 16:29) bd Diagnosis - Diabetic Foot Infection [facility] Forms: - Medication Reconciliation Form mh7 - SBAR form 7 Signatures: Dispatcher [employer] EDMS John Lakeshia bd Enrrique Poe MD MD rn Garcia, Cindy RN Pernell Lyons MD MD 7 Janene Sandoval tw5 David Brantley RN RN as6 Au-StagerCait RN Estella Reyes, PA PA sb3 Corrections: (The following items were deleted from the chart) 05:15 04:59 Telemetry/MedSurg (Inpatient) [facility] cg 05:15 04:59 [facility] [place] 08:47 08:46 ED course: Signed out to me by Dr. Radford, plan was to dc home after tachycardia rn improves, nursing states has improved, stable vitals. Otherwise Dr. Radford states cleared for discharge. . rn 16:29 05:15 [facility] ER HOLD cg bd 16:29 05:15 ERHOLD- bd
--- NOTE | 2021-12-23 05:00 | ER ---
Nurse's Notes [facility] Name: Christian Lee Age: 41 yrs Sex: Male : 1980 Arrival Date: 12/23/2021 Time: 01:54 Bed 17 Private MD: Diagnosis: Diabetic Foot Infection Presentation: 12/23 02:01 Chief complaint: Patient states: "I started feeling pain in my right foot in the tw5 bottom, then somewhere along the line i started throwing up and chills . Now I have really bad pain and burning sensation around the wound.". Coronavirus screen: Vaccine status: Patient reports receiving the 2nd dose of the covid vaccine. Moderna. Ebola Screen: Patient negative for fever greater than or equal to 101.5 degrees Fahrenheit, and additional compatible Ebola Virus Disease symptoms Patient denies exposure to infectious person. Patient denies travel to an Ebola-affected area in the 21 days before illness onset. Initial Sepsis Screen: Does the patient meet any 2 criteria? RR > 20 per min. HR > 90 bpm. Does the patient have a suspected source of infection? Yes: Skin breakdown/wound. Risk Assessment: Do you want to hurt yourself or someone else? Patient reports no desire to harm self or others. Onset of symptoms was December 22, 2021. 02:01 Method Of Arrival: Wheelchair tw5 02:01 Acuity: IRINEO 3 tw5 02:05 Initial Sepsis Screen: If YES to both, name of provider notified: Pernell Radford MD tw5 Triage Assessment: 02:03 General: Appears uncomfortable, Behavior is calm, cooperative, appropriate for age. tw5 Pain: Complains of pain in right foot Pain currently is 9 out of 10 on a pain scale. GI: Reports nausea, vomiting. Historical: - Allergies: 02:03 Clonidine; tw 02:03 Compazine; tw 02:03 [place]; GI problems; tw 02:03 Reglan; tw 02:03 tramadol; GI problems; tw5 - Home Meds: 02:03 Lantus Sub-Q [Active]; lisinopril-hydrochlorothiazide Oral [Active]; Motilium [Active]; tw5 Simvastatin Oral [Active]; Novolog Sub-Q [Active]; nortriptyline Oral [Active]; - PMHx: 02:03 diabetes mellitus; Gastroparesis; Hypertensive disorder; insomnia; neuropathy; tw5 - PSHx: 02:03 2nd toe amputation R foot; 3rd and 4th toe amputation to Right foot; tw5 - Immunization history:: Flu vaccine is not up to date. - Social history:: Smoking status: Patient denies any tobacco usage or history of. Screenin:05 Abuse screen: Denies threats or abuse. Denies injuries from another. Nutritional tw5 screening: No deficits noted. Tuberculosis screening: No symptoms or risk factors identified. Fall Risk Secondary diagnosis (15 points). Assessment: 02:05 General: Appears uncomfortable, Behavior is calm, cooperative, appropriate for age. tw5 Pain: Pain currently is 9 out of 10 on a pain scale. Neuro: Level of Consciousness is awake, alert, obeys commands. GI: Abdomen is non-distended. Musculoskeletal: Amputation of right second toe, right third toe, right fourth toe and right fifth toe. Vital Signs: 02:01 BP 143 / 96; Pulse 116; Resp 22; Temp 98.3; Pulse Ox 97% on R/A; Weight 97.52 kg; tw5 Height 6 ft. 1 in. (185.42 cm); Pain 9/10; 03:00 BP 128 / 90; Pulse 104; Resp 16 S; Pulse Ox 96% on R/A; as6 03:16 Pain 5/10; tw5 04:00 BP 159 / 99; Pulse 104; Resp 17 S; Pulse Ox 96% on R/A; as6 05:00 BP 122 / 86; Pulse 106; Resp 17 S; Pulse Ox 98% on R/A; as6 06:00 BP 122 / 83; Pulse 98; Resp 14 S; Pulse Ox 97% on R/A; as6 02:01 Body Mass Index 28.37 (97.52 kg, 185.42 cm) tw5 ED Course: 01:54 Patient arrived in ED. bp1 01:56 David Brantley RN is Primary Nurse. as6 02:03 Triage completed. tw5 02:03 Arm band placed on Patient placed in an exam room, on a stretcher, on oxygen, on tw5 vehicle monitor technician, on pulse oximetry. 02:05 Primary Nurse role handed off by David Brantley RN tw5 02:05 Janene Sandoval is Primary Nurse. tw5 02:05 Patient has correct armband on for positive identification. Bed in low position. Call tw5 light in reach. Side rails up X 1. Client placed on continuous cardiac and pulse oximetry monitoring. NIBP monitoring applied. Door closed. Noise minimized. Moved to private room. Warm blanket given. Verbal reassurance given. 02:07 Pernell Radford MD is Attending Physician. 7 02:23 Inserted saline lock: 20 gauge in right antecubital area, using aseptic technique. as6 Blood collected. 02:23 Blood Culture Adult (2) Sent. as6 02:23 CBC with Diff Sent. as6 02:23 CMP Sent. as6 02:23 Lactate Sent. as6 02:23 Protime (+inr) Sent. as6 02:23 Ptt, Activated Sent. as6 02:23 Wound Culture Sent. as6 02:23 Flu Sent. as6 02:23 COVID-19 SARS RT PCR (Document "Date of Onset" if Symptomatic) Sent. as6 02:35 Wound Culture Sent. tw5 02:35 Flu Sent. tw5 02:35 COVID-19 SARS RT PCR (Document "Date of Onset" if Symptomatic) Sent. tw5 02:36 Wound care: to decubitus located on ball of right foot was wet to dry dressing applied. tw5 03:08 Chest Single View XRAY In Process Unspecified. EDMS 03:08 Foot Right 3 View XRAY In Process Unspecified. EDMS 03:17 Blood Culture Adult (2) Sent. tw5 04:56 Apple Florence MD is Hospitalizing Provider. 7 06:38 No provider procedures requiring assistance completed. Patient admitted, IV remains in as6 place. 07:59 Primary Nurse role handed off by Janene Sandoval bd 08:13 Cait Adams, RN is Primary Nurse. pretty 08:46 Attending Physician role handed off by Pernell Radford MD rn 08:46 Enrrique Poe MD is Attending Physician. rn 08:48 Pernell Radford MD is Attending Physician. rn Administered Medications: 02:54 Drug: NS 0.9% 1000 ml Route: IV; Rate: 1000 ml; Site: right antecubital; as6 02:54 Drug: Zofran (Ondansetron) 4 mg Route: IVP; Site: right antecubital; as6 03:16 Follow up: Response: No adverse reaction tw5 02:55 Drug: morphine 4 mg Route: IVP; Infused Over: 4 mins; Site: right antecubital; as6 03:16 Follow up: Pain 5/10 Adult; Response: Adverse reaction, Physician notified; Pain is tw5 decreased; RASS: Alert and Calm (0) 02:55 Drug: Zosyn (piperacillin-tazobactam) 3.375 grams Route: IVPB; Infused Over: 60 mins; as6 Site: right antecubital; 06:38 Follow up: Response: No adverse reaction; IV Status: Completed infusion; IV Intake: as6 100ml 04:07 Drug: vancoMYCIN 1 grams Route: IVPB; Infused Over: 2 hrs; Site: right antecubital; as6 06:37 Follow up: Response: No adverse reaction; IV Status: Completed infusion; IV Intake: as6 250ml 05:10 Drug: Dilaudid (HYDROmorphone) 1 mg Route: IVP; Site: right antecubital; as6 06:38 Follow up: Response: No adverse reaction as6 08:57 Not Given (Duplicate Order): Sodium Hypochlorite Solution 0.0125 % 1 application pretty Topical once 09:26 Drug: Sodium Hypochlorite Solution 0.25 % 1 application Route: Topical; Site: wound; pretty Medication: 02:05 VIS not applicable for this client. tw5 Intake: 06:37 IV: 250ml; Total: 250ml. as6 06:38 IV: 100ml; Total: 350ml. as6 Outcome: 04:59 Decision to Hospitalize by Provider. mh7 06:38 Admitted to ER Hold. Please see [facility] for further documentation. as6 06:38 Condition: stable 06:38 Instructed on the need for admit. 17:15 Admitted to Med/surg accompanied by tech, room 405. pretty 17:16 Patient left the ED. pretty Signatures: Dispatcher [employer] EDMS Lakeshia Lopez Roman, MD MD rn Paniauga, Brittany bp1 Holmes, Maurice, MD MD 7 Janene Sandoval tw5 David Brantley RN RN as6 Cait Adams RN RN pretty
[2021-12-23] MEDS ORDERED: HYDROMORPHONE HCL 1 MG/ML INJ ONE ×4 (05:14→16:54)
[2021-12-23] MEDS: NA CHLORIDE 0.9% 1,000 ML IV SCH ×3 (05:41→18:36)
[2021-12-23] MEDS ORDERED: VANCOMYCIN 1 GM in NA CHLORIDE 0.9% 250 ML IVPB SCH (05:41)
[2021-12-23] MEDS ORDERED: ACETAMINOPHEN 500 MG TAB PO PRN (05:41)
[2021-12-23] MEDS ORDERED: VANCOMYCIN 750 MG in NA CHLORIDE 0.9% 150 ML IVPB ONE (06:15)
[2021-12-23 07:19] LABS: Urine Blood 2+ (Negative); Urine Glucose 2+ (Negative); Urine Protein 1+ (Negative); Urine Specific Gravity >=1.030 (1.005-1.030)
[2021-12-23] MEDS: INSULIN -REGULAR HUMAN 50 UNIT/0.5 ML ML SQ SCH ×4 (07:30→20:58)
[2021-12-23] MEDS ORDERED: ENOXAPARIN 40 MG/0.4 ML SQ ONE (08:46)
[2021-12-23] MEDS ORDERED: NA CHLORIDE 0.9% 500 ML ONE (08:51)
[2021-12-23] MEDS: PIPER TAZO 3.375 GM in NA CHLORIDE 0.9% 100 ML IV SCH ×2 (09:00→17:14)
[2021-12-23] MEDS: ENOXAPARIN 40 MG/0.4 ML SQ SCH (09:00)
[2021-12-23] MEDS: ONDANSETRON 4 MG/2 ML VIAL IV PRN ×3 (09:10→16:49)
[2021-12-23] MEDS: HYDROMORPHONE HCL 1 MG/ML INJ IV PRN ×4 (09:10→21:18)
[2021-12-23] MEDS ORDERED: SODIUM HYPOCHLORITE 0.25% 473 ML TOP ONE (09:30)
--- NOTE | 2021-12-23 13:44 | EKG ---
Test Date: 2021-12-23 Test Time: 03:36:52 [employer] Layout: LICHA MEASUREMENT RESULTS: Intervals: Rate: 103 WV: 126 QRSD: 78 QT: 356 QTc: 466 Leivasy: P: 39 WV: 126 QRS: 56 T: 28 INTERPRETIVE STATEMENTS: Sinus tachycardia Otherwise normal ECG Compared to ECG 12/08/2021 01:58:12 No significant changes Electronically Signed On 12-23-21 13:42:56 CDT by Kyler Billings
--- NOTE | 2021-12-23 14:42 | RAD REPORT ---
EXAM DESCRIPTION: RAD - Chest Single View - 12/23/2021 3:07 am CLINICAL HISTORY: 41 years Male, CONGESTION COMPARISON: 09/15/2021 TECHNIQUE: Single portable x-ray view of the chest performed on 12/23/2021 at 2:59 AM FINDINGS: The lungs are well expanded and are clear. There is no evidence of a pneumothorax. The cardiac silhouette is normal in size and configuration. The mediastinal contours are normal. No acute osseous abnormality is identified. No acute soft tissue abnormalities are seen. Lines and tubes: None. Free air: None IMPRESSION: No evidence of acute intrathoracic disease. Electronically signed by: Isabela Ambriz DO 12/23/2021 3:54 AM CDT Due to temporary technical issues with the PACS/Fluency reporting system, reports are being signed by the in house radiologists without review as a courtesy to insure prompt reporting. The interpreting radiologist is fully responsible for the content of the report.
--- NOTE | 2021-12-23 14:44 | RAD REPORT ---
EXAM DESCRIPTION: RAD - Foot Right 3 View - 12/23/2021 3:07 am CLINICAL HISTORY: 41 years Male open plantar wound TECHNIQUE: Three x-ray views of the right foot were performed on 12/23/2021 and 3:00 AM. COMPARISON: 09/15/2021 FINDINGS: Again demonstrated are postsurgical changes of the right foot consistent with amputation o f the phalanges of the second through fourth digits. There are degenerative changes involving the fir st metatarsal phalangeal joint and there is chronic sclerosis and mild deformity of the proximal phal anx of the first digit. There is a chronic erosion involving the head of the third metatarsal. Bone mineralization is normal. There is mild soft tissue swelling along the plantar aspect of the mid to distal foot. There is overl aggie bandage material. No definite subcutaneous emphysema is appreciated. There appears to be a small soft tissue ulceration adjacent to the first metatarsal phalangeal joint. Arterial vascular calcific ations are noted. IMPRESSION: 1. No evidence of acute osseous injury. 2. Postsurgical changes of the right foot as described above. 3. Mild soft tissue swelling along the plantar aspect of the mid to distal foot. No definite subcut aneous emphysema is appreciated. 4. Arterial vascular calcifications. 5. Degenerative changes of the first metatarsophalangeal joint. There appears to be a small soft ti ssue ulceration adjacent to the first MTP joint. Electronically signed by: Isabela Ambriz DO 12/23/2021 4:00 AM CDT Due to temporary technical issues with the PACS/Fluency reporting system, reports are being signed by the in house radiologists without review as a courtesy to insure prompt reporting. The interpreting radiologist is fully responsible for the content of the report.
[2021-12-23 18:14] VITALS: O2SAT 97
[2021-12-23] MEDS ORDERED: PROMETHAZINE INJ 25 MG/ML AMP IV ONE (19:40)
[2021-12-23] MEDS ORDERED: VANCOMYCIN 1.75 GM in NA CHLORIDE 0.9% 500 ML IVPB SCH ×2 (20:00→21:00)
[2021-12-23] MEDS ORDERED: PROMETHAZINE INJ 25 MG/ML AMP ONE (20:10)
[2021-12-23] MEDS: VANCOMYCIN 1.5 GM in NA CHLORIDE 0.9% 500 ML IVPB SCH (21:03)
[2021-12-24] MEDS: PIPER TAZO 3.375 GM in NA CHLORIDE 0.9% 100 ML IV SCH ×2 (00:54→09:03)
[2021-12-24] MEDS: ONDANSETRON 4 MG/2 ML VIAL IV PRN ×3 (00:55→09:02)
[2021-12-24] MEDS: HYDROMORPHONE HCL 1 MG/ML INJ IV PRN ×4 (00:55→13:07)
[2021-12-24 04:03] LABS: Absolute Lymphocytes (CBC) 1.5 K/uL (0.7-4.9); Hematocrit 35.3 % (39.6-49.0); Lymphocytes % 25.9 % (15.3-44.8); MCV 89.4 fL (80-100); MPV 7.7 fL (7.6-11.3); RBC Red Blood Cell Count 3.95 M/uL (4.33-5.43)
[2021-12-24 04:07] LABS: Phosphorus 2.6 mg/dL (2.5-4.9); Potassium 3.7 mmol/L (3.5-5.1)
[2021-12-24] MEDS: NA CHLORIDE 0.9% 1,000 ML IV SCH (06:21)
[2021-12-24 07:11] VITALS: BMI 28.3
[2021-12-24] MEDS ORDERED: POTASSIUM CL SA 10 MEQ TAB PO ONE (09:00)
[2021-12-24] MEDS: ENOXAPARIN 40 MG/0.4 ML SQ SCH (09:02)
[2021-12-24] MEDS: INSULIN -REGULAR HUMAN 50 UNIT/0.5 ML ML SQ SCH ×2 (09:03→11:36)
[2021-12-24] MEDS: VANCOMYCIN 1.5 GM in NA CHLORIDE 0.9% 500 ML IVPB SCH (09:03)
--- NOTE | 2021-12-24 11:00 | P.PN ---
Subjective Date of Service: 12/24/21 Chief Complaint: Cellulitus R Foot Subjective: Improving (Patient denies pain currently) Physical Examination - Vital Signs Temperature: 97.3 F Blood Pressure: 156/87 Pulse: 108 Respirations: 16 Pulse Ox (%): 93 - Physical Exam General: Alert, In no apparent distress, Cooperative Integumentary: Other (no cellulitis, open wound of RIGHT plantar foot, no drainage, minimal hypertrophic granulation tissue) Assessment And Plan - Current Problems (Diagnosis) (1) Diabetic foot ulcer Current Visit: Yes Status: Chronic Plan: - no signs of infection of RIGHT foot - continue daily dressing changes of RIGHT plantar foot wound - wrap and elevate, dakins daily damp to dry - antibiotics per Dr. Florence - follow up in my clinic within 1 week of discharge when ok from medical standpoint - non-weight bearing to RIGHT foot, discussed with patient - diabetic control reviewed with patient - orthotic shoe referral made for patient - discussed follow up with endovacular radiologist after discharge Qualifiers: Diabetic foot ulcer location: midfoot Diabetes mellitus type: type 1 Laterality: right Non-pressure ulcer stage: with fat layer exposed Qualified Code(s): E10.621 - Type 1 diabetes mellitus with foot ulcer; L97.412 - Non- pressure chronic ulcer of right heel and midfoot with fat layer exposed
[2021-12-24 11:42] VITALS: BP 137/72; TEMP 97.6
--- NOTE | 2021-12-24 12:43 | CON ---
Date of Consultation: 12/23/2021 Brief History Of Present Illness: The patient is a 41-year-old male, known to me from previous surgi ramona intervention to his right foot. He had a plantar wound, which has been debrided multiple times. He has had multiple toes amputated due to peripheral arterial disease and diabetic wounds. He has b een taking care of successfully for the most part without any evidence of recurrent infection. He co mes in with concern of tenderness over the right foot area. He has been dealing with this for over 9 years. He came in complaining only of pain at this area. Past Medical History: Significant for diabetes, gastroparesis, neuropathy, hyperlipidemia, hypertens ion, osteomyelitis. Past Surgical History: Includes cholecystectomy, gastric neurologic stimulator implant for gastropar esis, right foot diabetic ulcer debridement, multiple vascular procedures of the right lower extremit y, amputation of 3 toes of the right foot, debridements of the right foot as well. Home Medications: Include NovoLog insulin, Pamelor, zolpidem, famotidine, simvastatin, intermittent Augmentin, Tylenol 3 intermittently. Allergies: TO NORCO, RAGLAN, COMPAZINE, CLONIDINE. Family History: Significant for diabetes and cancer. Social History: He denies smoking, alcohol, or recreational drug use. Review of Systems: Ten-point review of systems other than HPI, denies. Physical Examination: General: At the time of my examination; he is awake, alert, and oriented. Psychiatric: Appropriate, conversive. HEENT: Normocephalic. Sclerae anicteric. Mucous membranes are moist. Oropharynx clear. Neck: Supple without JVD. Chest: Normal expansion and excursion. Cardiovascular: Regular rate and rhythm. Pulmonary: Clear to auscultation bilaterally. Extremities: Focused examination of right lower extremity shows no swelling or tenderness of the are a. No drainable collections. No signs of infection. No erythematous changes. There was an exposed wound on the plantar aspect of the foot with hypertrophic granulation tissue, but no obvious infecti on. No fibrinous buildup. The remainder of the surgical site appears clean and dry without any evid ence of infection. Diagnostic Studies: He had imaging performed including laboratory work. His laboratory report revea led a white blood cell of 7.9, hemoglobin 13.9, hematocrit 40.8, platelet count is 412. His coags we re PT 10.5, INR 0.96, PTT 39.3. Chemistry showed a sodium 139, potassium 3.8, chloride 105, carbon d ioxide 26, BUN is 18, creatinine is 1.03, glucose is 195. His lactic acid was 3.3, total bilirubin 0 .4, direct component not measured. AST 25, ALT 57, alkaline phosphatase 109. His serology showed a negative COVID report. He also had x-ray of the foot, officially read on 12/23/2021 as no evidence o f acute osseous injury, postsurgical changes of right foot as described, mild soft tissue swelling al marquita the plantar aspect of mid to distal foot, no definite subcutaneous emphysema appreciated, arteria l vascular calcification, degenerative changes of the first metatarsophalangeal joint appears to be a small tissue ulceration just to the first MTP joint. Assessment And Plan: This is a 41-year-old male, who presents with foot pain after above stated surg ical history. 1.IV fluid hydration. 2.Antibiotic coverage. 3.Pain control. 4.Daily dressing changes with Dakin's/Bausch and Santyl to continue. There is no evidence of acute infection of the foot at this point. Continue medical management. I have explained the risks, benef its, and alternatives of the above stated plan. The patient agrees to proceed as indicated. Thank you for this interesting consult. TYESHA/ANNA Voice ID: [id number] Report ID: [id number]
== END 2021-12-24 15:58 | disposition home or self-care (01) ==
LOC: ER 01:52 → INTOOBSV 04:46 → ERHOLD 04:46 → 4TH 16:45
PROVIDERS: ADMIT Hospitalist; ATTEND Hospitalist
DX: E10.621 Type 1 diabetes mellitus with foot ulcer (principal); L97.412 Non-pressure chronic ulcer of right heel and midfoot with fat layer exposed; E10.65 Type 1 diabetes mellitus with hyperglycemia; I10 Essential (primary) hypertension; R00.0 Tachycardia, unspecified; R06.82 Tachypnea, not elsewhere classified; E10.43 Type 1 diabetes mellitus with diabetic autonomic (poly)neuropathy; K31.84 Gastroparesis; E10.40 Type 1 diabetes mellitus with diabetic neuropathy, unspecified; I73.9 Peripheral vascular disease, unspecified; E78.5 Hyperlipidemia, unspecified; G47.00 Insomnia, unspecified; Z20.822 Contact with and (suspected) exposure to COVID-19; Z79.4 Long term (current) use of insulin; Z79.899 Other long term (current) drug therapy; Z88.5 Allergy status to narcotic agent; Z88.6 Allergy status to analgesic agent; Z88.8 Allergy status to other drugs, medicaments and biological substances; Z89.421 Acquired absence of other right toe(s); Z90.49 Acquired absence of other specified parts of digestive tract; Z83.3 Family history of diabetes mellitus; Z80.9 Family history of malignant neoplasm, unspecified
CPT/HCPCS: 36415; 71045; 80048; 80053; 81003; 82947; 83036; 83605; 83735; 84100; 85025; 85610; 85730; 87040; 87070; 87077; 87086; 87088; 87186; 87205; 87804; 93005; 96365; 96366; 96375; 99251; 99285; G0378; J1170; J1650; J1815; J2405; J2543; J2550; J3370; J7030; J7040; J7050; U0003

== ENCOUNTER 2022-07-07 01:47 | Inpatient (IN) | payer OTHER ==
--- OUTSIDE RECORDS SUMMARY | 2022-07-07 01:56 | XMS REPORT | Continuity of Care Document ---
:1980 Author Organization [facility] t Address [address] [place] [address] Care Team Providers Name Role Phone Sandra Carrasco MD Primary Care Physician [phone] SANDRA CARRASCO Attending Clinician Unavailable Sandra Carrasco MD Attending Clinician Doctor Unassigned, [place] Attending Clinician Unavailable TYREE JEFFERS Attending Clinician Unavailable Aide Cai Attending Clinician TONI CRAMER Attending Clinician Unavailable DOMINIQUE OCHOA Attending Clinician Unavailable AIDE TINAJERO Attending Clinician Unavailable VELIA COLLADO Attending Clinician Unavailable ROLAND ESCALANTE Attending Clinician Unavailable Yaquelin Smith MD Attending Clinician Alli Garcia Attending Clinician ALLI LEDESMA Attending Clinician Unavailable KNOW, DOES_NOT Attending Clinician Unavailable Wilmer William Attending Clinician Unavailable Galindo Chris Admitting Clinician Unavailable Wilmer William Admitting Clinician Unavailable Payers Payer Name Policy Type Policy Number Effective Date Expiration Date S ource GENERIC COMMERCIAL [id number] 2016 00:00:00 MEDICARE-PART B 5 [id number] 2021 00:00:00 Problems Condition Condition Condition Status Onset Resolution Last Treating Co mments Source Name Details Category Date Date Treatment Clinician Date Tachycardi Tachycardi Disease Active U nivers a a -24 ity of 00:00: [place] 00 Medical Branch Type 1 Type 1 Disease Active Univers diabetes diabetes 24 ity of mellitus mellitus 00:00: [place] with with 00 Medical diabetic diabetic Branch polyneurop polyneurop athy athy Ear pain, Ear pain, Disease Active Uni vers bilateral bilateral 24 ity of 00:00: [place] 00 Medical Branch Allergies, Adverse Reactions, Alerts Allergy Allergy Status Severity Reaction(s) Onset Inactive Treating Comm ents Source Name Type Date Date Clinician CLONIDIN DRUG Active Anxiety Univers E INGREDI -24 ity of 00:00: [place] 00 Medical Branch PROCHLOR DRUG Active Anxiety Univers PERAZINE INGREDI -24 ity of 00:00: [place] 00 Medical Branch HYDROCOD DRUG Active Other-Cmnt 0 Univ ers ONE INGREDI -24 ity of 00:00: [place] 00 Medical Branch METOCLOP DRUG Active Other-Cmnt 0 Univ ers RAMIDE INGREDI -24 ity of 00:00: [place] 00 Medical Branch TRAMADOL DRUG Active Other-Cmnt 0 Univ ers INGREDI -24 ity of 00:00: [place] 00 Medical Branch Clonidin Propensi Active Anxiety Unive rs e ty to 1-24 ity [...] See Severe U nivers ty to comments 1-24 stomach ity of adverse 00:00: pain [place] reaction 00 Medical s Branch prochlor DA Active MS ITCHING [facility] perazine 08-13 [facility] prochlor DA Active MS 2020-0 [facility] perazine 08-13 [facility] 00:[facility] haloperi DA Active U 2020-0 [facility] dol 01-21 [facility] 00:[facility] haloperi DA Active U STOMACH ACHE 2019-0 [facility] dol 01-21 [facility] 00:[facility] metoclop DA Active U 2020-0 [facility] ramide 11-30 [facility] 00:[facility] metoclop DA Active U JERKS AND 2020-0 [facility] SPASMS 11-30 [facility] 00:[facility] clonidin DA Active U 2020-0 [facility] e 05-20 [facility] 00:[facility] metoclop DA Active U 2020-0 [facility] ramide 05-20 [facility] 00:[facility] clonidin DA Active U ANXIETY 2020-0 [facility] e 05-20 [facility] 00:[facility] metoclop DA Active U MUSCLE 2020-0 [facility] ramide SPASMS 05-20 [facility] 00:[facility]: [facility] clonidin DA Active U 2018-0 [facility] e 01-16 [facility] 00:[facility]: [facility] metoclop DA Active U 2018-0 [facility] ramide 01-16 [facility] 00:[facility] clonidin DA Active U ANXIETY 2018-0 [facility] e 01-16 [facility] 00:[facility] metoclop DA Active U MUSCLE 2018-0 [facility] ramide SPASMS 01-16 [facility] 00:00: [facility] clonidin DA Active U 2018-0 [facility] e 11-25 [facility] 00:[facility] metoclop DA Active U 2018-0 [facility] ramide 11-25 [facility] 00:[facility] Clonidin Propensi Active Other (See 2017-[address] [facility] [address] [facility] to Comments) 4- [facility] adverse [facility]: Medical reaction 00 Center s Metoclop Propensi Active Other (See Muscle [facility] to Comments) 4 spasms [facility] adverse 00:00: Medical reaction 00 Center s CLONIDIN Allergy Active Other [facility]07 [facility] 00[facility] METOCLOP Allergy Active Other [facility] RAM[facility] 4-07 [facility] 00:[facility]: Medical 00 Center Social History Social Habit Start Date Stop Date Quantity Comments Source History SDOH University o f Alcohol Frequency [place] M ed[facility] History SDOH University o f Alcohol Std [place] [facility] Drinks Branch History SDOH University o f Alcohol Binge [place] [facility] al Branch Exposure to 2022-03-09 2022-03-19 Not sure University SARS-CoV-2 00:00:00 15:57:00 [facility] (event) [place] Alcohol Comment 2021-06-10 2021-06-10 seldomly Universit y of 00:00:00 00:00:00 [facility] Tobacco use and 2021-05-25 2021-05-25 Smokeless tobacco Un iversity of exposure 00:00:00 00:00:00 non-user [facility] Sex Assigned At [address] [facility] k[facility] 00:00:00 00:00:00 Medical Center Smoking Status Start Date Stop Date Source Never smoked tobacco [facility] Medications Ordered Filled Start Stop Current Ordering Indication Dosage Frequency Signature Comments Components Source Medication Medication Date Date Medication? Clinician (SIG) Name Name DELANEY Yes [id number] 50mg TAKE 1 Univers NE 50 mg 2-03 CAPSULE BY ity o f capsule 00:00: MOUTH AT [place] 00 BEDTIME Medical Branch insulin 2021-05 Yes [id number] 50U inject 50 U nivers glargine 2-12 Units ity of (LANTUS 00:00: under the [place] U-100 00 skin at Medical INSULIN) bedtime. Branch 100 unit/mL injection insulin 2021-05 Yes [id number] 50U inject 50 U nivers glargine 2-12 Units ity of (LANTUS 00:00: under the [place] U-100 00 skin at Medical INSULIN) bedtime. Branch 100 unit/mL injection rosuvastati 2021-05- No Take by Un pasha n 5 mg CpSP 1-02 03-19 mouth. ity o f 16:24: 00:00 [place] 10 :00 Medical Branch rosuvastati 2021-05- No Take by Un pasha n 5 mg CpSP -02 03-19 mouth. ity o f 16:24: 00:00 10 :00 Medical Branch rosuvastati 2021-05- No Take by Un pasha n 5 mg CpSP -02 03-19 mouth. ity o f 16:24: 00:00 10 :00 Medical Branch rosuvastati 2021-05 Yes [id number] 5mg Take 5 mg Univers n 5 mg CpSP 1-02 by mouth ity of 00:00: daily. Medical Branch zolpidem 10 2021-05 Yes [id number] 10mg Take 1 U nivers mg tablet 1-02 tablet by ity o f 00:00: mouth at [place] [address] bedtime. Medical Branch rosuvastati 2021-05 Yes [id number] 5mg Take 5 mg Univers n 5 mg CpSP 1-02 by mouth ity of 00:00: daily. Medical Branch zolpidem 10 2021-05 Yes [id number] 10mg Take 1 U nivers mg tablet 1-02 tablet by ity o f 00:00: mouth at [place] [address] bedtime. Medical Branch rosuvastati 2021-05 Yes [id number] 5mg Take 5 mg Univers n 5 mg CpSP 1-02 by mouth ity of 00:00: daily. Medical Branch zolpidem 10 2021-05 Yes [id number] 10mg Take 1 U nivers mg tablet 1-02 tablet by ity o f 00:00: mouth at [place] [address] bedtime. Medical Branch rosuvastati 2021-05 Yes [id number] 5mg Take 5 mg Univers n 5 mg CpSP 1-02 by mouth ity of 00:00: daily. Medical Branch zolpidem 10 2021-05 Yes [id number] 10mg Take 1 U nivers mg tablet 1-02 tablet by ity o f 00:00: mouth at [place] [address] bedtime. Medical Branch rosuvastati 2021-05 Yes [id number] 5mg Take 5 mg Univers n 5 mg CpSP 1-02 by mouth ity of 00:00: daily. Medical Branch zolpidem 10 2021-05 Yes [id number] 10mg Take 1 U nivers mg tablet 1-02 tablet by ity o f 00:00: mouth at [place] bedtime. Medical Branch rosuvastati 2021-05 Yes [id number] 5mg Take 5 mg Univers n 5 mg CpSP 1-02 by mouth ity of 00:00: daily. Medical Branch zolpidem 10 2021-05 Yes [id number] 10mg Take 1 U nivers mg tablet 1-02 tablet by ity o f 00:00: mouth at [place] [address] bedtime. Medical Branch insulin Yes [id number] 30U inject 30 U nivers aspart 4-22 Units ity of RAPID 00:00: under the [place] (NOVOLOG 00 skin 3 Medical U-100 (three) Branch INSULIN times ASPART) 100 daily with unit/mL meals. injection insulin Yes [id number] 30U inject 30 U nivers aspart 4-22 Units ity of RAPID 00:00: under the [place] (NOVOLOG 00 skin 3 Medical U-100 (three) Branch INSULIN times ASPART) 100 daily with unit/mL meals. injection insulin Yes [id number] 30U inject 30 U nivers aspart 4-22 Units ity of RAPID 00:00: under the [place] (NOVOLOG 00 skin 3 Medical U-100 (three) Branch INSULIN times ASPART) 100 daily with unit/mL meals. injection insulin Yes [id number] 30U inject 30 U nivers aspart 4-22 Units ity of RAPID 00:00: under the [place] (NOVOLOG 00 skin 3 Medical U-100 (three) Branch INSULIN times ASPART) 100 daily with unit/mL meals. injection insulin 0 Yes [id number] 30U inject 30 U nivers aspart 4-22 Units ity of RAPID 00:00: under the [place] (NOVOLOG 00 skin 3 Medical U-100 (three) Branch INSULIN times ASPART) 100 daily with unit/mL meals. injection insulin 0 Yes [id number] 30U inject 30 U nivers aspart 4-22 Units ity of RAPID 00:00: under the [place] (NOVOLOG 00 skin 3 Medical U-100 (three) Branch INSULIN times ASPART) 100 daily with unit/mL meals. injection insulin Yes [id number] 30U inject 30 U nivers aspart 4-22 Units ity of RAPID 00:00: under the [place] (NOVOLOG 00 skin 3 Medical U-100 (three) Branch INSULIN times ASPART) 100 daily with unit/mL meals. injection insulin Yes [id number] 30U inject 30 U nivers aspart 4-22 Units ity of RAPID 00:00: under the [place] (NOVOLOG 00 skin 3 Medical U-100 (three) Branch INSULIN times ASPART) 100 daily with unit/mL meals. injection insulin Yes [id number] 30U inject 30 U nivers aspart 4-22 Units ity of RAPID 00:00: under the [place] (NOVOLOG 00 skin 3 Medical U-100 (three) Branch INSULIN times ASPART) 100 daily with unit/mL meals. injection insulin Yes [id number] 30U inject 30 U nivers aspart 4-22 Units ity of RAPID 00:00: under the [place] (NOVOLOG 00 skin 3 Medical U-100 (three) Branch INSULIN times ASPART) 100 daily with unit/mL meals. injection zolpidem 10 Yes [id number] 10mg Take 1 U nivers mg tablet 4-20 tablet by ity o f 00:00: mouth at [place] [address] bedtime. Medical Branch nortriptyli Yes [id number] 50mg Take 1 Univers ne 50 mg 4-20 capsule by ity o f capsule 00:00: mouth at [place] [address] bedtime. Medical Branch zolpidem 10 0 Yes [id number] 10mg Take 1 U nivers mg tablet 4-20 tablet by ity o f 00:00: mouth at [place] [address] bedtime. Medical Branch nortriptyli Yes [id number] 50mg Take 1 Univers ne 50 mg 4-20 capsule by ity o f capsule 00:00: mouth at [place] [address] bedtime. Medical Branch zolpidem 10 0 Yes [id number] 10mg Take 1 U nivers mg tablet 4-20 tablet by ity o f 00:00: mouth at [place] [address] bedtime. Medical Branch nortriptyli Yes [id number] 50mg Take 1 Univers ne 50 mg 4-20 capsule by ity o f capsule 00:00: mouth at [place] [address] bedtime. Medical Branch zolpidem 10 Yes [id number] 10mg Take 1 U nivers mg tablet 4-20 tablet by ity o f 00:00: mouth at [place] [address] bedtime. Medical Branch nortriptyli Yes [id number] 50mg Take 1 Univers ne 50 mg 4-20 capsule by ity o f capsule 00:00: mouth at [place] [address] bedtime. Medical Branch nortriptyli Yes [id number] 50mg Take 1 Univers ne 50 mg 4-20 capsule by ity o f capsule 00:00: mouth at [place] [address] bedtime. Medical Branch nortriptyli Yes [id number] 50mg Take 1 Univers ne 50 mg 4-20 capsule by ity o f capsule 00:00: mouth at [place] [address] bedtime. Medical Branch nortriptyli Yes [id number] 50mg Take 1 Univers ne 50 mg 4-20 capsule by ity o f capsule 00:00: mouth at [place] [address] bedtime. Medical Branch nortriptyli Yes [id number] 50mg Take 1 Univers ne 50 mg 4-20 capsule by ity o f capsule 00:00: mouth at [place] [address] bedtime. Medical Branch nortriptyli Yes [id number] 50mg Take 1 Univers ne 50 mg 4-20 capsule by ity o f capsule 00:00: mouth at [place] [address] bedtime. Medical Branch nortriptyli 2022- No [id number] 50mg Take 1 Univers ne 50 mg 4-20 -03 capsule by ity of capsule 00:00: 00:00 mouth at [place] 00 :00 bedtime. Medical Branch zolpidem 10 2021- No [id number] 10mg Take 1 Univers mg tablet 4-20 - tablet by ity of 00:00: 00:00 mouth at [place] 00 :00 bedtime. Medical Branch zolpidem 10 2021- No [id number] 10mg Take 1 Univers mg tablet 4-20 -02 tablet by ity of 00:00: 00:00 mouth at [place] 00 :00 bedtime. Medical Branch zolpidem 10 2021- No [id number] 10mg Take 1 Univers mg tablet 09-04 tablet by ity of 00:00: 00:00 mouth at [place] 00 :00 bedtime. Medical Branch insulin 2021- No [id number] 30U inject 30 Univers aspart 420 04-22 Units ity of RAPID 00:00: 00:00 under the [place] (NOVOLOG 00 :00 skin 3 Medical U-100 (three) Branch INSULIN times ASPART) 100 daily with unit/mL meals. injection Insulin 2021- No [id number] 50U inject 50 Univers Glargine 419 06-19 Units ity of (LANTUS 00:00: 04:59 [facility] skin 2 Medical U-100 (two) Branch INSULIN) times 100 unit/mL daily for (3 mL) 60 days. injection famotidine Yes 20mg Take 20 mg U nivers 20 mg 1-24 by mouth ity of tablet 09:08: before [place] [address] meals. Medical Branch rosuvastati 2021- Yes Take by Uni vers n 5 mg CpSP 1-24 mouth. ity of 09:08: [place] [address] Medical Branch famotidine 2021-0 Yes 20mg Take 20 mg U nivers 20 mg 1-24 by mouth ity of tablet 09:08: before [place] [address] meals. Medical Branch rosuvastati 2021-0 Yes Take by Uni vers n 5 mg CpSP 1-24 mouth. ity of 09:08: [place] [address] Medical Branch famotidine 2021-0 Yes 20mg Take 20 mg U nivers 20 mg 1-24 by mouth ity of tablet 09:08: before [place] [address] meals. Medical Branch rosuvastati 2021-0 Yes Take by Uni vers n 5 mg CpSP 1-24 mouth. ity of 09:08: [place] [address] Medical Branch famotidine 2021-0 Yes 20mg Take 20 mg U nivers 20 mg 1-24 by mouth ity of tablet 09:08: before [place] [address] meals. Medical Branch rosuvastati 2021-0 Yes Take by Uni vers n 5 mg CpSP 1-24 mouth. ity of 09:08: [place] [address] Medical Branch famotidine 2021-0 Yes 20mg Take 20 mg U nivers 20 mg 1-24 by mouth ity of tablet 09:08: before [place] 44 meals. Medical Branch famotidine 2022-0 Yes 20mg Take 20 mg U nivers 20 mg 1-24 by mouth ity of tablet 09:08: before [place] 44 meals. Medical Branch famotidine 2022-0 Yes 20mg Take 20 mg U nivers 20 mg 1-24 by mouth ity of tablet 09:08: before [place] 44 meals. Medical Branch famotidine 2022-0 Yes 20mg Take 20 mg U nivers 20 mg 1-24 by mouth ity of tablet 09:08: before [place] 44 meals. Medical Branch famotidine 2022-0 Yes 20mg Take 20 mg U nivers 20 mg 1-24 by mouth ity of tablet 09:08: before [place] 44 meals. Medical Branch famotidine 2022-0 Yes 20mg Take 20 mg U nivers 20 mg 1-24 by mouth ity of tablet 09:08: before [place] 44 meals. Medical Branch lisinopriL 2-0 Yes [id number] 5mg Take 1 U nivers 5 mg tablet 1-24 tablet by ity of 00:00: mouth [place] 00 daily. Medical Branch lisinopriL 2-0 Yes [id number] 5mg Take 1 U nivers 5 mg tablet 1-24 tablet by ity of 00:00: mouth [place] 00 daily. Medical Branch lisinopriL 2-0 Yes [id number] 5mg Take 1 U nivers 5 mg tablet 1-24 tablet by ity of 00:00: mouth [place] 00 daily. Medical Branch lisinopriL 2-0 Yes [id number] 5mg Take 1 U nivers 5 mg tablet 1-24 tablet by ity of 00:00: mouth [place] 00 daily. Medical Branch lisinopriL 2-0 Yes [id number] 5mg Take 1 U nivers 5 mg tablet 1-24 tablet by ity of 00:00: mouth [place] 00 daily. Medical Branch lisinopriL 2022-0 Yes [id number] 5mg Take 1 U nivers 5 mg tablet 1-24 tablet by ity of 00:00: mouth [place] 00 daily. Medical Branch lisinopriL 2022-0 Yes [id number] 5mg Take 1 U nivers 5 mg tablet 1-24 tablet by ity of 00:00: mouth [place] 00 daily. Medical Branch lisinopriL 2022-0 Yes [id number] 5mg Take 1 U nivers 5 mg tablet 1-24 tablet by ity of 00:00: mouth 00 daily. Medical Branch lisinopriL 2021-0 Yes [id number] 5mg Take 1 U nivers 5 mg tablet 1-24 tablet by ity of 00:00: mouth [place] 00 daily. Medical Branch lisinopriL 2021-0 Yes [id number] 5mg Take 1 U nivers 5 mg tablet 1-24 tablet by ity of 00:00: mouth 00 daily. Medical Branch Immunizations Ordered Filled Immunization Date Status Comments [facility] e Immunization Name Name SARS-COV-2 COVID-19 2020 Completed Unive rsity of MODERNA VACCINE 00:00:00 [facility] ical Branch SARS-COV-2 COVID-19 2020 Completed Unive rsity of MODERNA VACCINE 00:00:00 [facility] ical Branch SARS-COV-2 COVID-19 2020 Completed Unive rsity of MODERNA VACCINE 00:00:00 [facility] ical Branch SARS-COV-2 COVID-19 2020 Completed Unive rsity of MODERNA 12+ YRS 00:00:00 [place] [facility] ical VACCINE Branch SARS-COV-2 COVID-19 2020 Completed Unive rsity of MODERNA 12+ YRS 00:00:00 [place] [facility] ical VACCINE Branch SARS-COV-2 COVID-19 2020 Completed Unive rsity of MODERNA 12+ YRS 00:00:00 [place] Med ical VACCINE Branch SARS-COV-2 COVID-19 2020 Completed Unive rsity of MODERNA 12+ YRS 00:00:00 [place] Med ical VACCINE Branch SARS-COV-2 COVID-19 2020 Completed Unive rsity of MODERNA 12+ YRS 00:00:00 [place] Med ical VACCINE Branch SARS-COV-2 COVID-19 2020 Completed Unive rsity of MODERNA 12+ YRS 00:00:00 [place] [facility] ical VACCINE Branch SARS-COV-2 COVID-19 2020 Completed Unive rsity of MODERNA 12+ YRS 00:00:00 [facility] ical VACCINE Branch SARS-COV-2 COVID-19 2020-07-27 Completed Unive rsity of MODERNA VACCINE 00:00:00 [place] Med ical Branch SARS-COV-2 COVID-19 2020-07-27 Completed Unive rsity of MODERNA VACCINE 00:00:00 [place] Med ical Branch SARS-COV-2 COVID-19 2020-07-27 Completed Unive rsity of MODERNA VACCINE 00:00:00 [place] Med ical Branch SARS-COV-2 COVID-19 2020-07-27 Completed Unive rsity of MODERNA 12+ YRS 00:00:00 [place] Med ical VACCINE Branch SARS-COV-2 COVID-19 2020-07-27 Completed Unive rsity of MODERNA 12+ YRS 00:00:00 [place] Med ical VACCINE Branch SARS-COV-2 COVID-19 2020-07-27 Completed Unive rsity of MODERNA 12+ YRS 00:00:00 [place] Med ical VACCINE Branch SARS-COV-2 COVID-19 2020-07-27 Completed Unive rsity of MODERNA 12+ YRS 00:00:00 [place] Med ical VACCINE Branch SARS-COV-2 COVID-19 2020-07-27 Completed Unive rsity of MODERNA 12+ YRS 00:00:00 [place] Med ical VACCINE Branch SARS-COV-2 COVID-19 2020-07-27 Completed Unive rsity of MODERNA 12+ YRS 00:00:00 [place] Med ical VACCINE Branch SARS-COV-2 COVID-19 2020-07-27 Completed Unive rsity of MODERNA 12+ YRS 00:00:00 [place] Med ical VACCINE Branch Vital Signs Vital Name Observation Time Observation Value Comments Source Systolic blood 2022-03-19 21:05:00 142 mm[Hg] Univer sity of [place] pressure Medical Branch Diastolic blood 2022-03-19 21:05:00 98 mm[Hg] Unive rsity of [place] pressure Medical Branch Heart rate 2022-03-19 21:01:00 112 /min [facility] Body height 2022-03-19 21:01:00 185.4 cm [facility] Body weight 2022-03-19 21:01:00 102.059 kg [facility] BMI 2022-03-19 21:01:00 29.69 kg/m2 [facility] Medical Branch Procedures Procedure Date / Time Performed Performing Clinician Nico gómez POCT HEMOGLOBIN A1C 2022-03-19 00:00:00 [facility] EXTERNAL PROVIDER 2022-01-06 05:01:00 [facility] Branch EXTERNAL PROVIDER 2021-12-26 05:01:00 Doctor Unassigned, No [facility] RECORDS Name Medical Branch [id number] 2019-12-05 00:00:00 [facility] l Encounters Start End Encounter Admission Attending Care Care Encounter Source Date/Time Date/Time Type Type Clinicians Facility Department ID 2021-02-24 Inpatient UR [facility] Gastro [id number] [facility]05 [facility] 2022-06-20 2022-06-20 Refill [facility] [id number] Univers 00:00:00 00:00:00 [facility] [id number] it y of [place] [id number] Mati as MARK?BLEA [id number] [address] MEDICAL OFFICE [facility] 2022-04-28 2022-04-28 Telephone [facility] [id number] Univers 00:00:00 00:00:00 [facility] [id number] it y of [place] [id number] Mati as MARK?BLEA [id number] [address] MEDICAL OFFICE BUILDING 2022-03-20 2022-03-20 Telephone [facility] [id number] Univers 00:00:00 00:00:00 [facility] [id number] it y of [place] [id number] Mati as MARK?BLEA [id number] [address] MEDICAL OFFICE BUILDING 2022-03-19 2022-03-19 Office [facility] [id number] Univers 16:00:00 16:15:00 Visit [facility] [id number] it y of [place] [id number] Mati as MARK?BLEA [id number] [place] xiomara [address] MEDICAL OFFICE [facility] 2022-03-19 2022-03-19 Outpatient Piter CARRASCO [facility] [id number] Univers 16:00:00 16:00:00 SANDRA ramya [facility] 2022-03-13 2022-03-13 [facility] [id number] Univers 00:00:00 00:00:00 [facility] [id number] it y of [place] [id number] Mati as MARK?BLEA [id number] [address] 2022-03-10 2022-03-10 Outpatient Piter CARRASCO [facility] [id number] Univers 14:15:00 14:15:00 SANDRA ramya [facility] 2022-01-06 2022-01-06 Orders Doctor CHELSEA [id number] Univers 00:00:00 00:00:00 Only Unassigned, [place] [id number] ity of [place] [facility] [id number] Mati as [id number] [address] 2021-12-26 2021-12-26 Orders Doctor CHELSEA [id number] Univers 00:00:00 00:00:00 Only Unassigned, [place] [id number] ity of [place] [facility] [id number] Mati as [id number] [address] 2021-10-09 2021-10-09 Outpatient Piter CARRASCO [facility] [id number] Univers 08:15:00 08:15:00 SANDRA ramya [facility] 2021-10-04 2021-10-04 Outpatient Piter CARRASCO [facility] [id number] Univers 08:00:00 08:00:00 SANDRA ramya [facility] 2021-09-06 2021-09-06 [facility] [id number] Univers 00:00:00 00:00:00 [facility] [id number] it y of [place] [id number] Mati as MARK?BLEA [id number] [address] OFFICE [facility] 2021-09-04 2021-09-04 [facility] [id number] Univers 13:15:00 13:47:39 [facility] 2021-09-04 2021-09-04 Office [facility] [id number] [facility] 13:15:00 13:47:39 Visit [facility] [id number] it y of [place] [id number] Mati as MARK?BLEA [id number] [address] 2021-09-04 2021-09-04 [facility]patient [facility] [id number] Univers 13:15:00 13:15:00 [facility] 2021-09-03 2021-09-03 Outpatient ROCHELLE JEFFERS [id number] 76 [place] 08:45:00 08:45:00 TYREE nieves 2021-09-03 2021-09-03 [facility] 1.2.840.114 [id number] Univers 00:00:00 00:00:00 [facility] [id number] it y of [place] [id number] Mati as MARK?BLEA [id number] [address] 2021-09-03 2021-09-03 [facility] [id number] Univers 00:00:00 00:00:00 [facility] [id number] it y of [place] [id number] Mati as MARK?BLEA [id number] [address] 2021-09-03 2021-09-03 [facility] [id number] Univers 00:00:00 00:00:00 [facility] [id number] it y of [place] [id number] Mati as MARK?BLEA [id number] Va xiomara [address] MEDICAL OFFICE [facility] 2021-08-07 2021-08-07 Outpatient R BELA [facility] [id number] Univers 08:30:00 08:30:00 TONI ramya [facility] 2021-08-07 2021-08-07 Outpatient R CRAMER [facility] [id number] Univers 08:30:00 08:30:00 TONI [facility] 2021-07-01 2021-07-01 Outpatient R GABRIELA [facility] [id number] Univers 13:40:00 13:40:00 DOMINIQUE callejas o f [facility] 2021-06-12 2021-06-12 Outpatient R [facility] [id number] Univers 07:45:00 07:45:00 ramya [facility] 2021-06-10 2021-06-10 [facility] [id number] Univers 09:00:00 11:19:35 AIDE callejas [facility] 2021-06-10 2021-06-10 Out[facility] [id number] Univers 09:00:00 11:19:35 AIDE ramya [facility] 2021-06-10 2021-06-10 [facility] [id number] Univers 09:00:00 11:19:35 AIDE ramya [facility] 2021-06-10 2021-06-10 [facility] [id number] Univers 09:00:00 11:19:35 Visit Aide [facility] [id number] it y of [place] 4.2.7.2.686 Mati as MARK?BLEA [id number] Va xiomara [address] MEDICAL OFFICE [facility] 2021-05-31 2021-05-31 Outpatient R HEAVEN [facility] [id number] Univers 18:00:00 18:00:00 VELIA ramya [facility] 2021-05-31 2021-05-31 Outpatient [facility] [id number] Univers 18:00:00 18:00:00 VELIA callejas [facility] 2021-05-31 2021-05-31 Outpatient R XIMENAAime [facility] [id number] Univers 18:00:00 18:00:00 VELIA callejas [facility] 2021-05-31 2021-05-31 Orders Doctor CHELSEA [id number] Univers 00:00:00 00:00:00 Only Unassigned, [place] [id number] [facility] 4.2.7.2.686 Mati as [id number] [address] 2021-05-28 2021-05-28 Outpatient R AVA [facility] [id number] Univers 15:30:00 15:30:00 ROLANDELAINE clalejas [facility] 2021-05-25 2021-05-25 Yaquelni Birch [facility] [id number] Univers 16:00:00 16:35:38 [facility] [id number] ity [facility] [id number] Mati as MARK?BLEA [phone] Va xiomara [address] MEDICAL OFFICE BUILDING 2021-05-25 2021-05-25 Outpatient Piter LEDESMA [facility] [id number] Univers 16:00:00 16:35:38 ALLI callejas o f [facility] 2020-08-13 2020-08-13 Inpatient HCARG [facility] [id number] [facility] 18:08:39 18:08:39 [facility] 2020-06-14 2020-06-16 Inpatient HCARG ER [id number] [facility] 07:47:00 08:46:42 [facility] 2020-04-18 2020-04-20 Inpatient HCARG ER [id number] [facility] 10:19:00 06:19:59 [facility] 2020-01-22 2020-01-24 Inpatient [facility] ER [id number] [facility] 01:29:00 03:16:41 [facility] 2019-12-01 2020-01-03 Inpatient HC[facility] ER [id number] [facility] 00:13:00 17:12:43 80 [facility] 2019-12-19 2019-12-19 Outpatient YOHANNES, HC[facility] ADMI [id number] [facility] 23:24:00 23:24:00 DOES_NOT 13 [facility] 2019-10-15 2019-10-20 Inpatient SUPA William, [facility] TL2E [id number] [facility] 13:44:00 03:31:15 Wilmer 18 [facility] 2019-06-13 2019-06-21 Inpatient HCARG ER [id number] [facility] 17:11:00 07:49:09 06 [facility] 2019-06-01 2019-06-08 Inpatient HCARG ER [id number] [facility] 13:21:00 15:53:07 51 [facility] 2019-05-22 2019-05-24 Inpatient HCARG ER [id number] [facility] 05:31:00 21:34:09 85 [facility] 2019-05-20 2019-05-23 Inpatient HC[facility] ER [id number] [facility] 22:15[facility] Test Description Test Time Test Comments Results Result Comments Source POCT HEMOGLOBIN A1C TEST 2022-03-19 21:28:00 Test Item Value Reference Range Interpretation Comme nts POCT HBA1C (test code = 4548-4) 9.6 % 4-6 A Lab Interpretation (test code = 29189-1) Abnormal [facility]- [facility] ABD PELVIS [id number] 19:35:00 [facility] 1980 Sex: M Name: RADHA LEE FSED : 1980 Age/S: 39 / M [address] Unit #: [id number] Loc: [place] [address] Phys: Tony Noriega MD Acct: [id number] Dis Date: Status: PRE ER PHONE #:Exam Date: 08/13/20201923 FAX #: Reason: ABD PAIN EXAMS: CPT CODE: [id number] CT ABD PELVIS W/CONT 69279 CT SCAN OF THE ABDOMEN AND PELVIS [...] is surgically absent. The pancreas, spleen, and adrenalglands are normal. There is no evidence of [...] mild prostate enlargement. There is mild calcific atherosclerosis.No AAA. Mild degenerative changes are seen in the spine. IMPRESSION: No acute abnormality is demonstrated. at 1935 Reported and signed by: BLAS JARA M.D. PAGE 1 Signed Report (CONTINUED) Name: RADHA LEE FSED : 1980 Age/S: 39 / M [address] Unit #: [id number] Loc: [place] [address] Phys: Tony Noriega MD Acct: [id number] Dis Date: Status: PRE ER PHONE #: Exam Date: 08/13/2020 1924 FAX #: Reason: ABD PAIN EXAMS: CPT CODE: [id number] CT ABD PELVIS W/CONT 00907 (Continued) CC: Galindo Chris MD Techno logist:Jamil Cox CT (R) CTDI: 10.45 DLP: 602.65 Trnscb Date/Time: 08/13/2020 (1934) MoonMVT Orig Print D/T: S: 08/13/2020 (1937) PAGE 2 Signed ReportUA RFLX MICROSCOPIC [id number] 19:33:00 Test Item Value Reference Range Interpretation [...] code FEW /hpf NEG,FEW = EPIU) UA BACTERIA (test code = BACU) FEW /hpf NEGATIVE A Indication for culture: Suprapubic PainURINE SOURCE: CLEAN CATCH URINEBASIC METABOLIC [id number] 19:30:00 Test Item Value Reference Range Interpretation [...] RESULT BY1.21. [Automated mess age] The system Flash Valet generated this result transmitted ref erence range: >=60. Th e reference range was not used to int erpret this result as normal/abnormal . CREATININE (test code 0.91 mg/dl 0.70-1.30 N = CREAT) CALCIUM (test code = 9.6 mg/dL 8.5-10.1 N CA) LIVER [id number] 19:30:00 Test Item Value Reference Range Interpretation [...] 78 U/L 45-117 N code = ALKP) [id number] 19:30:00 Test Item Value Reference Range Interpretation Comments LIPASE (test code = LIP) 59 U/L 73-393 L [id number] 19:30:00 Test Item Value Reference Range Interpretation [...] >78 ------- [Automa ghazala message] The system Flash Valet generated this result tra nsmitted reference range : <=3.0. The reference range was not used to interpret th is result as normal/abnormal . DRUGS OF ABUSE [id number] 19:08:00 Test Item Value Reference Range Interpretation [...] code = WAS TESTE D AT THE [facility]) LISTED CUTOFFS DRUG CLASS INIT IAL TEST LEVEL AMPHETAMINES 10 00 NG/MLBARBITURAT ES 200 NG/MLBENZODIAZE PIN ES 200 NG/MLCOCAINE METABOLITE 300 NG/MLMARIJUANA METABOLITE 50 NG/MLOPIATES 30 0 NG/MLPHENCYCLID INE 25 NG/ML UA RFLX MICROSCOPIC [id number] 19:05:00 Test Item Value Reference Range Interpretation [...] Suprapubic PainURINE SOURCE: CLEAN CATCH URINEBASIC METABOLIC [id number] 18:20:00 Test Item Value Reference Range Interpretation [...] RESULT BY1.21. [Automated mess age] The system Flash Valet generated this result transmitted ref erence range: >=60. Th e reference range was not used to int erpret this result as normal/abnormal . CREATININE (test code 0.91 mg/dl 0.70-1.30 N = CREAT) CALCIUM (test code = 9.6 mg/dL 8.5-10.1 N CA) LIVER [id number] 18:20:00 Test Item Value Reference Range Interpretation [...] 78 U/L 45-117 N code = ALKP) [id number] 18:20:00 Test Item Value Reference Range Interpretation Comments LIPASE (test code = LIP) 59 U/L 73-393 L CBC W/AUTO [id number] 18:06:00 Test Item Value Reference Range Interpretation [...] (test NO NORMAL code = RBCM) LACTIC [id number] 18:05:00 Test Item Value Reference Range Interpretation Comments LACTIC ACID (test code = LACT) 2.0 mmol/l 0.4-2.0 N [id number] 17:57:00 Test Item Value Reference Range Interpretation Comments GLUBED (test code = GLUBED) 89 mg/dL 70-105 N [id number] 12:05:00 Test Item Value Reference Range Interpretation Comments GLUBED (test code = GLUBED) 314 mg/dL 70-105 H [id number] 12:04:00 Test Item Value Reference Range Interpretation Comments GLUBED (test code = GLUBED) 371 mg/dL 70-105 H LACTIC [id number] 11:41:00 Test Item Value Reference Range Interpretation Comments LACTIC ACID (test code = LACT) 1.5 mmol/l 0.4-2.0 N - CT LOWER EXTRM W/O C [id number] 11:30:00 [facility] 1980 Sex: M Name: RADHA LEE FSED : 1980 Age/S: 39 / M [address] Unit #: [id number] Loc: [place] [address] Phys: Tony Noriega MD Acct: [id number] Dis Date: Status: REG ER PHONE #:Exam Date: 06/14/2020 1017 FAX #: Reason: R FOOT SWELLING EXAMS: CPT CODE: [id number] [place] EXTRMW/[place] [address] - CT LOWER EXTRM W/O C RT [...] PAGE 1 Signed Report (CONTINUED) Name: RADHA LEE FSED : 1980 Age/S: 39 / M [address] Unit #: [id number] Loc: [place] [address] Phys: Tony Noriega MD Acct: [id number] Dis Date: Status: REG ER PHONE #: Exam Date: 06/14/2020 1015 FAX #: Reason: R FOOT SWELLING EXAMS: CPT CODE: [id number] CT LOWER EXTRM W/[place] [address] (Continued) CC: Tony Noriega MD; Galindo Chris MD Technologist:Fede Caballero, (R) CT CTDI: 10.53 DLP: 350.96 Trnscb Date/Time: 06/14/2020 (1130) t.SDR.KEC2 Orig Print D/T: S: 06/14/2020 (1133) PAGE 2 Signed ReportDRUGS OF ABUSE [id number] 10:53:00 Test Item Value Reference Range Interpretation Comments UR COCAINE (test code NEGATIVE ng/ml NEGATIVE = COCAU) UR CANNABINOIDS (test NEGATIVE ng/ml NEGATIVE code = CANU) UR AMPHETAMINE (test NEGATIVE ng/dl NEGATIVE code = AMPHU) UR BARBITURATE (test POSITIVE ng/ml NEGATIVE A VALUE EXCEEDS code = BARBU) CRITICAL LEVEL . CRITICAL VALUE CALLEDTO AND CRITICAL VALUE READ BACK BY DEIRDRE CORRALES 06/14/20. Kolton Rodriguez POSITIVE URINE DRUG SCREEN MOO T RESULTS ARE UNCONFIRMED.REF ERR ED CONFIRMATORY TESTING AVAILAB LE UPON PHYSICIANREQUES T. UR BENZODIAZEPINE NEGATIVE ng/ml NEGATIVE (test code = BENZU) UR OPIATES QUAL (test POSITIVE ng/ml NEGATIVE A VALU E EXCEEDS code = OPIAQLU) CRITICAL LEV EL. CRITICAL VALUE CALLEDTO AND CRITICAL VALUE READ BACK BY DEIRDRE CORRALES 10 06/14/20. Kolton Rodriguez ia POSITIVE URINE DRUG SCREEN MOO T RESULTS ARE UNCONFIRMED.REF ERR ED CONFIRMATORY TESTING AVAILAB LE UPON PHYSICIANREQUES T. UR PHENCYCLIDINE NEGATIVE ng/ml NEGATIVE THE URINE SPECIMEN (PCP) (test code = WAS TESTE D AT THE [facility]) LISTED CUTOFFS DRUG CLASS INIT IAL TEST LEVEL AMPHETAMINES 10 00 NG/MLBARBITURAT ES 200 NG/MLBENZODIAZE PIN ES 200 NG/MLCOCAINE METABOLITE 300 NG/MLMARIJUANA METABOLITE 50 NG/MLOPIATES 30 0 NG/MLPHENCYCLID INE 25 NG/ML - CT ABD PELVIS [id number] 09:45:00 [facility] 1980 Sex: M Name: RADHA LEE [place] FSED : 1980 Age/S: 39 / M [address] Unit #: [id number] Loc: [place] [address] Phys: Tony Noriega MD Acct: [id number] Dis Date: Status: PRE ER PHONE #: Exam Date: 06/14/2020 0918 FAX #: Reason: ABD PAIN EXAMS: CPT CODE: [id number] CT ABD PELVIS [id number] CT abdomen and pelvis with contrast 06/14/2020 CLINICAL INDICATION: Abdominal pain COMPARISON: None available LOCATION: W1 TECHNIQUE: Helical CT axial imaging of the abdomen and pelvis was performed following the administration of intravenous contrast. Coronal and sagittal reformatted images wereobtained. One or more of the following dose [...] PAGE 1 Signed Report (CONTINUED) Name: RADHA LEE FSED : 1980 Age/S: 39 / M [address] Unit #: [id number] Loc: [place] [address] Phys: Tony Noriega MD Acct: [id number] Dis Date: Status: PRE ER PHONE #: Exam Date: 06/14/2020 0918 FAX #: Reason: ABD PAIN EXAMS: CPT CODE: [id number] CT ABD PELVIS W/CONT 82620 (Continued) CC: Tony Noriega MD; Galindo Chris MD Technologist:Fede Caballero RT (R) CT CTDI: 10.33 DLP: 549.38 Trnscb Date/T hina: 06/14/2020 (0945) t.SDR.TS14 Orig Print D/T: S: 06/14/2020 (0948) PAGE 2 Signed ReportUA RFLX MICROSCOPIC [id number] 09:14:00 Test Item Value Reference Range Interpretation [...] Dysuria/FrequencyURINE SOURCE: CLEAN CATCH URINEUA RFLX MICROSCOPIC [id number] 09:12:00 Test Item Value Reference Range Interpretation [...] culture: Dysuria/FrequencyURINE SOURCE: CLEAN CATCH URINEBASIC METABOLIC [id number] 08:48:00 Test Item Value Reference Range Interpretation [...] REPORT ED RESULT BY06.07. CREATININE (test code 1.20 mg/dl 0.70-1.30 N = CREAT) CALCIUM (test code = 10.1 mg/dL 8.5-10.1 N CA) LIVER [id number] 08:48:00 Test Item Value Reference Range Interpretation [...] 84 U/L 45-117 N code = ALKP) [id number] 08:48:00 Test Item Value Reference Range Interpretation Comments LIPASE (test code = LIP) 78 U/L 73-393 N [id number] 08:48:00 Test Item Value Reference Range Interpretation Comments TROPONIN-I (test <0.017 ng/ml 0.00-0.045 N GUIDELINES: 0.08 - 0.09 code = TROPI) Indeterminate0 .10 Risk Stratification Limit: Suggest sequent ial testing0.60 - 1 .50 AMI cutoff: Myocard ial Injury by WHO criteria BASIC METABOLIC [id number] 08:46:00 Test Item Value Reference Range Interpretation [...] REPORT ED RESULT BY1.. CREATININE (test code 1.20 mg/dl 0.70-1.30 N = CREAT) CALCIUM (test code = 10.1 mg/dL 8.5-10.1 N CA) LIVER [id number] 08:46:00 Test Item Value Reference Range Interpretation [...] 84 U/L 45-117 N code = ALKP) [id number] 08:46:00 Test Item Value Reference Range Interpretation Comments LIPASE (test code = LIP) U/L 73-393 [id number] 08:46:00 Test Item Value Reference Range Interpretation Comments TROPONIN-I (test code = TROPI) ng/ml 0.00-0.045 PROTHROMBIN [id number] 08:45:00 Test Item Value Reference Interpretation Comments [...] with mechanical prosthetic heart valves. THROMBOPLASTIN TIME [id number] 08:45:00 Test Item Value Reference Range Interpretation Comments THROMBOPLASTIN TIME PARTIAL 25.4 seconds 22.8-34.4 N (test code = PTT) CBC W/AUTO [id number] 08:30:00 Test Item Value Reference Range Interpretation [...] (test NO NORMAL code = RBCM) LACTIC [id number] 08:29:00 Test Item Value Reference Range Interpretation Comments LACTIC ACID (test 2.5 mmol/l 0.4-2.0 H RESULTS C ALLED TO code = LACT) TONY Slade MD AT 0829 06/14/20. Berny Landaverde [id number] 07:55:00 Test Item Value Reference Range Interpretation Comments GLUBED (test code = GLUBED) 367 mg/dL 70-105 H URINALYSIS W REFLEX [id number] 11:06:00 Test Item Value Reference Range Interpretation [...] SPERMU) FEW /hpf NEGATIVE A BASIC METABOLIC [id number] 11:02:00 Test Item Value Reference Range Interpretation [...] = 10.7 mg/dL 8.5-10.1 H CA) LIVER [id number] 11:02:00 Test Item Value Reference Range Interpretation [...] 82 U/L 50-136 N code = ALKP) [id number] 11:02:00 Test Item Value Reference Range Interpretation Comments LIPASE (test code = LIP) 56 U/L 73-393 L [id number] 11:02:00 Test Item Value Reference Range Interpretation Comments TROPONIN-I (test <0.015 ng/ml 0.00-0.045 N GUIDELINES: 0.08 - 0.09 code = TROPI) Indeterminate0 .10 Risk Stratification Limit: Suggest sequent ial testing0.60 - 1 .50 AMI cutoff: Myocard ial Injury by WHO criteria BASIC METABOLIC [id number] 11:01:00 Test Item Value Reference Range Interpretation [...] = 10.7 mg/dL 8.5-10.1 H CA) LIVER [id number] 11:01:00 Test Item Value Reference Range Interpretation [...] TOTAL (test U/L 50-136 code = ALKP) [id number] 11:01:00 Test Item Value Reference Range Interpretation Comments LIPASE (test code = LIP) 56 U/L 73-393 L [id number] 11:01:00 Test Item Value Reference Range Interpretation Comments TROPONIN-I (test code = TROPI) ng/ml 0.00-0.045 BASIC METABOLIC [id number] 11:00:00 Test Item Value Reference Range Interpretation [...] = 10.7 mg/dL 8.5-10.1 H CA) LIVER [id number] 11:00:00 Test Item Value Reference Range Interpretation [...] TOTAL (test U/L 50-136 code = ALKP) [id number] 11:00:00 Test Item Value Reference Range Interpretation Comments LIPASE (test code = LIP) 56 U/L 73-393 L [id number] 11:00:00 Test Item Value Reference Range Interpretation Comments TROPONIN-I (test code = TROPI) ng/ml 0.00-0.045 BASIC METABOLIC [id number] 10:59:00 Test Item Value Reference Range Interpretation [...] = 10.7 mg/dL 8.5-10.1 H CA) LIVER [id number] 10:59:00 Test Item Value Reference Range Interpretation [...] TOTAL (test U/L 50-136 code = ALKP) [id number] 10:59:00 Test Item Value Reference Range Interpretation Comments LIPASE (test code = LIP) 56 U/L 73-393 L [id number] 10:59:00 Test Item Value Reference Range Interpretation Comments TROPONIN-I (test code = TROPI) ng/ml 0.00-0.045 BASIC METABOLIC [id number] 10:58:00 Test Item Value Reference Range Interpretation [...] = CA) 10.7 mg/dL 8.5-10.1 H LIVER [id number] 10:58:00 Test Item Value Reference Range Interpretation [...] TOTAL (test U/L 50-136 code = ALKP) [id number] 10:58:00 Test Item Value Reference Range Interpretation Comments LIPASE (test code = LIP) 56 U/L 73-393 L [id number] 10:58:00 Test Item Value Reference Range Interpretation Comments TROPONIN-I (test code = TROPI) ng/ml 0.00-0.045 BASIC METABOLIC [id number] 10:57:00 Test Item Value Reference Range Interpretation [...] = CA) 10.7 mg/dL 8.5-10.1 H LIVER [id number] 10:57:00 Test Item Value Reference Range Interpretation [...] TOTAL (test U/L 50-136 code = ALKP) [id number] 10:57:00 Test Item Value Reference Range Interpretation Comments LIPASE (test code = LIP) 56 U/L 73-393 L [id number] 10:57:00 Test Item Value Reference Range Interpretation Comments TROPONIN-I (test code = TROPI) ng/ml 0.00-0.045 BASIC METABOLIC [id number] 10:53:00 Test Item Value Reference Range Interpretation [...] (test code = CA) mg/dL 8.5-10.1 LIVER [id number] 10:53:00 Test Item Value Reference Range Interpretation Comments TOTAL PROTEIN (test code = PROT) g/dl 6.4-8.2 ALBUMIN (test code = ALB) g/dl 3.4-5.0 BILIRUBIN TOTAL (test code = BILT) mg/dl 0.2-1.0 BILIRUBIN DIRECT (test code = BILD) mg/dl 0.0-0.4 SGOT/AST (test code = AST) U/L 15-37 SGPT/ALT (test code = ALT) U/L 12-78 ALKALINE PHOSPHATASE TOTAL (test code U/L 50-136 = ALKP) [id number] 10:53:00 Test Item Value Reference Range Interpretation Comments LIPASE (test code = LIP) U/L 73-393 [id number] 10:53:00 Test Item Value Reference Range Interpretation Comments TROPONIN-I (test code = TROPI) ng/ml 0.00-0.045 CBC W/AUTO [id number] 10:43:00 Test Item Value Reference Range Interpretation [...] code = 0.00 K/mm3 0.0-0.1 N NRBC#) [id number] 10:39:00 Test Item Value Reference Range Interpretation Comments GLUBED (test code = 228 mg/dL 70-105 H Performe d by certified GLUBED) 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 [facility] BASIC METABOLIC [id number] 02:26:00 Test Item Value Reference Range Interpretation [...] = 10.3 mg/dL 8.5-10.1 H CA) LIVER [id number] 02:26:00 Test Item Value Reference Range Interpretation [...] 79 U/L 45-117 N code = ALKP) [id number] 02:26:00 Test Item Value Reference Range Interpretation Comments LIPASE (test code = LIP) 138 U/L 73-393 N PROTHROMBIN [id number] 02:16:00 Test Item Value Reference Interpretation Comments [...] with mechanical prosthetic heart valves. THROMBOPLASTIN TIME [id number] 02:16:00 Test Item Value Reference Range Interpretation Comments THROMBOPLASTIN TIME PARTIAL 24.8 seconds 22.8-34.4 N (test code = PTT) CBC W/AUTO [id number] 02:03:00 Test Item Value Reference Range Interpretation [...] (test NO NORMAL code = RBCM) LACTIC [id number] 02:02:00 Test Item Value Reference Range Interpretation Comments LACTIC ACID (test code = LACT) 2.0 mmol/l 0.4-2.0 N [id number] 20:16:00 Test Item Value Reference Range Interpretation Comments GLUBED (test code = 189 mg/dL 70-105 H Performe d by certified GLUBED) 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 [facility]2020-07-31 16:43:00 Test Item Value Reference Range Interpretation Comments GLUBED (test code = 197 mg/dL 70-105 H Performe d by certified GLUBED) 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 [facility]2020-07-31 11:20:00 Test Item Value Reference Range Interpretation Comments GLUBED (test code = 289 mg/dL 70-105 H Performe d by certified GLUBED) 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 [facility]2020-07-31 07:36:00 Test Item Value Reference Range Interpretation Comments GLUBED (test code = 154 mg/dL 70-105 H Performe d by certified GLUBED) 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 [facility]2020-07-30 20:42:00 Test Item Value Reference Range Interpretation Comments GLUBED (test code = 155 mg/dL 70-105 H Performe d by certified GLUBED) 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 [facility]2020-07-30 15:46:00 Test Item Value Reference Range Interpretation Comments GLUBED (test code = 201 mg/dL 70-105 H Performe d by certified GLUBED) 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 [facility]2020-07-30 11:32:00 Test Item Value Reference Range Interpretation Comments GLUBED (test code = 252 mg/dL 70-105 H Performe d by certified GLUBED) 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 [facility]2020-07-30 08:37:00 Test Item Value Reference Range Interpretation Comments GLUBED (test code = 225 mg/dL 70-105 H Performe d by certified GLUBED) 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 [facility] [id number] 04:12:00 Test Item Value Reference Range Interpretation Comments CREATININE (test code = CREAT) 1.00 mg/dL 0.67-1.17 N CBC W/AUTO [id number] 04:03:00 Test Item Value Reference Range Interpretation [...] code = 0.00 K/mm3 0.0-0.1 N NRBC#) [id number] 19:33:00 Test Item Value Reference Range Interpretation Comments GLUBED (test code = 236 mg/dL 70-105 H Performe d by certified GLUBED) 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 [facility]2020-07-29 16:33:00 Test Item Value Reference Range Interpretation Comments GLUBED (test code = 225 mg/dL 70-105 H Performe d by certified GLUBED) 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 [facility]2020-07-29 11:29:00 Test Item Value Reference Range Interpretation Comments GLUBED (test code = 298 mg/dL 70-105 H Performe d by certified GLUBED) 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 [facility]2020-07-29 08:00:00 Test Item Value Reference Range Interpretation Comments GLUBED (test code = 279 mg/dL 70-105 H Performe d by certified GLUBED) 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 [facility]2020-07-28 21:36:00 Test Item Value Reference Range Interpretation Comments GLUBED (test code = 243 mg/dL 70-105 H Performe d by certified GLUBED) 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 [facility]2020-07-28 16:54:00 Test Item Value Reference Range Interpretation Comments GLUBED (test code = 227 mg/dL 70-105 H Performe d by certified GLUBED) 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 [facility]2020-07-28 12:06:00 Test Item Value Reference Range Interpretation Comments GLUBED (test code = 292 mg/dL 70-105 H Performe d by certified GLUBED) 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 [facility]2020-07-28 07:21:00 Test Item Value Reference Range Interpretation Comments GLUBED (test code = 341 mg/dL 70-105 H Performe d by certified GLUBED) 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 [facility]2020-07-27 23:10:00 Test Item Value Reference Range Interpretation Comments GLUBED (test code = 318 mg/dL 70-105 H Performe d by certified GLUBED) 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 [facility]2020-07-27 17:57:00 Test Item Value Reference Range Interpretation Comments GLUBED (test code = 317 mg/dL 70-105 H Performe d by certified GLUBED) 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 [facility]2020-07-27 11:45:00 Test Item Value Reference Range Interpretation Comments GLUBED (test code = 318 mg/dL 70-105 H Performe d by certified GLUBED) 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 [facility]2020-07-27 07:22:00 Test Item Value Reference Range Interpretation Comments GLUBED (test code = 305 mg/dL 70-105 H Performe d by certified GLUBED) 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 [facility]2020-07-26 20:16:00 Test Item Value Reference Range Interpretation Comments GLUBED (test code = 202 mg/dL 70-105 H Performe d by certified GLUBED) 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 [facility]2020-07-26 16:57:00 Test Item Value Reference Range Interpretation Comments GLUBED (test code = 298 mg/dL 70-105 H Performe d by certified GLUBED) 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 [facility]2020-07-26 10:12:00 Test Item Value Reference Range Interpretation Comments GLUBED (test code = 396 mg/dL 70-105 H Performe d by certified GLUBED) 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 [facility]2020-07-25 20:52:00 Test Item Value Reference Range Interpretation Comments GLUBED (test code = 276 mg/dL 70-105 H Performe d by certified GLUBED) 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 [facility]2020-07-25 16:20:00 Test Item Value Reference Range Interpretation Comments GLUBED (test code = 230 mg/dL 70-105 H Performe d by certified GLUBED) 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 [facility]2020-07-25 11:50:00 Test Item Value Reference Range Interpretation Comments GLUBED (test code = 299 mg/dL 70-105 H Performe d by certified GLUBED) 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 [facility]2020-07-25 07:26:00 Test Item Value Reference Range Interpretation Comments GLUBED (test code = 278 mg/dL 70-105 H Performe d by certified GLUBED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 Test Item Value Reference Range Interpretation Comments GLUBED (test code = 196 mg/dL 70-105 H Performe d by certified GLUBED) 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 [facility]2020-07-24 16:17:00 Test Item Value Reference Range Interpretation Comments GLUBED (test code = 274 mg/dL 70-105 H Performe d by certified GLUBED) 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 [facility]2020-07-24 11:38:00 Test Item Value Reference Range Interpretation Comments GLUBED (test code = 280 mg/dL 70-105 H Performe d by certified GLUBED) 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 [facility]2020-07-24 07:37:00 Test Item Value Reference Range Interpretation Comments GLUBED (test code = 235 mg/dL 70-105 H Performe d by certified GLUBED) 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 [facility]2020-07-23 22:34:00 Test Item Value Reference Range Interpretation Comments GLUBED (test code = 217 mg/dL 70-105 H Performe d by certified GLUBED) 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 [facility]2020-07-23 18:05:00 Test Item Value Reference Range Interpretation Comments GLUBED (test code = 264 mg/dL 70-105 H Performe d by certified GLUBED) 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 [facility]2020-07-23 11:09:00 Test Item Value Reference Range Interpretation Comments GLUBED (test code = 273 mg/dL 70-105 H Performe d by certified GLUBED) 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 [facility] COMPREHENSIVE METABOLIC [id number] 08:14:00 Test Item Value Reference Range Interpretation [...] TOTAL (test code = ALKP) COMPREHENSIVE METABOLIC [id number] 08:13:00 Test Item Value Reference Range Interpretation [...] TOTAL (test code = ALKP) COMPREHENSIVE METABOLIC [id number] 08:12:00 Test Item Value Reference Range Interpretation [...] TOTAL (test code = ALKP) COMPREHENSIVE METABOLIC [id number] 08:11:00 Test Item Value Reference Range Interpretation [...] TOTAL (test code = ALKP) COMPREHENSIVE METABOLIC [id number] 08:09:00 Test Item Value Reference Range Interpretation [...] U/L 50-136 code = ALKP) COMPREHENSIVE METABOLIC [id number] 08:08:00 Test Item Value Reference Range Interpretation [...] U/L 50-136 code = ALKP) COMPREHENSIVE METABOLIC [id number] 08:03:00 Test Item Value Reference Range Interpretation [...] U/L 50-136 code = ALKP) CBC W/AUTO [id number] 07:55:00 Test Item Value Reference Range Interpretation [...] code = 0.00 K/mm3 0.0-0.1 N NRBC#) [id number] 19:39:00 Test Item Value Reference Range Interpretation Comments GLUBED (test code = 239 mg/dL 70-105 H Performe d by certified GLUBED) 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 [facility] CARDIO C REACTIVE PROTEIN [id number] 16:49:00 Test Item Value Reference Range Interpretation Comments CARDIO C REACTIVE 54.80 0.0-3.0 H CCRP MG/L RISK ACCORDING TO PROTEIN HS (test code AHA/CD C GUIDELINES--------- = CCRP) ---------<1.0 L OW CARDIOVASCULAR RISK1.0 - 3.0 AVERAGE CAR DIOVASCULAR RISK3.1 - 10.0 HIGH CARDIOVASCULAR RISK>10.0 PERSISTENT ELEV ATIONS MAY REPRESENT NON-CARDIOVASCU LAR INFLAMMATION SED [id number] 16:47:00 Test Item Value Reference Range Interpretation Comments SED RATE (test code = SEDW) 134 mm/hr 0-15 H [id number] 16:11:00 Test Item Value Reference Range Interpretation Comments GLUBED (test code = 162 mg/dL 70-105 H Performe d by certified GLUBED) 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 [facility] [id number] 11:20:00 Test Item Value Reference Range Interpretation Comments GLUBED (test code = 276 mg/dL 70-105 H Performe d by certified GLUBED) 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 [facility] [id number] 07:12:00 Test Item Value Reference Range Interpretation Comments GLUBED (test code = 238 mg/dL 70-105 H Performe d by certified GLUBED) 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 [facility] [id number] 21:21:00 Test Item Value Reference Range Interpretation Comments GLUBED (test code = 212 mg/dL 70-105 H Performe d by certified GLUBED) 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 [facility] [id number] 16:44:00 Test Item Value Reference Range Interpretation Comments GLUBED (test code = 236 mg/dL 70-105 H Performe d by certified GLUBED) 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 [facility] [id number] 12:01:00 RUN DATE: 12/06/19 [facility] LAB LIVE PAGE 1 RUN TIME: 1201 Specimen Inquiry RUN USER: INTERFACE PATIENT: RADHA LEE Arron LOC: [facility] U #: [id number] AGE/SX: 39/M [facility]: Joe Wolf MD : 84 BED: A DIS: STATUS: ADM IN TLOC: SPEC #: [id number] RECD: 12/05/19 STATUS: DINORA RUSSELL #: [id number] JOEL: 12/05/19- SUBM DR: Simone Cabrera ENTERED: 12/05/19 SP TYPE: SURGICAL OTHR DR: Rosalina Morales DPM, Jose Luciano MVafaie, Nathan Payam MD Wong, Antonio MDORDERED: SURG/PATH GROSS GROSS DESCRIPTION: The specimen is received in formalin in a container labeled "RADHA LEE - RIGHT FOOT TISSUE". The specimen consists of several irregular fragments of pinkish- red tissue measuring 10 x 2.5 x 2.3 cm. Some of the tissue appears to be necrotic. All these fragments, in aggregate, measure 3.5 x 2.5 x 2.3 cm. Sections are submitted for permanents in one cassette. COPIES TO: Rosalina Morales DPM [address] [place] [address] Simone Cabrera [address] [place], [place] [address], [place] [phone] Ld Rutherford MD [address] [place] [address] Galindo Chris MD [address] [place] [address] PROCEDURES: SURG/PATH GROSS (12/05/19) TISSUES: FOOT - RIGHT FOOT TISSUE CONTINUED ON NEXT PAGE RUN DATE: 12/06/19 [facility] LAB LIVE PAGE 2 RUN TIME: 1201 Specimen Inquiry RUN USER: INTERFACE SPEC #: [id number] PATIENT: RADHA LEE Arron #[id number] (Continued) Surgery information Surgery date 12/05/19 Surgeon(s): SIMONE BLANK Pre-Op Dx: RIGHT FOOT ULCER Post-Op Dx: SAME Signed SIGNATURE ON FILE Simone Suarez 12/06/19 1201 END OF REPORT GLUBED 2019-12-06 11:54:00 Test Item Value Reference Range Interpretation Comments GLUBED (test code = 300 mg/dL 70-105 H Performe d by certified GLUBED) 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 [facility] BASIC METABOLIC [id number] 11:28:00 Test Item Value Reference Range Interpretation [...] 8.6 mg/dL 8.5-10.1 N CA) BASIC METABOLIC [id number] 11:25:00 Test Item Value Reference Range Interpretation [...] CA) 8.6 mg/dL 8.5-10.1 N BASIC METABOLIC [id number] 11:24:00 Test Item Value Reference Range Interpretation [...] CA) 8.6 mg/dL 8.5-10.1 N CBC W/AUTO [id number] 09:58:00 Test Item Value Reference Range Interpretation [...] code = INCREASED ADEQUATE PLTEST) BASIC METABOLIC [id number] 08:57:00 Test Item Value Reference Range Interpretation [...] code = CA) mg/dL 8.5-10.1 CBC W/AUTO [id number] 08:42:00 Test Item Value Reference Range Interpretation [...] code = 0.00 K/mm3 0.0-0.1 N NRBC#) [id number] 07:57:00 Test Item Value Reference Range Interpretation Comments GLUBED (test code = 330 mg/dL 70-105 H Performe d by certified GLUBED) 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 [facility]2020-07-20 22:44:00 Test Item Value Reference Range Interpretation Comments GLUBED (test code = 284 mg/dL 70-105 H Performe d by certified GLUBED) 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 [facility]2020-07-20 18:22:00 Test Item Value Reference Range Interpretation Comments GLUBED (test code = 269 mg/dL 70-105 H Performe d by certified GLUBED) 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 [facility]2020-07-20 13:13:00 Test Item Value Reference Range Interpretation Comments GLUBED (test code = 202 mg/dL 70-105 H Performe d by certified GLUBED) 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 [facility] BASIC METABOLIC [id number] 09:04:00 Test Item Value Reference Range Interpretation [...] 9.2 mg/dL 8.5-10.1 N CA) BASIC METABOLIC [id number] 09:03:00 Test Item Value Reference Range Interpretation [...] CA) 9.2 mg/dL 8.5-10.1 N BASIC METABOLIC [id number] 09:01:00 Test Item Value Reference Range Interpretation [...] = CA) 9.2 mg/dL 8.5-10.1 N PROTHROMBIN [id number] 09:01:00 Test Item Value Reference Interpretation Comments [...] heart valves. LAB ANTICOAGULANT QUERY UNKNOWNTHROMBOPLASTIN TIME [id number] 09:01:00 Test Item Value Reference Range Interpretation Comments THROMBOPLASTIN TIME PARTIAL 29.3 seconds 22.8-34.4 N (test code = PTT) LAB ANTICOAGULANT QUERY UNKNOWNBASIC METABOLIC [id number] 08:46:00 Test Item Value Reference Range Interpretation [...] code = CA) mg/dL 8.5-10.1 CBC W/AUTO [id number] 08:33:00 Test Item Value Reference Range Interpretation [...] code = 0.00 K/mm3 0.0-0.1 N NRBC#) [id number] 08:03:00 Test Item Value Reference Range Interpretation Comments GLUBED (test code = 240 mg/dL 70-105 H Performe d by certified GLUBED) 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 [facility]2020-07-19 21:40:00 Test Item Value Reference Range Interpretation Comments GLUBED (test code = 208 mg/dL 70-105 H Performe d by certified GLUBED) 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 [facility]2020-07-19 17:39:00 Test Item Value Reference Range Interpretation Comments GLUBED (test code = 250 mg/dL 70-105 H Performe d by certified GLUBED) 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 [facility] COVID 19 Asymptomatic IH [id number] 17:18:00 Test Item Value Reference Interpretation Comments Range COVID 19 Presumed NEGATIVE SEBASTIEN COVID-19 Asymptomatic IH AG Negative --------- ------Results (test code = are for the COVNONPUIAG) identification of LHUL-CeP-1hpjdk ocapsid protein antigen . Antigen is generallydet [...] nd Drug Administration' s Emergency Use Authorization. [id number] 12:09:00 Test Item Value Reference Range Interpretation Comments GLUBED (test code = 191 mg/dL 70-105 H Performe d by certified GLUBED) 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 [facility] [id number] 09:54:00 Test Item Value Reference Range Interpretation Comments GLYCOSYLATED 11.3 % <5.7 H SUGGESTED DIAG NOSIS HEMOGLOBIN (HA1C) INTERPRETA TION (test code = GLYHGB) ------- Nor mal: <5.7% Prediabe moo: 5.7 - 6.4% Diabetic : >/= 6.5%* DUE TO ME THOD REVISION, REFER ENCE RANGE HAS BEEN UPDATED * ESTIMATED AVERAGE 278 MG/DL <126 GLUCOSE (test code = EAG) BASIC METABOLIC [id number] 09:16:00 Test Item Value Reference Range Interpretation [...] 9.5 mg/dL 8.5-10.1 N CA) CBC W/AUTO [id number] 08:55:00 Test Item Value Reference Range Interpretation [...] code = 0.00 K/mm3 0.0-0.1 N NRBC#) [id number] 08:21:00 Test Item Value Reference Range Interpretation Comments GLUBED (test code = 228 mg/dL 70-105 H Performe d by certified GLUBED) 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 [facility]2020-07-18 21:14:00 Test Item Value Reference Range Interpretation Comments GLUBED (test code = 178 mg/dL 70-105 H Performe d by certified GLUBED) 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 [facility]2020-07-18 17:11:00 Test Item Value Reference Range Interpretation Comments GLUBED (test code = 149 mg/dL 70-105 H Performe d by certified GLUBED) 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 [facility] - [place] BONE 3 [id number] 15:01:00 FAX: Galindo Abdullahi MD [phone] Margie: [facility] St: ADM Name: RADHA LEE [facility] : 1980Age/S: 39/M [address] [facility] Unit #: [id number] Loc: [place] [address] Phys: Joe Wolf MD Acct: [id number] Dis Date: Status: ADM IN PHONE #: [phone] Exam Date: 12/02/2019 8790 FAX #: [phone] Reason: DIABETIC FOOT/UNABLE TO HAVE MRI EXAMS: CPT CODE: [id number] NM BONE 3 PHASE 21921 RADIOPHARMACEUTICAL: 20 mCi Tc-99m -MDP IV Correlated with foot radiograph dated December 01, 2019 FINDINGS: Three phase imaging was performed of the bilateral feet with immediate blood flow views, blood pool images, and delayed whole-body images provided. Increase immediate, delayed blood flow,and delayed imaging scintigraphic activity involving the right [...] activity of the left ankle lateral malleolus concerningfor osteomyelitis. Consider correlation with left ankle radiographs. Location: V20 ElectronicallySigned by JIMMIE FERNANDEZ M.D. on 12/03/2019 at 1501 Reported and signed by: JIMMIE FERNANDEZ M.D. CC: Galindo Chris MD Technologist: AIDAN LandrumT,SALES VICE PRESIDENT,RTR Trnscrd Date/Time/By: 12/03/2019 (8124) : By: [email or web address] Orig Print D/T: S: 12/03/2019 (7363) PAGE 1 Signed [id number] 12:21:00 Test Item Value Reference Range Interpretation Comments GLUBED (test code = 149 mg/dL 70-105 H Performe d by certified GLUBED) 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 08:44:00 Test Item Value Reference Range Interpretation Comments GLUBED (test code = 191 mg/dL 70-105 H Performe d by certified GLUBED) 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 [facility]2020-07-17 21:21:00 Test Item Value Reference Range Interpretation Comments GLUBED (test code = 156 mg/dL 70-105 H Performe d by certified GLUBED) 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 [facility]2020-07-17 16:57:00 Test Item Value Reference Range Interpretation Comments GLUBED (test code = 143 mg/dL 70-105 H Performe d by certified GLUBED) 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 [facility]2020-07-17 11:37:00 Test Item Value Reference Range Interpretation Comments GLUBED (test code = 152 mg/dL 70-105 H Performe d by certified GLUBED) 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 [facility] BASIC METABOLIC [id number] 08:08:00 Test Item Value Reference Range Interpretation [...] 8.5 mg/dL 8.5-10.1 N CA) BASIC METABOLIC [id number] 08:04:00 Test Item Value Reference Range Interpretation [...] CA) 8.5 mg/dL 8.5-10.1 N BASIC METABOLIC [id number] 08:03:00 Test Item Value Reference Range Interpretation [...] code = CA) mg/dL 8.5-10.1 CBC W/AUTO [id number] 07:56:00 Test Item Value Reference Range Interpretation [...] code = 0.00 K/mm3 0.0-0.1 N NRBC#) [id number] 07:15:00 Test Item Value Reference Range Interpretation Comments GLUBED (test code = 125 mg/dL 70-105 H Performe d by certified GLUBED) 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 [facility] [id number] 21:13:00 Test Item Value Reference Range Interpretation Comments GLUBED (test code = 178 mg/dL 70-105 H Performe d by certified GLUBED) 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 [facility] [id number] 17:49:00 Test Item Value Reference Range Interpretation Comments GLYCOSYLATED 11.5 % <5.7 H SUGGESTED DIAG NOSIS HEMOGLOBIN (HA1C) INTERPRETA TION (test code = GLYHGB) ------- Nor mal: <5.7% Prediabet es: 5.7 - 6.4% Diabetic : >/= 6.5%* DUE TO ME THOD REVISION, REFER ENCE RANGE HAS BEEN UPDATED * ESTIMATED AVERAGE 283 MG/DL <126 GLUCOSE (test code = EAG) [id number] 16:39:00 Test Item Value Reference Range Interpretation Comments GLUBED (test code = 91 mg/dL 70-105 N Performe d by certified GLUBED) 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 [facility] BASIC METABOLIC [id number] 05:21:00 Test Item Value Reference Range Interpretation [...] = 10.2 mg/dL 8.5-10.1 H CA) LIVER [id number] 05:21:00 Test Item Value Reference Range Interpretation [...] 87 U/L 45-117 N code = ALKP) [id number] 05:21:00 Test Item Value Reference Range Interpretation [...] nd/or septic shock. CARDIO C REACTIVE PROTEIN [id number] 05:21:00 Test Item Value Reference Range Interpretation Comments CARDIO C REACTIVE 88.80 0.0-3.0 H CCRP MG/L RISK ACCORDING TO PROTEIN HS (test code AHA/CD C GUIDELINES--------- = CCRP) ---------<1.0 L OW CARDIOVASCULAR RISK1.0 - 3.0 AVERAGE CAR DIOVASCULAR RISK3.1 - 10.0 HIGH CARDIOVASCULAR RISK>10.0 PERSISTENT ELEV ATIONS MAY REPRESENT NON-CARDIOVASCU LAR INFLAMMATION CBC W/AUTO [id number] 03:55:00 Test Item Value Reference Range Interpretation [...] (test NO NORMAL code = RBCM) SED [id number] 03:55:00 Test Item Value Reference Range Interpretation Comments SED RATE (test code = SEDW) 26 mm/hr 0-15 H BASIC METABOLIC [id number] 03:39:00 Test Item Value Reference Range Interpretation [...] = 10.2 mg/dL 8.5-10.1 H CA) LIVER [id number] 03:39:00 Test Item Value Reference Range Interpretation [...] 87 U/L 45-117 N code = ALKP) [id number] 03:39:00 Test Item Value Reference Range Interpretation Comments LIPASE (test code = LIP) 74 U/L 73-393 N CARDIO C REACTIVE PROTEIN [id number] 03:39:00 Test Item Value Reference Range Interpretation Comments CARDIO C REACTIVE 88.80 0.0-3.0 H CCRP MG/L RISK ACCORDING TO PROTEIN HS (test code AHA/CD C GUIDELINES--------- = CCRP) ---------<1.0 L OW CARDIOVASCULAR RISK1.0 - 3.0 AVERAGE CAR DIOVASCULAR RISK3.1 - 10.0 HIGH CARDIOVASCULAR RISK>10.0 PERSISTENT ELEV ATIONS MAY REPRESENT NON-CARDIOVASCU LAR INFLAMMATION - XR FOOT 3+ V [id number] 03:11:00 FAX: Ld Rutherford Margie: [facility]: PRE FAX: Galindo Abdullahi MD [phone] Name: RADHA LEE [place] FSED : 1980 Age/S: 39/M [address] Unit #: [id number] Loc: [place] [address] Phys: Ld Rutherford MD Acct: [id number] Dis Date: Status: PRE ER PHONE #: Exam Date: 12/01/2019 0247 FAX #: Reason: diabetic foot wound, pain EXAMS: CPT CODE: [id number] XR FOOT 3+ [place] RT [address] EXAM: - XR FOOT 3+ V RT [...] MD; Galindo Chris MD Technologist: Jamil Cox (R) Trnscrd Date/Time/By: 12/01/2019 (310): By: [email or web address] Orig Print D/T: S: 12/01/2019 (3) PAGE 1 Signed Report BASIC METABOLIC [id number] 02:59:00 Test Item Value Reference Range Interpretation [...] = 10.2 mg/dL 8.5-10.1 H CA) LIVER [id number] 02:59:00 Test Item Value Reference Range Interpretation [...] 87 U/L 45-117 N code = ALKP) [id number] 02:59:00 Test Item Value Reference Range Interpretation Comments LIPASE (test code = LIP) 74 U/L 73-393 N CARDIO C REACTIVE PROTEIN [id number] 02:59:00 Test Item Value Reference Range Interpretation Comments CARDIO C REACTIVE PROTEIN HS (test code 0.0-3.0 = CCRP) CBC W/AUTO [id number] 02:46:00 Test Item Value Reference Range Interpretation [...] (test NO NORMAL code = RBCM) SED [id number] 02:46:00 Test Item Value Reference Range Interpretation Comments SED RATE (test code = SEDW) mm/hr 0-15 [id number] 11:14:00 Test Item Value Reference Range Interpretation Comments GLUBED (test code = 223 mg/dL 70-105 H Performe d by certified GLUBED) 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 [facility] [id number] 06:41:00 Test Item Value Reference Range Interpretation Comments GLUBED (test code = 281 mg/dL 70-105 H Performe d by certified GLUBED) 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 [facility] COMPREHENSIVE METABOLIC [id number] 04:09:00 Test Item Value Reference Range Interpretation [...] TOTAL (test code = ALKP) CBC W/AUTO [id number] 03:32:00 Test Item Value Reference Range Interpretation [...] code = 0.00 K/mm3 0.0-0.1 N NRBC#) [id number] 20:11:00 Test Item Value Reference Range Interpretation Comments GLUBED (test code = 123 mg/dL 70-105 H Performe d by certified GLUBED) 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 [facility]2020-05-31 15:45:00 Test Item Value Reference Range Interpretation Comments GLUBED (test code = 156 mg/dL 70-105 H Performe d by certified GLUBED) 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 [facility]2020-05-31 11:33:00 Test Item Value Reference Range Interpretation Comments GLUBED (test code = 203 mg/dL 70-105 H Performe d by certified GLUBED) 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 [facility]2020-05-31 07:00:00 Test Item Value Reference Range Interpretation Comments GLUBED (test code = 219 mg/dL 70-105 H Performe d by certified GLUBED) 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 [facility]2020-05-30 22:19:00 Test Item Value Reference Range Interpretation Comments GLUBED (test code = 168 mg/dL 70-105 H Performe d by certified GLUBED) 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 [facility]2020-05-30 17:28:00 Test Item Value Reference Range Interpretation Comments GLUBED (test code = 115 mg/dL 70-105 H Performe d by certified GLUBED) 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 [facility] COMPREHENSIVE METABOLIC [id number] 12:30:00 Test Item Value Reference Range Interpretation [...] TOTAL (test code = ALKP) CBC W/AUTO [id number] 12:22:00 Test Item Value Reference Range Interpretation [...] code = 0.00 K/mm3 0.0-0.1 N NRBC#) [id number] 11:24:00 Test Item Value Reference Range Interpretation Comments GLUBED (test code = 233 mg/dL 70-105 H Performe d by certified GLUBED) 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 [facility]2020-05-30 07:03:00 Test Item Value Reference Range Interpretation Comments GLUBED (test code = 221 mg/dL 70-105 H Performe d by certified GLUBED) 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 [facility] [id number] 20:59:00 Test Item Value Reference Range Interpretation Comments GLUBED (test code = 176 mg/dL 70-105 H Performe d by certified GLUBED) 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 [facility] [id number] 16:00:00 Test Item Value Reference Range Interpretation Comments GLUBED (test code = 204 mg/dL 70-105 H Performe d by certified GLUBED) 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 [facility] BASIC METABOLIC [id number] 13:27:00 Test Item Value Reference Range Interpretation [...] REPORT ED RESULT BY1.. CREATININE (test code 0.90 mg/dL 0.67-1.17 = CREAT) CALCIUM (test code = 9.0 mg/dL 8.5-10.1 N CA) BASIC METABOLIC [id number] 13:26:00 Test Item Value Reference Range Interpretation [...] code = CA) 9.0 mg/dL 8.5-10.1 N [id number] 13:04:00 Test Item Value Reference Range Interpretation Comments GLUBED (test code = 241 mg/dL 70-105 H Performe d by certified GLUBED) 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 [facility] [id number] 06:22:00 Test Item Value Reference Range Interpretation Comments GLUBED (test code = 218 mg/dL 70-105 H Performe d by certified GLUBED) 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 [facility] [id number] 20:52:00 Test Item Value Reference Range Interpretation Comments GLUBED (test code = 189 mg/dL 70-105 H Performe d by certified GLUBED) 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 [facility] [id number] 16:02:00 Test Item Value Reference Range Interpretation Comments GLUBED (test code = 253 mg/dL 70-105 H Performe d by certified GLUBED) 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 [facility] [id number] 13:35:00 Test Item Value Reference Range Interpretation Comments GLYCOSYLATED 13.3 % <5.7 H SUGGESTED DIAG NOSIS HEMOGLOBIN (HA1C) INTERPRETA TION (test code = GLYHGB) ------- Nor mal: <5.7% Prediabet es: 5.7 - 6.4% Diabetic : >/= 6.5%* DUE TO ME THOD REVISION, REFER ENCE RANGE HAS BEEN UPDATED * ESTIMATED AVERAGE 335 MG/DL <126 GLUCOSE (test code = EAG) [id number] 13:13:00 Test Item Value Reference Range Interpretation Comments GLUBED (test code = 245 mg/dL 70-105 H Performe d by certified GLUBED) 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 [facility] [id number] 08:01:00 Test Item Value Reference Range Interpretation Comments GLUBED (test code = 352 mg/dL 70-105 H Performe d by certified GLUBED) 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 [facility] UA RFLX MICROSCOPIC [id number] 07:45:00 Test Item Value Reference Range Interpretation Comments UA COLOR (test code = LT YELLOW YELLOW COLU) UA APPEARANCE (test CLEAR CLEAR code = APPU) UA GLUCOSE DIPSTICK >1000 mg/dl NORMAL URGENT V ALUE---- (test code = DGLUU) RESULT C ESVIN AND READ BACK Martin ARCOS [id number] 10/13/19 . Ebony Tan UA BILIRUBIN DIPSTICK [...] culture: Dysuria/FrequencyURINE SOURCE: CLEAN CATCH URINEBASIC METABOLIC [id number] 06:25:00 Test Item Value Reference Range Interpretation [...] = 10.1 mg/dL 8.5-10.1 N CA) LIVER [id number] 06:25:00 Test Item Value Reference Range Interpretation [...] 69 U/L 50-136 N code = ALKP) [id number] 06:25:00 Test Item Value Reference Range Interpretation Comments LIPASE (test code = LIP) 68 U/L 73-393 L [id number] 06:25:00 Test Item Value Reference Range Interpretation Comments TROPONIN-I (test <0.015 ng/ml 0.00-0.045 N GUIDELINES: 0.08 - 0.09 code = TROPI) Indeterminate0 .10 Risk Stratification Limit: Suggest sequent ial testing0.60 - 1 .50 AMI cutoff: Myocard ial Injury by WHO criteria CBC W/AUTO [id number] 06:04:00 Test Item Value Reference Range Interpretation [...] 0.00 K/mm3 0.0-0.1 N NRBC#) UR PORPHYRINS [id number] 10:50:00 Test Item Value Reference Range Interpretation Comments UR PORPHYRINS QUANT (test SENT TO REF LAB code = PORUQT) MF=0681 MLS/[id number] 08:47:00 Test Item Value Reference Range Interpretation Comments GLUBED (test code = 220 mg/dL 70-105 H Performe d by certified GLUBED) 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 [facility] BASIC METABOLIC [id number] 07:05:00 Test Item Value Reference Range Interpretation [...] code = 8.0 mg/dL 8.5-10.1 L CA) [id number] 07:05:00 Test Item Value Reference Range Interpretation Comments PHOSPHOROUS (test code = PHOS) 1.8 mg/dL 2.5-4.9 L CBC W/AUTO [id number] 06:11:00 Test Item Value Reference Range Interpretation [...] code = 0.00 K/mm3 0.0-0.1 N NRBC#) [id number] 20:43:00 Test Item Value Reference Range Interpretation Comments GLUBED (test code = 117 mg/dL 70-105 H Performe d by certified GLUBED) 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 [facility]2020-01-30 16:49:00 Test Item Value Reference Range Interpretation Comments GLUBED (test code = 163 mg/dL 70-105 H Performe d by certified GLUBED) 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 [facility]2020-01-30 11:36:00 Test Item Value Reference Range Interpretation Comments GLUBED (test code = 171 mg/dL 70-105 H Performe d by certified GLUBED) 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 [facility] [id number] 07:20:00 Test Item Value Reference Range Interpretation Comments GLUBED (test code = 198 mg/dL 70-105 H Performe d by certified GLUBED) 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 [facility] BASIC METABOLIC [id number] 07:20:00 Test Item Value Reference Range Interpretation [...] code = 8.6 mg/dL 8.5-10.1 N CA) [id number] 07:20:00 Test Item Value Reference Range Interpretation Comments PHOSPHOROUS (test code = PHOS) 2.2 mg/dL 2.5-4.9 L CBC W/AUTO [id number] 06:35:00 Test Item Value Reference Range Interpretation [...] code = 0.00 K/mm3 0.0-0.1 N NRBC#) [id number] 21:16:00 Test Item Value Reference Range Interpretation Comments GLUBED (test code = 123 mg/dL 70-105 H Performe d by certified GLUBED) 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 [facility] [id number] 18:31:00 Test Item Value Reference Range Interpretation Comments GLUBED (test code = 171 mg/dL 70-105 H Performe d by certified GLUBED) 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 [facility] - CT ABD PELVIS [id number] 16:22:00 Name: JAYEDNRADHA Arron [facility] : 1980 Age/S: 38 / M [address] [facility] Unit #: [id number] Loc: [place] [address] Phys: Josh Norwood Acct: [id number] Dis Date: Status: ADM IN PHONE #: [phone] Exam Date: 06/15/2019 2719 FAX #: [phone] Reason: ABD PAIN EXAMS: CPT CODE: [id number] CT ABD PELVIS W/CONT 75217 EXAMINATION: - CT ABD PELVIS W/CONT. LOCATION: H 42. HISTORY: Abdominal pain, gastroparesis, cholecystectomy, diabetes. COMPARISON: CTabdomen/pelvis 06/01/2019. TECHNIQUE: CT imaging was performed of abdomen and pelvis after intravenous administration of 100 cc of Isovue-300. Oral contrast material was also administered. One or more the following dose reduction techniques were used: Automated exposure control, adjustment of mA and/orkV according to patient size, and use of [...] tiny left pleural effusion. Fairly extensive atherosclerotic ca lcifications. PAGE 1 Signed Report (CONTINUED) Name: RAHDA LEE [facility] : 1980 Age/S: 38 / M [address] [facility] Unit #: [id number] Loc: [place] [address] Phys: Josh Norwood Acct: [id number] Dis Date: Status: ADM IN PHONE #: [phone] Exam Date: 06/15/2019 1557 FAX #: [phone] Reason: ABD PAIN EXAMS: CPT CODE: [id number] CT ABD PELVIS W/CONT 72781 (Continued) at 1622 Reported and signed by: VERITO MG M.D. 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 [facility] [id number] 06:29:00 Test Item Value Reference Range Interpretation Comments GLUBED (test code = 191 mg/dL 70-105 H Performe d by certified GLUBED) 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 at 6670 Reported and signed by: MEAGAN GONZALES MD CC: Galindo Chris MD Technologist:Jh Johnson, RT (R); Denisha Gallegos RT (R) Transcribed Date/Time: 06/14/2019 (2167) [email or web address] Orig Print D/T: S: 06/14/2019 (9798) PAGE 1 Signed [id number] 20:44:00 Test Item Value Reference Range Interpretation Comments GLUBED (test code = 188 mg/dL 70-105 H Performe d by certified GLUBED) 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 16:32:00 Test Item Value Reference Range Interpretation Comments GLUBED (test code = 180 mg/dL 70-105 H Performe d by certified GLUBED) 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 [facility]2020-01-28 11:37:00 Test Item Value Reference Range Interpretation Comments GLUBED (test code = 223 mg/dL 70-105 H Performe d by certified GLUBED) 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 [facility]2020-01-27 21:58:00 Test Item Value Reference Range Interpretation Comments GLUBED (test code = 135 mg/dL 70-105 H Performe d by certified GLUBED) 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 [facility]2020-01-27 19:17:00 Test Item Value Reference Range Interpretation Comments GLUBED (test code = 162 mg/dL 70-105 H Performe d by certified GLUBED) 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 19:17:00 Test Item Value Reference Range Interpretation Comments GLUBED (test code = 213 mg/dL 70-105 H Performe d by certified GLUBED) 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 [facility] - XR CHEST 1 [id number] 18:19:00 [facility] Name: RADHA LEE [address] [place] [address] Phys: Jin Fatima MD [place] [address] : 1980 Age: 38 Sex: M Acct: [id number] Loc: [facility] PHONE #: [phone] Exam Date: 06/13/2019 Status: REG ER FAX #: [phone] Radiology No: Unit No: [id number] Reason: pain EXAMS: CPT CODE: [id number] XR CHEST 1 V 73102 Fluoro Time: DAP (Gy m2): Air Kerma (mGy): - XR CHEST 1 V, 06/13/2019 5:18 PM Reason For Examination: pain Comparison: June 01, 2019 Location: R16 Findings LUNGS: No definite pulmonary edema or consolidation, although exam findings limited by low lung volumes PLEURA: No pleural effusions CARDIOMEDIASTINAL SILHOUETTE Unremarkable IMPRESSION: Noplain film evidence of acute cardiopulmonary abnormality within the given limitations above Electr onically Signed by BURT OLIVIER M.D. on 06/13/2019 at 1819 Reported and signed by: BURT OLIVIER M.D. CC: Galindo Chris MD Technologist: Denisha Gallegos, RT (R) Transcribed Date/Time: 06/13/2019 (1818) t.SANDRAR.[email or web address] Orig Print D/T: S: 06/13/2019 (1821) PAGE 1 Signed Report COMPREHENSIVE METABOLIC [id number] 18:01:00 Test Item Value Reference Range Interpretation [...] 50-136 N TOTAL (test code = ALKP) [id number] 18:01:00 Test Item Value Reference Range Interpretation Comments LIPASE (test code = LIP) 69 U/L 73-393 L CBC W/AUTO [id number] 17:46:00 Test Item Value Reference Range Interpretation [...] code = 0.00 K/mm3 0.0-0.1 N NRBC#) [id number] 16:38:00 Test Item Value Reference Range Interpretation Comments GLUBED (test code = 195 mg/dL 70-105 H Performe d by certified GLUBED) 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 [facility] [id number] 11:47:00 Test Item Value Reference Range Interpretation Comments GLUBED (test code = 254 mg/dL 70-105 H Performe d by certified GLUBED) 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 [facility] [id number] 06:47:00 Test Item Value Reference Range Interpretation Comments GLYCOSYLATED HEMOGLOBIN (HA1C) 12.2 % 4.2-6.3 H (test code = GLYHGB) ESTIMATED AVERAGE GLUCOSE (test 303 MG/DL <126 code = EAG) COMPREHENSIVE METABOLIC [id number] 06:35:00 Test Item Value Reference Range Interpretation [...] average [address] [id number] 06:35:00 Test Item Value Reference Range Interpretation Comments LIPASE (test code = LIP) 51 U/L 73-393 L CBC W/AUTO [id number] 06:10:00 Test Item Value Reference Range Interpretation [...] code = 0.00 K/mm3 0.0-0.1 N NRBC#) [id number] 00:01:00 Test Item Value Reference Range Interpretation Comments GLUBED (test code = 191 mg/dL 70-105 H Performe d by certified GLUBED) 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 Loc: [place] [address] Phys: Edson Potts Jr, MD Acct: [id number] Dis Date: Status: ADM IN PHONE #: [phone] Exam Date: 06/01/2019 1646 FAX #: [phone] Reason: ABD APIN EXAMS: CPT CODE: [id number] CT ABD PELVIS W/O CONT 55633 - CT ABD PELVIS W/O CONT CLINICAL [...] and sigmoid colon are fully decompressed. There isno free air, free fluid or definite pneumatosis. Scattered nonspecific lymph nodes are seen within the mesentery. Pelvic sidewall is symmetric. The urinary bladder is distended without calculi. Urinarybladder wall does appear to be mildly thickened. The abdominal aorta is normal in caliber with mild atherosclerosis. Degenerative disc disease of the lower lumbar spine is noted. There are vacuum discsat the L4-5 and L5-S1 levels, with mild posterior disc protrusion at the L3-4, L4-5 and to a lesser extent L5-S1 levels.. No acute bony abnormality seen. IMPRESSION: PAGE 1 Signed Report (CONTINUED) Name: RADHA LEE [facility] : 1980 Age/S: 38 / M [address] [facility] Unit #: [id number] Loc: [place] [address] Phys: Edson Potts Jr, MD Acct: [id number] Dis Date: Status: ADM IN PHONE #: [phone] Exam Date: 06/01/2019 1646 FAX #: [phone] Reason: ABD APIN EXAMS: CPT CODE: [id number] CT ABD PELVIS W/O CONT 49227 (Continued) No evidence of intestinal or urinary obstruction. [...] CTDI: 10.33 DLP: 624.19 Trnscb Date/Time: 06/01/2019 ( 1717) tBLAIRR.[email or web address] Orig Print D/T: S: 06/01/2019 (8683) PAGE 2 Signed Report- XR CHEST 1 [id number] 14:37:00 [facility] Name: RADHA LEE [address] [place] [address] Phys: Edson Potts Jr, MD [place] [address] : 1980 Age: 38 Sex: M Acct: [id number] Loc: [place] PHONE #: [phone] Exam Date: 06/01/2019 Status: REG ER FAX #: [phone] Radiology No: Unit No: [id number] Reason:chest pain EXAMS: CPT CODE: [id number] XR CHEST 1 V 89280 Fluoro Time: DAP (Gy m2): Air Kerma [...] Technologist: Anton Martinez RT(R) Transcribed Date/Time: 06/01/2019 (7846) MoonDRB1 Orig Print D/T: S: 06/01/2019 (7744) PAGE 1 Signed ReportPROTHROMBIN [id number] 14:25:00 Test Item Value Reference Interpretation Comments [...] with mechanical prosthetic heart valves. THROMBOPLASTIN TIME [id number] 14:25:00 Test Item Value Reference Range Interpretation Comments THROMBOPLASTIN TIME PARTIAL 24.0 seconds 22.8-34.4 N (test code = PTT) BASIC METABOLIC [id number] 14:21:00 Test Item Value Reference Range Interpretation [...] code = 10.2 mg/dL 8.5-10.1 H CA) [id number] 14:21:00 Test Item Value Reference Range Interpretation Comments LIPASE (test code = LIP) 68 U/L 73-393 L [id number] 14:21:00 Test Item Value Reference Range Interpretation Comments TROPONIN-I (test <0.015 ng/ml 0.00-0.045 N GUIDELINES: 0.08 - 0.09 code = TROPI) Indeterminate0 .10 Risk Stratification Limit: Suggest sequent ial testing0.60 - 1 .50 AMI cutoff: Myocard ial Injury by WHO criteria CBC W/AUTO [id number] 14:11:00 Test Item Value Reference Range Interpretation [...] code = 0.00 K/mm3 0.0-0.1 N NRBC#) [id number] 09:36:00 Test Item Value Reference Range Interpretation Comments GLUBED (test code = 314 mg/dL 70-105 H Performe d by certified GLUBED) 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 [facility] [id number] 09:36:00 Test Item Value Reference Range Interpretation Comments GLUBED (test code = 288 mg/dL 70-105 H Performe d by certified GLUBED) 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 [facility] BASIC METABOLIC [id number] 06:10:00 Test Item Value Reference Range Interpretation [...] = 9.4 mg/dL 8.5-10.1 N CA) LIVER [id number] 06:10:00 Test Item Value Reference Range Interpretation [...] 68 U/L 50-136 N code = ALKP) [id number] 06:10:00 Test Item Value Reference Range Interpretation Comments TRIGLYCERIDES (test code = TRIG) 225 mg/dL 30-150 H [id number] 06:10:00 Test Item Value Reference Range Interpretation Comments LIPASE (test code = LIP) 56 U/L 73-393 L BETA [id number] 06:10:00 Test Item Value Reference Range Interpretation Comments BETA HYDROBUTYRATE (test code = 2.70 mmol/L 0.00-0.28 H BETHYD) BASIC METABOLIC [id number] 06:03:00 Test Item Value Reference Range Interpretation [...] = CA) 9.4 mg/dL 8.5-10.1 N LIVER [id number] 06:03:00 Test Item Value Reference Range Interpretation [...] TOTAL (test U/L 50-136 code = ALKP) [id number] 06:03:00 Test Item Value Reference Range Interpretation Comments TRIGLYCERIDES (test code = TRIG) mg/dL 30-150 [id number] 06:03:00 Test Item Value Reference Range Interpretation Comments LIPASE (test code = LIP) U/L 73-393 BETA [id number] 06:03:00 Test Item Value Reference Range Interpretation Comments BETA HYDROBUTYRATE (test code = mmol/L 0.00-0.28 BETHYD) CBC W/AUTO [id number] 05:59:00 Test Item Value Reference Range Interpretation [...] 0.00 K/mm3 0.0-0.1 N NRBC#) CBC W/AUTO [id number] 06:20:00 Test Item Value Reference Range Interpretation [...] ESTIMATE (test code = INCREASED ADEQUATE PLTEST) [id number] 04:38:00 Test Item Value Reference Range Interpretation Comments GLUBED (test code = 379 mg/dL 70-105 H Performe d by certified GLUBED) 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 Loc: [place], [place] [address] Phys: Emir Marx DO Acct: [id number] Dis Date: Status: REG ER PHONE #: [phone] Exam Date: 05/20/20192355 FAX #: [phone] Reason: PAIN EXAMS:CPT CODE: [id number] CT ABD PELVIS W/O CONT 19991 LOCATION: H43 EXAM: - CT ABD PELVIS W/O CONT HISTORY: PAIN TECHNIQUE: Axial imaging of the abdomen and pelvis from the lung base to the pubic symphysis without administration of intravenous contrast. Sagittal and coronal reconstructions. CT scan performed using appropriate/available dose optimization/reduction techniques. DLP 623.7 mGy/cm COMPARISON:None. FINDINGS: Lung base:The visualized lung base is [...] size. Gastrointestinal tract: Scattered colonic diverticula. No evidence of acute diverticulitis. No abnormal bowel dilatation. Normal caliber appendix is identified. No focal fluid collections, ascites or PAGE 1 Signed Report (CONTINUED) Name: JAYDENRADHA Arron [facility] : 1980 Age/S: 38 / M [address] Unit #: [id number] Loc: [place], [place] [address] Phys: Emir Marx DO Acct: [id number] Dis Date: Status: REG ER PHONE #: [phone] Exam Date: 05/20/20192355 FAX #: [phone] Reason: PAIN EXAMS: CPT CODE: [id number] CT ABD PELVISW/O CONT 91302 (Continued) evidence of pneumoperitoneum. Bones and soft tissues: [...] DLP: 623.67 Trnscb Date/Time: 05/21/2019 (0016) t.SDR.NS15 OrigPrint D/T: S: 05/21/2019 (0019) PAGE 2 Signed ReportUA RFLX MICROSCOPIC [id number] 00:07:00 Test Item Value Reference Range Interpretation [...] culture: Dysuria/FrequencyURINE SOURCE: CLEAN CATCH URINEBASIC METABOLIC [id number] 23:38:00 Test Item Value Reference Range Interpretation [...] 10.0 mg/dL 8.5-10.1 N CA) RECOLLECTION HEMOLYZEDLIVER [id number] 23:38:00 Test Item Value Reference Range Interpretation [...] U/L 50-136 N code = ALKP) RECOLLECTION [id number] 23:38:00 Test Item Value Reference Range Interpretation Comments LIPASE (test code = LIP) 42 U/L 73-393 L RECOLLECTION HEMOLYZEDCBC W/AUTO [id number] 23:03:00 Test Item Value Reference Range Interpretation [...]
[2022-07-07] MEDS ORDERED: MORPHINE 4 MG/ML SYR ONE (03:51)
[2022-07-07] MEDS ORDERED: ONDANSETRON 4 MG/2 ML VIAL ONE (03:51)
--- NOTE | 2022-07-07 03:55 | EDPHYS ---
Physician Documentation [facility] Name: Christian Lee Age: 41 yrs Sex: Male : 1980 Arrival Date: 07/07/2022 Time: 01:51 Bed 18 Private MD: ED Physician Saad Fierro HPI: 07/07 04:28 This 41 yrs old Male presents to ER via Wheelchair with complaints of Foot rt Pain. 04:28 Patient with history of diabetes presents to the ED with pain to his right foot and rt concern for infection to that foot. He has had diabetic foot wounds before. Patient states that he has a purulent discharge from the ulceration at the bottom of his foot and that he feels bony probes it. The patient denies other acute complaints at this time. Symptoms are moderate in severity, no other aggravating or alleviating factors.. 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 - Social history:: Smoking status: Patient denies any tobacco usage or history of. - Family history:: not pertinent. ROS: 04:28 MS/extremity: Positive for Wound, drainage. rt 04:28 Constitutional: Negative for fever, chills, and weight loss, Cardiovascular: Negative for chest pain, palpitations, and edema, Respiratory: Negative for shortness of breath, cough, wheezing, and pleuritic chest pain, Abdomen/GI: Negative for abdominal pain, nausea, vomiting, diarrhea, and constipation, Neuro: Negative for headache, weakness, numbness, tingling, and seizure, Psych: Negative for depression, anxiety, suicide ideation, homicidal ideation, and hallucinations. Exam: 04:28 Constitutional: This is a well developed, well nourished patient who is awake, alert, rt and in no acute distress. Head/Face: Normocephalic, atraumatic. Chest/axilla: Normal chest wall appearance and motion. Nontender with no deformity. No lesions are appreciated. Cardiovascular: Regular rate and rhythm with a normal S1 and S2. No gallops, murmurs, or rubs. Normal PMI, no JVD. No pulse deficits. Respiratory: Lungs have equal breath sounds bilaterally, clear to auscultation and percussion. No rales, rhonchi or wheezes noted. No increased work of breathing, no retractions or nasal flaring. Abdomen/GI: Soft, non-tender, with normal bowel sounds. No distension or tympany. No guarding or rebound. No evidence of tenderness throughout. Neuro: Awake and alert, GCS 15, oriented to person, place, time, and situation. Cranial nerves II-XII grossly intact. Motor strength 5/5 in all extremities. Sensory grossly intact. Cerebellar exam normal. Normal gait. Psych: Awake, alert, with orientation to person, place and time. Behavior, mood, and affect are within normal limits. 04:28 Musculoskeletal/extremity: Wound to the plantar region of the right foot, packing is in place, purulent discharge noted. There is surrounding erythema.. Vital Signs: 02:33 BP 141 / 80; Pulse 113; Resp 18; Temp 98.6(O); Pulse Ox 98% on R/A; Weight 97.52 kg ll3 (R); Height 6 ft. 1 in. (185.42 cm) (R); Pain 9/10; 04:00 BP 115 / 80; Pulse 99; Resp 16; Pulse Ox 96% on R/A; jb4 05:14 BP 125 / 79; Pulse 101; Resp 16; Pulse Ox 96% on R/A; jb4 02:33 Body Mass Index 28.37 (97.52 kg, 185.42 cm) ll3 MDM: 02:21 Patient medically screened. rt 04:28 Differential diagnosis: Cellulitis, abscess, osteomyelitis, sepsis. Data reviewed: rt vital signs, nurses notes, lab test result(s), radiologic studies. Consideration of Admission/Observation Patient was admitted/placed on observation. Management of patient was discussed with the following: Hospitalist: Agrees to admit. I considered the following discharge prescriptions or medication management in the emergency department Medications were administered in the Emergency Department. See MAR. Independent interpretation of the following test(s) in the Emergency Department X-Ray: My interpretation is Erosion on metacarpal seen on monitor potation of the x-ray images. Test considered but Not performed: CT: Low suspicion for necrotizing fasciitis, CT scan not indicated. External Records Reviewed: Inpatient record: Reviewed prior visits as well as surgery notes. Care significantly affected by the following chronic conditions: Diabetes. Counseling: I had a detailed discussion with the patient and/or guardian regarding: the historical points, exam findings, and any diagnostic results supporting the discharge/admit diagnosis, lab results, radiology results, the need for further work-up and treatment in the hospital. 07/07 02:37 Order name: CBC with Diff rt 07/07 02:37 Order name: CMP rt 07/07 02:37 Order name: Lactate w/ 2H reflex if indic. rt 07/07 02:37 Order name: CRP rt 07/07 02:37 Order name: Blood Culture Adult (2) rt 07/07 03:50 Order name: SARS RAPID la1 07/07 02:37 Order name: Foot Right 3 View XRAY rt 07/07 04:01 Order name: CBC with Automated Diff; Complete Time: 04:02 EDMS 07/07 04:08 Order name: Comprehensive Metabolic Panel; Complete Time: 04:13 EDMS 07/07 04:08 Order name: C-Reactive Protein; Complete Time: 04:13 EDMS 07/07 04:08 Order name: Lactate w/ 2H reflex if indic.; Complete Time: 04:13 EDMS 07/07 04:56 Order name: SARS-COV-2 Antigen Rapid EDMS Administered Medications: 03:54 Drug: morphine 4 mg Route: IVP; Infused Over: 4 mins; Site: left forearm; jb4 04:30 Follow up: Response: No adverse reaction; Marked relief of symptoms jb4 03:54 Drug: Zofran (Ondansetron) 4 mg Route: IVP; Site: left forearm; jb4 04:30 Follow up: Response: No adverse reaction; Marked relief of symptoms jb4 04:08 Drug: Cefepime 2 grams Route: IVPB; Rate: 200 ml/hr; Infused Over: 30 mins; Site: left jb4 forearm; 04:38 Follow up: Response: No adverse reaction; IV Status: Completed infusion; IV Intake: jb4 100ml 05:10 Drug: vancoMYCIN 15 mg/kg Route: IVPB; Site: left forearm; jb4 05:34 Follow up: Response: No adverse reaction; IV Status: Infusion continued upon admission jb4 Disposition Summary: 07/07/22 03:55 Hospitalization Ordered Hospitalization Status: Inpatient Admission rt Provider: Apple Florence rt Location: Telemetry/MedSur (Inpatient) rt Condition: Stable rt Problem: an ongoing problem rt Symptoms: are unchanged rt Bed/Room Type: Standard rt Room Assignment: 211(07/07/22 04:57) cg Diagnosis - Osteomyelitis, unspecified rt Forms: - Medication Reconciliation Form rt - SBAR form rt Signatures: Dispatcher [employer] EDJeffrey Pantoja FNP-C RATTAN WORKER-Cla1 Nano Lee RN RN Mo Mehta RN RN jb4 Roland Aguayo RN RN ll3 Saad Fierro MD MD rt Corrections: (The following items were deleted from the chart) 02:39 02:36 Home Meds: lisinopril-hydrochlorothiazide Oral; 3 3 02:39 02:36 PSHx: Gastro nuro stimulator; ll3 ll3 04:57 03:55 rt cg
--- NOTE | 2022-07-07 03:55 | ER ---
Nurse's Notes [facility] Name: Christian Lee Age: 41 yrs Sex: Male : 1980 Arrival Date: 07/07/2022 Time: 01:51 Bed 18 Private MD: Diagnosis: Osteomyelitis, unspecified Presentation: 07/07 02:33 Chief complaint: Patient states: C/o right foot pain and chills X 2-3 days. Coronavirus ll3 screen: Vaccine status: Patient reports receiving the 2nd dose of the covid vaccine. chills. Ebola Screen: No symptoms or risks identified at this time. Initial Sepsis Screen: Does the patient meet any 2 criteria? HR > 90 bpm. No. Patient's initial sepsis screen is negative. Does the patient have a suspected source of infection? Yes: Skin breakdown/wound. Risk Assessment: Do you want to hurt yourself or someone else? Patient reports no desire to harm self or others. Onset of symptoms was July 04, 2022. 02:33 Method Of Arrival: Wheelchair ll3 02:33 Acuity: IRINEO 3 ll3 Historical: - Allergies: 02:36 Clonidine; ll3 02:36 Compazine; ll3 02:36 [place]; GI problems; ll3 02:36 Reglan; ll3 02:36 tramadol; GI problems; ll3 02:36 Fentanyl; ll3 - Home Meds: 02:36 Lantus Sub-Q [Active]; nortriptyline Oral [Active]; Novolog Sub-Q [Active]; Ambien Oral ll3 [Active]; Famotidine Oral 20 mg as needed [Active]; - PMHx: 02:36 diabetes mellitus; Hypertensive disorder; Gastroparesis; insomnia; neuropathy; ll3 Hypercholesterolemia; - PSHx: 02:36 2nd toe amputation R foot; 3rd and 4th toe amputation to Right foot; Cholecystectomy; ll3 - Immunization history:: Client reports receiving the 2nd dose of the Covid vaccine. - Social history:: Smoking status: Patient denies any tobacco usage or history of. - Family history:: not pertinent. Screenin:45 [facility] ED Fall Risk Assessment (Adult) History of falling in the last 3 months, jb4 including since admission No falls in past 3 months (0 pts) Confusion or Disorientation No (0 pts) Score/Fall Risk Level 0 - 2 = Low Risk. Abuse screen: Denies threats or abuse. Nutritional screening: No deficits noted. Tuberculosis screening: No symptoms or risk factors identified. Assessment: 02:45 General: Appears in no apparent distress. uncomfortable, Behavior is calm, cooperative, jb4 appropriate for age. Pain: Complains of pain in right foot Pain does not radiate. Pain currently is 10 out of 10 on a pain scale. Neuro: Level of Consciousness is awake, alert, Oriented to person, place, time, situation. Cardiovascular: Patient's skin is warm and dry. Respiratory: Airway is patent Respiratory effort is even, unlabored, Respiratory pattern is regular, symmetrical. GI: No signs and/or symptoms were reported involving the gastrointestinal system. : No signs and/or symptoms were reported regarding the genitourinary system. EENT: No signs and/or symptoms were reported regarding the EENT system. Derm: Skin is intact, Skin is pink, warm \T\ dry. Musculoskeletal: Circulation, motion, and sensation intact. Range of motion: intact in all extremities. 03:45 Reassessment: Patient appears in no apparent distress at this time. Patient and/or jb4 family updated on plan of care and expected duration. Pain level reassessed. Patient is alert, oriented x 3, equal unlabored respirations, skin warm/dry/pink. 04:45 Reassessment: Patient appears in no apparent distress at this time. Patient and/or jb4 family updated on plan of care and expected duration. Pain level reassessed. Patient is alert, oriented x 3, equal unlabored respirations, skin warm/dry/pink. 05:31 Reassessment: Patient appears in no apparent distress at this time. Patient and/or jb4 family updated on plan of care and expected duration. Pain level reassessed. Patient is alert, oriented x 3, equal unlabored respirations, skin warm/dry/pink. Vital Signs: 02:33 BP 141 / 80; Pulse 113; Resp 18; Temp 98.6(O); Pulse Ox 98% on R/A; Weight 97.52 kg ll3 (R); Height 6 ft. 1 in. (185.42 cm) (R); Pain 9/10; 04:00 BP 115 / 80; Pulse 99; Resp 16; Pulse Ox 96% on R/A; jb4 05:14 BP 125 / 79; Pulse 101; Resp 16; Pulse Ox 96% on R/A; jb4 02:33 Body Mass Index 28.37 (97.52 kg, 185.42 cm) ll3 ED Course: 01:51 Patient arrived in ED. jj6 02:19 Saad Fierro MD is Attending Physician. rt 02:36 Triage completed. ll3 02:36 Arm band placed on. ll3 03:45 Inserted saline lock: 20 gauge in left forearm, using aseptic technique. Blood oe collected. 03:54 Apple Florence MD is Hospitalizing Provider. rt 05:10 Mo Mehta, RN is Primary Nurse. jb4 05:33 No provider procedures requiring assistance completed. Patient admitted, IV remains in jb4 place. Administered Medications: 03:54 Drug: morphine 4 mg Route: IVP; Infused Over: 4 mins; Site: left forearm; jb4 04:30 Follow up: Response: No adverse reaction; Marked relief of symptoms jb4 03:54 Drug: Zofran (Ondansetron) 4 mg Route: IVP; Site: left forearm; jb4 04:30 Follow up: Response: No adverse reaction; Marked relief of symptoms jb4 04:08 Drug: Cefepime 2 grams Route: IVPB; Rate: 200 ml/hr; Infused Over: 30 mins; Site: left jb4 forearm; 04:38 Follow up: Response: No adverse reaction; IV Status: Completed infusion; IV Intake: jb4 100ml 05:10 Drug: vancoMYCIN 15 mg/kg Route: IVPB; Site: left forearm; jb4 05:34 Follow up: Response: No adverse reaction; IV Status: Infusion continued upon admission jb4 Intake: 04:38 IV: 100ml; Total: 100ml. jb4 Outcome: 03:55 Decision to Hospitalize by Provider. rt 05:33 Admitted to Med/surg accompanied by tech, via wheelchair, room 211, with chart, Report jb4 called to MOSES Antunez 05:33 Condition: stable 05:33 Discharge instructions given to patient, family, Instructed on the need for admit, Demonstrated understanding of instructions. 05:48 Patient left the ED. jb4 Signatures: Mo Mehta, RN RN jb4 Romero Casas Jennifer jj6 Roland Aguayo RN RN 3 Saad Fierro MD MD rt Corrections: (The following items were deleted from the chart) 02:39 02:36 Home Meds: lisinopril-hydrochlorothiazide Oral; 3 02:39 02:36 PSHx: Gastro nuro stimulator; 3 3
[2022-07-07 03:59] LABS: Absolute Lymphocytes (CBC) 2.1 K/uL (0.7-4.9); Hematocrit 36.4 % (39.6-49.0); Lymphocytes % 21.6 % (15.3-44.8); MCV 89.6 fL (80-100); MPV 7.7 fL (7.6-11.3); RBC Red Blood Cell Count 4.06 M/uL (4.33-5.43)
[2022-07-07] MEDS ORDERED: NA CHLORIDE 0.9% 100 ML ONE (04:01)
[2022-07-07] MEDS ORDERED: CEFEPIME 2 GM VIAL ONE (04:01)
[2022-07-07 04:08] LABS: Albumin 3.5 g/dL (3.4-5.0); Bilirubin Total 0.2 mg/dL (0.2-1.0); C-Reactive Protein 56.9 mg/L (<3.00); Potassium 3.8 mmol/L (3.5-5.1); Protein, Total 8.9 g/dL (6.4-8.2)
--- NOTE | 2022-07-07 04:14 | P.HP ---
Certification for Inpatient Patient admitted to: Inpatient With expected LOS: >2 Midnights Patient will require the following post-hospital care: None Practitioner: I am a practitioner with admitting privileges, knowledge of patient current condition, hospital course, and medical plan of care. Services: Services provided to patient in accordance with Admission requirements found in Title 42 Section 412.3 of the Code of Federal Regulations Patient History Date of Service: 07/07/22 Reason for admission: Osteomyelitis History of Present Illness: 41-year-old male with history of insulin-dependent diabetes, hypertension, hyperlipidemia presents to the emergency department with concern of infection of his right foot. He reports swelling, pain using in his right foot the past 2 to 3 days as well as chills. He also noted that his wound is increasing in depth and last time he was probing it he felt bone. He was evaluated in the emergency department the x-ray of his foot showed suspected osteomyelitis. Patient with multiple previous episodes of cellulitis, osteomyelitis requiring debridement/amputations. He was started on vancomycin/cefepime in ED, will admit for further evaluation. Allergies acetaminophen [From [place]] Allergy (Verified 09/16/21 11:30) Hives hydrocodone [From [place]] Allergy (Verified 09/16/21 11:30) Hives tramadol Allergy (Verified 09/16/21 11:30) Hives metoclopramide [From Reglan] Adverse Reaction (Intermediate, Verified 02/11/21 14:08) involuntary spasms clonidine Adverse Reaction (Verified 02/11/21 14:08) severe anxiety prochlorperazine [From Compazine] Adverse Reaction (Verified 02/11/21 14:08) severe anxiety Home Medications: Insulin Aspart [Novolog Penfill] 30 unit SQ AC 01/24/21 Nortriptyline HCl [Pamelor] 50 mg PO BEDTIME 01/24/21 Zolpidem Tartrate 10 mg PO BEDTIME 01/24/21 Famotidine 20 mg PO BEDTIME 09/15/21 Simvastatin 5 mg PO DAILY 09/15/21 Insulin Glargine,Hum.rec.anlog [Lantus] 50 unit SQ BEDTIME 12/23/21 Codeine/APAP [Tylenol W/Codeine #3 tab] 1 tab PO Q6HP PRN #30 tab 12/24/21 Minocycline HCl 100 mg PO BID 10 Days #20 cap 12/24/21 Smz./Tmp. [Bactrim Ds 800 MG/160 MG] 1 tab PO BID #20 tab 12/24/21 - Past Medical/Surgical History Diabetic: Yes -: T1DM -: gastroparesis -: neuropathy -: HLD -: HTN -: Osteomyelitis -: R foot diabetic ulcer debridement -: cholecystectomy -: gastroneuro stimulator implant -: multiple vascular procedures on R leg ,amputation of three toes Psychosocial/ Personal History: Patient is . 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 - Family History Father -: Diabetes Mother -: Hypertension, Diabetes, Cancer Notes: [place] Brother -: Diabetes Sister -: Diabetes - Social History Smoking Status: Never smoker Alcohol use: No CD- Drugs: No Caffeine use: Yes Place of Residence: Home Review of Systems 10-point ROS is otherwise unremarkable General: Chills Musculoskeletal: Foot Pain Physical Examination - Physical Exam General: Alert, In no apparent distress, Oriented x3 HEENT: Atraumatic, PERRLA, Mucous membr. moist/pink, EOMI, Sclerae nonicteric Neck: Supple, 2+ carotid pulse no bruit, No LAD, Without JVD or thyroid abnormality Respiratory: Clear to auscultation bilaterally, Normal air movement Cardiovascular: Regular rate/rhythm, Normal S1 S2 Capillary refill: <2 Seconds Gastrointestinal: Normal bowel sounds, No tenderness Musculoskeletal: No tenderness Integumentary: No rashes, Diabetic ulcer (Right foot, purulent drainage present) Neurological: Normal speech, Normal strength at 5/5 x4 extr, Normal tone, Normal affect - Studies Laboratory Data (last 24 hrs) 07/07/22 03:32: Sodium 138, Potassium 3.8, BUN 26 H, Creatinine 1.02, Glucose 207 H, Total Bilirubin 0.2, AST 29, ALT 67 H, Alkaline Phosphatase 112 07/07/22 03:32: WBC 9.60, Hgb 12.1 L, Hct 36.4 L, Plt Count 467 H Assessment and Plan - Plan Assessment: Osteomyelitis/diabetic foot wound the right foot Diabetes mellitus type 1 Hypertension hyperlipidemia Plan: Osteomyelitis/diabetic foot wound the right foot Blood cultures obtained in ED, given vancomycin/cefepime. X-ray concerning for osteomyelitis. N.p.o., surgical consult ordered. MRI ordered for today. Diabetes mellitus type 1 Patient's current regimen is Lantus 50 units twice daily, NovoLog 30 units 3 times daily before meals. Continue with aggressive sliding scale as patient will be n.p.o. for the time being, continue home regimen when appropriate. Hypertension hyperlipidemia Continue home medications as appropriate. DVT PPX: SCD Code status:full Discharge Plan: Home Plan to discharge in: 72 Hours - Advance Directives Does patient have a Living Will: No Does patient have a Durable POA for Healthcare: No - Code Status/Comfort Care Code Status Assessed: Yes (Full code) Critical Care: No Time Spent Managing Pts Care (In Minutes): 70
[2022-07-07] MEDS ORDERED: VANCOMYCIN 1 GM/VIAL ONE (04:15)
[2022-07-07] MEDS ORDERED: VANCOMYCIN 500 MG/VIAL ONE (04:16)
[2022-07-07] MEDS ORDERED: NA CHLORIDE 0.9% 500 ML ONE (04:16)
[2022-07-07 04:56] LABS: SARS-CoV-2 Antigen Rapid Res Negative (Negative)
[2022-07-07] MEDS ORDERED: VANCOMYCIN 1 GM in NA CHLORIDE 0.9% 250 ML IVPB SCH (05:42)
[2022-07-07 05:56] VITALS: BMI 26.4
[2022-07-07] MEDS: MORPHINE 2 MG/ML SYR IV PRN ×2 (06:25→10:00)
[2022-07-07] MEDS: INSULIN -REGULAR HUMAN 50 UNIT/0.5 ML ML SQ SCH ×4 (07:30→20:55)
[2022-07-07] MEDS ORDERED: cloNIDine HCL 0.1 MG TAB PO ONE (08:07)
[2022-07-07] MEDS ORDERED: HYDRALAZINE HCL 20 MG/ML VIAL IV ONE (08:07)
[2022-07-07] MEDS: CEFEPIME 1 GM in NA CHLORIDE 0.9% 100 ML IV SCH ×2 (09:59→20:49)
[2022-07-07] MEDS ORDERED: HYDROMORPHONE HCL 0.5 MG/0.5 ML INJ IV ONE (15:27)
[2022-07-07] MEDS ORDERED: VANCOMYCIN 1.75 GM in NA CHLORIDE 0.9% 500 ML IVPB SCH (16:30)
[2022-07-07] MEDS: VANCOMYCIN 1.75 GM in NA CHLORIDE 0.9% 500 ML IVPB SCH (17:04)
--- NOTE | 2022-07-07 20:36 | RAD REPORT ---
EXAM DESCRIPTION: RAD - Foot Right 3 View - 07/07/2022 2:56 am CLINICAL HISTORY: The patient is 41 years old and is Male; PAIN [facility] MAIN TECHNIQUE: Frontal, lateral and oblique views of the right foot. COMPARISON: 12/23/2021 right foot radiographs FINDINGS: BONES/JOINTS: Questionable interval erosion of the right fourth metatarsal head, with n ew comminuted fracture of the right second metatarsal head. Redemonstrated post amputation of the right second through fourth digits. Redemonstrated dystrophic changes of the right great toe, particularly about the metatarsoph alangeal joint. Relative osteopenic appearance of the bones, secondary to disuse versus generalized osteopen ia. No dislocation. No additional acute osseous abnormality. SOFT TISSUES: No radiopaque foreign body. No obvious new soft tissue defect or subcutaneous e mphysema is identified. VASCULATURE: Vascular calcifications. IMPRESSION: 1. Questionable interval erosion of the right fourth metatarsal head, with new comminu ghazala fracture of the right second metatarsal head. 2. No additional acute osseous abnormality. 3. No obvious new soft tissue defect or subcutaneous emphysema is identified. 4. Relative osteopenic appearance of the bones, secondary to disuse versus generalized osteopenia. Of note, MRI is the most sensitive imaging evaluation for osteomyelitis and for evaluation of fractur es in osteopenic patients. Consider further evaluation by MRI if there is clinical suspicion for oste omyelitis or additional acute osseous injury of the right foot. Electronically signed by: Bc Mcallister MD 07/07/2022 3:19 AM TOLL SERVICE OBSERVER Due to temporary technical issues with the PACS/Fluency reporting system, reports are being signed by the in house radiologists without review as a courtesy to insure prompt reporting. The interpreting radiologist is fully responsible for the content of the report.
[2022-07-07] MEDS: ONDANSETRON 4 MG/2 ML VIAL IV PRN (20:49)
[2022-07-07] MEDS: HYDROMORPHONE HCL 0.5 MG/0.5 ML INJ IV PRN (20:49)
[2022-07-08] MEDS: HYDROMORPHONE HCL 0.5 MG/0.5 ML INJ IV PRN ×6 (00:33→17:29)
[2022-07-08 03:40] LABS: Absolute Lymphocytes (CBC) 1.6 K/uL (0.7-4.9); Hematocrit 36.6 % (39.6-49.0); Lymphocytes % 20.6 % (15.3-44.8); MCV 88.6 fL (80-100); MPV 7.7 fL (7.6-11.3); RBC Red Blood Cell Count 4.13 M/uL (4.33-5.43)
[2022-07-08 03:55] LABS: Potassium 3.9 mmol/L (3.5-5.1)
[2022-07-08] MEDS: VANCOMYCIN 1.75 GM in NA CHLORIDE 0.9% 500 ML IVPB SCH (04:25)
[2022-07-08] MEDS: PROMETHAZINE 25 MG TABLET PO PRN ×3 (04:31→17:29)
[2022-07-08] MEDS: INSULIN -REGULAR HUMAN 50 UNIT/0.5 ML ML SQ SCH ×4 (08:16→21:26)
[2022-07-08] MEDS: CEFEPIME 1 GM in NA CHLORIDE 0.9% 100 ML IV SCH ×2 (08:16→21:00)
[2022-07-08] MEDS: ONDANSETRON 4 MG/2 ML VIAL IV PRN ×2 (10:22→14:55)
--- NOTE | 2022-07-08 14:09 | RAD REPORT ---
EXAM DESCRIPTION: NM - Bone Imaging Three Phase - 07/08/2022 1:52 pm CLINICAL HISTORY: Osteomyelitis foot COMPARISON: Right foot radiographs 07/07/2022 TECHNIQUE: The patient was administered approximately 27.5 mCi Tc 99m MDP. Anterior dynamic flow johan loli images, planar anterior and posterior blood pool images, and planar anterior, posterior, and obli que images of bilateral feet were obtained. FINDINGS: Increased tracer uptake in the region of the metatarsal heads probably at the second or th ird metatarsal, of the right foot, present on the dynamic flow images, and persisting on the blood po ol and delayed images. Photopenia in the region of the second through fourth right digits, compatible with sequelae of amputation. No abnormal tracer uptake along the right ankle for left foot. IMPRESSION: Abnormal tracer uptake on triphasic bone imaging within the right forefoot, concerning f or ongoing osteomyelitis when correlated with the recent radiograph findings.
[2022-07-08] MEDS: COLLAGENASE 30 GM OINTMENT TOP SCH (17:30)
[2022-07-08] MEDS: VANCOMYCIN 2 GM in NA CHLORIDE 0.9% 500 ML IVPB SCH (17:38)
[2022-07-08] MEDS ORDERED: HYDROMORPHONE HCL 2 MG/ML inj IM ONE (20:47)
[2022-07-09] MEDS: ONDANSETRON 4 MG/2 ML VIAL IV PRN ×4 (00:01→21:48)
[2022-07-09] MEDS: HYDROMORPHONE HCL 0.5 MG/0.5 ML INJ IV PRN ×7 (00:01→17:46)
[2022-07-09 04:16] LABS: Absolute Lymphocytes (CBC) 1.6 K/uL (0.7-4.9); Hematocrit 33.4 % (39.6-49.0); Lymphocytes % 18.5 % (15.3-44.8); MCV 89.9 fL (80-100); MPV 7.5 fL (7.6-11.3); RBC Red Blood Cell Count 3.71 M/uL (4.33-5.43)
[2022-07-09] MEDS: VANCOMYCIN 2 GM in NA CHLORIDE 0.9% 500 ML IVPB SCH ×2 (04:39→17:46)
[2022-07-09 04:40] LABS: Potassium 3.6 mmol/L (3.5-5.1)
--- NOTE | 2022-07-09 06:10 | P.PN ---
Date of Service: 07/08/22 Subjective Pt continues with N/V. blood pressure blood sugars are stable. Arranging for PICC line for IV antibiotics as bone scan shows osteomyelitis. Physical Examination - Physical Exam General: Alert, In no apparent distress, Oriented x3 Respiratory: Clear to auscultation bilaterally, Normal air movement Cardiovascular: Regular rate/rhythm, Normal S1 S2 Gastrointestinal: Normal bowel sounds, No tenderness Musculoskeletal: No tenderness Integumentary: Diabetic ulcer (Right foot, purulent drainage present) Neurological: No focal deficits Assessment and Plan - Assessment Assessment: Osteomyelitis/diabetic foot wound the right foot Diabetes mellitus type 1 Hypertension hyperlipidemia - Plan Plan: 1. Continue with IV antibiotic 2. Continue with local wound care 3. Wound care consultation/surgical consultation 4. Gentle IV hydration 5. Monitor CBC 6. Strict blood sugar monitoring 7. Pain control 8. GI and DVT prophylaxis
[2022-07-09] MEDS ORDERED: FAMOTIDINE 20 MG TAB PO PRN (07:00)
[2022-07-09] MEDS: INSULIN LISPRO 100 UNIT/1 ML SQ SCH ×3 (07:30→16:30)
[2022-07-09] MEDS: INSULIN -REGULAR HUMAN 50 UNIT/0.5 ML ML SQ SCH ×4 (07:30→21:03)
[2022-07-09] MEDS ORDERED: CEFEPIME 1 GM/VIAL ONE (08:16)
[2022-07-09] MEDS ORDERED: NA CHLORIDE 0.9% 100 ML ONE (08:18)
[2022-07-09] MEDS: CEFEPIME 1 GM in NA CHLORIDE 0.9% 100 ML IV SCH ×2 (09:00→21:00)
[2022-07-09] MEDS: COLLAGENASE 30 GM OINTMENT TOP SCH (09:00)
--- NOTE | 2022-07-09 13:30 | P.CNS ---
Date of Consult: 07/09/22 Chief Complaint: Osteomyelitis History of Present Illness: 41-year-old male with history of insulin-dependent diabetes, hypertension, hyperlipidemia, and gastroparesis with stimulator in place presents to the emergency department with concern of infection of his right foot. He reports swelling, pain using in his right foot the past 2 to 3 days as well as chills. He also noted that his wound is increasing in depth and last time he was probing it he felt bone. He was evaluated in the emergency department the x-ray of his foot showed suspected osteomyelitis. Patient with multiple previous episodes of cellulitis, osteomyelitis requiring debridement/amputations. He was started on vancomycin/cefepime in ED, will admit for further evaluation. ID has been consulted for IV antibiotics recommendations and management for right foot cellulitis and possible osteomyelitis Allergies acetaminophen [From [place]] Allergy (Verified 09/16/21 11:30) Hives hydrocodone [From [place]] Allergy (Verified 09/16/21 11:30) Hives tramadol Allergy (Verified 09/16/21 11:30) Hives metoclopramide [From Reglan] Adverse Reaction (Intermediate, Verified 02/11/21 14:08) involuntary spasms clonidine Adverse Reaction (Verified 02/11/21 14:08) severe anxiety prochlorperazine [From Compazine] Adverse Reaction (Verified 02/11/21 14:08) severe anxiety Home Medications: Insulin Aspart [Novolog Penfill] 30 unit SQ AC 01/24/21 Nortriptyline HCl [Pamelor] 50 mg PO BEDTIME 01/24/21 Zolpidem Tartrate 10 mg PO BEDTIME 01/24/21 Famotidine 20 mg PO PRN PRN 09/15/21 Insulin Glargine,Hum.rec.anlog [Lantus] 50 unit SQ BID 12/23/21 - Past Medical/Surgical History Diabetic: Yes -: T1DM -: gastroparesis -: neuropathy -: HLD -: HTN -: Osteomyelitis -: R foot diabetic ulcer debridement -: cholecystectomy -: gastroneuro stimulator implant -: multiple vascular procedures on R leg , -: amputation of 2nd, 3rd, 4th digit right foot jan 2022 Psychosocial/ Personal History: Patient is . 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 - Family History Father Medical History: Diabetes Mother Medical History: Hypertension, Diabetes, Cancer Notes: [place] Brother Medical History: Diabetes Sister Medical History: Diabetes - Social History Alcohol use: No CD- Drugs: Yes Caffeine use: No Place of Residence: Home Review of Systems 10-point ROS is otherwise unremarkable Gastrointestinal: Nausea, Vomiting, Other (gastroparesis with stimulator in place), As per HPI Musculoskeletal: Other (Right toes (2-4th) amputation), As per HPI Integumentary: As per HPI Physical Examination Temp Pulse Resp BP Pulse Ox 98.5 F 112 H 16 197/91 H 97 07/09/22 12:00 07/09/22 12:00 07/09/22 12:20 07/09/22 12:00 07/09/22 12:20 General: Alert, Oriented x3, Mild distress (right foot pain and vomiting) Respiratory: Clear to auscultation bilaterally Cardiovascular: No edema, Normal S1 S2 Gastrointestinal: Hypoactive (gastroparesis with stimulator in place), Other (nausea and vomiting) Musculoskeletal: Other (right foot ulcer with possible osteomyelitis; Right toes (2-4th) amputation) Integumentary: Tenderness/swelling (right foot ulcer with possible os teomyelitis; wound clean with mild purulent discharge seen in dressing), Diabetic ulcer (right foot ulcer with possible osteomyelitis) Neurological: Other (neuropathy) active medications Collagenase (Collagenase 30 Gm Ointment) 1 appl TOP DAILY [facility] Last Admin: 07/09/22 09:00 Dose: Not Given Famotidine (Famotidine 20 Mg Tab) 20 mg PO DAILYPRN PRN; Protocol PRN Reason: INDIGESTION Hydromorphone HCl (Hydromorphone Hcl 0.5 Mg/0.5 Ml Inj) 0.5 mg IV Q3H PRN PRN Reason: Pain scale 5-7 (Moderate) Last Admin: 07/09/22 11:50 Dose: 0.5 mg Cefepime HCl 1 gm/ Sodium (Chloride) 100 mls @ 200 mls/hr IV Q12HR [facility]; Protocol Last Admin: 07/09/22 09:00 Dose: 100 mls Vancomycin HCl 2 gm/ Sodium (Chloride) 500 mls @ 250 mls/hr IVPB Q12H [facility] Last Admin: 07/09/22 04:39 Dose: 500 mls Insulin Glargine (Insulin Glargine 100 Unit/Ml) 50 unit SQ BID [facility] Insulin Human Lispro (Insulin Lispro 100 Unit/1 Ml) 30 unit SQ AC [facility] Last Admin: 07/09/22 11:30 Dose: Not Given Insulin Human Regular (Insulin -Regular Human 50 Unit/0.5 Ml Ml) 0 unit SQ ACHS [facility]; Protocol Last Admin: 07/09/22 11:30 Dose: 5 unit Nortriptyline HCl (Nortriptyline Hcl 25 Mg Cap) 50 mg PO BEDTIME [facility] Ondansetron HCl (Ondansetron 4 Mg/2 Ml Vial) 4 mg IV Q6HP PRN PRN Reason: NAUSEA / VOMITING Last Admin: 07/09/22 11:50 Dose: 4 mg Promethazine HCl (Promethazine 25 Mg Tablet) 25 mg PO Q6H PRN PRN Reason: NAUSEA / VOMITING Last Admin: 07/08/22 17:29 Dose: 25 mg Sodium Chloride (Flush Normal Saline 10 Ml) 10 ml IV BID [facility] Last Admin: 07/09/22 09:07 Dose: 10 ml Zolpidem Tartrate (Zolpidem Tartrate 10 Mg Tablet) 10 mg PO BEDTIME [facility] Microbiology 07/07/22 03:52 Blood - Blood Aerobic Blood Culture - Preliminary No growth in 24 hours. 07/07/22 03:52 Blood - Blood Anaerobic Blood Culture - Preliminary No growth in 24 hours. 07/07/22 03:32 Blood - Blood Aerobic Blood Culture - Preliminary No growth in 24 hours. 07/07/22 03:32 Blood - Blood Anaerobic Blood Culture - Preliminary No growth in 24 hours. Imagings Data: NM - Bone Imaging Three Phase - 07/08/2022 FINDINGS: Increased tracer uptake in the region of the metatarsal heads probably at the second or third metatarsal, of the right foot, present on the dynamic flow images, and persisting on the blood pool and delayed images. Photopenia in the region of the second through fourth right digits, compatible with sequelae of amputation. No abnormal tracer uptake along the right ankle for left foot. IMPRESSION: Abnormal tracer uptake on triphasic bone imaging within the right forefoot, concerning for ongoing osteomyelitis when correlated with the recent radiograph findings. RAD - Foot Right 3 View - 07/07/2022 IMPRESSION: 1. Questionable interval erosion of the right fourth metatarsal head, with new comminuted fracture of the right second metatarsal head. 2. No additional acute osseous abnormality. 3. No obvious new soft tissue defect or subcutaneous emphysema is identified. 4. Relative osteopenic appearance of the bones, secondary to disuse versus generalized osteopenia. Of note, MRI is the most sensitive imaging evaluation for osteomyelitis and for evaluation of fractures in osteopenic patients. Consider further evaluation by MRI if there is clinical suspicion for osteomyelitis or additional acute osseous injury of the right foot. - Problems (1) Right diabetic foot wound w/ cellulitis Plan: Cultures: - 07/07 BC: Negative - 07/07 Wound right foot: Streptococcus Agalactiae GRP B, Susceptible to Vancomycin, Bactrim, Bpenicillin, and Levofloxacin Antibiotics: - Current on IV Cefepime and Vancomycin (07/07- ) Recommendations: - Continue IV Cefepime and Vancomycin for total of 2 weeks (2) Osteomyelitis of right foot Plan: NM - Bone Imaging Three Phase - 07/08/2022: Abnormal tracer uptake on triphasic bone imaging within the right forefoot, concerning for ongoing osteomyelitis when correlated with the recent radiograph findings Cultures: - 07/07 BC: Negative - 07/07 Wound right foot: Streptococcus Agalactiae GRP B, Susceptible to Vancomycin, Bactrim, Bpenicillin, and Levofloxacin Antibiotics: - Current on IV Cefepime and Vancomycin (07/07- ) Recommendations: - Continue IV Cefepime and Vancomycin for total 6 weeks duration Conclusions/Impression: - Osteomyelitis/diabetic foot wound the right foot: Need total of 6 weeks of IV antibiotics - Diabetes mellitus type 1 - Gastroparesis with gastroneuro stimulator implant - Neuropathy - HLD - HTN - Osteomyelitis - R foot diabetic ulcer debridement - Cholecystectomy - Multiple vascular procedures on R leg ,amputation of three toes (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 Tamez N Thank you Dr. Florence for consultation
[2022-07-09] MEDS ORDERED: INSULIN GLARGINE 100 UNIT/ML SQ SCH (17:00)
[2022-07-09] MEDS: INSULIN GLARGINE 100 UNIT/ML SQ SCH ×2 (20:00→21:04)
[2022-07-09] MEDS ORDERED: FENTANYL CITR 100 MCG/2 ML IV ONE (20:43)
[2022-07-09] MEDS: ZOLPIDEM TARTRATE 10 MG TABLET PO SCH (21:05)
[2022-07-09] MEDS: NORTRIPTYLINE HCL 25 MG CAP PO SCH (21:11)
[2022-07-09 22:48] VITALS: O2SAT 97
[2022-07-10] MEDS: HYDROMORPHONE HCL 0.5 MG/0.5 ML INJ IV PRN ×5 (00:31→12:07)
[2022-07-10] MEDS: PROMETHAZINE 25 MG TABLET PO PRN (00:31)
[2022-07-10 04:02] LABS: Absolute Lymphocytes (CBC) 1.6 K/uL (0.7-4.9); Hematocrit 35.5 % (39.6-49.0); Lymphocytes % 17.7 % (15.3-44.8); MCV 89.7 fL (80-100); MPV 7.6 fL (7.6-11.3); RBC Red Blood Cell Count 3.95 M/uL (4.33-5.43)
[2022-07-10 04:13] LABS: Potassium 3.4 mmol/L (3.5-5.1)
[2022-07-10] MEDS: VANCOMYCIN 2 GM in NA CHLORIDE 0.9% 500 ML IVPB SCH (04:33)
[2022-07-10] MEDS ORDERED: HYDRALAZINE HCL 20 MG/ML VIAL IV PRN (05:09)
[2022-07-10] MEDS: INSULIN LISPRO 100 UNIT/1 ML SQ SCH ×3 (07:30→16:30)
[2022-07-10] MEDS: INSULIN GLARGINE 100 UNIT/ML SQ SCH ×2 (08:00→20:00)
--- NOTE | 2022-07-10 08:27 | P.PN ---
Subjective Date of Service: 07/10/22 Chief Complaint: Osteomyelitis Patient lying in bed grimacing due to malfunction of gastro-stimulator. Family members at the bedside. No signs of cardiopulmonary distress Physical Examination - Vital Signs Temperature: 99.7 F Blood Pressure: 179/87 Pulse: 101 Respirations: 18 Pulse Ox (%): 91 - Physical Exam General: Alert, Oriented x3, Mild distress (gastro-stimulator malfunction: stomach discomfort) Respiratory: Clear to auscultation bilaterally Cardiovascular: No edema, Normal S1 S2 Gastrointestinal: Hypoactive, Other (gastroparesis with stimulator in place; nausea) Musculoskeletal: Other (right foot ulcer with possible osteomyelitis; Right toes (2-4th) amputation) Integumentary: Diabetic ulcer (right foot ulcer with possible osteomyelitis) Neurological: Normal speech, Normal tone, Sensation intact, Normal affect, Other (neuropathy) - Studies active medications Collagenase (Collagenase 30 Gm Ointment) 1 appl TOP DAILY [facility] Last Admin: 07/09/22 09:00 Dose: Not Given Famotidine (Famotidine 20 Mg Tab) 20 mg PO DAILYPRN PRN; Protocol PRN Reason: INDIGESTION Hydralazine HCl (Hydralazine Hcl 20 Mg/Ml Vial) 10 mg IV Q6HP PRN PRN Reason: Titrate to SBP (MUST DEFINE) Last Admin: 07/10/22 05:42 Dose: 10 mg Hydromorphone HCl (Hydromorphone Hcl 0.5 Mg/0.5 Ml Inj) 0.5 mg IV Q3H PRN PRN Reason: Pain scale 5-7 (Moderate) Last Admin: 07/10/22 06:14 Dose: 0.5 mg Cefepime HCl 1 gm/ Sodium (Chloride) 100 mls @ 200 mls/hr IV Q12HR [facility]; Protocol Last Admin: 07/09/22 21:00 Dose: 100 mls Vancomycin HCl 2 gm/ Sodium (Chloride) 500 mls @ 250 mls/hr IVPB Q12H [facility] Last Admin: 07/10/22 04:33 Dose: 500 mls Insulin Glargine (Insulin Glargine 100 Unit/Ml) 50 unit SQ 0800,2000 [facility] Last Admin: 07/09/22 20:00 Dose: Not Given Insulin Human Lispro (Insulin Lispro 100 Unit/1 Ml) 30 unit SQ [facility] Last Admin: 07/09/22 16:30 Dose: Not Given Insulin Human Regular (Insulin -Regular Human 50 Unit/0.5 Ml Ml) 0 unit SQ ACHS [facility]; Protocol Last Admin: 07/09/22 21:03 Dose: 5 unit Nortriptyline HCl (Nortriptyline Hcl 25 Mg Cap) 50 mg PO BEDTIME [facility] Last Admin: 07/09/22 21:11 Dose: 50 mg Ondansetron HCl (Ondansetron 4 Mg/2 Ml Vial) 4 mg IV Q6HP PRN PRN Reason: NAUSEA / VOMITING Last Admin: 07/09/22 21:48 Dose: 4 mg Promethazine HCl (Promethazine 25 Mg Tablet) 25 mg PO Q6H PRN PRN Reason: NAUSEA / VOMITING Last Admin: 07/10/22 00:31 Dose: 25 mg Sodium Chloride (Flush Normal Saline 10 Ml) 10 ml IV BID [facility] Last Admin: 07/09/22 21:00 Dose: 10 ml Zolpidem Tartrate (Zolpidem Tartrate 10 Mg Tablet) 10 mg PO BEDTIME [facility] Last Admin: 07/09/22 21:05 Dose: 10 mg Microbiology Data (last 24 hrs): Microbiology 07/07/22 03:52 Blood - Blood Aerobic Blood Culture - Preliminary No growth in 24 hours. 07/07/22 03:52 Blood - Blood Anaerobic Blood Culture - Preliminary No growth in 24 hours. 07/07/22 03:32 Blood - Blood Aerobic Blood Culture - Preliminary No growth in 24 hours. 07/07/22 03:32 Blood - Blood Anaerobic Blood Culture - Preliminary No growth in 24 hours. Assessment And Plan - Current Problems (Diagnosis) (1) Right diabetic foot wound w/ cellulitis Plan: Cultures: - 07/07 BC: Negative - 07/07 Wound right foot: Streptococcus Agalactiae GRP B, Susceptible to Vancomycin, Bactrim, penicillin, and Levofloxacin Antibiotics: - Current on IV Cefepime and Vancomycin (07/07- ) Recommendations: - STOP Cefepime and Vancomycin - SWITCH to IV Ampicillin / Sulbactam for total of 6 weeks (2) Osteomyelitis of right foot Plan: NM - Bone Imaging Three Phase - 07/08/2022: Abnormal tracer uptake on triphasic bone imaging within the right forefoot, concerning for ongoing osteomyelitis when correlated with the recent radiograph findings Cultures: - 07/07 BC: Negative - 07/07 Wound right foot: Streptococcus Agalactiae GRP B, Susceptible to Vancomycin, Bactrim, Penicillin, and Levofloxacin Antibiotics: - Current on IV Cefepime and Vancomycin (07/07- ) Recommendations: - STOP Cefepime and Vancomycin - SWITCH to IV Ampicillin / Sulbactam for total of 6 weeks - Plan - Osteomyelitis/diabetic foot wound the right foot: Need total of 6 weeks of IV antibiotics - Diabetes mellitus type 1 - Gastroparesis with gastroneuro stimulator implant - Neuropathy - HLD - HTN - Osteomyelitis - R foot diabetic ulcer debridement - Cholecystectomy - Multiple vascular procedures on R leg ,amputation of three toes (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 Tamez, N
[2022-07-10] MEDS ORDERED: CEFEPIME 1 GM/VIAL ONE (08:51)
[2022-07-10] MEDS ORDERED: NA CHLORIDE 0.9% 100 ML ONE (08:52)
[2022-07-10] MEDS: CEFEPIME 1 GM in NA CHLORIDE 0.9% 100 ML IV SCH (09:00)
[2022-07-10] MEDS: INSULIN -REGULAR HUMAN 50 UNIT/0.5 ML ML SQ SCH ×4 (09:03→20:47)
[2022-07-10] MEDS: COLLAGENASE 30 GM OINTMENT TOP SCH (09:03)
--- NOTE | 2022-07-10 11:27 | RAD REPORT ---
EXAM DESCRIPTION: RAD - Chest Single View - 07/10/2022 11:15 am CLINICAL HISTORY: Device placement PICC line placement IMPRESSION: PICC line with its tip in the superior vena cava
[2022-07-10] MEDS ORDERED: LORAZEPAM 0.5 MG TABLET PO PRN (14:59)
[2022-07-10] MEDS: HYDROMORPHONE HCL 1 MG/ML INJ IV PRN ×3 (15:09→21:15)
[2022-07-10] MEDS: ONDANSETRON 4 MG/2 ML VIAL IV PRN (15:09)
[2022-07-10] MEDS: AMPICILLIN/SULBACT 3 GM in NA CHLORIDE 0.9% 100 ML IVPB SCH (18:12)
[2022-07-10] MEDS: ZOLPIDEM TARTRATE 10 MG TABLET PO SCH (21:20)
[2022-07-10] MEDS: clonazePAM 0.5 MG TAB PO SCH (21:20)
[2022-07-10] MEDS: NORTRIPTYLINE HCL 25 MG CAP PO SCH (21:20)
--- NOTE | 2022-07-11 00:02 | P.PN ---
Date of Service: 07/09/22 Subjective Possible surgery in the AM. Physical Examination - Physical Exam General: Alert, In no apparent distress, Oriented x3 Respiratory: Clear to auscultation bilaterally, Normal air movement Cardiovascular: Regular rate/rhythm, Normal S1 S2 Gastrointestinal: Normal bowel sounds, No tenderness Musculoskeletal: No tenderness Integumentary: Diabetic ulcer (Right foot, purulent drainage present) Neurological: No focal deficits Assessment and Plan - Assessment Assessment: Osteomyelitis/diabetic foot wound the right foot Diabetes mellitus type 1 Hypertension hyperlipidemia - Plan Plan: 1. Continue with IV antibiotic 2. Continue with local wound care 3. Wound care consultation/surgical consultation 4. Gentle IV hydration 5. Monitor CBC 6. Strict blood sugar monitoring 7. Pain control 8. GI and DVT prophylaxis
--- NOTE | 2022-07-11 00:07 | P.PN ---
Date of Service: 07/10/22 Subjective Bone scan positive; osteomyelitis-6 weeks of abx; still with abd pain from gastroparesis Physical Examination - Physical Exam General: Alert, In no apparent distress, Oriented x3; cries for pain medications Respiratory: Clear to auscultation bilaterally, Normal air movement Cardiovascular: Regular rate/rhythm, Normal S1 S2 Gastrointestinal: Normal bowel sounds, No tenderness Musculoskeletal: No tenderness Integumentary: Diabetic ulcer (Right foot, purulent drainage present) Neurological: No focal deficits Assessment and Plan - Assessment Assessment: Osteomyelitis/diabetic foot wound the right foot Diabetes mellitus type 1 Hypertension hyperlipidemia - Plan Plan: 1. Continue with IV antibiotic 2. Continue with local wound care 3. Wound care consultation/surgical consultation 4. Gentle IV hydration 5. Monitor CBC 6. Strict blood sugar monitoring 7. Pain control 8. GI and DVT prophylaxis
[2022-07-11] MEDS: HYDROMORPHONE HCL 1 MG/ML INJ IV PRN ×6 (00:28→16:54)
[2022-07-11] MEDS: AMPICILLIN/SULBACT 3 GM in NA CHLORIDE 0.9% 100 ML IVPB SCH ×3 (00:29→13:15)
[2022-07-11 05:49] LABS: Absolute Lymphocytes (CBC) 2.2 K/uL (0.7-4.9); Hematocrit 34.8 % (39.6-49.0); Lymphocytes % 25.7 % (15.3-44.8); MCV 89.4 fL (80-100); MPV 7.4 fL (7.6-11.3); RBC Red Blood Cell Count 3.89 M/uL (4.33-5.43)
[2022-07-11 05:52] LABS: Albumin 2.8 g/dL (3.4-5.0); Bilirubin Total 0.4 mg/dL (0.2-1.0); Magnesium 2.3 mg/dL (1.6-2.4); Protein, Total 7.5 g/dL (6.4-8.2)
[2022-07-11] MEDS: INSULIN -REGULAR HUMAN 50 UNIT/0.5 ML ML SQ SCH ×3 (07:30→16:53)
[2022-07-11] MEDS: INSULIN LISPRO 100 UNIT/1 ML SQ SCH ×2 (07:30→11:30)
[2022-07-11] MEDS: INSULIN GLARGINE 100 UNIT/ML SQ SCH (08:00)
[2022-07-11] MEDS: clonazePAM 0.5 MG TAB PO SCH ×2 (09:00→14:00)
[2022-07-11] MEDS: ONDANSETRON 4 MG/2 ML VIAL IV PRN (09:26)
[2022-07-11] MEDS ORDERED: Levofloxacin 750mg IV 750 MG/150 ML BAG IV ONE (14:27)
--- NOTE | 2022-07-11 15:41 | PN ---
Subjective: The patient lying in bed. No new acute events. Feels slightly better today. Objective: Vital signs: Reviewed. Lungs: Basal crackles. Heart: S1, S2. Regular. Abdomen: Soft, nontender. Bowel sounds present. Extremity: Right foot wound noted. Laboratory Data: Reviewed. Assessment And Plan: Right foot cultures growing Streptococcus agalactiae. Currently on Unasyn for osteomyelitis for 6 weeks. Anemia of chronic disease, moderate protein-calorie malnourishment. Bloo d cultures negative. The patient is to continue antibiotic for diabetic foot ulcer and diabetic neur opathy. We will continue to monitor the patient for signs of infection. NF/MODL Voice ID: [id number] Report ID: [id number]
[2022-07-11 16:17] VITALS: BP 133/71; TEMP 97.8
== END 2022-07-11 18:45 | disposition home health service (06) | DRG 638 ==
LOC: ER 01:47 → ERHOLD 04:03 → 2ND 05:37
PROVIDERS: ADMIT Hospitalist; ATTEND Hospitalist
PROC: 02HV33Z Insertion of Infusion Device into Superior Vena Cava, Percutaneous Approach (ICD-10-PCS; principal; 2022-07-10)
DX: E10.69 Type 1 diabetes mellitus with other specified complication (principal); E44.0 Moderate protein-calorie malnutrition; L03.115 Cellulitis of right lower limb; M86.8X7 Other osteomyelitis, ankle and foot; E10.628 Type 1 diabetes mellitus with other skin complications; E10.43 Type 1 diabetes mellitus with diabetic autonomic (poly)neuropathy; E10.621 Type 1 diabetes mellitus with foot ulcer; L97.519 Non-pressure chronic ulcer of other part of right foot with unspecified severity; K31.84 Gastroparesis; I10 Essential (primary) hypertension; D63.8 Anemia in other chronic diseases classified elsewhere; E78.5 Hyperlipidemia, unspecified; B95.1 Streptococcus, group B, as the cause of diseases classified elsewhere; Z88.5 Allergy status to narcotic agent; Z88.8 Allergy status to other drugs, medicaments and biological substances; Z79.4 Long term (current) use of insulin; Z90.49 Acquired absence of other specified parts of digestive tract; Z68.26 Body mass index [BMI] 26.0-26.9, adult; Z79.899 Other long term (current) drug therapy; Z89.421 Acquired absence of other right toe(s); Z20.822 Contact with and (suspected) exposure to COVID-19
CPT/HCPCS: 36415; 71045; 78315; 80048; 80053; 80202; 82947; 83036; 83605; 83735; 84145; 85025; 86140; 87040; 87070; 87077; 87186; 87205; 87811; 96365; 96367; 96375; 99285; A9503; J0295; J0360; J0692; J1170; J1815; J2270; J2405; J3010; J3370; J3590; J7040; Q0169

== ENCOUNTER 2023-01-21 20:49 | Inpatient (IN) | payer OTHER ==
--- OUTSIDE RECORDS SUMMARY | 2023-01-21 21:03 | XMS REPORT | Continuity of Care Document ---
:[address] [facility] t Address [address] [place] [address] [address] [place] [address] Care Team Providers Name Role Phone August Primary Care Physician Unavailable Sandra Carrasco MD Attending Clinician SANDRA CARRASCO Attending Clinician Unavailable Doctor Unassigned, [place] Attending Clinician Unavailable TYREE JEFFERS Attending Clinician Unavailable Aide Cai Attending Clinician TONI CRAMER Attending Clinician Unavailable DOMINIQUE OCHOA Attending Clinician Unavailable AIDE CHARLES Attending Clinician Unavailable VELIA COLLADO Attending Clinician Unavailable ROLAND ESCALANTE Attending Clinician Unavailable Yaquelin Smith MD Attending Clinician Alli Garcia Attending Clinician ALLI RANDHAWA Attending Clinician Unavailable KNOW, DOES_NOT Attending Clinician Unavailable Wilmer William Attending Clinician Unavailable Galindo Chris Admitting Clinician Unavailable Wilmer William Admitting Clinician Unavailable Payers Payer Name Policy Type Policy Number Effective Date Expiration Date S ource [employer]IC [employer]ERCIAL [id number] 2016 00:00:00 MEDICARE-PART B 5 [id number] 2021 00:00:00 Problems Condition Condition Condition Status [...] pain, Disease Active Uni vers bilateral bilateral -24 ity of 00:00: [place] 00 Medical Branch Allergies, Adverse Reactions, Alerts Allergy Allergy Status Severity Reaction(s) Onset Inactive Treating Comm ents Source Name Type Date Date Clinician CLONIDIN DRUG Active Anxiety Univers E INGREDI -24 ity of 00:00: [place] 00 Medical Branch PROCHLOR DRUG Active Anxiety Univers PERAZINE INGREDI -24 ity of 00:00: 00 Medical Branch HYDROCOD DRUG Active Other-Cmnt [...] 00 Medical s Branch prochlor DA Active [place] ITCHING 2020-0 [facility] per[facility] 08[facility]13 [facility] prochlor DA Active [place] 2020-0 [facility] perazine 08-13 [facility] haloperi DA Active U 2020-0 [facility] dol 01-21 [facility] haloperi DA Active U STOMACH ACHE 2020-0 [facility] dol 01-21 [facility] metoclop DA Active U 2020-0 [facility] ramide 11-30 [facility] metoclop DA Active U JERKS AND 2020-0 [facility] SPASMS 11-30 [facility] 00:[facility] clonidin DA Active U 2020-0 [facility] e 05-20 [facility] metoclop DA Active U 2020-0 [facility] r[facility] 05-20 [facility] clonidin DA Active U ANXIETY 2020-0 [facility] 05-20 [facility] 00:00: Region[facility] 00 l [...] clonidin DA Active U ANXIETY 2018-0 [facility] 01-16 [facility] 00:[facility] metoclop DA Active U MUSCLE 2018-0 [facility] ramide SPASMS 01-16 [facility] 00:[facility] clonidin DA Active U 2018-0 [facility] 11-25 [facility] 00:[facility] metoclop DA Active U 2018-0 [facility] ramide 11-25 [facility] 00:[facility] Clonidin Propensi Active Other (See 2017-[address] [facility] to Comments) 4-07 [facility] reaction 00 Center s Metoclop Propensi Active Other (See Muscle [facility] Comments) 07 sp[facility] adverse 00:[facility]: Medical reaction 00 Center s CLONIDIN Allergy Active Other [facility] METOCLOP Allergy Active Other 2016- [facility] 00:[facility]: Medical 00 [place] Social History Social Habit Start Date Stop Date Quantity Comments Source Gender identity [facility] Sexual orientation Univer sity [facility] History [facility] o f Alcohol Frequency [place] M [facility] History [facility] University o f Alcohol Std Drinks [facility] History [facility] o f Alcohol Binge [place] Medic al Branch Exposure to 2022-09-07 2022-09-17 Not sure [facility] SARS-CoV-2 (event) 00:00:00 08:34:00 [facility] Tobacco use and 2022-09-17 2022-09-17 Smokeless Universit y of exposure 00:00:00 00:00:00 tobacco non-user [facility] dical [place] History of Social 2022-03-19 2022-03-19 Univers ity of function 00:00:00 00:00:00 [facility] Alcohol Comment 2021-06-10 2021-06-10 seldomly Universit y of 00:00:00 00:00:00 [facility] Sex Assigned At [address] [facility] [address] [facility] 00:00:00 00:[facility]:00 [facility] Center Smoking Status Start Date Stop Date Source Never smoked tobacco [facility] Medications Ordered Filled Start Stop Current Ordering Indication Dosage Frequency Signature Comments Components Source Medication Medication Date Date Medication? Clinician (SIG) Name Name proMETHazin 2022- No 25mg Take 1 Uni vers e 25 mg 5-03 05-03 tablet by ity of tablet 09:08: 00:00 mouth [place] 17 :00 every 4 Medical (four) Branch hours as needed for Nausea and Vomiting (N/V). proMETHazin 2022- No 25mg Take 1 Uni vers e 25 mg 5-03 05-03 tablet by ity of tablet 09:08: 00:00 mouth [place] 17 :00 every 4 Medical (four) Branch hours as needed for Nausea and Vomiting (N/V). lisinopriL 2022-0 Yes [id number] 20mg Take 1 U nivers 20 mg 5-03 tablet by ity of tablet 00:00: mouth in [place] 00 the Medical morning. Branch proMETHazin 2022-0 Yes [id number] 25mg Take 1 Univers e 25 mg 5-03 tablet by ity of tablet 00:00: mouth [place] 00 every 4 Medical (four) Branch hours as needed for Nausea and Vomiting (N/V). nortriptyli 2022-0 Yes [id number] 50mg Take 1 Univers ne 50 mg 5-03 capsule by ity o f capsule 00:00: mouth at [place] 00 bedtime. Medical Branch zolpidem 10 2022-0 Yes [id number] 10mg Take 1 U nivers mg tablet 5-03 tablet by ity o f 00:00: mouth at [place] 00 bedtime. Medical Branch rosuvastati 2022-0 Yes [id number] 5mg Take 5 mg Univers n 5 mg CpSP 5-03 by mouth ity of 00:00: in the [place] 00 morning. Medical Branch lisinopriL 2022-0 Yes [id number] 20mg Take 1 U nivers 20 mg 5-03 tablet by ity of tablet 00:00: mouth in [place] 00 the Medical morning. Branch proMETHazin 2022-0 Yes [id number] 25mg Take 1 Univers e 25 mg 5-03 tablet by ity of tablet 00:00: mouth [place] 00 every 4 Medical (four) Branch hours as needed for Nausea and Vomiting (N/V). nortriptyli 2022-0 Yes [id number] 50mg Take 1 Univers ne 50 mg 5-03 capsule by ity o f capsule 00:00: mouth at [place] [address] bedtime. Medical Branch zolpidem 10 2022-0 Yes [id number] 10mg Take 1 U nivers mg tablet 5-03 tablet by ity o f 00:00: mouth at [place] 00 bedtime. Medical Branch rosuvastati 2022-0 Yes [id number] 5mg Take 5 mg Univers n 5 mg CpSP 5-03 by mouth ity of 00:00: in the [place] 00 morning. Medical Branch lisinopriL 2022-0 Yes [id number] 20mg Take 1 U nivers 20 mg 5-03 tablet by ity of tablet 00:00: mouth in [place] 00 the Medical morning. Branch proMETHazin 2022-0 Yes [id number] 25mg Take 1 Univers e 25 mg 5-03 tablet by ity of tablet 00:00: mouth [place] 00 every 4 Medical (four) Branch hours as needed for Nausea and Vomiting (N/V). nortriptyli 2022-0 Yes [id number] 50mg Take 1 Univers ne 50 mg 5-03 capsule by ity o f capsule 00:00: mouth at [place] 00 bedtime. Medical Branch zolpidem 10 2022-0 Yes [id number] 10mg Take 1 U nivers mg tablet 5-03 tablet by ity o f 00:00: mouth at [place] [address] bedtime. Medical Branch rosuvastati 2022-0 Yes [id number] 5mg Take 5 mg Univers n 5 mg CpSP 5-03 by mouth ity of 00:00: in the [place] 00 morning. Medical Branch lisinopriL 2022-0 Yes [id number] 20mg Take 1 U nivers 20 mg 5-03 tablet by ity of tablet 00:00: mouth in [place] the Medical morning. Branch proMETHazin 2022-0 Yes [id number] 25mg Take 1 Univers e 25 mg 5-03 tablet by ity of tablet 00:00: mouth [place] 00 every 4 Medical (four) Branch hours as needed for Nausea and Vomiting (N/V). nortriptyli 0 Yes [id number] 50mg Take 1 Univers ne 50 mg 5-03 capsule by ity o f capsule 00:00: mouth at [place] [address] bedtime. Medical Branch zolpidem 10 2022-0 Yes [id number] 10mg Take 1 U nivers mg tablet 5-03 tablet by ity o f 00:00: mouth at [place] [address] bedtime. Medical Branch rosuvastati 2022-0 Yes [id number] 5mg Take 5 mg Univers n 5 mg CpSP 5-03 by mouth ity of 00:00: in the [place] 00 morning. Medical Branch lisinopriL 2022-0 Yes [id number] 20mg Take 1 U nivers 20 mg 5-03 tablet by ity of tablet 00:00: mouth in [place] 00 the Medical morning. Branch proMETHazin 2022-0 Yes [id number] 25mg Take 1 Univers e 25 mg 5-03 tablet by ity of tablet 00:00: mouth [place] 00 every 4 Medical (four) Branch hours as needed for Nausea and Vomiting (N/V). nortriptyli Yes [id number] 50mg Take 1 Univers ne 50 mg 5-03 capsule by ity o f capsule 00:00: mouth at [place] [address] bedtime. Medical Branch zolpidem 10 Yes [id number] 10mg Take 1 U nivers mg tablet 5-03 tablet by ity o f 00:00: mouth at [place] [address] bedtime. Medical Branch rosuvastati Yes [id number] 5mg Take 5 mg Univers n 5 mg CpSP 5-03 by mouth ity of 00:00: in the [place] morning. Medical Branch insulin Yes [id number] 50U inject 50 U nivers glargine 3-28 Units ity of (LANTUS 00:00: under the [place] U-100 00 skin in Medical INSULIN) the Branch 100 unit/mL morning injection and 50 Units in the evening. insulin Yes [id number] 30U inject 30 U nivers aspart 3-28 Units ity of RAPID 00:00: under the [place] (NOVOLOG 00 skin in Medical U-100 the Branch INSULIN morning ASPART) 100 and 30 unit/mL Units at injection noon and 30 Units in the evening. inject with meals. insulin Yes [id number] 50U inject 50 U nivers glargine 3-28 Units ity of (LANTUS 00:00: under the [place] U-100 00 skin in Medical INSULIN) the Branch 100 unit/mL morning injection and 50 Units in the evening. insulin Yes [id number] 30U inject 30 U nivers aspart 3-28 Units ity of RAPID 00:00: under the [place] (NOVOLOG 00 skin in Medical U-100 the Branch INSULIN morning ASPART) 100 and 30 unit/mL Units at injection noon and 30 Units in the evening. inject with meals. insulin Yes [id number] 50U inject 50 U nivers glargine 3-28 Units ity of (LANTUS 00:00: under the [place] U-100 00 skin in Medical INSULIN) the Branch 100 unit/mL morning injection and 50 Units in the evening. insulin Yes [id number] 30U inject 30 U nivers aspart 3-28 Units ity of RAPID 00:00: under the [place] (NOVOLOG 00 skin in Medical U-100 the Branch INSULIN morning ASPART) 100 and 30 unit/mL Units at injection noon and 30 Units in the evening. inject with meals. insulin Yes [id number] 50U inject 50 U nivers glargine 3-28 Units ity of (LANTUS 00:00: under the [place] U-100 00 skin in Medical INSULIN) the Branch 100 unit/mL morning injection and 50 Units in the evening. insulin Yes [id number] 30U inject 30 U nivers aspart 3-28 Units ity of RAPID 00:00: under the [place] (NOVOLOG 00 skin in Medical U-100 the Branch INSULIN morning ASPART) 100 and 30 unit/mL Units at injection noon and 30 Units in the evening. inject with meals. insulin Yes [id number] 50U inject 50 U nivers glargine 3-28 Units ity of (LANTUS 00:00: under the [place] U-100 00 skin in Medical INSULIN) the Branch 100 unit/mL morning injection and 50 Units in the evening. insulin Yes [id number] 30U inject 30 U nivers aspart 3-28 Units ity of RAPID 00:00: under the [place] (NOVOLOG 00 skin in Medical U-100 the Branch INSULIN morning ASPART) 100 and 30 unit/mL Units at injection noon and 30 Units in the evening. inject with meals. insulin Yes [id number] 50U inject 50 U nivers glargine 3-28 Units ity of (LANTUS 00:00: under the [place] U-100 00 skin in Medical INSULIN) the Branch 100 unit/mL morning injection and 50 Units in the evening. insulin Yes [id number] 30U inject 30 U nivers aspart 3-28 Units ity of RAPID 00:00: under the [place] (NOVOLOG 00 skin in Medical U-100 the Branch INSULIN morning ASPART) 100 and 30 unit/mL Units at injection noon and 30 Units in the evening. inject with meals. insulin Yes [id number] 50U inject 50 U nivers glargine 3-28 Units ity of (LANTUS 00:00: under the [place] U-100 00 skin in Medical INSULIN) the Branch 100 unit/mL morning injection and 50 Units in the evening. insulin Yes [id number] 30U inject 30 U nivers aspart 3-28 Units ity of RAPID 00:00: under the [place] (NOVOLOG 00 skin in Medical U-100 the Branch INSULIN morning ASPART) 100 and 30 unit/mL Units at injection noon and 30 Units in the evening. inject with meals. insulin Yes [id number] 50U inject 50 U nivers glargine 3-28 Units ity of (LANTUS 00:00: under the [place] U-100 00 skin in Medical INSULIN) the Branch 100 unit/mL morning injection and 50 Units in the evening. insulin Yes [id number] 30U inject 30 U nivers aspart 3-28 Units ity of RAPID 00:00: under the [place] (NOVOLOG 00 skin in Medical U-100 the Branch INSULIN morning ASPART) 100 and 30 unit/mL Units at injection noon and 30 Units in the evening. inject with meals. NORTRIPTYLI Yes [id number] 50mg TAKE 1 Univers NE 50 mg 2-03 CAPSULE BY ity o f capsule 00:00: [facility]TH AT [place] [facility] NORTRIPTYLI 0 Yes [id number] 50mg TAKE 1 Univers NE 50 mg 2-03 CAPSULE BY ity o f capsule 00:00: MOUTH AT [place] [facility] NORTRIPTYLI 2022-0 Yes [id number] 50mg TAKE 1 Univers NE 50 mg 2-03 CAPSULE BY ity o f capsule 00:00: MOUTH AT [place] [facility] Branch NORTRIPTYLI 0 Yes [id number] 50mg TAKE 1 Univers NE 50 mg 2-03 CAPSULE BY ity o f capsule 00:00: [facility]TH AT [place] [facility] NORTRIPTYLI 0 Yes [id number] 50mg TAKE 1 Univers NE 50 mg 2-03 CAPSULE BY ity o f capsule 00:00: MOUTH AT [place] [facility] NORTRIPTYLI 0 Yes [id number] 50mg TAKE 1 Univers NE 50 mg 2-03 CAPSULE BY ity o f capsule 00:00: MOUTH AT [place] [facility] NORTRIPTYLI 2022-2022- No [id number] 50mg TAKE 1 Univers NE 50 mg 06-20 CAPSULE BY ity of capsule 00:00: 00:00 MOUTH AT [place] 00 :00 BEDTIME Medical Branch NORTRIPTYLI 2022- No [id number] 50mg TAKE 1 Univers NE 50 mg 06-20 CAPSULE BY ity of capsule 00:00: 00:00 MOUTH AT [place] 00 :00 BEDTIME Medical Branch insulin 2021-05 Yes [id number] 50U inject 50 U nivers glargine 2-12 Units ity of (LANTUS 00:00: under the [place] U-100 00 skin at Medical INSULIN) bedtime. Branch 100 unit/mL injection insulin 2021-05 Yes [id number] 50U inject 50 U nivers glargine 2-12 Units ity of (LANTUS 00:00: under the [place] U-100 00 skin at Medical INSULIN) bedtime. Branch 100 unit/mL injection insulin 2021-05 Yes [id number] 50U inject 50 U nivers glargine 2-12 Units ity of (LANTUS 00:00: under the [place] U-100 00 skin at Medical INSULIN) bedtime. Branch 100 unit/mL injection insulin 2021-05 Yes [id number] 50U inject 50 U nivers glargine 2-12 Units ity of (LANTUS 00:00: under the [place] U-100 00 skin at Medical INSULIN) bedtime. Branch 100 unit/mL injection insulin 2021-05 Yes [id number] 50U inject 50 U nivers glargine 2-12 Units ity of (LANTUS 00:00: under the [place] U-100 00 skin at Medical INSULIN) bedtime. Branch 100 unit/mL injection insulin 2021-05- No [id number] 50U inject 50 Univers glargine 2-12 03-28 Units ity of (LANTUS 00:00: 00:00 under the [facility] [place] [facility] U-100 00 :00 skin at Medical INSULIN) bedtime. Branch 100 unit/mL injection rosuvastati 2021-05- No Take by Un pasha n 5 mg CpSP 05-19 mouth. ity o f 16:24: 00:00 [place] 10 :00 Medical Branch rosuvastati 2021-05- No Take by Un pasha n 5 mg CpSP 1-02 11 mouth. ity o f 16:24: 00:00 10 :00 Medical Branch rosuvastati 2021-05- No Take by Un pasha n 5 mg CpSP 1-02 03-19 mouth. ity o f 16:24: 00:00 10 :00 Medical Branch rosuvastati 2021-05 Yes [id number] 5mg Take 5 mg Univers n 5 mg CpSP 1-02 by mouth ity of 00:00: daily. Medical Branch zolpidem 10 2021-05 Yes [id number] 10mg Take 1 U nivers mg tablet 1-02 tablet by ity o f 00:00: mouth at [place] 00 bedtime. Medical Branch rosuvastati 2021-05 Yes [id number] 5mg Take 5 mg Univers n 5 mg CpSP 1-02 by mouth ity of 00:00: daily. Medical Branch zolpidem 10 2021-05 Yes [id number] 10mg Take 1 U nivers mg tablet 1-02 tablet by ity o f 00:00: mouth at [place] bedtime. Medical Branch rosuvastati 2021-05 Yes [id number] 5mg Take 5 mg Univers n 5 mg CpSP 1-02 by mouth ity of 00:00: daily. Medical Branch zolpidem 10 2021-05 Yes [id number] 10mg Take 1 U nivers mg tablet 1-02 tablet by ity o f 00:00: mouth at [place] bedtime. Medical Branch rosuvastati 2021-05 Yes [id number] 5mg Take 5 mg Univers n 5 mg CpSP 1-02 by mouth ity of 00:00: daily. Medical Branch zolpidem 10 2021-05 Yes [id number] 10mg Take 1 U nivers mg tablet 1-02 tablet by ity o f 00:00: mouth at [place] bedtime. Medical Branch rosuvastati 2021-05 Yes [id number] 5mg Take 5 mg Univers n 5 mg CpSP 1-02 by mouth ity of 00:00: daily. Medical Branch zolpidem 10 2021-05 Yes [id number] 10mg Take 1 U nivers mg tablet 1-02 tablet by ity o f 00:00: mouth at [place] [address] bedtime. Medical Branch rosuvastati 2021-05 Yes [id number] 5mg Take 5 mg Univers n 5 mg CpSP 1-02 by mouth ity of 00:00: daily. Medical Branch zolpidem 10 2021-05 Yes [id number] 10mg Take 1 U nivers mg tablet 1-02 tablet by ity o f 00:00: mouth at [place] [address] bedtime. Medical Branch rosuvastati 2021-05 Yes [id number] 5mg Take 5 mg Univers n 5 mg CpSP 1-02 by mouth ity of 00:00: daily. Medical Branch zolpidem 10 2021-05 Yes [id number] 10mg Take 1 U nivers mg tablet 1-02 tablet by ity o f 00:00: mouth at [place] [address] bedtime. Medical Branch rosuvastati 2021-05 Yes [id number] 5mg Take 5 mg Univers n 5 mg CpSP 1-02 by mouth ity of 00:00: daily. Medical Branch zolpidem 10 2021-05 Yes [id number] 10mg Take 1 U nivers mg tablet 1-02 tablet by ity o f 00:00: mouth at [place] [address] bedtime. Medical Branch rosuvastati 2021-05 Yes [id number] 5mg Take 5 mg Univers n 5 mg CpSP 1-02 by mouth ity of 00:00: daily. Medical Branch zolpidem 10 2021-05 Yes [id number] 10mg Take 1 U nivers mg tablet 1-02 tablet by ity o f 00:00: mouth at [place] [address] bedtime. Medical Branch rosuvastati 2021-05 Yes [id number] 5mg Take 5 mg Univers n 5 mg CpSP 1-02 by mouth ity of 00:00: daily. Medical Branch zolpidem 10 2021-05 Yes [id number] 10mg Take 1 U nivers mg tablet 1-02 tablet by ity o f 00:00: mouth at [place] [address] bedtime. Medical Branch rosuvastati 2021-05 Yes [id number] 5mg Take 5 mg Univers n 5 mg CpSP 1-02 by mouth ity of 00:00: daily. Medical Branch zolpidem 10 2021-05 Yes [id number] 10mg Take 1 U nivers mg tablet 1-02 tablet by ity o f 00:00: mouth at [place] 00 bedtime. Medical Branch rosuvastati 2021-05- No [id number] 5mg Take 5 mg Univers n 5 mg CpSP 05-19 by mouth ity of 00:00: 00:00 daily. [place] 00 :00 Medical Branch zolpidem 10 2021-05- No [id number] 10mg Take 1 Univers mg tablet 05-19 tablet by ity of 00:00: 00:00 mouth at [place] 00 :00 bedtime. Medical Branch rosuvastati 2021-05- No [id number] 5mg Take 5 mg Univers n 5 mg CpSP 05-19 by mouth ity of 00:00: 00:00 daily. [place] 00 :00 Medical Branch zolpidem 10 2021-05- No [id number] 10mg Take 1 Univers mg tablet 05-19 tablet by ity of 00:00: 00:00 mouth at [place] 00 :00 bedtime. Medical Branch insulin 0 Yes [id number] 30U inject 30 U nivers aspart 4-22 Units ity of RAPID 00:00: under the [place] (NOVOLOG 00 skin 3 Medical U-100 (three) Branch INSULIN times ASPART) 100 daily with unit/mL meals. injection insulin 2021-0 Yes [id number] 30U inject 30 U nivers aspart 4-22 Units ity of RAPID 00:00: under the [place] (NOVOLOG 00 skin 3 Medical U-100 (three) Branch INSULIN times ASPART) 100 daily with unit/mL meals. injection insulin 2021-0 Yes [id number] 30U inject 30 U nivers aspart 4-22 Units ity of RAPID 00:00: under the [place] (NOVOLOG 00 skin 3 Medical U-100 (three) Branch INSULIN times ASPART) 100 daily with unit/mL meals. injection insulin 2021-0 Yes [id number] 30U inject 30 U nivers aspart 4-22 Units ity of RAPID 00:00: under the [place] (NOVOLOG 00 skin 3 Medical U-100 (three) Branch INSULIN times ASPART) 100 daily with unit/mL meals. injection insulin 2021-0 Yes [id number] 30U inject 30 U nivers aspart 4-22 Units ity of RAPID 00:00: under the [place] (NOVOLOG 00 skin 3 Medical U-100 (three) Branch INSULIN times ASPART) 100 daily with unit/mL meals. injection insulin 2021-0 Yes [id number] 30U inject 30 U nivers aspart 4-22 Units ity of RAPID 00:00: under the [place] (NOVOLOG 00 skin 3 Medical U-100 (three) Branch INSULIN times ASPART) 100 daily with unit/mL meals. injection insulin 2021-0 Yes [id number] 30U inject 30 U nivers aspart 4-22 Units ity of RAPID 00:00: under the [place] (NOVOLOG 00 skin 3 Medical U-100 (three) Branch INSULIN times ASPART) 100 daily with unit/mL meals. injection insulin 2021-0 Yes [id number] 30U inject 30 U nivers aspart 4-22 Units ity of RAPID 00:00: under the [place] (NOVOLOG 00 skin 3 Medical U-100 (three) Branch INSULIN times ASPART) 100 daily with unit/mL meals. injection insulin 2021-0 Yes [id number] 30U inject 30 U nivers aspart 4-22 Units ity of RAPID 00:00: under the [place] (NOVOLOG 00 skin 3 Medical U-100 (three) Branch INSULIN times ASPART) 100 daily with unit/mL meals. injection insulin 2021-0 Yes [id number] 30U inject 30 U nivers aspart 4-22 Units ity of RAPID 00:00: under the [place] (NOVOLOG 00 skin 3 Medical U-100 (three) Branch INSULIN times ASPART) 100 daily with unit/mL meals. injection insulin 2021-0 Yes [id number] 30U inject 30 U nivers aspart 4-22 Units ity of RAPID 00:00: under the [place] (NOVOLOG 00 skin 3 Medical U-100 (three) Branch INSULIN times ASPART) 100 daily with unit/mL meals. injection insulin 2021-0 Yes [id number] 30U inject 30 U nivers aspart 4-22 Units ity of RAPID 00:00: under the [place] (NOVOLOG 00 skin 3 Medical U-100 (three) Branch INSULIN times ASPART) 100 daily with unit/mL meals. injection insulin 2021-0 Yes [id number] 30U inject 30 U nivers aspart 4-22 Units ity of RAPID 00:00: under the [place] (NOVOLOG 00 skin 3 Medical U-100 (three) Branch INSULIN times ASPART) 100 daily with unit/mL meals. injection insulin 2021-0 2023- No [id number] 30U inject 30 Univers aspart 4-22 03-28 Units ity of RAPID 00:00: 00:00 under the [place] (NOVOLOG 00 :00 skin 3 Medical U-100 (three) Branch INSULIN times ASPART) 100 daily with unit/mL meals. injection zolpidem 10 0 Yes [id number] 10mg Take 1 U nivers mg tablet 4-20 tablet by ity o f 00:00: mouth at [place] [address] bedtime. Medical Branch nortriptyli 0 Yes [id number] 50mg Take 1 Univers ne 50 mg 4-20 capsule by ity o f capsule 00:00: mouth at [place] [address] bedtime. Medical Branch zolpidem 10 0 Yes [id number] 10mg Take 1 U nivers mg tablet 4-20 tablet by ity o f 00:00: mouth at [place] [address] bedtime. Medical Branch nortriptyli Yes [id number] 50mg Take 1 Univers ne 50 mg 4-20 capsule by ity o f capsule 00:00: mouth at [place] [address] bedtime. Medical Branch zolpidem 10 0 Yes [id number] 10mg Take 1 U nivers mg tablet 4-20 tablet by ity o f 00:00: mouth at [place] [address] bedtime. Medical Branch nortriptyli 0 Yes [id number] 50mg Take 1 Univers ne 50 mg 4-20 capsule by ity o f capsule 00:00: mouth at [place] [address] bedtime. Medical Branch zolpidem 10 0 Yes [id number] 10mg Take 1 U nivers mg tablet 4-20 tablet by ity o f 00:00: mouth at [place] [address] bedtime. Medical Branch nortriptyli Yes [id number] 50mg Take 1 Univers ne 50 mg 4-20 capsule by ity o f capsule 00:00: mouth at [place] [address] bedtime. Medical Branch nortriptyli 0 Yes [id number] 50mg Take 1 Univers ne 50 mg 4-20 capsule by ity o f capsule 00:00: mouth at [place] [address] bedtime. Medical Branch nortriptyli 0 Yes [id number] 50mg Take 1 Univers ne 50 mg 4-20 capsule by ity o f capsule 00:00: mouth at [place] [address] bedtime. Medical Branch nortriptyli Yes [id number] 50mg Take 1 Univers ne 50 mg 4-20 capsule by ity o f capsule 00:00: mouth at [place] [address] bedtime. Medical Branch nortriptyli Yes [id number] 50mg Take 1 Univers ne 50 mg 4-20 capsule by ity o f capsule 00:00: mouth at [place] [address] bedtime. Medical Branch nortriptyli Yes [id number] 50mg Take 1 Univers ne 50 mg 4-20 capsule by ity o f capsule 00:00: mouth at [place] [address] bedtime. Medical Branch nortriptyli 2022- No [id number] 50mg Take 1 Univers ne 50 mg 4-20 - capsule by ity of capsule 00:00: 00:00 mouth at [place] 00 :00 bedtime. Medical Branch zolpidem 10 2021- No [id number] 10mg Take 1 Univers mg tablet -06 04- tablet by ity of 00:00: 00:00 mouth at [place] 00 :00 bedtime. Medical Branch zolpidem 10 2021- No [id number] 10mg Take 1 Univers mg tablet 4-06 04- tablet by ity of 00:00: 00:00 mouth at [place] 00 :00 bedtime. Medical Branch zolpidem 10 2021- No [id number] 10mg Take 1 Univers mg tablet -06 04- tablet by ity of 00:00: 00:00 mouth at [place] 00 :00 bedtime. Medical Branch insulin 2021- No [id number] 30U inject 30 Univers aspart 20 04-22 Units ity of RAPID 00:00: 00:00 under the [place] (NOVOLOG 00 :00 skin 3 Medical U-100 (three) Branch INSULIN times ASPART) 100 daily with unit/mL meals. injection Insulin 2021- No [id number] 50U inject 50 Univers Glargine 19 06-19 Units ity of (LANTUS 00:00: 04:59 under the [facility] s SOLOSTAR 00 :00 skin 2 Medical U-100 (two) Branch INSULIN) times 100 unit/mL daily for (3 mL) 60 days. injection famotidine 2-0 Yes 20mg Take 20 mg U nivers 20 mg 1-24 by mouth ity of tablet 09:08: before meals. Medical Branch rosuvastati 2022-0 Yes Take by Uni vers n 5 mg CpSP 1-24 mouth. ity of 09:08: Medical Branch famotidine 2022-0 Yes 20mg Take 20 mg U nivers 20 mg 1-24 by mouth ity of tablet 09:08: before meals. Medical Branch rosuvastati 2022-0 Yes Take by Uni vers n 5 mg CpSP 1-24 mouth. ity of 09:08: Medical Branch famotidine 2022-0 Yes 20mg Take 20 mg U nivers 20 mg 1-24 by mouth ity of tablet 09:08: before meals. Medical Branch rosuvastati 2022-0 Yes Take by Uni vers n 5 mg CpSP 1-24 mouth. ity of 09:08: Medical Branch famotidine 2022-0 Yes 20mg Take 20 mg U nivers 20 mg 1-24 by mouth ity of tablet 09:08: before meals. Medical Branch rosuvastati 2022-0 Yes Take by Uni vers n 5 mg CpSP 1-24 mouth. ity of 09:08: Medical Branch famotidine 2022-0 Yes 20mg Take 20 mg U nivers 20 mg 1-24 by mouth ity of tablet 09:08: before meals. Medical Branch famotidine 2022-0 Yes 20mg Take 20 mg U nivers 20 mg 1-24 by mouth ity of tablet 09:08: before meals. Medical Branch famotidine 2022-0 Yes 20mg Take 20 mg U nivers 20 mg 1-24 by mouth ity of tablet 09:08: before meals. Medical Branch famotidine 2022-0 Yes 20mg Take 20 mg U nivers 20 mg 1-24 by mouth ity of tablet 09:08: before meals. Medical Branch famotidine 2022-0 Yes 20mg Take 20 mg U nivers 20 mg 1-24 by mouth ity of tablet 09:08: before meals. Medical Branch famotidine 2022-0 Yes 20mg [...] by mouth ity of tablet 09:08: before 44 meals. Medical Branch famotidine 2022-0 Yes 20mg Take 20 mg U nivers 20 mg 1-24 by mouth ity of tablet 09:08: before [place] 44 meals. Medical Branch famotidine 2022-0 Yes 20mg Take 20 mg U nivers 20 mg 1-24 by mouth ity of tablet 09:08: before [place] 44 meals. Medical Branch lisinopriL 2022-0 Yes [id number] 5mg Take 1 U nivers 5 mg tablet 1-24 tablet by ity of 00:00: mouth [place] 00 daily. Medical Branch lisinopriL 2022-0 Yes [id number] 5mg Take 1 U nivers 5 mg tablet 1-24 tablet by ity of 00:00: mouth [place] 00 daily. Medical Branch lisinopriL 2-0 Yes [id number] 5mg Take 1 U nivers 5 mg tablet 1-24 tablet by ity of 00:00: mouth [place] 00 daily. Medical Branch lisinopriL 2-0 Yes [id number] 5mg Take 1 U nivers 5 mg tablet 1-24 tablet by ity of 00:00: mouth [place] 00 daily. Medical Branch lisinopriL 2-0 Yes [id number] 5mg Take 1 U nivers 5 mg tablet 1-24 tablet by ity of 00:00: mouth [place] 00 daily. Medical Branch lisinopriL 2-0 Yes [id number] 5mg Take 1 U nivers 5 mg tablet 1-24 tablet by ity of 00:00: mouth [place] 00 daily. Medical Branch lisinopriL 2-0 Yes [id number] 5mg Take 1 U nivers 5 mg tablet 1-24 tablet by ity of 00:00: mouth [place] 00 daily. Medical Branch lisinopriL 2-0 Yes [id number] 5mg Take 1 U nivers 5 mg tablet 1-24 tablet by ity of 00:00: mouth [place] 00 daily. Medical Branch lisinopriL 2-0 Yes [id number] 5mg Take 1 U nivers 5 mg tablet 1-24 tablet by ity of 00:00: mouth [place] 00 daily. Medical Branch lisinopriL 2-0 Yes [id number] 5mg Take 1 U nivers 5 mg tablet 1-24 tablet by ity of 00:00: mouth [place] 00 daily. Medical Branch lisinopriL 2-0 Yes [id number] 5mg Take 1 U nivers 5 mg tablet 1-24 tablet by ity of 00:00: mouth [place] 00 daily. Medical Branch lisinopriL 2-0 Yes [id number] 5mg Take 1 U nivers 5 mg tablet 1-24 tablet by ity of 00:00: mouth [place] 00 daily. Medical Branch lisinopriL 2-0 Yes [id number] 5mg Take 1 U nivers 5 mg tablet 1-24 tablet by ity of 00:00: mouth [place] 00 daily. Medical Branch lisinopriL 2022-0 Yes [id number] 5mg Take 1 U nivers 5 mg tablet 1-24 tablet by ity of 00:00: mouth [place] 00 daily. Medical Branch lisinopriL 2021-0 Yes [id number] 5mg Take 1 U nivers 5 mg tablet 1-24 tablet by ity of 00:00: mouth [place] 00 daily. Medical Branch lisinopriL 2021-0 3- No [id number] 5mg Take 1 Univers 5 mg tablet -24 -03 tablet by it y of 00:00: 00:00 mouth [place] 00 :00 daily. Medical Branch lisinopriL 2021-0 2022- No [id number] 5mg Take 1 Univers 5 mg tablet -08 10- tablet by it y of 00:00: 00:00 mouth [place] 00 :00 daily. Medical Branch Immunizations Ordered Filled Immunization Date Status Comments [facility] e Immunization Name Name SARS-COV-2 COVID-19 2020 Completed Unive rsity of MODERNA VACCINE 00:00:00 [facility] ical Branch SARS-COV-2 COVID-19 2020 Completed Unive rsity of MODERNA VACCINE 00:00:00 [facility] ical Branch SARS-COV-2 COVID-19 2020 Completed Unive rsity of MODERNA VACCINE 00:00:00 [facility] ical Branch SARS-COV-2 COVID-19 2020 Completed Unive rsity of MODERNA 12+ YRS 00:00:00 [place] Med ical VACCINE Branch SARS-COV-2 COVID-19 2020 [...] Unive rsity of MODERNA 12+ YRS 00:00:00 [facility] ical VACCINE Branch SARS-COV-2 COVID-19 2020 Completed [...] Unive rsity of MODERNA 12+ YRS 00:00:00 [place] Med ical VACCINE Branch Vital Signs Vital Name Observation Time Observation Value Comments Source Systolic blood 2022-09-17 13:54:00 174 mm[Hg] Univer sity of pressure [facility] Diastolic blood 2022-09-17 13:54:00 112 mm[Hg] Unive rsity of pressure [facility] Heart rate 2022-09-17 13:53:00 112 [facility] Body temperature 2022-09-17 13:53:00 36.78 [facility] Body height 2022-09-17 13:53:00 185.4 cm [facility] Body weight 2022-09-17 13:53:00 99.791 kg [facility] BMI 2022-09-17 13:53:00 29.03 kg/m2 [facility] ty [facility] Systolic blood 2022-03-19 21:05:00 142 mm[Hg] Univer sity of pressure [facility] Diastolic blood 2022-03-19 21:05:00 98 mm[Hg] Unive rsity of pressure [facility] Heart rate 2022-03-19 21:01:00 112 /min [facility] Body height 2022-03-19 21:01:00 185.4 cm [facility] Body weight 2022-03-19 21:01:00 102.059 kg [facility] BMI 2022-03-19 21:01:00 29.69 kg/m2 [facility] Procedures Procedure Date / Time Performed Performing Clinician [facility] e ASSIGNMENT OF BENEFITS 2022-09-17 13:35:32 Doctor Unassigned, No [facility] POCT HEMOGLOBIN A1C 2022-09-17 00:00:00 Sandra Carrasco Un iversity of [facility] HOSPITAL ADMISSION 2022-08-21 05:01:00 Doctor Unassigned, No Uni versity of [facility] EXTERNAL PROVIDER 2022-07-31 05:01:00 Doctor Unassigned, No Univ ersity of [facility] EXTERNAL PROVIDER 2022-07-22 06:01:00 Doctor Unassigned, No Univ ersity of [facility] POCT HEMOGLOBIN A1C 2022-03-19 00:00:00 Sandra Carrasco Un iversity of [facility] EXTERNAL PROVIDER 2022-01-06 05:01:00 Doctor Unassigned, No Univ ersity of [facility] EXTERNAL PROVIDER 2021-12-26 05:01:00 Doctor Unassigned, No Univ ersity of [facility] [id number] 2019-12-05 00:00:00 [facility] Encounters Start End Encounter Admission Attending Care Care Encounter Source Date/Time Date/Time Type Type Clinicians Facility Department ID 2021-02-24 [facility] [id number] [facility] 12[facility]26:05 [facility] 2022-12-20 2022-12-20 Bonnie Carrasco [facility] 1.2.840.114 [id number] Univers 00:00:00 00:00:00 [facility] 350.1.13.10 it y of Hardik TOLBERT 4.2.7.2.686 Mati as MARK?BLEA [phone] Ok xiomara ALBERTO [address] [place] [address] MEDICAL OFFICE BUILDING 2022-10-20 2022-10-20 Outpatient JADYN CHOW [facility] [id number] Univers 09:30:00 09:30:00 SANDRA callejas [facility] 2022-10-04 2022-10-04 [facility] 1.2.840.114 [id number] Univers 00:00:00 00:00:00 [facility] HEALTH 350.1.13.10 it y of [place] 4.2.7.2.686 Mati as MARK?BLEA [phone] [address] MEDICAL OFFICE [facility] 2022-09-18 2022-09-18 [facility] 1.2.840.114 [id number] Univers 00:00:00 00:00:00 Sandra HEALTH 350.1.13.10 it y of [place] 4.2.7.2.686 Mati as MARK?BLEA [id number] [address] [facility] 2022-09-17 2022-09-17 Office [facility] 1.2.840.114 [id number] Univers 09:15:00 09:15:00 Visit [facility] 350.1.13.10 it y of [place] 4.2.7.2.686 Mati as MARK?BLEA [id number] [address] [facility] 2022-09-17 2022-09-17 Outpatient [facility] [id number] [facility] 09:15:00 09:11:44 SANDRA ity [facility] 2022-09-17 2022-09-17 Orders Doctor CHELSEA 1.2.840.114 [id number] Univers 00:00:00 00:00:00 Only Unassigned, [place] 350.1.13.10 ity of [place] [facility] 4.2.7.2.686 Mati as [id number] [address] 2022-08-21 2022-08-21 Orders Doctor CHELSEA 1.2.840.114 [id number] Univers 00:00:00 00:00:00 Only Unassigned, MK 350.1.13.10 ity of [place] [facility] 4.2.7.2.686 Mati as [id number] [address] 2022-08-12 2022-08-12 [facility] 1.2.840.114 [id number] Univers 00:00:00 00:00:00 Sandra HEALTH 350.1.13.10 it y of [place] 4.2.7.2.686 Mati as MARK?BLEA [id number] [address] [facility] 2022-07-31 2022-07-31 Orders Doctor CHELSEA 1.2.840.114 [id number] Univers 00:00:00 00:00:00 Only Unassigned, MK 350.1.13.10 ity of [place] [facility] 4.2.7.2.686 Mati as [id number] [address] 2022-07-22 2022-07-22 Orders Doctor CHELSEA 1.2.840.114 [id number] Univers 00:00:00 00:00:00 Only Unassigned, MK 350.1.13.10 ity of [place] [facility] 4.2.7.2.686 Mati as [id number] [address] 2022-07-11 2022-07-11 Telephone [facility] 1.2.840.114 [id number] Univers 00:00:00 00:00:00 Sandra HEALTH 350.1.13.10 it y of [place] 4.2.7.2.686 Mati as MARK?BLEA [id number] [address] [facility] 2022-06-20 2022-06-20 [facility] 1.2.840.114 [id number] Univers 00:00:00 00:00:00 Sandra HEALTH 350.1.13.10 it y of [place] 4.2.7.2.686 Mati as MARK?BLEA [id number] [address] [facility] 2022-04-28 2022-04-28 Telephone [facility] 1.2.840.114 [id number] Univers 00:00:00 00:00:00 Sandra HEALTH 350.1.13.10 it y of [place] 4.2.7.2.686 Mati as MARK?BLEA [id number] [address] 2022-03-20 2022-03-20 Telephone [facility] 1.2.840.114 [id number] Univers 00:00:00 00:00:00 [facility] 350.1.13.10 it y of [place] 4.2.7.2.686 Mati as MARK?BLEA [id number] Ok xiomara [address] [facility] 2022-03-19 2022-03-19 [facility] 1.2.840.114 [id number] Univers 16:00:00 16:15:00 Visit [facility] 350.1.13.10 it y of [place] 4.2.7.2.686 Mati as MARK?BLEA [id number] [address] [facility] 2022-03-19 2022-03-19 Outpatient [facility] [id number] Univers 16:00:00 16:00:00 SANDRA ity [facility] 2022-03-13 2022-03-[facility] 1.2.840.114 [id number] Univers 00:00:00 00:00:00 [facility] 350.1.13.10 it y of [place] 4.2.7.2.686 Mati as MARK?BLEA [id number] [address] [facility] 2022-03-10 2022-03-10 Outpatient Piter CARRASCO [facility] [id number] Univers 14:15:00 14:15:00 SANDRA ity [facility] 2022-01-06 2022-01-06 Orders Doctor CHELSEA Quiros2.840.114 [id number] Univers 00:00:00 00:00:00 Only Unassigned, MK 350.1.13.10 ity of [place] [facility] 4.2.7.2.686 Mati as [id number] [address] 2021-12-26 2021-12-26 Orders Doctor CHELSEA Quiros2.840.114 [id number] Univers 00:00:00 00:00:00 Only Unassigned, MK 350.1.13.10 ity of [place] [facility] 4.2.7.2.686 Mati as [id number] [address] 2021-10-09 2021-10-09 Outpatient Piter CARRASCO [facility] [id number] Univers 08:15:00 08:15:00 SANDRA ramya [facility] 2021-10-04 2021-10-04 Outpatient Piter CARRASCO [facility] [id number] Univers 08:00:00 08:00:00 SANDRA callejas [facility] 2021-09-06 2021-09-06 [facility] 1..840.114 [id number] Univers 00:00:00 00:00:00 Sandra [facility] 350.1.13.10 it y of [place] 4.2.7.2.686 Mati as MARK?BLEA [phone] Ok xiomara [address] [facility] 2021-09-04 2021-09-04 Outpatient Piter CARRASCO [facility] [id number] Univers 13:15:00 13:47:39 SANDRA callejas [facility] 2021-09-04 2021-09-04 Office [facility] 1..840.114 [id number] Univers 13:15:00 13:47:39 Visit [facility] 350.1.13.10 it y of [place] 4.2.7.2.686 Mati as MARK?BLEA [id number] Ok xiomara [address] [facility] 2021-09-04 2021-09-04 Outpatient Piter CARRASCO [facility] [id number] Univers 13:15:00 13:15:00 [facility] 2021-09-03 2021-09-03 Outpatient ROCHELLE JEFFERS [id number] [place] 08:45:00 08:45:00 TYREE Seybol d 2021-09-03 2021-09-03 [facility] 1.2.840.114 [id number] Univers 00:00:00 00:00:00 [facility] 350.1.13.10 it y of [place] 4.2.7.2.686 Mati as MARK?BLEA [id number] [address] [facility] 2021-09-03 2021-09-03 Telephone Tanvi [facility] 1..[id number] Univers 00:00:00 00:00:00 Aide HEALTH 350.1.13.10 it y of [place] 4.2.7.2.686 Mati as MARK?BLEA [id number] [address] MEDICAL OFFICE [facility] 2021-09-03 2021-09-03 [facility] 1.2.840.114 [id number] Univers 00:00:00 00:00:00 Aide HEALTH 350.1.13.10 it y of [place] 4.2.7.2.686 Mati as MARK?BLEA [id number] [address] MEDICAL OFF[address] [facility] 2021-08-07 2021-08-07 Outpatient R BELA [facility] [id number] Univers 08:30:00 08:30:00 [facility] 2021-08-07 2021-08-07 [facility] [id number] Univers 08:30:00 08:30:00 [facility] 2021-07-01 2021-07-01 Outpatient [facility] [id number] Univers 13:40:00 13:40:00 JONATHONLIAM callejas o f [facility] 2021-06-12 2021-06-12 Outpatient R [facility] [id number] Univers 07:45:00 07:45:00 ity [facility] 2021-06-10 2021-06-10 [facility] [id number] Univers 09:00:00 11:19:35 AIDE callejas [facility] 2021-06-10 2021-06-10 Out[facility] [id number] Univers 09:00:00 11:19:35 AIDE mataramya [facility] 2021-06-10 2021-06-10 Outpatient [facility] [id number] Univers 09:00:00 11:19:35 AIDE callejas [facility] 2021-06-10 2021-06-10 Office [facility] 1.2.840.114 [id number] Univers 09:00:00 11:19:35 Visit Aide HENAO 350.1.13.10 it y of [place] 4.2.7.2.686 Mati as MARK?BLEA [id number] Ok xiomara [address] MEDICAL OFFICE BUILDING 2021-05-31 2021-05-31 Outpatient R HEAVEN [facility] [id number] Univers 18:00:00 18:00:[address] [address] 2021-05-31 2021-05-31 Outpatient R ROSALVAARAMIS [facility] [id number] Univers 18:00:00 18:00:00 VELIA ramya [facility] 2021-05-31 2021-05-31 Outpatient R HEAVEN, [facility] [id number] Univers 18:00:00 18:00:00 [facility] 2021-05-31 2021-05-31 Orders Doctor CHELSEA 1.2.840.114 [id number] Univers 00:00:00 00:00:00 Only Unassigned, INDUSTRY 350.1.13.10 ity of [facility] 4.2.7.2.686 Mati as [id number] [address] 2021-05-28 2021-05-28 Outpatient R AVA [facility] [id number] Univers 15:30:00 15:30:00 ROLAND britta [facility] 2021-05-25 2021-05-25 Urgent Yaquelin Smith [facility] 1.2.840.114 [id number] Univers 16:00:00 16:35:38 Armen Randhawa [facility] 350.1.13.10 ity [facility] 4.2.7.2.686 Mati as MARK?BLEA [id number] Ok xiomara ALBERTO [address] [facility] 2021-05-25 2021-05-25 Outpatient [facility] [id number] Univers 16:00:00 16:35:38 ALLI adolforamya o f [facility] 2020-08-13 2020-08-13 Inpatient HCARG [facility] [id number] [facility] 18:08:39 18:08:[address] [place] [address] [facility]ospita l 2020-06-14 2020-06-16 Inpatient [facility] ER [id number] [facility] 07:47:00 08:46:42 [facility] 2020-04-18 2020-04-20 Inpatient [facility] ER [id number] [facility] 10:19:00 06:19:59 [facility] 2020-01-22 2020-01-24 Inpatient [facility] ER [id number] [facility] 01:29:00 03:16:41 [facility] 2019-12-01 2020-01-03 Inpatient [facility] ER [id number] [facility] 00:13:00 17:12:43 [facility] 2019-12-19 2019-12-19 Outpatient KNOW, [facility] ADMI [id number] [facility] 23:24:00 23:24:00 DOES_NOT 13 [facility] 2019-10-15 2019-10-20 Inpatient SUPA William, [facility] TL2E [id number] [facility] 13:44:00 03:31:15 Wilmer [facility] 2019-06-13 2019-06-21 Inpatient [facility] ER [id number] [facility] 17:11:00 07:49:09 [facility] 2019-06-01 2019-06-08 Inpatient [facility] ER [id number] [facility] 13:21:00 15:53:07 [facility] 2019-05-22 2019-05-24 Inpatient [facility] ER [id number] [facility] 05:31:00 21:34:09 [facility] 2019-05-20 2019-05-23 Inpatient [facility] ER [id number] [facility] 22:15:00 21:46:45 07 [facility] Results Test Description Test Time Test Comments Results Result Comments Source POCT HEMOGLOBIN A1C TEST 2022-09-17 14:14:00 Test Item Value Reference Range Interpretation Comme nts POCT HBA1C (test code = 4548-4) 8.7 % 4-6 A Lab Interpretation (test code = 73418-1) Abnormal [facility] HEMOGLOBIN A1C [id number] 14:14:00 Test Item Value Reference Range Interpretation Comments POCT HBA1C (test code = 4548-4) 8.7 % 4-6 A Lab Interpretation (test code = Abnormal 36272-7) [facility] [id number] 21:28:00 Test Item Value Reference Range Interpretation Comments POCT HBA1C (test code = 4548-4) 9.6 % 4-6 A Lab Interpretation (test code = Abnormal 13169-1) [facility] ABD PELVIS [id number] 19:35:00 [facility]OSPITAL[facility]: RADHA CARPENTER : 1980 Sex: M Name: RADHA CARPENTER [place] FSED : 1980 Age/S: 39 / M [address] Unit #: [id number] Loc: [place] [address] Phys: Tony Noriega MD Acct: [id number] Dis Date: Status: PRE ER PHONE #:Exam Date: 08/13/2020 1588 FAX #: Reason: ABD PAIN EXAMS: CPT CODE: [id number] CT ABD PELVIS W/CONT 44157 CT SCAN OF THE ABDOMEN AND PELVIS [...] evidence of hydronephrosis, solid mass, pyelonephritis or obstructingkidney stone. Visualized ureters are unremarkable. There is no evidence of pancreatic mass, atrophy,calcification. There is no abdominal free fluid or adenopathy. There is no bowel wall thickening or d ilatation. There is no evidence of appendicitis, diverticulitis, [...] M [address] Unit #: [id number] Loc: [place] [address] Phys: Twan Noriega Acct: [id number] Dis Date: Status: PRE ER PHONE #: Exam Date: 08/13/20201923 FAX #: Reason: ABD PAIN EXAMS: CPT CODE: [id number] CT ABD PELVIS W/CONT 40078 (Continued) CC: Galindo Chris MD Technologist:Jamil Cox CT (R) CTDI: 10.45 DLP: 602.65 Trnscb Date/Time: 08/13/2020 (1934) tLEST Orig Print D/T: S: 08/13/2020 (1937) PAGE 2 Signed ReportUA RFLX MICROSCOPIC [id number] 19:33:00 Test Item Value Reference Range Interpretation [...] Suprapubic PainURINE SOURCE: CLEAN CATCH URINEBASIC METABOLIC [id number] 19:30:00 Test Item Value Reference Range Interpretation [...] RESULT BY1.21. [Automated mess age] The system [employer] generated this result transmitted ref erence range: >=60. Th e reference range was not used to int erpret this result as normal/abnormal . CREATININE (test code 0.91 mg/dl 0.70-1.30 N = CREAT) CALCIUM (test code = 9.6 mg/dL 8.5-10.1 N CA) LIVER [id number] 19:30:00 Test Item Value Reference Range Interpretation [...] 78 U/L 45-117 N code = ALKP) [id number] 19:30:00 Test Item Value Reference Range Interpretation Comments LIPASE (test code = LIP) 59 U/L 73-393 L [id number] 19:30:00 Test Item Value Reference Range Interpretation [...] >78 ------- [Automa ghazala message] The system [employer] generated this result tra nsmitted reference range : <=3.0. The reference range was not used to interpret th is result as normal/abnormal . DRUGS OF ABUSE [id number] 19:08:00 Test Item Value Reference Range Interpretation [...] = [facility] LISTED CUTOFFS DRUG CLASS INITIAL TEST LE JEROD AMPHETAMINES 10 00 NG/MLBARBITURAT ES 200 NG/MLBENZODIAZE PIN ES 200 NG/MLCOCAINE METABOLITE 300 NG/MLMARIJUANA METABOLITE 50 NG/MLOPIATES 30 0 NG/MLPHENCYCLID INE 25 NG/ML UA RFLX MICROSCOPIC [id number] 19:05:00 Test Item Value Reference Range Interpretation [...] Suprapubic PainURINE SOURCE: CLEAN CATCH URINEBASIC METABOLIC [id number] 18:20:00 Test Item Value Reference Range Interpretation [...] RESULT BY1.21. [Automated mess age] The system [employer] generated this result transmitted ref erence range: >=60. Th e reference range was not used to int erpret this result as normal/abnormal . CREATININE (test code 0.91 mg/dl 0.70-1.30 N = CREAT) CALCIUM (test code = 9.6 mg/dL 8.5-10.1 N CA) LIVER [id number] 18:20:00 Test Item Value Reference Range Interpretation [...] 78 U/L 45-117 N code = ALKP) [id number] 18:20:00 Test Item Value Reference Range Interpretation Comments LIPASE (test code = LIP) 59 U/L 73-393 L CBC W/AUTO [id number] 18:06:00 Test Item Value Reference Range Interpretation [...] (test NO NORMAL code = RBCM) LACTIC [id number] 18:05:00 Test Item Value Reference Range Interpretation Comments LACTIC ACID (test code = LACT) 2.0 mmol/l 0.4-2.0 N [id number] 17:57:00 Test Item Value Reference Range Interpretation Comments GLUBED (test code = GLUBED) 89 mg/dL 70-105 N [id number] 12:05:00 Test Item Value Reference Range Interpretation Comments GLUBED (test code = GLUBED) 314 mg/dL 70-105 H [id number] 12:04:00 Test Item Value Reference Range Interpretation Comments GLUBED (test code = GLUBED) 371 mg/dL 70-105 H LACTIC [id number] 11:41:00 Test Item Value Reference Range Interpretation Comments LACTIC ACID (test code = LACT) 1.5 mmol/l 0.4-2.0 N - CT LOWER EXTRM W/O C [id number] 11:30:00 [facility] : 1980 Sex: M Name: RADHA CARPENTER [place] [facility] : 1980 Age/S: 39 / M 200 [address] Unit #: [id number] Loc: [place] [address] Phys: Tony Noriega MD Acct: [id number] Dis Date: Status: REG ER PHONE #: Exam Date: 06/14/2020 1017 FAX #: Reason: R FOOT SWELLING EXAMS: CPT CODE: [id number] CT LOWER EXTRM W/[place] [address] - CT LOWER EXTRM W/O C RT [...] signed by: JIMMIE FERNANDEZ M.D. PAGE 1 SignedReport (CONTINUED) Name: RADHA CARPENTER FSED : 1980 Age/S: 39 / M [address] Unit #: [id number] Loc: [place] [address] Phys: Tony Noriega MD Acct: [id number] Dis Date:Status: REG ER PHONE #: Exam Date: 06/14/2020 1017 FAX #: Reason: R FOOT SWELLING EXAMS: CPT CODE: [id number] CT L[place] EXTRM W/[place] [address] (Continued) CC: Tony Noriega MD; Galindo Chris MD Technologist:Fede Caballero, RT (R) CT CTDI: 10.53 DLP: 350.96 Trnscb Date/Time: 06/14/2020 (1130) [email or web address] Orig Print D/T: S: 06/14/2020 (4614) PAGE 2 Signed ReportDRUGS OF ABUSE [id number] 10:53:00 Test Item Value Reference Range Interpretation [...] code = [facility] LISTED CUTOFFS DRUG CLASS INIT IAL TEST LEVEL AMPHETAMINES 1 000 NG/MLBARBITURAT ES 200 NG/MLBENZODIAZE PIN ES 200 NG/MLCOCAINE METABOLITE 300 NG/MLMARIJUANA METABOLITE 50 NG/MLOPIATES 30 0 NG/MLPHENCYCLID INE 25 NG/ML - CT ABD PELVIS [id number] 09:45:00 [facility]ENTER : 1980 Sex: M Name: RADHA CARPENTER FSED : 1980 Age/S: 39 / M [address] Unit #: [id number] Loc: [place] [address] Phys: Tony Noriega MD Acct: [id number] Dis Date: Status: PRE ER PHONE #: Exam Date: 06/14/2020 0918 FAX #: Reason: ABD PAIN EXAMS: CPT CODE: [id number] CT ABD PELVIS W/[id number] CT abdomen and pelvis with contrast 06/14/2020 [...] at 0945 Reported and signed by: AUTUMN TRNA M.D. PAGE 1 Signed Report (CONTINUED) Name: RADHA CARPENTER FSED : 1980 Age/S: 39 / M [address] Unit #: [id number] Loc: [place] [address] Phys: Tony Noriega MD Acct: [id number] Dis Date: Status: PRE ER PHONE #: Exam Date: 06/14/202018 FAX #:Reason: ABD PAIN EXAMS: CPT CODE: [id number] CT ABD PELVIS W/CONT 97606 (Continued) CC: Tony Noriega MD; Galindo Chris MD Technologist:Fede Caballero, RT (R) CT CTDI: 10.33 DLP: 549.38 Trnscb Date/T hina: 06/14/2020 (0945) [email or web address] Orig Print D/T: S: 06/14/2020 (1331) PAGE 2 Signed ReportUA RFLX MICROSCOPIC [id number] 09:14:00 Test Item Value Reference Range Interpretation [...] Dysuria/FrequencyURINE SOURCE: CLEAN CATCH URINEUA RFLX MICROSCOPIC [id number] 09:12:00 Test Item Value Reference Range Interpretation [...] culture: Dysuria/FrequencyURINE SOURCE: CLEAN CATCH URINEBASIC METABOLIC [id number] 08:48:00 Test Item Value Reference Range Interpretation [...] = 10.1 mg/dL 8.5-10.1 N CA) LIVER [id number] 08:48:00 Test Item Value Reference Range Interpretation [...] 84 U/L 45-117 N code = ALKP) [id number] 08:48:00 Test Item Value Reference Range Interpretation Comments LIPASE (test code = LIP) 78 U/L 73-393 N [id number] 08:48:00 Test Item Value Reference Range Interpretation Comments TROPONIN-I (test <0.017 ng/ml 0.00-0.045 N GUIDELINES: 0.08 - 0.09 code = TROPI) Indeterminate0 .10 Risk Stratification Limit: Suggest sequent ial testing0.60 - 1 .50 AMI cutoff: Myocard ial Injury by WHO criteria BASIC METABOLIC [id number] 08:46:00 Test Item Value Reference Range Interpretation [...] = 10.1 mg/dL 8.5-10.1 N CA) LIVER [id number] 08:46:00 Test Item Value Reference Range Interpretation [...] 84 U/L 45-117 N code = ALKP) [id number] 08:46:00 Test Item Value Reference Range Interpretation Comments LIPASE (test code = LIP) U/L 73-393 [id number] 08:46:00 Test Item Value Reference Range Interpretation Comments TROPONIN-I (test code = TROPI) ng/ml 0.00-0.045 PROTHROMBIN [id number] 08:45:00 Test Item Value Reference Interpretation Comments [...] with mechanical prosthetic heart valves. THROMBOPLASTIN TIME [id number] 08:45:00 Test Item Value Reference Range Interpretation Comments THROMBOPLASTIN TIME PARTIAL 25.4 seconds 22.8-34.4 N (test code = PTT) CBC W/AUTO [id number] 08:30:00 Test Item Value Reference Range Interpretation [...] (test NO NORMAL code = RBCM) LACTIC [id number] 08:29:00 Test Item Value Reference Range Interpretation Comments LACTIC ACID (test 2.5 mmol/l 0.4-2.0 H RESULTS C ALLED TO code = LACT) TONY Slade MD AT 0829 06/14/20. Berny Landaverde [id number] 07:55:00 Test Item Value Reference Range Interpretation Comments GLUBED (test code = GLUBED) 367 mg/dL 70-105 H URINALYSIS W REFLEX [id number] 11:06:00 Test Item Value Reference Range Interpretation [...] SPERMU) FEW /hpf NEGATIVE A BASIC METABOLIC [id number] 11:02:00 Test Item Value Reference Range Interpretation [...] = 10.7 mg/dL 8.5-10.1 H CA) LIVER [id number] 11:02:00 Test Item Value Reference Range Interpretation [...] 82 U/L 50-136 N code = ALKP) [id number] 11:02:00 Test Item Value Reference Range Interpretation Comments LIPASE (test code = LIP) 56 U/L 73-393 L [id number] 11:02:00 Test Item Value Reference Range Interpretation Comments TROPONIN-I (test <0.015 ng/ml 0.00-0.045 N GUIDELINES: 0.08 - 0.09 code = TROPI) Indeterminate0 .10 Risk Stratification Limit: Suggest sequent ial testing0.60 - 1 .50 AMI cutoff: Myocard ial Injury by WHO criteria BASIC METABOLIC [id number] 11:01:00 Test Item Value Reference Range Interpretation [...] = 10.7 mg/dL 8.5-10.1 H CA) LIVER [id number] 11:01:00 Test Item Value Reference Range Interpretation [...] TOTAL (test U/L 50-136 code = ALKP) [id number] 11:01:00 Test Item Value Reference Range Interpretation Comments LIPASE (test code = LIP) 56 U/L 73-393 L [id number] 11:01:00 Test Item Value Reference Range Interpretation Comments TROPONIN-I (test code = TROPI) ng/ml 0.00-0.045 BASIC METABOLIC [id number] 11:00:00 Test Item Value Reference Range Interpretation [...] = 10.7 mg/dL 8.5-10.1 H CA) LIVER [id number] 11:00:00 Test Item Value Reference Range Interpretation [...] TOTAL (test U/L 50-136 code = ALKP) [id number] 11:00:00 Test Item Value Reference Range Interpretation Comments LIPASE (test code = LIP) 56 U/L 73-393 L [id number] 11:00:00 Test Item Value Reference Range Interpretation Comments TROPONIN-I (test code = TROPI) ng/ml 0.00-0.045 BASIC METABOLIC [id number] 10:59:00 Test Item Value Reference Range Interpretation [...] = 10.7 mg/dL 8.5-10.1 H CA) LIVER [id number] 10:59:00 Test Item Value Reference Range Interpretation [...] TOTAL (test U/L 50-136 code = ALKP) [id number] 10:59:00 Test Item Value Reference Range Interpretation Comments LIPASE (test code = LIP) 56 U/L 73-393 L [id number] 10:59:00 Test Item Value Reference Range Interpretation Comments TROPONIN-I (test code = TROPI) ng/ml 0.00-0.045 BASIC METABOLIC [id number] 10:58:00 Test Item Value Reference Range Interpretation [...] = CA) 10.7 mg/dL 8.5-10.1 H LIVER [id number] 10:58:00 Test Item Value Reference Range Interpretation [...] TOTAL (test U/L 50-136 code = ALKP) [id number] 10:58:00 Test Item Value Reference Range Interpretation Comments LIPASE (test code = LIP) 56 U/L 73-393 L [id number] 10:58:00 Test Item Value Reference Range Interpretation Comments TROPONIN-I (test code = TROPI) ng/ml 0.00-0.045 BASIC METABOLIC [id number] 10:57:00 Test Item Value Reference Range Interpretation [...] = CA) 10.7 mg/dL 8.5-10.1 H LIVER [id number] 10:57:00 Test Item Value Reference Range Interpretation [...] TOTAL (test U/L 50-136 code = ALKP) [id number] 10:57:00 Test Item Value Reference Range Interpretation Comments LIPASE (test code = LIP) 56 U/L 73-393 L [id number] 10:57:00 Test Item Value Reference Range Interpretation Comments TROPONIN-I (test code = TROPI) ng/ml 0.00-0.045 BASIC METABOLIC [id number] 10:53:00 Test Item Value Reference Range Interpretation [...] (test code = CA) mg/dL 8.5-10.1 LIVER [id number] 10:53:00 Test Item Value Reference Range Interpretation Comments TOTAL PROTEIN (test code = PROT) g/dl 6.4-8.2 ALBUMIN (test code = ALB) g/dl 3.4-5.0 BILIRUBIN TOTAL (test code = BILT) mg/dl 0.2-1.0 BILIRUBIN DIRECT (test code = BILD) mg/dl 0.0-0.4 SGOT/AST (test code = AST) U/L 15-37 SGPT/ALT (test code = ALT) U/L 12-78 ALKALINE PHOSPHATASE TOTAL (test code U/L 50-136 = ALKP) [id number] 10:53:00 Test Item Value Reference Range Interpretation Comments LIPASE (test code = LIP) U/L 73-393 [id number] 10:53:00 Test Item Value Reference Range Interpretation Comments TROPONIN-I (test code = TROPI) ng/ml 0.00-0.045 CBC W/AUTO [id number] 10:43:00 Test Item Value Reference Range Interpretation [...] code = 0.00 K/mm3 0.0-0.1 N NRBC#) [id number] 10:39:00 Test Item Value Reference Range Interpretation Comments GLUBED (test code = 228 mg/dL 70-105 H Performe d by certified GLUBED) ap operator at [facility] BASIC METABOLIC [id number] 02:26:00 Test Item Value Reference Range Interpretation [...] = 10.3 mg/dL 8.5-10.1 H CA) LIVER [id number] 02:26:00 Test Item Value Reference Range Interpretation [...] 79 U/L 45-117 N code = ALKP) [id number] 02:26:00 Test Item Value Reference Range Interpretation Comments LIPASE (test code = LIP) 138 U/L 73-393 N PROTHROMBIN [id number] 02:16:00 Test Item Value Reference Interpretation Comments Range PROTHROMBIN TIME 9.2 SECONDS 8.7-11.9 N THERAPEUTIC LEVEL: 1.5 TO PATIENT (test code 1.9 TIMES NORMAL RANGE = PTP) INTERNATIONAL 0.9 Recommended Th erapeutic NORMAL RATIO (test PT Ratios For Oral code = INR) AnticoagulantTh erapy. CONDITION INT' L NORMALIZED PT RATIO Prophylaxis of venous thrombosis 2.0 - 3.0in high risk medic al or surgicalpatient s, treatment of venousthrombosi s, prevention of e mbolism. Prevention of r ecurrent embolism, 2.5 - 3.5or treatment of pa tients with mechanical prosthetic heart valves. THROMBOPLASTIN TIME [id number] 02:16:00 Test Item Value Reference Range Interpretation Comments THROMBOPLASTIN TIME PARTIAL 24.8 seconds 22.8-34.4 N (test code = PTT) CBC W/AUTO [id number] 02:03:00 Test Item Value Reference Range Interpretation [...] (test NO NORMAL code = RBCM) LACTIC [id number] 02:02:00 Test Item Value Reference Range Interpretation Comments LACTIC ACID (test code = LACT) 2.0 mmol/l 0.4-2.0 N [id number] 20:16:00 Test Item Value Reference Range Interpretation Comments GLUBED (test code = 189 mg/dL 70-105 H Performe d by certified GLUBED) ap operator at [facility]2020-07-31 16:43:00 Test Item Value Reference Range Interpretation Comments GLUBED (test code = 197 mg/dL 70-105 H Performe d by certified GLUBED) ap operator at [facility]2020-07-31 11:20:00 Test Item Value Reference Range Interpretation Comments GLUBED (test code = 289 mg/dL 70-105 H Performe d by certified GLUBED) ap operator at [facility] [id number] 07:36:00 Test Item Value Reference Range Interpretation Comments GLUBED (test code = 154 mg/dL 70-105 H Performe d by certified GLUBED) ap operator at [facility] [id number] 20:42:00 Test Item Value Reference Range Interpretation Comments GLUBED (test code = 155 mg/dL 70-105 H Performe d by certified GLUBED) ap operator at [facility] [id number] 15:46:00 Test Item Value Reference Range Interpretation Comments GLUBED (test code = 201 mg/dL 70-105 H Performe d by certified GLUBED) ap operator at [facility] [id number] 11:32:00 Test Item Value Reference Range Interpretation Comments GLUBED (test code = 252 mg/dL 70-105 H Performe d by certified GLUBED) ap operator at [facility] [id number] 08:37:00 Test Item Value Reference Range Interpretation Comments GLUBED (test code = 225 mg/dL 70-105 H Performe d by certified GLUBED) ap operator at [facility] [id number] 04:12:00 Test Item Value Reference Range Interpretation Comments CREATININE (test code = CREAT) 1.00 mg/dL 0.67-1.17 N CBC W/AUTO [id number] 04:03:00 Test Item Value Reference Range Interpretation [...] code = 0.00 K/mm3 0.0-0.1 N NRBC#) [id number] 19:33:00 Test Item Value Reference Range Interpretation Comments GLUBED (test code = 236 mg/dL 70-105 H Performe d by certified GLUBED) ap operator at [facility]2020-07-29 16:33:00 Test Item Value Reference Range Interpretation Comments GLUBED (test code = 225 mg/dL 70-105 H Performe d by certified GLUBED) ap operator at [facility] [id number] 11:29:00 Test Item Value Reference Range Interpretation Comments GLUBED (test code = 298 mg/dL 70-105 H Performe d by certified GLUBED) ap operator at [facility]2020-07-29 08:00:00 Test Item Value Reference Range Interpretation Comments GLUBED (test code = 279 mg/dL 70-105 H Performe d by certified GLUBED) ap operator at [facility]2020-07-28 21:36:00 Test Item Value Reference Range Interpretation Comments GLUBED (test code = 243 mg/dL 70-105 H Performe d by certified GLUBED) ap operator at [facility]2020-07-28 16:54:00 Test Item Value Reference Range Interpretation Comments GLUBED (test code = 227 mg/dL 70-105 H Performe d by certified GLUBED) ap operator at [facility]2020-07-28 12:06:00 Test Item Value Reference Range Interpretation Comments GLUBED (test code = 292 mg/dL 70-105 H Performe d by certified GLUBED) ap operator at [facility]2020-07-28 07:21:00 Test Item Value Reference Range Interpretation Comments GLUBED (test code = 341 mg/dL 70-105 H Performe d by certified GLUBED) ap operator at [facility]2020-07-27 23:10:00 Test Item Value Reference Range Interpretation Comments GLUBED (test code = 318 mg/dL 70-105 H Performe d by certified GLUBED) ap operator at [facility]2020-07-27 17:57:00 Test Item Value Reference Range Interpretation Comments GLUBED (test code = 317 mg/dL 70-105 H Performe d by certified GLUBED) ap operator at [facility]2020-07-27 11:45:00 Test Item Value Reference Range Interpretation Comments GLUBED (test code = 318 mg/dL 70-105 H Performe d by certified GLUBED) ap operator at [facility]2020-07-27 07:22:00 Test Item Value Reference Range Interpretation Comments GLUBED (test code = 305 mg/dL 70-105 H Performe d by certified GLUBED) ap operator at [facility]2020-07-26 20:16:00 Test Item Value Reference Range Interpretation Comments GLUBED (test code = 202 mg/dL 70-105 H Performe d by certified GLUBED) ap operator at [facility]2020-07-26 16:57:00 Test Item Value Reference Range Interpretation Comments GLUBED (test code = 298 mg/dL 70-105 H Performe d by certified GLUBED) ap operator at [facility]2020-07-26 10:12:00 Test Item Value Reference Range Interpretation Comments GLUBED (test code = 396 mg/dL 70-105 H Performe d by certified GLUBED) ap operator at [facility]2020-07-25 20:52:00 Test Item Value Reference Range Interpretation Comments GLUBED (test code = 276 mg/dL 70-105 H Performe d by certified GLUBED) ap operator at [facility]2020-07-25 16:20:00 Test Item Value Reference Range Interpretation Comments GLUBED (test code = 230 mg/dL 70-105 H Performe d by certified GLUBED) ap operator at [facility]2020-07-25 11:50:00 Test Item Value Reference Range Interpretation Comments GLUBED (test code = 299 mg/dL 70-105 H Performe d by certified GLUBED) ap operator at [facility]2020-07-25 07:26:00 Test Item Value Reference Range Interpretation Comments GLUBED (test code = 278 mg/dL 70-105 H Performe d by certified GLUBED) ap operator at [facility]2020-07-24 20:44:00 Test Item Value Reference Range Interpretation Comments GLUBED (test code = 196 mg/dL 70-105 H Performe d by certified GLUBED) ap operator at [facility]2020-07-24 16:17:00 Test Item Value Reference Range Interpretation Comments GLUBED (test code = 274 mg/dL 70-105 H Performe d by certified GLUBED) ap operator at [facility]2020-07-24 11:38:00 Test Item Value Reference Range Interpretation Comments GLUBED (test code = 280 mg/dL 70-105 H Performe d by certified GLUBED) ap operator at [facility]2020-07-24 07:37:00 Test Item Value Reference Range Interpretation Comments GLUBED (test code = 235 mg/dL 70-105 H Performe d by certified GLUBED) ap operator at [facility]2020-07-23 22:34:00 Test Item Value Reference Range Interpretation Comments GLUBED (test code = 217 mg/dL 70-105 H Performe d by certified GLUBED) ap operator at [facility] [id number] 18:05:00 Test Item Value Reference Range Interpretation Comments GLUBED (test code = 264 mg/dL 70-105 H Performe d by certified GLUBED) ap operator at [facility] [id number] 11:09:00 Test Item Value Reference Range Interpretation Comments GLUBED (test code = 273 mg/dL 70-105 H Performe d by certified GLUBED) ap operator at [facility] COMPREHENSIVE METABOLIC [id number] 08:14:00 Test Item Value Reference Range Interpretation [...] TOTAL (test code = ALKP) COMPREHENSIVE METABOLIC [id number] 08:13:00 Test Item Value Reference Range Interpretation [...] TOTAL (test code = ALKP) COMPREHENSIVE METABOLIC [id number] 08:12:00 Test Item Value Reference Range Interpretation [...] TOTAL (test code = ALKP) COMPREHENSIVE METABOLIC [id number] 08:11:00 Test Item Value Reference Range Interpretation [...] TOTAL (test code = ALKP) COMPREHENSIVE METABOLIC [id number] 08:09:00 Test Item Value Reference Range Interpretation [...] U/L 50-136 code = ALKP) COMPREHENSIVE METABOLIC [id number] 08:08:00 Test Item Value Reference Range Interpretation [...] U/L 50-136 code = ALKP) COMPREHENSIVE METABOLIC [id number] 08:03:00 Test Item Value Reference Range Interpretation [...] U/L 50-136 code = ALKP) CBC W/AUTO [id number] 07:55:00 Test Item Value Reference Range Interpretation [...] code = 0.00 K/mm3 0.0-0.1 N NRBC#) [id number] 19:39:00 Test Item Value Reference Range Interpretation Comments GLUBED (test code = 239 mg/dL 70-105 H Performe d by certified GLUBED) ap operator at [facility] CARDIO C REACTIVE PROTEIN [id number] 16:49:00 Test Item Value Reference Range Interpretation Comments CARDIO C REACTIVE 54.80 0.0-3.0 H CCRP MG/L RISK ACCORDING TO PROTEIN HS (test code AHA/CD C GUIDELINES--------- = CCRP) ---------<1.0 L OW CARDIOVASCULAR RISK1.0 - 3.0 AVERAGE CAR DIOVASCULAR RISK3.1 - 10.0 HIGH CARDIOVASCULAR RISK>10.0 PERSISTENT ELEV ATIONS MAY REPRESENT NON-CARDIOVASCU LAR INFLAMMATION SED [id number] 16:47:00 Test Item Value Reference Range Interpretation Comments SED RATE (test code = SEDW) 134 mm/hr 0-15 H [id number] 16:11:00 Test Item Value Reference Range Interpretation Comments GLUBED (test code = 162 mg/dL 70-105 H Performe d by certified GLUBED) ap operator at [facility]2020-07-22 11:20:00 Test Item Value Reference Range Interpretation Comments GLUBED (test code = 276 mg/dL 70-105 H Performe d by certified GLUBED) ap operator at [facility]2020-07-22 07:12:00 Test Item Value Reference Range Interpretation Comments GLUBED (test code = 238 mg/dL 70-105 H Performe d by certified GLUBED) ap operator at [facility]2020-07-21 21:21:00 Test Item Value Reference Range Interpretation Comments GLUBED (test code = 212 mg/dL 70-105 H Performe d by certified GLUBED) ap operator at [facility]2020-07-21 16:44:00 Test Item Value Reference Range Interpretation Comments GLUBED (test code = 236 mg/dL 70-105 H Performe d by certified GLUBED) ap operator at [facility] [id number] 12:01:00 RUN DATE: 12/06/19 [facility] LAB LIVE PAGE 1 RUN TIME: 1201 Specimen Inquiry RUN USER: INTERFACE PATIENT: RADHA CARPENTER [facility] #: [id number] AGE/SX: 39/M ROOM: [facility] RE12/01/19[facility] DR: Joe Wolf MD : 84 BED: A DIS: STATUS: ADM IN TLOC: SPEC #: [id number] RECD: 12/05/19 STATUS: DINORA DREW #: [id number] JOEL: 12/05/19- [facility] DR: Simone Cabrera ENTERED: 12/05/19 SP [...] one cassette. COPIES TO: Rosalina Morales DPM [address] [place] [address] [place] [address] Simone Cabrera [address] [place] [address] Ld Rutherford MD [address] [place] [address] Galindo Chris MD [address] [facility] [place] [address] PROCEDURES: SURG/PATH GROSS (12/05/19-6) TISSUES: FOOT - RIGHT FOOT TISSUE CONTINUED ON NEXT PAGE RUN DATE: 12/06/19 [facility] LIVE PAGE 2RUN TIME: 1201 Specimen Inquiry RUN USER: INTERFACE SPEC #: [id number] PATIENT: RADHA CARPENTER #[id number] (Continued) Surgery information Surgery date 12/05/19 Surgeon(s): SIMONE DIAZ Pre-Op Dx: RIGHT FOOT ULCER Post-Op Dx: SAME Signed SIGNATURE ON FILE Simone Suarez 12/06/19 1201 END OF REPORT [id number] 11:54:00 Test Item Value Reference Range Interpretation Comments GLUBED (test code = 300 mg/dL 70-105 H Performe d by certified GLUBED) ap operator at [facility] BASIC METABOLIC [id number] 11:28:00 Test Item Value Reference Range Interpretation [...] 8.6 mg/dL 8.5-10.1 N CA) BASIC METABOLIC [id number] 11:25:00 Test Item Value Reference Range Interpretation [...] CA) 8.6 mg/dL 8.5-10.1 N BASIC METABOLIC [id number] 11:24:00 Test Item Value Reference Range Interpretation [...] CA) 8.6 mg/dL 8.5-10.1 N CBC W/AUTO [id number] 09:58:00 Test Item Value Reference Range Interpretation [...] code = INCREASED ADEQUATE PLTEST) BASIC METABOLIC [id number] 08:57:00 Test Item Value Reference Range Interpretation [...] code = CA) mg/dL 8.5-10.1 CBC W/AUTO [id number] 08:42:00 Test Item Value Reference Range Interpretation [...] code = 0.00 K/mm3 0.0-0.1 N NRBC#) [id number] 07:57:00 Test Item Value Reference Range Interpretation Comments GLUBED (test code = 330 mg/dL 70-105 H Performe d by certified GLUBED) ap operator at [facility] [id number] 22:44:00 Test Item Value Reference Range Interpretation Comments GLUBED (test code = 284 mg/dL 70-105 H Performe d by certified GLUBED) ap operator at [facility] [id number] 18:22:00 Test Item Value Reference Range Interpretation Comments GLUBED (test code = 269 mg/dL 70-105 H Performe d by certified GLUBED) ap operator at [facility] [id number] 13:13:00 Test Item Value Reference Range Interpretation Comments GLUBED (test code = 202 mg/dL 70-105 H Performe d by certified GLUBED) ap operator at [facility] BASIC METABOLIC [id number] 09:04:00 Test Item Value Reference Range Interpretation [...] 9.2 mg/dL 8.5-10.1 N CA) BASIC METABOLIC [id number] 09:03:00 Test Item Value Reference Range Interpretation [...] CA) 9.2 mg/dL 8.5-10.1 N BASIC METABOLIC [id number] 09:01:00 Test Item Value Reference Range Interpretation [...] = CA) 9.2 mg/dL 8.5-10.1 N PROTHROMBIN [id number] 09:01:00 Test Item Value Reference Interpretation Comments Range PROTHROMBIN TIME 9.9 SECONDS 8.7-12.1 N THERAPEUTIC LEVEL: 1.5 TO PATIENT (test code 1.9 TIMES NORMAL RANGE = PTP) INTERNATIONAL 0.9 Recommended erapeutic NORMAL RATIO (test PT Ratios For Oral code = INR) AnticoagulantTh erapy. CONDITION INT'L NORMALIZED PT RATIO Prophylaxis of venous thrombosis 2.0 - 3.0in high risk medic al or surgicalpatient s, treatment of venousthrombosi s, prevention of e mbolism. Prevention of r ecurrent embolism, 2.5 - 3.5or treatment of pa tients with mechanical prosthetic heart valves. LAB ANTICOAGULANT QUERY UNKNOWNTHROMBOPLASTIN TIME [id number] 09:01:00 Test Item Value Reference Range Interpretation Comments THROMBOPLASTIN TIME PARTIAL 29.3 seconds 22.8-34.4 N (test code = PTT) LAB ANTICOAGULANT QUERY UNKNOWNBASIC METABOLIC [id number] 08:46:00 Test Item Value Reference Range Interpretation [...] code = CA) mg/dL 8.5-10.1 CBC W/AUTO [id number] 08:33:00 Test Item Value Reference Range Interpretation [...] code = 0.00 K/mm3 0.0-0.1 N NRBC#) [id number] 08:03:00 Test Item Value Reference Range Interpretation Comments GLUBED (test code = 240 mg/dL 70-105 H Performe d by certified GLUBED) ap operator at [facility] [id number] 21:40:00 Test Item Value Reference Range Interpretation Comments GLUBED (test code = 208 mg/dL 70-105 H Performe d by certified GLUBED) ap operator at [facility] [id number] 17:39:00 Test Item Value Reference Range Interpretation Comments GLUBED (test code = 250 mg/dL 70-105 H Performe d by certified GLUBED) ap operator at [facility] COVID 19 Asymptomatic IH [id number] 17:18:00 Test Item Value Reference Interpretation Comments Range COVID 19 Presumed NEGATIVE SEBASTIEN COVID-19 Asymptomatic IH AG Negative --------- ------Results (test code = are for the COVNONPUIAG) identification of DDFZ-EfY-8nmtbv ocapsid protein antigen . Antigen is generallydet [...] nd Drug Administration' s Emergency Use Authorization. [id number] 12:09:00 Test Item Value Reference Range Interpretation Comments GLUBED (test code = 191 mg/dL 70-105 H Performe d by certified GLUBED) ap operator at [facility] [id number] 09:54:00 Test Item Value Reference Range Interpretation Comments GLYCOSYLATED 11.3 % <5.7 H SUGGESTED DIAG NOSIS HEMOGLOBIN (HA1C) INTERPRETA TION (test code = GLYHGB) ------- Nor mal: <5.7% Prediabet es: 5.7 - 6.4% Diabetic : >/= 6.5%* DUE TO ME THOD REVISION, REFER ENCE RANGE HAS BEEN UPDATED * ESTIMATED AVERAGE 278 MG/DL <126 GLUCOSE (test code = EAG) BASIC METABOLIC [id number] 09:16:00 Test Item Value Reference Range Interpretation [...] 9.5 mg/dL 8.5-10.1 N CA) CBC W/AUTO [id number] 08:55:00 Test Item Value Reference Range Interpretation [...] code = 0.00 K/mm3 0.0-0.1 N NRBC#) [id number] 08:21:00 Test Item Value Reference Range Interpretation Comments GLUBED (test code = 228 mg/dL 70-105 H Performe d by certified GLUBED) ap operator at [facility]2020-07-18 21:14:00 Test Item Value Reference Range Interpretation Comments GLUBED (test code = 178 mg/dL 70-105 H Performe d by certified GLUBED) ap operator at [facility]2020-07-18 17:11:00 Test Item Value Reference Range Interpretation Comments GLUBED (test code = 149 mg/dL 70-105 H Performe d by certified GLUBED) ap operator at [facility] - NM BONE 3 [id number] 15:01:00 FAX: Galindo Abdullahi MD [phone] Stanley: [facility] St: ADM Name: RADHA CARPENTER [facility] : 1980Age/S: 39/M [address] [place] [address] Unit #: [id number] Loc: [place] [address] Phys: Joe Wolf MD Acct: [id number] Dis Date: Status: ADM IN PHONE #: [phone] Exam Date: 12/02/2019 1447 FAX #: [phone] Reason: DIABETIC FOOT/UNABLE TO HAVE MRI EXAMS: CPT CODE: [id number] NM BONE 3 PHASE 75400 RADIOPHARMACEUTICAL: 20 mCi Tc-99m -MDP IV Correlated with foot radiograph dated November FINDINGS: Three phase imaging was performed of [...] M.D. CC: Galindo Chris MD Technologist: Wilmer Arboleda,AIDANT,NATURAL GAS INSPECTOR,RTR Trnscrd Date/Time/By: 12/03/2019 (1548) : By: [email or web address] Orig Print D/T: S: 12/03/2019 (5874) PAGE 1 Signed [id number] 12:21:00 Test Item Value Reference Range Interpretation Comments GLUBED (test code = 149 mg/dL 70-105 H Performe d by certified GLUBED) ap operator at [facility]2020-07-18 08:44:00 Test Item Value Reference Range Interpretation Comments GLUBED (test code = 191 mg/dL 70-105 H Performe d by certified GLUBED) ap operator at [facility]2020-07-17 21:21:00 Test Item Value Reference Range Interpretation Comments GLUBED (test code = 156 mg/dL 70-105 H Performe d by certified GLUBED) ap operator at [facility] [id number] 16:57:00 Test Item Value Reference Range Interpretation Comments GLUBED (test code = 143 mg/dL 70-105 H Performe d by certified GLUBED) ap operator at [facility]2020-07-17 11:37:00 Test Item Value Reference Range Interpretation Comments GLUBED (test code = 152 mg/dL 70-105 H Performe d by certified GLUBED) ap operator at [facility] BASIC METABOLIC [id number] 08:08:00 Test Item Value Reference Range Interpretation [...] 8.5 mg/dL 8.5-10.1 N CA) BASIC METABOLIC [id number] 08:04:00 Test Item Value Reference Range Interpretation [...] CA) 8.5 mg/dL 8.5-10.1 N BASIC METABOLIC [id number] 08:03:00 Test Item Value Reference Range Interpretation [...] code = CA) mg/dL 8.5-10.1 CBC W/AUTO [id number] 07:56:00 Test Item Value Reference Range Interpretation [...] code = 0.00 K/mm3 0.0-0.1 N NRBC#) [id number] 07:15:00 Test Item Value Reference Range Interpretation Comments GLUBED (test code = 125 mg/dL 70-105 H Performe d by certified GLUBED) ap operator at [facility] [id number] 21:13:00 Test Item Value Reference Range Interpretation Comments GLUBED (test code = 178 mg/dL 70-105 H Performe d by certified GLUBED) ap operator at [facility] [id number] 17:49:00 Test Item Value Reference Range Interpretation Comments GLYCOSYLATED 11.5 % <5.7 H SUGGESTED DIAG NOSIS HEMOGLOBIN (HA1C) INTERPRETA TION (test code = GLYHGB) ------- Nor mal: <5.7% Prediabet es: 5.7 - 6.4% Diabetic : >/= 6.5%* DUE TO OK THOD REVISION, REFER ENCE RANGE HAS BEEN UPDATED * ESTIMATED AVERAGE 283 MG/DL <126 GLUCOSE (test code = EAG) [id number] 16:39:00 Test Item Value Reference Range Interpretation Comments GLUBED (test code = 91 mg/dL 70-105 N Performe d by certified GLUBED) ap operator at [facility] BASIC METABOLIC [id number] 05:21:00 Test Item Value Reference Range Interpretation [...] = 10.2 mg/dL 8.5-10.1 H CA) LIVER [id number] 05:21:00 Test Item Value Reference Range Interpretation [...] 87 U/L 45-117 N code = ALKP) [id number] 05:21:00 Test Item Value Reference Range Interpretation [...] nd/or septic shock. CARDIO C REACTIVE PROTEIN [id number] 05:21:00 Test Item Value Reference Range Interpretation Comments CARDIO C REACTIVE 88.80 0.0-3.0 H CCRP MG/L RISK ACCORDING TO PROTEIN HS (test code AHA/CD C GUIDELINES--------- = CCRP) ---------<1.0 L OW CARDIOVASCULAR RISK1.0 - 3.0 AVERAGE CAR DIOVASCULAR RISK3.1 - 10.0 HIGH CARDIOVASCULAR RISK>10.0 PERSISTENT ELEV ATIONS MAY REPRESENT NON-CARDIOVASCU LAR INFLAMMATION CBC W/AUTO [id number] 03:55:00 Test Item Value Reference Range Interpretation [...] (test NO NORMAL code = RBCM) SED [id number] 03:55:00 Test Item Value Reference Range Interpretation Comments SED RATE (test code = SEDW) 26 mm/hr 0-15 H BASIC METABOLIC [id number] 03:39:00 Test Item Value Reference Range Interpretation [...] = 10.2 mg/dL 8.5-10.1 H CA) LIVER [id number] 03:39:00 Test Item Value Reference Range Interpretation [...] 87 U/L 45-117 N code = ALKP) [id number] 03:39:00 Test Item Value Reference Range Interpretation Comments LIPASE (test code = LIP) 74 U/L 73-393 N CARDIO C REACTIVE PROTEIN [id number] 03:39:00 Test Item Value Reference Range Interpretation Comments CARDIO C REACTIVE 88.80 0.0-3.0 H CCRP MG/L RISK ACCORDING TO PROTEIN HS (test code AHA/CD C GUIDELINES--------- = CCRP) ---------<1.0 L OW CARDIOVASCULAR RISK1.0 - 3.0 AVERAGE CAR DIOVASCULAR RISK3.1 - 10.0 HIGH CARDIOVASCULAR RISK>10.0 PERSISTENT ELEV ATIONS MAY REPRESENT NON-CARDIOVASCU LAR INFLAMMATION - XR FOOT 3+ V [id number] 03:11:00 FAX: Ld Rutherford [place]: [place] St: PRE FAX: Galindo Abdullahi MD [phone] Name: RADHA CARPENTER [place] [facility] : 1980 Age/S: 39/M [address] Unit #: [id number] Loc: [place] [address] Phys: Ld Rutherford MD Acct: [id number] Dis Date: Status: PRE ER PHONE #: Exam Date: 12/01/2019 0247FAX #: Reason: diabetic foot wound, pain EXAMS: CPT CODE: [id number] XR FOOT 3+ [place] RT [address] EXAM: - XR FOOT 3+ V RT [...] 12/01/2019 (313) PAGE 1 Signed ReportBASIC METABOLIC [id number] 02:59:00 Test Item Value Reference Range Interpretation [...] = 10.2 mg/dL 8.5-10.1 H CA) LIVER [id number] 02:59:00 Test Item Value Reference Range Interpretation [...] 87 U/L 45-117 N code = ALKP) [id number] 02:59:00 Test Item Value Reference Range Interpretation Comments LIPASE (test code = LIP) 74 U/L 73-393 N CARDIO C REACTIVE PROTEIN [id number] 02:59:00 Test Item Value Reference Range Interpretation Comments CARDIO C REACTIVE PROTEIN HS (test code 0.0-3.0 = CCRP) CBC W/AUTO [id number] 02:46:00 Test Item Value Reference Range Interpretation [...] (test NO NORMAL code = RBCM) SED [id number] 02:46:00 Test Item Value Reference Range Interpretation Comments SED RATE (test code = SEDW) mm/hr 0-15 [id number] 11:14:00 Test Item Value Reference Range Interpretation Comments GLUBED (test code = 223 mg/dL 70-105 H Performe d by certified GLUBED) ap operator at [facility] [id number] 06:41:00 Test Item Value Reference Range Interpretation Comments GLUBED (test code = 281 mg/dL 70-105 H Performe d by certified GLUBED) ap operator at [facility] COMPREHENSIVE METABOLIC [id number] 04:09:00 Test Item Value Reference Range Interpretation [...] TOTAL (test code = ALKP) CBC W/AUTO [id number] 03:32:00 Test Item Value Reference Range Interpretation [...] code = 0.00 K/mm3 0.0-0.1 N NRBC#) [id number] 20:11:00 Test Item Value Reference Range Interpretation Comments GLUBED (test code = 123 mg/dL 70-105 H Performe d by certified GLUBED) ap operator at [facility]2020-05-31 15:45:00 Test Item Value Reference Range Interpretation Comments GLUBED (test code = 156 mg/dL 70-105 H Performe d by certified GLUBED) ap operator at [facility]2020-05-31 11:33:00 Test Item Value Reference Range Interpretation Comments GLUBED (test code = 203 mg/dL 70-105 H Performe d by certified GLUBED) ap operator at [facility]2020-05-31 07:00:00 Test Item Value Reference Range Interpretation Comments GLUBED (test code = 219 mg/dL 70-105 H Performe d by certified GLUBED) ap operator at [facility]2020-05-30 22:19:00 Test Item Value Reference Range Interpretation Comments GLUBED (test code = 168 mg/dL 70-105 H Performe d by certified GLUBED) ap operator at [facility] [id number] 17:28:00 Test Item Value Reference Range Interpretation Comments GLUBED (test code = 115 mg/dL 70-105 H Performe d by certified GLUBED) ap operator at [facility] COMPREHENSIVE METABOLIC [id number] 12:30:00 Test Item Value Reference Range Interpretation [...] TOTAL (test code = ALKP) CBC W/AUTO [id number] 12:22:00 Test Item Value Reference Range Interpretation [...] code = 0.00 K/mm3 0.0-0.1 N NRBC#) [id number] 11:24:00 Test Item Value Reference Range Interpretation Comments GLUBED (test code = 233 mg/dL 70-105 H Performe d by certified GLUBED) ap operator at [facility] [id number] 07:03:00 Test Item Value Reference Range Interpretation Comments GLUBED (test code = 221 mg/dL 70-105 H Performe d by certified GLUBED) ap operator at [facility] [id number] 20:59:00 Test Item Value Reference Range Interpretation Comments GLUBED (test code = 176 mg/dL 70-105 H Performe d by certified GLUBED) ap operator at [facility] [id number] 16:00:00 Test Item Value Reference Range Interpretation Comments GLUBED (test code = 204 mg/dL 70-105 H Performe d by certified GLUBED) ap operator at [facility] BASIC METABOLIC [id number] 13:27:00 Test Item Value Reference Range Interpretation [...] 9.0 mg/dL 8.5-10.1 N CA) BASIC METABOLIC [id number] 13:26:00 Test Item Value Reference Range Interpretation [...] code = CA) 9.0 mg/dL 8.5-10.1 N [id number] 13:04:00 Test Item Value Reference Range Interpretation Comments GLUBED (test code = 241 mg/dL 70-105 H Performe d by certified GLUBED) ap operator at [facility]2020-05-29 06:22:00 Test Item Value Reference Range Interpretation Comments GLUBED (test code = 218 mg/dL 70-105 H Performe d by certified GLUBED) ap operator at [facility]2020-05-28 20:52:00 Test Item Value Reference Range Interpretation Comments GLUBED (test code = 189 mg/dL 70-105 H Performe d by certified GLUBED) ap operator at [facility]2020-05-28 16:02:00 Test Item Value Reference Range Interpretation Comments GLUBED (test code = 253 mg/dL 70-105 H Performe d by certified GLUBED) ap operator at [facility] [id number] 13:35:00 Test Item Value Reference Range Interpretation Comments GLYCOSYLATED 13.3 % <5.7 H SUGGESTED DIAG NOSIS HEMOGLOBIN (HA1C) INTERPRETA TION (test code = GLYHGB) ------- Nor mal: <5.7% Prediabet es: 5.7 - 6.4% Diabeti c: >/= 6.5%* DUE TO ME THOD REVISION, REFER ENCE RANGE HAS BEEN UPDATED * ESTIMATED AVERAGE 335 MG/DL <126 GLUCOSE (test code = EAG) [id number] 13:13:00 Test Item Value Reference Range Interpretation Comments GLUBED (test code = 245 mg/dL 70-105 H Performe d by certified GLUBED) ap operator at [facility]2020-05-28 08:01:00 Test Item Value Reference Range Interpretation Comments GLUBED (test code = 352 mg/dL 70-105 H Performe d by certified GLUBED) ap operator at [facility] UA RFLX MICROSCOPIC [id number] 07:45:00 Test Item Value Reference Range Interpretation Comments UA COLOR (test code = LT YELLOW YELLOW COLU) UA APPEARANCE (test CLEAR CLEAR code = APPU) UA GLUCOSE DIPSTICK >1000 mg/dl NORMAL URGENT V ALUE---- (test code = DGLUU) RESULT C CHRISTINO AND READ BACK Ean ARCOS [id number] 10/13/19 . Ebony Tan A UA BILIRUBIN DIPSTICK NEGATIVE mg/dl NEGATIVE [...] culture: Dysuria/FrequencyURINE SOURCE: CLEAN CATCH URINEBASIC METABOLIC [id number] 06:25:00 Test Item Value Reference Range Interpretation [...] = 10.1 mg/dL 8.5-10.1 N CA) LIVER [id number] 06:25:00 Test Item Value Reference Range Interpretation [...] 69 U/L 50-136 N code = ALKP) [id number] 06:25:00 Test Item Value Reference Range Interpretation Comments LIPASE (test code = LIP) 68 U/L 73-393 L [id number] 06:25:00 Test Item Value Reference Range Interpretation Comments TROPONIN-I (test <0.015 ng/ml 0.00-0.045 N GUIDELINES: 0.08 - 0.09 code = TROPI) Indeterminate0 .10 Risk Stratification Limit: Suggest sequent ial testing0.60 - 1 .50 AMI cutoff: Myocard ial Injury by WHO criteria CBC W/AUTO [id number] 06:04:00 Test Item Value Reference Range Interpretation [...] 0.00 K/mm3 0.0-0.1 N NRBC#) UR PORPHYRINS [id number] 10:50:00 Test Item Value Reference Range Interpretation Comments UR PORPHYRINS QUANT (test SENT TO REF LAB code = PORUQT) GH=9672 MLS/[id number] 08:47:00 Test Item Value Reference Range Interpretation Comments GLUBED (test code = 220 mg/dL 70-105 H Performe d by certified GLUBED) ap operator at [facility] BASIC METABOLIC [id number] 07:05:00 Test Item Value Reference Range Interpretation [...] code = 8.0 mg/dL 8.5-10.1 L CA) [id number] 07:05:00 Test Item Value Reference Range Interpretation Comments PHOSPHOROUS (test code = PHOS) 1.8 mg/dL 2.5-4.9 L CBC W/AUTO [id number] 06:11:00 Test Item Value Reference Range Interpretation [...] code = 0.00 K/mm3 0.0-0.1 N NRBC#) [id number] 20:43:00 Test Item Value Reference Range Interpretation Comments GLUBED (test code = 117 mg/dL 70-105 H Performe d by certified GLUBED) ap operator at [facility] [id number] 16:49:00 Test Item Value Reference Range Interpretation Comments GLUBED (test code = 163 mg/dL 70-105 H Performe d by certified GLUBED) ap operator at [facility] [id number] 11:36:00 Test Item Value Reference Range Interpretation Comments GLUBED (test code = 171 mg/dL 70-105 H Performe d by certified GLUBED) ap operator at [facility] [id number] 07:20:00 Test Item Value Reference Range Interpretation Comments GLUBED (test code = 198 mg/dL 70-105 H Performe d by certified GLUBED) ap operator at [facility] BASIC METABOLIC [id number] 07:20:00 Test Item Value Reference Range Interpretation [...] code = 8.6 mg/dL 8.5-10.1 N CA) [id number] 07:20:00 Test Item Value Reference Range Interpretation Comments PHOSPHOROUS (test code = PHOS) 2.2 mg/dL 2.5-4.9 L CBC W/AUTO [id number] 06:35:00 Test Item Value Reference Range Interpretation [...] code = 0.00 K/mm3 0.0-0.1 N NRBC#) [id number] 21:16:00 Test Item Value Reference Range Interpretation Comments GLUBED (test code = 123 mg/dL 70-105 H Performe d by certified GLUBED) ap operator at [facility] [id number] 18:31:00 Test Item Value Reference Range Interpretation Comments GLURADHA (test code = 171 mg/dL 70-105 H Performe d by certified GLUBED) ap operator at [facility] - CT ABD PELVIS [id number] 16:22:00 Name: RADHA CARPENTER [facility] : 1980 Age/S: 38 / M [address] [place] [address] RoadUnit #: [id number] Loc: [place] [address] Phys: Josh Norwood Acct: [id number] Dis Date: Status: ADM IN PHONE #: [phone] Exam Date: 06/15/2019 1551 FAX #: [phone] Reason: ABD PAIN EXAMS: CPT CODE: [id number] CT ABD PELVIS W/CONT 96717 EXAMINATION: - CT ABD PELVIS W/CONT.LOCATION: 42. HISTORY: Abdominal pain, gastroparesis, cholecystectomy, diabetes. [...] use of iterative reconstruction technique. FINDINGS: Visualized lungbases demonstrate dependent changes, left greater than right [...] 1 Signed Report (CONTINUED) Name: RADHA CARPENTER [facility] : 1980 Age/S: 38 / M [address] [place] [address] Unit #: [id number] Loc: [place], [place] [address] Phys: Josh Norwood Acct: [id number] Dis Date: Status: ADM IN PHONE #: [phone] Exam Date:06/15/2019 1558 FAX #: [phone] Reason: ABD PAIN EXAMS: CPT CODE: [id number] CT ABD PELVIS W/CONT 37114 (Continued) at 1622 Reported and signed by: VERITO GM M.D. CC: Galindo Chris MD Technologist:Anmol Hardy, RT(R) CT (R) CTDI: 10.14 DLP: 586.96 Trnscb Date/Time: 06/15/2019 (1621) t.SDR.ANS4 Orig Print D/T: S: 06/15/2019 (6501) PAGE 2 Signed ReportUR CREATININE [id number] 14:23:00 Test Item Value Reference Range Interpretation Comments UR CREATININE RANDOM (test code = 37.0 mg/dL CREATU) [id number] 11:48:00 Test Item Value Reference Range Interpretation Comments GLUBED (test code = 171 mg/dL 70-105 H Performe d by certified GLUBED) ap operator at [facility] [id number] 06:29:00 Test Item Value Reference Range Interpretation Comments GLUBED (test code = 191 mg/dL 70-105 H Performe d by certified GLUBED) ap operator at [facility] - XR ABDOMEN 1V (KUB)2019-06-14 22:36:00 [facility] Name: RADHA CARPENTER [address] [place] [address] [place]: [place] [address] : 1980 Age: 38 Sex: M Acct: [id number] Loc: HJudy515 A PHONE #: [phone] Exam Date: 06/14/2019 Status: ADM IN FAX #: [phone] Radiology No: Unit No: [id number] Reason: ABD PAIN EXAMS: CPT CODE: [id number] XR ABDOMEN 1V (KUB) 58700 Fluoro Time: DAP (Gy m2): Air Kerma (mGy): AP VIEWS OF THE ABDOMEN AND PELVIS LOCATION: R16 CLINICAL HISTORY: Abdominal pain. COM PARISON: Abdominal radiographs 04/28/2018. FINDINGS: A normal bowel gas pattern is seen throughout the abdomen. No bowel dilatation or free air is found. Left- sided spinal stimulator catheter is noted, unchanged. Cholecystectomy clips are redemonstrated. No acute bony abnormality is seen. The pelvis is intact. IMPRESSION: No acute findings in the abdomen or pelvis. at 2236 Reported and signed by: MEAGAN GONZALES MD CC: Galindo Chris MD Technologist: Jh Johnson, RT (R); Denisha Gallegos RT (R) Transcribed Date/Time: 06/14/2019 (626) t.SANDRAR.DAVIDL Orig Print D/T: S: 06/14/2019 (1840) PAGE 1 Signed [id number] 20:44:00 Test Item Value Reference Range Interpretation Comments GLUBED (test code = 188 mg/dL 70-105 H Performe d by certified GLUBED) ap operator at [facility]2020-01-28 16:32:00 Test Item Value Reference Range Interpretation Comments GLUBED (test code = 180 mg/dL 70-105 H Performe d by certified GLUBED) ap operator at [facility]2020-01-28 11:37:00 Test Item Value Reference Range Interpretation Comments GLUBED (test code = 223 mg/dL 70-105 H Performe d by certified GLUBED) ap operator at [facility]2020-01-27 21:58:00 Test Item Value Reference Range Interpretation Comments GLUBED (test code = 135 mg/dL 70-105 H Performe d by certified GLUBED) ap operator at [facility]2020-01-27 19:17:00 Test Item Value Reference Range Interpretation Comments GLUBED (test code = 162 mg/dL 70-105 H Performe d by certified GLUBED) ap operator at [facility]2020-01-27 19:17:00 Test Item Value Reference Range Interpretation Comments GLUBED (test code = 213 mg/dL 70-105 H Performe d by certified GLUBED) ap operator at [facility] - XR CHEST 1 [id number] 18:19:00 [facility] Name: RADHA CARPENTER [address] [facility] Phys: Gilson Arriaga MD [place], [place] [address] : 1980 Age: 38 Sex: M Acct: [id number] Loc: [place] PHONE #: [phone] Exam Date: 06/13/2019 Status: REG ER FAX #: [phone] Radiology No: Unit No: [id number] Reason: pain EXAMS: CPT CODE: [id number] XR CHEST 1 V 14373 Fluoro Time: DAP (Gy m2): Air Kerma (mGy): -XR CHEST 1 V, 06/13/2019 5:18 PM Reason For Examination: pain Comparison: June 01, 2019 Location:R16 Findings LUNGS: No definite pulmonary edema or consolidation, although exam findings limited by low lung volumes PLEURA: No pleural effusions CARDIOMEDIASTINAL SILHOUETTE Unremarkable IMPRESSION: No plain film evidence of acute cardiopulmonary abnormality within the given limitations above Elec tronically Signed by BURT OLIVIER M.D. on 06/13/2019 at 1819 Reported and signed by:BURT OLIIVER M.D. CC: Galindo Chris MD Technologist: Denisha Gallegos, RT (R) TranscribedDate/Time: 06/13/2019 (1818) t.SANDRAR.SR31 Orig Print D/T: S: 06/13/2019 (1821) PAGE 1 Signed Report COMPREHENSIVE METABOLIC [id number] 18:01:00 Test Item Value Reference Range Interpretation [...] 50-136 N TOTAL (test code = ALKP) [id number] 18:01:00 Test Item Value Reference Range Interpretation Comments LIPASE (test code = LIP) 69 U/L 73-393 L CBC W/AUTO [id number] 17:46:00 Test Item Value Reference Range Interpretation [...] code = 0.00 K/mm3 0.0-0.1 N NRBC#) [id number] 16:38:00 Test Item Value Reference Range Interpretation Comments GLUBED (test code = 195 mg/dL 70-105 H Performe d by certified GLUBED) ap operator at [facility] [id number] 11:47:00 Test Item Value Reference Range Interpretation Comments GLUBED (test code = 254 mg/dL 70-105 H Performe d by certified GLUBED) ap operator at [facility] UA RFLX MICROSCOPIC [id number] 10:08:00 Test Item Value Reference Range Interpretation [...] code = GLUBED) 150 mg/dL 70-105 H [id number] 22:49:00 Test Item Value Reference Range Interpretation Comments GLUBED (test code = 214 mg/dL 70-105 H Performe d by certified GLUBED) ap operator at [facility] UA RFLX MICROSCOPIC [id number] 18:28:00 Test Item Value Reference Range Interpretation [...] Dysuria/FrequencyURINE SOURCE: STRAIGHT CATHCOMMENT: PER DR. KELSEY [id number] 16:35:00 Test Item Value Reference Range Interpretation Comments GLUBED (test code = 143 mg/dL 70-105 H Performe d by certified GLUBED) ap operator at [facility] [id number] 14:55:00 Test Item Value Reference Range Interpretation Comments GLUBED (test code = 204 mg/dL 70-105 H Performe d by certified GLUBED) ap operator at [facility] [id number] 10:20:00 Test Item Value Reference Range Interpretation Comments GLUBED (test code = 159 mg/dL 70-105 H Performe d by certified GLUBED) ap operator at [facility] [id number] 06:47:00 Test Item Value Reference Range Interpretation Comments GLYCOSYLATED HEMOGLOBIN (HA1C) 12.2 % 4.2-6.3 H (test code = GLYHGB) ESTIMATED AVERAGE GLUCOSE (test 303 MG/DL <126 code = EAG) COMPREHENSIVE METABOLIC [id number] 06:35:00 Test Item Value Reference Range Interpretation [...] average [address] [id number] 06:35:00 Test Item Value Reference Range Interpretation Comments LIPASE (test code = LIP) 51 U/L 73-393 L CBC W/AUTO [id number] 06:10:00 Test Item Value Reference Range Interpretation [...] code = 0.00 K/mm3 0.0-0.1 N NRBC#) [id number] 00:01:00 Test Item Value Reference Range Interpretation Comments MERCEDEZ (test code = 191 mg/dL 70-105 H Performe d by certified GLUBED) ap operator at [facility] - CT ABD PELVIS W/O [id number] 17:17:00 Name: RADHA CARPENTER [facility] : 1980 Age/S: 38 / [id number] Loc: [place] [address] Phys: Nathan Wolf Jr, MD Acct: [id number] Dis Date: Status: ADM IN PHONE #: [phone] Exam Date: 06/01/2019 1646 FAX #: [phone] Reason: ABD APIN EXAMS: CPT CODE: [id number] CT ABD PELVIS W/O CONT 50818 - CT ABD PELVIS W/O CONT CLINICAL HISTORY: Abdominal pain. COMPARISON: May 20, 2019 TECHNIQUE: Sequential axial images of abdomen and pelvis without contrast with sagittal and coronal reconstructions. This CT exam was performed using one or more of the following dose reduction techniques: Automated exposure control; Adjustment of the mA a nd/or kV according to patient size; Use of iterative reconstruction technique. FINDINGS: There is limited evaluation of the solid and hollow visceral organs without the use of IV contrast. Dependent atelectasis is seen bilaterally. There is more groundglass nodular opacities at the left lung base andearly infiltrate is not excluded. Heart size is normal with trace pericardial effusion. Patient is status post cholecystectomy. The liver, spleen, pancreas and adrenal glands are unremarkable. Both kidneys appear symmetric in size without hydronephrosis or obstructive nephrolithiasis. Bowel loops are u nopacified and decompressed. Small bowel loops are normal in caliber. The stomach appears decompressed which accentuates wall thickness. There appears to be stimulator leads extending to the distal anterior gastric wall. There appear to be several thickened air-filled small bowel loops in the left upper quadrant. The appendix is unremarkable. The distal and sigmoid colon are fully decompressed. Thereis no free air, free fluid or definite [...] abnormality seen. IMPRESSION: PAGE 1 Signed Report (CONTINUED)Name: RADHA CARPENTER [facility] : 1980 Age/S: 38 / M [address] [facility] Unit #: [id number] Loc: [place] [address] Phys: Nathan Wolf Jr, MD Acct: [id number] Dis Date:Status: ADM IN PHONE #: [phone] Exam Date: 06/01/2019 1646 FAX #: [phone] Reason: ABD APIN EXAMS: CPT CODE: [id number] CT ABD PELVIS W/O CONT 23285 (Continued) No evidence of intestinal or urinary [...] (R) CTDI: 10.33 DLP: 624.19 Trnscb Date/Time: 06/01/2019(1717) [id number] Orig Print D/T: S: 06/01/2019 (1720) PAGE 2 Signed Report- XR CHEST 1 [id number] 14:37:00 [facility] Name: RADHA CARPENTER [address] [facility] Phys: Nathan Wolf Jr, MD [place], [place] [address] : 1980 Age: 38 Sex: M Acct: [id number] Loc: [place] PHONE #: [phone] Exam Date: 06/01/2019 Status: REG ER FAX #: [phone] Radiology No: Unit No: [id number] Reason: chest pain EXAMS: CPT CODE: [id number] XR CHEST 1 V 69362 Fluoro Time: DAP (Gy m2): Air Kerma (mGy): Location code: R 16 Chest 1 view Indication: chest pain. Comparison: None Findings: The heart and mediastinum are not remarkable. Costophrenic angles are clear. Lungs are clear. Bone is unremarkable for age. Impression: 1. No radiographic evidence of acute cardiopulmonary disease. ElectronicallySigned by RAMAN BROWN M.D. on 06/01/2019 at 1430 Reported and signed by: RAMAN BROWN M.D. CC: Galindo Chris MD Technologist: Anton Martinez, RT(R) Transcribed Date/Time: 06/01/2019 (9887) t.SDR.DRB1 Orig Print D/T: S: 06/01/2019 (1615) PAGE 1 Signed ReportPROTHROMBIN [id number] 14:25:00 Test Item Value Reference Interpretation Comments [...] with mechanical prosthetic heart valves. THROMBOPLASTIN TIME [id number] 14:25:00 Test Item Value Reference Range Interpretation Comments THROMBOPLASTIN TIME PARTIAL 24.0 seconds 22.8-34.4 N (test code = PTT) BASIC METABOLIC [id number] 14:21:00 Test Item Value Reference Range Interpretation [...] code = 10.2 mg/dL 8.5-10.1 H CA) [id number] 14:21:00 Test Item Value Reference Range Interpretation Comments LIPASE (test code = LIP) 68 U/L 73-393 L [id number] 14:21:00 Test Item Value Reference Range Interpretation Comments TROPONIN-I (test <0.015 ng/ml 0.00-0.045 N GUIDELINES: 0.08 - 0.09 code = TROPI) Indeterminate0 .10 Risk Stratification Limit: Suggest sequent ial testing0.60 - 1 .50 AMI cutoff: Myocard ial Injury by WHO criteria CBC W/AUTO [id number] 14:11:00 Test Item Value Reference Range Interpretation [...] code = 0.00 K/mm3 0.0-0.1 N NRBC#) [id number] 09:36:00 Test Item Value Reference Range Interpretation Comments GLUBED (test code = 314 mg/dL 70-105 H Performe d by certified GLUBED) ap operator at [facility] [id number] 09:36:00 Test Item Value Reference Range Interpretation Comments GLUBED (test code = 288 mg/dL 70-105 H Performe d by certified GLUBED) ap operator at [facility] BASIC METABOLIC [id number] 06:10:00 Test Item Value Reference Range Interpretation [...] = 9.4 mg/dL 8.5-10.1 N CA) LIVER [id number] 06:10:00 Test Item Value Reference Range Interpretation [...] 68 U/L 50-136 N code = ALKP) [id number] 06:10:00 Test Item Value Reference Range Interpretation Comments TRIGLYCERIDES (test code = TRIG) 225 mg/dL 30-150 H [id number] 06:10:00 Test Item Value Reference Range Interpretation Comments LIPASE (test code = LIP) 56 U/L 73-393 L BETA [id number] 06:10:00 Test Item Value Reference Range Interpretation Comments BETA HYDROBUTYRATE (test code = 2.70 mmol/L 0.00-0.28 H BETHYD) BASIC METABOLIC [id number] 06:03:00 Test Item Value Reference Range Interpretation [...] = CA) 9.4 mg/dL 8.5-10.1 N LIVER [id number] 06:03:00 Test Item Value Reference Range Interpretation [...] TOTAL (test U/L 50-136 code = ALKP) [id number] 06:03:00 Test Item Value Reference Range Interpretation Comments TRIGLYCERIDES (test code = TRIG) mg/dL 30-150 [id number] 06:03:00 Test Item Value Reference Range Interpretation Comments LIPASE (test code = LIP) U/L 73-393 BETA [id number] 06:03:00 Test Item Value Reference Range Interpretation Comments BETA HYDROBUTYRATE (test code = mmol/L 0.00-0.28 BETHYD) CBC W/AUTO [id number] 05:59:00 Test Item Value Reference Range Interpretation [...] 0.00 K/mm3 0.0-0.1 N NRBC#) CBC W/AUTO [id number] 06:20:00 Test Item Value Reference Range Interpretation [...] ESTIMATE (test code = INCREASED ADEQUATE PLTEST) [id number] 04:38:00 Test Item Value Reference Range Interpretation Comments GLUBED (test code = 379 mg/dL 70-105 H Performe d by certified GLUBED) ap operator at [facility] - CT ABD PELVIS W/O [id number] 00:16:00 Name: JAYDENRADHA Arron [facility] : 1980 Age/S: 38 / [address] [id number] Loc: [place] [address] Phys: Francisco J,Emir DO Acct: [id number] Dis Date: Status: REG ER PHONE #: [phone] Exam Date: 05/20/2019 1455 FAX #: [phone] Reason: PAIN EXAMS: CPT CODE: [id number] CT ABD PELVIS W/O CONT 82820 LOCATION: [facility] EXAM: - CT ABD PELVIS W/O CONT [...] bowel dilatation. Normal caliber appendix is identified. Nofocal fluid collections, ascites or PAGE 1 Signed Report (CONTINUED) Name: RADHA CARPENTER [facility] : 1980 Age/S: 38 / M [address] Unit #: [id number] Loc: [place] [address] Phys: Emir Marx Acct: [id number] Dis Date: Status: REG ER PHONE #: [phone] Exam Date: 05/20/2019 2356 FAX #: [phone] Reason: PAIN EXAMS: CPT CODE: [id number] CT ABD PELVISW/O CONT 45810 (Continued) evidence of pneumoperitoneum. Bones and soft tissues: The osseous structures are intact. Appliance overlies the left abdominal wall with lead tips anterior to the distal gastric body. IMPRESSION: Essentially unremarkable noncontrast CT examination of the abdomen and pelvis without evidence of acute intra-abdominal pathology. Electronically Signed by ISSA MG MD. on 08/2019 at 0016 Reported and signed by: ISSA MG MD. CC: [facility] ; Galindo Chris MD Technologist:Raman Aburto RT CTDI: 10.59 DLP: 623.67 Trnscb Date/Time: 05/21/2019 (0016) t.SDR.NS15 OrigPrint D/T: S: 05/21/2019 (0019) PAGE 2 Signed ReportUA RFLX MICROSCOPIC [id number] 00:07:00 Test Item Value Reference Range Interpretation [...] culture: Dysuria/FrequencyURINE SOURCE: CLEAN CATCH URINEBASIC METABOLIC [id number] 23:38:00 Test Item Value Reference Range Interpretation [...] 10.0 mg/dL 8.5-10.1 N CA) RECOLLECTION HEMOLYZEDLIVER [id number] 23:38:00 Test Item Value Reference Range Interpretation [...] U/L 50-136 N code = ALKP) RECOLLECTION [id number] 23:38:00 Test Item Value Reference Range Interpretation Comments LIPASE (test code = LIP) 42 U/L 73-393 L RECOLLECTION HEMOLYZEDCBC W/AUTO [id number] 23:03:00 Test Item Value Reference Range Interpretation [...] code = 0.00 K/mm3 0.0-0.1 N NRBC#) Notes Date/Time Note Provider Source 2020-08-13 17:57:00-00:00 [facility] EMERGENCY PROVIDER REPORT REPORT#:[id number] REPORT STATUS: Signed DATE:08/13/20 TIME: 1756 PATIENT: RADHA CARPENTER UNIT #: [id number] ROOM/BED: AGE: 39 SEX: M PCP PHYS: Galindo Chris MD SERVICE AUTHOR: Tony Noriega MD * ALL edits or amendments must be made on the [employer]/computer document * Tony Noriega 08/13/201756: HPI-General Illness Free Text HPI Notes Free Text HPI Notes Patient is a 39-year-old mal e who comes in with severe epigastric pain, he said that it is a stabbing pain r adiating to his back, he also mentioned that he has had multiple episodes of vomiting since yesterda y he has a history of gastroparesis, he is a type I diabetic. General Initial Greet Date/Time 08/13/201750 Presentation Chief Complaint Abdominal pain, Vomiting Review of Systems ROS Statements All systems rev neg except as marked. (ABD PAIN/ VOMITING) Past Medical History - Adult Stated Complaint ABD PAIN Home Medications Active Scripts SUCRALFATE (CARAFATE 1 GM/10 ML) 1 GM PO AC HS SUCRALFATE (CARAFATE 1 GM/10 ML) 1 GM PO AC HS #250 ML Prov: 10/17/19 ONDANSETRON (ZOFRAN) 4 MG PO Q6H PRN PRN PRN VANDANA SEA/VOMITING ONDANSETRON (ZOFRAN) 4 MG PO Q6H PRN PRN PRN NA USEA/VOMITING #12 TABS Prov: 04/18/20 ACETAMINOPHEN (TYLENOL) 1,000 MG PO Q6H PRN PRN prn pain ACETAMINOPHEN (TYLENOL) 1,000 MG PO Q6H PRN PRN prn pain #20 TABS Prov: 04/18/20 CLINDAMYCIN HCL (CLEOCIN) 300 MG PO Q6H CLINDAMYCIN HCL (CLEOCIN) 300 MG PO Q6H #40 CAP S Prov: 06/14/20 ONDANSETRON ODT (ZOFRAN ODT) 4 MG PO Q6H PRN PRN NAUSEA/VOMITING ONDANSETRON ODT (ZOFRAN ODT) 4 MG PO Q6H PRN KY N NAUSEA/VOMITING #15 TABS Prov: 06/14/20 ACETAMINOPHEN/CODEINE (TYLENOL WITH CODE INE #3 300/30 MG) 1 TAB PO Q4H PRN PRN ACUTE PAIN ACETAMINOPHEN/CODEINE (TYLENOL WITH CODEINE #3 300/30 MG) 1 TAB PO Q4H PRN PRN ACUTE PAIN #15 TABS Prov: 06/14/20 Reported Medications LISINOPRIL/HCTZ (ZESTORETIC 10/12.5 MG) 1 TAB PO DAILY NORTRIPTYLINE (PAMELOR) 50 MG PO BEDTIME FAMOTIDINE (PEPCID) 20 MG PO BEDTIME SIMVASTATIN (ZOCOR) 10 MG PO BEDTIME ZOLPIDEM (AMBIEN) 10 MG PO BEDTIME INSULIN GLARGINE (LANTUS) INSULIN ASPART (NovoLOG) Past Medical History: Reports: Diabetes mellitus. Additional Medical History Past medical history: Reports: Diabetes mellitus. Additional medical history: Reports chronic abdominal pain and gastroparesi s Past Surgical History: Reports: Cholecystectomy. Additional Surgical History Past surgical history: Reports: Cholecystectomy. Additional surgical history: Reports having a nerve stimulator Additional Family History Reviewed, Noncontributory Alcohol Use Denies EtOH use Drug Use Denies recreational drugs Other Social History Disabled, Good social suppo rt Physical Exam Vital Signs Review of Vital Signs Reviewed Basic Physical Exam Basic PE HEAD: Atraumatic/NC, EYES: PERRL, conj clear, ENT: Membranes moist, NECK: Supple, RESP: No resp distress, CV: Reg ra te rhythm, EXT: No gross abnormality, SKIN: No rashes, warm/dry, NEURO: a lert oriented, NEURO: gross movement NL Physical Exam Abdomen/GI Tenderness/Guarding/Rebound Tender epigastric. Interpretation Diagnostics Lab Results Interpretation Results Laboratory Tests 08/13/20 1800: [Embedded Image Not Available] Laboratory Tests: 08/13 08/13 08/13 1848 1848 1800 Chemistry Lactic Acid (0.4 - 2.0 mmol/l) 2.0 Toxicology Urine Opiates Screen (NEGATIVE ng/ml) NEGATIVE Urine Barbiturates (NEGATIVE ng/ml) NEGATIVE Ur Phencyclidine Scrn (NEGATIVE ng/ml) NEGATIVE Ur Amphetamine Screen (NEGATIVE ng/dl) NEGATIVE U Benzodiazepines Scrn (NEGATIVE ng/ml) NEGATIV E Urine Cocaine Screen (NEGATIVE ng/ml) NEGATIVE U Cannabinoids Screen (NEGATIVE ng/ml) NEGATIVE Ketones (NEGATIVE mg/dl) TRACE Urines Urine Color (YELLOW) YELLOW Urine Appearance (CLEAR) CLEAR Urine pH (4.6 - 8.0) 5.5 Ur Specific [place] (1.001 - 1.035) 1.020 Urine Protein (NEGATIVE mg/dl) 30 H Urine Glucose (UA) (NORMAL mg/dl) >=1000 Urine Blood (NEGATIVE /UL) SMALL Urine Nitrite (NEGATIVE) NEGATIVE Urine Bilirubin (NEGATIVE mg/dl) NEGATIVE Urine Urobilinogen (NORMAL mg/dl) 0.2 Ur Leukocyte Esterase (NEGATIVE /UL) TRACE Urine RBC (0 - 5 #/hpf) 3-5 Urine WBC (0 - 5 #/hpf) 3-5 Ur Epithelial Cells (NEG,FEW /hpf) FEW Urine Bacteria (NEGATIVE /hpf) FEW H Urine Comment CLN CATCH 08/13 08/13 1800 1755 Chemistry Sodium (136 - 145 mmol/L) 142 Potassium (3.5 - 5.1 mmol/L) 3.7 Chloride (98 - 107 mmol/L) 104 Carbon Dioxide (21 - 32 mmol/L) 28 BUN (7 - 18 mg/dL) 21 H Creatinine (0.70 - 1.30 mg/dl) 0.91 Estimated GFR (MDRD) (>=60) > 60.00 Glucose (70 - 100 mg/dL) 92 POC Glucose (70 - 105 mg/dL) 89 Calcium (8.5 - 10.1 mg/dL) 9.6 Total Bilirubin (0.2 - 1.0 mg/dL) 0.4 Direct Bilirubin (0.0 - 0.2 mg/dl) 0.11 AST (15 - 37 U/L) 18 ALT (12 - 78 U/L) 45 Alkaline Phosphatase (45 - 117 U/L) 78 Troponin I (<=3.0 pg/ml) 4 Total Protein (6.4 - 8.2 g/dl) 8.5 H Albumin (3.4 - 5.0 g/dl) 4.2 Lipase (73 - 393 U/L) 59 L Hematology WBC (4.5 - 11.0 X10(3)) 9.7 RBC (4.3 - 5.9 X10(6)) 4.65 Hgb (13.5 - 18.0 g/dL) 13.8 Hct (42.0 - 52.0 %) 42.3 MCV (78 - 100 fL) 91.0 MCH (26.0 - 34.0 pg) 29.7 MCHC (30.0 - 37.0 g/dl) 32.6 RDW (11.5 - 14.5 %) 11.8 Plt Count (150 - 350 X10(3)) 335 MPV (8.7 - 11.4 fl) 9.3 Neut % (Auto) (36.0 - 66.0 %) 61.5 Lymph % (Auto) (16 - 50 %) 30.8 Dixie % (Auto) (0.0 - 13.0 %) 7.1 Eos % (Auto) (0.0 - 4.5 %) 0.2 Baso % (Auto) (0.0 - 1.5 %) 0.2 Immature Gran # (Auto) (0.00 - 0.03 X10(3)uL) 0 .02 Absolute Neuts (auto) (1.7 - 7.7 X10(3)) 6.0 Absolute Lymphs (auto) (1.0 - 4.8 X10(3)) 3.0 Absolute Monos (auto) (0.0 - 0.89 X10(3)) 0.7 Absolute Eos (auto) (0.0 - 0.6 X10(3)) 0.0 Absolute Basos (auto) (0.0 - 0.2 X10(3)) 0.0 Immature Gran % (0.0 - 2.0 %) 0.2 RBC Morphology (NORMAL) NO Recent Impressions: CAT SCAN - CT ABD PELVIS W/CONT 08/14 1923 Report Impression - Status: SIGNED Entered: 08/13/20201937 IMPRESSION: No acute abnormality is demonstrated. Impression By: Cori JARA M.D. Lab Imaging Statement Laboratory radiographic studies reviewed and con sidered in the medical decision-making. ECG #1 Interpretation Date 08/13/20 Time 1759 Interpreted by ED physician NL ECG Interpretation Normal sinus rhythm, No ST SANT[facility] Rate 110 Rhythm Tachycardia Re-Evaluation MDM Free Text MDM Notes Free Text MDM Notes Abdominal aortic aneurysm ?Mesenteric ischemia ?Perforation of gastrointest inal tract (including peptic ulcer, bowel, esophagus , or appendix) ?Acute bowel obstruction ?Volvulus ?Ectopic ?Myocardial infarction Appendicitis Acute Cholecystitis Acute Pancreatitis ED Course Medication(s) Ordered Medication(s) Ordered: Cardiovascular Drugs Sig/Sima Start time Last Medication Dose Route Stop Time Status Admin Lidocaine HCl 20 ML X1ED STA 08/13 1943 DCr PO 08/13 194 194 Central Nervous System Agents Sig/Sima Start time Last Medication Dose Route Stop Time Status Admin Acetaminophen 1,000 MG X1ED STA 08/13 1941 DC 0 08/13 PO 08/13 194 194 Ketorolac 30 MG X1ED STA 08/13 1848 DC 08/13 Tromethamine IV 08/13 184 1904 Morphine Sulfate 4 MG X1ED STA 08/13 1753 DC IV 08/13 1754 1803 Diagnostic Agents Sig/Sima Start time Last Medication Dose Route Stop Time Status Admin Iopamidol 0 .STK-MED ONE 08/13 190 DC 08/13 IV 1913 Electrolytic, Caloric, And Yumiko Sig/Sima Start time Last Medication Dose Route Stop Time Status Admin Sodium Chloride 1,000 ML X1ED STA 08/13 1941 DC 08/13 IV 08/14 2039 194 Sodium Chloride 1,000 ML X1ED STA 08/13 1753 DC 08/13 IV 08/13 185 1802 Gastrointestinal Drugs Sig/Sima Start time Last Medication Dose Route Stop Time Status Admin Al Hydrox/Mg Hydrox/ 30 ML X1ED STA 08/13 1943 DC 08/13 Simethicone PO 08/13 194 194 Ondansetron HCl 4 MG X1ED STA 08/13 1753 DC IV 08/13 175 1803 Patient Discharge Departure Vital Signs/Condition Vital Signs First Documented: Result Date Time Pulse Ox 97 08/13 183 B/P 162/89 08/13 183 B/P Mean 113 08/14 1831 O2 Delivery Room air 08/14 1831 Temp 36.8 08/13 183 Pulse 112 08/13 183 Resp 18 08/14 1831 Last Documented: Result Date Time Pulse Ox 100 08/13 2102 B/P 141/74 08/13 2102 B/P Mean 96 08/13 2102 O2 Delivery Room air 08/13 2102 Temp 36.9 08/13 2102 Pulse 80 08/13 2102 Resp 18 08/13 2102 All vital signs available at the time of this en try have been reviewed. Gaby Crum 08/13/201940: Past Medical History - Adult Allergies Coded Allergies: prochlorperazine (From COMPAZINE) (Mild, ITCHING 08/13/20) clonidine (ANXIETY 05/20/19) haloperidol (From HALDOL) (STOMACH ACHE 01/22/20 ) metoclopramide (From REGLAN) (JERKS AND SPASMS 0 12/01/19) Physical Exam Vital Signs Vital Signs First Documented: Result Date Time Pulse Ox 97 08/14 1831 B/P 162/89 08/14 1831 B/P Mean 113 08/14 1831 O2 Delivery Room air 08/14 1831 Temp 36.8 08/14 1831 Pulse 112 08/14 1831 Resp 18 08/14 1831 Last Documented: Result Date Time Pulse Ox 100 08/13 2102 B/P 141/74 08/13 2102 B/P Mean 96 08/13 2102 O2 Delivery Room air 08/13 2102 Temp 36.9 08/13 2102 Pulse 80 08/13 2102 Resp 08/13 Re-Evaluation MDM Free Text MDM Notes Additional Text Helbling - Received turnover at 1900 hr s. 39M h/o gastroparesis with frequent flares x7yrs p/w usual flare sx of epigastric pain/V since . Denies sob/gaona/f/c/ dysuria. Abd s/nd, epigastric ttp without guardi ng/rebound, negative Fisher. MMM. Initial labs unremarkable. CT pendi ng. No vomiting during ED stay to this point. States nausea improved. Tachycardic, no o ther SIRS and no focus of infection noted, sx identical to usual pain flar es, unlikely to benefit from antibiotics. Lactate 2.0, hydration provided. 1947: CT no acute findings. Trop <10 with greate r than 3hrs sx and low HEART/ presentation low suspicion for ACS, no f urther workup indicated per [facility] protocol. Epigastric pain pe rsistent after morphine/ketorolac; maalox/lidocaine/ acetaminophen ordered to further manage pain. 2010: PO dotty without difficulty. Pain persistent , minimal improvement with treatment as above, declined rx for these. Accep ghazala rx for ondansetron. Discussed findings. Patient confirms he can f/u with his PCM Dr. Reich who has been managing his case for the past 7 yrs. States he has not yet spoken to Dr. Reich re: this flar e. Declined referral to GI, states was evaluated by another edge inker uppers who diagnosed "indete rminate" and signed off more than a year ago. Patient Discharge Departure Vital Signs/Condition Condition Improved Clinical Impression Clinical Impression Primary Impression: Epigastric pain Secondary Impressions: High blood pressure Disposition Decision Discharge )( Discharged to Home Yes )( Time 2013 )( Date 08/13/20 Discharge/Care Plan Counseled Regarding Diagnosi s, Lab results, Imaging studies, Need for follow-up, When to return to ED (Auto) Prescriptions Current Visit Scripts ONDANSETRON (ZOFRAN) 4 MG PO Q8H PRN PRN NAUSEA/ VOMTING ONDANSETRON (ZOFRAN) 4 MG PO Q8H PRN PRN NAUSEA /VOMTING #15 TABS Patient Instructions ED Epigastric Pain (Uncerta in Cause), ED PEPTIC ULCER vs GASTRITIS Additional Instructions Call today to make an appoin tment with your primary doctor in the next 1-2 weeks to continue evaluation and management of your sy mptoms. Return to the emergency depa rtment if you have severe abdominal pain, are unable to eat or drink, have a larg e amount of blood in your vomit or stool, are unable to urinate, or have any other concerns. Drink plenty of fluids and get plenty of sleep. Drink frequent small sips of fluids to avoid triggering nausea. Wash your vogel ds frequently including every time you use the bathroom. Eat smaller, more frequent meals rather than a few large meals. Remain sitting or standing upright for at least 30 minutes afte r any meal. Avoid spicy or acidic foods including sodas and coffee. at 0301 RPT #:[id number] END OF REPORT 2020-08-13 17:57:00-00:00 [facility] EMERGENCY PROVIDER REPORT REPORT#:[id number] REPORT STATUS: Signed DATE:08/13/20 TIME: 1756 PATIENT: RADHA CARPENTER UNIT #: [id number] ROOM/BED: AGE: 40 SEX: M PCP PHYS: Galindo Chris MD SERVICE AUTHOR: Tony Noriega MD * ALL edits or amendments must be made on the [employer]/computer document * Tony Noriega 08/13/201756: HPI-General Illness Free Text HPI Notes Free Text HPI Notes Patient is a 39-year-old mal e who comes in with severe epigastric pain, he said that it is a stabbing pain r adiating to his back, he also mentioned that he has had multiple episodes of vomiting since yesterda y he has a history of gastroparesis, he is a type I diabetic. General Initial Greet Date/Time 08/13/201750 Presentation Chief Complaint Abdominal pain, Vomiting Review of Systems ROS Statements All systems rev neg except as marked. (ABD PAIN/ VOMITING) Past Medical History - Adult Stated Complaint ABD PAIN Home Medications Active Scripts SUCRALFATE (CARAFATE 1 GM/10 ML) 1 GM PO AC HS SUCRALFATE (CARAFATE 1 GM/10 ML) 1 GM PO AC HS #250 ML Prov: 10/17/19 ONDANSETRON (ZOFRAN) 4 MG PO Q6H PRN PRN PRN VANDANA SEA/VOMITING ONDANSETRON (ZOFRAN) 4 MG PO Q6H PRN PRN PRN NA USEA/VOMITING #12 TABS Prov: 04/18/20 ACETAMINOPHEN (TYLENOL) 1,000 MG PO Q6H PRN PRN prn pain ACETAMINOPHEN (TYLENOL) 1,000 MG PO Q6H PRN PRN prn pain #20 TABS Prov: 04/18/20 CLINDAMYCIN HCL (CLEOCIN) 300 MG PO Q6H CLINDAMYCIN HCL (CLEOCIN) 300 MG PO Q6H #40 CAP S Prov: 06/14/20 ONDANSETRON ODT (ZOFRAN ODT) 4 MG PO Q6H PRN PRN NAUSEA/VOMITING ONDANSETRON ODT (ZOFRAN ODT) 4 MG PO Q6H PRN [place] N NAUSEA/VOMITING #15 TABS Prov: 06/14/20 ACETAMINOPHEN/CODEINE (TYLENOL WITH CODE INE #3 300/30 MG) 1 TAB PO Q4H PRN PRN ACUTE PAIN ACETAMINOPHEN/CODEINE (TYLENOL WITH CODEINE #3 300/30 MG) 1 TAB PO Q4H PRN PRN ACUTE PAIN #15 TABS Prov: 06/14/20 Reported Medications LISINOPRIL/HCTZ (ZESTORETIC 10/12.5 MG) 1 TAB PO DAILY NORTRIPTYLINE (PAMELOR) 50 MG PO BEDTIME FAMOTIDINE (PEPCID) 20 MG PO BEDTIME SIMVASTATIN (ZOCOR) 10 MG PO BEDTIME ZOLPIDEM (AMBIEN) 10 MG PO BEDTIME INSULIN GLARGINE (LANTUS) INSULIN ASPART (NovoLOG) Past Medical History: Reports: Diabetes mellitus. Additional Medical History Past medical history: Reports: Diabetes mellitus. Additional medical history: Reports chronic abdominal pain and gastroparesi s Past Surgical History: Reports: Cholecystectomy. Additional Surgical History Past surgical history: Reports: Cholecystectomy. Additional surgical history: Reports having a nerve stimulator Additional Family History Reviewed, Noncontributory Alcohol Use Denies EtOH use Drug Use Denies recreational drugs Other Social History Disabled, Good social suppo rt Physical Exam Vital Signs Review of Vital Signs Reviewed Basic Physical Exam Basic PE HEAD: Atraumatic/NC, EYES: PERRL, conj clear, ENT: Membranes moist, NECK: Supple, RESP: No resp distress, CV: Reg ra te rhythm, EXT: No gross abnormality, SKIN: No rashes, warm/dry, NEURO: a lert oriented, NEURO: gross movement NL Physical Exam Abdomen/GI Tenderness/Guarding/Rebound Tender epigastric. Interpretation Diagnostics Lab Results Interpretation Results Laboratory Tests 08/13/20 1800: [Embedded Image Not Available] Laboratory Tests: 08/13 08/13 08/13 1848 1848 1800 Chemistry Lactic Acid (0.4 - 2.0 mmol/l) 2.0 Toxicology Urine Opiates Screen (NEGATIVE ng/ml) NEGATIVE Urine Barbiturates (NEGATIVE ng/ml) NEGATIVE Ur Phencyclidine Scrn (NEGATIVE ng/ml) NEGATIVE Ur Amphetamine Screen (NEGATIVE ng/dl) NEGATIVE U Benzodiazepines Scrn (NEGATIVE ng/ml) NEGATIV E Urine Cocaine Screen (NEGATIVE ng/ml) NEGATIVE U Cannabinoids Screen (NEGATIVE ng/ml) NEGATIVE Ketones (NEGATIVE mg/dl) TRACE Urines Urine Color (YELLOW) YELLOW Urine Appearance (CLEAR) CLEAR Urine pH (4.6 - 8.0) 5.5 Ur Specific [place] (1.001 - 1.035) 1.020 Urine Protein (NEGATIVE mg/dl) 30 H Urine Glucose (UA) (NORMAL mg/dl) >=1000 Urine Blood (NEGATIVE /UL) SMALL Urine Nitrite (NEGATIVE) NEGATIVE Urine Bilirubin (NEGATIVE mg/dl) NEGATIVE Urine Urobilinogen (NORMAL mg/dl) 0.2 Ur Leukocyte Esterase (NEGATIVE /UL) TRACE Urine RBC (0 - 5 #/hpf) 3-5 Urine WBC (0 - 5 #/hpf) 3-5 Ur Epithelial Cells (NEG,FEW /hpf) FEW Urine Bacteria (NEGATIVE /hpf) FEW H Urine Comment CLN CATCH 08/13 08/13 1800 1755 Chemistry Sodium (136 - 145 mmol/L) 142 Potassium (3.5 - 5.1 mmol/L) 3.7 Chloride (98 - 107 mmol/L) 104 Carbon Dioxide (21 - 32 mmol/L) 28 BUN (7 - 18 mg/dL) 21 H Creatinine (0.70 - 1.30 mg/dl) 0.91 Estimated GFR (MDRD) (>=60) > 60.00 Glucose (70 - 100 mg/dL) 92 POC Glucose (70 - 105 mg/dL) 89 Calcium (8.5 - 10.1 mg/dL) 9.6 Total Bilirubin (0.2 - 1.0 mg/dL) 0.4 Direct Bilirubin (0.0 - 0.2 mg/dl) 0.11 AST (15 - 37 U/L) 18 ALT (12 - 78 U/L) 45 Alkaline Phosphatase (45 - 117 U/L) 78 Troponin I (<=3.0 pg/ml) 4 Total Protein (6.4 - 8.2 g/dl) 8.5 H Albumin (3.4 - 5.0 g/dl) 4.2 Lipase (73 - 393 U/L) 59 L Hematology WBC (4.5 - 11.0 X10(3)) 9.7 RBC (4.3 - 5.9 X10(6)) 4.65 Hgb (13.5 - 18.0 g/dL) 13.8 Hct (42.0 - 52.0 %) 42.3 MCV (78 - 100 fL) 91.0 MCH (26.0 - 34.0 pg) 29.7 MCHC (30.0 - 37.0 g/dl) 32.6 RDW (11.5 - 14.5 %) 11.8 Plt Count (150 - 350 X10(3)) 335 MPV (8.7 - 11.4 fl) 9.3 Neut % (Auto) (36.0 - 66.0 %) 61.5 Lymph % (Auto) (16 - 50 %) 30.8 Dixie % (Auto) (0.0 - 13.0 %) 7.1 Eos % (Auto) (0.0 - 4.5 %) 0.2 Baso % (Auto) (0.0 - 1.5 %) 0.2 Immature Gran # (Auto) (0.00 - 0.03 X10(3)uL) 0 .02 Absolute Neuts (auto) (1.7 - 7.7 X10(3)) 6.0 Absolute Lymphs (auto) (1.0 - 4.8 X10(3)) 3.0 Absolute Monos (auto) (0.0 - 0.89 X10(3)) 0.7 Absolute Eos (auto) (0.0 - 0.6 X10(3)) 0.0 Absolute Basos (auto) (0.0 - 0.2 X10(3)) 0.0 Immature Gran % (0.0 - 2.0 %) 0.2 RBC Morphology (NORMAL) NO Recent Impressions: CAT SCAN - CT ABD PELVIS W/CONT 08/14 1923 Report Impression - Status: SIGNED Entered: 08/13/20201937 IMPRESSION: No acute abnormality is demonstrated. Impression By: Cori JARA M.D. Lab Imaging Statement Laboratory radiographic studies reviewed and con sidered in the medical decision-making. ECG #1 Interpretation Date 08/13/20 Time 1759 Interpreted by ED physician NL ECG Interpretation Normal sinus rhythm, No [facility] Rate 110 Rhythm Tachycardia Re-Evaluation MDM Free Text MDM Notes Free Text MDM Notes Abdominal aortic aneurysm ?Mesenteric ischemia ?Perforation of gastrointest inal tract (including peptic ulcer, bowel, esophagus , or appendix) ?Acute bowel obstruction ?Volvulus ?Ectopic ?Myocardial infarction Appendicitis Acute Cholecystitis Acute Pancreatitis ED Course Medication(s) Ordered Medication(s) Ordered: Cardiovascular Drugs Sig/Sima Start time Last Medication Dose Route Stop Time Status Admin Lidocaine HCl 20 ML X1ED STA 08/13 1942 DCr PO 08/13 Central Nervous System Agents Sig/Sima Start time Last Medication Dose Route Stop Time Status Admin Acetaminophen 1,000 MG X1ED STA 08/13 1940 DC 0 08/13 PO 08/13 1941 194 Ketorolac 30 MG X1ED STA 08/13 1848 DC 08/13 Tromethamine IV 08/13 184 1904 Morphine Sulfate 4 MG X1ED STA 08/13 1753 DC IV 08/13 175 1803 Diagnostic Agents Sig/Sima Start time Last Medication Dose Route Stop Time Status Admin Iopamidol 0 .STK-MED ONE 08/13 190 DC 08/13 IV 1913 Electrolytic, Caloric, And Yumiko Sig/Sima Start time Last Medication Dose Route Stop Time Status Admin Sodium Chloride 1,000 ML X1ED STA 08/13 194 DC 08/13 IV 08/13 Sodium Chloride 1,000 ML X1ED STA 08/13 1753 DC 08/13 IV 08/13 185 180 Gastrointestinal Drugs Sig/Sima Start time Last Medication Dose Route Stop Time Status Admin Al Hydrox/Mg Hydrox/ 30 ML X1ED STA 08/13 1943 DC 08/13 Simethicone PO 08/14 1943 194 Ondansetron HCl 4 MG X1ED STA 08/13 1753 DC IV 08/13 175 1803 Patient Discharge Departure Vital Signs/Condition Vital Signs First Documented: Result Date Time Pulse Ox 97 08/13 183 B/P 162/89 08/13 183 B/P Mean 113 08/13 183 O2 Delivery Room air 08/14 1831 Temp 36.8 08/13 183 Pulse 112 08/13 183 Resp 18 08/14 1831 Last Documented: Result Date Time Pulse Ox 100 08/13 2102 B/P 141/74 08/13 2102 B/P Mean 96 08/13 2102 O2 Delivery Room air 08/13 2102 Temp 36.9 08/13 2102 Pulse 80 08/13 2102 Resp 18 08/13 2102 All vital signs available at the time of this en try have been reviewed. Gaby Crum 08/13/201940: Past Medical History - Adult Allergies Coded Allergies: prochlorperazine (From COMPAZINE) (Mild, ITCHING 08/13/20) clonidine (ANXIETY 05/20/19) haloperidol (From HALDOL) (STOMACH ACHE 01/22/20 ) metoclopramide (From REGLAN) (JERKS AND SPASMS 0 12/01/19) Physical Exam Vital Signs Vital Signs First Documented: Result Date Time Pulse Ox 97 08/14 1831 B/P 162/89 08/14 1831 B/P Mean 113 08/14 1831 O2 Delivery Room air 08/14 1831 Temp 36.8 08/14 1831 Pulse 112 08/14 1831 Resp 18 08/14 1831 Last Documented: Result Date Time Pulse Ox 100 08/13 2102 B/P 141/74 08/13 2102 B/P Mean 96 08/13 2102 O2 Delivery Room air 08/13 2102 Temp 36.9 08/13 2102 Pulse 80 08/13 2102 Resp 18 08/13 2102 Re-Evaluation MDM Free Text MDM Notes Additional Text Helbling - Received turnover at 1900 hr s. 39M h/o gastroparesis with frequent flares x7yrs p/w usual flare sx of epigastric pain/V since . Denies sob/gaona/f/c/ dysuria. Abd s/nd, epigastric ttp without guardi ng/rebound, negative Fisher. MMM. Initial labs unremarkable. CT pendi ng. No vomiting during ED stay to this point. States nausea improved. Tachycardic, no o ther SIRS and no focus of infection noted, sx identical to usual pain flar es, unlikely to benefit from antibiotics. Lactate 2.0, hydration provided. 1947: CT no acute findings. Trop <10 with greate r than 3hrs sx and low HEART/ presentation low suspicion for ACS, no f urther workup indicated per [facility] protocol. Epigastric pain pe rsistent after morphine/ketorolac; maalox/lidocaine/ acetaminophen ordered to further manage pain. 2010: PO dotty without difficulty. Pain persistent , minimal improvement with treatment as above, declined rx for these. Accep ghazala rx for ondansetron. Discussed findings. Patient confirms he can f/u with his PCM Dr. Reich who has been managing his case for the past 7 yrs. States he has not yet spoken to Dr. Reich re: this flar e. Declined referral to GI, states was evaluated by another edge in[facility] uppers who diagnosed "indete rminate" and signed off more than a year ago. Patient Discharge Departure Vital Signs/Condition Condition Improved Clinical Impression Clinical Impression Primary Impression: Epigastric pain Secondary Impressions: High blood pressure Disposition Decision Discharge )( Discharged to Home Yes )( Time 2013 )( Date 08/13/20 Discharge/Care Plan Counseled Regarding Diagnosi s, Lab results, Imaging studies, Need for follow-up, When to return to ED (Auto) Prescriptions Current Visit Scripts ONDANSETRON (ZOFRAN) 4 MG PO Q8H PRN PRN NAUSEA/ VOMTING ONDANSETRON (ZOFRAN) 4 MG PO Q8H PRN PRN NAUSEA /VOMTING #15 TABS Patient Instructions ED Epigastric Pain (Uncerta in Cause), ED PEPTIC ULCER vs GASTRITIS Additional Instructions Call today to make an appoin tment with your primary doctor in the next 1-2 weeks to continue evaluation and management of your sy mptoms. Return to the emergency depa rtment if you have severe abdominal pain, are unable to eat or drink, have a larg e amount of blood in your vomit or stool, are unable to urinate, or have any other concerns. Drink plenty of fluids and get plenty of sleep. Drink frequent small sips of fluids to avoid triggering nausea. Wash your vogel ds frequently including every time you use the bathroom. Eat smaller, more frequent meals rather than a few large meals. Remain sitting or standing upright for at least 30 minutes afte r any meal. Avoid spicy or acidic foods including sodas and coffee. at 0301 at 0714 RPT #:[id number] END OF REPORT 2020-06-14 07:58:00-00:00 [facility] [facility] EMERGENCY PROVIDER REPORT REPORT#:[id number] REPORT STATUS: Signed DATE:06/14/20 TIME: 0758 PATIENT: RADHA CARPENTER UNIT #: [id number] ROOM/BED: AGE: 39 SEX: M PCP PHYS: Galindo Chris MD SERVICE AUTHOR: Tony Noriega MD * ALL edits or amendments must be made on the el ectronic/computer document * HPI-General Illness Free Text HPI Notes Free Text HPI Notes Patient is a 39-year-old mal e who is coming in for nausea vomiting and abdominal pain with a history of diabe moo and gastroparesis, he says that he started this morning, no fever no chills no diarrhea no const ipation General Initial Greet Date/Time 06/14/20 0752 Presentation Chief Complaint Abdominal pain, Vomiting Review of Systems ROS Statements All systems rev neg except as marked. (abd pain, n/v) Past Medical History - Adult Stated Complaint ABD PAIN Allergies Coded Allergies: clonidine (ANXIETY 05/20/19) haloperidol (From HALDOL) (STOMACH ACHE 01/22/20 ) metoclopramide (From REGLAN) (JERKS AND SPASMS 0 12/01/19) Home Medications Active Scripts SUCRALFATE (CARAFATE 1 GM/10 ML) 1 GM PO AC HS SUCRALFATE (CARAFATE 1 GM/10 ML) 1 GM PO AC HS #250 ML Prov: 10/17/19 ONDANSETRON (ZOFRAN) 4 MG PO Q6H PRN PRN PRN VANDANA SEA/VOMITING ONDANSETRON (ZOFRAN) 4 MG PO Q6H PRN PRN PRN NA USEA/VOMITING #12 TABS Prov: 04/18/20 ACETAMINOPHEN (TYLENOL) 1,000 MG PO Q6H PRN PRN prn pain ACETAMINOPHEN (TYLENOL) 1,000 MG PO Q6H PRN PRN prn pain #20 TABS Prov: 04/18/20 Reported Medications LISINOPRIL/HCTZ (ZESTORETIC 10/12.5 MG) 1 TAB PO DAILY NORTRIPTYLINE (PAMELOR) 50 MG PO BEDTIME FAMOTIDINE (PEPCID) 20 MG PO BEDTIME SIMVASTATIN (ZOCOR) 10 MG PO BEDTIME ZOLPIDEM (AMBIEN) 10 MG PO BEDTIME INSULIN GLARGINE (LANTUS) INSULIN ASPART (NovoLOG) Physical Exam Vital Signs Vital Signs First Documented: Result Date Time Pulse Ox 98 06/14 826 B/P 165/93 06/14 826 B/P Mean 117 06/14 826 O2 Delivery Room air 06/14 826 Temp 36.7 06/14 826 Pulse 114 06/14 826 Resp 20 06/14 826 Last Documented: Result Date Time Pulse Ox 98 06/14 1049 B/P 137/81 06/14 1049 B/P Mean 99 06/14 1049 O2 Delivery Room air 06/14 1049 Pulse 110 06/14 1049 Resp 18 06/14 1049 Temp 36.7 06/14 0827 Review of Vital Signs Reviewed Basic Physical Exam Basic PE HEAD: Atraumatic/NC, EYES: PERRL, conj clear, ENT: Membranes moist, NECK: Supple, RESP: No resp distress, CV: Reg ra te rhythm Physical Exam Abdomen/GI Tenderness/Guarding/Rebound Tender diffuse. Interpretation Diagnostics Lab Results Interpretation Results Laboratory Tests 06/14/20 0800: [Embedded Image Not Available] Laboratory Tests: 06/14 06/14 06/14 06/14 1126 0906 0906 0800 Chemistry Lactic Acid (0.4 - 2.0 mmol/l) 1.5 2.5 H Toxicology Urine Opiates Screen (NEGATIVE ng/ml) POSITIVE H Urine Barbiturates (NEGATIVE ng/ml) POSITIVE H Ur Phencyclidine Scrn (NEGATIVE ng/ml) NEGATIVE Ur Amphetamine Screen (NEGATIVE ng/dl) NEGATIVE U Benzodiazepines Scrn (NEGATIVE ng/ml) NEGATIV E Urine Cocaine Screen (NEGATIVE ng/ml) NEGATIVE U Cannabinoids Screen (NEGATIVE ng/ml) NEGATIVE Ketones (NEGATIVE mg/dl) NEGATIVE Urines Urine Color (YELLOW) YELLOW Urine Appearance (CLEAR) CLEAR Urine pH (4.6 - 8.0) 5.5 Ur Specific [place] (1.001 - 1.035) 1.020 Urine Protein (NEGATIVE mg/dl) NEGATIVE Urine Glucose (UA) (NORMAL mg/dl) >=1000 Urine Blood (NEGATIVE /UL) TRACE H Urine Nitrite (NEGATIVE) NEGATIVE Urine Bilirubin (NEGATIVE mg/dl) NEGATIVE Urine Urobilinogen (NORMAL mg/dl) 0.2 Ur Leukocyte Esterase (NEGATIVE /UL) NEGATIVE Urine RBC (0 - 5 #/hpf) 0-2 Urine WBC (0 - 5 #/hpf) 0-2 Ur Epithelial Cells (NEG,FEW /hpf) FEW Urine Yeast (NEGATIVE /hpf) FEW H Urine Comment CLN CATCH 06/14 06/14 0800 0753 Chemistry Sodium (136 - 145 mmol/L) 134 L Potassium (3.5 - 5.1 mmol/L) 4.6 Chloride (98 - 107 mmol/L) 100 Carbon Dioxide (21 - 32 mmol/L) 27 BUN (7 - 18 mg/dL) 28 H Creatinine (0.70 - 1.30 mg/dl) 1.20 Estimated GFR (MDRD) (>=60) > 60.00 Glucose (70 - 100 mg/dL) 424 H POC Glucose (70 - 105 mg/dL) 367 H Calcium (8.5 - 10.1 mg/dL) 10.1 Total Bilirubin (0.2 - 1.0 mg/dL) 0.6 Direct Bilirubin (0.0 - 0.2 mg/dl) 0.13 AST (15 - 37 U/L) 17 ALT (12 - 78 U/L) 33 Alkaline Phosphatase (45 - 117 U/L) 84 Troponin I (0.00 - 0.045 ng/ml) <0.017 Total Protein (6.4 - 8.2 g/dl) 8.8 H Albumin (3.4 - 5.0 g/dl) 4.0 Lipase (73 - 393 U/L) 78 Coagulation PT (8.7 - 11.9 SECONDS) 9.6 INR 0.9 APTT (22.8 - 34.4 seconds) 25.4 Hematology WBC (4.5 - 11.0 X10(3)) 9.0 RBC (4.3 - 5.9 X10(6)) 4.47 Hgb (13.5 - 18.0 g/dL) 13.3 L Hct (42.0 - 52.0 %) 41.1 L MCV (78 - 100 fL) 91.9 MCH (26.0 - 34.0 pg) 29.8 MCHC (30.0 - 37.0 g/dl) 32.4 RDW (11.5 - 14.5 %) 11.9 Plt Count (150 - 350 X10(3)) 437 H MPV (8.7 - 11.4 fl) 10.1 Neut % (Auto) (36.0 - 66.0 %) 68.5 H Lymph % (Auto) (16 - 50 %) 24.3 Dixie % (Auto) (0.0 - 13.0 %) 6.6 Eos % (Auto) (0.0 - 4.5 %) 0.1 Baso % (Auto) (0.0 - 1.5 %) 0.2 Immature Gran # (Auto) (0.00 - 0.03 X10(3)uL) 0.03 Absolute Neuts (auto) (1.7 - 7.7 X10(3)) 6.2 Absolute Lymphs (auto) (1.0 - 4.8 X10(3)) 2.2 Absolute Monos (auto) (0.0 - 0.89 X10(3)) 0.6 Absolute Eos (auto) (0.0 - 0.6 X10(3)) 0.0 Absolute Basos (auto) (0.0 - 0.2 X10(3)) 0.0 Immature Gran % (0.0 - 2.0 %) 0.3 RBC Morphology (NORMAL) NO Recent Impressions: CAT SCAN - CT ABD PELVIS W/CONT 06/14 0918 Report Impression - Status: SIGNED Entered: 06/14/2020 0948 IMPRESSION: No acute-appearing imaging abnormality. Impression By: [email or web address] - AUTUMN TRAN M.D. CAT SCAN - CT LOWER EXTRM W/O C RT 06/14 1017 Report Impression - Status: SIGNED Entered: 06/14/2020 1133 IMPRESSION: 1 cm ulceration plantar aspect of the forefoot u ndermining the 3rd and 4th metatarsal head with findings of cellulitis and osteomyelitis of the 5th digit surrounding the DIP joint. No radi opaque foreign body. No soft tissue gas. Advanced atherosclerotic plaque. Location: V20 Impression By: Alejandro FERNANDEZ M.D. Lab Statement Laboratory studies reviewed and considered in [facility] medical decision-making. Imaging Statement Radiographic studies reviewed and considered in the medical decision-making. ECG #1 Interpretation Date 06/14/20 Time 0821 Interpreted by ED physician Rate 114 Rhythm Bradycardia (SINUS TACHYCARDIA), Tachycar yong Re-Evaluation MDM Free Text MDM Notes Free Text MDM Notes Differential diagnoses include gastroenteritis, abdominal pathology like pancreatitis, cholecystitis, hyperglycemia, DKA, episode of exacerbation of gastroparesis I spoke to the physician technical services assistant that works [facility] Dr[facility] Blackwell he was okay with outpatient management, he wa nts the patient to follow-up in their office in 1 to 2 days. ED Course Medication(s) Ordered Medication(s) Ordered: Anti-Infective Agents Sig/Sima Start time Last Medication Dose Route Stop Time Status Admin Clindamycin HCl 50 ML .Q1H 06/14 1030 DC 06/14 IV 06/14 1129 1038 Central Nervous System Agents Sig/Sima Start time Last Medication Dose Route Stop Time Status Admin Hydromorphone HCl 1 MG X1ED STA 06/14 1048 DC 0 06/14 IV 06/14 1049 1054 Hydromorphone HCl 1 MG X1ED STA 06/14 0841 DC 0 06/14 IV 06/14 0842 0855 Morphine Sulfate 2 MG X1ED STA 06/14 0756 DC IV 06/14 0757 0807 Diagnostic Agents Sig/Sima Start time Last Medication Dose Route Stop Time Status Admin Iopamidol 100 ML .STK-MED ONE 06/14 0902 DC IV 06/14 0903 0902 Electrolytic, Caloric, And Yumiko Sig/Sima Start time Last Medication Dose Route Stop Time Status Admin Sodium Chloride 1,000 ML X1ED STA 06/14 0756 DC 06/14 IV 06/14 0855 0807 Gastrointestinal Drugs Sig/Sima Start time Last Medication Dose Route Stop Time Status Admin Ondansetron HCl 4 MG X1ED STA 06/14 0756 DC IV 06/14 0757 0806 Hormones And Synthetic Substit Sig/Sima Start time Last Medication Dose Route Stop Time Status Admin Insulin Human Regular 10 UNIT X1ED STA 06/14 10 07 DC 06/14 SUBQ 06/14 1008 1035 Insulin Human Regular 10 UNIT X1ED 06/14 08 46 DC 06/14 IV 06/14 0847 0857 Patient Discharge Departure Vital Signs/Condition Vital Signs First Documented: Result Date Time Pulse Ox 98 06/14 0827 B/P 165/93 06/14 0827 B/P Mean 117 06/14 0827 O2 Delivery Room air 06/14 0827 Temp 36.7 06/14 0827 Pulse 114 06/14 0827 Resp 20 06/14 0827 Last Documented: Result Date Time Pulse Ox 98 06/14 1049 B/P 137/81 06/14 1049 B/P Mean 99 06/14 1049 O2 Delivery Room air 06/14 1049 Pulse 110 06/14 1049 Resp 18 06/14 1049 Temp 36.7 06/14 0827 All vital signs available at the time of this en try have been reviewed. Condition Stable, Improved Clinical Impression Clinical Impression Primary Impression: Osteomyelitis Secondary Impressions: Gastroparesis, Hyperglyce lenin Time of Impression 1155 Disposition Decision Discharge )( Discharged to Home Yes )( Time 1155 )( Date 06/14/20 Discharge/Care Plan (Auto) Prescriptions Current Visit Scripts CLINDAMYCIN HCL (CLEOCIN) 300 MG PO Q6H CLINDAMYCIN HCL (CLEOCIN) 300 MG PO Q6H #40 CAP S ONDANSETRON ODT (ZOFRAN ODT) 4 MG PO Q6H PRN PRN NAUSEA/VOMITING ONDANSETRON ODT (ZOFRAN ODT) 4 MG PO Q6H PRN [place] N NAUSEA/VOMITING #15 TABS ACETAMINOPHEN/CODEINE (TYLENOL WITH CODE INE #3 300/30 MG) 1 TAB PO Q4H PRN PRN ACUTE PAIN ACETAMINOPHEN/CODEINE (TYLENOL WITH CODEINE #3 300/30 MG) 1 TAB PO Q4H PRN PRN ACUTE PAIN #15 TABS Patient Instructions ED Diabetic Gastroparesis Additional Instructions Thank you for allowing us to participate in your care today, I spoke with the physician technical services assistant that wor ks with your primary care doctor today and they are okay with you following up on an outpatient basi s, please do so as soon as possible, please take your medication as directe d, please come back to the emergency room if worsening symptoms at 1158 RPT #:[id number] END OF REPORT 2020-04-18 10:25:00-00:00 [facility] EMERGENCY PROVIDER REPORT REPORT#:[id number] REPORT STATUS: Signed DATE:04/18/20 TIME: 1025 PATIENT: RADHA CARPENTER UNIT #: [id number] ROOM/BED: AGE: 39 SEX: M PCP PHYS: Galindo Chris MD SERVICE AUTHOR: Kamla Adkins APN * ALL edits or amendments must be made on the el [facility]/computer document * HPI-Abd Pain M Under 40 General Confirmed Patient Yes Initial Greet Date/Time 04/18/[address] CHRIS Presentation Chief Complaint Abdominal pain, Nausea, Vomiting mild Hx Obtained From Patient Sudden in Onset? No Onset Occurred Yesterday Symptom Duration Since onset Free Text HPI Notes Free Text HPI Notes 39-year-old male patient with history of diabete s type 1, gastroparesis, and hypertension is presenting to ED with complaints of left upper quadrant pain, nausea and vomiting onset yesterday. Pat ient denies any shortness of breath or chest pain, denies any fever or sick contacts. Risk-Abd Pain M Under 40 )( Torsion Risk factors reviewed Review of Systems ROS Statements All systems rev neg except as marked. Focused Review of Systems Constitutional Denies: Fever. Respiratory Denies: Cough, non-productive, Shortness of juan r th. Cardiovascular Denies: Chest pain, Palpitations, Syncope. GI Reports: Abdominal pain, Nausea, Vomiting. Male Denies: Dysuria, Penile lesion, Testicular swell ing. Musculoskeletal Denies: Back pain, Extremity pain, Extremity swe lling, Joint pain, Joint swelling, Lumbar pain, Myalgia, Neck pain, Thora cic pain. Past Medical History - Adult Stated Complaint EPIGASTRIC PAIN/ VOMITING Allergies Coded Allergies: clonidine (ANXIETY 05/20/19) haloperidol (From HALDOL) (STOMACH ACHE 01/22/20 ) metoclopramide (From REGLAN) (JERKS AND SPASMS 0 12/01/19) Home Medications Active Scripts SUCRALFATE (CARAFATE 1 GM/10 ML) 1 GM PO AC HS SUCRALFATE (CARAFATE 1 GM/10 ML) 1 GM PO AC HS #250 ML Prov: 10/17/19 Reported Medications LISINOPRIL/HCTZ (ZESTORETIC 10/12.5 MG) 1 TAB PO DAILY NORTRIPTYLINE (PAMELOR) 50 MG PO BEDTIME FAMOTIDINE (PEPCID) 20 MG PO BEDTIME SIMVASTATIN (ZOCOR) 10 MG PO BEDTIME ZOLPIDEM (AMBIEN) 10 MG PO BEDTIME INSULIN GLARGINE (LANTUS) INSULIN ASPART (NovoLOG) Review of Nursing Notes Rev avail, and agree Past Medical History: Reports: Diabetes mellitus. Additional Medical History Past medical history: Reports: Diabetes mellitus. Additional medical history: Reports chronic abdominal pain and gastroparesis Past Surgical History: Reports: Cholecystectomy. Additional Surgical History Past surgical history: Reports: Cholecystectomy. Additional surgical history: Reports having a nerve stimulator Additional Family History Reviewed, Noncontributory Alcohol Use Denies EtOH use Drug Use Denies recreational drugs Other Social History Disabled, Good social suppo rt Physical Exam Vital Signs Vital Signs First Documented: Result Date Time Pulse Ox 98 04/18 1021 B/P 131/69 04/18 1021 B/P Mean 89 04/18 1021 O2 Delivery Room air 04/18 1021 Temp 36.9 04/18 1021 Pulse 118 04/18 1021 Resp 20 04/18 1021 Last Documented: Result Date Time Pulse Ox 99 04/18 1130 B/P 135/97 04/18 1130 B/P Mean 109 04/18 1130 O2 Delivery Room air 04/18 1130 Pulse 100 04/18 1130 Resp 20 04/18 1130 Temp 36.9 04/18 1021 Review of Vital Signs Reviewed Focused PE General/Const General/Const Awake, Alert, No acute di stress, Well appearing, Well developed , Well hydrated, Well nourished, Cooperative, No t toxic appearing MS Head Head Normocephalic Eyes Eyes PERRL, Conjunctiva NL, Eyelids NL Ears/Nose/Throat Ears/Nose/Throat Atraumatic, Airway patent, Muc ous membranes moist, Pharynx NL, Tympanic membs NL, Ext a ud canal NL, Mastoid area NL, Nose exam NL, No sinus tenderness, No facial swelling, Gums/dentition N L Resp/Chest Respiratory/Chest Breath sounds NL, Breath soun ds = bilat, No respiratory distress, No wheezing Cardiovascular Cardiovascular Heart sounds NL, Cap refill not delayed, Peripheral circulation NL Abdomen/GI Abdomen/GI Soft, Non-tender, No guarding, No re bound, BS normoactive, No distention MS Back Back Inspection NL, Full range of motion, Painl ess range of motion Skin Skin Color NL, No rash, Warm, Dry Neurologic Neurologic Oriented X3, Speech NL, Gait NL Interpretation Diagnostics Lab Results Interpretation Results Laboratory Tests 04/18/20 1037: [Embedded Image Not Available] Laboratory Tests: 04/18 04/18 04/18 1042 1037 1036 Chemistry Sodium (136 - 145 mmol/L) 137 Potassium (3.5 - 5.1 mmol/L) 4.5 Chloride (98 - 107 mmol/L) 103 Carbon Dioxide (21 - 32 mmol/L) 27 BUN (7 - 18 mg/dL) 35 H Creatinine (0.67 - 1.17 mg/dL) 1.30 H Estimated GFR (MDRD) (>=60) > 60.00 Glucose (70 - 100 mg/dL) 228 H POC Glucose (70 - 105 mg/dL) 228 H Calcium (8.5 - 10.1 mg/dL) 10.7 H Total Bilirubin (0.2 - 1.0 mg/dl) 0.3 Direct Bilirubin (0.0 - 0.4 mg/dl) 0.11 AST (15 - 37 U/L) 31 ALT (12 - 78 U/L) 43 Alkaline Phosphatase (50 - 136 U/L) 82 Troponin I (0.00 - 0.045 ng/ml) <0.015 Total Protein (6.4 - 8.2 g/dl) 8.7 H Albumin (3.4 - 5.0 g/dl) 4.2 Lipase (73 - 393 U/L) 56 L Hematology WBC (4.5 - 11.0 X10(3)) 9.5 RBC (4.3 - 5.9 X10(6)) 4.88 Hgb (13.5 - 18.0 g/dL) 14.4 Hct (42.0 - 52.0 %) 42.5 MCV (78 - 100 fl) 87.1 MCH (26.0 - 34.0 pg) 29.5 MCHC (30.0 - 37.0 g/dl) 33.9 RDW (11.5 - 14.5 %) 12.8 Plt Count (150 - 350 X10(3)) 325 MPV (8.7 - 11.4 fl) 10.1 Neut % (Auto) (36.0 - 66.0 %) 64.0 Lymph % (Auto) (16.0 - 50.0 %) 27.5 Dixie % (Auto) (0.0 - 13.0 %) 7.3 Eos % (Auto) (0.0 - 4.5 %) 0.6 Baso % (Auto) (0.0 - 1.5 %) 0.3 Immature Gran # (Auto) (0.00 - 0.03 X10(3)uL) 0 .03 Absolute Neuts (auto) (1.70 - 7.70 X10(3)) 6.09 Absolute Lymphs (auto) (0.70 - 4.00 X10(3)) 2.6 2 Absolute Monos (auto) (0.00 - 0.89 X10(3)) 0.70 Absolute Eos (auto) (0.00 - 0.60 X10(3)) 0.06 Absolute Basos (auto) (0.00 - 0.20 X10(3)) 0.03 Absolute Nucleated RBC (0.0 - 0.1 K/mm3) 0.00 Immature Gran % (0.0 - 2.0 %) 0.3 Nucleated RBC % (0 - 0.2 %) 0.0 Toxicology Ketones (NEGATIVE mg/dl) NEGATIVE Urines Urine Color (YELLOW) YELLOW Urine Appearance (CLEAR) CLEAR Urine pH (4.6 - 8.0) 5.5 Ur Specific [place] (1.001 - 1.035) 1.023 Urine Protein (NEGATIVE mg/dl) 20 Urine Glucose (UA) (NORMAL mg/dl) >1000 Urine Blood (NEGATIVE /UL) TRACE Urine Nitrite (NEGATIVE) NEGATIVE Urine Bilirubin (NEGATIVE mg/dl) NEGATIVE Urine Urobilinogen (NORMAL mg/dl) NORMAL Ur Leukocyte Esterase (NEGATIVE /UL) NEGATIVE Urine RBC (0 - 5 #/hpf) 0-2 Urine WBC (0 - 5 #/hpf) 3-5 Ur Epithelial Cells (NEG,FEW /hpf) FEW Calcium Oxalate Crystal (NEG,FEW /hpf) FEW Amorphous Sediment (NEG,FEW /hpf) FEW Hyaline Casts (0 - 2 #/lpf) >15 H Urine Mucus (NEG,FEW /hpf) 1+ H Urine Sperm (NEGATIVE /hpf) FEW H Urine Comment CLN CATCH Lab Statement Laboratory studies reviewed and considered in [facility] medical decision-making. ECG #1 Interpretation Date 04/18/20 Time 1018 Interpreted by and reviewed by me, ED physician NL ECG Interpretation No STEMI Rate 118 Rhythm Tachycardia Re-Evaluation MDM Free Text MDM Notes Free Text MDM Notes Labs discussed with patient. No grossly abnormal findings noted. Abdomen is soft and nontender. No episodes of vomiting duri ng ER visit. Patient advised to follow-up with PCP and chronic pain specialis t for further evaluation. )( Re-Evaluation/Progress #1 Time of Re-Eval 1137 )( Re-Eval Status Improved Plan Post Re-Eval Plan discharge ED Course Medication(s) Ordered Medication(s) Ordered: Antihistamine Drugs Sig/Sima Start time Last Medication Dose Route Stop Time Status Admin Diphenhydramine HCl 25 MG X1ED STA 04/18 1112 D C 04/18 IV 04/18 1113 1129 Central Nervous System Agents Sig/Sima Start time Last Medication Dose Route Stop Time Status Admin Morphine Sulfate 2 MG X1ED STA 04/18 1121 DC IV 04/18 1122 1129 Ketorolac 15 MG X1ED STA 04/18 1021 DC 04/18 Tromethamine IV 04/18 1022 1030 Electrolytic, Caloric, And Yumiko Sig/Sima Start time Last Medication Dose Route Stop Time Status Admin Sodium Chloride 1,000 ML X1ED STA 04/18 1021 DC 12 IV 04/18 1120 1030 Gastrointestinal Drugs Sig/Sima Start time Last Medication Dose Route Stop Time Status Admin Ondansetron HCl 4 MG X1ED STA 04/18 1021 DC IV 04/18 1022 1030 Patient Discharge Departure Vital Signs/Condition Vital Signs First Documented: Result Date Time Pulse Ox 98 04/18 1021 B/P 131/69 04/18 1021 B/P Mean 89 04/18 1021 O2 Delivery Room air 04/18 1021 Temp 36.9 04/18 1021 Pulse 118 / 1021 Resp 20 12/ 1021 Last Documented: Result Date Time Pulse Ox 99 04/18 1130 B/P 135/97 12/ 1130 B/P Mean 109 / 1130 O2 Delivery Room air 04/18 1130 Pulse 100 / 1130 Resp 20 12/ 1130 Temp 36.9 / 1021 All vital signs available at the time of this en try have been reviewed. Condition Improved Clinical Impression Clinical Impression Primary Impression: LUQ abdominal pain Secondary Impressions: Chronic abdominal pain, D iabetic gastroparesis, Nausea and vomiting Time of Impression 1138 Disposition Decision Discharge )( Discharged to Home Yes )( Time 1138 )( Date 04/18/20 Discharge/Care Plan Counseled Regarding Diagnosis, Lab resul ts, Prescriptions, Need for follow-up, When to return to ED (Auto) Prescriptions Current Visit Scripts ONDANSETRON (ZOFRAN) 4 MG PO Q6H PRN PRN PRN VANDANA SEA/VOMITING ONDANSETRON (ZOFRAN) 4 MG PO Q6H PRN PRN PRN NA USEA/VOMITING #12 TABS ACETAMINOPHEN (TYLENOL) 1,000 MG PO Q6H PRN PRN prn pain ACETAMINOPHEN (TYLENOL) 1,000 MG PO Q6H PRN PRN prn pain #20 TABS FOR PAIN Prescriptions Reviewed Risks, Benefits, Alternat colt treatment Patient Instructions ED Chronic Pain Referrals Galindo Chris MD (PCP/Family) Discharge Note I have spoken with the patie nt and/or caregivers. I have explained the patient's condition, diagnoses and adela atment plan based on the information available to me at this time. I have answered the patient's and/ or caregiver's questions and addressed any concerns. The patient and/or careg pasha have as good an understanding of the patient 's diagnosis, condition and treatment plan as can be expected at this point. The vital signs have bee n stable. The patient's condition is stable and appr opriate for discharge from the emergency department. The patient will pursue further outpatient evalu ation with the primary care physician or other designated or consulting phys esteran as outlined in the discharge instructions. The patient and/or caregivers are agreeable to this plan of care and follow-up instructions have been exp lained in detail. The patient and/or caregivers have received these instructio ns in written format and have expressed an understanding of the discharge inst ructions. The patient and/or caregivers are aware that any significant change in condition or worsening of symptoms should prompt an immediate return to [facility] or the closest emergency department or a call to 911. at 1419 RPT #:[id number] END OF REPORT 2020-04-18 10:25:00-00:00 [facility] [facility] EMERGENCY PROVIDER REPORT REPORT#:[id number] REPORT STATUS: Signed DATE:04/18/20 TIME: 1025 PATIENT: RADHA CARPENTER UNIT #: [id number] ROOM/BED: AGE: 39 SEX: M PCP PHYS: Galindo Chris MD SERVICE AUTHOR: Kamla Adkins APN * ALL edits or amendments must be made on the el [employer]/computer document * Kamla Adkins 04/18/20 1025: HPI-Abd Pain M Under 40 General Confirmed Patient Yes PCP DR. CHRIS Presentation Chief Complaint Abdominal pain, Nausea, Vomiting mild Hx Obtained From Patient Sudden in Onset? No Onset Occurred Yesterday Symptom Duration Since onset Free Text HPI Notes Free Text HPI Notes 39-year-old male patient with history of diabete s type 1, gastroparesis, and hypertension is presenting to ED with complaints of left upper quadrant pain, nausea and vomiting onset yesterday. Pat ient denies any shortness of breath or chest pain, denies any fever or sick contacts. Risk-Abd Pain M Under 40 )( Torsion Risk factors reviewed Review of Systems ROS Statements All systems rev neg except as marked. Focused Review of Systems Constitutional Denies: Fever. Respiratory Denies: Cough, non-productive, Shortness of juan r th. Cardiovascular Denies: Chest pain, Palpitations, Syncope. GI Reports: Abdominal pain, Nausea, Vomiting. Male Denies: Dysuria, Penile lesion, Testicular swell ing. Musculoskeletal Denies: Back pain, Extremity pain, Extremity swe lling, Joint pain, Joint swelling, Lumbar pain, Myalgia, Neck pain, Thora cic pain. Past Medical History - Adult Stated Complaint EPIGASTRIC PAIN/ VOMITING Allergies Coded Allergies: clonidine (ANXIETY 05/20/19) haloperidol (From HALDOL) (STOMACH ACHE 01/22/20 ) metoclopramide (From REGLAN) (JERKS AND SPASMS 0 12/01/19) Home Medications Active Scripts SUCRALFATE (CARAFATE 1 GM/10 ML) 1 GM PO AC HS SUCRALFATE (CARAFATE 1 GM/10 ML) 1 GM PO AC HS #250 ML Prov: 10/17/19 Reported Medications LISINOPRIL/HCTZ (ZESTORETIC 10/12.5 MG) 1 TAB PO DAILY NORTRIPTYLINE (PAMELOR) 50 MG PO BEDTIME FAMOTIDINE (PEPCID) 20 MG PO BEDTIME SIMVASTATIN (ZOCOR) 10 MG PO BEDTIME ZOLPIDEM (AMBIEN) 10 MG PO BEDTIME INSULIN GLARGINE (LANTUS) INSULIN ASPART (NovoLOG) Review of Nursing Notes Rev avail, and agree Past Medical History: Reports: Diabetes mellitus. Additional Medical History Past medical history: Reports: Diabetes mellitus. Additional medical history: Reports chronic abdominal pain and gastroparesis Past Surgical History: Reports: Cholecystectomy. Additional Surgical History Past surgical history: Reports: Cholecystectomy. Additional surgical history: Reports having a nerve stimulator Additional Family History Reviewed, Noncontributory Alcohol Use Denies EtOH use Drug Use Denies recreational drugs Other Social History Disabled, Good social suppo rt Physical Exam Vital Signs Vital Signs First Documented: Result Date Time Pulse Ox 98 04/18 1021 B/P 131/69 04/18 1021 B/P Mean 89 04/18 1021 O2 Delivery Room air 04/18 1021 Temp 36.9 04/18 1021 Pulse 118 04/18 1021 Resp 20 04/18 1021 Last Documented: Result Date Time Pulse Ox 99 04/18 1130 B/P 135/97 04/18 1130 B/P Mean 109 04/18 1130 O2 Delivery Room air 04/18 1130 Pulse 100 04/18 1130 Resp 20 04/18 1130 Temp 36.9 04/18 1021 Review of Vital Signs Reviewed Focused PE General/Const General/Const Awake, Alert, No acute di stress, Well appearing, Well developed , Well hydrated, Well nourished, Cooperative, No t toxic appearing MS Head Head Normocephalic Eyes Eyes PERRL, Conjunctiva NL, Eyelids NL Ears/Nose/Throat Ears/Nose/Throat Atraumatic, Airway patent, Muc ous membranes moist, Pharynx NL, Tympanic membs NL, Ext a ud canal NL, Mastoid area NL, Nose exam NL, No sinus tenderness, No facial swelling, Gums/dentition N L Resp/Chest Respiratory/Chest Breath sounds NL, Breath soun ds = bilat, No respiratory distress, No wheezing Cardiovascular Cardiovascular Heart sounds NL, Cap refill not delayed, Peripheral circulation NL Abdomen/GI Abdomen/GI Soft, Non-tender, No guarding, No re bound, BS normoactive, No distention MS Back Back Inspection NL, Full range of motion, Painl ess range of motion Skin Skin Color NL, No rash, Warm, Dry Neurologic Neurologic Oriented X3, Speech NL, Gait NL Interpretation Diagnostics Lab Results Interpretation Results Laboratory Tests 04/18/20 1037: [Embedded Image Not Available] Laboratory Tests: 04/18 04/18 04/18 1042 1037 1036 Chemistry Sodium (136 - 145 mmol/L) 137 Potassium (3.5 - 5.1 mmol/L) 4.5 Chloride (98 - 107 mmol/L) 103 Carbon Dioxide (21 - 32 mmol/L) 27 BUN (7 - 18 mg/dL) 35 H Creatinine (0.67 - 1.17 mg/dL) 1.30 H Estimated GFR (MDRD) (>=60) > 60.00 Glucose (70 - 100 mg/dL) 228 H POC Glucose (70 - 105 mg/dL) 228 H Calcium (8.5 - 10.1 mg/dL) 10.7 H Total Bilirubin (0.2 - 1.0 mg/dl) 0.3 Direct Bilirubin (0.0 - 0.4 mg/dl) 0.11 AST (15 - 37 U/L) 31 ALT (12 - 78 U/L) 43 Alkaline Phosphatase (50 - 136 U/L) 82 Troponin I (0.00 - 0.045 ng/ml) <0.015 Total Protein (6.4 - 8.2 g/dl) 8.7 H Albumin (3.4 - 5.0 g/dl) 4.2 Lipase (73 - 393 U/L) 56 L Hematology WBC (4.5 - 11.0 X10(3)) 9.5 RBC (4.3 - 5.9 X10(6)) 4.88 Hgb (13.5 - 18.0 g/dL) 14.4 Hct (42.0 - 52.0 %) 42.5 MCV (78 - 100 fl) 87.1 MCH (26.0 - 34.0 pg) 29.5 MCHC (30.0 - 37.0 g/dl) 33.9 RDW (11.5 - 14.5 %) 12.8 Plt Count (150 - 350 X10(3)) 325 MPV (8.7 - 11.4 fl) 10.1 Neut % (Auto) (36.0 - 66.0 %) 64.0 Lymph % (Auto) (16.0 - 50.0 %) 27.5 Dixie % (Auto) (0.0 - 13.0 %) 7.3 Eos % (Auto) (0.0 - 4.5 %) 0.6 Baso % (Auto) (0.0 - 1.5 %) 0.3 Immature Gran # (Auto) (0.00 - 0.03 X10(3)uL) 0 .03 Absolute Neuts (auto) (1.70 - 7.70 X10(3)) 6.09 Absolute Lymphs (auto) (0.70 - 4.00 X10(3)) 2.6 2 Absolute Monos (auto) (0.00 - 0.89 X10(3)) 0.70 Absolute Eos (auto) (0.00 - 0.60 X10(3)) 0.06 Absolute Basos (auto) (0.00 - 0.20 X10(3)) 0.0 3 Absolute Nucleated RBC (0.0 - 0.1 K/mm3) 0.00 Immature Gran % (0.0 - 2.0 %) 0.3 Nucleated RBC % (0 - 0.2 %) 0.0 Toxicology Ketones (NEGATIVE mg/dl) NEGATIVE Urines Urine Color (YELLOW) YELLOW Urine Appearance (CLEAR) CLEAR Urine pH (4.6 - 8.0) 5.5 Ur Specific [place] (1.001 - 1.035) 1.023 Urine Protein (NEGATIVE mg/dl) 20 Urine Glucose (UA) (NORMAL mg/dl) >1000 Urine Blood (NEGATIVE /UL) TRACE Urine Nitrite (NEGATIVE) NEGATIVE Urine Bilirubin (NEGATIVE mg/dl) NEGATIVE Urine Urobilinogen (NORMAL mg/dl) NORMAL Ur Leukocyte Esterase (NEGATIVE /UL) NEGATIVE Urine RBC (0 - 5 #/hpf) 0-2 Urine WBC (0 - 5 #/hpf) 3-5 Ur Epithelial Cells (NEG,FEW /hpf) FEW Calcium Oxalate Crystal (NEG,FEW /hpf) FEW Amorphous Sediment (NEG,FEW /hpf) FEW Hyaline Casts (0 - 2 #/lpf) >15 H Urine Mucus (NEG,FEW /hpf) 1+ H Urine Sperm (NEGATIVE /hpf) FEW H Urine Comment CLN CATCH Lab Statement Laboratory studies reviewed and considered in [facility] medical decision-making. ECG #1 Interpretation Date 04/18/20 Time 1018 Interpreted by and reviewed by me, ED physician NL ECG Interpretation No STEMI Rate 118 Rhythm Tachycardia Re-Evaluation MDM Free Text MDM Notes Free Text MDM Notes Labs discussed with patient. No grossly abnormal findings noted. Abdomen is soft and nontender. No episodes of vomiting duri ng ER visit. Patient advised to follow-up with PCP and chronic pain specialis t for further evaluation. )( Re-Evaluation/Progress #1 Time of Re-Eval 1137 )( Re-Eval Status Improved Plan Post Re-Eval Plan discharge ED Course Medication(s) Ordered Medication(s) Ordered: Central Nervous System Agents Sig/Sima Start time Last Medication Dose Route Stop Time Status Admin Morphine Sulfate 2 MG X1ED STA 04/18 1121 DC / IV 04/18 1122 1129 Electrolytic, Caloric, And Yumiko Sig/Sima Start time Last Medication Dose Route Stop Time Status Admin Sodium Chloride 1,000 ML X1ED STA 04/18 1021 DC 12/ IV 04/18 1120 1030 Patient Discharge Departure Vital Signs/Condition Vital Signs First Documented: Result Date Time Pulse Ox 98 04/18 1021 B/P 131/69 04/18 1021 B/P Mean 89 04/18 1021 O2 Delivery Room air 04/18 1021 Temp 36.9 04/18 1021 Pulse 118 04/18 1021 Resp 20 04/18 1021 Last Documented: Result Date Time Pulse Ox 99 04/18 1130 B/P 135/97 04/18 1130 B/P Mean 109 04/18 1130 O2 Delivery Room air 04/18 1130 Pulse 100 04/18 1130 Resp 20 04/18 1130 Temp 36.9 04/18 1021 All vital signs available at the time of this en try have been reviewed. Condition Improved Clinical Impression Clinical Impression Primary Impression: LUQ abdominal pain Secondary Impressions: Chronic abdominal pain, D iabetic gastroparesis, Nausea and vomiting Time of Impression 1138 Disposition Decision Discharge )( Discharged to Home Yes )( Time 1138 )( Date 04/18/20 Discharge/Care Plan Counseled Regarding Diagnosis, Lab resul ts, Prescriptions, Need for follow-up, When to return to ED (Auto) Prescriptions Current Visit Scripts ONDANSETRON (ZOFRAN) 4 MG PO Q6H PRN PRN PRN VANDANA SEA/VOMITING ONDANSETRON (ZOFRAN) 4 MG PO Q6H PRN PRN PRN NA USEA/VOMITING #12 TABS ACETAMINOPHEN (TYLENOL) 1,000 MG PO Q6H PRN PRN prn pain ACETAMINOPHEN (TYLENOL) 1,000 MG PO Q6H PRN PRN prn pain #20 TABS FOR PAIN Prescriptions Reviewed Risks, Benefits, Alternat colt treatment Patient Instructions ED Chronic Pain Referrals Galindo Chris MD (PCP/Family) Discharge Note I have spoken with the patie nt and/or caregivers. I have explained the patient's condition, diagnoses and adela atment plan based on the information available to me at this time. I have answered the patient's and/ or caregiver's questions and addressed any concerns. The patient and/or careg pasha have as good an understanding of the patient 's diagnosis, condition and treatment plan as can be expected at this point. The vital signs have bee n stable. The patient's condition is stable and appr opriate for discharge from the emergency department. The patient will pursue further outpatient evalu ation with the primary care physician or other designated or consulting phys ician as outlined in the discharge instructions. The patient and/or caregivers are agreeable to this plan of care and follow-up instructions have been exp lained in detail. The patient and/or caregivers have received these instructio ns in written format and have expressed an understanding of the discharge inst ructions. The patient and/or caregivers are aware that any significant change in condition or worsening of symptoms should prompt an immediate return to [facility] or the closest emergency department or a call to 911. Sherry Goins 04/19/20 1115: HPI-Abd Pain M Under 40 General Initial Greet Date/Time 04/18/20 1021 Patient Discharge Departure Supervising Physician Note ReedLv Saw Pt Alone I was working in the ED at t he same time as this provider, but was not involved in this patient's care. I am required by the hospital to sign the charts of the midlevel providers who work during my shift. I am always available for consult, but I was not involved directly in this patient' s care, nor involved in the decisions about treatment or ultimate dispositio n. at 1419 at 1115 RPT #:[id number] END OF REPORT 2020-01-22 01:42:00-00:00 [facility] EMERGENCY PROVIDER REPORT REPORT#:[id number] REPORT STATUS: Signed DATE:01/22/20 TIME: 014 PATIENT: RADHA CARPENTER UNIT #: [id number] ROOM/BED: AGE: 39 SEX: M PCP PHYS: Galindo Chris MD SERVICE AUTHOR: Merlyn Leal MD * ALL edits or amendments must be made on the [employer]/computer document * HPI-Abd Pain M Under 40 General Confirmed Patient Yes Patient Type New patient Initial Greet Date/Time 01/22/20 0131 Presentation Chief Complaint Abdominal pain (GENERALIZE) Free Text HPI Notes Free Text HPI Notes 39-year-old male comes emergency room complainin g of epigastric pain that radiates to the rest of the stomach. Pain is int ense colicky like. Associated with vomiting but no fever chills or diaphoresis . Pain is 10 out of 10 persistent. Pain started at 1300 yesterday. Acco rding to the patient he has gastroparesis takes Dilaudid at home. Did not ta ke any Dilaudid before coming to the emergency room. Risk-Abd Pain M Under 40 )( Torsion Risk factors reviewed, No risk factor s Coronary Artery Disease Risk factors reviewed, D iabetes mellitus, Known CAD Review of Systems ROS Statements All systems rev neg except as marked. Focused Review of Systems Constitutional Denies: Chills, Fever, Lethargy. Respiratory Denies: Cough, non-productive, Cough, productive , Shortness of breath. Cardiovascular Denies: Chest pain, Syncope. GI Reports: Abdominal pain, Nausea, Vomiting. Male Denies: Flank pain, Testicular pain. Musculoskeletal Denies: Back pain, Extremity pain. Past Medical History - Adult Stated Complaint ABDOMINAL PAIN Allergies Coded Allergies: clonidine (ANXIETY 05/20/19) haloperidol (From HALDOL) (STOMACH ACHE 01/22/20 ) metoclopramide (From REGLAN) (JERKS AND SPASMS 0 12/01/19) Home Medications Active Scripts SUCRALFATE (CARAFATE 1 GM/10 ML) 1 GM PO AC HS SUCRALFATE (CARAFATE 1 GM/10 ML) 1 GM PO AC HS #250 ML Prov: 10/17/19 Reported Medications LISINOPRIL/HCTZ (ZESTORETIC 10/12.5 MG) 1 TAB PO DAILY NORTRIPTYLINE (PAMELOR) 50 MG PO BEDTIME FAMOTIDINE (PEPCID) 20 MG PO BEDTIME SIMVASTATIN (ZOCOR) 10 MG PO BEDTIME ZOLPIDEM (AMBIEN) 10 MG PO BEDTIME INSULIN GLARGINE (LANTUS) INSULIN ASPART (NovoLOG) Past Medical History: Reports: Diabetes mellitus. Additional Medical History Past medical history: Reports: Diabetes mellitus. Additional medical history: Reports chronic abdominal pain and gastroparesi s Past Surgical History: Reports: Cholecystectomy. Additional Surgical History Past surgical history: Reports: Cholecystectomy. Additional surgical history: Reports having a nerve stimulator Additional Family History Reviewed, Noncontributory Alcohol Use Denies EtOH use Drug Use Denies recreational drugs Smoking status for patients 13 years old or olde r: Never Smoker Other Social History Disabled, Good social suppo rt Physical Exam Vital Signs Vital Signs First Documented: Result Date Time Pulse Ox 100 01/21 0135 B/P 159/101 01/21 0135 B/P Mean 120 01/21 0135 O2 Delivery Room air 01/21 135 Temp 37.5 01/21 013 Pulse 127 01/21 0135 Resp 20 01/21 0135 Last Documented: Result Date Time Pulse Ox 98 01/21 0404 B/P 154/101 01/21 0404 B/P Mean 118 01/21 0404 Pulse 123 01/21 0404 Resp 18 01/21 0404 O2 Delivery Room air 01/215 Temp 37.5 01/21 0135 Review of Vital Signs Reviewed Focused PE General/Const General/Const Awake, Alert, Well appearing MS Head Head Normocephalic Eyes Eyes PERRL Ears/Nose/Throat Ears/Nose/Throat Airway patent, Mucous membrane s moist, Pharynx NL Resp/Chest Respiratory/Chest Breath sounds NL, Breath soun ds = bilat, No respiratory distress, No rales, No rhonchi, No wheezing Cardiovascular Cardiovascular Heart rate NL, Regular rhythm, H eart sounds NL, Peripheral circulation NL Abdomen/GI Abdomen/GI Soft, Non-tender, McBurney's non-ten callie, No guarding, No rebound, BS normoactive, No distention, No hernia, No pal pable mass MS Back Back Inspection NL, Non-tender, No CVA tenderne ss Skin Skin Color NL, Warm, Dry, Turgor NL Neurologic Neurologic Oriented X3, Speech NL, No motor def icits, No sensory deficits Interpretation Diagnostics Lab Results Interpretation Results Laboratory Tests 01/22/20 0151: [Embedded Image Not Available] Laboratory Tests: 01/211 0151 Chemistry Sodium (136 - 145 mmol/L) 135 L Potassium (3.5 - 5.1 mmol/L) 3.7 Chloride (98 - 107 mmol/L) 99 Carbon Dioxide (21 - 32 mmol/L) 28 BUN (7 - 18 mg/dL) 18 Creatinine (0.70 - 1.30 mg/dl) 1.06 Estimated GFR (MDRD) (>=60) > 60.00 Glucose (70 - 100 mg/dL) 249 H Lactic Acid (0.4 - 2.0 mmol/l) 2.0 Calcium (8.5 - 10.1 mg/dL) 10.3 H Total Bilirubin (0.2 - 1.0 mg/dL) 0.3 Direct Bilirubin (0.0 - 0.2 mg/dl) 0.07 AST (15 - 37 U/L) 23 ALT (12 - 78 U/L) 82 H Alkaline Phosphatase (45 - 117 U/L) 79 Total Protein (6.4 - 8.2 g/dl) 8.2 Albumin (3.4 - 5.0 g/dl) 4.0 Lipase (73 - 393 U/L) 138 Coagulation PT (8.7 - 11.9 SECONDS) 9.2 INR 0.9 APTT (22.8 - 34.4 seconds) 24.8 Hematology WBC (4.5 - 11.0 X10(3)) 8.7 RBC (4.3 - 5.9 X10(6)) 4.42 Hgb (13.5 - 18.0 g/dL) 13.1 L Hct (42.0 - 52.0 %) 39.1 L MCV (78 - 100 fL) 88.5 MCH (26.0 - 34.0 pg) 29.6 MCHC (30.0 - 37.0 g/dl) 33.5 RDW (11.5 - 14.5 %) 11.7 Plt Count (150 - 350 X10(3)) 294 MPV (8.7 - 11.4 fl) 10.1 Neut % (Auto) (36.0 - 66.0 %) 66.6 H Lymph % (Auto) (16 - 50 %) 24.7 Dixie % (Auto) (0.0 - 13.0 %) 8.1 Eos % (Auto) (0.0 - 4.5 %) 0.3 Baso % (Auto) (0.0 - 1.5 %) 0.2 Immature Gran # (Auto) (0.00 - 0.03 X10(3)uL) 0 .01 Absolute Neuts (auto) (1.7 - 7.7 X10(3)) 5.8 Absolute Lymphs (auto) (1.0 - 4.8 X10(3)) 2.1 Absolute Monos (auto) (0.0 - 0.89 X10(3)) 0.7 Absolute Eos (auto) (0.0 - 0.6 X10(3)) 0.0 Absolute Basos (auto) (0.0 - 0.2 X10(3)) 0.0 Immature Gran % (0.0 - 2.0 %) 0.1 RBC Morphology (NORMAL) NO Re-Evaluation MDM Free Text MDM Notes Additional Text 0150 according to the patient he wants to take t he Reglan with Benadryl, this works better for him and with Benadryl it does n ot give him the spasms. 0230 abdomen received remains soft nontender. Neri kingsley states pain is 4 out of 10. Patient given Reglan IV fluids and Zofran fo r vomiting. Encouraged to decrease narcotic intake at home which could be exacerbating his gastroparesis. 0330 patient is pain came back right before disc harge so I ordered 50 mg of Demerol given. I offered the patient adm ission to the hospital but he refused, he said he would rather go home. )( Re-Evaluation/Progress #1 )( Re-Eval Status Improved ED Course Medication(s) Ordered Medication(s) Ordered: Antihistamine Drugs Sig/Sima Start time Last Medication Dose Route Stop Time Status Admin Diphenhydramine HCl 50 MG X1ED STA 01/21 0142 D C 01/21 IV 01/21 0143 0202 Central Nervous System Agents Sig/Sima Start time Last Medication Dose Route Stop Time Status Admin Meperidine HCl 0 .STK-MED ONE 01/21 0332 DCr IV 0344 Meperidine HCl 50 MG X1ED STA 01/21 0328 DC IM 01/21 0329 Haloperidol Lactate 5 MG X1ED STA 01/21 0145 CA N IM 01/21 0146 Electrolytic, Caloric, And Yumiko Sig/Sima Start time Last Medication Dose Route Stop Time Status Admin Sodium Chloride 1,000 ML X1ED STA 01/21 0142 DC 01/21 IV 01/21 0241 0206 Gastrointestinal Drugs Sig/Sima Start time Last Medication Dose Route Stop Time Status Admin Metoclopramide HCl 10 MG X1ED STA 01/21 0154 DC 01/21 IV 01/21 0155 0204 Famotidine 20 MG X1ED STA 01/21 0142 DC 01/21 IV 01/21 0143 0201 Ondansetron HCl 8 MG X1ED STA 01/21 0142 DC IV 01/21 0143 0159 Patient Discharge Departure Vital Signs/Condition Vital Signs First Documented: Result Date Time Pulse Ox 100 01/21 0135 B/P 159/101 01/21 0135 B/P Mean 120 01/21 0135 O2 Delivery Room air 01/21 0135 Temp 37.5 01/21 0135 Pulse 127 01/21 0135 Resp 20 01/21 0135 Last Documented: Result Date Time Pulse Ox 98 01/21 0404 B/P 154/101 / 0404 B/P Mean 118 01/21 0404 Pulse 123 / 0404 Resp 18 01/21 0404 O2 Delivery Room air 01/21 0135 Temp 37.5 01/21 0135 All vital signs available at the time of this en try have been reviewed. Condition Improved Clinical Impression Clinical Impression Primary Impression: Abdominal pain Secondary Impressions: History of tachycardia, H x of diabetic gastroparesis Disposition Decision Discharge )( Discharged to Home Yes )( Time 0239 )( Date 01/22/20 Discharge/Care Plan Counseled Regarding Diagnosis, Lab resul ts, Need for follow-up, When to return to ED Referrals Galindo Chris MD (PCP/Family) Discharge Note I have spoken with the patie nt and/or caregivers. I have explained the patient's condition, diagnoses and adela atment plan based on the information available to me at this time. I have answered the patient's and/ or caregiver's questions and addressed any concerns. The patient and/or careg pasha have as good an understanding of the patient 's diagnosis, condition and treatment plan as can be expected at this point. The vital signs have bee n stable. The patient's condition is stable and appr opriate for discharge from the emergency department. The patient will pursue further outpatient evalu ation with the primary care physician or other designated or consulting phys ician as outlined in the discharge instructions. The patient and/or caregivers are agreeable to this plan of care and follow-up instructions have been exp lained in detail. The patient and/or caregivers have received these instructio ns in written format and have expressed an understanding of the discharge inst ructions. The patient and/or caregivers are aware that any significant change in condition or worsening of symptoms should prompt an immediate return to [facility] or the closest emergency department or a call to [facility]. Electronically Signed by Merlyn Leal MD on 11/04 at 0555 RPT #:[id number] END OF REPORT 2019-12-29 05:13:00-00:00 [id number] [place] [address] PATIENT NAME: RADHA CARPENTER ADMIT DATE: 0 ACCOUNT NO: [id number] ROOM NO: [facility] AGE: 39 REPORT TYPE: CONSULTATION REPORT SEX: M ADMITTING PHYSICIAN:Joe Wolf MD ATTENDING PHYSICIAN:Joe Wolf MD CONSULTATION DATE: 12/06/2019 CONSULTING PHYSICIAN: Arline valle MD ADDENDUM REVIEW OF SYSTEMS: Fourteen-point review of syst em was performed. All pertinent negatives and positives as per HPI. Re st of systems negative. Dictated By: Arline Fermin MD WT: CON:VINCE/SHANNON/ANA LILIA Conf#: [id number]/DID#: [id number] Authenticated by Arline Fermin MD On 02:29:56 PM at 1430 PATIENT NAME: RADHA CARPENTER [id number] 2019-12-23 11:12:00-00:00 [id number] [place] [address] PATIENT NAME: RADHA CARPENTER ADMIT DATE: 0 ACCOUNT NO: [id number] ROOM NO: H.209 AGE: 39 REPORT TYPE: DISCHARGE SUMMARY SEX: M ADMITTING PHYSICIAN:Joe Wolf MD ATTENDING PHYSICIAN:Joe Wolf MD ADMISSION DATE: 12/01/2019 DISCHARGE DATE: 12/16/2019 ADMITTING DIAGNOSES: 1. Right diabetic foot/abscess, concern for unde rlying osteomyelitis. 2. Longstanding history of uncontrolled diabetes mellitus type 1, multiple complication. 3. Gastroparesis. 4. Anxiety. DISCHARGE DIAGNOSES: 1. Right diabetic foot/abscess. 2. Right foot osteomyelitis. 3. Longstanding history of u ncontrolled diabetes mellitus type 1, with multiple complication. 4. Gastroparesis. 5. Anxiety. 4. Status post right foot ulcer excisional debri muriel that includes the removal of skin, subcutaneous fat, and fascia. PROCEDURE: Excisional debridement of right infec tion ulcer that includes removal of skin, subcutaneous fat, and fascia on 12/05/2019. HISTORY OF PRESENT ILLNESS: This is a 39 -year-old male with chief complaint of abdominal pain that started the day prior to admission with past medical history of poorly controlled diabetes, gastroparesis, na rcotic dependence, who again presented complaining of epi gastric pain, associated with vomiting, and similar episodes of gastroparesis. The patient complaini ng of 2 days of right plantar foot swelling and pain. ALLERGIES: CLONIDINE AND METOCLOPRAMIDE. HOME MEDICATIONS: See list. PAST MEDICAL HISTORY: Diabetes mellitus. PAST SURGICAL HISTORY: Cholecystectomy and nerve stimulator. FAMILY HISTORY: Noncontributory. SOCIAL HISTORY: Negative x3. PHYSICAL EXAMINATION: PATIENT NAME: RADHA CARPENTER [id number] VITAL SIGNS: Pulse oximeter 97%, BP 136/69, temp erature 36.4, pulse 121, and respiratory rate 20. HEAD, EYES, EARS, NOSE, AND THROAT: Unremarkable . NECK: Supple. CHEST: Lungs clear to auscultation. HEART: Tachycardia. ABDOMEN: Epigastric nontender. LABORATORY DATA: WBC 11 and platelets 401. Gluco se 106. Right foot x-ray; no acute osseous abnormality. HOSPITAL COURSE: The patient was admitted with a roberth admission diagnoses. See admission's orders. Arterial Doppler arden wing no evidence of stenosis involving bilateral lower extremities. Bone scan s howed possible osteomyelitis involving third, fourth, and fifth dig it as well as some increased radiotracer activity in the left ankle while there is no evidence of pro blem at this moment. COVID virus test requested. On 12/04/2019, Dr. Diaz performed a surgical c onsultation. Recommended surgical debridement of the right foot i nfected ulcer. Risks and benefits were explained. On 12/05/2019, Dr. Diaz performed an e xcisional debridement that include the removal of skin, subcutaneou s fat, and fascia of the right foot infected ulcer. Tolerated the procedure well. Pathology report: Hyperplastic skin with extensive acute inflammation and underlying subc utaneous tissue (cellulitis) and abscess formation. The patient tolerated the procedure well. Post- procedures orders given. First day postop, Dr. Browning performed an ID consultation due to right diabetic foot infection. Recommended to continue Zosyn an d vancomycin. Monitor renal function. Follow culture until finalized. Sedime ntation rate. Given the risk for complications, rather treat this patient as osteomyelitis with 6 weeks of antibiotic treatment. On 12/09/2019, the patient is afebrile. Pain con trolled. Wound culture grew MSSA and streptococcus. ID recommended to contin ue Zosyn, discontinue vancomycin. Optimize glucose control. Weekly CBC and CMP. The patient is going to need increase of antibiotic treatment u ntil January 15 as high risk for complications and treat the infection as ost eomyelitis. On 12/15/2019, the patient i s stable, still on high-dose of IV pain medication. The patient cannot have MRI because of an implan table device in the abdomen. Pending LTAC. Increase Levemir to 40 units twice daily subcutaneous and continue insulin sliding scale. Follow ID recomm endations with Zosyn IV for 6 weeks. The patient already has a PICC line. Following day, the patient was transferred to [facility]. DISCHARGE INSTRUCTIONS: DISPOSITION: Radha Carpenter was transferred to [facility] on 12/16/2019 and all arrangements were made. Dictated By: ARAMIS Eastman Nurse Sexual Assault for Joe Rivera MD PATIENT NAME: ARDHA CARPENTER 5580 WT: DS:VINCE/DIOR.02-PREETHIUCECE/ANA LILIA Conf#: [id number]/DID#: [id number] Authenticated and Edited by Simone Renteria On 12/24 8:41:23 PM Authenticated by Joe Rivera MD On 020 01:14:05 PM at 1314 at 1314 PATIENT NAME: RADHA CARPENTER 5580 2019-12-15 14:57:00-00:00 [facility] Hospitalist Progress Note REPORT#:[id number] REPORT STATUS: Signed DATE:12/15/19 TIME: 1456 PATIENT: RADHA CARPENTER UNIT #: [id number] ROOM/BED: [address] : [address] AGE: 39 SEX: M ATTEND: Joe Wolf MD ADM AUTHOR: Joe Wolf MD * ALL edits or amendments must be made on the [employer]/computer document * Subjective Chief Complaint: Patient admitted due to infected left foot. Bon e scan showed OM to right foot 2,3,4 metatartsals. Also some light up on his left ankle but he denies any pain or fracture to thsi ankle. He underwen t I D by surgeon today. T Patient on IV antibiotic therapy. Patient also suffering from gastroparesis. The patient screwy no complaint of any nausea vomiting but unable to advance di et because of abdominal pain. In the past this patient has been fully w orked out for gastroparesis including several gastric emptying study that h ave been normal. The patient has an implanted gastric stimulator marin t apparently is no longer working. The patient has been sent multiple joe es to [place] to a specialist but has never follow-up. Last time t he patient was under my care in a.m. where he fired me because I did no t want to perpetuate Dilaudid IV and he refused Dilaudid p.o. He see ms not to have any problems with me on this admission. Patient cannot have an MRI because of implantab le device in his abdomen. There is highly suspected osteomyelitis to his right foot. Patient denies any signs of COVID infection. Still on high doses of IV pain meds mild tachy and feeling palpitations so started telemetry Pending LTAC Review of Systems All systems rev neg: except as marked Objective Physical Exam Head/Eyes: atraumatic, clear cornea, EOMI, PERRL ENT: normal dentition, normal pharynx Neck: full range of motion, non-tender, no JVD Cardiovascular: normal capillary refill, normal heart sounds, regular rate rhythm Respiratory: aerating well, clear to auscultatio n, symmetric expansion Abdomen: tenderness (epigastric), soft, no diste ntion Extremities: moves all, no cyanosis, no edema Skin: Plantar abscess at the base of the right m etatarsal tender w underlying pus Wound/incision: Location: right foot sp I D, deep 7cm linear incison all t he way down to fascia w/o major bleeding Lymphatics: axilla normal, no lymphadenopathy Psychiatry: normal affect, no hallucinations Diagnosis, Assessment Plan Hospital course to date: Right Diabetic Foot/ abscess, Right foot osteomyelitis long standing hx of Uncontrolled DM1, multiple c omplications Gastroparesis. Anxiety plan Admitted to medical floor Continue Vanco and Clindamycin empiric antibioti cs Consult ID for OM, monitor wound cultures Continue with home medications Regular Insulin sliding scale. Continue with agg ressive management of his diabetes and hyperglycemia as this seems to be t he most significant factor controlling his gastroparesis. We will increase Levemir to 40 units twice daily subcu and continue insulin sliding scale Continue morphine and Dilaudid Continue the patient on Reglan continue with Zof ran PRN ID recommends to continue Zosyn IV for 6 weeks CM to arrange LTAC transfer Patient already has a PICC line. at 1449 RPT #:[id number] END OF REPORT 2019-12-14 15:27:00-00:00 [facility] Hospitalist Progress Note REPORT#:[id number] REPORT STATUS: Signed DATE:12/14/19 TIME: 1527 PATIENT: RADHA CARPENTER UNIT #: [id number] ROOM/BED: [address] : 82 AGE: 39 SEX: M ATTEND: Joe Wolf MD ADM AUTHOR: Joe Wolf MD * ALL edits or amendments must be made on the [employer]/computer document * Subjective Chief Complaint: Patient admitted due to infected left foot. Bone scan showed OM to right foot 2,3,4 metatartsals. Also some light up on h is left ankle but he denies any pain or fracture to thsi ankle. He underwent I D by surgeon today. T Patient on IV antibiotic therapy. Patient also suffering from gastroparesis. The p atient screwy no complaint of any nausea vomiting but unable to advance t because of abdominal pain. In the past this patient has been fully wo rked out for gastroparesis including several gastric emptying study that pretty ve been normal. The patient has an implanted gastric stimulator that apparently is no longer working. The patient has been sent multiple time s to [place] to a specialist but has never follow-up. Last time th e patient was under my care in a.m. where he fired me because I did not want to perpetuate Dilaudid IV and he refused Dilaudid p.o. He seem s not to have any problems with me on this admission. Patient cannot have an MRI because of implantabl e device in his abdomen. There is highly suspected osteomyelitis to his r ight foot. Patient denies any signs of COVID infection. Still on high doses of IV pain meds mild tachy and feeling palpitations so started t elemetry Pending LTAC Review of Systems All systems rev neg: except as marked Objective General VS/I O: Vital Signs: Date Time Temp Pulse Resp B/P B/P Pulse O2 O2 F low FiO2 Mean Ox Delivery Rate 12/13 1139 36.9 81 18 108/74 85.5 95 Room air 12/13 0805 37.0 91 16 114/75 87.7 96 Room air 12/13 0505 37.6 88 16 106/70 81.9 95 Room air 12/13 0403 36.8 102 18 142/87 105.3 96 12/13 0025 37.1 93 16 111/72 85.1 97 Room air 12/12 2148 37.1 88 16 112/78 89.2 98 Room air 12/12 1834 36.7 86 18 105/71 82.5 96 Room air 24 hour I O ending at 0700: 12/13 0700 12/12 1900 Intake Total 470.00 480 Output Total 600 Balance -130.00 480 Intake, IV 230.00 Intake, Oral 240 480 Number 0 Bowel Movements Number Voids 1 2 Output, Urine 600 Patient Weight Weight (lb): Weight (oz): Weight (kg): 84.091 Physical Exam General appearance: alert, awake, oriented Head/Eyes: atraumatic, clear cornea, EOMI, PERRL ENT: normal dentition, normal pharynx Neck: full range of motion, non-tender, no JVD Cardiovascular: normal capillary refill, normal heart sounds, regular rate rhythm Respiratory: aerating well, clear to auscultatio n, symmetric expansion Abdomen: tenderness (epigastric), soft, no diste ntion Extremities: moves all, no cyanosis, no edema Skin: Plantar abscess at the base of the right m etatarsal tender w underlying pus Wound/incision: Location: right foot sp I D, deep 7cm linear incison all t he way down to fascia w/o major bleeding Lymphatics: axilla normal, no lymphadenopathy Psychiatry: normal affect, no hallucinations Results Findings/Data: Laboratory Tests 12/13 12/13 12/12 12/12 1128 0758 2135 1652 Chemistry POC Glucose (70 - 105 mg/dL) 298 H 279 H 243 H 227 H Diagnosis, Assessment Plan Hospital course to date: Right Diabetic Foot/ abscess, Right foot osteomyelitis long standing hx of Uncontrolled DM1, multiple c omplications Gastroparesis. Anxiety plan Admitted to medical floor Continue Vanco and Clindamycin empiric antibioti cs Consult ID for OM, monitor wound cultures Continue with home medications Regular Insulin sliding scale. Continue with agg ressive management of his diabetes and hyperglycemia as this seems to be t he most significant factor controlling his gastroparesis. We will increase Levemir to 40 units twice daily subcu and continue insulin sliding scale Continue morphine and Dilaudid Continue the patient on Reglan continue with Zof ran PRN ID recommends to continue Zosyn IV for 6 weeks CM to arrange LTAC transfer Patient already has a PICC line. at 1528 RPT #:[id number] END OF REPORT 2019-12-13 14:04:00-00:00 [facility] Hospitalist Progress Note REPORT#:[id number] REPORT STATUS: Signed DATE:12/13/19 TIME: 1404 PATIENT: RADHA CARPENTER UNIT #: [id number] [facility] AGE: 39 SEX: M ATTEND: Joe Wolf MD ADM AUTHOR: Joe Wolf MD * ALL edits or amendments must be made on the [employer]/computer document * Subjective Chief Complaint: Patient admitted due to infected left foot. Bone scan showed OM to right foot 2,3,4 metatartsals. Also some light up on h is left ankle but he denies any pain or fracture to thsi ankle. He underwent I D by surgeon today. T Patient on IV antibiotic therapy. Patient also suffering from gastroparesis. The p atient screwy no complaint of any nausea vomiting but unable to advance t because of abdominal pain. In the past this patient has been fully wo rked out for gastroparesis including several gastric emptying study that pretty ve been normal. The patient has an implanted gastric stimulator that apparently is no longer working. The patient has been sent multiple time s to [place] to a specialist but has never follow-up. Last time th e patient was under my care in a.m. where he fired me because I did not want to perpetuate Dilaudid IV and he refused Dilaudid p.o. He seem s not to have any problems with me on this admission. Patient cannot have an MRI because of implantabl e device in his abdomen. There is highly suspected osteomyelitis to his r ight foot. Patient denies any signs of COVID infection. Still on high doses of IV pain meds mild tachy and feeling palpitations so started t elemetry Pending LTAC Review of Systems All systems rev neg: except as marked Objective General VS/I O: Vital Signs: Date Time Temp Pulse Resp B/P B/P Pulse O2 O2 F low FiO2 Mean Ox Delivery Rate 12/12 1350 36.7 90 18 106/71 82.5 97 Room air 12/12 0630 36.6 93 12 120/83 95.6 97 Room air 12/11 2257 36.9 94 12 146/92 109.6 96 Room air 12/11 1850 36.9 81 18 114/78 89.7 92 Room air 12/11 1603 36.8 94 18 99/62 74.2 93 Room air 24 hour I O ending at 0700: 12/12 0712/11 1900 Intake Total 250.00 100.00 Output Total Balance 250.00 100.00 Intake, IV 250.00 100.00 Number 1 Bowel Movements Number Voids 1 Patient Weight Weight (lb): Weight (oz): Weight (kg): 84.091 Physical Exam General appearance: alert, awake, oriented Head/Eyes: atraumatic, clear cornea, EOMI, PERRL ENT: normal dentition, normal pharynx Neck: full range of motion, non-tender, no JVD Cardiovascular: normal capillary refill, normal heart sounds, regular rate rhythm Respiratory: aerating well, clear to auscultatio n, symmetric expansion Abdomen: tenderness (epigastric), soft, no diste ntion Extremities: moves all, no cyanosis, no edema Skin: Plantar abscess at the base of the right m etatarsal tender w underlying pus Wound/incision: Location: right foot sp I D, deep 7cm linear incison all t he way down to fascia w/o major bleeding Lymphatics: axilla normal, no lymphadenopathy Psychiatry: normal affect, no hallucinations Results Findings/Data: Laboratory Tests 12/12 12/12 12/11 12/11 1204 0719 2308 1756 Chemistry POC Glucose (70 - 105 mg/dL) 292 H 341 H 318 H 317 H Diagnosis, Assessment Plan Hospital course to date: Right Diabetic Foot/ abscess, Right foot osteomyelitis long standing hx of Uncontrolled DM1, multiple c omplications Gastroparesis. Anxiety plan Admitted to medical floor Continue Vanco and Clindamycin empiric antibioti cs Consult ID for OM, monitor wound cultures Continue with home medications Regular Insulin sliding scale. Continue with agg ressive management of his diabetes and hyperglycemia as this seems to be t he most significant factor controlling his gastroparesis. Continue morphine and Dilaudid Continue the patient on Reglan continue with Zof ran PRN ID recommends to continue Zosyn IV for 6 weeks CM to arrange LTAC transfer Patient already has a PICC line. at 1405 RPT #:[id number] END OF REPORT 2019-12-12 14:33:00-00:00 [facility] Hospitalist Progress Note REPORT#:[id number] REPORT STATUS: Signed DATE:12/12/19 TIME: 1433 PATIENT: RADHA CARPENTER UNIT #: [id number] ROOM/BED: [address] : 82 AGE: 39 SEX: M ATTEND: Joe Wolf MD ADM AUTHOR: Joe Wolf MD * ALL edits or amendments must be made on the [facility]/computer document * Subjective Chief Complaint: Patient admitted due to infected left foot. Bon e scan showed OM to right foot 2,3,4 metatartsals. Also some light up on his left ankle but he denies any pain or fracture to thsi ankle. He underwen t I D by surgeon today. T Patient on IV antibiotic therapy. Patient also suffering from gastroparesis. The patient screwy no complaint of any nausea vomiting but unable to advance di et because of abdominal pain. In the past this patient has been fully w orked out for gastroparesis including several gastric emptying study that h ave been normal. The patient has an implanted gastric stimulator marin t apparently is no longer working. The patient has been sent multiple joe es to [place] to a specialist but has never follow-up. Last time t he patient was under my care in a.m. where he fired me because I did no t want to perpetuate Dilaudid IV and he refused Dilaudid p.o. He see ms not to have any problems with me on this admission. Patient cannot have an MRI because of implantab le device in his abdomen. There is highly suspected osteomyelitis to his right foot. Patient denies any signs of COVID infection. Review of Systems All systems rev neg: except as marked Objective Physical Exam Head/Eyes: atraumatic, clear cornea, EOMI, PERRL ENT: normal dentition, normal pharynx Neck: full range of motion, non-tender, no JVD Cardiovascular: normal capillary refill, normal heart sounds, regular rate rhythm Respiratory: aerating well, clear to auscultatio n, symmetric expansion Abdomen: tenderness (epigastric), soft, no diste ntion Extremities: moves all, no cyanosis, no edema Skin: Plantar abscess at the base of the right m etatarsal tender w underlying pus Wound/incision: Location: right foot sp I D, deep 7cm linear incison all t he way down to fascia w/o major bleeding Lymphatics: axilla normal, no lymphadenopathy Psychiatry: normal affect, no hallucinations Diagnosis, Assessment Plan Hospital course to date: Right Diabetic Foot/ abscess, Right foot osteomyelitis long standing hx of Uncontrolled DM1, multiple c omplications Gastroparesis. Anxiety plan Admitted to medical floor Continue Vanco and Clindamycin empiric antibioti cs Consult ID for OM, monitor wound cultures Continue with home medications Regular Insulin sliding scale. Continue with agg ressive management of his diabetes and hyperglycemia as this seems to be t he most significant factor controlling his gastroparesis. Continue morphine and Dilaudid Continue the patient on Reglan continue with Zof ran PRN ID recommends to continue Zosyn IV for 6 weeks CM to arrange LTAC transfer Patient already has a PICC line. at 1434 RPT #:[id number] END OF REPORT 2019-12-11 21:16:00-00:00 [facility] Hospitalist Progress Note REPORT#:[id number] REPORT STATUS: Signed DATE:12/11/19 TIME: 2115 PATIENT: RADHA CARPENTER UNIT #: [id number] ROOM/BED: [address] : 82 AGE: 39 SEX: M ATTEND: Joe Wolf MD ADM AUTHOR: Joe Wolf MD * ALL edits or amendments must be made on the [facility]/computer document * Subjective Chief Complaint: Patient admitted due to infected left foot. Bon e scan showed OM to right foot 2,3,4 metatartsals. Also some light up on his left ankle but he denies any pain or fracture to thsi ankle. He underwen t I D by surgeon today. T Patient on IV antibiotic therapy. Patient also suffering from gastroparesis. The patient screwy no complaint of any nausea vomiting but unable to advance di et because of abdominal pain. In the past this patient has been fully w orked out for gastroparesis including several gastric emptying study that h ave been normal. The patient has an implanted gastric stimulator marin t apparently is no longer working. The patient has been sent multiple joe es to [place] to a specialist but has never follow-up. Last time t he patient was under my care in a.m. where he fired me because I did no t want to perpetuate Dilaudid IV and he refused Dilaudid p.o. He see ms not to have any problems with me on this admission. Patient cannot have an MRI because of implantab le device in his abdomen. There is highly suspected osteomyelitis to his right foot. Patient denies any signs of COVID infection. Review of Systems All systems rev neg: except as marked Objective Physical Exam Head/Eyes: atraumatic, clear cornea, EOMI, PERRL ENT: normal dentition, normal pharynx Neck: full range of motion, non-tender, no JVD Cardiovascular: normal capillary refill, normal heart sounds, regular rate rhythm Respiratory: aerating well, clear to auscultatio n, symmetric expansion Abdomen: tenderness (epigastric), soft, no diste ntion Extremities: moves all, no cyanosis, no edema Skin: Plantar abscess at the base of the right m etatarsal tender w underlying pus Wound/incision: Location: right foot sp I D, deep 7cm linear incison all t he way down to fascia w/o major bleeding Lymphatics: axilla normal, no lymphadenopathy Psychiatry: normal affect, no hallucinations Diagnosis, Assessment Plan Hospital course to date: Right Diabetic Foot/ abscess, Right foot osteomyelitis long standing hx of Uncontrolled DM1, multiple c omplications Gastroparesis. Anxiety plan Admitted to medical floor Continue Vanco and Clindamycin empiric antibioti cs Consult ID for OM, monitor wound cultures Continue with home medications Regular Insulin sliding scale. Continue with agg ressive management of his diabetes and hyperglycemia as this seems to be t he most significant factor controlling his gastroparesis. Discontinue morphine and switch to Dilau did as morphine as per in the past not to be effective. Continue the patient on Reglan continue with Zof ran PRN ID recommends to continue Zosyn IV for 6 weeks CM to arrange LTAC transfer Patient already has a PICC line. at 1359 RPT #:[id number] END OF REPORT 2019-12-10 10:23:00-00:00 [facility] Hospitalist Progress Note REPORT#:[id number] REPORT STATUS: Signed DATE:12/10/19 TIME: 1023 PATIENT: RADHA CARPENTER UNIT #: [id number] ROOM/BED: [address] : 82 AGE: 39 SEX: M ATTEND: Joe Wolf MD ADM AUTHOR: Joe Wolf MD * ALL edits or amendments must be made on the el [facility]/computer document * Subjective Chief Complaint: Patient admitted due to infected left foot. Bon e scan showed OM to right foot 2,3,4 metatartsals. Also some light up on his left ankle but he denies any pain or fracture to thsi ankle. He underwen t I D by surgeon today. T Patient on IV antibiotic therapy. Patient also suffering from gastroparesis. The patient screwy no complaint of any nausea vomiting but unable to advance di et because of abdominal pain. In the past this patient has been fully w orked out for gastroparesis including several gastric emptying study that h ave been normal. The patient has an implanted gastric stimulator marin t apparently is no longer working. The patient has been sent multiple joe es to [place] to a specialist but has never follow-up. Last time t he patient was under my care in a.m. where he fired me because I did no t want to perpetuate Dilaudid IV and he refused Dilaudid p.o. He see ms not to have any problems with me on this admission. Patient cannot have an MRI because of implantab le device in his abdomen. There is highly suspected osteomyelitis to his right foot. Patient denies any signs of COVID infection. Review of Systems All systems rev neg: except as marked Objective Physical Exam Head/Eyes: atraumatic, clear cornea, EOMI, PERRL ENT: normal dentition, normal pharynx Neck: full range of motion, non-tender, no JVD Cardiovascular: normal capillary refill, normal heart sounds, regular rate rhythm Respiratory: aerating well, clear to auscultatio n, symmetric expansion Abdomen: tenderness (epigastric), soft, no diste ntion Extremities: moves all, no cyanosis, no edema Skin: Plantar abscess at the base of the right m etatarsal tender w underlying pus Wound/incision: Location: right foot sp I D, deep 7cm linear incison all t he way down to fascia w/o major bleeding Lymphatics: axilla normal, no lymphadenopathy Psychiatry: normal affect, no hallucinations Diagnosis, Assessment Plan Hospital course to date: Right Diabetic Foot/ abscess, Right foot osteomyelitis long standing hx of Uncontrolled DM1, multiple c omplications Gastroparesis. Anxiety plan Admitted to medical floor Continue Vanco and Clindamycin empiric antibioti cs Consult ID for OM, monitor wound cultures Continue with home medications Regular Insulin sliding scale. Continue with agg ressive management of his diabetes and hyperglycemia as this seems to be t he most significant factor controlling his gastroparesis. Discontinue morphine and switch to Dilau did as morphine as per in the past not to be effective. Continue the patient on Reglan continue with Zof ran PRN ID recommends to continue Zosyn IV for 6 weeks CM to arrange LTAC transfer Patient already has a PICC line. at 1448 RPT #:[id number] END OF REPORT 2019-12-09 21:50:00-00:00 [facility] Hospitalist Progress Note REPORT#:[id number] REPORT STATUS: Signed DATE:12/09/19 TIME: 2149 PATIENT: RADHA CARPENTER UNIT #: [id number] ROOM/BED: [address] : 82 AGE: 39 SEX: M ATTEND: Joe Wolf MD ADM AUTHOR: Joe Wolf MD * ALL edits or amendments must be made on the el [employer]/computer document * Subjective Chief Complaint: Patient admitted due to infected left foot. Bon e scan showed OM to right foot 2,3,4 metatartsals. Also some light up on his left ankle but he denies any pain or fracture to thsi ankle. He underwen t I D by surgeon today. T Patient on IV antibiotic therapy. Patient also suffering from gastroparesis. The patient screwy no complaint of any nausea vomiting but unable to advance di et because of abdominal pain. In the past this patient has been fully w orked out for gastroparesis including several gastric emptying study that h ave been normal. The patient has an implanted gastric stimulator marin t apparently is no longer working. The patient has been sent multiple joe es to [place] to a specialist but has never follow-up. Last time t he patient was under my care in a.m. where he fired me because I did no t want to perpetuate Dilaudid IV and he refused Dilaudid p.o. He see ms not to have any problems with me on this admission. Patient cannot have an MRI because of implantab le device in his abdomen. There is highly suspected osteomyelitis to his right foot. Patient denies any signs of COVID infection. Review of Systems All systems rev neg: except as marked Objective Physical Exam Head/Eyes: atraumatic, clear cornea, EOMI, PERRL ENT: normal dentition, normal pharynx Neck: full range of motion, non-tender, no JVD Cardiovascular: normal capillary refill, normal heart sounds, regular rate rhythm Respiratory: aerating well, clear to auscultatio n, symmetric expansion Abdomen: tenderness (epigastric), soft, no diste ntion Extremities: moves all, no cyanosis, no edema Skin: Plantar abscess at the base of the right m etatarsal tender w underlying pus Wound/incision: Location: right foot sp I D, deep 7cm linear incison all t he way down to fascia w/o major bleeding Lymphatics: axilla normal, no lymphadenopathy Psychiatry: normal affect, no hallucinations Diagnosis, Assessment Plan Hospital course to date: Right Diabetic Foot/ abscess, Right foot osteomyelitis long standing hx of Uncontrolled DM1, multiple c omplications Gastroparesis. Anxiety plan Admitted to medical floor Continue Vanco and Clindamycin empiric antibioti cs Consult ID for OM, monitor wound cultures Continue with home medications Regular Insulin sliding scale. Continue with agg ressive management of his diabetes and hyperglycemia as this seems to be t he most significant factor controlling his gastroparesis. Discontinue morphine and switch to Dilau did as morphine as per in the past not to be effective. Continue the patient on Reglan continue with Zof ran PRN ID recommends to continue Zosyn IV for 6 weeks CM to arrange LTAC transfer Patient already has a PICC line. at 2151 RPT #:[id number] END OF REPORT 2019-12-09 06:43:00-00:00 [facility] Infectious Dis. Progress Note REPORT#:[id number] REPORT STATUS: Signed DATE:12/09/19 TIME: 06 PATIENT: RADHA CARPENTER UNIT #: [id number] ROOM/BED: [address] : 82 AGE: 39 SEX: M ATTEND: Joe Wolf MD ADM AUTHOR: Arline Cash * ALL edits or amendments must be made on the [employer]/computer document * Subjective Chief Complaint: DATE OF SERVICE: 12/08/2019 Infectious disease progress note Reason for follow-up: Right foot abscess Antibiotics: Vancomycin 12/05- Zosyn 12/05- Clindamycin discontinued Subjective: Afebrile for leukocytosis, pain cont rol. Wound cultures grew MSSA and Streptococcus Objective General VS/I O: Last Documented: Result Date Time Pulse Ox 96 12/08 0608 B/P 130/87 12/08 0608 B/P Mean 101.4 12/08 0608 O2 Delivery Room air 12/08 0608 Temp 98.4 12/08 0608 Pulse 94 12/08 0608 Resp 12 12/08 0608 Vital Signs Date Temp Pulse Resp B/P B/P Mean Pulse Ox FiO2 12/07-12/08 97.9-98.8 91-97 12-18 130-149/81-97 99.9-114.3 93-97 24 hour I O ending at 0700: 12/08 0700 12/07 1900 Intake Total 220.00 480 Output Total 450 Balance -230.00 480 Intake, IV 220.00 Intake, Oral 480 Number 0 Bowel Movements Number Voids 3 Output, Urine 450 Patient Weight Weight (lb): Weight (oz): Weight (kg): 84.091 Physical Exam General appearance: alert, awake, oriented Head/Eyes: normal conjunctiva/sclera ENT: normal dentition Neck: supple/no meningismus Cardiovascular: normal heart sounds Respiratory: symmetric expansion Abdomen: no distention Extremities: abnormal capill adrian refill, DEEP WOUND BTWEEN 1ST AND SECOND TOE WEB SPACE, TENDONS VISUALIZED Considered stroke alert: no Results Findings/Data: Laboratory Tests 12/07 12/07 12/07 12/07 2232 1804 1108 0708 Chemistry Sodium (136 - 145 mmol/L) 138 Potassium (3.5 - 5.1 mmol/L) 3.7 Chloride (98 - 107 mmol/L) 103 Carbon Dioxide (21 - 32 mmol/L) 30 BUN (7 - 18 mg/dL) 10 Creatinine (0.67 - 1.17 mg/dL) 0.80 Estimated GFR (MDRD) (>=60) > 60.00 Glucose (70 - 100 mg/dL) 271 H POC Glucose (70 - 105 mg/dL) 217 H 264 H 273 H Calcium (8.5 - 10.1 mg/dL) 8.5 Total Bilirubin (0.2 - 1.0 mg/dl) 0.3 AST (15 - 37 U/L) 12 L ALT (12 - 78 U/L) 68 Alkaline Phosphatase (50 - 136 U/L) 138 H Total Protein (6.4 - 8.2 g/dl) 7.8 Albumin (3.4 - 5.0 g/dl) 2.5 L Laboratory Tests 12/07 0708 Hematology WBC (4.5 - 11.0 X10(3)) 11.1 H RBC (4.3 - 5.9 X10(6)) 3.82 L Hgb (13.5 - 18.0 g/dL) 11.5 L Hct (42.0 - 52.0 %) 35.9 L MCV (78 - 100 fl) 94.0 MCH (26.0 - 34.0 pg) 30.1 MCHC (30.0 - 37.0 g/dl) 32.0 RDW (11.5 - 14.5 %) 11.8 Plt Count (150 - 350 X10(3)) 494 H MPV (8.7 - 11.4 fl) 9.3 Neut % (Auto) (36.0 - 66.0 %) 72.8 H Lymph % (Auto) (16.0 - 50.0 %) 19.6 Dixie % (Auto) (0.0 - 13.0 %) 6.2 Eos % (Auto) (0.0 - 4.5 %) 0.5 Baso % (Auto) (0.0 - 1.5 %) 0.3 Immature Gran # (Auto) (0.00 - 0.03 X10(3)uL) 0 .07 H Absolute Neuts (auto) (1.70 - 7.70 X10(3)) 8.08 H Absolute Lymphs (auto) (0.70 - 4.00 X10(3)) 2.1 7 Absolute Monos (auto) (0.00 - 0.89 X10(3)) 0.69 Absolute Eos (auto) (0.00 - 0.60 X10(3)) 0.05 Absolute Basos (auto) (0.00 - 0.20 X10(3)) 0.03 Absolute Nucleated RBC (0.0 - 0.1 K/mm3) 0.00 Immature Gran % (0.0 - 2.0 %) 0.6 Nucleated RBC % (0 - 0.2 %) 0.0 Diagnosis, Assessment Plan Free Text A P: 1. Right foot plantar ulcer with associated cell ulitis and abscess. Bone scan suggestive of osteomyelitis. Operative note described abscess extending from the first metatarsal phalanx joint distally towards the webspace between the great and second toe interosseous space and the second toe interspace between the first and second metatarsal bones. Debridement down to fascia, no bone sent for histopathology. MSSA and streptococcus viridans 2. Uncontrolled diabetes type 1 with hemoglobin A1c of 11.2 3. Gastroparesis Plan Continue with Zosyn Disconitnue Vancomycin We will monitor renal function Optimize glucose control Debridement down to fascia, no bone was sent for histopathology. Bone scan findings nonspecific. Significantly elev ated CRP and sed rate. Given high risk for complications and treatment failure I will t reat current infection as osteomyelitis with Zosyn for 6 weeks until 2019. Weekly CBC with and CMP He is a good candidate for LTAC Case management consulted for [place] I will stop hospital visits, please call with up dates or concerns at 0652 RPT #:[id number] END OF REPORT 2019-12-08 12:52:00-00:00 [facility] Hospitalist Progress Note REPORT#:[id number] REPORT STATUS: Signed DATE:12/08/19 TIME: 1252 PATIENT: RADHA CARPENTER UN[facility] #: [id number] [facility] AGE: 39 SEX: M ATTEND: Joe Wolf MD ADM AUTHOR: Joe Wolf MD * ALL edits or amendments must be made on the [employer]/computer document * Subjective Chief Complaint: Patient admitted due to infected left foot. Bone scan showed OM to right foot 2,3,4 metatartsals. Also some light up on h is left ankle but he denies any pain or fracture to thsi ankle. He underwent I D by surgeon today. T Patient on IV antibiotic therapy. Patient also suffering from gastroparesis. The p atient screwy no complaint of any nausea vomiting but unable to advance t because of abdominal pain. In the past this patient has been fully wo rked out for gastroparesis including several gastric emptying study that pretty ve been normal. The patient has an implanted gastric stimulator that apparently is no longer working. The patient has been sent multiple time s to [place] to a specialist but has never follow-up. Last time th e patient was under my care in a.m. where he fired me because I did not want to perpetuate Dilaudid IV and he refused Dilaudid p.o. He seem s not to have any problems with me on this admission. Patient cannot have an MRI because of implantabl e device in his abdomen. There is highly suspected osteomyelitis to his r ight foot. Patient denies any signs of COVID infection. Review of Systems All systems rev neg: except as marked Objective General VS/I O: Vital Signs: Date Time Temp Pulse Resp B/P B/P Pulse O2 O2 F low FiO2 Mean Ox Delivery Rate 12/07 0546 36.4 100 16 153/91 111.8 97 12/06 2216 37.0 100 12 148/89 108.7 97 Room air 12/06 1852 36.5 102 14 145/88 107.0 97 Room air 12/06 1446 36.7 108 12 144/88 106.6 99 Room air 24 hour I O ending at 0700: 12/07 0700 12/06 1900 Intake Total 500.00 1180.00 Output Total 600 Balance -100.00 1180.00 Intake, IV 500.00 700.00 Intake, Oral 480 Number 0 Bowel Movements Number Voids 3 Output, Urine 600 Patient Weight Weight (lb): Weight (oz): Weight (kg): 84.091 Medications: Active Meds + DC'd Last 24 Hrs Zolpidem Tartrate 10 MG BEDTIME PO Hydromorphone HCl 0.5 MG Q4H PRN PRN IV Morphine Sulfate 4 MG Q4H PRN PRN IV Piperacillin Sod/Tazobactam Sod 3.375 GM Q8HR IV Sodium Chloride 100 ML Q8HR IV Sodium Hypochlorite IRRIGATE BID IRR Vancomycin HCl 1 EACH ASDIR IV (DC) Vancomycin HCl 1,500 MG Q12H IV (DC) Sodium Chloride 300 ML Hydrocodone Bitart/Acetaminophen 1 TAB Q8H PRN P RN PO Lactated Ringer's 1,000 ML ASDIR IV Ketorolac Tromethamine 15 MG Q8H PRN PRN IV Hydromorphone HCl 0.5 MG Q4H PRN PRN IV (DC) Hydrochlorothiazide 12.5 MG DAILY PO Lisinopril 10 MG DAILY PO Undefined Medication 20 UNIT DAILY SUBQ Device 1 SYRINGE Famotidine 20 MG BEDTIME PO Nortriptyline HCl 50 MG BEDTIME PO Simvastatin 10 MG BEDTIME PO Insulin Human Regular SLIDING SCALE AC HS SUBQ Sucralfate 1 GM AC HS PO Dextrose/Water 25 ML ASDIR PRN IV Enoxaparin Sodium 40 MG DAILY 0800 SUBQ Glucagon 1 MG ASDIR PRN IM Acetaminophen 650 MG Q6H PRN PRN PO Guaifenesin 10 ML Q6H PRN PRN PO (CKD) Hydralazine HCl 10 MG Q6H PRN PRN IV Lactulose 30 ML BID PRN PRN PO (CKD) Ondansetron HCl 4 MG Q6H PRN PRN IV Physical Exam Head/Eyes: atraumatic, clear cornea, EOMI, PERRL ENT: normal dentition, normal pharynx Neck: full range of motion, non-tender, no JVD Cardiovascular: normal capillary refill, normal heart sounds, regular rate rhythm Respiratory: aerating well, clear to auscultatio n, symmetric expansion Abdomen: tenderness (epigastric), soft, no diste ntion Extremities: moves all, no cyanosis, no edema Skin: Plantar abscess at the base of the right m etatarsal tender w underlying pus Wound/incision: Location: right foot sp I D, deep 7cm linear incison all t he way down to fascia w/o major bleeding Lymphatics: axilla normal, no lymphadenopathy Psychiatry: normal affect, no hallucinations Diagnosis, Assessment Plan Hospital course to date: Right Diabetic Foot/ abscess, Right foot osteomyelitis long standing hx of Uncontrolled DM1, multiple c omplications Gastroparesis. Anxiety plan Admitted to medical floor Continue Vanco and Clindamycin empiric antibioti cs Consult ID for OM, monitor wound cultures Continue with home medications Regular Insulin sliding scale. Continue with agg ressive management of his diabetes and hyperglycemia as this seems to be t he most significant factor controlling his gastroparesis. Discontinue morphine and switch to Dilau did as morphine as per in the past not to be effective. Continue the patient on Reglan continue with Zof ran PRN Wound culture showing MSSA sensitive to oxacilli n and also Levaquin. We will discuss with infectious dise ases to see the patient can be discharged home with Levaquin IV daily for 6 weeks Patient already has a PICC line. at 1254 RPT #:[id number] END OF REPORT 2019-12-08 12:38:00-00:00 [facility] General Surgery Progress Note REPORT#:[id number] REPORT STATUS: Signed DATE:12/08/19 TIME: 1238 PATIENT: RADHA CARPENTER UNIT #: [id number] ROOM/BED: [address] : 82 AGE: 39 SEX: M ATTEND: Joe Wolf MD ADM AUTHOR: Simone Cabrera * ALL edits or amendments must be made on the el [employer]/computer document * Review of Systems Constitutional: Reports: malaise. Denies: chills, fever. Skin: Reports: other. Allergy/Immun: Denies: allergic reaction, itching. Eyes: Denies: itching, eye pain, swelling. ENT: Denies: nasal congestion, sore throat. Respiratory: Denies: non productive cough, SOB. Cardiovascular: Denies: chest pain, palpitations. GI: Reports: abdominal pain, anorexia, nausea. Denie s: diarrhea, vomiting. : Denies: dysuria, hematuria. Musculoskeletal: Other musculoskeletal: Reports: other (Right foot wound). Endocrine: Denies: heat intolerance, polydipsia, polyuria. Neuro: Denies: confusion, numbness, seizure, sy ncope, unable to speak, vision change. Psych: Denies: agitation, anxiety, confusion. Objective General VS/I O: Last Documented: Result Date Time Pulse Ox 97 12/07 0546 B/P 153/91 12/07 0546 B/P Mean 111.8 12/07 0546 Temp 97.5 12/07 0546 Pulse 100 12/07 0546 Resp 16 12/07 0546 O2 Delivery Room air 12/07 2215 Vital Signs Date Temp Pulse Resp B/P B/P Mean Pulse Ox FiO2 12/06-12/07 97.5-98.6 100-108 12-16 144-153/88- 106.6-111.8 97-99 91 24 hour I O ending at 0700: 12/07 0700 12/06 1900 Intake Total 500.00 1180.00 Output Total 600 Balance -100.00 1180.00 Intake, IV 500.00 700.00 Intake, Oral 480 Number 0 Bowel Movements Number Voids 3 Output, Urine 600 Patient Weight Weight (lb): Weight (oz): Weight (kg): 84.091 Medications: Active Meds + DC'd Last 24 Hrs Zolpidem Tartrate 10 MG BEDTIME PO Hydromorphone HCl 0.5 MG Q4H PRN PRN IV Morphine Sulfate 4 MG Q4H PRN PRN IV Piperacillin Sod/Tazobactam Sod 3.375 GM Q8HR IV Sodium Chloride 100 ML Q8HR IV Sodium Hypochlorite IRRIGATE BID IRR Vancomycin HCl 1 EACH ASDIR IV (DC) Vancomycin HCl 1,500 MG Q12H IV (DC) Sodium Chloride 300 ML Hydrocodone Bitart/Acetaminophen 1 TAB Q8H PRN P RN PO Lactated Ringer's 1,000 ML ASDIR IV Ketorolac Tromethamine 15 MG Q8H PRN PRN IV Hydromorphone HCl 0.5 MG Q4H PRN PRN IV (DC) Hydrochlorothiazide 12.5 MG DAILY PO Lisinopril 10 MG DAILY PO Undefined Medication 20 UNIT DAILY SUBQ Device 1 SYRINGE Famotidine 20 MG BEDTIME PO Nortriptyline HCl 50 MG BEDTIME PO Simvastatin 10 MG BEDTIME PO Insulin Human Regular SLIDING SCALE AC HS SUBQ Sucralfate 1 GM AC HS PO Dextrose/Water 25 ML ASDIR PRN IV Enoxaparin Sodium 40 MG DAILY 0800 SUBQ Glucagon 1 MG ASDIR PRN IM Acetaminophen 650 MG Q6H PRN PRN PO Guaifenesin 10 ML Q6H PRN PRN PO (CKD) Hydralazine HCl 10 MG Q6H PRN PRN IV Lactulose 30 ML BID PRN PRN PO (CKD) Ondansetron HCl 4 MG Q6H PRN PRN IV Nutrtion assessment: The data set between the solid lines has been im ported from the dietitian's assessment. Any exceptions have been noted under Provider comments. BMI Calculated: 24.5 Nutrition related diagnosis: Nutrition diagnosis details: Nutrition problem: Nutrition etiology: Nutrition signs and symptoms: Nutrition prescription: Dietitian name: Assessment completed: Provider comments on imported dietitian assessme nt: Physical Exam Wound/incision: Location: Right foot open wound at the webspace between th e 3d and 4th toes, still some purulent drainage from the plantar lateral aspect of the wound, with granulation tissue, but no toe ischemia, edema a nd erythema are improving, nontender. HEENT: PERRLA Neck: full range of motion, no JVD Cardiovascular: normal heart sounds, regular rat e and rhythm, no murmur Respiratory: clear to auscultation, no distress Abdomen: normal bowel sounds, soft, no distentio n, no hernia Genitourinary - Male: no bladder distention, no flank pain, no cid Musculoskeletal: full range of motion Neuro/AIRLINE COUNTER AGENT: alert, oriented x 3 Considered stroke alert: no Lymphatics: axilla normal, inguinal normal, neck normal Psychiatry: normal affect, normal judgment/insig ht, normal mood Diagnosis, Assessment Plan Hospital course to date: Post right foot abscess I D. Still some purulent r discharge from the lateral plantar area, from the base of 5th and 4th toes, toes with no ischemia. Surrounding eddema and erythema. Cultures growin g Staph. aureus. Continue abx and wound care as ordered. at 1246 RPT #:[id number] END OF REPORT 2019-12-07 23:37:00-00:00 [facility] Infectious Dis. Progress Note REPORT#:[id number] REPORT STATUS: Signed DATE:12/07/19 TIME: 2336 PATIENT: RADHA CARPENTER UNIT #: [id number] ROOM/BED: [address] : 82 AGE: 39 SEX: M ATTEND: Joe Wolf MD ADM AUTHOR: Arline Cash * ALL edits or amendments must be made on the el [facility]/computer document * Subjective Chief Complaint: Infectious disease progress note Reason for follow-up: Right foot abscess Antibiotics: Vancomycin 12/05- Zosyn 12/05- Clindamycin discontinued Subjective Patient has remained afebrile, evaluated today d uring wound dressing change, patient with significant wou nd between the webspaces of the first and second toe that is deep visualized tendons no visible bone, no granulation tissue no necrosis minimal bleeding. Persistently hypergly cemic. Objective General VS/I O: Last Documented: Result Date Time Pulse Ox 97 12/07 2215 B/P 148/89 12/07 2215 B/P Mean 108.7 12/07 2215 O2 Delivery Room air 12/07 2215 Temp 98.6 12/07 2215 Pulse 100 12/07 2215 Resp 12 12/07 2215 Vital Signs Date Temp Pulse Resp B/P B/P Mean Pulse Ox FiO2 12/06 97.7-98.6 94-108 12-18 144-148/88-94 106. 6-111.9 95-99 24 hour I O ending at 0700: 12/06 0700 12/05 1900 Intake Total 300.00 100.00 Output Total Balance 300.00 100.00 Intake, IV 300.00 100.00 Number 3 Bowel Movements Number Voids 2 3 Patient Weight Weight (lb): Weight (oz): Weight (kg): 84.091 Physical Exam General appearance: chronically ill appearing, a lert, awake, oriented Head/Eyes: normal conjunctiva/sclera ENT: normal dentition Neck: supple/no meningismus Cardiovascular: normal heart sounds Respiratory: symmetric expansion Abdomen: no distention Extremities: abnormal capillary refill Considered stroke alert: no Free Text Obj Notes Free Text Obj Notes: R foot wound between the webspaces of the first and second toe that is deep visualized tendons no visible bone, no granulati on tissue no necrosis minimal bleeding. Diagnosis, Assessment Plan Free Text A P: 1. Right foot plantar ulcer with associated cell ulitis and abscess. Bone scan suggestive of osteomyelitis. Operative note described abscess extending from the first metatarsal phalanx joint distally towards the webspace between the great and second toe interosseous space and the second toe interspace between the first and second metatarsal bones. Debridement down to fascia, no bone sent for histopathology. Cultures growing coagulase posit colt staphyloccocus 2. Uncontrolled diabetes type 1 with hemoglobin A1c of 11.2 3. Gastroparesis Plan Continue with Zosyn Continue with vancomycin, pharmacy assisting in dosing We will monitor renal function We will follow cultures until finalized, growing coagulase positive staphyloccocus Debridement down to fascia, no bone was sent for histopathology. Bone scan findings nonspecific. Significantly elev ated CRP and sed rate. Given high risk for complications I would rather treat t his patient as an osteomyelitis with 6 weeks of antibiotic treatment. at 2344 RPT #:[id number] END OF REPORT 2019-12-07 20:38:00-00:00 [facility] Hospitalist Progress Note REPORT#:[id number] REPORT STATUS: Signed DATE:12/07/19 TIME: 2037 PATIENT: RADHA CARPENTER UNIT #: [id number] ROOM/BED: [address] : [birth year] AGE: 39 SEX: M ATTEND: Joe Wolf MD ADM AUTHOR: Joe Wolf MD * ALL edits or amendments must be made on the [employer]/computer document * Subjective Chief Complaint: Patient admitted due to infected left foot. Bon e scan showed OM to right foot 2,3,4 metatartsals. Also some light up on his left ankle but he denies any pain or fracture to thsi ankle. He underwen t I D by surgeon today. T Patient on IV antibiotic therapy. Patient also suffering from gastroparesis. The patient screwy no complaint of any nausea vomiting but unable to advance di et because of abdominal pain. In the past this patient has been fully w orked out for gastroparesis including several gastric emptying study that h ave been normal. The patient has an implanted gastric stimulator marin t apparently is no longer working. The patient has been sent multiple joe es to [place] to a specialist but has never follow-up. Last time t he patient was under my care in a.m. where he fired me because I did no t want to perpetuate Dilaudid IV and he refused Dilaudid p.o. He see ms not to have any problems with me on this admission. Patient cannot have an MRI because of implantab le device in his abdomen. There is highly suspected osteomyelitis to his right foot. Patient denies any signs of COVID infection. Review of Systems All systems rev neg: except as marked Objective Physical Exam General appearance: alert, awake, oriented Head/Eyes: atraumatic, clear cornea, EOMI, PERRL ENT: normal dentition, normal pharynx Neck: full range of motion, non-tender, no JVD Cardiovascular: normal capillary refill, normal heart sounds, regular rate rhythm Respiratory: aerating well, clear to auscultatio n, symmetric expansion Abdomen: tenderness (epigastric), soft, no diste ntion Extremities: moves all, no cyanosis, no edema Skin: Plantar abscess at the base of the right m etatarsal tender w underlying pus Wound/incision: Location: right foot sp I D, deep 7cm linear incison all t he way down to fascia w/o major bleeding Lymphatics: axilla normal, no lymphadenopathy Psychiatry: normal affect, no hallucinations Results Findings/Data: Laboratory Tests 12/06 12/06 12/06 12/06 12/06 1938 1610 1610 1118 0710 Chemistry POC Glucose (70 - 105 mg/dL) 239 H 162 H 276 H 238 H C-React Prot High Sens (0.0 - 3.0) 54.80 H 12/05 2119 Chemistry POC Glucose (70 - 105 mg/dL) 212 H Laboratory Tests 12/06 1610 Hematology ESR Westergren (0 - 15 mm/hr) 134 H Diagnosis, Assessment Plan Hospital course to date: Right Diabetic Foot/ abscess, Right foot osteomyelitis long standing hx of Uncontrolled DM1, multiple c omplications Gastroparesis. Anxiety plan Admitted to medical floor Continue Vanco and Clindamycin empiric antibioti cs Consult ID for OM, monitor wound cultures Continue with home medications Regular Insulin sliding scale. Continue with agg ressive management of his diabetes and hyperglycemia as this seems to be t he most significant factor controlling his gastroparesis. Discontinue morphine and switch to Dilau did as morphine as per in the past not to be effective. Continue the patient on Reglan continue with Zof ran PRN symptomatic tx for pain at 2039 RPT #:[id number] END OF REPORT 2019-12-07 15:23:00-00:00 [facility] General Surgery Progress Note REPORT#:[id number] REPORT STATUS: Signed DATE:12/07/19 TIME: 1523 PATIENT: RADHA CARPENTER UNIT #: [id number] [facility] AGE: 39 SEX: M ATTEND: Joe Wolf MD ADM AUTHOR: Simone Cabrera * ALL edits or amendments must be made on the [employer]/computer document * General Status post: Status post right foot abscess I D Antibiotics: day 2 Subjective Patient reports: Yes: abdominal pain, pain controlled. Comments: Right foot open wound with minimal pain Review of Systems Constitutional: Reports: malaise. Denies: chills, fever. Eyes: Denies: itching, eye pain, swelling. Respiratory: Denies: non productive cough, pleuritic pain, SO B. GI: Reports: abdominal pain, nausea. Denies: constip ation, diarrhea, vomiting. : Denies: dysuria, flank pain, hematuria. Musculoskeletal: Other musculoskeletal: Reports: other. Objective General VS/I O: Last Documented: Result Date Time Pulse Ox 99 12/06 1446 B/P 144/88 12/06 1446 B/P Mean 106.6 12/06 1446 O2 Delivery Room air 12/06 1446 Temp 98.1 12/06 1446 Pulse 108 12/06 1446 Resp 12 12/06 1446 Vital Signs Date Temp Pulse Resp B/P B/P Mean Pulse Ox FiO2 12/05-12/06 97.9-98.2 94-108 12- 122-148/73-94 95.2-111.9 95-99 24 hour I O ending at 0700: 12/06 0700 12/05 1900 Intake Total 300.00 100.00 Output Total Balance 300.00 100.00 Intake, IV 300.00 100.00 Number 3 Bowel Movements Number Voids 2 3 Patient Weight Weight (lb): Weight (oz): Weight (kg): 84.091 Medications: Active Meds + DC'd Last 24 Hrs Morphine Sulfate 4 MG Q4H PRN PRN IV Piperacillin Sod/Tazobactam Sod 3.375 GM Q8HR IV Sodium Chloride 100 ML Q8HR IV Sodium Hypochlorite IRRIGATE BID IRR Vancomycin HCl 1 EACH ASDIR IV (CKD) Vancomycin HCl 1,500 MG Q12H IV Sodium Chloride 300 ML Hydrocodone Bitart/Acetaminophen 1 TAB Q8H PRN P RN PO Lactated Ringer's 1,000 ML ASDIR IV Ketorolac Tromethamine 15 MG Q8H PRN PRN IV Hydromorphone HCl 0.5 MG Q4H PRN PRN IV Hydrochlorothiazide 12.5 MG DAILY PO Lisinopril 10 MG DAILY PO Undefined Medication 20 UNIT DAILY SUBQ Device 1 SYRINGE Famotidine 20 MG BEDTIME PO Nortriptyline HCl 50 MG BEDTIME PO Simvastatin 10 MG BEDTIME PO Zolpidem Tartrate 10 MG BEDTIME PO (DC) Insulin Human Regular SLIDING SCALE AC HS SUBQ Sucralfate 1 GM AC HS PO Dextrose/Water 25 ML ASDIR PRN IV Enoxaparin Sodium 40 MG DAILY 0800 SUBQ Glucagon 1 MG ASDIR PRN IM Acetaminophen 650 MG Q6H PRN PRN PO Guaifenesin 10 ML Q6H PRN PRN PO (CKD) Hydralazine HCl 10 MG Q6H PRN PRN IV Lactulose 30 ML BID PRN PRN PO (CKD) Ondansetron HCl 4 MG Q6H PRN PRN IV Nutrtion assessment: The data set between the solid lines has been im ported from the dietitian's assessment. Any exceptions have been noted under Provider comments. BMI Calculated: 24.5 Nutrition related diagnosis: Nutrition diagnosis details: Nutrition problem: Nutrition etiology: Nutrition signs and symptoms: Nutrition prescription: Dietitian name: Assessment completed: Provider comments on imported dietitian assessme nt: Physical Exam General appearance: altered mental status, awake , oriented Wound/incision: Location: Right foot open wound at the webspace between th e 3d and 4th toes, still some purulent drainage from the l ateral aspect of the wound, with granulation tissue, but no toe ischemia, edema and erythema are impr oving, nontender. HEENT: PERRLA Neck: full range of motion, no JVD Cardiovascular: normal heart sounds, regular rat e and rhythm, no murmur Respiratory: clear to auscultation, no distress Abdomen: normal bowel sounds, soft, no distentio n, no hernia Genitourinary - Male: no bladder distention, no flank pain, no cid Musculoskeletal: full range of motion Neuro/AIRLINE COUNTER AGENT: alert, oriented x 3 Considered stroke alert: no Lymphatics: axilla normal, inguinal normal, neck normal Psychiatry: normal affect, normal judgment/insig ht, normal mood Results Findings/Data: Laboratory Tests 12/06 12/06 12/05 12/05 1118 0710 2119 1642 Chemistry POC Glucose (70 - 105 mg/dL) 276 H 238 H 212 H 236 H Patient continue with antibiotic therapy, pendin g to have definitive cultures result. ID service on board. Continue wound care as ordered. at 1535 RPT #:[id number] END OF REPORT 2019-12-06 22:59:00-00:00 [facility] Infect Disease Consult Note REPORT#:[id number] REPORT STATUS: Signed DATE:12/06/19 TIME: 2258 PATIENT: RADHA CARPENTER UNIT #: [id number] ROOM/BED: [address] : [birth year] AGE: 39 SEX: M ATTEND: Joe Wolf MD ADM AUTHOR: Arline Cash * ALL edits or amendments must be made on the [employer]/computer document * History of Present Illness Free Text HPI Notes Free Text HPI Notes: Infectious disease consultation note Referring physician: Dr. Joe Rivera Reason for consultation: Right diabetic foot inf ection Patient is a 39-year-old man with medical history significant for diabetes type 1 who presented to the [facility] on [facility] with right plantar ulcer with associated cellulitis and abscess. No wound cultures collec ghazala on admission. Patient was started on vancomycin and Zosyn and antibiotics were later changed to clindamycin. Radiological studies included right foot x-ray was negative for osteomyelitis and a bone scan that showed increa sed radiotracer activity involving the right 3rd-5th digits suggestive of OM. That clinically correlated with patient's presentation. Patient underwent surgical intervention on 12/[address] Diaz. Intraoperative findings were significant for a right plantar ulcer extending from the first metatarsal phalanx join t with necrotic component distally towards the webspace between the great and second toe interosseous space between the first and second metatarsal bones. In the operative note they describe the infected tissue was mostly plantar fat and tissue at the plantar aspect of the great and second child wit h no evidence of ischemia. Debridement was down to fascia no mentio n of bone specimen sent to histopathology. Cultures are growing 3+ gram-positive cocci. Surgical pat hology results described cellulitis and abscess. Postoperative dressings are still in place when I examined patient. Currently without fever mild l eukocytosis. Persistently hyperglycemic and very uncontrolled diabetes wit h hemoglobin A1c of 11.3 History - Adult longitudinal Past medical history: Reports: Diabetes mellitus. Past surgical history: Reports: Cholecystectomy. Additional family history: Reviewed, Noncontributory Alcohol use: Denies EtOH use Drug use: Denies recreational drugs Smoking status for patients 13 years old or olde r: Never Smoker Allergies: Coded Allergies: clonidine (ANXIETY 05/20/19) metoclopramide (From REGLAN) (JERKS AND SPASMS 0 12/01/19) Objective General VS/I O: Last Documented: Result Date Time Pulse Ox 97 12/05 2145 B/P 122/84 12/05 2145 B/P Mean 96.5 12/05 2145 O2 Delivery Room air 12/05 2145 Temp 97.9 12/05 214 Pulse 100 12/05 2145 Resp 18 12/05 2145 Vital Signs Date Temp Pulse Resp B/P B/P Mean Pulse Ox FiO2 12/05 97.9-98.8 93-110 - 122-139/73-84 95.2 -98.9 95-98 24 hour I O ending at 0700: 12/06 0700 12/05 1900 Intake Total 300.00 100.00 Output Total Balance 300.00 100.00 Intake, IV 300.00 100.00 Number 3 Bowel Movements Number Voids 2 3 Patient Weight Weight (lb): Weight (oz): Weight (kg): 84.091 Results Findings/Data: Laboratory Tests 12/05 12/05 12/05 12/05 12/05 2119 1642 1153 0756 0756 Chemistry Sodium (136 - 145 mmol/L) 136 Potassium (3.5 - 5.1 mmol/L) 3.8 Chloride (98 - 107 mmol/L) 101 Carbon Dioxide (21 - 32 mmol/L) 27 BUN (7 - 18 mg/dL) 12 Creatinine (0.67 - 1.17 mg/dL) 0.90 Estimated GFR (MDRD) (>=60) > 60.00 Glucose (70 - 100 mg/dL) 337 H POC Glucose (70 - 105 mg/dL) 212 H 236 H 300 H 330 H Calcium (8.5 - 10.1 mg/dL) 8.6 Laboratory Tests 12/05 0756 Hematology WBC (4.5 - 11.0 X10(3)) 12.7 H RBC (4.3 - 5.9 X10(6)) 3.83 L Hgb (13.5 - 18.0 g/dL) 11.6 L Hct (42.0 - 52.0 %) 35.8 L MCV (78 - 100 fl) 93.5 MCH (26.0 - 34.0 pg) 30.3 MCHC (30.0 - 37.0 g/dl) 32.4 RDW (11.5 - 14.5 %) 11.9 Plt Count (150 - 350 X10(3)) 511 H MPV (8.7 - 11.4 fl) 9.3 Neut % (Auto) (36.0 - 66.0 %) 73.5 H Lymph % (Auto) (16.0 - 50.0 %) 17.9 Dixie % (Auto) (0.0 - 13.0 %) 6.6 Eos % (Auto) (0.0 - 4.5 %) 0.5 Baso % (Auto) (0.0 - 1.5 %) 0.3 Immature Gran # (Auto) (0.00 - 0.03 X10(3)uL) 0.15 H Absolute Neuts (auto) (1.70 - 7.70 X10(3)) 9.35 H Absolute Lymphs (auto) (0.70 - 4.00 X10(3)) 2.2 7 Absolute Monos (auto) (0.00 - 0.89 X10(3)) 0.84 Absolute Eos (auto) (0.00 - 0.60 X10(3)) 0.06 Absolute Basos (auto) (0.00 - 0.20 X10(3)) 0.04 Absolute Nucleated RBC (0.0 - 0.1 K/mm3) 0.00 Immature Gran % (0.0 - 2.0 %) 1.2 Nucleated RBC % (0 - 0.2 %) 0.0 Platelet Estimate (ADEQUATE) INCREASED Morphology Comment NORMAL Free Text Obj Notes Free Text Obj Notes: General: Awake, oriented, does not look toxic. I n no distress. HEENT: No thrush, oral mucosa is moist Heart: Regular rate and rhythm Lungs: Symmetrical chest expansion, no respirato ry distress Abdomen: Nondistended, no pain. Genitourinary: No Cid Extremities: Right foot with surgical dressings in place Skin: No rash Neurologic: No gross neurological deficits Psychiatric: Appropriate mood and affect Diagnosis, Assessment Plan Free Text DxA P Notes Free text DxA P notes: 1. Right foot plantar ulcer with associated cell ulitis and abscess. Bone scan suggestive of osteomyelitis. Operative note described abscess extending from the first metatarsal phalanx joint distally towards the webspace between the great and second toe interosseous space and the second toe interspace between the first and second metatarsal bones. Debridement down to fascia, no bone sent for histopathology. Cultures growing gram-positive c occi. 2. Uncontrolled diabetes type 1 with hemoglobin A1c of 11.2 3. Gastroparesis Plan Continue with Zosyn Continue with vancomycin, pharmacy assisting in dosing We will monitor renal function We will follow cultures until finalized CRP Sedimentation rate Clinical picture is unclear to me was consulted after patient was treated and surgical dressings are still in place. Debrideme nt down to fascia so no bone was sent for histopathology. Bone scan findings nonspecific. Given high risk for complications I would rather treat t his patient as an osteomyelitis with 6 weeks of antibiotic treatment. Thank you for the courtesy o f this consultation. I will continue to follow this patient with you. at 0581 RPT #:[id number] END OF REPORT 2019-12-06 21:40:00-00:00 [facility] Hospitalist Progress Note REPORT#:[id number] REPORT STATUS: Signed DATE:12/06/19 TIME: 2139 PATIENT: RADHA CARPENTER UNIT #: [id number] [facility] AGE: 39 SEX: M ATTEND: Joe Wolf MD ADM AUTHOR: Joe Wolf MD * ALL edits or amendments must be made on the [employer]/computer document * Subjective Chief Complaint: Patient admitted due to infected left foot. Bone scan showed OM to right foot 2,3,4 metatartsals. Also some light up on h is left ankle but he denies any pain or fracture to thsi ankle. He underwent I D by surgeon today. T Patient on IV antibiotic therapy. Patient also suffering from gastroparesis. The p atient screwy no complaint of any nausea vomiting but unable to advance t because of abdominal pain. In the past this patient has been fully wo rked out for gastroparesis including several gastric emptying study that pretty ve been normal. The patient has an implanted gastric stimulator that apparently is no longer working. The patient has been sent multiple time s to [place] to a specialist but has never follow-up. Last time th e patient was under my care in a.m. where he fired me because I did not want to perpetuate Dilaudid IV and he refused Dilaudid p.o. He see ms not to have any problems with me on this admission. Patient cannot have an MRI because of implantabl e device in his abdomen. There is highly suspected osteomyelitis to his r ight foot. Patient denies any signs of COVID infection. Review of Systems All systems rev neg: except as marked Objective General VS/I O: Vital Signs: Date Time Temp Pulse Resp B/P B/P Pulse O2 O2 Flow FiO2 Mean Ox Delivery Rate 12/05 1847 36.8 99 20 139/73 95.2 98 Room air 12/05 1516 97 Room air 12/05 1443 36.7 93 16 125/81 95.9 97 Room air 12/05 0636 37.1 110 17 131/83 98.9 95 12/04 2348 37.0 112 15 129/78 94.8 96 12/04 2252 95 Room air 24 hour I O ending at 0700: 12/05 0700 12/04 1900 Intake Total 700.00 Output Total Balance 700.00 Intake, IV 700.00 Patient Weight Weight (lb): Weight (oz): Weight (kg): 84.091 Medications: Active Meds + DC'd Last 24 Hrs Morphine Sulfate 4 MG Q4H PRN PRN IV Piperacillin Sod/Tazobactam Sod 3.375 GM Q8HR IV Sodium Chloride 100 ML Q8HR IV Sodium Hypochlorite IRRIGATE BID IRR Vancomycin HCl 1 EACH ASDIR IV (CKD) Vancomycin HCl 1,500 MG Q12H IV Sodium Chloride 300 ML Clindamycin HCl 50 ML Q8HR IV (DC) Hydrocodone Bitart/Acetaminophen 1 TAB Q8H PRN P RN PO Lactated Ringer's 1,000 ML ASDIR IV Ketorolac Tromethamine 15 MG Q8H PRN PRN IV Hydromorphone HCl 0.5 MG Q4H PRN PRN IV Hydrochlorothiazide 12.5 MG DAILY PO Lisinopril 10 MG DAILY PO Undefined Medication 20 UNIT DAILY SUBQ Device 1 SYRINGE Famotidine 20 MG BEDTIME PO Nortriptyline HCl 50 MG BEDTIME PO Simvastatin 10 MG BEDTIME PO Zolpidem Tartrate 10 MG BEDTIME PO Insulin Human Regular SLIDING SCALE AC HS SUBQ Sucralfate 1 GM AC HS PO Dextrose/Water 25 ML ASDIR PRN IV Enoxaparin Sodium 40 MG DAILY 0800 SUBQ Glucagon 1 MG ASDIR PRN IM Acetaminophen 650 MG Q6H PRN PRN PO Guaifenesin 10 ML Q6H PRN PRN PO (CKD) Hydralazine HCl 10 MG Q6H PRN PRN IV Lactulose 30 ML BID PRN PRN PO (CKD) Morphine Sulfate 4 MG Q4H PRN PRN IV (DC) Ondansetron HCl 4 MG Q6H PRN PRN IV Physical Exam General appearance: alert, awake, oriented Head/Eyes: atraumatic, clear cornea, EOMI, PERRL ENT: normal dentition, normal pharynx Neck: full range of motion, non-tender, no JVD Cardiovascular: normal capillary refill, normal heart sounds, regular rate rhythm Respiratory: aerating well, clear to auscultatio n, symmetric expansion Abdomen: tenderness (epigastric), soft, no diste ntion Extremities: moves all, no cyanosis, no edema Skin: Plantar abscess at the base of the right m etatarsal tender w underlying pus Wound/incision: Location: right foot sp I D, deep 7cm linear incison all t he way down to fascia w/o major bleeding Lymphatics: axilla normal, no lymphadenopathy Psychiatry: normal affect, no hallucinations Results Findings/Data: Laboratory Tests 12/05 12/05 12/05 12/05 12/05 2119 1642 1153 0756 0756 Chemistry Sodium (136 - 145 mmol/L) 136 Potassium (3.5 - 5.1 mmol/L) 3.8 Chloride (98 - 107 mmol/L) 101 Carbon Dioxide (21 - 32 mmol/L) 27 BUN (7 - 18 mg/dL) 12 Creatinine (0.67 - 1.17 mg/dL) 0.90 Estimated GFR (MDRD) (>=60) > 60.00 Glucose (70 - 100 mg/dL) 337 H POC Glucose (70 - 105 mg/dL) 212 H 236 H 300 H 330 H Calcium (8.5 - 10.1 mg/dL) 8.6 12/04 2242 Chemistry POC Glucose (70 - 105 mg/dL) 284 H Laboratory Tests 12/05 0756 Hematology WBC (4.5 - 11.0 X10(3)) 12.7 H RBC (4.3 - 5.9 X10(6)) 3.83 L Hgb (13.5 - 18.0 g/dL) 11.6 L Hct (42.0 - 52.0 %) 35.8 L MCV (78 - 100 fl) 93.5 MCH (26.0 - 34.0 pg) 30.3 MCHC (30.0 - 37.0 g/dl) 32.4 RDW (11.5 - 14.5 %) 11.9 Plt Count (150 - 350 X10(3)) 511 H MPV (8.7 - 11.4 fl) 9.3 Neut % (Auto) (36.0 - 66.0 %) 73.5 H Lymph % (Auto) (16.0 - 50.0 %) 17.9 Dixie % (Auto) (0.0 - 13.0 %) 6.6 Eos % (Auto) (0.0 - 4.5 %) 0.5 Baso % (Auto) (0.0 - 1.5 %) 0.3 Immature Gran # (Auto) (0.00 - 0.03 X10(3)uL) 0 .15 H Absolute Neuts (auto) (1.70 - 7.70 X10(3)) 9.35 H Absolute Lymphs (auto) (0.70 - 4.00 X10(3)) 2.2 7 Absolute Monos (auto) (0.00 - 0.89 X10(3)) 0.84 Absolute Eos (auto) (0.00 - 0.60 X10(3)) 0.06 Absolute Basos (auto) (0.00 - 0.20 X10(3)) 0.04 Absolute Nucleated RBC (0.0 - 0.1 K/mm3) 0.00 Immature Gran % (0.0 - 2.0 %) 1.2 Nucleated RBC % (0 - 0.2 %) 0.0 Platelet Estimate (ADEQUATE) INCREASED Morphology Comment NORMAL Diagnosis, Assessment Plan Hospital course to date: Right Diabetic Foot/ abscess, Right foot osteomyelitis long standing hx of Uncontrolled DM1, multiple c omplications Gastroparesis. Anxiety plan Admitted to medical floor Continue Vanco and Clindamycin empiric antibioti cs Consult ID for OM, monitor wound cultures Continue with home medications Regular Insulin sliding scale. Continue with agg ressive management of his diabetes and hyperglycemia as this seems to be t he most significant factor controlling his gastroparesis. Discontinue morphine and switch to Dilau did as morphine as per in the past not to be effective. Continue the patient on Reglan continue with Zof ran PRN symptomatic tx for pain at 2148 RPT #:[id number] END OF REPORT 2019-12-06 07:50:00-00:00 [facility] Podiatry Progress Note REPORT#:[id number] REPORT STATUS: Signed DATE:12/06/19 TIME: 0750 PATIENT: RADHA CARPENTER UNIT #: [id number] ROOM/BED: [address] : 84 AGE: 39 SEX: M ATTEND: Joe Wolf MD ADM AUTHOR: Rosalina Morales DPM * ALL edits or amendments must be made on the [employer] document * General VS/I O: Last Documented: Result Date Time Pulse Ox 95 12/05 06 B/P 131/83 12/05 0636 B/P Mean 98.9 12/05 0636 Temp 37.1 12/05 0636 Pulse 110 12/05 0636 Resp 17 12/05 0636 O2 Delivery Room air 12/04 2252 24 hour I O ending at 0700: 12/05 0700 12/04 1900 Intake Total 700.00 Output Total Balance 700.00 Intake, IV 700.00 Patient Weight Weight (lb): Weight (oz): Weight (kg): 84.091 a second consult was placed to genaral surgery , DR Diaz took over . no need for my consult please remove patient from my list at 0751 RPT #:[id number] END OF REPORT 2019-12-05 19:28:00-00:00 [facility] Hospitalist Progress Note REPORT#:[id number] REPORT STATUS: Signed DATE:12/05/19 TIME: 1927 PATIENT: RADHA CARPENTER UNIT #: [id number] ROOM/BED: [address] : 84 AGE: 39 SEX: M ATTEND: Joe Wolf MD ADM AUTHOR: Joe Wolf MD * ALL edits or amendments must be made on the [employer] document * Subjective Chief Complaint: Patient admitted due to infe cted left foot. Bone scan showed OM to right foot 2, 3,4 metatartsals. Also some light up on his left ankle but he denies any pain or fracture to thsi ankle. He underwent I D by surg anni today. T Patient on IV antibiotic therapy. Patient also suffering from gastroparesis. The p atient screwy no complaint of any nausea vomiting but unable to advance t because of abdominal pain. In the past this patient has been fully wo rked out for gastroparesis including several gastric emptying study that pretty ve been normal. The patient has an implanted gastric stimulator that apparently is no longer working. The patient has been sent multiple time s to [place] to a specialist but has never follow-up. Last time e patient was under my care in a.m. where he fired me because I did not want to perpetuate Dilaudid IV and he refused Dilaudid p.o. He seem s not to have any problems with me on this admission. Patient cannot have an MRI because of implantabl e device in his abdomen. There is highly suspected osteomyelitis to his r ight foot. Patient denies any signs of COVID infection. Review of Systems All systems rev neg: except as marked Objective General VS/I O: Vital Signs: Date Time Temp Pulse Resp B/P B/P Pulse O2 O2 F low FiO2 Mean Ox Delivery Rate 12/04 1810 37.0 103 18 153/92 112.4 97 12/04 1339 36.6 98 18 121/78 92.0 98 / 1339 36.6 98 18 121/78 92.0 98 12/04 1320 36.4 96 14 122/62 96 Room air 12/04 1310 95 19 132/59 97 / 1300 97 15 120/63 96 Room air 12/04 1250 101 21 117/74 97 12/04 1243 36.4 105 18 97/58 97 Room air 12/04 1110 36.7 103 20 144/93 97 Room air 12/04 0635 36.9 97 12 126/83 97.3 95 Room air 12/03 2313 37.1 108 12 120/57 77.8 95 Room air 24 hour I O ending at 0700: 12/04 0700 12/03 1900 Intake Total Output Total 750 800 Balance -750 -800 Output, Urine 750 800 Patient Weight Weight (lb): Weight (oz): Weight (kg): 84.091 Medications: Active Meds + DC'd Last 24 Hrs Sodium Hypochlorite IRRIGATE BID IRR Vancomycin HCl 1 EACH ASDIR IV (CKD) Vancomycin HCl 1,500 MG Q12H IV Sodium Chloride 300 ML Clindamycin HCl 50 ML Q8HR IV Hydrocodone Bitart/Acetaminophen 1 TAB Q8H PRN P RN PO Lactated Ringer's 1,000 ML ASDIR IV Hydromorphone HCl 0 .STK-MED ONE .ROUTE (DC) Sodium Hypochlorite 0 .STK-MED ONE TOPICAL (DC) Hydromorphone HCl 0.5 MG PACU Q10MIN PRN PRN IV (DC) Ondansetron HCl 0 .STK-MED ONE .ROUTE (DCr) Promethazine HCl 25 MG PACU ONCE IM (DC) Fentanyl Citrate 0 .STK-MED ONE .ROUTE (DCr) Midazolam HCl 0 .STK-MED ONE .ROUTE (DCr) Propofol 0 .STK-MED ONE IV (DCr) Cefazolin Sodium 2,000 MG ONCALL IV (DC) Cefazolin Sodium 0 .STK-MED ONE IV (DC) Sodium Chloride 10 ML ASDIR IV (DC) Sodium Chloride 20 ML .STK-MED ONE IV (DC) Lidocaine HCl 0 .STK-MED ONE .ROUTE (DC) Sodium Chloride 250 ML .STK-MED ONE IV (DC) Midazolam HCl 0 .STK-MED ONE .ROUTE (DCr) Lactated Ringer's 1,000 ML PREOP IV (DC) Midazolam HCl 2 MG PREOP IV (DC) Ketorolac Tromethamine 15 MG Q8H PRN PRN IV Hydromorphone HCl 0.5 MG Q4H PRN PRN IV Hydrochlorothiazide 12.5 MG DAILY PO Lisinopril 10 MG DAILY PO Undefined Medication 20 UNIT DAILY SUBQ Device 1 SYRINGE Famotidine 20 MG BEDTIME PO Nortriptyline HCl 50 MG BEDTIME PO Simvastatin 10 MG BEDTIME PO Zolpidem Tartrate 10 MG BEDTIME PO Insulin Human Regular SLIDING SCALE AC HS SUBQ Sucralfate 1 GM AC HS PO Dextrose/Water 25 ML ASDIR PRN IV Enoxaparin Sodium 40 MG DAILY 0800 SUBQ Glucagon 1 MG ASDIR PRN IM Acetaminophen 650 MG Q6H PRN PRN PO Guaifenesin 10 ML Q6H PRN PRN PO (CKD) Hydralazine HCl 10 MG Q6H PRN PRN IV Hydrocodone Bitart/Acetaminophen 1 TAB Q6H PRN P RN PO (DC) Lactulose 30 ML BID PRN PRN PO (CKD) Morphine Sulfate 4 MG Q4H PRN PRN IV Ondansetron HCl 4 MG Q6H PRN PRN IV Physical Exam General appearance: alert, awake, oriented Head/Eyes: atraumatic, clear cornea, EOMI, PERRL ENT: normal dentition, normal pharynx Neck: full range of motion, non-tender, no JVD Cardiovascular: normal capillary refill, normal heart sounds, regular rate rhythm Respiratory: aerating well, clear to auscultatio n, symmetric expansion Abdomen: tenderness (epigastric), soft, no diste ntion Extremities: moves all, no cyanosis, no edema Wound/incision: Location: right foot sp I D, deep 7cm linear incison all the way down to fascia w/o major bleeding Lymphatics: axilla normal, no lymphadenopathy Psychiatry: normal affect, no hallucinations Results Findings/Data: Laboratory Tests 12/04 12/04 12/04 12/04 12/03 1820 1311 0801 0801 2138 Chemistry Sodium (136 - 145 mmol/L) 135 L Potassium (3.5 - 5.1 mmol/L) 3.4 L Chloride (98 - 107 mmol/L) 100 Carbon Dioxide (21 - 32 mmol/L) 30 BUN (7 - 18 mg/dL) 11 Creatinine (0.67 - 1.17 mg/dL) 0.80 Estimated GFR (MDRD) (>=60) > 60.00 Glucose (70 - 100 mg/dL) 248 H POC Glucose (70 - 105 mg/dL) 269 H 202 H 240 H 208 H Calcium (8.5 - 10.1 mg/dL) 9.2 Laboratory Tests 12/04 08 Coagulation PT (8.7 - 12.1 SECONDS) 9.9 INR 0.9 APTT (22.8 - 34.4 seconds) 29.3 Laboratory Tests 12/04 08 Hematology WBC (4.5 - 11.0 X10(3)) 11.9 H RBC (4.3 - 5.9 X10(6)) 4.16 L Hgb (13.5 - 18.0 g/dL) 12.5 L Hct (42.0 - 52.0 %) 38.7 L MCV (78 - 100 fl) 93.0 MCH (26.0 - 34.0 pg) 30.0 MCHC (30.0 - 37.0 g/dl) 32.3 RDW (11.5 - 14.5 %) 11.9 Plt Count (150 - 350 X10(3)) 520 H MPV (8.7 - 11.4 fl) 9.3 Neut % (Auto) (36.0 - 66.0 %) 69.7 H Lymph % (Auto) (16.0 - 50.0 %) 20.0 Dixie % (Auto) (0.0 - 13.0 %) 7.8 Eos % (Auto) (0.0 - 4.5 %) 0.9 Baso % (Auto) (0.0 - 1.5 %) 0.4 Immature Gran # (Auto) (0.00 - 0.03 X10(3)uL) 0 .14 H Absolute Neuts (auto) (1.70 - 7.70 X10(3)) 8.27 H Absolute Lymphs (auto) (0.70 - 4.00 X10(3)) 2.3 8 Absolute Monos (auto) (0.00 - 0.89 X10(3)) 0.9 3 H Absolute Eos (auto) (0.00 - 0.60 X10(3)) 0.11 Absolute Basos (auto) (0.00 - 0.20 X10(3)) 0.05 Absolute Nucleated RBC (0.0 - 0.1 K/mm3) 0.00 Immature Gran % (0.0 - 2.0 %) 1.2 Nucleated RBC % (0 - 0.2 %) 0.0 Diagnosis, Assessment Plan Hospital course to date: Right Diabetic Foot/ abscess, Right foot osteomyelitis long standing hx of Uncontrolled DM1, multiple c omplications Gastroparesis. Anxiety plan Admitted to medical floor Continue Vanco and Clindamycin empiric antibioti cs Consult ID for OM Continue with home medications Regular Insulin sliding scale. Continue with agg ressive management of his diabetes and hyperglycemia as this seems to be t he most significant factor controlling his gastroparesis. Discontinue morphine and switch to Dilau did as morphine as per in the past not to be effective. Continue the patient on Reglan continue with Zof ran PRN symptomatic tx for pain at 1933 RPT #:[id number] END OF REPORT 2019-12-05 13:53:00-00:00 [facility] Pharmacy Prog.Note-Vancomycin REPORT#:[id number] REPORT STATUS: Signed DATE:12/05/19 TIME: 1353 PATIENT: RADHA CARPENTER UNIT #: [id number] ROOM/BED: [address] : 82 AGE: 39 SEX: M ATTEND: Joe Wolf MD ADM AUTHOR: [facility] * ALL edits or amendments must be made on the [facility]/computer document * Vancomycin Vancomycin Medication Therapy: Vancomycin Goal trough: 10-15 mcg/ml Indication for treatment: Skin and Skin Structure Weight: Actual weight (kg): 84.091 Treatment plan: initiation of therapy Regimen: Vancomycin 1500mg every 12 hrs Rationale: Will adjust dose according to renal function, C S, and levels, if deemed appropriate for drawing. at 1405 [facility] #:[id number] END OF REPORT 2019-12-05 13:42:00-00:00 [id number] [place] [address] PATIENT NAME: RADHA CARPENTER ADMIT DATE: 0 ACCOUNT NO: [id number] ROOM NO: [facility] AGE: 39 REPORT TYPE: OPERATIVE REPORT SEX: M ADMITTING PHYSICIAN:Joe Wolf MD ATTENDING PHYSICIAN:Joe Wolf MD PROCEDURE DATE: 12/05/2019 PREOPERATIVE DIAGNOSIS: Right foot infected ulce r with cellulitis and abscess in a patient with history of diabetes mellitus. POSTOPERATIVE DIAGNOSIS: Right foot infe cted ulcer with cellulitis and abscess in a patient with history of diabetes mellitus. OPERATIONS OR PROCEDURE DONE : The patient underwent a right foot infected ulcer excisional debridement that included the removal of skin, subcutaneous fat, and fascia. SURGEON: Simone Cabrera MD LEGAL SECRETARY RECEPTIONIST: ANESTHESIA: DESCRIPTION OF PROCEDURE: The patient wa s seen in the holding area and brought to the OR where after time-out procedure , he underwent a right ankle block and IV sedation. The right foot and distal leg were prepped and draped in a sterile fashion. I proceeded to prob e the ulcer on the plantar aspect of the right foot with hemostat that is going from the plantar at the level of the first metatarsophalangeal joint distal towards the web space between the great and second toes and using the he mostat as a probe, the skin is cut, and tied with a knife and dissection of subcutaneous tissue cont inued with the same blade. Draining purulent fluid that is coming mostly from the plantar fat and from the tissue and there was space between the great and second toes. I continued the incision along the interosseous space between th e first and second metatarsal bones and then continued the debridement of infe cted tissue using pickup and scissors removing mostly plantar fat, and also t issue along the interosseous space. Once the wound was looking clean, it was irrigated with antibiotic solution and checked for hemostasis. I proceeded to pack the wound with a wet-to-dry dressing using Da kin's solution and then covered with a dressing and the procedure was terminated. The patient tolera ghazala the procedure well. There were no incidents or complications. FINDINGS: The patient had an infected right plan tar ulcer that was going from the first metatarsal phalanx joint plant ar ulcer that is necrotic and then the dissection going distal towards the webs pace between the great and second toes and getting in the interosseous space between th e first and second metatarsal bones. The infected tissue w as mostly plantar fat and the tissue at the plantar aspect of the great and second toes. There was n o evidence of toe ischemia. PATIENT NAME: RADHA CARPENTER [id number] SPECIMEN REMOVED: Skin, subcutaneous fat , and infected tissue including fascia that were sent for histopathology and cultures. ESTIMATED BLOOD LOSS: Minimal. DRAINS: No drains were left. The wound was left open and packed with a wet-to-dry dressing using Dakin's soluti on and the patient keeps an open wound that is a 7 cm long, 2.5 cm wide, and 3 cm deep. Dictated By: Simone Cabrera MD WT: OP:VINCE/KELECHI/ANA LILIA Conf#: [id number]/DID#: [id number] Authenticated by Simone Cabrera MD On 11/16 04:39:44 PM at 1640 PATIENT NAME: RADHA CARPENTER [id number] 2019-12-04 16:24:00-00:00 [id number] [place] [address] PATIENT NAME: RADHA CARPENTER ADMIT DATE: 0 ACCOUNT NO: [id number] ROOM NO: H209 AGE: 39 REPORT TYPE: ELECTROCARDIOGRAM SEX: M : 84 ADMITTING PHYSICIAN:Joe Wolf MD ATTENDING PHYSICIAN:Joe Wolf MD Order: [id number] Test Reason : PREOP Test Date/Time Stamp: ThuDec 04 2019 16:24:07 Blood Pressure : / mmHG Vent. Rate : 104 BPM Atrial Rate : 104 BPM P-R Int : 124 ms QRS Dur : 084 ms QT Int : 346 ms P-R-T Axes : 072 078 063 degree s QTc Int : 454 ms Sinus tachycardia Otherwise normal ECG When compared with ECG of 13-OCT-2019 05:36, T wave amplitude has decreased in Lateral leads Confirmed by MD PIMENTEL ERIC ([id number]) on 02/02/20 11:41:36 AM Referred By: Joe Rivera Confirmed by:ELENI PIMENTEL MD at 1141 PATIENT NAME: RADHA CARPENTER [id number] 2019-12-04 13:30:00-00:00 [id number] [place] [id number] PATIENT NAME: RADHA CARPENTER ADMIT DATE: 0 ACCOUNT NO: [id number] ROOM NO: H425 AGE: 39 REPORT TYPE: CONSULTATION REPORT SEX: M ADMITTING PHYSICIAN:Joe Wolf MD ATTENDING PHYSICIAN:Joe Wolf MD CONSULTATION DATE: 12/04/2019 CONSULTING PHYSICIAN: Simone oscar MD REASON FOR THE CONSULT: Right foot cellulitis. HISTORY OF PRESENT ILLNESS: This is a 39-year-old male with history of diabetes mellitus since he w as 14 years old that had a right foot injury about a week ago and started to develop swelling and redness, and then started to have some discharge. Then, he started to have also pr oblems folding his foot. So comes to ER for evaluation and is admitted for m edical management. He has a workup done and was diagnosed with right foot ce llulitis and abscess with possible osteomyelitis, so a surgical evaluation is requested. PAST MEDICAL HISTORY: Positive for diabetes mindy itus and gastroparesis with secondary chronic abdomen pain. PAST SURGICAL HISTORY: Positive for cholecystect ermias and the nerve stimulator. ALLERGIES: HE IS ALLERGIC TO CLONIDINE AND METOC LOPRAMIDE. SOCIAL HISTORY: Denies any tobacco or alcohol us e, as well as any other recreational drugs. REVIEW OF SYSTEMS: CONSTITUTIONAL: He denies any fever or chills, w eakness, or malaise. MUSCULOSKELETAL: Right foot swelling and redness with some mucinous fluid discharge after an injury that he had at home ab out a week ago. GASTROINTESTINAL: Chronic abdominal pain apparen tly related to gastroparesis. For the moment, there is no nausea, no v omiting, no diarrhea, no constipation, no hematemesis, and no melena. CARDIOVASCULAR: No chest pain. No palpitations. Denies claudication. GENITOURINARY: There is no dysuria, no hematuria , and no history of kidney stones. PULMONARY: No cough. No shortness of breath. All other systems are negative. PHYSICAL EXAMINATION: VITAL SIGNS: He has a blood pressure of 127/82, heart rate is 103 per minute, respirations 12 per minute, and temperature 98.2 . GENERAL: He is awake, alert, and not in acute di stress. HEENT: Pupils are equal and reactive to light. T hroat is moist. NECK: Supple with no adenomegalies. PATIENT NAME: RADHA CARPENTER [id number] THORAX: Heart with regular sinus rhythm. No murm urs. LUNGS: Clear to auscultation bilaterally. ABDOMEN: Soft with normal bowel sounds. Nontende r at the moment. No distention. I do not feel any masses. EXTREMITIES: Right foot with forefoot edema and erythema with an evident skin break on the webspace betwee n the third and fourth toes with slough tissue and a plantar ulcer at the level w ith necrotic skin and surrounding edema and erythema with no fluid discharge. There is no ten derness on palpation. I am not able to feel right dorsalis pedis or posterior tibial pu lses. Left lower extremities with no gross abnormalities. NEUROLOGIC: He is oriented x3 with no gross defi cits. LABORATORY DATA: He has a CBC with WBCs of 10.5, hemoglobin is 12.4, and platelets are 463. On the chemistry, he has sodi um of 134, potassium of 3.5, CO2 is 29, BUN is 8 with a creatinine of 0.8, and blood sugar is 220. He had a right foot x-ray showing no acute osseous abnorm alities and lower extremities arterial Doppler also showin g no evidence of stenosis involving bilateral lower extremities. A bone scan arden wed possible osteomyelitis involving third, fourth, and fifth digits as well as some increased radio tracer activity in the left ankle where there is no evident problem at this moment. IMPRESSION: Right foot cellulitis and ab scess with possible third, fourth, and fifth toes osteomyelitis in a patient with histo ry of diabetes mellitus. PLAN: Discussed with the patient. He is oriented about his condition. Considering the clinical fin dings, I think the patient would benefit of surgical debridement of his right foot infected ulcer. De tails on the procedure were discussed with him and he vo iced understanding, and he agreed with the plan, so he will be scheduled. I will request a [facility] us test. Thanks for the consult. Dictated By: Simone Cabrera MD WT: CON:HSARAH/KELECHI/ANA LILIA Conf#: [id number]/DID#: [id number] Authenticated by Simone Cabrera MD On 11/16 04:39:41 PM at 1640 PATIENT NAME: RADHA CARPENTER 5580 2019-12-04 09:39:00-00:00 [facility] Hospitalist Progress Note REPORT#:[id number] REPORT STATUS: Signed DATE:12/04/19 TIME: 938 PATIENT: RADHA CARPENTER UNIT #: [id number] ROOM/BED: [address] : 82 AGE: 39 SEX: M ATTEND: Joe Wolf MD ADM AUTHOR: Joe Wolf MD * ALL edits or amendments must be made on the [employer]/computer document * Subjective Chief Complaint: Assuming care today. Patient admitted by mistake to Dr. William. PCP is Dr. Chris Patient admitted due to infected left foot. The patient has been battling with foot infection for a couple days. Patient o n IV antibiotic therapy. Patient also suffering from gastroparesis. The p atient screwy no complaint of any nausea vomiting but unable to advance t because of abdominal pain. In the past this patient has been fully wo rked out for gastroparesis including several gastric emptying study that pretty ve been normal. The patient has an implanted gastric stimulator that apparently is no longer working. The patient has been sent multiple time s to [place] to a specialist but has never follow-up. Last time th e patient was under my care in a.m. where he fired me because I did not want to perpetuate Dilaudid IV and he refused Dilaudid p.o. He seem s not to have any problems with me on this admission. Patient cannot have an MRI because of implantabl e device in his abdomen. There is highly suspected osteomyelitis to his r ight foot. Patient denies any signs of COVID infection. Review of Systems All systems rev neg: except as marked Objective Physical Exam Head/Eyes: atraumatic, clear cornea, EOMI, PERRL ENT: normal dentition, normal pharynx Neck: full range of motion, non-tender, no JVD Cardiovascular: normal capillary refill, normal heart sounds, regular rate rhythm Respiratory: aerating well, clear to auscultatio n, symmetric expansion Abdomen: tenderness (epigastric), soft, no diste ntion Extremities: moves all, no cyanosis, no edema Skin: Plantar abscess at the base of the right m etatarsal tender w underlying pus Lymphatics: axilla normal, no lymphadenopathy Psychiatry: normal affect, no hallucinations Diagnosis, Assessment Plan Hospital course to date: Right Diabetic Foot/ abscess, concern for underl aggie osteomyelitis long standing hx of Uncontrolled DM1, multiple c omplications Gastroparesis. Anxiety plan Admission to medical floor empiric antibiotics MRI, r/o osteomyelitis consult Podiatry continue with home medications Regular Insulin sliding scale. Continue with agg ressive management of his diabetes and hyperglycemia as this seems to be t he most significant factor controlling his gastroparesis. Discontinue morphine and switch to Dilau did as morphine as per in the past not to be effective. Start the patient on Reglan continue with Zofran PRN Consult general surgeon for incision and drainag e of right foot abscess. We will obtain a bone scan to ruling rule out os teomyelitis symptomatic tx for pain at 1424 RPT #:[id number] END OF REPORT 2019-12-03 14:50:00-00:00 [facility] Hospitalist Progress Note REPORT#:[id number] REPORT STATUS: Signed DATE:12/03/19 TIME: 1450 PATIENT: RADHA CARPENTER UNIT #: [id number] [facility] AGE: 39 SEX: M ATTEND: Joe Wolf MD ADM AUTHOR: Joe Wolf MD * ALL edits or amendments must be made on the [facility]/computer document * Subjective Chief Complaint: DOS 12/02/19 Assuming care today. Patient admitted by mistake to Dr. William. PCP is Dr. Chris Patient admitted due to infected left foot. The patient has been battling with foot infection for a couple days. Patient o n IV antibiotic therapy. Patient also suffering from gastroparesis. The p atient screwy no complaint of any nausea vomiting but unable to advance t because of abdominal pain. In the past this patient has been fully wo rked out for gastroparesis including several gastric emptying study that pretty ve been normal. The patient has an implanted gastric stimulator that apparently is no longer working. The patient has been sent multiple time s to [place] to a specialist but has never follow-up. Last time th e patient was under my care in a.m. where he fired me because I did not want to perpetuate Dilaudid IV and he refused Dilaudid p.o. He seem s not to have any problems with me on this admission. Patient cannot have an MRI because of implantabl e device in his abdomen. There is highly suspected osteomyelitis to his r ight foot. Patient denies any signs of COVID infection. Review of Systems All systems rev neg: except as marked Objective General VS/I O: Vital signs are stable, afebrile Physical Exam Head/Eyes: atraumatic, clear cornea, EOMI, PERRL ENT: normal dentition, normal pharynx Neck: full range of motion, non-tender, no JVD Cardiovascular: normal capillary refill, normal heart sounds, regular rate rhythm Respiratory: aerating well, clear to auscultatio n, symmetric expansion Abdomen: tenderness (epigastric), soft, no diste ntion Extremities: moves all, no cyanosis, no edema Skin: Plantar abscess at the base of the right m etatarsal tender w underlying pus Lymphatics: axilla normal, no lymphadenopathy Psychiatry: normal affect, no hallucinations Diagnosis, Assessment Plan Hospital course to date: Right Diabetic Foot/ abscess, concern for underl aggie osteomyelitis long standing hx of Uncontrolled DM1, multiple c omplications Gastroparesis. Anxiety plan Admission to medical floor empiric antibiotics MRI, r/o osteomyelitis consult Podiatry continue with home medications Regular Insulin sliding scale. Continue with agg ressive management of his diabetes and hyperglycemia as this seems to be t he most significant factor controlling his gastroparesis. Discontinue morphine and switch to Dilau did as morphine as per in the past not to be effective. Start the patient on Reglan continue with Zofran PRN Consult general surgeon for incision and drainag e of right foot abscess. We will obtain a bone scan to ruling rule out os teomyelitis symptomatic tx for pain at 1451 RPT #:[id number] END OF REPORT 2019-12-03 10:03:00-00:00 [facility] Hospitalist Progress Note REPORT#:[id number] REPORT STATUS: Signed DATE:12/03/19 TIME: 1003 PATIENT: RADHA CARPENTER UNIT #: [id number] ROOM/BED: 425-A : 82 AGE: 39 SEX: M ATTEND: Joe Wolf MD ADM AUTHOR: Joe Wolf MD * ALL edits or amendments must be made on the [employer]/computer document * Subjective Chief Complaint: Patient admitted due to infected left fo ot. The patient has been battling with foot infection for a couple days. Patient on IV antibiotic therapy. Patient also suffering from gastroparesis. The patient s crewy no complaint of any nausea vomiting but unable to advance diet becau se of abdominal pain. In the past this patient has been f ully worked out for gastroparesis including several gastric emptying study that have been normal. Th e patient has an implanted gastric stimulator that apparently is no longer working. The patient has been sent multiple times to [place] to a [facility] but has never follow-up. Last time the patient was un callie my care in a.m. where he fired me because I did not want to perpetuate Dilau did IV and he refused Dilaudid p.o. He seems not to have any problems with me on this admission. Patient cannot have an MRI because of im plantable device in his abdomen. There is highly suspected osteomyelitis to his right f oot. Patient denies any signs of COVID infection. Review of Systems All systems rev neg: except as marked Objective General VS/I O: Vital Signs: Date Time Temp Pulse Resp B/P B/P Pulse O2 O2 F low FiO2 Mean Ox Delivery Rate 12/02 1116 109 156/89 111.4 12/02 0608 36.6 106 18 130/88 105 96 Room air 12/01 2143 36.9 104 18 150/84 106.3 92 Room air 12/01 1816 36.8 106 18 130/82 98.1 96 Room air 24 hour I O ending at 0700: 12/02 0700 12/01 1900 Intake Total 945.00 400.00 Output Total 900 Balance 45.00 400.00 Intake, IV 425.00 400.00 Intake, Oral 520 Number 0 Bowel Movements Number Voids 2 Output, Urine 900 Patient Weight Weight (lb): Weight (oz): Weight (kg): 84.091 Medications: Active Meds + DC'd Last 24 Hrs Hydromorphone HCl 0.5 MG Q4H PRN PRN IV Vancomycin HCl 1,500 MG Q12H IV (DC) Sodium Chloride 300 ML Piperacillin Sod/Tazobactam Sod 3.375 GM Q8HR IV (DC) Sodium Chloride 100 ML Q8HR IV (DC) Hydrochlorothiazide 12.5 MG DAILY PO Lisinopril 10 MG DAILY PO Undefined Medication 20 UNIT DAILY SUBQ Device 1 SYRINGE Famotidine 20 MG BEDTIME PO Nortriptyline HCl 50 MG BEDTIME PO Simvastatin 10 MG BEDTIME PO Zolpidem Tartrate 10 MG BEDTIME PO Insulin Human Regular SLIDING SCALE AC HS SUBQ Sucralfate 1 GM AC HS PO Dextrose/Water 25 ML ASDIR PRN IV Enoxaparin Sodium 40 MG DAILY 0800 SUBQ Glucagon 1 MG ASDIR PRN IM Acetaminophen 650 MG Q6H PRN PRN PO Guaifenesin 10 ML Q6H PRN PRN PO (CKD) Hydralazine HCl 10 MG Q6H PRN PRN IV Hydrocodone Bitart/Acetaminophen 1 TAB Q6H PRN P RN PO Lactulose 30 ML BID PRN PRN PO (CKD) Morphine Sulfate 4 MG Q4H PRN PRN IV Ondansetron HCl 4 MG Q6H PRN PRN IV Physical Exam Head/Eyes: atraumatic, clear cornea, EOMI, PERRL ENT: normal dentition, normal pharynx Neck: full range of motion, non-tender, no JVD Cardiovascular: normal capillary refill, normal heart sounds, regular rate rhythm Respiratory: aerating well, clear to auscultatio n, symmetric expansion Abdomen: tenderness (epigastric), soft, no diste ntion Extremities: moves all, no cyanosis, no edema Skin: Plantar abscess at the base of the right m etatarsal tender w underlying pus Lymphatics: axilla normal, no lymphadenopathy Psychiatry: normal affect, no hallucinations Results Findings/Data: Laboratory Tests 12/02 12/02 12/01 12/01 1124 0708 2119 1655 Chemistry POC Glucose (70 - 105 mg/dL) 149 H 191 H 156 H 143 H Diagnosis, Assessment Plan Hospital course to date: Right Diabetic Foot/ abscess, concern for underl aggie osteomyelitis long standing hx of Uncontrolled DM1, multiple c omplications Gastroparesis. Anxiety plan Admission to medical floor empiric antibiotics MRI, r/o osteomyelitis consult Podiatry continue with home medications Regular Insulin sliding scale. Continue with agg ressive management of his diabetes and hyperglycemia as this seems to be t he most significant factor controlling his gastroparesis. Discontinue morphine and switch to Dilau did as morphine as per in the past not to be effective. Start the patient on Reglan continue with Zofran PRN Consult general surgeon for incision and drainag e of right foot abscess. We will obtain a bone scan to ruling rule out os teomyelitis symptomatic tx for pain at 1450 RPT #:[id number] END OF REPORT 2019-12-02 09:21:00-00:00 [id number] [facility] [address] [address] PATIENT NAME: RADHA CARPENTER ADMIT DATE: 0 ACCOUNT NO: [id number] ROOM NO: [facility] AGE: 39 REPORT TYPE: eARTERIAL ULTRASOUND SEX: M : 84 ADMITTING PHYSICIAN:Joe Wolf MD ATTENDING PHYSICIAN:Joe Wolf MD *[facility]* [address] [place] [address] Lower Extremity Arterial Duplex Evaluation Patient: Radha Carpenter Study Date: 12/01/2019 BP: [facility] URN: [id number] : 1980 Age: 39 Height: 0 in / 0 cm Gender: M Weight: 0 l b / 0 kg BMI/BSA: / *Ordering Physician: * Wilmer William *Interpreting Physician: * Dominga Hardy MD *Analytical Scientist: * Simone Vieyra Indications: Non-healing ulcers. Study data: Lower extremity arterial duplex eval uation. Bilateral evaluation with grayscale 2D imaging, color Dopp ler imaging, and spectral Doppler analysis. Location: Bedside. Neri kingsley status: Inpatient. Patient room number: 425. Study statu s: Routine. Findings Lower extremity arteries: Lower extremity arterial system: Mild calcified plaquing of the common femoral, femoral, popliteal and tibioperoneal ar teries with normal color flow and doppler signals of the bilateral lower extremities. Arterial flow: Location PSV* Location PSV* R DIRECTOR MONEY, prox 107 L DIRECTOR MONEY, prox 115 R FA, prox 130 L FA, prox 125 R FA, mid 140 L FA, mid 107 R FA, distal 120 L FA, distal 91 R popliteal, prox 74 L popliteal, prox 87 PATIENT NAME: RADHA CARPENTER 5580 R popliteal, distal 98 L popliteal, distal 92 R RAUL 89 L RAUL 74 R DPA 128 L DPA 115 R BELL RINGER 89 L BELL RINGER 94 *Velocities are expressed in cm/sec, Diameters are expressed in cm Conclusions There is no evidence of stenosis involving the b ilateral lower extremities. Prepared and electronically signed by Dominga Hardy MD 12/02/2019 09:21 at 0921 PATIENT NAME: RADHA CARPENTER [id number] 2019-12-01 15:07:00-00:00 [facility] History Physical - Adult REPORT#:[id number] REPORT STATUS: Signed DATE:12/01/19 TIME: 1507 PATIENT: RADHA CARPENTER UNIT #: [id number] ROOM/BED: [address] : 82 AGE: 39 SEX: M ATTEND: Joe Wolf MD ADM AUTHOR: Wilmer Willima MD * ALL edits or amendments must be made on the [employer]/computer document * History of Present Illness HPI PCP: PCP: Galindo Chris MD HPI: The patient is a 39-year-old male patient with a long-standing history of type 1 diabetes with mult iple complications, no history of gastroparesis that had presented to the emergency departmen t complaining . Swelling and erythema, apparently the patient had scabs that he has pic ked on initial presentation the patient has been found with severe cellulitis with an ulcer concerning for underlying osteomyelitis History Past medical history: Reports: Diabetes mellitus. Additional medical history: Past medical history: Reports: Diabetes mellitus. Additional medical history: Reports chronic abdominal pain and gastroparesi s Past surgical history: Reports: Cholecystectomy. Additional surgical history: Past surgical history: Reports: Cholecystectomy. Additional surgical history: Reports having a nerve stimulator Additional family history: Noncontributory Alcohol use: Denies EtOH use Drug use: Denies recreational drugs Smoking status for patients 13 years old or olde r: Never Smoker Other social history: Disabled, Good social supp ort Medication/Allergy-Vaccine Hx Home Medications: FAMOTIDINE (PEPCID) 20 MG PO BEDTIME INSULIN ASPART (NovoLOG) INSULIN GLARGINE (LANTUS) LISINOPRIL/HCTZ (ZESTORETIC 10/12.5 MG) 1 TAB PO DAILY NORTRIPTYLINE (PAMELOR) 50 MG PO BEDTIME SIMVASTATIN (ZOCOR) 10 MG PO BEDTIME SUCRALFATE (CARAFATE 1 GM/10 ML) 1 GM PO AC HS ZOLPIDEM (AMBIEN) 10 MG PO BEDTIME Allergies: Coded Allergies: clonidine (ANXIETY 05/20/19) metoclopramide (From REGLAN) (JERKS AND SPASMS 0 12/01/19) Review of Systems All systems rev neg: except as marked Physical Exam VS/I O Patient Weight Weight (lb): 185 Weight (oz): 6.22 Weight (kg): 84.091 Free Text PE Notes Free Text PE Notes: General appearance: chronically ill appearing, a lert, awake, oriented Head/Eyes: atraumatic, normal conjunctiva/sclera , normocephalic, PERRLA ENT: moist mucosal membranes Neck: full range of motion, non-tender, supple Cardiovascular: normal capillary refill, normal heart sounds, regular rate rhythm, no murmur, no rub Respiratory: aerating well, clear to auscultatio n, symmetric expansion, no distress Abdomen: abnormal bowel sounds, tenderness, soft , no distention Extremities: moves all, no clubbing, no cyanosis , no edema Musculoskeletal: normal inspection Neuro/AIRLINE COUNTER AGENT: alert, oriented X 3 Skin: dry, intact, no rash Psychiatry: normal affect, normal judgment/insig ht Diagnosis, Assessment Plan Free Text DxA P Notes Free Text DxA P Notes: * Right Diabetic Foot/ abscess, concern for unde rlying osteomyelitis * long standing hx of Uncontrolled DM1, multiple complications * Gastroparesis. * Anxiety plan * Admission to medical floor * empiric antibiotics * MRI, r/o osteomyelitis * consult Podiatry * continue with home medications * Regular Insulin sliding scale * symptomatic tx for pain * at 0845 RPT #:[id number] END OF REPORT 2019-12-01 05:05:00-00:00 [facility] EMERGENCY PROVIDER REPORT REPORT#:[id number] REPORT STATUS: Signed DATE:12/01/19 TIME: 050 PATIENT: RADHA CARPENTER UNIT #: [id number] ROOM/BED: K[place] AGE: 39 SEX: M PCP PHYS: Galindo Chris MD SERVICE AUTHOR: Ld Rutherford MD * ALL edits or amendments must be made on the [facility]/computer document * Ld Rutherford MD 12/01/19 0505: HPI-Abd Pain M Under 40 Presentation Chief Complaint Abdominal pain Hx Obtained From Patient Sudden in Onset? No Onset Occurred Yesterday Symptom Duration Constant Progression since Onset Waxes and wanes Free Text HPI Notes Free Text HPI Notes Patient is a 39-year-old male with a pas t medical history of poorly controlled diabetes, gastroparesis, narcotic depend ence who again presents complaining of epigastric pain associated with vomiting similar to previous episodes of gastroparesis Patient also complaining of 2 days of right plan tar foot swelling and pain Review of Systems Basic Review of Systems Basic ROS EYES: No redness, ENT: No sore throat, HEM: No bleeding/bruising, SKIN : No rash, NEURO: No change MS, NEURO: No focal deficit, PSYCH: NL thought content Focused Review of Systems Constitutional Denies: Chills, Fever. Respiratory Denies: Cough, non-productive, Cough, productive , Dyspnea on exertion, Hemoptysis, Parox nocturnal dyspnea, Pleuritic p ain, Shortness of breath, Wheezing. Cardiovascular Denies: Chest pain, Dyspnea on exertion, Edema, Orthopnea, Palpitations, Parox nocturnal dyspnea, Syncope. GI Reports: Abdominal pain, Nausea, Vomitin g. Denies: Anorexia, Belching, Bloody/ tarry stool, Constipation, Diarrhea, Dysphagia, Hematemesis, Hematochezia, Mucousy stool. Male Denies: Hematuria, Testicular pain. Musculoskeletal Denies: Extremity swelling, Myalgia. Past Medical History - Adult Stated Complaint ABDOMINAL PAIN Allergies Coded Allergies: clonidine (ANXIETY 05/20/19) Home Medications Active Scripts SUCRALFATE (CARAFATE 1 GM/10 ML) 1 GM PO AC HS SUCRALFATE (CARAFATE 1 GM/10 ML) 1 GM PO AC HS #250 ML Prov: 10/17/19 Reported Medications NORTRIPTYLINE (PAMELOR) 50 MG PO BEDTIME FAMOTIDINE (PEPCID) 20 MG PO BEDTIME SIMVASTATIN (ZOCOR) 10 MG PO BEDTIME ZOLPIDEM (AMBIEN) 10 MG PO BEDTIME INSULIN GLARGINE (LANTUS) INSULIN ASPART (NovoLOG) Past Medical History: Reports: Diabetes mellitus. Additional Medical History Past medical history: Reports: Diabetes mellitus. Additional medical history: Reports chronic abdominal pain and gastroparesi s Past Surgical History: Reports: Cholecystectomy. Additional Surgical History Past surgical history: Reports: Cholecystectomy. Additional surgical history: Reports having a nerve stimulator Additional Family History Noncontributory Alcohol Use Denies EtOH use Drug Use Denies recreational drugs Smoking status for patients 13 years old or olde r: Never Smoker Other Social History Disabled, Good social suppo rt Physical Exam Vital Signs Vital Signs First Documented: Result Date Time Pulse Ox 97 11/30 0213 B/P 136/69 11/30 0213 B/P Mean 91 11/30 0213 O2 Delivery Room air 11/30 0213 Temp 36.4 11/30 0213 Pulse 121 11/30 0213 Resp 20 11/30 0213 Last Documented: Result Date Time Pulse Ox 98 11/30 0630 B/P 124/74 11/30 0630 B/P Mean 90 11/30 0630 O2 Delivery Room air 11/30 0630 Temp 36.6 11/30 0630 Pulse 104 / 0630 Resp 20 11/30 0630 Review of Vital Signs Reviewed Basic Physical Exam Basic PE HEAD: Atraumatic/NC , ENT: Membranes moist, NECK: Supple, EXT: No gross abnormality, SKIN: No rashes, warm/dry, NEURO: a lert oriented, NEURO: gross movement NL, PSYCH: NL thought content Focused PE General/Const General/Const Awake, Alert Resp/Chest Respiratory/Chest Atraumatic, Breath sounds NL, Breath sounds = bilat Cardiovascular Cardiovascular Regular rhythm, Heart sounds NL Heart Rate/Rhythm Tachycardia. Abdomen/GI Abdomen/GI Atraumatic Tenderness/Guarding/Rebound Tender epigastric. MS Back Back Atraumatic, Inspection NL Interpretation Diagnostics Lab Results Interpretation Results Laboratory Tests 12/01/19 0240: [Embedded Image Not Available] Laboratory Tests: 12/01 239 Chemistry Sodium (136 - 145 mmol/L) 139 Potassium (3.5 - 5.1 mmol/L) 3.5 Chloride (98 - 107 mmol/L) 99 Carbon Dioxide (21 - 32 mmol/L) 27 BUN (7 - 18 mg/dL) 26 H Creatinine (0.70 - 1.30 mg/dl) 1.18 Estimated GFR (MDRD) (>=60) > 60.00 Glucose (70 - 100 mg/dL) 106 H Calcium (8.5 - 10.1 mg/dL) 10.2 H Total Bilirubin (0.2 - 1.0 mg/dL) 0.3 Direct Bilirubin (0.0 - 0.2 mg/dl) 0.09 AST (15 - 37 U/L) 22 ALT (12 - 78 U/L) 32 Alkaline Phosphatase (45 - 117 U/L) 87 C-React Prot High Sens (0.0 - 3.0) 88.80 H Total Protein (6.4 - 8.2 g/dl) 9.5 H Albumin (3.4 - 5.0 g/dl) 4.0 Lipase (73 - 393 U/L) 74 Procalcitonin (<0.5 ng/mL) 0.16 Hematology WBC (4.5 - 11.0 X10(3)) 11.7 H RBC (4.3 - 5.9 X10(6)) 4.65 Hgb (13.5 - 18.0 g/dL) 14.1 Hct (42.0 - 52.0 %) 42.2 MCV (78 - 100 fL) 90.8 MCH (26.0 - 34.0 pg) 30.3 MCHC (30.0 - 37.0 g/dl) 33.4 RDW (11.5 - 14.5 %) 11.3 L Plt Count (150 - 350 X10(3)) 401 H MPV (8.7 - 11.4 fl) 9.3 Neut % (Auto) (36.0 - 66.0 %) 74.0 H Lymph % (Auto) (16 - 50 %) 13.7 L Dixie % (Auto) (0.0 - 13.0 %) 11.0 Eos % (Auto) (0.0 - 4.5 %) 0.3 Baso % (Auto) (0.0 - 1.5 %) 0.2 Immature Gran # (Auto) (0.00 - 0.03 X10(3)uL) 0 .09 H Absolute Neuts (auto) (1.7 - 7.7 X10(3)) 8.7 H Absolute Lymphs (auto) (1.0 - 4.8 X10(3)) 1.6 Absolute Monos (auto) (0.0 - 0.89 X10(3)) 1.3 H Absolute Eos (auto) (0.0 - 0.6 X10(3)) 0.0 Absolute Basos (auto) (0.0 - 0.2 X10(3)) 0.0 Immature Gran % (0.0 - 2.0 %) 0.8 RBC Morphology (NORMAL) NO ESR Westergren (0 - 15 mm/hr) 26 H Recent Impressions: RADIOLOGY - XR FOOT 3+ V RT 11/30 0247 Report Impression - Status: SIGNED Entered: 12/01/2019313 IMPRESSION: No acute osseous abnormality. Impression By: [email or web address] CAMILLA MEDRANO M.D. Re-Evaluation MDM Free Text MDM Notes Free Text MDM Notes Patient presents with significant pain and vomit ing associated with gastroparesis along with diabetic foot infection ESR and CRP significantly elevated. I believe patient's tachycardia associated with pain, dehydration. Do not suspect the patient is septic. Will hold antibio tics for now in case of necessity for bone biopsy We will admit patient to hospitalist ED Course Medication(s) Ordered Medication(s) Ordered: Antihistamine Drugs Sig/Sima Start time Last Medication Dose Route Stop Time Status Admin Diphenhydramine HCl 50 MG X1ED STA 11/30 0227 D C 11/30 IV 11/30 0228 0252 Central Nervous System Agents Sig/Sima Start time Last Medication Dose Route Stop Time Status Admin Morphine Sulfate 5 MG X1ED STA 11/30 0454 DC IV 11/30 0455 0505 Hydromorphone HCl 0.5 MG X1ED STA 11/30 0346 DC IV 11/30 0347 Electrolytic, Caloric, And Yumiko Sig/Sima Start time Last Medication Dose Route Stop Time Status Admin Sodium Chloride 1,000 ML X1ED STA 11/30 0712 AC 11/30 IV 11/30 1511 1058 Sodium Chloride 1,000 ML X1ED STA 11/30 0415 DC / IV / 0514 0506 Sodium Chloride 1,000 ML X1ED STA 11/30 0217 DC / IV / 0316 0252 Gastrointestinal Drugs Sig/Sima Start time Last Medication Dose Route Stop Time Status Admin Metoclopramide HCl 5 MG X1ED STA 11/30 0227 DC 11/30 IV 11/30 0228 0252 Patient Discharge Departure Vital Signs/Condition Vital Signs First Documented: Result Date Time Pulse Ox 97 11/30 0213 B/P 136/69 / 0213 B/P Mean 91 11/30 0213 O2 Delivery Room air 11/30 0213 Temp 36.4 11/30 0213 Pulse 121 11/30 0213 Resp 20 11/30 0213 Last Documented: Result Date Time Pulse Ox 98 11/30 0630 B/P 124/74 / 0630 B/P Mean 90 11/30 0630 O2 Delivery Room air 11/30 0630 Temp 36.6 11/30 0630 Pulse 104 11/30 0630 Resp 20 11/30 0630 All vital signs available at the time of this en try have been reviewed. Disposition Decision Admit Admit Physician Name Wilmer William MD Admit Physician Hospitalist Request Time 0704 Request Date 12/01/19 )( Admission Accepts Yes )( Accepted Time 0704 )( Accepted Date 12/01/19 Discharge/Care Plan Referrals Galindo Chris MD (PCP/Family) Anderson Slaughter 12/01/19 1237: HPI-Abd Pain M Under 40 General Initial Greet Date/Time 12/01/19 0215 Re-Evaluation MDM )( Re-Evaluation/Progress #1 Time of Re-Eval 1237 )( Re-Eval Status Unchanged Patient Discharge Departure Clinical Impression Clinical Impression Primary Impression: Abdominal pain Secondary Impressions: Diabetic foot infection Discharge/Care Plan Counseled Regarding Diagnosis, Medication change s, Prescriptions, Need for admission Electronically Signed by Anderson Slaughter MD on at 1237 RPT #:[id number] END OF REPORT 2019-12-01 05:05:00-00:00 [facility] EMERGENCY PROVIDER REPORT REPORT#:[id number] REPORT STATUS: Signed DATE:12/01/19 TIME: 504 PATIENT: RADHA CARPENTER UNIT #: [id number] ROOM/BED: 425-A AGE: 39 SEX: M PCP PHYS: Galindo Chris MD SERVICE AUTHOR: Ld Rutherford MD * ALL edits or amendments must be made on the [facility]/computer document * Ld Rutherford MD 12/01/19 0505: HPI-Abd Pain M Under 40 General Initial Greet Date/Time 12/01/19 021 Presentation Chief Complaint Abdominal pain Hx Obtained From Patient Sudden in Onset? No Onset Occurred Yesterday Symptom Duration Constant Progression since Onset Waxes and wanes Free Text HPI Notes Free Text HPI Notes Patient is a 39-year-old male with a pas t medical history of poorly controlled diabetes, gastroparesis, narcotic depend ence who again presents complaining of epigastric pain associated with vomiting similar to previous episodes of gastroparesis Patient also complaining of 2 days of right plan tar foot swelling and pain Review of Systems Basic Review of Systems Basic ROS EYES: No redness, ENT: No sore throat, HEM: No bleeding/bruising, SKIN : No rash, NEURO: No change MS, NEURO: No focal deficit, PSYCH: NL thought content Focused Review of Systems Constitutional Denies: Chills, Fever. Respiratory Denies: Cough, non-productive, Cough, productive , Dyspnea on exertion, Hemoptysis, Parox nocturnal dyspnea, Pleuritic p ain, Shortness of breath, Wheezing. Cardiovascular Denies: Chest pain, Dyspnea on exertion, Edema, Orthopnea, Palpitations, Parox nocturnal dyspnea, Syncope. GI Reports: Abdominal pain, Nausea, Vomitin g. Denies: Anorexia, Belching, Bloody/ tarry stool, Constipation, Diarrhea, Dysphagia, Hematemesis, Hematochezia, Mucousy stool. Male Denies: Hematuria, Testicular pain. Musculoskeletal Denies: Extremity swelling, Myalgia. Past Medical History - Adult Stated Complaint ABDOMINAL PAIN Allergies Coded Allergies: clonidine (ANXIETY 05/20/19) metoclopramide (From REGLAN) (JERKS AND SPASMS 0 12/01/19) Home Medications Active Scripts SUCRALFATE (CARAFATE 1 GM/10 ML) 1 GM PO AC HS SUCRALFATE (CARAFATE 1 GM/10 ML) 1 GM PO AC HS #250 ML Prov: 10/17/19 Reported Medications LISINOPRIL/HCTZ (ZESTORETIC 10/12.5 MG) 1 TAB PO DAILY NORTRIPTYLINE (PAMELOR) 50 MG PO BEDTIME FAMOTIDINE (PEPCID) 20 MG PO BEDTIME SIMVASTATIN (ZOCOR) 10 MG PO BEDTIME ZOLPIDEM (AMBIEN) 10 MG PO BEDTIME INSULIN GLARGINE (LANTUS) INSULIN ASPART (NovoLOG) Past Medical History: Reports: Diabetes mellitus. Additional Medical History Past medical history: Reports: Diabetes mellitus. Additional medical history: Reports chronic abdominal pain and gastroparesi s Past Surgical History: Reports: Cholecystectomy. Additional Surgical History Past surgical history: Reports: Cholecystectomy. Additional surgical history: Reports having a nerve stimulator Additional Family History Noncontributory Alcohol Use Denies EtOH use Drug Use Denies recreational drugs Smoking status for patients 13 years old or olde r: Never Smoker Other Social History Disabled, Good social suppo rt Physical Exam Vital Signs Vital Signs First Documented: Result Date Time Pulse Ox 97 11/30 0213 B/P 136/69 11/30 0213 B/P Mean 91 11/30 0213 O2 Delivery Room air 11/30 0213 Temp 36.4 11/30 0213 Pulse 121 11/30 0213 Resp 20 11/30 0213 Last Documented: Result Date Time Pulse Ox 98 11/30 0630 B/P 124/74 11/30 0630 B/P Mean 90 11/30 0630 O2 Delivery Room air 11/30 0630 Temp 36.6 11/30 0630 Pulse 104 11/30 0630 Resp 20 11/30 0630 Review of Vital Signs Reviewed Basic Physical Exam Basic PE HEAD: Atraumatic/NC , ENT: Membranes moist, NECK: Supple, EXT: No gross abnormality, SKIN: No rashes, warm/dry, NEURO: a lert oriented, NEURO: gross movement NL, PSYCH: NL thought content Focused PE General/Const General/Const Awake, Alert Resp/Chest Respiratory/Chest Atraumatic, Breath sounds NL, Breath sounds = bilat Cardiovascular Cardiovascular Regular rhythm, Heart sounds NL Heart Rate/Rhythm Tachycardia. Abdomen/GI Abdomen/GI Atraumatic Tenderness/Guarding/Rebound Tender epigastric. MS Back Back Atraumatic, Inspection NL Re-Evaluation MDM Free Text MDM Notes Free Text MDM Notes Patient presents with significant pain and vomit ing associated with gastroparesis along with diabetic foot infection ESR and CRP significantly elevated. I believe patient's tachycardia associated with pain, dehydration. Do not suspect the patient is septic. Will hold antibio tics for now in case of necessity for bone biopsy We will admit patient to hospitalist ED Course Medication(s) Ordered Medication(s) Ordered: Antihistamine Drugs Sig/Sima Start time Last Medication Dose Route Stop Time Status Admin Diphenhydramine HCl 50 MG X1ED STA 11/30 0227 DC 07/ IV 11/30 0228 0252 Central Nervous System Agents Sig/Sima Start time Last Medication Dose Route Stop Time Status Admin Morphine Sulfate 5 MG X1ED STA 11/30 0454 DC 0 16 IV 11/30 0455 0505 Hydromorphone HCl 0.5 MG X1ED STA 11/30 0346 DC IV 11/30 0347 Electrolytic, Caloric, And Yumiko Sig/Sima Start time Last Medication Dose Route Stop Time Status Admin Sodium Chloride 1,000 ML X1ED STA 11/30 0712 AC 07/16 IV 07/ 1511 1058 Sodium Chloride 1,000 ML X1ED STA 11/30 0415 DC 07/16 IV 07/ 0514 0506 Sodium Chloride 1,000 ML X1ED STA / 0217 DC 07/16 IV 07/16 0316 0252 Gastrointestinal Drugs Sig/Sima Start time Last Medication Dose Route Stop Time Status Admin Metoclopramide HCl 5 MG X1ED STA 11/30 0227 DC 07/16 IV / 0228 0252 Patient Discharge Departure Vital Signs/Condition Vital Signs First Documented: Result Date Time Pulse Ox 97 11/30 0213 B/P 136/69 11/30 0213 B/P Mean 91 11/30 212 O2 Delivery Room air 11/30 021 Temp 36.4 11/30 021 Pulse 121 11/30 0213 Resp 20 11/303 Last Documented: Result Date Time Pulse Ox 98 11/30 0630 B/P 124/74 11/30 0630 B/P Mean 90 11/30 0630 O2 Delivery Room air 11/30 0630 Temp 36.6 11/30 0630 Pulse 104 11/30 0630 Resp 20 11/30 0530 All vital signs available at the time of this en try have been reviewed. Clinical Impression Clinical Impression Primary Impression: Diabetic foot infection Secondary Impressions: Abdominal pain, Gastropar esis Disposition Decision Admit Admit Physician Name Wilmer William MD Admit Physician Hospitalist Request Time 07 Request Date 12/01/19 )( Admission Accepts Yes )( Accepted Time 703 )( Accepted Date 12/01/19 Discharge/Care Plan Referrals Galindo Chris MD (PCP/Family) Rambo Slaughterd 12/01/19 1237: Interpretation Diagnostics Lab Results Interpretation Results Laboratory Tests 12/01/19 0240: [Embedded Image Not Available] Laboratory Tests: 12/01 239 Chemistry Sodium (136 - 145 mmol/L) 139 Potassium (3.5 - 5.1 mmol/L) 3.5 Chloride (98 - 107 mmol/L) 99 Carbon Dioxide (21 - 32 mmol/L) 27 BUN (7 - 18 mg/dL) 26 H Creatinine (0.70 - 1.30 mg/dl) 1.18 Estimated GFR (MDRD) (>=60) > 60.00 Glucose (70 - 100 mg/dL) 106 H Calcium (8.5 - 10.1 mg/dL) 10.2 H Total Bilirubin (0.2 - 1.0 mg/dL) 0.3 Direct Bilirubin (0.0 - 0.2 mg/dl) 0.09 AST (15 - 37 U/L) 22 ALT (12 - 78 U/L) 32 Alkaline Phosphatase (45 - 117 U/L) 87 C-React Prot High Sens (0.0 - 3.0) 88.80 H Total Protein (6.4 - 8.2 g/dl) 9.5 H Albumin (3.4 - 5.0 g/dl) 4.0 Lipase (73 - 393 U/L) 74 Procalcitonin (<0.5 ng/mL) 0.16 Hematology WBC (4.5 - 11.0 X10(3)) 11.7 H RBC (4.3 - 5.9 X10(6)) 4.65 Hgb (13.5 - 18.0 g/dL) 14.1 Hct (42.0 - 52.0 %) 42.2 MCV (78 - 100 fL) 90.8 MCH (26.0 - 34.0 pg) 30.3 MCHC (30.0 - 37.0 g/dl) 33.4 RDW (11.5 - 14.5 %) 11.3 L Plt Count (150 - 350 X10(3)) 401 H MPV (8.7 - 11.4 fl) 9.3 Neut % (Auto) (36.0 - 66.0 %) 74.0 H Lymph % (Auto) (16 - 50 %) 13.7 L Dixie % (Auto) (0.0 - 13.0 %) 11.0 Eos % (Auto) (0.0 - 4.5 %) 0.3 Baso % (Auto) (0.0 - 1.5 %) 0.2 Immature Gran # (Auto) (0.00 - 0.03 X10(3)uL) 0 .09 H Absolute Neuts (auto) (1.7 - 7.7 X10(3)) 8.7 H Absolute Lymphs (auto) (1.0 - 4.8 X10(3)) 1.6 Absolute Monos (auto) (0.0 - 0.89 X10(3)) 1.3 H Absolute Eos (auto) (0.0 - 0.6 X10(3)) 0.0 Absolute Basos (auto) (0.0 - 0.2 X10(3)) 0.0 Immature Gran % (0.0 - 2.0 %) 0.8 RBC Morphology (NORMAL) NO ESR Westergren (0 - 15 mm/hr) 26 H Recent Impressions: RADIOLOGY - XR FOOT 3+ V RT 11/30 0247 Report Impression - Status: SIGNED Entered: 12/01/20194 IMPRESSION: No acute osseous abnormality. Impression By: [email or web address] ESPINOSA M.D. Re-Evaluation [facility] )( Re-Evaluation/Progress #1 Time of Re-Eval 1237 )( Re-Eval Status Unchanged Patient Discharge Departure Discharge/Care Plan Counseled Regarding Diagnosis, Medication change s, Prescriptions, Need for admission Electronically Signed by Anderson Slaughter MD on at 1237 at 0433 [facility] #:[id number] END OF REPORT 2019-10-22 08:26:00-00:00 [id number] [place] [id number] PATIENT NAME: RADHA CARPENTER ADMIT DATE: 0 ACCOUNT NO: [id number] ROOM NO: [facility] AGE: 39 REPORT TYPE: DISCHARGE SUMMARY SEX: M ADMITTING PHYSICIAN:Wilmer William MD ATTENDING PHYSICIAN:Wilmer William MD ADMISSION DATE: 10/13/2019 DISCHARGE DATE: 10/17/2019 ADMITTING DIAGNOSES: 1. Intractable nausea and vomiting on admission. 2. Abdominal pain. 3. Gastroparesis. 4. Diabetes mellitus. 5. Narcotic dependent. DISCHARGE DIAGNOSES: 1. Intractable nausea and vomiting on admission. 2. Abdominal pain. 3. Gastroparesis. 4. Diabetes mellitus, poorly controlled. 5. Narcotic dependent. HISTORY OF PRESENT ILLNESS: This is a 39-year-ol d male, who presented to the Emergency Department complai kvng of increased abdominal pain, intractable nausea and vomiting with oral intolerance. In the ER, mathew gómez was found dehydrated with multiple isolates abnormalities. PAST MEDICAL HISTORY: Diabetes mellitus, chronic abdominal pain, and gastroparesis. PAST SURGICAL HISTORY: Cholecystectomy and nerve stimulator. FAMILY HISTORY: Noncontributory. SOCIAL HISTORY: Negative x3. HOME MEDICATIONS: See list. ALLERGIES: TO CLONIDINE. PHYSICAL EXAMINATION: VITAL SIGNS: Pulse oximeter 98%, BP 103/65, resp irations 20, pulse 128, and temperature 97.3. GENERAL APPEARANCE: The patient in mild distress . HEAD, EYES, EARS, NOSE, AND THROAT: Atraumatic. NECK: Supple. CHEST: Normal breath sounds. CARDIOVASCULAR SYSTEM: Regular rate and rhythm. PATIENT NAME: RADHA CARPENTER [id number] ABDOMEN: Left upper quadrant tender. BACK: Inspection normal. SKIN: Atraumatic. LABORATORY DATA: WBC 9. Sodium 133, glucose 370, BUN 30, creatinine 1.70, and estimated GFR 45.58. HOSPITAL COURSE: The patient was admitted to medical floor with above admission diagnoses. See admission orders. Symptomatic the rapy for pain and nausea. Following day, the patient tolerated clear liqui d diet for now. Requesting Dilaudid. Continue current management. On 10/16/2019, the patient not able to tolerate diet, vomited in a.m. and complained of pain. Continue aggressive medical management. Symptomatic therapy for pain and nausea. Try to adva nce diet as tolerated. Restart weaning narcotics as tolerated. Following day, the patient was feeling better, a ble to tolerate full liquids/soft diet and wanted to go home. He was clinically and hemodynamically stable and was ready for discharge. DISCHARGE INSTRUCTIONS: DISPOSITION: Radha Carpenter was discharged home on 10/17/2019. FOLLOWUP APPOINTMENT: Followup an appointment as instructed. RECOMMENDATIONS: Given. DISCHARGE MEDICATIONS: Pepcid, NovoLog, Lantus, Pamelor, Zocor, Carafate, and Ambien. Dictated By: ARAMIS Eastman Nurse Sexual Assault for Wilmer William MD WT: DS:VINCE/SAVANAH/ANA LILIA Conf#: [id number]/DID#: [id number] Authenticated and Edited by Simone Renteria On 10/23 6:22:46 AM Authenticated by Wilmer William MD On 020 08:39:14 AM at 0839 at 0839 PATIENT NAME: RADHA CARPENTER [id number] 2019-10-17 11:47:00-00:00 [facility] Hospitalist Progress Note REPORT#:[id number] REPORT STATUS: Signed DATE:10/17/19 TIME: 1147 PATIENT: RADHA CARPENTER UNIT #: [id number] ROOM/BED: [address] : 82 AGE: 39 SEX: M ATTEND: Arron William MD ADM AUTHOR: Wilmer William MD * ALL edits or amendments must be made on the el [employer]ronic/computer document * Subjective HPI: feels better has been able to tolerated full liquids/soft t wants to go home Review of Systems All systems rev neg: except as marked Objective General VS/I O: Vital Signs: Date Time Temp Pulse Resp B/P B/P Pulse O2 O2 Flow FiO2 Mean Ox Delivery Rate 10/16 714 98.2 117 20 151/99 116.1 94 Room air 10/16 0448 98.2 110 16 132/89 103.4 93 Room air 10/16 0030 98.4 123 16 133/86 101.9 96 Room air 10/15 1928 98.4 106 16 141/88 105.6 93 Room air 10/15 1503 97.5 109 20 137/90 105.5 98 Room air 10/15 1154 97.9 110 16 122/80 93.6 97 Room air 24 hour I O ending at 0700: 10/16 0700 10/15 1900 Intake Total 320 Output Total Balance 320 Intake, Oral 320 Number 0 Bowel Movements Number Voids 3 Patient Weight Weight (lb): Weight (oz): Weight (kg): 86.364 Medications: Active Meds + DC'd Last 24 Hrs Prochlorperazine Edisylate 10 MG Q6H PRN PRN IV Sucralfate 1 GM AC HS PO Lactated Ringer's 1,000 ML .Q8H IV Hydromorphone HCl 1 MG Q4H PRN PRN IV Dicyclomine HCl 20 MG Q6H PRN PRN PO Enoxaparin Sodium 40 MG DAILY 0800 SUBQ Famotidine 20 MG BEDTIME PO Nortriptyline HCl 50 MG BEDTIME PO Simvastatin 10 MG BEDTIME PO Zolpidem Tartrate 10 MG BEDTIME PO Insulin Human Regular SLIDING SCALE AC HS SUBQ Dextrose/Water 25 ML ASDIR PRN IV Glucagon 1 MG ASDIR PRN IM Ondansetron HCl 4 MG Q4H PRN PRN IV Results Findings/Data: Laboratory Tests 10/16 10/16 10/16 10/15 10/15 1112 0640 0259 2009 1544 Chemistry Sodium (136 - 145 mmol/L) 137 Potassium (3.5 - 5.1 mmol/L) 4.1 Chloride (98 - 107 mmol/L) 103 Carbon Dioxide (21 - 32 mmol/L) 27 BUN (7 - 18 mg/dL) 6 L Creatinine (0.67 - 1.17 mg/dL) 0.80 Estimated GFR (MDRD) (>=60) > 60.00 Glucose (70 - 100 mg/dL) 287 H POC Glucose (70 - 105 mg/dL) 223 H 281 H 123 H 156 H Calcium (8.5 - 10.1 mg/dL) 8.8 Total Bilirubin (0.2 - 1.0 mg/dl) 0.7 AST (15 - 37 U/L) 44 H ALT (12 - 78 U/L) 28 Alkaline Phosphatase (50 - 136 U/L) 54 Total Protein (6.4 - 8.2 g/dl) 6.6 Albumin (3.4 - 5.0 g/dl) 3.2 L Laboratory Tests 10/16 0259 Hematology WBC (4.5 - 11.0 X10(3)) 5.7 RBC (4.3 - 5.9 X10(6)) 4.17 L Hgb (13.5 - 18.0 g/dL) 12.9 L Hct (42.0 - 52.0 %) 37.9 L MCV (78 - 100 fl) 90.9 MCH (26.0 - 34.0 pg) 30.9 MCHC (30.0 - 37.0 g/dl) 34.0 RDW (11.5 - 14.5 %) 11.5 Plt Count (150 - 350 X10(3)) 252 MPV (8.7 - 11.4 fl) 10.3 Neut % (Auto) (36.0 - 66.0 %) 58.6 Lymph % (Auto) (16.0 - 50.0 %) 31.6 Dixie % (Auto) (0.0 - 13.0 %) 8.4 Eos % (Auto) (0.0 - 4.5 %) 0.7 Baso % (Auto) (0.0 - 1.5 %) 0.2 Immature Gran # (Auto) (0.00 - 0.03 X10(3)uL) 0.03 Absolute Neuts (auto) (1.70 - 7.70 X10(3)) 3.35 Absolute Lymphs (auto) (0.70 - 4.00 X10(3)) 1.8 1 Absolute Monos (auto) (0.00 - 0.89 X10(3)) 0.48 Absolute Eos (auto) (0.00 - 0.60 X10(3)) 0.04 Absolute Basos (auto) (0.00 - 0.20 X10(3)) 0.01 Absolute Nucleated RBC (0.0 - 0.1 K/mm3) 0.00 Immature Gran % (0.0 - 2.0 %) 0.5 Nucleated RBC % (0 - 0.2 %) 0.0 Free Text Obj Notes Free Text Obj Notes: General appearance: chronically ill appearing, a lert, awake, oriented Head/Eyes: atraumatic, normal conjunctiva/sclera , normocephalic, PERRLA ENT: moist mucosal membranes Neck: full range of motion, non-tender, supple/n o meningismus Cardiovascular: normal capillary refill, normal heart sounds, regular rate rhythm, no murmur, no rub Respiratory: aerating well, clear to auscultatio n, symmetric expansion, no distress Abdomen: abnormal bowel sounds, tenderness, soft , no distention Extremities: moves all, no clubbing, no cyanosis , no edema Musculoskeletal: normal inspection Neuro/AIRLINE COUNTER AGENT: alert, oriented X 3 Skin: dry, intact, no rash Psychiatry: normal affect, normal judgment/insig ht Diagnosis, Assessment Plan Free Text DxA P Notes Free text DxA P notes: * admitted with intractable nausea and vomiting * abdominal pain * and gastroparesis * diabetes, pporly controlled. * narcotic dependent. Plan * ok to dc home * diet as tolerated * outpatient folllow up with pcp at 1723 RPT #:[id number] END OF REPORT 2019-10-16 13:07:00-00:00 [facility] Hospitalist Progress Note REPORT#:[id number] REPORT STATUS: Signed DATE:10/16/19 TIME: 1307 PATIENT: RADHA CARPENTER UNIT #: [id number] ROOM/BED: [address] : 82 AGE: 39 SEX: M ATTEND: Arron William MD ADM AUTHOR: Wilmer William MD * ALL edits or amendments must be made on the el [employer]/computer document * Subjective HPI: not able to tolerated diet has vomited this morning complaints of pain Review of Systems All systems rev neg: except as marked Objective General VS/I O: Vital Signs: Date Time Temp Pulse Resp B/P B/P Pulse O2 O2 F low FiO2 Mean Ox Delivery Rate 10/15 1154 97.9 110 16 122/80 93.6 97 Room air 10/15 0754 98.1 107 20 121/82 95.2 97 Room air 10/15 0421 98.2 112 18 129/83 98.0 97 Room air 10/14 2345 97.9 105 16 147/94 111.5 98 Room air 10/14 2019 98.4 104 17 150/93 111.9 99 Room air 10/14 1602 97.5 104 16 142/92 108.4 100 Room ai r 24 hour I O ending at 0700: 10/15 0700 10/14 1900 Intake Total 400 Output Total Balance 400 Intake, Oral 400 Number 1 0 Bowel Movements Number Voids 2 2 Patient Weight Weight (lb): Weight (oz): Weight (kg): 86.364 Medications: Active Meds + DC'd Last 24 Hrs Sucralfate 1 GM AC HS PO Lactated Ringer's 1,000 ML .Q8H IV Lactated Ringer's 1,000 ML BOLUS ONCE ONE IV (DC ) Metoclopramide HCl 10 MG TID MEALS IV (DC) Hydromorphone HCl 1 MG Q4H PRN PRN IV Dicyclomine HCl 20 MG Q6H PRN PRN PO Enoxaparin Sodium 40 MG DAILY 0800 SUBQ Famotidine 20 MG BEDTIME PO Nortriptyline HCl 50 MG BEDTIME PO Simvastatin 10 MG BEDTIME PO Zolpidem Tartrate 10 MG BEDTIME PO Insulin Human Regular SLIDING SCALE AC HS SUBQ Dextrose/Water 25 ML ASDIR PRN IV Glucagon 1 MG ASDIR PRN IM Ondansetron HCl 4 MG Q4H PRN PRN IV Results Findings/Data: Laboratory Tests 10/15 10/15 10/14 10/14 1131 0658 2217 1726 Chemistry POC Glucose (70 - 105 mg/dL) 203 H 219 H 168 H 115 H Free Text Obj Notes Free Text Obj Notes: General appearance: chronically ill appearing, a lert, awake, oriented Head/Eyes: atraumatic, normal conjunctiva/sclera , normocephalic, PERRLA ENT: moist mucosal membranes Neck: full range of motion, non-tender, supple/n o meningismus Cardiovascular: normal capillary refill, normal heart sounds, regular rate rhythm, no murmur, no rub Respiratory: aerating well, clear to auscultatio n, symmetric expansion, no distress Abdomen: abnormal bowel sounds, tenderness, soft , no distention Extremities: moves all, no clubbing, no cyanosis , no edema Musculoskeletal: normal inspection Neuro/AIRLINE COUNTER AGENT: alert, oriented X 3 Skin: dry, intact, no rash Psychiatry: normal affect, normal judgment/insig ht Diagnosis, Assessment Plan Free Text DxA P Notes Free text DxA P notes: * admitted with intractable nausea and vomiting * abdominal pain * and gastroparesis * diabetes, pporly controlled. * narcotic dependent. Plan * continue with aggressive medical management * continue IV hydration * replace electrolytes * symptomatic therapy for pain and nausea * will try to advance diet as tolerated * blood sugar control * we will start weaning narcotics as tolerated. at 1307 RPT #:[id number] END OF REPORT 2019-10-15 13:44:00-00:00 [facility] Hospitalist Progress Note REPORT#:[id number] REPORT STATUS: Signed DATE:10/15/19 TIME: 1344 PATIENT: RADHA CARPENTER UNIT #: [id number] ROOM/BED: [address] : 82 AGE: 39 SEX: M ATTEND: Arron William MD ADM AUTHOR: Wilmer William MD * ALL edits or amendments must be made on the el [employer]/computer document * Subjective HPI: Patient is still complaining of significant abdo zulma pain has been requesting dilaudid around the clock. Review of Systems All systems rev neg: except as marked Objective General VS/I O: Vital Signs: Date Time Temp Pulse Resp B/P B/P Pulse O2 O2 F low FiO2 Mean Ox Delivery Rate 10/14 1151 97.5 103 16 131/89 103.2 98 Room air 10/14 0806 98.4 118 20 143/88 106.1 99 Room air 10/14 0413 98.2 108 20 117/80 92.0 98 Room air 10/14 0045 97.7 104 18 139/94 109.0 95 Room ai r 10/13 1933 97.7 103 18 118/78 91.3 95 Room air 10/13 1628 129 18 158/92 113.7 96 Room air 24 hour I O ending at 0700: 10/14 0700 10/13 1900 Intake Total 906.00 363.00 Output Total Balance 906.00 363.00 Intake, IV 6.00 3.00 Intake, Oral 900 360 Number 1 0 Bowel Movements Number Voids 4 2 Patient Weight Weight (lb): Weight (oz): Weight (kg): 86.364 Medications: Active Meds + DC'd Last 24 Hrs Lactated Ringer's 1,000 ML .Q8H IV Lactated Ringer's 1,000 ML BOLUS ONCE ONE IV (DC ) Metoclopramide HCl 10 MG TID MEALS IV Hydromorphone HCl 1 MG Q4H PRN PRN IV Dicyclomine HCl 20 MG Q6H PRN PRN PO Hydromorphone HCl 1 MG Q6H PRN PRN IV (DC) Enoxaparin Sodium 40 MG DAILY 0800 SUBQ Famotidine 20 MG BEDTIME PO Nortriptyline HCl 50 MG BEDTIME PO Simvastatin 10 MG BEDTIME PO Zolpidem Tartrate 10 MG BEDTIME PO Insulin Human Regular SLIDING SCALE AC HS SUBQ Dextrose/Water 25 ML ASDIR PRN IV Glucagon 1 MG ASDIR PRN IM Ondansetron HCl 4 MG Q4H PRN PRN IV Results Findings/Data: Laboratory Tests 10/14 10/14 10/14 10/13 10/13 1122 1122 0701 2057 1558 Chemistry Sodium (136 - 145 mmol/L) 135 L Potassium (3.5 - 5.1 mmol/L) 3.6 Chloride (98 - 107 mmol/L) 102 Carbon Dioxide (21 - 32 mmol/L) 28 BUN (7 - 18 mg/dL) 14 Creatinine (0.67 - 1.17 mg/dL) 0.80 Estimated GFR (MDRD) (>=60) > 60.00 Glucose (70 - 100 mg/dL) 206 H POC Glucose (70 - 105 mg/dL) 233 H 221 H 176 H 204 H Calcium (8.5 - 10.1 mg/dL) 9.1 Total Bilirubin (0.2 - 1.0 mg/dl) 0.6 AST (15 - 37 U/L) 18 ALT (12 - 78 U/L) 30 Alkaline Phosphatase (50 - 136 U/L) 56 Total Protein (6.4 - 8.2 g/dl) 7.4 Albumin (3.4 - 5.0 g/dl) 3.7 Laboratory Tests 10/14 1122 Hematology WBC (4.5 - 11.0 X10(3)) 5.3 RBC (4.3 - 5.9 X10(6)) 4.38 Hgb (13.5 - 18.0 g/dL) 13.4 L Hct (42.0 - 52.0 %) 40.0 L MCV (78 - 100 fl) 91.3 MCH (26.0 - 34.0 pg) 30.6 MCHC (30.0 - 37.0 g/dl) 33.5 RDW (11.5 - 14.5 %) 11.6 Plt Count (150 - 350 X10(3)) 261 MPV (8.7 - 11.4 fl) 10.7 Neut % (Auto) (36.0 - 66.0 %) 62.0 Lymph % (Auto) (16.0 - 50.0 %) 29.8 Dixie % (Auto) (0.0 - 13.0 %) 6.3 Eos % (Auto) (0.0 - 4.5 %) 1.1 Baso % (Auto) (0.0 - 1.5 %) 0.4 Immature Gran # (Auto) (0.00 - 0.03 X10(3)uL) 0 .02 Absolute Neuts (auto) (1.70 - 7.70 X10(3)) 3.26 Absolute Lymphs (auto) (0.70 - 4.00 X10(3)) 1.5 7 Absolute Monos (auto) (0.00 - 0.89 X10(3)) 0.33 Absolute Eos (auto) (0.00 - 0.60 X10(3)) 0.06 Absolute Basos (auto) (0.00 - 0.20 X10(3)) 0.02 Absolute Nucleated RBC (0.0 - 0.1 K/mm3) 0.00 Immature Gran % (0.0 - 2.0 %) 0.4 Nucleated RBC % (0 - 0.2 %) 0.0 Free Text Obj Notes Free Text Obj Notes: General appearance: chronically ill appearing, a lert, awake, oriented Head/Eyes: atraumatic, normal conjunctiva/sclera , normocephalic, PERRLA ENT: moist mucosal membranes Neck: full range of motion, non-tender, supple/n o meningismus Cardiovascular: normal capillary refill, normal heart sounds, regular rate rhythm, no murmur, no rub Respiratory: aerating well, clear to auscultatio n, symmetric expansion, no distress Abdomen: abnormal bowel sounds, tenderness, soft , no distention Extremities: moves all, no clubbing, no cyanosis , no edema Musculoskeletal: normal inspection Neuro/AIRLINE COUNTER AGENT: alert, oriented X 3 Skin: dry, intact, no rash Psychiatry: normal affect, normal judgment/insig ht Diagnosis, Assessment Plan Free Text DxA P Notes Free text DxA P notes: * admitted with intractable nausea and vomiting * abdominal pain * and gastroparesis * diabetes, pporly controlled. * narcotic dependent. Plan * continue with aggressive medical management * continue IV hydration * replace electrolytes * symptomatic therapy for pain and nausea * will try to advance diet as tolerated * blood sugar control * we will start weaning narcotics as tolerated. at 1345 RPT #:[id number] END OF REPORT 2019-10-14 13:18:00-00:00 [facility] Hospitalist Progress Note REPORT#:[id number] REPORT STATUS: Signed DATE:10/14/19 TIME: 1317 PATIENT: RADHA CARPENTER UNIT #: [id number] [facility] AGE: 39 SEX: M ATTEND: Arron William MD ADM AUTHOR: Wilmer William MD * ALL edits or amendments must be made on the el [employer]/computer document * Subjective HPI: the patient received bed, appears to be no obvi ous distress has tolerated clear liquid diet for now patient continues requesting his Dilaudid Review of Systems All systems rev neg: except as marked Objective General VS/I O: Vital Signs: Date Time Temp Pulse Resp B/P B/P Pulse O2 O2 F low FiO2 Mean Ox Delivery Rate 10/13 1128 98.1 121 18 121/80 93.5 97 Room air 10/13 0709 97.9 114 18 135/93 107.2 100 Room ai r 10/13 0331 97.7 100 16 111/77 88.6 97 Room air 10/12 2337 97.9 101 16 106/67 80.4 97 Room air 10/12 1921 97.5 96 16 109/74 85.7 99 Room air 10/12 1706 97.3 100 15 108/73 84.8 97 Room air 24 hour I O ending at 0700: 10/13 0700 10/12 1900 Intake Total 1130.00 1000.00 Output Total 1 Balance 1129.00 1000.00 Intake, IV 30.00 1000.00 Intake, Oral 1100 Number 1 Bowel Movements Number Voids 3 Output, Urine 1 Patient Weight Weight (lb): Weight (oz): Weight (kg): 86.364 Medications: Active Meds + DC'd Last 24 Hrs Hydromorphone HCl 1 MG Q6H PRN PRN IV Enoxaparin Sodium 40 MG DAILY 0800 SUBQ Famotidine 20 MG BEDTIME PO Nortriptyline HCl 50 MG BEDTIME PO Simvastatin 10 MG BEDTIME PO Zolpidem Tartrate 10 MG BEDTIME PO Insulin Human Regular SLIDING SCALE AC HS SUBQ Dextrose/Water 25 ML ASDIR PRN IV Glucagon 1 MG ASDIR PRN IM Hydromorphone HCl 1 MG Q4H PRN PRN IV (DC) Ondansetron HCl 4 MG Q4H PRN PRN IV Sodium Chloride 1,000 ML NOW ONE IV (DC) Results Findings/Data: Laboratory Tests 10/13 10/13 10/12 10/12 1120 0620 2051 1600 Chemistry POC Glucose (70 - 105 mg/dL) 241 H 218 H 189 H 253 H Free Text Obj Notes Free Text Obj Notes: General appearance: chronically ill appearing, a lert, awake, oriented Head/Eyes: atraumatic, normal conjunctiva/sclera , normocephalic, PERRLA ENT: moist mucosal membranes Neck: full range of motion, non-tender, supple/n o meningismus Cardiovascular: normal capillary refill, normal heart sounds, regular rate rhythm, no murmur, no rub Respiratory: aerating well, clear to auscultatio n, symmetric expansion, no distress Abdomen: abnormal bowel sounds, tenderness, soft , no distention Extremities: moves all, no clubbing, no cyanosis , no edema Musculoskeletal: normal inspection Neuro/AIRLINE COUNTER AGENT: alert, oriented X 3 Skin: dry, intact, no rash Psychiatry: normal affect, normal judgment/insig ht Diagnosis, Assessment Plan Free Text DxA P Notes Free text DxA P notes: * admitted with intractable nausea and vomiting * abdominal pain * and gastroparesis * diabetes, pporly controlled. * narcotic dependent. Plan * continue with aggressive medical management * IV hydration * replace electrolytes * symptomatic therapy for pain and nausea * will try to advance diet as tolerated * blood sugar control * we will start weaning narcotics * expected to be discharged soon if stable at 1320 RPT #:[id number] END OF REPORT 2019-10-13 10:55:00-00:00 [facility] History Physical - Adult REPORT#:[id number] REPORT STATUS: Signed DATE:10/13/19 TIME: 1055 PATIENT: RADHA CARPENTER UNIT #: [id number] ROOM/BED: [address] : 82 AGE: 39 SEX: M ATTEND: Arron William MD ADM AUTHOR: Wilmer William MD * ALL edits or amendments must be made on the el [employer]/computer document * History of Present Illness HPI PCP: PCP: Galindo Chris MD HPI: The patient is a 39-year-old male patie nt with a history of diabetes and gastroparesis chronic abdominal pain, , pres ented to the emergency department complaining of increased abdominal pa in and intractable nausea and vomiting, with oral intolerance. during the initial evaluati on in the emergency department the patient has been found dehydrated multiple isolates abnormalities , no decision was to admit the patient for rehydr ation and electrolyte replacement. History Past medical history: Reports: Diabetes mellitus. Additional medical history: Past medical history: Reports: Diabetes mellitus. Additional medical history: Reports chronic abdominal pain and gastroparesi s Past surgical history: Reports: Cholecystectomy. Additional surgical history: Past surgical history: Reports: Cholecystectomy. Additional surgical history: Reports having a nerve stimulator Additional family history: Noncontributory Alcohol use: Denies EtOH use Drug use: Denies recreational drugs Smoking status for patients 13 years old or olde r: Never Smoker Other social history: Disabled, Good social supp ort Medication/Allergy-Vaccine Hx Home Medications: FAMOTIDINE (PEPCID) 20 MG PO BEDTIME INSULIN ASPART (NovoLOG) INSULIN GLARGINE (LANTUS) NORTRIPTYLINE (PAMELOR) 50 MG PO BEDTIME SIMVASTATIN (ZOCOR) 10 MG PO BEDTIME ZOLPIDEM (AMBIEN) 10 MG PO BEDTIME Allergies: Coded Allergies: clonidine (ANXIETY 05/20/19) Review of Systems All systems rev neg: except as marked Physical Exam VS/I O Vital Signs: Date Time Temp Pulse Resp B/P B/P Pulse O2 O2 F low FiO2 Mean Ox Delivery Rate 10/12 1119 97.5 104 17 102/67 78.6 94 Room air 10/12 0822 97.7 119 17 106/71 82.9 98 Room air 10/12 0736 98.2 106 18 139/87 104 98 Room air 10/12 0636 98.1 105 20 122/79 93 99 Room air 10/12 0543 97.3 128 20 103/65 77 98 Room air 24 hour I O ending at 0700: 10/12 0700 10/11 1900 Intake Total Output Total Balance Patient 86.364 kg Weight Weight Stated/Reported Measurement Method Patient Weight Weight (lb): Weight (oz): Weight (kg): 86.364 Results Findings/Data: Laboratory Tests: 10/12 10/12 10/12 0759 0658 0555 Chemistry Sodium (136 - 145 mmol/L) 133 L Potassium (3.5 - 5.1 mmol/L) 4.7 Chloride (98 - 107 mmol/L) 100 Carbon Dioxide (21 - 32 mmol/L) 22 BUN (7 - 18 mg/dL) 30 H Creatinine (0.67 - 1.17 mg/dL) 1.70 H Estimated GFR (MDRD) (>=60) 45.58 L Glucose (70 - 100 mg/dL) 370 H POC Glucose (70 - 105 mg/dL) 352 H Calcium (8.5 - 10.1 mg/dL) 10.1 Total Bilirubin (0.2 - 1.0 mg/dl) 0.5 Direct Bilirubin (0.0 - 0.4 mg/dl) 0.09 AST (15 - 37 U/L) 0 L ALT (12 - 78 U/L) 37 Alkaline Phosphatase (50 - 136 U/L) 69 Troponin I (0.00 - 0.045 ng/ml) <0.015 Total Protein (6.4 - 8.2 g/dl) 8.8 H Albumin (3.4 - 5.0 g/dl) 4.5 Lipase (73 - 393 U/L) 68 L Hematology WBC (4.5 - 11.0 X10(3)) 9.2 RBC (4.3 - 5.9 X10(6)) 5.01 Hgb (13.5 - 18.0 g/dL) 15.3 Hct (42.0 - 52.0 %) 45.5 MCV (78 - 100 fl) 90.8 MCH (26.0 - 34.0 pg) 30.5 MCHC (30.0 - 37.0 g/dl) 33.6 RDW (11.5 - 14.5 %) 11.6 Plt Count (150 - 350 X10(3)) 305 MPV (8.7 - 11.4 fl) 10.6 Neut % (Auto) (36.0 - 66.0 %) 53.9 Lymph % (Auto) (16.0 - 50.0 %) 37.8 Dixie % (Auto) (0.0 - 13.0 %) 7.0 Eos % (Auto) (0.0 - 4.5 %) 0.4 Baso % (Auto) (0.0 - 1.5 %) 0.4 Immature Gran # (Auto) (0.00 - 0.03 X10(3)uL) 0 .05 H Absolute Neuts (auto) (1.70 - 7.70 X10(3)) 4.95 Absolute Lymphs (auto) (0.70 - 4.00 X10(3)) 3.4 7 Absolute Monos (auto) (0.00 - 0.89 X10(3)) 0.64 Absolute Eos (auto) (0.00 - 0.60 X10(3)) 0.04 Absolute Basos (auto) (0.00 - 0.20 X10(3)) 0.04 Absolute Nucleated RBC (0.0 - 0.1 K/mm3) 0.00 Immature Gran % (0.0 - 2.0 %) 0.5 Nucleated RBC % (0 - 0.2 %) 0.0 Toxicology Ketones (NEGATIVE mg/dl) 80 H Urines Urine Color (YELLOW) LT YELLOW Urine Appearance (CLEAR) CLEAR Urine pH (4.6 - 8.0) 5.5 Ur Specific [place] (1.001 - 1.035) 1.029 Urine Protein (NEGATIVE mg/dl) NEGATIVE Urine Glucose (UA) (NORMAL mg/dl) >1000 Urine Blood (NEGATIVE /UL) NEGATIVE Urine Nitrite (NEGATIVE) NEGATIVE Urine Bilirubin (NEGATIVE mg/dl) NEGATIVE Urine Urobilinogen (NORMAL mg/dl) NORMAL Ur Leukocyte Esterase (NEGATIVE /UL) 75 H Urine RBC (0 - 5 #/hpf) 3-5 Urine WBC (0 - 5 #/hpf) 11-25 H Ur Epithelial Cells (NEG,FEW /hpf) FEW Urine Bacteria (NEGATIVE /hpf) FEW H Hyaline Casts (0 - 2 #/lpf) 3-5 H Urine Comment CLN CATCH Free Text PE Notes Free Text PE Notes: General appearance: chronically ill appearing, a lert, awake, oriented Head/Eyes: atraumatic, normal conjunctiva/sclera , normocephalic, PERRLA ENT: moist mucosal membranes Neck: full range of motion, non-tender, supple/n o meningismus Cardiovascular: normal capillary refill, normal heart sounds, regular rate rhythm, no murmur, no rub Respiratory: aerating well, clear to auscultatio n, symmetric expansion, no distress Abdomen: abnormal bowel sounds, tenderness, soft , no distention Extremities: moves all, no clubbing, no cyanosis , no edema Musculoskeletal: normal inspection Neuro/AIRLINE COUNTER AGENT: alert, oriented X 3 Skin: dry, intact, no rash Psychiatry: normal affect, normal judgment/insig ht Diagnosis, Assessment Plan Free Text DxA P Notes Free Text DxA P Notes: * admitted with intractable nausea and vomiting * abdominal pain * and gastroparesis * diabetes * narcotic dependent. Plan * the patient will be admitted to the medical tn oor. * IV hydration * and replace electrolytes * symptomatic therapy for pain and nausea * blood sugar control * diet as tolerated * further recommendations based on hospital cour se at 1320 RPT #:[id number] END OF REPORT 2019-10-13 06:34:00-00:00 [facility] EMERGENCY PROVIDER REPORT REPORT#:[id number] REPORT STATUS: Signed DATE:10/13/19 TIME: 633 PATIENT: RADHA CARPENTER UNIT #: [id number] ROOM/BED: AGE: 39 SEX: M PCP PHYS: Galindo Chris MD SERVICE AUTHOR: Emir Marx DO * ALL edits or amendments must be made on the [employer]/computer document * HPI-Abd Pain M Under 40 General Initial Greet Date/Time 10/13/19 0542 Presentation Chief Complaint Abdominal pain Sudden in Onset? No Free Text HPI Notes Free Text HPI Notes 39-year-old male came in [facility] plaining of left upper quadrant pain started at 8 PM yesterday. Patient is complaining also of vomiti ng x4 and diarrhea x4. Pain feels like the pain he has had before when his g astroparesis is acting up. No headache, no dizziness, no lightheadedness, no f ever, no cough, shortness of breath. Review of Systems Focused Review of Systems Constitutional Denies: Chills, Fatigue, Fever, Lethargy, Malais e, Recent wt loss, Weakness - generalized. Respiratory Denies: Cough, non-productive, Cough, productive , Dyspnea on exertion, Hemoptysis, Parox nocturnal dyspnea, Pleuritic p ain, Shortness of breath, Wheezing. Cardiovascular Denies: Chest pain, Dyspnea on exertion, Edema, Orthopnea, Palpitations, Parox nocturnal dyspnea, Syncope. GI Reports: Abdominal pain, Yong rrhea, Vomiting. Denies: Anorexia, Belching, Bloody /tarry stool, Constipation, Dysphagia, Hematemesis, Hematochezia, Mucousy stool, Melena, Nausea, Rectal pain. Male Denies: Dysuria, Flank pain, Hematuria, Incontinence, Nocturia, Penile discharge , Penile lesion, Scrotal swe lling, Testicular pain, Testicular swelling, Urinary frequency, Urinary urgency, Urination decreased, Urination increased. Musculoskeletal Denies: Back pain, Extremity pain, Extremity swe lling, Joint pain, Joint swelling, Lumbar pain, Myalgia, Neck pain, Thora cic pain. Past Medical History - Adult Stated Complaint ABD PAIN Allergies Coded Allergies: clonidine (ANXIETY 05/20/19) Home Medications Reported Medications NORTRIPTYLINE (PAMELOR) 50 MG PO BEDTIME FAMOTIDINE (PEPCID) 20 MG PO BEDTIME SIMVASTATIN (ZOCOR) 10 MG PO BEDTIME ZOLPIDEM (AMBIEN) 10 MG PO BEDTIME INSULIN GLARGINE (LANTUS) INSULIN ASPART (NovoLOG) Additional Medical History Past medical history: Reports: Diabetes mellitus. Additional medical history: Reports chronic abdominal pain and gastroparesis Additional Surgical History Past surgical history: Reports: Cholecystectomy. Additional surgical history: Reports having a nerve stimulator Physical Exam Vital Signs Vital Signs First Documented: Result Date Time Pulse Ox 98 10/12 542 B/P 103/65 10/12 542 B/P Mean 77 10/12 542 O2 Delivery Room air 10/12 05 Temp 36.3 10/12 05 Pulse 128 10/12 0543 Resp 20 10/12 0543 Last Documented: Result Date Time Pulse Ox 99 10/13 635 B/P 122/79 10/12 0536 B/P Mean 93 10/12 0536 O2 Delivery Room air 10/13 635 Temp 36.7 10/12 06 Pulse 105 10/12 0636 Resp 20 10/12 0636 Review of Vital Signs Reviewed Focused PE General/Const Distress/Hydration Distress mild. MS Head Head Atraumatic, Normocephalic Eyes Eyes Atraumatic, PERRL, EOMI, No nystagmus Ears/Nose/Throat Ears/Nose/Throat Atraumatic, Airway patent, Muc ous membranes moist, Pharynx NL Resp/Chest Respiratory/Chest Atraumatic, Breath sounds NL, Breath sounds = bilat, No respiratory distress, No rales Cardiovascular Cardiovascular Heart rate NL, Regular rhythm, H eart sounds NL, No gallop Abdomen/GI Abdomen/GI Atraumatic, Soft Tenderness/Guarding/Rebound Tender LUQ. MS Back Back Atraumatic, Inspection NL, Full range of m otion Skin Skin Atraumatic, Color NL, No rash, Warm Neurologic Neurologic Oriented X3, Speech NL, No motor def icits, No sensory deficits Interpretation Diagnostics Lab Results Interpretation Results Laboratory Tests 10/13/19 0555: [Embedded Image Not Available] Laboratory Tests: 10/12 554 Chemistry Sodium (136 - 145 mmol/L) 133 L Potassium (3.5 - 5.1 mmol/L) 4.7 Chloride (98 - 107 mmol/L) 100 Carbon Dioxide (21 - 32 mmol/L) 22 BUN (7 - 18 mg/dL) 30 H Creatinine (0.67 - 1.17 mg/dL) 1.70 H Estimated GFR (MDRD) (>=60) 45.58 L Glucose (70 - 100 mg/dL) 370 H Calcium (8.5 - 10.1 mg/dL) 10.1 Total Bilirubin (0.2 - 1.0 mg/dl) 0.5 Direct Bilirubin (0.0 - 0.4 mg/dl) 0.09 AST (15 - 37 U/L) 0 L ALT (12 - 78 U/L) 37 Alkaline Phosphatase (50 - 136 U/L) 69 Troponin I (0.00 - 0.045 ng/ml) <0.015 Total Protein (6.4 - 8.2 g/dl) 8.8 H Albumin (3.4 - 5.0 g/dl) 4.5 Lipase (73 - 393 U/L) 68 L Hematology WBC (4.5 - 11.0 X10(3)) 9.2 RBC (4.3 - 5.9 X10(6)) 5.01 Hgb (13.5 - 18.0 g/dL) 15.3 Hct (42.0 - 52.0 %) 45.5 MCV (78 - 100 fl) 90.8 MCH (26.0 - 34.0 pg) 30.5 MCHC (30.0 - 37.0 g/dl) 33.6 RDW (11.5 - 14.5 %) 11.6 Plt Count (150 - 350 X10(3)) 305 MPV (8.7 - 11.4 fl) 10.6 Neut % (Auto) (36.0 - 66.0 %) 53.9 Lymph % (Auto) (16.0 - 50.0 %) 37.8 Dixie % (Auto) (0.0 - 13.0 %) 7.0 Eos % (Auto) (0.0 - 4.5 %) 0.4 Baso % (Auto) (0.0 - 1.5 %) 0.4 Immature Gran # (Auto) (0.00 - 0.03 X10(3)uL) 0 .05 H Absolute Neuts (auto) (1.70 - 7.70 X10(3)) 4.9 5 Absolute Lymphs (auto) (0.70 - 4.00 X10(3)) 3.4 7 Absolute Monos (auto) (0.00 - 0.89 X10(3)) 0.64 Absolute Eos (auto) (0.00 - 0.60 X10(3)) 0.04 Absolute Basos (auto) (0.00 - 0.20 X10(3)) 0.04 Absolute Nucleated RBC (0.0 - 0.1 K/mm3) 0.00 Immature Gran % (0.0 - 2.0 %) 0.5 Nucleated RBC % (0 - 0.2 %) 0.0 ECG #1 Interpretation Text/Dict Note Sinus tachycardia, rightward axis, no ST elevati on. Date 10/13/19 Time 0536 Interpreted by and reviewed by me, ED physician Re-Evaluation MDM )( Re-Evaluation/Progress #1 Time of Re-Eval 0649 )( Re-Eval Status Improved ED Course Medication(s) Ordered Medication(s) Ordered: Cardiovascular Drugs Sig/Sima Start time Last Medication Dose Route Stop Time Status Admin Lidocaine HCl 10 ML X1ED STA 10/12 0542 DC 09/16 8 PO 10/12 0543 0602 Central Nervous System Agents Sig/Sima Start time Last Medication Dose Route Stop Time Status Admin Hydromorphone HCl 1 MG X1ED STA 10/12 0610 DCr 10/12 IV 10/12 0611 0621 Lorazepam 0.5 MG X1ED STA 10/12 0546 DC 10/12 IV 10/12 0547 0602 Ketorolac 15 MG X1ED STA 10/12 0542 DC 10/12 Tromethamine IV 10/12 0543 0602 Electrolytic, Caloric, And Yumiko Sig/Sima Start time Last Medication Dose Route Stop Time Status Admin Sodium Chloride 1,000 ML X1ED STA 10/12 0542 DC 10/12 IV 10/12 0641 0603 Gastrointestinal Drugs Sig/Sima Start time Last Medication Dose Route Stop Time Status Admin Al Hydrox/Mg Hydrox/ 30 ML X1ED STA 10/12 0542 DC 10/12 Simethicone PO 10/12 0543 0602 Ondansetron HCl 4 MG X1ED STA 10/12 0542 DC IV 10/12 0543 0602 Patient Discharge Departure Vital Signs/Condition Vital Signs First Documented: Result Date Time Pulse Ox 98 10/12 0543 B/P 103/65 10/12 0543 B/P Mean 77 10/12 0543 O2 Delivery Room air 10/12 0543 Temp 36.3 10/12 0543 Pulse 128 10/12 0543 Resp 20 10/12 0543 Last Documented: Result Date Time Pulse Ox 99 10/12 0636 B/P 122/79 10/12 0636 B/P Mean 93 10/12 0636 O2 Delivery Room air 10/12 0636 Temp 36.7 10/12 0636 Pulse 105 10/12 0636 Resp 20 10/12 0636 All vital signs available at the time of this en try have been reviewed. Clinical Impression Clinical Impression Primary Impression: Chronic abdominal pain Disposition Decision Admit Admit Physician Name Wilmer William MD Admit Physician Primary Care Physician Request Time 0700 Request Date 10/13/19 )( Admission Accepts Yes )( Accepted Time 0701 )( Accepted Date 10/13/19 Call Information will see patient Discharge/Care Plan Referrals Galindo Chris MD (PCP) Free Text Depart Notes Free Text Depart Notes Discussed with Dr. William who will know patie nt pretty well. He said he would admit the patient and observe him overnight. Blood work relatively normal except for slight elevation in creatinine. Electronically Signed by Emir Marx DO on 09/16 01/04 at 0701 RPT #:[id number] END OF REPORT 2019-07-08 11:21:00-00:00 [id number] [place], [place] [address] PATIENT NAME: RADHA CARPENTER ADMIT DATE: 0 ACCOUNT NO: [id number] ROOM NO: .[facility] AGE: 38 REPORT TYPE: DISCHARGE SUMMARY SEX: M ADMITTING PHYSICIAN:Josh Norwood ATTENDING PHYSICIAN:Josh Norwood ADMISSION DATE: 06/13/2019 DISCHARGE DATE: 06/17/2019 ADMITTING DIAGNOSES: Severe abdominal pain. DISCHARGE DIAGNOSES: 1. Severe diffuse epigastric abdominal pain. 2. Diabetes mellitus type 1. 3. Diabetic gastroparesis with gastric pacemaker . 4. Chronic abdominal pain. 5. Disabled status. HISTORY OF PRESENT ILLNESS: This is a 38 -year-old male with chief complaint of abdominal pain, who presented to the ED complain ing of abdominal pain that started the day of admission in a.m. The patient states that his abdominal pain has caused the patient to vo kya x3 and diarrhea x3. The patient is experiencing pain to the lower abdomen. Mathew gómez was supposed to have an appointment with PCP in 1 month to get referred to a [facility], b ut could not stand the pain. PAST MEDICAL HISTORY: Diabetes mellitus, chronic abdominal pain, and gastroparesis. PAST SURGICAL HISTORY: Cholecystectomy and nerve stimulator. FAMILY HISTORY: Noncontributory. SOCIAL HISTORY: Unknown if ever smoked. HOME MEDICATIONS: See list. ALLERGIES: CLONIDINE AND METOCLOPRAMIDE. PHYSICAL EXAMINATION: VITAL SIGNS: Pulse oximeter 98%, BP 125/78, temp erature 37.1, pulse 129, and respiratory rate 20. GENERAL APPEARANCE: The patient is alert and maribel ke. HEAD, EYES, EARS, NOSE, THROAT: Normocephalic. CHEST: Normal breath sounds. CARDIOVASCULAR: Tachycardia. ABDOMEN: Tender epigastric and periumbilical. BACK: Inspection normal. SKIN: Normal color. PATIENT NAME: RADHA CARPENTER [id number] LABORATORY DATA: WBC 9, hemoglobin 13, hematocri t 40. Sodium 133, potassium 4, chloride 103, carbon dioxide 27, BUN 29, crea tinine 1.0, and glucose 224. Chest x-ray; no plain film e vidence of acute cardiopulmonary abnormality within the given limitations above. HOSPITAL COURSE: The patient was admitted with a roberth admission diagnoses. See admission's orders. GI consultation requested. Fabiola Kang performed a GI consultation. Reason for consultation; abdominal pain. Agreed with current management. Trial of erythromycin if Reglan is n ot improving symptoms. Check for acute intermittent porphyria. No further rec ommendation. On 06/16/2019, the patient is stable, pain regim en has been adjusted with subsequent minor improvement in his abdominal pa in. As per HPI, the patient with gastroparesis/abdominal pain. Laboratory an d imaging reviewed with no abnormalities identified. Continue maximizing pa in regimen. Continue with antiemetic laxative. No further recommendation a t this time. GI signed off. Following day, abdominal ariel n is improving, no new complaint, and it was okay to discharge the patient. DISCHARGE INSTRUCTIONS: DISPOSITION: Radha Carpenter was discharged home on 06/17/2019. FOLLOWUP APPOINTMENT: Followup an appointment as instructed. RECOMMENDATIONS: Given. DISCHARGE MEDICATIONS: Pepcid, NovoLog, Lantus, Pamelor, Zocor, and Ambien. Dictated By: ARAMIS Eastman Nurse Sexual Assault for Josh Fox MD WT: DS:VINCE/MOISE/ANA LILIA Conf#: [id number]/DID#: [id number] Authenticated and Edited by Simone Renteria On 07/09 9:13:45 AM Authenticated by Josh Berry MD On 07/09/19 12:19:15 PM at 1219 at 1219 PATIENT NAME: RADHA CARPENTER [id number] 2019-06-17 15:07:00-00:00 [facility] Hospitalist Progress Note REPORT#:[id number] REPORT STATUS: Signed DATE:06/17/19 TIME: 1507 PATIENT: RADHA CARPENTER UNIT #: [id number] ROOM/BED: [address] : [birth year] AGE: 38 SEX: M ATTEND: Jamal valle,Josh Salomon ADM AUTHOR: Sandra Torres * ALL edits or amendments must be made on the [employer]/computer document * Subjective Chief Complaint: Last 24 hours: Patient alert and oriented on room air no acute distress. He has been reporting improved abdominal pain. Seen by Dr. Berry last night with orders for discharge today. Review of Systems GI: Reports: abdominal pain. Denies: constipation. : Denies: dysuria. All systems rev neg: except as marked Objective General VS/I O: Vital Signs: Date Time Temp Pulse Resp B/P B/P Pulse O2 O2 F low FiO2 Mean Ox Delivery Rate 06/17 0552 36.7 109 18 123/71 88.4 95 Room air 06/16 2300 36.6 103 19 165/104 124.1 94 Room ai r 06/16 1844 36.4 98 18 146/88 107.4 96 Room air 06/16 1521 36.6 106 19 133/78 96.3 94 Room air 24 hour I O ending at 0700: 06/17 0700 06/16 1900 Intake Total 1650.00 1800.00 Output Total Balance 1650.00 1800.00 Intake, IV 1650.00 1800.00 Patient Weight Weight (lb): Weight (oz): Weight (kg): 78.600 Medications: Active Meds + DC'd Last 24 Hrs Acetaminophen 650 MG Q6H PRN PRN PO (DCD) Dicyclomine HCl 10 MG Q6H PRN PRN PO (DCD) Hydralazine HCl 10 MG Q6H PRN PRN IV (DCD) Magnesium Sulfate 50 ML ASDIR IV (DCD) Potassium Chloride 20 MEQ ASDIR PRN PO (DCD) Potassium Chloride 20 MEQ Q2H PRN PRN PO (DCD) Potassium Chloride 100 ML Q1H PRN PRN IV (DCD) Potassium Chloride 100 ML Q1H PRN PRN IV (DCD) Potassium Chloride 100 ML Q2H PRN PRN IV (DCD) Erythromycin 250 MG Q8HR PO (DCD) Hydromorphone HCl 1 MG Q4H PRN PRN IV (DCD) Lactulose 30 ML BID PRN PRN PO (DCD) Iopamidol 100 ML ONCE PRN IV (DCD) Metoclopramide HCl 10 MG Q8HR IV (DCD) Diphenhydramine HCl 50 MG Q8H IV (DCD) Insulin Human Regular SLIDING SCALE AC HS SUBQ (DCD) Dextrose/Water 25 ML ASDIR PRN IV (DCD) Device 1 SYRINGE Glucagon 1 MG ASDIR PRN IM (DCD) Ondansetron HCl 4 MG Q4H PRN PRN IV (DCD) Sodium Chloride 1,000 ML .Q6H40M IV (DCD) Physical Exam General appearance: alert, awake, oriented, no a cute distress, no respiratory distress Head/Eyes: atraumatic, normal conjunctiva/sclera , normocephalic, PERRLA ENT: moist mucosal membranes Neck: full range of motion, non-tender, supple/n o meningismus Cardiovascular: normal capillary refill, normal heart sounds, regular rate rhythm, no murmur, no rub Respiratory: aerating well, clear to auscultatio n, symmetric expansion, no distress Abdomen: guarding, non-tender, normal bowel soun ds, soft, no distention, no rebound Extremities: moves all, no clubbing, no cyanosis , no edema Musculoskeletal: normal inspection Neuro/AIRLINE COUNTER AGENT: alert, oriented X 3 Skin: dry, intact, no rash Psychiatry: anxious, normal judgment/insight Results Findings/Data: Laboratory Tests 06/17 06/17 06/16 06/16 0845 0524 2024 1610 Chemistry Sodium (136 - 145 mmol/L) 138 Potassium (3.5 - 5.1 mmol/L) 3.5 Chloride (98 - 107 mmol/L) 106 Carbon Dioxide (21 - 32 mmol/L) 24 BUN (7 - 18 mg/dL) 11 Creatinine (0.67 - 1.17 mg/dL) 0.90 Estimated GFR (MDRD) (>=60) > 60.00 Glucose (70 - 100 mg/dL) 221 H POC Glucose (70 - 105 mg/dL) 220 H 117 H 163 H Calcium (8.5 - 10.1 mg/dL) 8.0 L Phosphorus (2.5 - 4.9 mg/dL) 1.8 L Laboratory Tests 06/17 0524 Hematology WBC (4.5 - 11.0 X10(3)) 7.5 RBC (4.3 - 5.9 X10(6)) 3.83 L Hgb (13.5 - 18.0 g/dL) 11.9 L Hct (42.0 - 52.0 %) 34.0 L MCV (78 - 100 fl) 88.8 MCH (26.0 - 34.0 pg) 31.1 MCHC (30.0 - 37.0 g/dl) 35.0 RDW (11.5 - 14.5 %) 11.9 Plt Count (150 - 350 X10(3)) 282 MPV (8.7 - 11.4 fl) 9.9 Neut % (Auto) (36.0 - 66.0 %) 66.1 H Lymph % (Auto) (16 - 50 %) 25.8 Dixie % (Auto) (0.0 - 13.0 %) 6.9 Eos % (Auto) (0.0 - 4.5 %) 0.5 Baso % (Auto) (0.0 - 1.5 %) 0.3 Immature Gran # (Auto) (0.00 - 0.03 X10(3)uL) 0 .03 Absolute Neuts (auto) (1.7 - 7.7 X10(3)) 5.0 Absolute Lymphs (auto) (0.7 - 4.0 X10(3)) 1.9 Absolute Monos (auto) (0.0 - 0.89 X10(3)) 0.5 Absolute Eos (auto) (0.0 - 0.6 X10(3)) 0.0 Absolute Basos (auto) (0.0 - 0.2 X10(3)) 0.0 Absolute Nucleated RBC (0.0 - 0.1 K/mm3) 0.00 Immature Gran % (0.0 - 2.0 %) 0.4 Nucleated RBC % (0 - 0.2 %) 0.0 Diagnosis, Assessment Plan Free Text DxA P Notes Free Text DxA P Notes: ASSESSMENT Severe diffuse epigastric abdominal pain Diabetes mellitus Diabetic gastroparesis with gastric pacemaker Chronic abdominal pain Disabled status PLAN *Okay for discharge today as per discussion with patient and Dr. Berry. Patient to [facility] with [facility] for continued management of his diabetic gastroparesis and evaluation of the gastric pacemaker. Work-up in the hospital was unremarkable with negative CT of the scan. Patient would probably benefit from [employer] which wa s discussed with patient. *Discharge medications reconciled. *Reviewed patient's labs, diagnostics and medica l diagnosis with patient and family. All questions answered. *Patient to follow-up with PCP in 1 to 2 weeks f or continuation of care. *Patient to follow-up with consultants as schedu led. Plan of care discussed with the patient and staf f nurse. All questions answered. Patient seen by, assessed by , chart reviewed by and plan of care discussed with Dr. Josh Berry. See chart for further orders. Discharge planning: Home today at 1510 RPT #:[id number] END OF REPORT 2019-06-17 15:07:00-00:00 [facility] Hospitalist Progress Note REPORT#:[id number] REPORT STATUS: Signed DATE:06/17/19 TIME: 1507 PATIENT: RADHA CARPENTER UNIT #: [id number] [facility] AGE: 38 SEX: M ATTEND: Josh Gilliland Ba ADM AUTHOR: Sandra Torres * ALL edits or amendments must be made on the [employer]/computer document * Sandra Torres 06/17/19 1507: Subjective Chief Complaint: Last 24 hours: Patient alert and oriented on room air no acute distress. He has been reporting improved abdominal pain. Seen by Dr. Berry last night with orders for discharge today. Review of Systems GI: Reports: abdominal pain. Denies: constipation. : Denies: dysuria. All systems rev neg: except as marked Objective General VS/I O: Vital Signs: Date Time Temp Pulse Resp B/P B/P Pulse O2 O2 F low FiO2 Mean Ox Delivery Rate 06/17 0552 36.7 109 18 123/71 88.4 95 Room air 06/16 2300 36.6 103 19 165/104 124.1 94 Room ai r 06/16 1844 36.4 98 18 146/88 107.4 96 Room air 06/16 1521 36.6 106 19 133/78 96.3 94 Room air 24 hour I O ending at 0700: 06/17 0700 06/16 1900 Intake Total 1650.00 1800.00 Output Total Balance 1650.00 1800.00 Intake, IV 1650.00 1800.00 Patient Weight Weight (lb): Weight (oz): Weight (kg): 78.600 Medications: Active Meds + DC'd Last 24 Hrs Acetaminophen 650 MG Q6H PRN PRN PO (DCD) Dicyclomine HCl 10 MG Q6H PRN PRN PO (DCD) Hydralazine HCl 10 MG Q6H PRN PRN IV (DCD) Magnesium Sulfate 50 ML ASDIR IV (DCD) Potassium Chloride 20 MEQ ASDIR PRN PO (DCD) Potassium Chloride 20 MEQ Q2H PRN PRN PO (DCD) Potassium Chloride 100 ML Q1H PRN PRN IV (DCD) Potassium Chloride 100 ML Q1H PRN PRN IV (DCD) Potassium Chloride 100 ML Q2H PRN PRN IV (DCD) Erythromycin 250 MG Q8HR PO (DCD) Hydromorphone HCl 1 MG Q4H PRN PRN IV (DCD) Lactulose 30 ML BID PRN PRN PO (DCD) Iopamidol 100 ML ONCE PRN IV (DCD) Metoclopramide HCl 10 MG Q8HR IV (DCD) Diphenhydramine HCl 50 MG Q8H IV (DCD) Insulin Human Regular SLIDING SCALE AC HS SUBQ (DCD) Dextrose/Water 25 ML ASDIR PRN IV (DCD) Device 1 SYRINGE Glucagon 1 MG ASDIR PRN IM (DCD) Ondansetron HCl 4 MG Q4H PRN PRN IV (DCD) Sodium Chloride 1,000 ML .Q6H40M IV (DCD) Physical Exam General appearance: alert, awake, oriented, no a cute distress, no respiratory distress Head/Eyes: atraumatic, normal conjunctiva/sclera , normocephalic, PERRLA ENT: moist mucosal membranes Neck: full range of motion, non-tender, supple/n o meningismus Cardiovascular: normal capillary refill, normal heart sounds, regular rate rhythm, no murmur, no rub Respiratory: aerating well, clear to auscultatio n, symmetric expansion, no distress Abdomen: guarding, non-tender, normal bowel soun ds, soft, no distention, no rebound Extremities: moves all, no clubbing, no cyanosis , no edema Musculoskeletal: normal inspection Neuro/AIRLINE COUNTER AGENT: alert, oriented X 3 Skin: dry, intact, no rash Psychiatry: anxious, normal judgment/insight Results Findings/Data: Laboratory Tests 06/17 06/17 06/16 06/16 0845 0524 2023 1610 Chemistry Sodium (136 - 145 mmol/L) 138 Potassium (3.5 - 5.1 mmol/L) 3.5 Chloride (98 - 107 mmol/L) 106 Carbon Dioxide (21 - 32 mmol/L) 24 BUN (7 - 18 mg/dL) 11 Creatinine (0.67 - 1.17 mg/dL) 0.90 Estimated GFR (MDRD) (>=60) > 60.00 Glucose (70 - 100 mg/dL) 221 H POC Glucose (70 - 105 mg/dL) 220 H 117 H 163 H Calcium (8.5 - 10.1 mg/dL) 8.0 L Phosphorus (2.5 - 4.9 mg/dL) 1.8 L Laboratory Tests 06/17 0524 Hematology WBC (4.5 - 11.0 X10(3)) 7.5 RBC (4.3 - 5.9 X10(6)) 3.83 L Hgb (13.5 - 18.0 g/dL) 11.9 L Hct (42.0 - 52.0 %) 34.0 L MCV (78 - 100 fl) 88.8 MCH (26.0 - 34.0 pg) 31.1 MCHC (30.0 - 37.0 g/dl) 35.0 RDW (11.5 - 14.5 %) 11.9 Plt Count (150 - 350 X10(3)) 282 MPV (8.7 - 11.4 fl) 9.9 Neut % (Auto) (36.0 - 66.0 %) 66.1 H Lymph % (Auto) (16 - 50 %) 25.8 Dixie % (Auto) (0.0 - 13.0 %) 6.9 Eos % (Auto) (0.0 - 4.5 %) 0.5 Baso % (Auto) (0.0 - 1.5 %) 0.3 Immature Gran # (Auto) (0.00 - 0.03 X10(3)uL) 0 .03 Absolute Neuts (auto) (1.7 - 7.7 X10(3)) 5.0 Absolute Lymphs (auto) (0.7 - 4.0 X10(3)) 1.9 Absolute Monos (auto) (0.0 - 0.89 X10(3)) 0.5 Absolute Eos (auto) (0.0 - 0.6 X10(3)) 0.0 Absolute Basos (auto) (0.0 - 0.2 X10(3)) 0.0 Absolute Nucleated RBC (0.0 - 0.1 K/mm3) 0.00 Immature Gran % (0.0 - 2.0 %) 0.4 Nucleated RBC % (0 - 0.2 %) 0.0 Diagnosis, Assessment Plan Free Text DxA P Notes Free Text DxA P Notes: ASSESSMENT Severe diffuse epigastric abdominal pain Diabetes mellitus Diabetic gastroparesis with gastric pacemaker Chronic abdominal pain Disabled status PLAN *Okay for discharge today as per discussion with patient and Dr. Berry. Patient to follow[facility]up with [facility] for continued management of his diabetic gastroparesis and evaluation of the gastric pacemaker. Work-up in the hospital was unremarkable with negative CT of the scan. Patient would probably benefit from [employer] which wa s discussed with patient. *Discharge medications reconciled. *Reviewed patient's labs, diagnostics and medica l diagnosis with patient and family. All questions answered. *Patient to follow-up with PCP in 1 to 2 weeks f or continuation of care. *Patient to follow-up with consultants as schedu led. Plan of care discussed with the patient and rust f nurse. All questions answered. Patient seen by, assessed by , chart reviewed by and plan of care discussed with Dr. Josh Berry. See chart for further orders. Discharge planning: Home today Josh Berry 06/17/19 1910: Attestations Physician Attestation Agree w/findings plan: Agree with the findings and plan as documented Anika Torres [employer]-BC at 1510 RPT #:[id number] END OF REPORT 2019-06-17 15:07:00-00:00 [facility] Hospitalist Progress Note REPORT#:[id number] REPORT STATUS: Signed DATE:06/17/19 TIME: 150 PATIENT: RADHA CARPENTER UNIT #: [id number] ROOM/BED: [address] : [birth year] AGE: 38 SEX: M ATTEND: Josh Gilliland Ba ADM AUTHOR: Sandra Torres N * ALL edits or amendments must be made on the [employer]/computer document * Sandra Torres 06/17/19 1507: Subjective Chief Complaint: Last 24 hours: Patient alert and oriented on room air no acute distress. He has been reporting improved abdominal pain. Seen by Dr. Berry last night with orders for discharge today. Review of Systems GI: Reports: abdominal pain. Denies: constipation. : Denies: dysuria. All systems rev neg: except as marked Objective General VS/I O: Vital Signs: Date Time Temp Pulse Resp B/P B/P Pulse O2 O2 F low FiO2 Mean Ox Delivery Rate 06/17 0552 36.7 109 18 123/71 88.4 95 Room air 06/16 2300 36.6 103 19 165/104 124.1 94 Room ai r 06/16 1844 36.4 98 18 146/88 107.4 96 Room air 06/16 1521 36.6 106 19 133/78 96.3 94 Room air 24 hour I O ending at 0700: 06/17 0700 06/16 1900 Intake Total 1650.00 1800.00 Output Total Balance 1650.00 1800.00 Intake, IV 1650.00 1800.00 Patient Weight Weight (lb): Weight (oz): Weight (kg): 78.600 Medications: Active Meds + DC'd Last 24 Hrs Acetaminophen 650 MG Q6H PRN PRN PO (DCD) Dicyclomine HCl 10 MG Q6H PRN PRN PO (DCD) Hydralazine HCl 10 MG Q6H PRN PRN IV (DCD) Magnesium Sulfate 50 ML ASDIR IV (DCD) Potassium Chloride 20 MEQ ASDIR PRN PO (DCD) Potassium Chloride 20 MEQ Q2H PRN PRN PO (DCD) Potassium Chloride 100 ML Q1H PRN PRN IV (DCD) Potassium Chloride 100 ML Q1H PRN PRN IV (DCD) Potassium Chloride 100 ML Q2H PRN PRN IV (DCD) Erythromycin 250 MG Q8HR PO (DCD) Hydromorphone HCl 1 MG Q4H PRN PRN IV (DCD) Lactulose 30 ML BID PRN PRN PO (DCD) Iopamidol 100 ML ONCE PRN IV (DCD) Metoclopramide HCl 10 MG Q8HR IV (DCD) Diphenhydramine HCl 50 MG Q8H IV (DCD) Insulin Human Regular SLIDING SCALE AC HS SUBQ (DCD) Dextrose/Water 25 ML ASDIR PRN IV (DCD) Device 1 SYRINGE Glucagon 1 MG ASDIR PRN IM (DCD) Ondansetron HCl 4 MG Q4H PRN PRN IV (DCD) Sodium Chloride 1,000 ML .Q6H40M IV (DCD) Physical Exam General appearance: alert, awake, oriented, no a cute distress, no respiratory distress Head/Eyes: atraumatic, normal conjunctiva/sclera , normocephalic, PERRLA ENT: moist mucosal membranes Neck: full range of motion, non-tender, supple/n o meningismus Cardiovascular: normal capillary refill, normal heart sounds, regular rate rhythm, no murmur, no rub Respiratory: aerating well, clear to auscultatio n, symmetric expansion, no distress Abdomen: guarding, non-tender, normal bowel soun ds, soft, no distention, no rebound Extremities: moves all, no clubbing, no cyanosis , no edema Musculoskeletal: normal inspection Neuro/AIRLINE COUNTER AGENT: alert, oriented X 3 Skin: dry, intact, no rash Psychiatry: anxious, normal judgment/insight Results Findings/Data: Laboratory Tests 06/17 06/17 06/16 06/16 0845 0524 2024 1610 Chemistry Sodium (136 - 145 mmol/L) 138 Potassium (3.5 - 5.1 mmol/L) 3.5 Chloride (98 - 107 mmol/L) 106 Carbon Dioxide (21 - 32 mmol/L) 24 BUN (7 - 18 mg/dL) 11 Creatinine (0.67 - 1.17 mg/dL) 0.90 Estimated GFR (MDRD) (>=60) > 60.00 Glucose (70 - 100 mg/dL) 221 H POC Glucose (70 - 105 mg/dL) 220 H 117 H 163 H Calcium (8.5 - 10.1 mg/dL) 8.0 L Phosphorus (2.5 - 4.9 mg/dL) 1.8 L Laboratory Tests 06/17 0524 Hematology WBC (4.5 - 11.0 X10(3)) 7.5 RBC (4.3 - 5.9 X10(6)) 3.83 L Hgb (13.5 - 18.0 g/dL) 11.9 L Hct (42.0 - 52.0 %) 34.0 L MCV (78 - 100 fl) 88.8 MCH (26.0 - 34.0 pg) 31.1 MCHC (30.0 - 37.0 g/dl) 35.0 RDW (11.5 - 14.5 %) 11.9 Plt Count (150 - 350 X10(3)) 282 MPV (8.7 - 11.4 fl) 9.9 Neut % (Auto) (36.0 - 66.0 %) 66.1 H Lymph % (Auto) (16 - 50 %) 25.8 Dixie % (Auto) (0.0 - 13.0 %) 6.9 Eos % (Auto) (0.0 - 4.5 %) 0.5 Baso % (Auto) (0.0 - 1.5 %) 0.3 Immature Gran # (Auto) (0.00 - 0.03 X10(3)uL) 0 .03 Absolute Neuts (auto) (1.7 - 7.7 X10(3)) 5.0 Absolute Lymphs (auto) (0.7 - 4.0 X10(3)) 1.9 Absolute Monos (auto) (0.0 - 0.89 X10(3)) 0.5 Absolute Eos (auto) (0.0 - 0.6 X10(3)) 0.0 Absolute Basos (auto) (0.0 - 0.2 X10(3)) 0.0 Absolute Nucleated RBC (0.0 - 0.1 K/mm3) 0.00 Immature Gran % (0.0 - 2.0 %) 0.4 Nucleated RBC % (0 - 0.2 %) 0.0 Diagnosis, Assessment Plan Free Text DxA P Notes Free Text DxA P Notes: ASSESSMENT Severe diffuse epigastric abdominal pain Diabetes mellitus Diabetic gastroparesis with gastric pacemaker Chronic abdominal pain Disabled status PLAN *Okay for discharge today as per discussion with patient and Dr. Berry. Patient to follow-up with [facility] for continued management of his diabetic gastroparesis and evaluation of the gastric pacemaker. Work-up in the hospital was unremarkable with negative CT of the scan. Patient would probably benefit from [employer] which wa s discussed with patient. *Discharge medications reconciled. *Reviewed patient's labs, diagnostics and medica l diagnosis with patient and family. All questions answered. *Patient to follow-up with PCP in 1 to 2 weeks f or continuation of care. *Patient to follow-up with consultants as schedu led. Plan of care discussed with the patient and rust f nurse. All questions answered. Patient seen by, assessed by , chart reviewed by and plan of care discussed with Dr. Josh Berry. See chart for further orders. Discharge planning: Home today Josh Berry 06/17/19 1910: Attestations Physician Attestation Agree w/findings plan: Agree with the findings and plan as documented Anika Torres [employer] at 1510 at 0102 RPT #:[id number] END OF REPORT 2019-06-16 13:26:00-00:00 [facility] Gastroenterology Progress Note REPORT#:[id number] REPORT STATUS: Signed DATE:06/16/19 TIME: 1326 PATIENT: RADHA CARPENTER UNIT #: [id number] ROOM/BED: [facility] : 82 AGE: 38 SEX: M ATTEND: Josh Gilliland Ba ADM AUTHOR: Brian Carrera III, APN * ALL edits or amendments must be made on the el ectronic/computer document * Subjective Chief Complaint: Abdominal pain HPI: This is a 38 year old male that remains admitted to medical floor due to gastroparesis and abdominal pain. Labs and im aging reviewed with no abnormalities identified. His pain regimen has b een adjusted with subsequent minor improvment in his abdominal pain. Upon evaluation, Mr. Carpenter is lying in bed with complaints of generalized abdominal pain, he has recently received adminst ration of Dilaudid. No acute events reported overnight. D enies nausea, vomiting, diarrhea, or constipation at this time. Review of Systems Constitutional: Reports: generalized weakness. Denies: chills, f atigue, fever, lethargy, malaise, recent wt loss, other. Skin: Denies: abrasion, bruising, contusion, diaphores is, ecchymosis, itching, laceration, rash, swelling, other. Allergy/Immun: Denies: allergic reaction, anaphylaxis, hives, i tching, rhinorrhea, sneezing, other. Eyes: Denies: redness, discharge, visual loss/blurred, itching, diplopia, eye pain, photophobia, swelling, other. ENT: Denies: ear drainage, ear ringing, earache, hear ing loss, mouth pain, nasal congestion, nose bleeding, sinus problem, sore t hroat, throat pain, throat swelling, tongue pain, tongue swelling, toothach e, voice change, other. Respiratory: Denies: GAONA (dyspnea on exertion), hemoptysis, n on productive cough, parox nocturnal dyspnea, pleurisy, pleuritic pain, pneumonia, productive cough (sputum ), SOB, wheezing, other. Cardiovascular: Denies: chest pain, GAONA (dyspnea on exer tion), edema, orthopnea, palpitations, parox nocturnal dyspnea, other. GI: Reports: abdominal pain (Generalized ). Denies: anorexia, constipation, diarrhea, dysphagia, GERD, hematemesis, hematoch ezia, hiatal hernia, melena, nausea, rectal pain, vomiting, other. : Denies: dysuria, flank pain, frequency, hematuria, nocturia, penile discharge, penile lesion, testicular pa in, testicular swelling, urgency, urinary retention, other. Heme: Denies: adenopathy, bleeding, bruising, petechia e, other. Endocrine: Denies: cold intolerance, heat intolerance, poly dipsia, polyphagia, polyuria, weight gain, weight loss, other. Neuro: Denies: bladder dysfunction, bowel dysfunction, change in LOC, confusion, dizziness, focal weakness, gait problem, headach e, lightheaded, numbness, seizure, slurred speech, spinning sensation, syn cope, unable to speak, vision change, weakness, other. Psych: Denies: agitation, anxiety, auditory hallucinati on, change in mental status, confusion, delusional, depre ssion, homicidal ideation, hostile, insomnia, stress , suicidal ideation, visual hallucination, other . Objective Physical Exam VS/I O: Last Documented: Result Date Time Pulse Ox 95 06/16 612 B/P 154/101 06/16 612 B/P Mean 118.6 06/16 612 O2 Delivery Room air 06/16 612 Temp 97.9 06/16 612 Pulse 104 06/16 612 Resp 18 06/16 612 24 hour I O ending at 0700: 06/16 0700 06/15 1900 Intake Total 3300.00 Output Total 800 Balance 3300.00 -800 Intake, IV 3300.00 Number 1 Bowel Movements Output, Urine 800 Patient Weight Weight (lb): Weight (oz): Weight (kg): 78.600 Medications: Active Meds + DC'd Last 24 Hrs Acetaminophen 650 MG Q6H PRN PRN PO Dicyclomine HCl 10 MG Q6H PRN PRN PO Hydralazine HCl 10 MG Q6H PRN PRN IV Magnesium Sulfate 50 ML ASDIR IV (CKD) Potassium Chloride 20 MEQ ASDIR PRN PO Potassium Chloride 20 MEQ Q2H PRN PRN PO Potassium Chloride 100 ML Q1H PRN PRN IV Potassium Chloride 100 ML Q1H PRN PRN IV Potassium Chloride 100 ML Q2H PRN PRN IV Erythromycin 250 MG Q8HR PO Hydromorphone HCl 1 MG Q4H PRN PRN IV Lactulose 30 ML BID PRN PRN PO (CKD) Iopamidol 0 .STK-MED ONE .ROUTE (DCr) Iopamidol 100 ML ONCE PRN IV Metoclopramide HCl 10 MG Q8HR IV Diphenhydramine HCl 50 MG Q8H IV Insulin Human Regular SLIDING SCALE AC HS SUBQ Dextrose/Water 25 ML ASDIR PRN IV Device 1 SYRINGE Glucagon 1 MG ASDIR PRN IM Morphine Sulfate 4 MG Q4H PRN PRN IV (DC) Ondansetron HCl 4 MG Q4H PRN PRN IV Sodium Chloride 1,000 ML .Q6H40M IV General appearance: chronically ill appearing, a lert, awake HEENT: moist mucosal membranes, PERRLA Neck: full range of motion, non-tender Cardiovascular: normal heart sounds, normal S1/S 2, regular rate rhythm Respiratory: clear to auscul tation, equal breath sounds, symmetric expansion, no distress Abdomen: tenderness, normal bowel sounds, soft, no distention Genitourinary: no cid Extremities: moves all Musculoskeletal: decreased ROM Neuro/AIRLINE COUNTER AGENT: alert, oriented X 3 Skin: dry, intact Psychiatry: anxious Results Findings/Data: Laboratory Tests 06/16/19 0559: [Embedded Image Not Available] Laboratory Tests 06/16 06/16 06/16 06/15 06/15 1112 0705 0559 2101 1618 Chemistry Sodium (136 - 145 mmol/L) 138 Potassium (3.5 - 5.1 mmol/L) 3.8 Chloride (98 - 107 mmol/L) 104 Carbon Dioxide (21 - 32 mmol/L) 26 BUN (7 - 18 mg/dL) 10 Creatinine (0.67 - 1.17 mg/dL) 0.70 Estimated GFR (MDRD) (>=60) > 60.00 Glucose (70 - 100 mg/dL) 220 H POC Glucose (70 - 105 mg/dL) 171 H 198 H 123 H 171 H Calcium (8.5 - 10.1 mg/dL) 8.6 Phosphorus (2.5 - 4.9 mg/dL) 2.2 L Laboratory Tests 06/16 0559 Hematology WBC (4.5 - 11.0 X10(3)) 7.2 RBC (4.3 - 5.9 X10(6)) 4.06 L Hgb (13.5 - 18.0 g/dL) 12.5 L Hct (42.0 - 52.0 %) 36.6 L MCV (78 - 100 fl) 90.1 MCH (26.0 - 34.0 pg) 30.8 MCHC (30.0 - 37.0 g/dl) 34.2 RDW (11.5 - 14.5 %) 11.8 Plt Count (150 - 350 X10(3)) 272 MPV (8.7 - 11.4 fl) 9.9 Neut % (Auto) (36.0 - 66.0 %) 75.2 H Lymph % (Auto) (16 - 50 %) 18.4 Dixie % (Auto) (0.0 - 13.0 %) 5.1 Eos % (Auto) (0.0 - 4.5 %) 0.6 Baso % (Auto) (0.0 - 1.5 %) 0.3 Immature Gran # (Auto) (0.00 - 0.03 X10(3)uL) 0 .03 Absolute Neuts (auto) (1.7 - 7.7 X10(3)) 5.4 Absolute Lymphs (auto) (0.7 - 4.0 X10(3)) 1.3 Absolute Monos (auto) (0.0 - 0.89 X10(3)) 0.4 Absolute Eos (auto) (0.0 - 0.6 X10(3)) 0.0 Absolute Basos (auto) (0.0 - 0.2 X10(3)) 0.0 Absolute Nucleated RBC (0.0 - 0.1 K/mm3) 0.00 Immature Gran % (0.0 - 2.0 %) 0.4 Nucleated RBC % (0 - 0.2 %) 0.0 Laboratory Tests 06/15 1343 Urines Ur Random Creatinine (mg/dL) 37.0 Radiology Data: Recent Impressions: CAT SCAN - CT ABD PELVIS W/CONT 06/15 1558 Report Impression - Status: SIGNED Entered: 06/15/2019 3555 IMPRESSION: No acute findings within abdomen nor pelvis. Bibasilar dependent changes, left greater than r ight with tiny left pleural effusion. Fairly extensive atherosclerotic calcifications. Impression By: Rubén Cortes Diagnosis, Assessment Plan Free Text A P: A 38 year old male that remains admitte d to medical floor due to gastroparesis and abdominal pain. Gastroparesis/Abd pain -Labs and imaging reviewed with no abnormalities identified -Continue maximizing pain regimen -Continue with antiemetic, laxatives -No further recommendations at this time Rounds performed with nursing staff Will sign off, please call with questions Electronically Signed by Brian Carrera III, APN on 0 06/16/19 at 1335 RPT #:[id number] END OF REPORT 2019-06-16 13:26:00-00:00 [facility] Gastroenterology Progress Note REPORT#:[id number] REPORT STATUS: Signed DATE:06/16/19 TIME: 1326 PATIENT: RADHA CARPENTER UNIT #: [id number] [facility]GE: 38 SEX: M ATTEND: Josh Gilliland Ba ADM AUTHOR: Brian Carrera III, APN * ALL edits or amendments must be made on the [employer]/computer document * Subjective Chief Complaint: Abdominal pain HPI: This is a 38 year old male that remains admitted to medical floor due to gastroparesis and abdominal pain. Labs and im aging reviewed with no abnormalities identified. His pain regimen has b een adjusted with subsequent minor improvment in his abdominal pain. Upon evaluation, Mr. Carpenter is lying in bed with complaints of generalized abdominal pain, he has recently received adminst ration of Dilaudid. No acute events reported overnight. D enies nausea, vomiting, diarrhea, or constipation at this time. Review of Systems Constitutional: Reports: generalized weakness. Denies: chills, f atigue, fever, lethargy, malaise, recent wt loss, other. Skin: Denies: abrasion, bruising, contusion, diaphores is, ecchymosis, itching, laceration, rash, swelling, other. Allergy/Immun: Denies: allergic reaction, anaphylaxis, hives, i tching, rhinorrhea, sneezing, other. Eyes: Denies: redness, discharge, visual loss/blurred, itching, diplopia, eye pain, photophobia, swelling, other. ENT: Denies: ear drainage, ear ringing, earache, hear ing loss, mouth pain, nasal congestion, nose bleeding, sinus problem, sore t hroat, throat pain, throat swelling, tongue pain, tongue swelling, toothach e, voice change, other. Respiratory: Denies: GAONA (dyspnea on exertion), hemoptysis, n on productive cough, parox nocturnal dyspnea, pleurisy, pleuritic pain, pneumonia, productive cough (sputum ), SOB, wheezing, other. Cardiovascular: Denies: chest pain, GAONA (dyspnea on exer tion), edema, orthopnea, palpitations, parox nocturnal dyspnea, other. GI: Reports: abdominal pain (Generalized ). Denies: anorexia, constipation, diarrhea, dysphagia, GERD, hematemesis, hematoch ezia, hiatal hernia, melena, nausea, rectal pain, vomiting, other. : Denies: dysuria, flank pain, frequency, hematuria, nocturia, penile discharge, penile lesion, testicular pa in, testicular swelling, urgency, urinary retention, other. Heme: Denies: adenopathy, bleeding, bruising, petechia e, other. Endocrine: Denies: cold intolerance, heat intolerance, poly dipsia, polyphagia, polyuria, weight gain, weight loss, other. Neuro: Denies: bladder dysfunction, bowel dysfunction, change in LOC, confusion, dizziness, focal weakness, gait problem, headach e, lightheaded, numbness, seizure, slurred speech, spinning sensation, syn cope, unable to speak, vision change, weakness, other. Psych: Denies: agitation, anxiety, auditory hallucinati on, change in mental status, confusion, delusional, depre ssion, homicidal ideation, hostile, insomnia, stress , suicidal ideation, visual hallucination, other . Objective Physical Exam VS/I O: Last Documented: Result Date Time Pulse Ox 95 06/16 612 B/P 154/101 06/16 612 B/P Mean 118.6 06/16 612 O2 Delivery Room air 06/16 612 Temp 97.9 06/16 612 Pulse 104 06/16 612 Resp 18 06/16 612 24 hour I O ending at 0700: 06/16 0700 06/15 1900 Intake Total 3300.00 Output Total 800 Balance 3300.00 -800 Intake, IV 3300.00 Number 1 Bowel Movements Output, Urine 800 Patient Weight Weight (lb): Weight (oz): Weight (kg): 78.600 Medications: Active Meds + DC'd Last 24 Hrs Acetaminophen 650 MG Q6H PRN PRN PO Dicyclomine HCl 10 MG Q6H PRN PRN PO Hydralazine HCl 10 MG Q6H PRN PRN IV Magnesium Sulfate 50 ML ASDIR IV (CKD) Potassium Chloride 20 MEQ ASDIR PRN PO Potassium Chloride 20 MEQ Q2H PRN PRN PO Potassium Chloride 100 ML Q1H PRN PRN IV Potassium Chloride 100 ML Q1H PRN PRN IV Potassium Chloride 100 ML Q2H PRN PRN IV Erythromycin 250 MG Q8HR PO Hydromorphone HCl 1 MG Q4H PRN PRN IV Lactulose 30 ML BID PRN PRN PO (CKD) Iopamidol 0 .STK-MED ONE .ROUTE (DCr) Iopamidol 100 ML ONCE PRN IV Metoclopramide HCl 10 MG Q8HR IV Diphenhydramine HCl 50 MG Q8H IV Insulin Human Regular SLIDING SCALE AC HS SUBQ Dextrose/Water 25 ML ASDIR PRN IV Device 1 SYRINGE Glucagon 1 MG ASDIR PRN IM Morphine Sulfate 4 MG Q4H PRN PRN IV (DC) Ondansetron HCl 4 MG Q4H PRN PRN IV Sodium Chloride 1,000 ML .Q6H40M IV General appearance: chronically ill appearing, a lert, awake HEENT: moist mucosal membranes, PERRLA Neck: full range of motion, non-tender Cardiovascular: normal heart sounds, normal S1/S 2, regular rate rhythm Respiratory: clear to auscul tation, equal breath sounds, symmetric expansion, no distress Abdomen: tenderness, normal bowel sounds, soft, no distention Genitourinary: no cid Extremities: moves all Musculoskeletal: decreased ROM Neuro/AIRLINE COUNTER AGENT: alert, oriented X 3 Skin: dry, intact Psychiatry: anxious Results Findings/Data: Laboratory Tests 06/16/19 0559: [Embedded Image Not Available] Laboratory Tests 06/16 06/16 06/16 06/15 06/15 1112 0705 0559 2101 1618 Chemistry Sodium (136 - 145 mmol/L) 138 Potassium (3.5 - 5.1 mmol/L) 3.8 Chloride (98 - 107 mmol/L) 104 Carbon Dioxide (21 - 32 mmol/L) 26 BUN (7 - 18 mg/dL) 10 Creatinine (0.67 - 1.17 mg/dL) 0.70 Estimated GFR (MDRD) (>=60) > 60.00 Glucose (70 - 100 mg/dL) 220 H POC Glucose (70 - 105 mg/dL) 171 H 198 H 123 H 171 H Calcium (8.5 - 10.1 mg/dL) 8.6 Phosphorus (2.5 - 4.9 mg/dL) 2.2 L Laboratory Tests 06/16 0559 Hematology WBC (4.5 - 11.0 X10(3)) 7.2 RBC (4.3 - 5.9 X10(6)) 4.06 L Hgb (13.5 - 18.0 g/dL) 12.5 L Hct (42.0 - 52.0 %) 36.6 L MCV (78 - 100 fl) 90.1 MCH (26.0 - 34.0 pg) 30.8 MCHC (30.0 - 37.0 g/dl) 34.2 RDW (11.5 - 14.5 %) 11.8 Plt Count (150 - 350 X10(3)) 272 MPV (8.7 - 11.4 fl) 9.9 Neut % (Auto) (36.0 - 66.0 %) 75.2 H Lymph % (Auto) (16 - 50 %) 18.4 Dixie % (Auto) (0.0 - 13.0 %) 5.1 Eos % (Auto) (0.0 - 4.5 %) 0.6 Baso % (Auto) (0.0 - 1.5 %) 0.3 Immature Gran # (Auto) (0.00 - 0.03 X10(3)uL) 0 .03 Absolute Neuts (auto) (1.7 - 7.7 X10(3)) 5.4 Absolute Lymphs (auto) (0.7 - 4.0 X10(3)) 1.3 Absolute Monos (auto) (0.0 - 0.89 X10(3)) 0.4 Absolute Eos (auto) (0.0 - 0.6 X10(3)) 0.0 Absolute Basos (auto) (0.0 - 0.2 X10(3)) 0.0 Absolute Nucleated RBC (0.0 - 0.1 K/mm3) 0.00 Immature Gran % (0.0 - 2.0 %) 0.4 Nucleated RBC % (0 - 0.2 %) 0.0 Laboratory Tests 06/15 1343 Urines Ur Random Creatinine (mg/dL) 37.0 Radiology Data: Recent Impressions: CAT SCAN - CT ABD PELVIS W/CONT 06/15 1558 Report Impression - Status: SIGNED Entered: 06/15/2019 1625 IMPRESSION: No acute findings within abdomen nor pelvis. Bibasilar dependent changes, left greater than r ight with tiny left pleural effusion. Fairly extensive atherosclerotic calcifications. Impression By: Rubén Cortes Diagnosis, Assessment Plan Free Text A P: A 38 year old male that remains admitte d to medical floor due to gastroparesis and abdominal pain. Gastroparesis/Abd pain -Labs and imaging reviewed with no abnormalities identified -Continue maximizing pain regimen -Continue with antiemetic, laxatives -No further recommendations at this time Rounds performed with nursing staff Will sign off, please call with questions Electronically Signed by Brian Carrera III, APN on 0 06/16/19 at 1335 at 1337 RPT #:[id number] END OF REPORT 2019-06-16 13:09:00-00:00 [facility] Hospitalist Progress Note REPORT#:[id number] REPORT STATUS: Signed DATE:06/16/19 TIME: 1309 PATIENT: RADHA CARPENTER UNIT #: [id number] ROOM/BED: [address] : 82 AGE: 38 SEX: M ATTEND: Josh Gilliland Ba ADM AUTHOR: Sandra Torres * ALL edits or amendments must be made on the [employer]/computer document * Subjective Chief Complaint: Last 24 hours: Patient continues to verbalize he has abdominal pain but was found lying in bed comfortable and drows y after administration of Dilaudid. He continues on Reglan and erythromycin. Review of Systems Respiratory: Denies: GAONA (dyspnea on exertion), SOB. Cardiovascular: Reports: palpitations. Denies: chest pain, GAONA ( dyspnea on exertion). GI: Reports: abdominal pain. Denies: constipation. : Denies: dysuria. Psych: Reports: anxiety, stress. All systems rev neg: except as marked Objective General VS/I O: Vital Signs: Date Time Temp Pulse Resp B/P B/P Pulse O2 O2 F low FiO2 Mean Ox Delivery Rate 06/16 0613 36.6 104 18 154/101 118.6 95 Room r 06/15 2252 36.6 103 18 154/103 120.0 95 Room r 06/15 1832 36.8 110 18 144/94 110.6 97 06/15 1417 36.9 113 18 137/82 100.6 95 Room air 24 hour I O ending at 0700: 06/16 0700 06/15 1900 Intake Total 3300.00 Output Total 800 Balance 3300.00 -800 Intake, IV 3300.00 Number 1 Bowel Movements Output, Urine 800 Patient Weight Weight (lb): Weight (oz): Weight (kg): 78.600 Medications: Active Meds + DC'd Last 24 Hrs Acetaminophen 650 MG Q6H PRN PRN PO Dicyclomine HCl 10 MG Q6H PRN PRN PO Hydralazine HCl 10 MG Q6H PRN PRN IV Magnesium Sulfate 50 ML ASDIR IV (CKD) Potassium Chloride 20 MEQ ASDIR PRN PO Potassium Chloride 20 MEQ Q2H PRN PRN PO Potassium Chloride 100 ML Q1H PRN PRN IV Potassium Chloride 100 ML Q1H PRN PRN IV Potassium Chloride 100 ML Q2H PRN PRN IV Erythromycin 250 MG Q8HR PO Hydromorphone HCl 1 MG Q4H PRN PRN IV Lactulose 30 ML BID PRN PRN PO (CKD) Iopamidol 0 .STK-MED ONE .ROUTE (DCr) Iopamidol 100 ML ONCE PRN IV Metoclopramide HCl 10 MG Q8HR IV Diphenhydramine HCl 50 MG Q8H IV Insulin Human Regular SLIDING SCALE AC HS SUBQ Dextrose/Water 25 ML ASDIR PRN IV Device 1 SYRINGE Glucagon 1 MG ASDIR PRN IM Morphine Sulfate 4 MG Q4H PRN PRN IV (DC) Ondansetron HCl 4 MG Q4H PRN PRN IV Sodium Chloride 1,000 ML .Q6H40M IV Physical Exam General appearance: alert, awake, oriented, no a cute distress, no respiratory distress Head/Eyes: atraumatic, normal conjunctiva/sclera , normocephalic, PERRLA ENT: moist mucosal membranes Neck: full range of motion, non-tender, supple/n o meningismus Cardiovascular: normal capillary refill, normal heart sounds, regular rate rhythm, no murmur, no rub Respiratory: aerating well, clear to auscultatio n, symmetric expansion, no distress Abdomen: guarding, non-tender, normal bowel soun ds, soft, no distention, no rebound Extremities: moves all, no clubbing, no cyanosis , no edema Musculoskeletal: normal inspection Neuro/AIRLINE COUNTER AGENT: alert, oriented X 3 Skin: dry, intact, no rash Psychiatry: anxious, normal judgment/insight Results Findings/Data: Laboratory Tests 06/16 1610 1112 0705 0559 Chemistry Sodium (136 - 145 mmol/L) 138 Potassium (3.5 - 5.1 mmol/L) 3.8 Chloride (98 - 107 mmol/L) 104 Carbon Dioxide (21 - 32 mmol/L) 26 BUN (7 - 18 mg/dL) 10 Creatinine (0.67 - 1.17 mg/dL) 0.70 Estimated GFR (MDRD) (>=60) > 60.00 Glucose (70 - 100 mg/dL) 220 H POC Glucose (70 - 105 mg/dL) 117 H 163 H 171 H 198 H Calcium (8.5 - 10.1 mg/dL) 8.6 Phosphorus (2.5 - 4.9 mg/dL) 2.2 L Laboratory Tests 06/16 0559 Hematology WBC (4.5 - 11.0 X10(3)) 7.2 RBC (4.3 - 5.9 X10(6)) 4.06 L Hgb (13.5 - 18.0 g/dL) 12.5 L Hct (42.0 - 52.0 %) 36.6 L MCV (78 - 100 fl) 90.1 MCH (26.0 - 34.0 pg) 30.8 MCHC (30.0 - 37.0 g/dl) 34.2 RDW (11.5 - 14.5 %) 11.8 Plt Count (150 - 350 X10(3)) 272 MPV (8.7 - 11.4 fl) 9.9 Neut % (Auto) (36.0 - 66.0 %) 75.2 H Lymph % (Auto) (16 - 50 %) 18.4 Dixie % (Auto) (0.0 - 13.0 %) 5.1 Eos % (Auto) (0.0 - 4.5 %) 0.6 Baso % (Auto) (0.0 - 1.5 %) 0.3 Immature Gran # (Auto) (0.00 - 0.03 X10(3)uL) 0 .03 Absolute Neuts (auto) (1.7 - 7.7 X10(3)) 5.4 Absolute Lymphs (auto) (0.7 - 4.0 X10(3)) 1.3 Absolute Monos (auto) (0.0 - 0.89 X10(3)) 0.4 Absolute Eos (auto) (0.0 - 0.6 X10(3)) 0.0 Absolute Basos (auto) (0.0 - 0.2 X10(3)) 0.0 Absolute Nucleated RBC (0.0 - 0.1 K/mm3) 0.00 Immature Gran % (0.0 - 2.0 %) 0.4 Nucleated RBC % (0 - 0.2 %) 0.0 Treatment Prophylaxis Treatment Prophylaxis Urine color: yellow Oxygen: room air Diagnosis, Assessment Plan Problem List/A P: 1. Gastroparesis 2. Epigastric pain 3. Uncontrolled diabetes mellitus 4. Gastroparesis diabeticorum 5. Chronic pain 6. Hyperglycemia 7. Poorly controlled diabetes mellitus 8. Nausea vomiting 9. DM type 1 (diabetes mellitus, type 1) 10. Abdominal pain Free Text DxA P Notes Free Text DxA P Notes: ASSESSMENT Severe diffuse epigastric abdominal pain Diabetes mellitus Diabetic gastroparesis with gastric pacemaker Chronic abdominal pain Disabled status PLAN *Continue on Dilaudid. Patient continues with se jumana diffuse epigastric abdominal pain out of proportion to diagnosis. C T abdomen pelvis negative. *Patient with diabetic gastr oparesis with gastric pacemaker on Reglan. Continue on erythromycin reglan due to persistent diffuse epigastric abdominal pain. *Patient may benefit from pain management specia list post discharge. *Continue on as needed antie metics, analgesics, antihypertensives and laxatives as indicated *Continue current medical management. *Labs in a.m.: CBC and BMP *Electrolytes to be replaced as indicated. *DVT prophylaxis addressed. *We will continue to follow closely and reevalua te for adjustment in medical therapy as indicated. Plan of care discussed with the patient and frank f nurse. All questions answered. Patient seen by, assessed by , chart reviewed by and plan of care discussed with Dr. Josh Berry. See chart for further orders. Discharge planning: Home once pain is better con trolled. at 2248 RPT #:[id number] END OF REPORT 2019-06-16 13:09:00-00:00 [facility] Hospitalist Progress Note REPORT#:[id number] REPORT STATUS: Signed DATE:06/16/19 TIME: 1309 PATIENT: RADHA CARPENTER UNIT #: [id number] ROOM[facility]BED: [facility] : 84 AGE: 38 SEX: M ATTEND: Josh Gilliland Ba ADM AUTHOR: Sandra Torres * ALL edits or amendments must be made on the [employer]/computer document * Sandra Torres 06/16/19 1309: Subjective Chief Complaint: Last 24 hours: Patient continues to verbalize he has abdominal pain but was found lying in bed comfortable and drows y after administration of Dilaudid. He continues on Reglan and erythromycin. Review of Systems Respiratory: Denies: GAONA (dyspnea on exertion), SOB. Cardiovascular: Reports: palpitations. Denies: chest pain, GAONA ( dyspnea on exertion). GI: Reports: abdominal pain. Denies: constipation. : Denies: dysuria. Psych: Reports: anxiety, stress. All systems rev neg: except as marked Objective General VS/I O: Vital Signs: Date Time Temp Pulse Resp B/P B/P Pulse O2 O2 F low FiO2 Mean Ox Delivery Rate 06/16 0613 36.6 104 18 154/101 118.6 95 Room ai r 06/15 2252 36.6 103 18 154/103 120.0 95 Room ai r 06/15 1832 36.8 110 18 144/94 110.6 97 06/15 1417 36.9 113 18 137/82 100.6 95 Room air 24 hour I O ending at 0700: 06/16 0700 06/15 1900 Intake Total 3300.00 Output Total 800 Balance 3300.00 -800 Intake, IV 3300.00 Number 1 Bowel Movements Output, Urine 800 Patient Weight Weight (lb): Weight (oz): Weight (kg): 78.600 Medications: Active Meds + DC'd Last 24 Hrs Acetaminophen 650 MG Q6H PRN PRN PO Dicyclomine HCl 10 MG Q6H PRN PRN PO Hydralazine HCl 10 MG Q6H PRN PRN IV Magnesium Sulfate 50 ML ASDIR IV (CKD) Potassium Chloride 20 MEQ ASDIR PRN PO Potassium Chloride 20 MEQ Q2H PRN PRN PO Potassium Chloride 100 ML Q1H PRN PRN IV Potassium Chloride 100 ML Q1H PRN PRN IV Potassium Chloride 100 ML Q2H PRN PRN IV Erythromycin 250 MG Q8HR PO Hydromorphone HCl 1 MG Q4H PRN PRN IV Lactulose 30 ML BID PRN PRN PO (CKD) Iopamidol 0 .STK-MED ONE .ROUTE (DCr) Iopamidol 100 ML ONCE PRN IV Metoclopramide HCl 10 MG Q8HR IV Diphenhydramine HCl 50 MG Q8H IV Insulin Human Regular SLIDING SCALE AC HS SUBQ Dextrose/Water 25 ML ASDIR PRN IV Device 1 SYRINGE Glucagon 1 MG ASDIR PRN IM Morphine Sulfate 4 MG Q4H PRN PRN IV (DC) Ondansetron HCl 4 MG Q4H PRN PRN IV Sodium Chloride 1,000 ML .Q6H40M IV Physical Exam General appearance: alert, awake, oriented, no a cute distress, no respiratory distress Head/Eyes: atraumatic, normal conjunctiva/sclera , normocephalic, PERRLA ENT: moist mucosal membranes Neck: full range of motion, non-tender, supple/n o meningismus Cardiovascular: normal capillary refill, normal heart sounds, regular rate rhythm, no murmur, no rub Respiratory: aerating well, clear to auscultatio n, symmetric expansion, no distress Abdomen: guarding, non-tender, normal bowel soun ds, soft, no distention, no rebound Extremities: moves all, no clubbing, no cyanosis , no edema Musculoskeletal: normal inspection Neuro/AIRLINE COUNTER AGENT: alert, oriented X 3 Skin: dry, intact, no rash Psychiatry: anxious, normal judgment/insight Results Findings/Data: Laboratory Tests 06/16 1610 1112 0705 0559 Chemistry Sodium (136 - 145 mmol/L) 138 Potassium (3.5 - 5.1 mmol/L) 3.8 Chloride (98 - 107 mmol/L) 104 Carbon Dioxide (21 - 32 mmol/L) 26 BUN (7 - 18 mg/dL) 10 Creatinine (0.67 - 1.17 mg/dL) 0.70 Estimated GFR (MDRD) (>=60) > 60.00 Glucose (70 - 100 mg/dL) 220 H POC Glucose (70 - 105 mg/dL) 117 H 163 H 171 H 198 H Calcium (8.5 - 10.1 mg/dL) 8.6 Phosphorus (2.5 - 4.9 mg/dL) 2.2 L Laboratory Tests 06/16 0559 Hematology WBC (4.5 - 11.0 X10(3)) 7.2 RBC (4.3 - 5.9 X10(6)) 4.06 L Hgb (13.5 - 18.0 g/dL) 12.5 L Hct (42.0 - 52.0 %) 36.6 L MCV (78 - 100 fl) 90.1 MCH (26.0 - 34.0 pg) 30.8 MCHC (30.0 - 37.0 g/dl) 34.2 RDW (11.5 - 14.5 %) 11.8 Plt Count (150 - 350 X10(3)) 272 MPV (8.7 - 11.4 fl) 9.9 Neut % (Auto) (36.0 - 66.0 %) 75.2 H Lymph % (Auto) (16 - 50 %) 18.4 Dixie % (Auto) (0.0 - 13.0 %) 5.1 Eos % (Auto) (0.0 - 4.5 %) 0.6 Baso % (Auto) (0.0 - 1.5 %) 0.3 Immature Gran # (Auto) (0.00 - 0.03 X10(3)uL) 0 .03 Absolute Neuts (auto) (1.7 - 7.7 X10(3)) 5.4 Absolute Lymphs (auto) (0.7 - 4.0 X10(3)) 1.3 Absolute Monos (auto) (0.0 - 0.89 X10(3)) 0.4 Absolute Eos (auto) (0.0 - 0.6 X10(3)) 0.0 Absolute Basos (auto) (0.0 - 0.2 X10(3)) 0.0 Absolute Nucleated RBC (0.0 - 0.1 K/mm3) 0.00 Immature Gran % (0.0 - 2.0 %) 0.4 Nucleated RBC % (0 - 0.2 %) 0.0 Treatment Prophylaxis Treatment Prophylaxis Urine color: yellow Oxygen: room air Diagnosis, Assessment Plan Problem List/A P: 1. Gastroparesis 2. Epigastric pain 3. Uncontrolled diabetes mellitus 4. Gastroparesis diabeticorum 5. Chronic pain 6. Hyperglycemia 7. Poorly controlled diabetes mellitus 8. Nausea vomiting 9. DM type 1 (diabetes mellitus, type 1) 10. Abdominal pain Free Text DxA P Notes Free Text DxA P Notes: ASSESSMENT Severe diffuse epigastric abdominal pain Diabetes mellitus Diabetic gastroparesis with gastric pacemaker Chronic abdominal pain Disabled status PLAN *Continue on Dilaudid. Patient continues with se jumana diffuse epigastric abdominal pain out of proportion to diagnosis. C T abdomen pelvis negative. *Patient with diabetic gastr oparesis with gastric pacemaker on Reglan. Continue on erythromycin reglan due to persistent diffuse epigastric abdominal pain. *Patient may benefit from pain management specia list post discharge. *Continue on as needed antie metics, analgesics, antihypertensives and laxatives as indicated *Continue current medical management. *Labs in a.m.: CBC and BMP *Electrolytes to be replaced as indicated. *DVT prophylaxis addressed. *We will continue to follow closely and reevalua te for adjustment in medical therapy as indicated. Plan of care discussed with the patient and [facility] nurse. All questions answered. Patient seen by, assessed by , chart reviewed by and plan of care discussed with Dr. Josh Berry. See chart for further orders. Discharge planning: Home once pain is better con trolled. Josh Berry 06/19/19 1031: Attestations Physician Attestation Agree w/findings plan: Agree with the findings and plan as documented Anika Torres [employer] at 2248 RPT #:[id number] END OF REPORT 2019-06-16 13:09:00-00:00 [facility] Hospitalist Progress Note REPORT#:[id number] REPORT STATUS: Signed DATE:06/16/19 TIME: 1309 PATIENT: RADHA CARPENTER UNIT #: [id number] ROOM/BED: [address] : [birth year] AGE: 38 SEX: M ATTEND: Jamal valle,Josh Salomon ADM AUTHOR: Sandra Torres * ALL edits or amendments must be made on the [employer]/computer document * Sandra Torres 06/16/19 1309: Subjective Chief Complaint: Last 24 hours: Patient continues to verbalize he has abdominal pain but was found lying in bed comfortable and drows y after administration of Dilaudid. He continues on Reglan and erythromycin. Review of Systems Respiratory: Denies: GAONA (dyspnea on exertion), SOB. Cardiovascular: Reports: palpitations. Denies: chest pain, GAONA ( dyspnea on exertion). GI: Reports: abdominal pain. Denies: constipation. : Denies: dysuria. Psych: Reports: anxiety, stress. All systems rev neg: except as marked Objective General VS/I O: Vital Signs: Date Time Temp Pulse Resp B/P B/P Pulse O2 O2 F low FiO2 Mean Ox Delivery Rate 06/16 0613 36.6 104 18 154/101 118.6 95 Room a ir 06/15 2252 36.6 103 18 154/103 120.0 95 Room ai r 06/15 1832 36.8 110 18 144/94 110.6 97 06/15 1417 36.9 113 18 137/82 100.6 95 Room air 24 hour I O ending at 0700: 06/16 0700 06/15 1900 Intake Total 3300.00 Output Total 800 Balance 3300.00 -800 Intake, IV 3300.00 Number 1 Bowel Movements Output, Urine 800 Patient Weight Weight (lb): Weight (oz): Weight (kg): 78.600 Medications: Active Meds + DC'd Last 24 Hrs Acetaminophen 650 MG Q6H PRN PRN PO Dicyclomine HCl 10 MG Q6H PRN PRN PO Hydralazine HCl 10 MG Q6H PRN PRN IV Magnesium Sulfate 50 ML ASDIR IV (CKD) Potassium Chloride 20 MEQ ASDIR PRN PO Potassium Chloride 20 MEQ Q2H PRN PRN PO Potassium Chloride 100 ML Q1H PRN PRN IV Potassium Chloride 100 ML Q1H PRN PRN IV Potassium Chloride 100 ML Q2H PRN PRN IV Erythromycin 250 MG Q8HR PO Hydromorphone HCl 1 MG Q4H PRN PRN IV Lactulose 30 ML BID PRN PRN PO (CKD) Iopamidol 0 .STK-MED ONE .ROUTE (DCr) Iopamidol 100 ML ONCE PRN IV Metoclopramide HCl 10 MG Q8HR IV Diphenhydramine HCl 50 MG Q8H IV Insulin Human Regular SLIDING SCALE AC HS SUBQ Dextrose/Water 25 ML ASDIR PRN IV Device 1 SYRINGE Glucagon 1 MG ASDIR PRN IM Morphine Sulfate 4 MG Q4H PRN PRN IV (DC) Ondansetron HCl 4 MG Q4H PRN PRN IV Sodium Chloride 1,000 ML .Q6H40M IV Physical Exam General appearance: alert, awake, oriented, no a cute distress, no respiratory distress Head/Eyes: atraumatic, normal conjunctiva/sclera , normocephalic, PERRLA ENT: moist mucosal membranes Neck: full range of motion, non-tender, supple/n o meningismus Cardiovascular: normal capillary refill, normal heart sounds, regular rate rhythm, no murmur, no rub Respiratory: aerating well, clear to auscultatio n, symmetric expansion, no distress Abdomen: guarding, non-tender, normal bowel soun ds, soft, no distention, no rebound Extremities: moves all, no clubbing, no cyanosis , no edema Musculoskeletal: normal inspection Neuro/AIRLINE COUNTER AGENT: alert, oriented X 3 Skin: dry, intact, no rash Psychiatry: anxious, normal judgment/insight Results Findings/Data: Laboratory Tests 06/16 1610 1112 0705 0559 Chemistry Sodium (136 - 145 mmol/L) 138 Potassium (3.5 - 5.1 mmol/L) 3.8 Chloride (98 - 107 mmol/L) 104 Carbon Dioxide (21 - 32 mmol/L) 26 BUN (7 - 18 mg/dL) 10 Creatinine (0.67 - 1.17 mg/dL) 0.70 Estimated GFR (MDRD) (>=60) > 60.00 Glucose (70 - 100 mg/dL) 220 H POC Glucose (70 - 105 mg/dL) 117 H 163 H 171 H 198 H Calcium (8.5 - 10.1 mg/dL) 8.6 Phosphorus (2.5 - 4.9 mg/dL) 2.2 L Laboratory Tests 06/16 0559 Hematology WBC (4.5 - 11.0 X10(3)) 7.2 RBC (4.3 - 5.9 X10(6)) 4.06 L Hgb (13.5 - 18.0 g/dL) 12.5 L Hct (42.0 - 52.0 %) 36.6 L MCV (78 - 100 fl) 90.1 MCH (26.0 - 34.0 pg) 30.8 MCHC (30.0 - 37.0 g/dl) 34.2 RDW (11.5 - 14.5 %) 11.8 Plt Count (150 - 350 X10(3)) 272 MPV (8.7 - 11.4 fl) 9.9 Neut % (Auto) (36.0 - 66.0 %) 75.2 H Lymph % (Auto) (16 - 50 %) 18.4 Dixie % (Auto) (0.0 - 13.0 %) 5.1 Eos % (Auto) (0.0 - 4.5 %) 0.6 Baso % (Auto) (0.0 - 1.5 %) 0.3 Immature Gran # (Auto) (0.00 - 0.03 X10(3)uL) 0 .03 Absolute Neuts (auto) (1.7 - 7.7 X10(3)) 5.4 Absolute Lymphs (auto) (0.7 - 4.0 X10(3)) 1.3 Absolute Monos (auto) (0.0 - 0.89 X10(3)) 0.4 Absolute Eos (auto) (0.0 - 0.6 X10(3)) 0.0 Absolute Basos (auto) (0.0 - 0.2 X10(3)) 0.0 Absolute Nucleated RBC (0.0 - 0.1 K/mm3) 0.00 Immature Gran % (0.0 - 2.0 %) 0.4 Nucleated RBC % (0 - 0.2 %) 0.0 Treatment Prophylaxis Treatment Prophylaxis Urine color: yellow Oxygen: room air Diagnosis, Assessment Plan Problem List/A P: 1. Gastroparesis 2. Epigastric pain 3. Uncontrolled diabetes mellitus 4. Gastroparesis diabeticorum 5. Chronic pain 6. Hyperglycemia 7. Poorly controlled diabetes mellitus 8. Nausea vomiting 9. DM type 1 (diabetes mellitus, type 1) 10. Abdominal pain Free Text DxA P Notes Free Text DxA P Notes: ASSESSMENT Severe diffuse epigastric abdominal pain Diabetes mellitus Diabetic gastroparesis with gastric pacemaker Chronic abdominal pain Disabled status PLAN *Continue on Dilaudid. Patient continues with se jumana diffuse epigastric abdominal pain out of proportion to diagnosis. C T abdomen pelvis negative. *Patient with diabetic gastr oparesis with gastric pacemaker on Reglan. Continue on erythromycin reglan due to persistent diffus e epigastric abdominal pain. *Patient may benefit from pain management specia list post discharge. *Continue on as needed antie metics, analgesics, antihypertensives and laxatives as indicated *Continue current medical management. *Labs in a.m.: CBC and BMP *Electrolytes to be replaced as indicated. *DVT prophylaxis addressed. *We will continue to follow closely and reevalua te for adjustment in medical therapy as indicated. Plan of care discussed with the patient and [facility] nurse. All questions answered. Patient seen by, assessed by , chart reviewed by and plan of care discussed with Dr. Josh Berry. See chart for further orders. Discharge planning: Home once pain is better con verna. Josh Berry 06/19/19 1031: Attestations Physician Attestation Agree w/findings plan: Agree with the findings and plan as documented Anika Torres [employer] at 0893 at 0021 RPT #:[id number] END OF REPORT 2019-06-15 20:24:00-00:00 [facility] Hospitalist Progress Note REPORT#:[id number] REPORT STATUS: Signed DATE:06/15/19 TIME: 2023 PATIENT: RADHA CARPENTER UNIT #: [id number] ROOM/BED: [facility] : 82 AGE: 38 SEX: M ATTEND: Josh Gilliland Ba ADM AUTHOR: Sandra Torres N * ALL edits or amendments must be made on the [employer]/computer document * Subjective Chief Complaint: Last 24 hours: Patient continues with severe abd ominal pain out of proportion with diagnosis. Evaluated by GI CT of the abdome n ordered. Patient has been requesting the morphine [id number]. He has been instructing nurse to administer the medication fast through the IV. H e is reporting that the morphine is not working and is requestin andrea Pickens. He also has been expecting staff to bring the medication without as francisca for it as needed. GI recommending [employer] a nd initiating of erythromycin if Reglan has not been working which was ordered. Review of Systems GI: Reports: abdominal pain. All systems rev neg: except as marked Objective General VS/I O: Vital Signs: Date Time Temp Pulse Resp B/P B/P Pulse O2 O2 F low FiO2 Mean Ox Delivery Rate 06/15 1832 36.8 110 18 144/94 110.6 97 06/15 1417 36.9 113 18 137/82 100.6 95 Room air 06/15 0649 36.6 107 18 123/76 91.6 94 Room air 06/15 0436 36.6 102 18 147/93 111.4 94 Room air 06/15 0211 36.6 111 18 127/86 100.0 94 Room air 06/14 2359 36.4 107 18 148/98 114.5 90 Room air 06/14 2146 36.9 113 22 124/86 98.8 96 Room air 24 hour I O ending at 0700: 06/15 0700 06/14 1900 Intake Total 1804.00 3396.00 Output Total Balance 1804.00 3396.00 Intake, IV 1804.00 2556.00 Intake, Oral 840 Number 0 Bowel Movements Number Voids 1 Patient Weight Weight (lb): Weight (oz): Weight (kg): 78.600 Medications: Active Meds + DC'd Last 24 Hrs Erythromycin 250 MG Q8HR PO Hydromorphone HCl 1 MG Q4H PRN PRN IV Lactulose 30 ML BID PRN PRN PO (CKD) Iopamidol 0 .STK-MED ONE .ROUTE (DCr) Barium Sulfate 450 ML Q30M PO (DC) Iopamidol 100 ML ONCE PRN IV Metoclopramide HCl 10 MG Q8HR IV Diphenhydramine HCl 50 MG Q8H IV Hydromorphone HCl 2 MG ONCE ONE IV (DC) Insulin Human Regular SLIDING SCALE AC HS SUBQ Dextrose/Water 25 ML ASDIR PRN IV Device 1 SYRINGE Glucagon 1 MG ASDIR PRN IM Morphine Sulfate 4 MG Q4H PRN PRN IV Ondansetron HCl 4 MG Q4H PRN PRN IV Sodium Chloride 1,000 ML .Q6H40M IV Physical Exam General appearance: alert, awake, oriented, no a cute distress, no respiratory distress Head/Eyes: atraumatic, normal conjunctiva/sclera , normocephalic, PERRLA ENT: moist mucosal membranes Neck: full range of motion, non-tender, supple/n o meningismus Cardiovascular: normal capillary refill, normal heart sounds, regular rate rhythm, no murmur, no rub Respiratory: aerating well, clear to auscultatio n, symmetric expansion, no distress Abdomen: guarding, non-tender, normal bowel soun ds, soft, no distention, no rebound Extremities: moves all, no clubbing, no cyanosis , no edema Musculoskeletal: normal inspection Neuro/AIRLINE COUNTER AGENT: alert, oriented X 3 Skin: dry, intact, no rash Psychiatry: anxious, normal judgment/insight Results Findings/Data: Laboratory Tests 06/15 06/15 06/15 06/14 1618 1127 0611 2032 Chemistry POC Glucose (70 - 105 mg/dL) 171 H 171 H 191 H 188 H Laboratory Tests 06/15 1343 Urines Ur Random Creatinine (mg/dL) 37.0 Radiology data: Recent Impressions: RADIOLOGY - XR ABDOMEN 1V (KUB) 06/14 2222 Report Impression - Status: SIGNED Entered: 06/14/2019 2239 IMPRESSION: No acute findings in the abdomen or pelvis. Impression By: Yakov - MEAGAN GONZALES MD CAT SCAN - CT ABD PELVIS W/CONT 06/15 1558 Report Impression - Status: SIGNED Entered: 06/15/2019 1625 IMPRESSION: No acute findings within abdomen nor pelvis. Bibasilar dependent changes, left greater than r ight with tiny left pleural effusion. Fairly extensive atherosclerotic calcifications. Impression By: [email or web address] - VERITO Cortes Diagnosis, Assessment Plan Free Text DxA P Notes Free Text DxA P Notes: ASSESSMENT Severe diffuse epigastric abdominal pain Diabetes mellitus Diabetic gastroparesis with gastric pacemaker Chronic abdominal pain Disabled status PLAN *Discontinue morphine and start on Dilaudid. Pat ient continues with severe diffuse epigastric abdominal pain with C T of the abdomen ordered with no acute findings. *Patient with diabetic gastroparesis wit h gastric pacemaker on Reglan. We will add erythromycin due to persistent diffuse epiga stric abdominal pain. *Patient may benefit from pain management specia list post discharge. *Continue on as needed antie metics, analgesics, antihypertensives and laxatives as indicated *Continue current medical management. *Labs in a.m.: CBC and BMP *Electrolytes to be replaced as indicated. *DVT prophylaxis addressed. *We will continue to follow closely and reevalua te for adjustment in medical therapy as indicated. Plan of care discussed with the patient and [facility] nurse. All questions answered. Patient seen by, assessed by , chart reviewed by and plan of care discussed with Dr. Josh Berry. See chart for further orders. at 2031 RPT #:[id number] END OF REPORT 2019-06-15 20:24:00-00:00 [facility] Hospitalist Progress Note REPORT#:[id number] REPORT STATUS: Signed DATE:06/15/19 TIME: 2023 PATIENT: RADHA CARPENTER UNIT #: [id number] ROOM/BED: [address] : [birth year] AGE: 38 SEX: M ATTEND: Josh Gilliland Ba ADM AUTHOR: Sandra Torres N * ALL edits or amendments must be made on the [employer]/computer document * Sandra Torres 06/15/192023: Subjective Chief Complaint: Last 24 hours: Patient continues with severe abd ominal pain out of proportion with diagnosis. Evaluated by GI CT of the abdome n ordered. Patient has been requesting the morphine [id number]. He has been instructing nurse to administer the medication fast through the IV. Mathew e is reporting that the morphine is not working and is requestin andrea Pickens. He also has been expecting staff to bring the medication without as francisca for it as needed. GI recommending [employer] a nd initiating of erythromycin if Reglan has not been working which was ordered. Review of Systems GI: Reports: abdominal pain. All systems rev neg: except as marked Objective General VS/I O: Vital Signs: Date Time Temp Pulse Resp B/P B/P Pulse O2 O2 Flow FiO2 Mean Ox Delivery Rate 06/15 1832 36.8 110 18 144/94 110.6 97 06/15 1417 36.9 113 18 137/82 100.6 95 Room air 06/15 0649 36.6 107 18 123/76 91.6 94 Room air 06/15 0436 36.6 102 18 147/93 111.4 94 Room air 06/15 0211 36.6 111 18 127/86 100.0 94 Room ai r 06/14 2359 36.4 107 18 148/98 114.5 90 Room air 06/14 2146 36.9 113 22 124/86 98.8 96 Room air 24 hour I O ending at 0700: 06/15 0700 06/14 1900 Intake Total 1804.00 3396.00 Output Total Balance 1804.00 3396.00 Intake, IV 1804.00 2556.00 Intake, Oral 840 Number 0 Bowel Movements Number Voids 1 Patient Weight Weight (lb): Weight (oz): Weight (kg): 78.600 Medications: Active Meds + DC'd Last 24 Hrs Erythromycin 250 MG Q8HR PO Hydromorphone HCl 1 MG Q4H PRN PRN IV Lactulose 30 ML BID PRN PRN PO (CKD) Iopamidol 0 .STK-MED ONE .ROUTE (DCr) Barium Sulfate 450 ML Q30M PO (DC) Iopamidol 100 ML ONCE PRN IV Metoclopramide HCl 10 MG Q8HR IV Diphenhydramine HCl 50 MG Q8H IV Hydromorphone HCl 2 MG ONCE ONE IV (DC) Insulin Human Regular SLIDING SCALE AC HS SUBQ Dextrose/Water 25 ML ASDIR PRN IV Device 1 SYRINGE Glucagon 1 MG ASDIR PRN IM Morphine Sulfate 4 MG Q4H PRN PRN IV Ondansetron HCl 4 MG Q4H PRN PRN IV Sodium Chloride 1,000 ML .Q6H40M IV Physical Exam General appearance: alert, awake, oriented, no a cute distress, no respiratory distress Head/Eyes: atraumatic, normal conjunctiva/sclera , normocephalic, PERRLA ENT: moist mucosal membranes Neck: full range of motion, non-tender, supple/n o meningismus Cardiovascular: normal capillary refill, normal heart sounds, regular rate rhythm, no murmur, no rub Respiratory: aerating well, clear to auscultatio n, symmetric expansion, no distress Abdomen: guarding, non-tender, normal bowel soun ds, soft, no distention, no rebound Extremities: moves all, no clubbing, no cyanosis , no edema Musculoskeletal: normal inspection Neuro/AIRLINE COUNTER AGENT: alert, oriented X 3 Skin: dry, intact, no rash Psychiatry: anxious, normal judgment/insight Results Findings/Data: Laboratory Tests 06/15 06/15 06/15 06/14 1618 1127 0611 2033 Chemistry POC Glucose (70 - 105 mg/dL) 171 H 171 H 191 H 188 H Laboratory Tests 06/15 1343 Urines Ur Random Creatinine (mg/dL) 37.0 Radiology data: Recent Impressions: RADIOLOGY - XR ABDOMEN 1V (KUB) 06/14 2223 Report Impression - Status: SIGNED Entered: 06/14/2019 2239 IMPRESSION: No acute findings in the abdomen or pelvis. Impression By: Yakov GONZALES MD CAT SCAN - CT ABD PELVIS W/CONT 06/15 1558 Report Impression - Status: SIGNED Entered: 06/15/2019 1625 IMPRESSION: No acute findings within abdomen nor pelvis. Bibasilar dependent changes, left greater than r ight with tiny left pleural effusion. Fairly extensive atherosclerotic calcifications. Impression By: [email or web address] Tiffanie Cortes Diagnosis, Assessment Plan Free Text DxA P Notes Free Text DxA P Notes: ASSESSMENT Severe diffuse epigastric abdominal pain Diabetes mellitus Diabetic gastroparesis with gastric pacemaker Chronic abdominal pain Disabled status PLAN *Discontinue morphine and start on Dilaudid. Pat ient continues with severe diffuse epigastric abdominal pain with C T of the abdomen ordered with no acute findings. *Patient with diabetic gastroparesis wit h gastric pacemaker on Reglan. We will add erythromycin due to persistent diffuse epiga stric abdominal pain. *Patient may benefit from pain management specia list post discharge. *Continue on as needed antie metics, analgesics, antihypertensives and laxatives as indicated *Continue current medical management. *Labs in a.m.: CBC and BMP *Electrolytes to be replaced as indicated. *DVT prophylaxis addressed. *We will continue to follow closely and reevalua te for adjustment in medical therapy as indicated. Plan of care discussed with the patient and rust f nurse. All questions answered. Patient seen by, assessed by , chart reviewed by and plan of care discussed with Dr. Josh Berry. See chart for further orders. Josh Berry 06/16/195: Attestations Physician Attestation Agree w/findings plan: Agree with the findings and plan as documented Anika Torres [employer] at 2031 RPT #:[id number] END OF REPORT 2019-06-15 20:24:00-00:00 [facility] Hospitalist Progress Note REPORT#:[id number] REPORT STATUS: Signed DATE:06/15/19 TIME: 2023 PATIENT: RADHA CARPENTER UNIT #: [id number] ROOM/BED: [address] : [birth year] AGE: 38 SEX: M ATTEND: Josh Gilliland Ba ADM AUTHOR: Sandra Torres PN * ALL edits or amendments must be made on the [employer]/computer document * Sandra Torres 06/15/192023: Subjective Chief Complaint: Last 24 hours: Patient continues with severe abd ominal pain out of proportion with diagnosis. Evaluated by GI CT of the abdome n ordered. Patient has been requesting the morphine [id number]. He has been instructing nurse to administer the medication fast through the IV. Mathew gómez is reporting that the morphine is not working and is requestin andrea Dilaudid. He also has been expecting staff to bring the medication without as francisca for it as needed. GI recommending [employer] a nd initiating of erythromycin if Reglan has not been working which was ordered. Review of Systems GI: Reports: abdominal pain. All systems rev neg: except as marked Objective General VS/I O: Vital Signs: Date Time Temp Pulse Resp B/P B/P Pulse O2 O2 F low FiO2 Mean Ox Delivery Rate 06/15 1832 36.8 110 18 144/94 110.6 97 06/15 1417 36.9 113 18 137/82 100.6 95 Room air 06/15 0649 36.6 107 18 123/76 91.6 94 Room air 06/15 0436 36.6 102 18 147/93 111.4 94 Room ai r 06/15 0211 36.6 111 18 127/86 100.0 94 Room air 06/14 2359 36.4 107 18 148/98 114.5 90 Room air 06/14 2146 36.9 113 22 124/86 98.8 96 Room air 24 hour I O ending at 0700: 06/15 0700 06/14 1900 Intake Total 1804.00 3396.00 Output Total Balance 1804.00 3396.00 Intake, IV 1804.00 2556.00 Intake, Oral 840 Number 0 Bowel Movements Number Voids 1 Patient Weight Weight (lb): Weight (oz): Weight (kg): 78.600 Medications: Active Meds + DC'd Last 24 Hrs Erythromycin 250 MG Q8HR PO Hydromorphone HCl 1 MG Q4H PRN PRN IV Lactulose 30 ML BID PRN PRN PO (CKD) Iopamidol 0 .STK-MED ONE .ROUTE (DCr) Barium Sulfate 450 ML Q30M PO (DC) Iopamidol 100 ML ONCE PRN IV Metoclopramide HCl 10 MG Q8HR IV Diphenhydramine HCl 50 MG Q8H IV Hydromorphone HCl 2 MG ONCE ONE IV (DC) Insulin Human Regular SLIDING SCALE AC HS SUBQ Dextrose/Water 25 ML ASDIR PRN IV Device 1 SYRINGE Glucagon 1 MG ASDIR PRN IM Morphine Sulfate 4 MG Q4H PRN PRN IV Ondansetron HCl 4 MG Q4H PRN PRN IV Sodium Chloride 1,000 ML .Q6H40M IV Physical Exam General appearance: alert, awake, oriented, no a cute distress, no respiratory distress Head/Eyes: atraumatic, normal conjunctiva/sclera , normocephalic, PERRLA ENT: moist mucosal membranes Neck: full range of motion, non-tender, supple/n o meningismus Cardiovascular: normal capillary refill, normal heart sounds, regular rate rhythm, no murmur, no rub Respiratory: aerating well, clear to auscultatio n, symmetric expansion, no distress Abdomen: guarding, non-tender, normal bowel soun ds, soft, no distention, no rebound Extremities: moves all, no clubbing, no cyanosis , no edema Musculoskeletal: normal inspection Neuro/AIRLINE COUNTER AGENT: alert, oriented X 3 Skin: dry, intact, no rash Psychiatry: anxious, normal judgment/insight Results Findings/Data: Laboratory Tests 06/15 06/15 06/15 06/14 1618 1127 0611 2033 Chemistry POC Glucose (70 - 105 mg/dL) 171 H 171 H 191 H 188 H Laboratory Tests 06/15 1343 Urines Ur Random Creatinine (mg/dL) 37.0 Radiology data: Recent Impressions: RADIOLOGY - XR ABDOMEN 1V (KUB) 06/14 2223 Report Impression - Status: SIGNED Entered: 06/14/2019 2239 IMPRESSION: No acute findings in the abdomen or pelvis. Impression By: Yakov GONZALES MD CAT SCAN - CT ABD PELVIS W/CONT 06/15 1558 Report Impression - Status: SIGNED Entered: 06/15/2019 1625 IMPRESSION: No acute findings within abdomen nor pelvis. Bibasilar dependent changes, left greater than r ight with tiny left pleural effusion. Fairly extensive atherosclerotic calcifications. Impression By: [email or web address] - VERITO Cortes Diagnosis, Assessment Plan Free Text DxA P Notes Free Text DxA P Notes: ASSESSMENT Severe diffuse epigastric abdominal pain Diabetes mellitus Diabetic gastroparesis with gastric pacemaker Chronic abdominal pain Disabled status PLAN *Discontinue morphine and start on Dilaudid. Pat ient continues with severe diffuse epigastric abdominal pain with C T of the abdomen ordered with no acute findings. *Patient with diabetic gastroparesis wit h gastric pacemaker on Reglan. We will add erythromycin due to persistent diffuse epiga stric abdominal pain. *Patient may benefit from pain management specia list post discharge. *Continue on as needed antie metics, analgesics, antihypertensives and laxatives as indicated *Continue current medical management. *Labs in a.m.: CBC and BMP *Electrolytes to be replaced as indicated. *DVT prophylaxis addressed. *We will continue to follow closely and reevalua te for adjustment in medical therapy as indicated. Plan of care discussed with the patient and frank kowk nurse. All questions answered. Patient seen by, assessed by , chart reviewed by and plan of care discussed with Dr. Josh Berry. See chart for further orders. Josh Berry 06/16/195: Attestations Physician Attestation Agree w/findings plan: Agree with the findings and plan as documented Anika Torres [employer] Reviewed findings plan: Reviewed the findings and plan as documented by [insert VAN name]; * my personal evaluation is [ ] at 2031 RPT #:[id number] END OF REPORT 2019-06-15 20:24:00-00:00 [facility] Hospitalist Progress Note REPORT#:[id number] REPORT STATUS: Signed DATE:06/15/19 TIME: 2023 PATIENT: RADHA CARPENTER UNIT #: [id number] [facility] AGE: 38 SEX: M ATTEND: Josh Gilliland Ba ADM AUTHOR: Sandra Torres * ALL edits or amendments must be made on the el [employer]/computer document * Sandra Torres 06/15/192023: Subjective Chief Complaint: Last 24 hours: Patient continues with severe abd ominal pain out of proportion with diagnosis. Evaluated by GI CT of the abdome n ordered. Patient has been requesting the morphine [id number]. He has been instructing nurse to administer the medication fast through the IV. Mathew gómez is reporting that the morphine is not working and is requestin andrea Pickens. He also has been expecting staff to bring the medication without as francisca for it as needed. GI recommending [employer] a nd initiating of erythromycin if Reglan has not been working which was ordered. Review of Systems GI: Reports: abdominal pain. All systems rev neg: except as marked Objective General VS/I O: Vital Signs: Date Time Temp Pulse Resp B/P B/P Pulse O2 O2 F low FiO2 Mean Ox Delivery Rate 06/15 1832 36.8 110 18 144/94 110.6 97 06/15 1417 36.9 113 18 137/82 100.6 95 Room air 06/15 0649 36.6 107 18 123/76 91.6 94 Room air 06/15 0436 36.6 102 18 147/93 111.4 94 Room air 06/15 0211 36.6 111 18 127/86 100.0 94 Room air 06/14 2359 36.4 107 18 148/98 114.5 90 Room air 06/14 2146 36.9 113 22 124/86 98.8 96 Room air 24 hour I O ending at 0700: 06/15 0700 06/14 1900 Intake Total 1804.00 3396.00 Output Total Balance 1804.00 3396.00 Intake, IV 1804.00 2556.00 Intake, Oral 840 Number 0 Bowel Movements Number Voids 1 Patient Weight Weight (lb): Weight (oz): Weight (kg): 78.600 Medications: Active Meds + DC'd Last 24 Hrs Erythromycin 250 MG Q8HR PO Hydromorphone HCl 1 MG Q4H PRN PRN IV Lactulose 30 ML BID PRN PRN PO (CKD) Iopamidol 0 .STK-MED ONE .ROUTE (DCr) Barium Sulfate 450 ML Q30M PO (DC) Iopamidol 100 ML ONCE PRN IV Metoclopramide HCl 10 MG Q8HR IV Diphenhydramine HCl 50 MG Q8H IV Hydromorphone HCl 2 MG ONCE ONE IV (DC) Insulin Human Regular SLIDING SCALE AC HS SUBQ Dextrose/Water 25 ML ASDIR PRN IV Device 1 SYRINGE Glucagon 1 MG ASDIR PRN IM Morphine Sulfate 4 MG Q4H PRN PRN IV Ondansetron HCl 4 MG Q4H PRN PRN IV Sodium Chloride 1,000 ML .Q6H40M IV Physical Exam General appearance: alert, awake, oriented, no a cute distress, no respiratory distress Head/Eyes: atraumatic, normal conjunctiva/sclera , normocephalic, PERRLA ENT: moist mucosal membranes Neck: full range of motion, non-tender, supple/n o meningismus Cardiovascular: normal capillary refill, normal heart sounds, regular rate rhythm, no murmur, no rub Respiratory: aerating well, clear to auscultatio n, symmetric expansion, no distress Abdomen: guarding, non-tender, normal bowel soun ds, soft, no distention, no rebound Extremities: moves all, no clubbing, no cyanosis , no edema Musculoskeletal: normal inspection Neuro/AIRLINE COUNTER AGENT: alert, oriented X 3 Skin: dry, intact, no rash Psychiatry: anxious, normal judgment/insight Results Findings/Data: Laboratory Tests 06/15 06/15 06/15 06/14 1618 1127 0611 2033 Chemistry POC Glucose (70 - 105 mg/dL) 171 H 171 H 191 H 188 H Laboratory Tests 06/15 1343 Urines Ur Random Creatinine (mg/dL) 37.0 Radiology data: Recent Impressions: RADIOLOGY - XR ABDOMEN 1V (KUB) 06/14 2223 Report Impression - Status: SIGNED Entered: 06/14/2019 2239 IMPRESSION: No acute findings in the abdomen or pelvis. Impression By: Yakov - MEAGAN GONZALES MD CAT SCAN - CT ABD PELVIS W/CONT 06/15 1558 Report Impression - Status: SIGNED Entered: 06/15/2019 1625 IMPRESSION: No acute findings within abdomen nor pelvis. Bibasilar dependent changes, left greater than r ight with tiny left pleural effusion. Fairly extensive atherosclerotic calcifications. Impression By: [email or web address] - VERITO Cortes Diagnosis, Assessment Plan Free Text DxA P Notes Free Text DxA P Notes: ASSESSMENT Severe diffuse epigastric abdominal pain Diabetes mellitus Diabetic gastroparesis with gastric pacemaker Chronic abdominal pain Disabled status PLAN *Discontinue morphine and start on Dilaudid. Pat ient continues with severe diffuse epigastric abdominal pain with C T of the abdomen ordered with no acute findings. *Patient with diabetic gastroparesis wit h gastric pacemaker on Reglan. We will add erythromycin due to persistent diffuse epiga stric abdominal pain. *Patient may benefit from pain management specia list post discharge. *Continue on as needed antie metics, analgesics, antihypertensives and laxatives as indicated *Continue current medical management. *Labs in a.m.: CBC and BMP *Electrolytes to be replaced as indicated. *DVT prophylaxis addressed. *We will continue to follow closely and reevalua te for adjustment in medical therapy as indicated. Plan of care discussed with the patient and rust f nurse. All questions answered. Patient seen by, assessed by , chart reviewed by and plan of care discussed with Dr. Josh Berry. See chart for further orders. Josh Berry 06/16/195: Attestations Physician Attestation Agree w/findings plan: Agree with the findings and plan as documented Anika Torres [employer] at 2031 RPT #:[id number] END OF REPORT 2019-06-15 20:24:00-00:00 [facility] Hospitalist Progress Note REPORT#:[id number] REPORT STATUS: Signed DATE:06/15/19 TIME: 2023 PATIENT: RADHA CARPENTER UNIT #: [id number] ROOM/BED: [address] : 82 AGE: 38 SEX: M ATTEND: Josh Gilliland Ba ADM AUTHOR: Sandra Torres * ALL edits or amendments must be made on the el [facility]/computer document * Sandra Torres 06/15/192023: Subjective Chief Complaint: Last 24 hours: Patient continues with severe abd ominal pain out of proportion with diagnosis. Evaluated by GI CT of the abdome n ordered. Patient has been requesting the morphine [id number]. He has been instructing nurse to administer the medication fast through the IV. H e is reporting that the morphine is not working and is randall Pickens. He also has been expecting staff to bring the medication without as francisca for it as needed. GI recommending [employer] a nd initiating of erythromycin if Reglan has not been working which was ordered. Review of Systems GI: Reports: abdominal pain. All systems rev neg: except as marked Objective General VS/I O: Vital Signs: Date Time Temp Pulse Resp B/P B/P Pulse O2 O2 F low FiO2 Mean Ox Delivery Rate 06/15 1832 36.8 110 18 144/94 110.6 97 06/15 1417 36.9 113 18 137/82 100.6 95 Room air 06/15 0649 36.6 107 18 123/76 91.6 94 Room air 06/15 0436 36.6 102 18 147/93 111.4 94 Room ai r 06/15 0211 36.6 111 18 127/86 100.0 94 Room air 06/14 2359 36.4 107 18 148/98 114.5 90 Room air 06/14 2146 36.9 113 22 124/86 98.8 96 Room air 24 hour I O ending at 0700: 06/15 0700 06/14 1900 Intake Total 1804.00 3396.00 Output Total Balance 1804.00 3396.00 Intake, IV 1804.00 2556.00 Intake, Oral 840 Number 0 Bowel Movements Number Voids 1 Patient Weight Weight (lb): Weight (oz): Weight (kg): 78.600 Medications: Active Meds + DC'd Last 24 Hrs Erythromycin 250 MG Q8HR PO Hydromorphone HCl 1 MG Q4H PRN PRN IV Lactulose 30 ML BID PRN PRN PO (CKD) Iopamidol 0 .STK-MED ONE .ROUTE (DCr) Barium Sulfate 450 ML Q30M PO (DC) Iopamidol 100 ML ONCE PRN IV Metoclopramide HCl 10 MG Q8HR IV Diphenhydramine HCl 50 MG Q8H IV Hydromorphone HCl 2 MG ONCE ONE IV (DC) Insulin Human Regular SLIDING SCALE AC HS SUBQ Dextrose/Water 25 ML ASDIR PRN IV Device 1 SYRINGE Glucagon 1 MG ASDIR PRN IM Morphine Sulfate 4 MG Q4H PRN PRN IV Ondansetron HCl 4 MG Q4H PRN PRN IV Sodium Chloride 1,000 ML .Q6H40M IV Physical Exam General appearance: alert, awake, oriented, no a cute distress, no respiratory distress Head/Eyes: atraumatic, normal conjunctiva/sclera , normocephalic, PERRLA ENT: moist mucosal membranes Neck: full range of motion, non-tender, supple/n o meningismus Cardiovascular: normal capillary refill, normal heart sounds, regular rate rhythm, no murmur, no rub Respiratory: aerating well, clear to auscultatio n, symmetric expansion, no distress Abdomen: guarding, non-tender, normal bowel soun ds, soft, no distention, no rebound Extremities: moves all, no clubbing, no cyanosis , no edema Musculoskeletal: normal inspection Neuro/AIRLINE COUNTER AGENT: alert, oriented X 3 Skin: dry, intact, no rash Psychiatry: anxious, normal judgment/insight Results Findings/Data: Laboratory Tests 06/15 06/15 06/15 06/14 1618 1127 0611 2033 Chemistry POC Glucose (70 - 105 mg/dL) 171 H 171 H 191 H 188 H Laboratory Tests 06/15 1343 Urines Ur Random Creatinine (mg/dL) 37.0 Radiology data: Recent Impressions: RADIOLOGY - XR ABDOMEN 1V (KUB) 06/14 2223 Report Impression - Status: SIGNED Entered: 06/14/2019 2239 IMPRESSION: No acute findings in the abdomen or pelvis. Impression By: Yakov GONZALES MD CAT SCAN - CT ABD PELVIS W/CONT 06/15 1558 Report Impression - Status: SIGNED Entered: 06/15/2019 1625 IMPRESSION: No acute findings within abdomen nor pelvis. Bibasilar dependent changes, left greater than r ight with tiny left pleural effusion. Fairly extensive atherosclerotic calcifications. Impression By: [email or web address] - VERITO Cortes Diagnosis, Assessment Plan Free Text DxA P Notes Free Text DxA P Notes: ASSESSMENT Severe diffuse epigastric abdominal pain Diabetes mellitus Diabetic gastroparesis with gastric pacemaker Chronic abdominal pain Disabled status PLAN *Discontinue morphine and start on Dilaudid. Pat ient continues with severe diffuse epigastric abdominal pain with C T of the abdomen ordered with no acute findings. *Patient with diabetic gastroparesis wit h gastric pacemaker on Reglan. We will add erythromycin due to persistent diffuse epiga stric abdominal pain. *Patient may benefit from pain management specia list post discharge. *Continue on as needed antie metics, analgesics, antihypertensives and laxatives as indicated *Continue current medical management. *Labs in a.m.: CBC and BMP *Electrolytes to be replaced as indicated. *DVT prophylaxis addressed. *We will continue to follow closely and reevalua te for adjustment in medical therapy as indicated. Plan of care discussed with the patient and rust sundar nurse. All questions answered. Patient seen by, assessed by , chart reviewed by and plan of care discussed with Dr. Josh Berry. See chart for further orders. Josh Berry 06/16/19 1935: Attestations Physician Attestation Agree w/findings plan: Agree with the findings and plan as documented ean y Sandra Torres [employer] at 2032 at 0046 RPT #:[id number] END OF REPORT 2019-06-15 12:50:00-00:00 [facility] General Consultation REPORT#:[id number] REPORT STATUS: Signed DATE:06/15/19 TIME: 1250 PATIENT: RADHA CARPENTER UNIT #: [id number] ROOM/BED: [address] : 82 AGE: 38 SEX: M ATTEND: Josh Gilliland Ba ADM AUTHOR: Shaila Kang MD * ALL edits or amendments must be made on the [employer]/computer document * History of Present Illness Requesting Clinician: Dr. Berry Reason for consult: abd pain Chief complaint: abd pain, n/v HPI: 38 yo HM who is now disabled due to his GI complaints, presents with severe abd pain 10/10 n/v which he stat es is due to his gastroparesis. I have seen patient for several years. He has pretty d complete GI workup by me in the past. He has been referred to other GI's and facilities for 2nd op inion. He now has a gastric pacemaker. It is set at max settings and he is still getting episodes of severe abdominal pain, n/v. What has been extraordinary about his symptoms from the beginning throughout my evalution is the amount of PAIN associated with these "flare Ups". In addition, CT scan does not show any increased amount of fluid or distension of the stomach. xray normal. When I walk into the patient s room, he is writhing in pain. He can barely speak to me due to the pain. He is receiving pain medications which do not ap pear to be helping him. He takes motilium as an outpatient. History - Adult longitudinal Past medical history: Reports: Diabetes mellitus. Additional medical history: Reports chronic abdominal pain and gastroparesis Past surgical history: Reports: Cholecystectomy. Additional surgical history: Reports having a nerve stimulator Additional family history: Noncontributory Alcohol use: Denies EtOH use Drug use: Denies recreational drugs Smoking status for patients 13 years old or olde r: Never Smoker Other social history: Disabled, Good social supp ort Medications: Home Medications: Medication Dose/Rte/Freq Days Qty Entered Last Max Daily Dose Reviewed NORTRIPTYLINE (PAMELOR) 50 MG PO BEDTIME Strength: 50 MG CAP 0826 FAMOTIDINE (PEPCID) 20 MG PO BEDTIME 06/15/19 Strength: 20 MG TAB 0827 SIMVASTATIN (ZOCOR) 10 MG PO BEDTIME 06/15/19 Strength: 10 MG TAB 0827 ZOLPIDEM (AMBIEN) 10 MG PO BEDTIME 06/15/19 Strength: 10 MG TAB 0828 INSULIN GLARGINE 06/15/19 (LANTUS) 0829 Strength: 100 UNIT/ML VIAL INSULIN ASPART (NovoLOG) 06/15/19 Strength: 100 UNIT/ML VIAL 0830 Current Hospital Medications: Antihistamine Drugs Sig/Sima Start time Last Medication Dose Route Stop Time Status Admin Diphenhydramine HCl 50 MG Q8H 06/14 2129 AC (BENADRYL) IV 07/14 2130 0603 Central Nervous System Agents Sig/Sima Start time Last Medication Dose Route Stop Time Status Admin Hydromorphone HCl 2 MG ONCE ONE 06/14 2114 DC 0 06/14 (HYDROmorphone HCL) IV 01/28 2116 2202 Morphine Sulfate 4 MG Q4H PRN PRN 06/13 1830 A C 06/15 (morphine SULFATE) IV 06/18 1831 1245 Diagnostic Agents Sig/Sima Start time Last Medication Dose Route Stop Time Status Admin Barium Sulfate 450 ML Q30M 06/15 0800 DC 06/15 (READI-CAT 2) PO 06/15 0831 1254 Iopamidol 100 ML ONCE PRN 06/15 0800 AC (ISOVUE-300 61% IV 100ml) Electrolytic, Caloric, And Yumiko Sig/Sima Start time Last Medication Dose Route Stop Time Status Admin Dextrose/Water 25 ML ASDIR PRN 06/13 1830 AC (DEXTROSE 50% IV 07/13 183 SYRINGE) Device 1 SYRINGE (SYRINGE FILLED) Sodium Chloride 1,000 ML .Q6H40M 06/13 1830 AC 06/15 (SODIUM CHLORIDE IV 07/13 183 1253 0.9%) Gastrointestinal Drugs Sig/Sima Start time Last Medication Dose Route Stop Time Status Admin Metoclopramide HCl 10 MG Q8HR 06/14 2200 AC (REGLAN) IV 07/14 2201 0602 Ondansetron HCl 4 MG Q4H PRN PRN 06/13 1830 AC 06/14 (ZOFRAN) IV 07/13 183 0112 Hormones And Synthetic Substit Sig/Sima Start time Last Medication Dose Route Stop Time Status Admin Insulin Human Regular See Dose AC HS 06/13 2100 AC 06/14 (Humulin R) Insts (1) SUBQ 07/13 2101 2348 Glucagon 1 MG ASDIR PRN 06/13 183 AC (GLUCAGON) IM 07/13 183 Dose Instructions: (1)Insulin Human Regular (Humulin R): SLIDING SCALE Allergies: Coded Allergies: clonidine (ANXIETY 05/20/19) Review of Systems Constitutional: fatigue. Denies: chills, fev er, generalized weakness, lethargy, malaise, recent wt loss, other. Skin: Denies: abrasion, bruising, contusion, diaphores is, ecchymosis, itching, laceration, rash, swelling, other. Allergy/Immun: Denies: allergic reaction, anaphylaxis, hives, i tching, rhinorrhea, sneezing, other. Eyes: Denies: redness, discharge, visual loss/blurred, itching, diplopia, eye pain, photophobia, swelling, other. ENT: Denies: ear drainage, ear ringing, earache, hear ing loss, mouth pain, nasal congestion, nose bleeding, sinus problem, sore t hroat, throat pain, throat swelling, tongue pain, tongue swelling, toothach e, voice change, other. Respiratory: Denies: GAONA (dyspnea on exertion), hemoptysis, n on productive cough, parox nocturnal dyspnea, pleurisy, pleuritic pain, pneumonia, productive cough (sputum ), SOB, wheezing, other. Cardiovascular: Denies: chest pain, GAONA (dyspnea on exer tion), edema, orthopnea, palpitations, parox nocturnal dyspnea, other. GI: Reports: abdominal pain. Denies: anorexia, const ipation, diarrhea, dysphagia, GERD, hematemesis, hematochezia, hiatal hernia, melena, nausea, rectal pain, vomiting, other. : Denies: dysuria, flank pain, frequency, hematuria, nocturia, penile discharge, penile lesion, testicular pa in, testicular swelling, urgency, urinary retention, other. Musculoskeletal: Denies: arthritis, extremity pain, extremity swe lling, joint pain, joint swelling, lumbar pain, myalgias, neck pain, thor acic pain, other. Heme: Denies: adenopathy, bleeding, bruising, petechia e, other. Endocrine: Denies: cold intolerance, heat intolerance, poly dipsia, polyphagia, polyuria, weight gain, weight loss, other. Neuro: Denies: bladder dysfunction, bowel dysfunction, change in LOC, confusion, dizziness, focal weakness, gait problem, headach e, lightheaded, numbness, seizure, slurred speech, spinning sensation, syn cope, unable to speak, vision change, weakness, other. Psych: Denies: agitation, anxiety, auditory hallucinati on, change in mental status, confusion, delusional, depre ssion, homicidal ideation, hostile, insomnia, stress , suicidal ideation, visual hallucination, other . Objective VS/I O: Last Documented: Result Date Time Pulse Ox 94 06/15 648 B/P 123/76 06/15 648 B/P Mean 91.6 06/15 648 O2 Delivery Room air 06/15 648 Temp 97.9 01/29 0649 Pulse 107 06/15 0649 Resp 18 06/15 0649 24 hour I O ending at 0700: 06/15 0700 06/14 1900 Intake Total 1804.00 3396.00 Output Total Balance 1804.00 3396.00 Intake, IV 1804.00 2556.00 Intake, Oral 840 Number 0 Bowel Movements Number Voids 1 Patient Weight Weight (lb): Weight (oz): Weight (kg): 78.600 General appearance: alert, awake, oriented Cardiovascular: regular rate rhythm Respiratory: clear to auscultation Abdomen: soft (ttp) Extremities: warm, moves all Musculoskeletal: full range of motion Neuro/AIRLINE COUNTER AGENT: alert, oriented X 3 Results Findings/Data: Laboratory Tests: 06/15 06/15 06/14 06/14 1127 0611 2033 1618 Chemistry POC Glucose (70 - 105 mg/dL) 171 H 191 H 188 H 180 H Recent Impressions: RADIOLOGY - XR ABDOMEN 1V (KUB) 06/14 2222 Report Impression - Status: SIGNED Entered: 06/14/20192238 IMPRESSION: No acute findings in the abdomen or pelvis. Impression By: Yakov - MEAGAN GONZALES MD Diagnosis, Assessment Plan Free Text DxA P Notes Free Text DxA P Notes: 38 yo HM with DM, gastroparesis with gas tric pacemaker, pain out of proportion to exam -pain management consult -agree with current management -trial of erythromycin if reglan not improving s ymptoms -will check for acute intermittent porphyria (Ur ine PBG, total porphyrins and creatinine) -I have no further recommendations. 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 He has been referred to [facility] in the past, has had an intestinal stimulator, has had ____ of treatment for the gastroparesis, presumably associated to his diabetes mellitus type 1, but has a long periods of refractory symptomatology following as a year an d then has frequent episodic events such is the case now where he comes in wi th severe diffuse gastric abdominal pain, ____ melena, hematochezia, fever , chills, nausea, vomiting, dysuria, or frequency. He has had a nerve stimul ator implanted as well as a cholecystectomy in the past. ALLERGIES: HE IS NOT ALLERGIC TO REGLAN PREVI OUSLY STATED. SOCIAL HISTORY: No alcohol, tobacco, or drugs. 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 REVIEW OF SYSTEMS: HEAD, EYES, EARS, NOSE, AND THROAT: Normocephali c. PERRLA. EOMI. Well-hydrated mucosa. NECK: Supple. LUNGS: Clear. HEART: Regular rhythm. ABDOMEN: Benign. EXTREMITIES: Free of lesions. LABORATORY DATA: Diagnostic studies have been re viewed. ASSESSMENT: The patient with severe abdominal pa in. PLAN: We will initiate Reglan, Zofran, Benadryl, n.p.o. status, IV hydration, analgesics, and GI consultation. Dictated By: Josh Fox MD WT: HP:HSARAH/ARTHUR/NTS Conf#: [id number]/DID#: [id number] Authenticated by Josh Berry MD On 06/18/19 03:18:17 PM PATIENT NAME: JAYDENRADHA Heller 8306 at 1518 PATIENT NAME: RADHA CARPENTER Arron 8306 2019-06-13 17:39:00-00:00 [id number] [address] PATIENT NAME: RADHA CARPENTER ADMIT DATE: ACCOUNT NO: [id number] ROOM NO: [facility] AGE: 38 REPORT TYPE: ELECTROCARDIOGRAM SEX: M : 84 ADMITTING PHYSICIAN:Josh Norwood ATTENDING PHYSICIAN:Josh Norwood Order: [id number] Test Reason : ABD PAIN Test Date/Time Stamp: ThuJun 13 2019 17:39:09 Blood Pressure : / mmHG Vent. Rate : 128 BPM Atrial Rate : 128 BPM P-R Int : 120 ms QRS Dur : 074 ms QT Int : 308 ms P-R-T Axes : 066 076 063 degree s QTc Int : 449 ms Sinus tachycardia Possible Left atrial enlargement Borderline ECG When compared with ECG of 01-JUN-2019 13:22, (Un confirmed) No significant change was found Confirmed by MD ARRIAGA JORGE ([id number]) on 06/15/19 6:50:35 PM Referred By: Self Referred Confirmed by:GILSON GONZALEZ MD at 1851 PATIENT NAME: RADHA CARPENTER 8306 2019-06-13 17:28:00-00:00 [facility] EMERGENCY PROVIDER REPORT REPORT#:[id number] REPORT STATUS: Signed DATE:06/13/19 TIME: 1727 PATIENT: RADHA CARPENTER UNIT #: [id number] ROOM/BED: AGE: 38 SEX: M PCP PHYS: Galindo Chris MD SERVICE AUTHOR: Gilson Arriaga MD * ALL edits or amendments must be made on the el [facility]/computer document * HPI-Abd Pain M Under 40 General Confirmed Patient Yes Patient Type New patient Initial Greet Date/Time 06/13/19 1715 PCP Galindo Chris MD Presentation Chief Complaint Abdominal pain Hx Obtained From Patient Sudden in Onset? Yes Onset Occurred Today Symptom Duration Since onset, Constant Progression since Onset Unchanged, Constant Caused by No trauma by history Location Abdomen lower Quality Painful Radiation Does not radiate. Migration/Movement None Severity: Onset Mild Severity: Current Moderate Associated with Reports: Diarrhea, Nausea, Vomiting. Denies: Irasema k pain, Chest pain, Chills, Fever, Shortness of breath. Associated Other Pt denies other symptoms Exacerbated by Nothing Relieved by Nothing Free Text HPI Notes Free Text HPI Notes 38 y/o male patient with PMHx of DM, chr onic abdominal pain, and gastroparesis presents to the ED today for abdominal pain onset today in the morning. Patient states that his abdominal pa in has caused the patient to vomit X3 today and have diarrhea X3. Patient is experiencing ariel n to the lower abdomen. Patient states that he was supposed to have an appointm ent with his PCP (Dr. Chris) in 1 month to get referred to a edge inker uppers but coul d not stand the pain. Patient denies any chest pain, back pain, fever, and SOB . Patient has PSHx of cholecystectomy and has a nerve stimulator impla nted. Patient is allergic to clonidine and metoclopramide. Portions of this section were scribed by Aime Carrera on 06/13/19 at 1728 Risk-Abd Pain M Under 40 )( Torsion Risk factors reviewed Portions of this section were scribed by Aime Carrera on 06/13/19 at 1728 Review of Systems ROS Statements All systems rev neg except as marked. Focused Review of Systems Constitutional Denies: Chills, Fever, Weakness - generalized. Respiratory Denies: Cough, non-productive, Dyspnea on exerti on, Shortness of breath. Cardiovascular Denies: Chest pain, Dyspnea on exertion, Palpita tions. GI Reports: Abdominal pain, Diarrhea, Nausea, Vomit ing. Male Denies: Dysuria, Flank pain. Musculoskeletal Denies: Back pain, Extremity pain, Joint swellin g, Neck pain. Additional Review of Systems Eyes Denies: Blurred bilat, Discharge bilat, Eye pain bilat, Photophobia. Ears/Nose/Throat Denies: Ear drainage bilat, Ear ringing bilat, Earache bilat, Nasal congestion. Hematologic Denies: Bleeding, Bruising. Skin Denies: Abrasion, Itching, Jaundice, Laceration. Allergy/Immun Denies: Allergic reaction, Itching. Neurologic Denies: Change LOC, Dizziness, Generalized weakn ess. Portions of this section were scribed by Aime Carrera on 06/13/19 at 1728 Past Medical History - Adult Stated Complaint ABD PAIN Allergies Coded Allergies: clonidine (ANXIETY 05/20/19) metoclopramide (From REGLAN) (MUSCLE SPASMS 08/04) Home Medications Active Scripts INSULIN GLARGINE (LANTUS) 70 UNITS SUBQ BEDTIME Reported Medications NORTRIPTYLINE (PAMELOR) 50 MG PO BEDTIME METOPROLOL SUCC XL (TOPROL XL) 25 MG PO DAILY [MOTILIUM] 10 MG PO DAILY SIMVASTATIN (ZOCOR) 10 MG PO BEDTIME ZOLPIDEM (AMBIEN) 10 MG PO BEDTIME PANTOPRAZOLE DR (PROTONIX) 40 MG PO BEDTIME glipiZIDE (GLUCOTROL) 10 MG PO DAILY Review of Nursing Notes Rev avail, and agree Past Medical History: Reports: Diabetes mellitus. Additional Medical History Reports chronic abdominal pain and gastroparesis Past Surgical History: Reports: Cholecystectomy. Additional Surgical History Reports having a nerve stimulator Additional Family History Noncontributory Alcohol Use Denies EtOH use Drug Use Denies recreational drugs Smoking status for patients 13 years old or olde r: Unknown,if ever smoked Other Social History Employed, Good social suppo rt Portions of this section were scribed by Aime Carrera on 06/13/19 at 1728 Physical Exam Vital Signs Vital Signs First Documented: Result Date Time Pulse Ox 98 06/13 171 B/P 125/78 06/13 1712 B/P Mean 93 06/13 1712 Temp 37.1 06/13 1712 Pulse 129 06/13 171 Resp 20 06/13 1712 O2 Delivery Room air 06/13 1811 Last Documented: Result Date Time Pulse Ox 98 06/13 1811 B/P 142/88 06/13 1811 B/P Mean 106 06/13 1811 O2 Delivery Room air 06/13 1811 Temp 36.9 06/13 1811 Pulse 125 06/13 1811 Resp 18 06/13 1811 Review of Vital Signs Reviewed Focused PE General/Const General/Const Awake, Alert MS Head Head Normocephalic Eyes Eyes PERRL Ears/Nose/Throat Ears/Nose/Throat Airway patent, Mucous membrane s moist, Pharynx NL Resp/Chest Respiratory/Chest Breath sounds NL, Breath soun ds = bilat, No respiratory distress, No rales, No rhonchi, No wheezing Cardiovascular Cardiovascular Heart sounds NL, Peripheral circ ulation NL Heart Rate/Rhythm Tachycardia. Abdomen/GI Abdomen/GI Soft, BS normoactive, No distention Tenderness/Guarding/Rebound Tender epigastric, Tender periumbilical. MS Back Back Inspection NL, Non-tender, No CVA tenderne ss Skin Skin Color NL, Warm, Dry, Turgor NL Neurologic Neurologic Oriented X3, Speech NL, No motor def icits, No sensory deficits Portions of this section were scribed by Aime Carrera on 06/13/19 at 1728 Interpretation Diagnostics Lab Results Interpretation Results Laboratory Tests 06/13/19 1725: [Embedded Image Not Available] Laboratory Tests: 06/13 1724 Chemistry Sodium (136 - 145 mmol/L) 136 Potassium (3.5 - 5.1 mmol/L) 4.0 Chloride (98 - 107 mmol/L) 103 Carbon Dioxide (21 - 32 mmol/L) 27 BUN (7 - 18 mg/dL) 29 H Creatinine (0.67 - 1.17 mg/dL) 1.00 Estimated GFR (MDRD) (>=60) > 60.00 Glucose (70 - 100 mg/dL) 224 H Calcium (8.5 - 10.1 mg/dL) 9.8 Total Bilirubin (0.2 - 1.0 mg/dl) 0.5 AST (15 - 37 U/L) 26 ALT (12 - 78 U/L) 49 Alkaline Phosphatase (50 - 136 U/L) 66 Total Protein (6.4 - 8.2 g/dl) 8.1 Albumin (3.4 - 5.0 g/dl) 4.3 Lipase (73 - 393 U/L) 69 L Hematology WBC (4.5 - 11.0 X10(3)) 9.1 RBC (4.3 - 5.9 X10(6)) 4.41 Hgb (13.5 - 18.0 g/dL) 13.6 Hct (42.0 - 52.0 %) 40.1 L MCV (78 - 100 fl) 90.9 MCH (26.0 - 34.0 pg) 30.8 MCHC (30.0 - 37.0 g/dl) 33.9 RDW (11.5 - 14.5 %) 11.9 Plt Count (150 - 350 X10(3)) 301 MPV (8.7 - 11.4 fl) 9.9 Neut % (Auto) (36.0 - 66.0 %) 61.3 Lymph % (Auto) (16 - 50 %) 31.6 Dixie % (Auto) (0.0 - 13.0 %) 5.7 Eos % (Auto) (0.0 - 4.5 %) 0.6 Baso % (Auto) (0.0 - 1.5 %) 0.6 Immature Gran # (Auto) (0.00 - 0.03 X10(3)uL) 0 .02 Absolute Neuts (auto) (1.7 - 7.7 X10(3)) 5.6 Absolute Lymphs (auto) (0.7 - 4.0 X10(3)) 2.9 Absolute Monos (auto) (0.0 - 0.89 X10(3)) 0.5 Absolute Eos (auto) (0.0 - 0.6 X10(3)) 0.1 Absolute Basos (auto) (0.0 - 0.2 X10(3)) 0.1 Absolute Nucleated RBC (0.0 - 0.1 K/mm3) 0.00 Immature Gran % (0.0 - 2.0 %) 0.2 Nucleated RBC % (0 - 0.2 %) 0.0 Recent Impressions: RADIOLOGY - XR CHEST 1 V 06/13 1754 Report Impression - Status: SIGNED Entered: 06/13/2019 1822 IMPRESSION: No plain film evidence of acute cardiopulmonary abnormality within the given limitations above Impression By: [email or web address] - BURT Cortes ECG #1 Interpretation Text/Dict Note Possible Left atrial enlargement ECG Documented in MUSE Yes Date 06/13/19 Time 1739 Interpreted by ED physician NL ECG Interpretation Normal sinus rhythm, No acute ischemic changes, No STEMI, Normal ST waves, Normal T waves Rate 128 Rhythm Tachycardia Lab Studies CBC Interpretation CBC NL BMP/CMP Interpretation BMP/CMP normal except, BU N elevated Radiography X-Ray Chest View Portable NL CXR Findings No acute disease, No infiltrate Portions of this section were scribed by Aime Carrera on 06/13/19 at 1728 Re-Evaluation MDM )( Re-Evaluation/Progress #1 )( Re-Eval Status Unchanged ED Course Medication(s) Ordered Medication(s) Ordered: Central Nervous System Agents Sig/Sima Start time Last Medication Dose Route Stop Time Status Admin Morphine Sulfate 4 MG Q4H PRN PRN 06/13 1830 UN V IV 06/18 1831 Morphine Sulfate 4 MG X1ED STA 06/13 1815 DC IV 06/13 1816 1821 Meperidine HCl 25 MG X1ED STA 06/13 1724 DC IV 06/13 1725 1744 Electrolytic, Caloric, And Yumiko Sig/Sima Start time Last Medication Dose Route Stop Time Status Admin Dextrose/Water 25 ML ASDIR PRN 06/13 1830 UNV Device 1 SYRINGE IV 07/13 1831 Sodium Chloride 1,000 ML .Q6H40M 06/13 1830 AC IV 07/13 1831 Sodium Chloride 1,000 ML X1ED STA 06/13 1816 AC 06/13 IV 06/13 1915 1821 Sodium Chloride 1,000 ML X1ED STA 06/13 1723 DC 06/13 IV 06/13 1822 1744 Gastrointestinal Drugs Sig/Sima Start time Last Medication Dose Route Stop Time Status Admin Ondansetron HCl 4 MG Q4H PRN PRN 06/13 1830 UNV IV 07/13 1831 Ondansetron HCl 4 MG X1ED STA 06/13 1815 DC IV 06/13 1816 1820 Ondansetron HCl 4 MG X1ED STA 06/13 1724 DC IV 06/13 1725 1744 Hormones And Synthetic Substit Sig/Sima Start time Last Medication Dose Route Stop Time Status Admin Insulin Human Regular See Dose AC HS 06/13 2100 UNV Insts (1) SUBQ 07/13 2101 Glucagon 1 MG ASDIR PRN 06/13 1830 AC IM 07/13 1831 Insulin Human Regular 8 UNIT X1ED STA 06/13 18 08 DC 06/13 IV 06/13 1809 1828 Dose Instructions: (1)Insulin Human Regular: SLIDING SCALE Portions of this section were scribed by Aime Carrera on 06/13/19 at 1728 Patient Discharge Departure Vital Signs/Condition Vital Signs First Documented: Result Date Time Pulse Ox 98 06/13 1713 B/P 125/78 06/13 1713 B/P Mean 93 06/13 1712 Temp 37.1 06/13 1712 Pulse 129 06/13 1713 Resp 20 06/13 1713 O2 Delivery Room air 06/13 1811 Last Documented: Result Date Time Pulse Ox 98 06/13 1811 B/P 142/88 06/13 1811 B/P Mean 106 06/13 1811 O2 Delivery Room air 06/13 1811 Temp 36.9 06/13 1811 Pulse 125 06/13 1811 Resp 18 06/13 1811 All vital signs available at the time of this en try have been reviewed. Clinical Impression Clinical Impression Primary Impression: Gastroparesis Secondary Impressions: Diabetes mellitus, Epigas tric pain, Vomiting Disposition Decision Admit Admit Physician Hospitalist Request Time 1811 )( Admission Accepts Yes )( Accepted Time 1814 Discharge/Care Plan Counseled Regarding Need for admission Supervising Physician Note Scribe Statement Ishaan Carrera, 06/13/19 1730, scribing fo r and in the presence of [Gilson Arriaga MD]. Signed By: Ishaan Carrera, 06/13/19 1730 Provider Scribed Statement I personally performed the s ervices described in this documentation and reviewed the documentation that was dictated to the scrib e(s) in my presence, and it accurately records my words and actions. Gilson Arriaga MD, 06/13/19 Portions of this section were scribed by Aime Carrera on 06/13/19 at 1728 at 1787 RPT #:[id number] END OF REPORT 2019-06-03 20:05:00-00:00 [facility] Hospitalist Progress Note REPORT#:[id number] REPORT STATUS: Signed DATE:06/03/19 TIME: 2004 PATIENT: RADHA CARPENTER UNIT #: [id number] ROOM/BED: [facility]-A : 82 AGE: 38 SEX: M ATTEND: Alin Leblanc MD ADM AUTHOR: Kelsey Landaverde APN * ALL edits or amendments must be made on the el [facility]/computer document * Subjective Chief Complaint: Discharge Note: PMD - Galindo Chris MD The patient is a 38 year old male who presented with acute nausea and vomiting, abodminal pain, with active gastroparesis. Patie nt was treated conservatively with IV hydration, gradual diet advancement, pro kinetics and analgesics. Patient stable for discharge home on previous ho me medications and to take Motillium 10mg tab po TID before meals. HPI: The patient is resting in bed no distress, comfo rtable and no severe pain. He has tolerated meals and wants to go home. Review of Systems GI: Reports: nausea. Denies: abdominal pain, diarrhe a, vomiting. All systems rev neg: except as marked (see HPI) Objective General VS/I O: Vital Signs: Date Time Temp Pulse Resp B/P B/P Pulse O2 O2 F low FiO2 Mean Ox Delivery Rate 06/03 1825 97.7 104 18 145/91 108.8 98 Room air 06/03 1406 97.9 112 18 157/109 124.7 96 Room ai r 06/03 0603 98.2 107 16 110/74 85.9 99 Room air 06/03 0603 98.2 107 16 110/74 85.9 99 Room air 06/02 2128 97.7 112 18 139/82 101.2 98 Room air 06/02 2128 97.7 112 18 139/82 101.2 98 Room ai r 24 hour I O ending at 0700: 06/03 0700 06/02 1900 Intake Total 120 0 Output Total 1475 400 Balance -1355 -400 Intake, Oral 120 0 Number 0 Bowel Movements Number Voids 3 0 Output, Urine 1475 400 Patient Weight Weight (lb): Weight (oz): Weight (kg): 79.545 Medications: Active Meds + DC'd Last 24 Hrs Pantoprazole 40 MG BEDTIME PO Zolpidem Tartrate 10 MG BEDTIME PO Erythromycin Lactobionate 250 MG Q6HR IV Sodium Chloride 100 ML Piperacillin Sod/Tazobactam Sod 3.375 GM Q8HR IV (CAN) Sodium Chloride 100 ML Q8HR IV (DC) Morphine Sulfate 2 MG Q4H PRN PRN IV Patient Own Medication 1 EACH DAILY PO (PEND) Insulin Human Regular SLIDING SCALE AC HS SUBQ Dextrose/Water 25 ML ASDIR PRN IV Device 1 SYRINGE Glucagon 1 MG ASDIR PRN IM Ketorolac Tromethamine 15 MG Q6H PRN PRN IV Undefined Medication 30 UNIT BEDTIME SUBQ Device 1 SYRINGE Nortriptyline HCl 50 MG BEDTIME PO Acetaminophen 650 MG Q6H PRN PRN PO Famotidine 20 MG DAILY PO (DC) Hydralazine HCl 10 MG Q4H PRN PRN IV Lorazepam 0.5 MG Q6H PRN PRN IV Metoprolol Succinate 25 MG DAILY PO Ondansetron HCl 4 MG Q6H PRN PRN IV Sodium Chloride 1,000 ML .Q10H IV Physical Exam General appearance: alert, awake, oriented Head/Eyes: atraumatic, clear cornea, EOMI, keyonna l conjunctiva/sclera, normal eyelids/periorb., normocephalic, PERRL ENT: normal dentition, normal ear left, normal e ar right, normal nose, normal pharynx, normal sinus Neck: full range of motion, non-tender, normal thyroid, supple/no meningismus, no bruit/NL carotids, no JVD, no masses or swell ing Cardiovascular: normal capillary refill, regular rate rhythm Respiratory: aerating well, no distress Abdomen: non-tender, normal bowel sounds , soft, no distention, no guarding, no hernial, no mass/organomegaly, no rebound Extremities: moves all, normal capillary refill, normal range of motion, no edema Musculoskeletal: normal inspection Skin: dry, intact Results Findings/Data: Laboratory Tests 06/03 06/03 06/03 06/02 1627 1140 0626 2246 Chemistry POC Glucose (70 - 105 mg/dL) 195 H 254 H 150 H 214 H Laboratory Tests 06/03 0742 Toxicology Ketones (NEGATIVE mg/dl) NEGATIVE Laboratory Tests 06/03 0742 Urines Urine Color (YELLOW) Yellow Urine Appearance (CLEAR) CLOUDY Urine pH (4.6 - 8.0) 5.0 Ur Specific [place] (1.001 - 1.035) 1.020 Urine Protein (NEGATIVE mg/dl) NEGATIVE Urine Glucose (UA) (NORMAL mg/dl) 150 H Urine Blood (NEGATIVE /UL) NEGATIVE Urine Nitrite (NEGATIVE) NEGATIVE Urine Bilirubin (NEGATIVE mg/dl) NEGATIVE Urine Urobilinogen (NORMAL mg/dl) NORMAL Ur Leukocyte Esterase (NEGATIVE /UL) 250 H Urine RBC (0 - 5 #/hpf) 0-2 Urine WBC (0 - 5 #/hpf) 11-25 H Ur Epithelial Cells (NEG,FEW /hpf) 1+ H Urine Bacteria (NEGATIVE /hpf) 1+ H Hyaline Casts (0 - 2 #/lpf) 6-10 H Urine Mucus (NEG,FEW /hpf) 3+ H Urine Comment CLN CATCH Diagnosis, Assessment Plan Free Text DxA P Notes Free Text DxA P Notes: Presented with abdominal pain, nausea and vomiti ng Admitted with Gastroparesis T1DM CT evidence of enteritis CT evidence of cystitis Tachycardia Plan Discharge the patient home in stable and improve d condition with reconciled medications. Low fat non greasy diet. Hydration, and prokinetic medications. Follow up with PMD in 3 days. Follow up with GI Dr. Kang outpatient. at 1736 RPT #:[id number] END OF REPORT 2019-06-03 20:05:00-00:00 [facility] Hospitalist Progress Note REPORT#:[id number] REPORT STATUS: Signed DATE:06/03/19 TIME: 2004 PATIENT: RADHA CARPENTER UNIT #: [id number] ROOM/BED: [address] : [address] AGE: 38 SEX: M ATTEND: Alin Leblanc MD ADM AUTHOR: Kelsey Landaverde * ALL edits or amendments must be made on the el [facility]/computer document * Kelsey Landaverde. 06/03/19 2005: Subjective Chief Complaint: Discharge Note: PMD - Galindo Chris MD The patient is a 38 year old male who presented with acute nausea and vomiting, abodminal pain, with active gastroparesis. Patie nt was treated conservatively with IV hydration, gradual diet advancement, pro kinetics and analgesics. Patient stable for discharge home on previous ho me medications and to take Motillium 10mg tab po TID before meals. HPI: The patient is resting in bed no distress, comfo rtable and no severe pain. He has tolerated meals and wants to go home. Review of Systems GI: Reports: nausea. Denies: abdominal pain, diarrhe a, vomiting. All systems rev neg: except as marked (see HPI) Objective General VS/I O: Vital Signs: Date Time Temp Pulse Resp B/P B/P Pulse O2 O2 F low FiO2 Mean Ox Delivery Rate 06/03 1825 97.7 104 18 145/91 108.8 98 Room ai r 06/03 1406 97.9 112 18 157/109 124.7 96 Room ai r 06/03 0603 98.2 107 16 110/74 85.9 99 Room air 06/03 0603 98.2 107 16 110/74 85.9 99 Room air 06/02 2128 97.7 112 18 139/82 101.2 98 Room air 06/02 2128 97.7 112 18 139/82 101.2 98 Room air 24 hour I O ending at 0700: 06/03 0700 06/02 1900 Intake Total 120 0 Output Total 1475 400 Balance -1355 -400 Intake, Oral 120 0 Number 0 Bowel Movements Number Voids 3 0 Output, Urine 1475 400 Patient Weight Weight (lb): Weight (oz): Weight (kg): 79.545 Medications: Active Meds + DC'd Last 24 Hrs Pantoprazole 40 MG BEDTIME PO Zolpidem Tartrate 10 MG BEDTIME PO Erythromycin Lactobionate 250 MG Q6HR IV Sodium Chloride 100 ML Piperacillin Sod/Tazobactam Sod 3.375 GM Q8HR IV (CAN) Sodium Chloride 100 ML Q8HR IV (DC) Morphine Sulfate 2 MG Q4H PRN PRN IV Patient Own Medication 1 EACH DAILY PO (PEND) Insulin Human Regular SLIDING SCALE AC HS SUBQ Dextrose/Water 25 ML ASDIR PRN IV Device 1 SYRINGE Glucagon 1 MG ASDIR PRN IM Ketorolac Tromethamine 15 MG Q6H PRN PRN IV Undefined Medication 30 UNIT BEDTIME SUBQ Device 1 SYRINGE Nortriptyline HCl 50 MG BEDTIME PO Acetaminophen 650 MG Q6H PRN PRN PO Famotidine 20 MG DAILY PO (DC) Hydralazine HCl 10 MG Q4H PRN PRN IV Lorazepam 0.5 MG Q6H PRN PRN IV Metoprolol Succinate 25 MG DAILY PO Ondansetron HCl 4 MG Q6H PRN PRN IV Sodium Chloride 1,000 ML .Q10H IV Physical Exam General appearance: alert, awake, oriented Head/Eyes: atraumatic, clear cornea, EOMI, keyonna l conjunctiva/sclera, normal eyelids/periorb., normocephalic, PERRL ENT: normal dentition, normal ear left, normal e ar right, normal nose, normal pharynx, normal sinus Neck: full range of motion, non-tender, normal thyroid, supple/no meningismus, no bruit/NL carotids, no JVD, no masses or swell ing Cardiovascular: normal capillary refill, regular rate rhythm Respiratory: aerating well, no distress Abdomen: non-tender, normal bowel sounds , soft, no distention, no guarding, no hernial, no mass/organomegaly, no rebound Extremities: moves all, normal capillary refill, normal range of motion, no edema Musculoskeletal: normal inspection Skin: dry, intact Results Findings/Data: Laboratory Tests 06/03 06/03 06/03 06/02 1627 1140 0626 2246 Chemistry POC Glucose (70 - 105 mg/dL) 195 H 254 H 150 H 214 H Laboratory Tests 06/03 0742 Toxicology Ketones (NEGATIVE mg/dl) NEGATIVE Laboratory Tests 06/03 0742 Urines Urine Color (YELLOW) Yellow Urine Appearance (CLEAR) CLOUDY Urine pH (4.6 - 8.0) 5.0 Ur Specific [place] (1.001 - 1.035) 1.020 Urine Protein (NEGATIVE mg/dl) NEGATIVE Urine Glucose (UA) (NORMAL mg/dl) 150 H Urine Blood (NEGATIVE /UL) NEGATIVE Urine Nitrite (NEGATIVE) NEGATIVE Urine Bilirubin (NEGATIVE mg/dl) NEGATIVE Urine Urobilinogen (NORMAL mg/dl) NORMAL Ur Leukocyte Esterase (NEGATIVE /UL) 250 H Urine RBC (0 - 5 #/hpf) 0-2 Urine WBC (0 - 5 #/hpf) 11-25 H Ur Epithelial Cells (NEG,FEW /hpf) 1+ H Urine Bacteria (NEGATIVE /hpf) 1+ H Hyaline Casts (0 - 2 #/lpf) 6-10 H Urine Mucus (NEG,FEW /hpf) 3+ H Urine Comment CLN CATCH Diagnosis, Assessment Plan Free Text DxA P Notes Free Text DxA P Notes: Presented with abdominal pain, nausea and vomiti ng Admitted with Gastroparesis T1DM CT evidence of enteritis CT evidence of cystitis Tachycardia Plan Discharge the patient home in stable and improve d condition with reconciled medications. Low fat non greasy diet. Hydration, and prokinetic medications. Follow up with PMD in 3 days. Follow up with GI Dr. Kang outpatient. Nathan Leblanc 06/06/19 2108: Attestations Physician Attestation Agree w/findings plan: 06/03/2019 I discussed the findings, diagnostic homar dies, interventions and treatment plan with Kelsey Landaverde NP. I reviewed the clinical no moo and test results. I agree with the assessment, management, and disposition as presented by Kelsey Landaverde NP. Nathan Leblanc MD at 1736 RPT #:[id number] END OF REPORT 2019-06-03 20:05:00-00:00 [facility] Hospitalist Progress Note REPORT#:[id number] REPORT STATUS: Signed DATE:06/03/19 TIME: 2004 PATIENT: RADHA CARPENTER UNIT #: [id number] ROOM/BED: [address] : [address] AGE: 38 SEX: M ATTEND: Alin Leblanc MD ADM AUTHOR: Kelsey Landaverde APN * ALL edits or amendments must be made on the el [facility]/computer document * Kelsey Landaverde. 06/03/192004: Subjective Chief Complaint: Discharge Note: PMD - Galindo Chris MD The patient is a 38 year old male who presented with acute nausea and vomiting, abodminal pain, with active gastroparesis. Patie nt was treated conservatively with IV hydration, gradual diet advancement, pro kinetics and analgesics. Patient stable for discharge home on previous ho me medications and to take Motillium 10mg tab po TID before meals. HPI: The patient is resting in bed no distress, comfo rtable and no severe pain. He has tolerated meals and wants to go home. Review of Systems GI: Reports: nausea. Denies: abdominal pain, diarrhe a, vomiting. All systems rev neg: except as marked (see HPI) Objective General VS/I O: Vital Signs: Date Time Temp Pulse Resp B/P B/P Pulse O2 O2 F low FiO2 Mean Ox Delivery Rate 06/03 1825 97.7 104 18 145/91 108.8 98 Room air 06/03 1406 97.9 112 18 157/109 124.7 96 Room ai r 06/03 0603 98.2 107 16 110/74 85.9 99 Room air 06/03 06 98.2 107 16 110/74 85.9 99 Room air 06/02 2128 97.7 112 18 139/82 101.2 98 Room air 06/02 2128 97.7 112 18 139/82 101.2 98 Room air 24 hour I O ending at 0700: 06/03 0700 06/02 1900 Intake Total 120 0 Output Total 1475 400 Balance -1355 -400 Intake, Oral 120 0 Number 0 Bowel Movements Number Voids 3 0 Output, Urine 1475 400 Patient Weight Weight (lb): Weight (oz): Weight (kg): 79.545 Medications: Active Meds + DC'd Last 24 Hrs Pantoprazole 40 MG BEDTIME PO Zolpidem Tartrate 10 MG BEDTIME PO Erythromycin Lactobionate 250 MG Q6HR IV Sodium Chloride 100 ML Piperacillin Sod/Tazobactam Sod 3.375 GM Q8HR IV (CAN) Sodium Chloride 100 ML Q8HR IV (DC) Morphine Sulfate 2 MG Q4H PRN PRN IV Patient Own Medication 1 EACH DAILY PO (PEND) Insulin Human Regular SLIDING SCALE AC HS SUBQ Dextrose/Water 25 ML ASDIR PRN IV Device 1 SYRINGE Glucagon 1 MG ASDIR PRN IM Ketorolac Tromethamine 15 MG Q6H PRN PRN IV Undefined Medication 30 UNIT BEDTIME SUBQ Device 1 SYRINGE Nortriptyline HCl 50 MG BEDTIME PO Acetaminophen 650 MG Q6H PRN PRN PO Famotidine 20 MG DAILY PO (DC) Hydralazine HCl 10 MG Q4H PRN PRN IV Lorazepam 0.5 MG Q6H PRN PRN IV Metoprolol Succinate 25 MG DAILY PO Ondansetron HCl 4 MG Q6H PRN PRN IV Sodium Chloride 1,000 ML .Q10H IV Physical Exam General appearance: alert, awake, oriented Head/Eyes: atraumatic, clear cornea, EOMI, keyonna l conjunctiva/sclera, normal eyelids/periorb., normocephalic, PERRL ENT: normal dentition, normal ear left, normal e ar right, normal nose, normal pharynx, normal sinus Neck: full range of motion, non-tender, normal thyroid, supple/no meningismus, no bruit/NL carotids, no JVD, no masses or swell ing Cardiovascular: normal capillary refill, regular rate rhythm Respiratory: aerating well, no distress Abdomen: non-tender, normal bowel sounds , soft, no distention, no guarding, no hernial, no mass/organomegaly, no rebound Extremities: moves all, normal capillary refill, normal range of motion, no edema Musculoskeletal: normal inspection Skin: dry, intact Results Findings/Data: Laboratory Tests 06/03 06/03 06/03 06/02 1627 1140 0626 2246 Chemistry POC Glucose (70 - 105 mg/dL) 195 H 254 H 150 H 214 H Laboratory Tests 06/03 0742 Toxicology Ketones (NEGATIVE mg/dl) NEGATIVE Laboratory Tests 06/03 0742 Urines Urine Color (YELLOW) Yellow Urine Appearance (CLEAR) CLOUDY Urine pH (4.6 - 8.0) 5.0 Ur Specific [place] (1.001 - 1.035) 1.020 Urine Protein (NEGATIVE mg/dl) NEGATIVE Urine Glucose (UA) (NORMAL mg/dl) 150 H Urine Blood (NEGATIVE /UL) NEGATIVE Urine Nitrite (NEGATIVE) NEGATIVE Urine Bilirubin (NEGATIVE mg/dl) NEGATIVE Urine Urobilinogen (NORMAL mg/dl) NORMAL Ur Leukocyte Esterase (NEGATIVE /UL) 250 H Urine RBC (0 - 5 #/hpf) 0-2 Urine WBC (0 - 5 #/hpf) 11-25 H Ur Epithelial Cells (NEG,FEW /hpf) 1+ H Urine Bacteria (NEGATIVE /hpf) 1+ H Hyaline Casts (0 - 2 #/lpf) 6-10 H Urine Mucus (NEG,FEW /hpf) 3+ H Urine Comment CLN CATCH Diagnosis, Assessment Plan Free Text DxA P Notes Free Text DxA P Notes: Presented with abdominal pain, nausea and vomiti ng Admitted with Gastroparesis T1DM CT evidence of enteritis CT evidence of cystitis Tachycardia Plan Discharge the patient home in stable and improve d condition with reconciled medications. Low fat non greasy diet. Hydration, and prokinetic medications. Follow up with PMD in 3 days. Follow up with GI Dr. Kang outpatient. Nathan Leblanc 06/06/198: Attestations Physician Attestation Agree w/findings plan: 06/03/2019 I discussed the findings, diagnostic homar dies, interventions and treatment plan with Kelsey Landaverde NP. I reviewed the clinical no moo and test results. I agree with the assessment, management, and disposition as presented by Kelsey Landaverde NP. Nathan Leblanc MD at 1736 at 2112 RPT #:[id number] END OF REPORT 2019-06-02 18:27:00-00:00 [facility] Hospitalist Progress Note REPORT#:[id number] REPORT STATUS: Signed DATE:06/02/19 TIME: 1826 PATIENT: RADHA CARPENTER UNIT #: [id number] ROOM/BED: [address] : 82 AGE: 38 SEX: M ATTEND: Alin Leblanc MD ADM AUTHOR: Kelsey Landaverde * ALL edits or amendments must be made on the [employer]/computer document * Subjective HPI: The patient resting in bed no distress, appears in visible pain some grimacing of face. Patient reports Toradol has not control led pain, asking for morphine IV. Patient did not void ove rnight and unable to do UA CS. RN reported 700cc on bladder scan. Orders were given for cid in and out. RN reports once patient saw the catheter he was able to void and voided 400cc urine. Sample sent. Patient denies any painful urination or hematuri a. No diarrhea. No bleeding. No vomiting but patient complains of nausea. Dotty erated some liquids. Review of Systems All systems rev neg: except as marked (see HPI) Objective General VS/I O: Vital Signs: Date Time Temp Pulse Resp B/P B/P Pulse O2 O2 F low FiO2 Mean Ox Delivery Rate 06/02 1825 97.3 97 18 126/81 96.1 98 Room air 06/02 1429 97.7 99 16 108/69 82.3 95 Room air 06/02 0618 97.9 94 16 99/64 75.6 96 Room air 06/01 2219 97.7 106 16 139/92 107.5 98 Room air 06/013 97.9 112 18 146/99 115.0 97 Room air 24 hour I O ending at 0700: 06/02 0700 06/01 1900 Intake Total 1410.00 Output Total Balance 1410.00 Intake, IV 1200.00 Intake, Oral 210 Number 0 Bowel Movements Number Voids 0 Output, Emesis Patient 175 lb Weight Weight Stated/Reported Measurement Method Patient Weight Weight (lb): Weight (oz): Weight (kg): 79.545 Medications: Active Meds + DC'd Last 24 Hrs Piperacillin Sod/Tazobactam Sod 3.375 GM Q8HR IV Sodium Chloride 100 ML Q8HR IV Morphine Sulfate 2 MG ONCE ONE IV (DC) Patient Own Medication 1 EACH DAILY PO (PEND) Insulin Human Regular SLIDING SCALE AC HS SUBQ Erythromycin Lactobionate 250 MG Q6HR IV (DC) Sodium Chloride 100 ML Dextrose/Water 25 ML ASDIR PRN IV Device 1 SYRINGE Glucagon 1 MG ASDIR PRN IM Ketorolac Tromethamine 15 MG Q6H PRN PRN IV Undefined Medication 30 UNIT BEDTIME SUBQ Device 1 SYRINGE Nortriptyline HCl 50 MG BEDTIME PO Acetaminophen 650 MG Q6H PRN PRN PO Famotidine 20 MG DAILY PO Hydralazine HCl 10 MG Q4H PRN PRN IV Lorazepam 0.5 MG Q6H PRN PRN IV Metoprolol Succinate 25 MG DAILY PO Ondansetron HCl 4 MG Q6H PRN PRN IV Sodium Chloride 1,000 ML .Q10H IV Sodium Chloride 1,000 ML .[id number] IV (DC) Results Findings/Data: Laboratory Tests 06/02 06/02 06/02 06/02 06/02 1625 1433 0930 0529 0529 Chemistry Sodium (136 - 145 mmol/L) 142 Potassium (3.5 - 5.1 mmol/L) 3.8 Chloride (98 - 107 mmol/L) 108 H Carbon Dioxide (21 - 32 mmol/L) 26 BUN (7 - 18 mg/dL) 34 H Creatinine (0.67 - 1.17 mg/dL) 1.00 Estimated GFR (MDRD) (>=60) > 60.00 Glucose (70 - 100 mg/dL) 184 H POC Glucose (70 - 105 mg/dL) 143 H 204 H 159 H Hemoglobin A1c (4.2 - 6.3 %) 12.2 H Estim Average Glucose (<126 MG/DL) 303 Calcium (8.5 - 10.1 mg/dL) 8.8 Total Bilirubin (0.2 - 1.0 mg/dl) 0.6 AST (15 - 37 U/L) 18 ALT (12 - 78 U/L) 27 Alkaline Phosphatase (50 - 136 U/L) 53 Total Protein (6.4 - 8.2 g/dl) 6.8 Albumin (3.4 - 5.0 g/dl) 3.6 Triglycerides (30 - 150 mg/dL) 241 H Cholesterol (0 - 200 mg/dL) 175 LDL Cholesterol, Calc (<100 mg/dl) 81 Non-HDL Cholesterol (<130 mg/dl) 129 HDL Cholesterol (40 - 59 mg/dL) 46 LDL/HDL Ratio (Ratio) 1.8 Lipase (73 - 393 U/L) 51 L 06/01 2355 Chemistry POC Glucose (70 - 105 mg/dL) 191 H Laboratory Tests 06/02 0529 Hematology WBC (4.5 - 11.0 X10(3)) 6.8 RBC (4.3 - 5.9 X10(6)) 4.08 L Hgb (13.5 - 18.0 g/dL) 12.6 L Hct (42.0 - 52.0 %) 37.5 L MCV (78 - 100 fl) 91.9 MCH (26.0 - 34.0 pg) 30.9 MCHC (30.0 - 37.0 g/dl) 33.6 RDW (11.5 - 14.5 %) 12.3 Plt Count (150 - 350 X10(3)) 266 MPV (8.7 - 11.4 fl) 10.2 Neut % (Auto) (36.0 - 66.0 %) 46.0 Lymph % (Auto) (16 - 50 %) 45.0 Dixie % (Auto) (0.0 - 13.0 %) 6.8 Eos % (Auto) (0.0 - 4.5 %) 1.6 Baso % (Auto) (0.0 - 1.5 %) 0.3 Immature Gran # (Auto) (0.00 - 0.03 X10(3)uL) 0 .02 Absolute Neuts (auto) (1.7 - 7.7 X10(3)) 3.1 Absolute Lymphs (auto) (0.7 - 4.0 X10(3)) 3.0 Absolute Monos (auto) (0.0 - 0.89 X10(3)) 0.5 Absolute Eos (auto) (0.0 - 0.6 X10(3)) 0.1 Absolute Basos (auto) (0.0 - 0.2 X10(3)) 0.0 Absolute Nucleated RBC (0.0 - 0.1 K/mm3) 0.00 Immature Gran % (0.0 - 2.0 %) 0.3 Nucleated RBC % (0 - 0.2 %) 0.0 Free Text Obj Notes Free Text Obj Notes: General appearance: agitated, alert, awake, no r espiratory distress Head/Eyes: atraumatic, clear cornea, EOMI, keyonna l conjunctiva/sclera, normal eyelids/periorb., normocephalic, PERRL ENT: normal dentition, normal ear left, normal e ar right, normal nose, normal pharynx, normal sinus Neck: full range of motion, non-tender, normal thyroid, supple/no meningismus, no bruit/NL carotids, no JVD, no masses or swell ing Cardiovascular: normal capillary refill, regular rate rhythm Respiratory: aerating well, no distress Abdomen: tenderness, normal bowel sounds , soft, no distention, no guarding, no hernial, no mass/organomegaly, no rebound Extremities: moves all, normal capillary refill, normal range of motion, no edema Musculoskeletal: normal inspection Skin: dry, intact Diagnosis, Assessment Plan Free Text DxA P Notes Free Text DxA P Notes: Presented with abdominal pain, nausea and vomiti ng Admitted with Gastroparesis T1DM CT evidence of enteritis CT evidence of cystitis Tachycardia Plan Admit the patient to medical floor Continue with selected home medications Continue with Motillium AC/HS SS insulin Diet clear liquids as tolerated advance UA CS result pending Toradol 15mg IV q 6hr PRN moderate pain Start Morphine 2mg IV q 4 hours PRN severe pain - discussed with patient to avoid use of morphine unless pain relent less as narcotics can sometimes worsen gastroparesis. Erythromycin 250mg IVPB q 6 hours Antiemetics with Zofran 4mg IV IV hydration Follow up lab work VTE prophylaxis Condition stable, prognosis fair See orders at 2253 RPT #:[id number] END OF REPORT 2019-06-02 18:27:00-00:00 [facility] Hospitalist Progress Note REPORT#:[id number] REPORT STATUS: Signed DATE:06/02/19 TIME: 1826 PATIENT: RADHA CARPENTER UNIT #: [id number] ROOM/BED: [address] : 82 AGE: 38 SEX: M ATTEND: Alin Leblanc MD ADM AUTHOR: Kelsey Landaverde APN * ALL edits or amendments must be made on the [employer]/computer document * Kelsey Landaverde. 06/02/191826: Subjective HPI: The patient resting in bed no distress, appears in visible pain some grimacing of face. Patient reports Toradol has not control led pain, asking for morphine IV. Patient did not void ove rnight and unable to do UA CS. RN reported 700cc on bladder scan. Orders were given for cid in and out. RN reports once patient saw the catheter he was able to void and voided 400cc urine. Sample sent. Patient denies any painful urination or hematuri a. No diarrhea. No bleeding. No vomiting but patient complains of nausea. To lerated some liquids. Review of Systems All systems rev neg: except as marked (see HPI) Objective General VS/I O: Vital Signs: Date Time Temp Pulse Resp B/P B/P Pulse O2 O2 F low FiO2 Mean Ox Delivery Rate 06/02 1824 97.3 97 18 126/81 96.1 98 Room air 06/02 1429 97.7 99 16 108/69 82.3 95 Room air 06/02 0618 97.9 94 16 99/64 75.6 96 Room air 06/019 97.7 106 16 139/92 107.5 98 Room air 06/01 2032 97.9 112 18 146/99 115.0 97 Room air 24 hour I O ending at 0700: 06/02 0700 06/01 1900 Intake Total 1410.00 Output Total Balance 1410.00 Intake, IV 1200.00 Intake, Oral 210 Number 0 Bowel Movements Number Voids 0 Output, Emesis Patient 175 lb Weight Weight Stated/Reported Measurement Method Patient Weight Weight (lb): Weight (oz): Weight (kg): 79.545 Medications: Active Meds + DC'd Last 24 Hrs Piperacillin Sod/Tazobactam Sod 3.375 GM Q8HR IV Sodium Chloride 100 ML Q8HR IV Morphine Sulfate 2 MG ONCE ONE IV (DC) Patient Own Medication 1 EACH DAILY PO (PEND) Insulin Human Regular SLIDING SCALE AC HS SUBQ Erythromycin Lactobionate 250 MG Q6HR IV (DC) Sodium Chloride 100 ML Dextrose/Water 25 ML ASDIR PRN IV Device 1 SYRINGE Glucagon 1 MG ASDIR PRN IM Ketorolac Tromethamine 15 MG Q6H PRN PRN IV Undefined Medication 30 UNIT BEDTIME SUBQ Device 1 SYRINGE Nortriptyline HCl 50 MG BEDTIME PO Acetaminophen 650 MG Q6H PRN PRN PO Famotidine 20 MG DAILY PO Hydralazine HCl 10 MG Q4H PRN PRN IV Lorazepam 0.5 MG Q6H PRN PRN IV Metoprolol Succinate 25 MG DAILY PO Ondansetron HCl 4 MG Q6H PRN PRN IV Sodium Chloride 1,000 ML .Q10H IV Sodium Chloride 1,000 ML .[id number] IV (DC) Results Findings/Data: Laboratory Tests 06/02 06/02 06/02 06/02 06/02 1625 1433 0930 0529 0529 Chemistry Sodium (136 - 145 mmol/L) 142 Potassium (3.5 - 5.1 mmol/L) 3.8 Chloride (98 - 107 mmol/L) 108 H Carbon Dioxide (21 - 32 mmol/L) 26 BUN (7 - 18 mg/dL) 34 H Creatinine (0.67 - 1.17 mg/dL) 1.00 Estimated GFR (MDRD) (>=60) > 60.00 Glucose (70 - 100 mg/dL) 184 H POC Glucose (70 - 105 mg/dL) 143 H 204 H 159 H Hemoglobin A1c (4.2 - 6.3 %) 12.2 H Estim Average Glucose (<126 MG/DL) 303 Calcium (8.5 - 10.1 mg/dL) 8.8 Total Bilirubin (0.2 - 1.0 mg/dl) 0.6 AST (15 - 37 U/L) 18 ALT (12 - 78 U/L) 27 Alkaline Phosphatase (50 - 136 U/L) 53 Total Protein (6.4 - 8.2 g/dl) 6.8 Albumin (3.4 - 5.0 g/dl) 3.6 Triglycerides (30 - 150 mg/dL) 241 H Cholesterol (0 - 200 mg/dL) 175 LDL Cholesterol, Calc (<100 mg/dl) 81 Non-HDL Cholesterol (<130 mg/dl) 129 HDL Cholesterol (40 - 59 mg/dL) 46 LDL/HDL Ratio (Ratio) 1.8 Lipase (73 - 393 U/L) 51 L 06/01 2355 Chemistry POC Glucose (70 - 105 mg/dL) 191 H Laboratory Tests 06/02 0529 Hematology WBC (4.5 - 11.0 X10(3)) 6.8 RBC (4.3 - 5.9 X10(6)) 4.08 L Hgb (13.5 - 18.0 g/dL) 12.6 L Hct (42.0 - 52.0 %) 37.5 L MCV (78 - 100 fl) 91.9 MCH (26.0 - 34.0 pg) 30.9 MCHC (30.0 - 37.0 g/dl) 33.6 RDW (11.5 - 14.5 %) 12.3 Plt Count (150 - 350 X10(3)) 266 MPV (8.7 - 11.4 fl) 10.2 Neut % (Auto) (36.0 - 66.0 %) 46.0 Lymph % (Auto) (16 - 50 %) 45.0 Dixie % (Auto) (0.0 - 13.0 %) 6.8 Eos % (Auto) (0.0 - 4.5 %) 1.6 Baso % (Auto) (0.0 - 1.5 %) 0.3 Immature Gran # (Auto) (0.00 - 0.03 X10(3)uL) 0.02 Absolute Neuts (auto) (1.7 - 7.7 X10(3)) 3.1 Absolute Lymphs (auto) (0.7 - 4.0 X10(3)) 3.0 Absolute Monos (auto) (0.0 - 0.89 X10(3)) 0.5 Absolute Eos (auto) (0.0 - 0.6 X10(3)) 0.1 Absolute Basos (auto) (0.0 - 0.2 X10(3)) 0.0 Absolute Nucleated RBC (0.0 - 0.1 K/mm3) 0.00 Immature Gran % (0.0 - 2.0 %) 0.3 Nucleated RBC % (0 - 0.2 %) 0.0 Free Text Obj Notes Free Text Obj Notes: General appearance: agitated, alert, awake, no r espiratory distress Head/Eyes: atraumatic, clear cornea, EOMI, keyonna l conjunctiva/sclera, normal eyelids/periorb., normocephalic, PERRL ENT: normal dentition, normal ear left, normal e ar right, normal nose, normal pharynx, normal sinus Neck: full range of motion, non-tender, normal thyroid, supple/no meningismus, no bruit/NL carotids, no JVD, no masses or swell ing Cardiovascular: normal capillary refill, regular rate rhythm Respiratory: aerating well, no distress Abdomen: tenderness, normal bowel sounds , soft, no distention, no guarding, no hernial, no mass/organomegaly, no rebound Extremities: moves all, normal capillary refill, normal range of motion, no edema Musculoskeletal: normal inspection Skin: dry, intact Diagnosis, Assessment Plan Free Text DxA P Notes Free Text DxA P Notes: Presented with abdominal pain, nausea and vomiti ng Admitted with Gastroparesis T1DM CT evidence of enteritis CT evidence of cystitis Tachycardia Plan Admit the patient to medical floor Continue with selected home medications Continue with Motillium AC/HS SS insulin Diet clear liquids as tolerated advance UA CS result pending Toradol 15mg IV q 6hr PRN moderate pain Start Morphine 2mg IV q 4 hours PRN severe pain - discussed with patient to avoid use of morphine unless pain relent less as narcotics can sometimes worsen gastroparesis. Erythromycin 250mg IVPB q 6 hours Antiemetics with Zofran 4mg IV IV hydration Follow up lab work VTE prophylaxis Condition stable, prognosis fair See orders Nathan Leblanc 06/03/19 1015: Attestations Physician Attestation Agree w/findings plan: 06/02/2019 I discussed the findings, diagnostic homar dies, interventions and treatment plan with Kelsey Landaverde NP. I reviewed the clinical no moo and test results. I agree with the assessment, management, and disposition as presented by Kelsey Landaverde NP. Nathan Leblanc MD at 2253 RPT #:[id number] END OF REPORT 2019-06-02 18:27:00-00:00 [facility] Hospitalist Progress Note REPORT#:[id number] REPORT STATUS: Signed DATE:06/02/19 TIME: 1826 PATIENT: RADHA CARPENTER UNIT #: [id number] ROOM/BED: [address] : 82 AGE: 38 SEX: M ATTEND: Alin Leblanc MD ADM AUTHOR: Kelsey Landaverde APN * ALL edits or amendments must be made on the [facility]/computer document * Kelsey Landaverde. 06/02/191826: Subjective HPI: The patient resting in bed no distress, appears in visible pain some grimacing of face. Patient reports Toradol has not control led pain, asking for morphine IV. Patient did not void ove rnight and unable to do UA CS. RN reported 700cc on bladder scan. Orders were given for cid in and out. RN reports once patient saw the catheter he was able to void and voided 400cc urine. Sample sent. Patient denies any painful urination or hematuri a. No diarrhea. No bleeding. No vomiting but patient complains of nausea. Dotty erated some liquids. Review of Systems All systems rev neg: except as marked (see HPI) Objective General VS/I O: Vital Signs: Date Time Temp Pulse Resp B/P B/P Pulse O2 O2 F low FiO2 Mean Ox Delivery Rate 06/02 1825 97.3 97 18 126/81 96.1 98 Room air 06/02 1429 97.7 99 16 108/69 82.3 95 Room air 06/02 0618 97.9 94 16 99/64 75.6 96 Room air 06/019 97.7 106 16 139/92 107.5 98 Room air 06/01 2033 97.9 112 18 146/99 115.0 97 Room air 24 hour I O ending at 0700: 06/02 0700 06/01 1900 Intake Total 1410.00 Output Total Balance 1410.00 Intake, IV 1200.00 Intake, Oral 210 Number 0 Bowel Movements Number Voids 0 Output, Emesis Patient 175 lb Weight Weight Stated/Reported Measurement Method Patient Weight Weight (lb): Weight (oz): Weight (kg): 79.545 Medications: Active Meds + DC'd Last 24 Hrs Piperacillin Sod/Tazobactam Sod 3.375 GM Q8HR IV Sodium Chloride 100 ML Q8HR IV Morphine Sulfate 2 MG ONCE ONE IV (DC) Patient Own Medication 1 EACH DAILY PO (PEND) Insulin Human Regular SLIDING SCALE AC HS SUBQ Erythromycin Lactobionate 250 MG Q6HR IV (DC) Sodium Chloride 100 ML Dextrose/Water 25 ML ASDIR PRN IV Device 1 SYRINGE Glucagon 1 MG ASDIR PRN IM Ketorolac Tromethamine 15 MG Q6H PRN PRN IV Undefined Medication 30 UNIT BEDTIME SUBQ Device 1 SYRINGE Nortriptyline HCl 50 MG BEDTIME PO Acetaminophen 650 MG Q6H PRN PRN PO Famotidine 20 MG DAILY PO Hydralazine HCl 10 MG Q4H PRN PRN IV Lorazepam 0.5 MG Q6H PRN PRN IV Metoprolol Succinate 25 MG DAILY PO Ondansetron HCl 4 MG Q6H PRN PRN IV Sodium Chloride 1,000 ML .Q10H IV Sodium Chloride 1,000 ML .[id number] IV (DC) Results Findings/Data: Laboratory Tests 06/02 06/02 06/02 06/02 06/02 1625 1433 0930 0529 0529 Chemistry Sodium (136 - 145 mmol/L) 142 Potassium (3.5 - 5.1 mmol/L) 3.8 Chloride (98 - 107 mmol/L) 108 H Carbon Dioxide (21 - 32 mmol/L) 26 BUN (7 - 18 mg/dL) 34 H Creatinine (0.67 - 1.17 mg/dL) 1.00 Estimated GFR (MDRD) (>=60) > 60.00 Glucose (70 - 100 mg/dL) 184 H POC Glucose (70 - 105 mg/dL) 143 H 204 H 159 H Hemoglobin A1c (4.2 - 6.3 %) 12.2 H Estim Average Glucose (<126 MG/DL) 303 Calcium (8.5 - 10.1 mg/dL) 8.8 Total Bilirubin (0.2 - 1.0 mg/dl) 0.6 AST (15 - 37 U/L) 18 ALT (12 - 78 U/L) 27 Alkaline Phosphatase (50 - 136 U/L) 53 Total Protein (6.4 - 8.2 g/dl) 6.8 Albumin (3.4 - 5.0 g/dl) 3.6 Triglycerides (30 - 150 mg/dL) 241 H Cholesterol (0 - 200 mg/dL) 175 LDL Cholesterol, Calc (<100 mg/dl) 81 Non-HDL Cholesterol (<130 mg/dl) 129 HDL Cholesterol (40 - 59 mg/dL) 46 LDL/HDL Ratio (Ratio) 1.8 Lipase (73 - 393 U/L) 51 L 06/01 2355 Chemistry POC Glucose (70 - 105 mg/dL) 191 H Laboratory Tests 06/02 0529 Hematology WBC (4.5 - 11.0 X10(3)) 6.8 RBC (4.3 - 5.9 X10(6)) 4.08 L Hgb (13.5 - 18.0 g/dL) 12.6 L Hct (42.0 - 52.0 %) 37.5 L MCV (78 - 100 fl) 91.9 MCH (26.0 - 34.0 pg) 30.9 MCHC (30.0 - 37.0 g/dl) 33.6 RDW (11.5 - 14.5 %) 12.3 Plt Count (150 - 350 X10(3)) 266 MPV (8.7 - 11.4 fl) 10.2 Neut % (Auto) (36.0 - 66.0 %) 46.0 Lymph % (Auto) (16 - 50 %) 45.0 Dixie % (Auto) (0.0 - 13.0 %) 6.8 Eos % (Auto) (0.0 - 4.5 %) 1.6 Baso % (Auto) (0.0 - 1.5 %) 0.3 Immature Gran # (Auto) (0.00 - 0.03 X10(3)uL) 0 .02 Absolute Neuts (auto) (1.7 - 7.7 X10(3)) 3.1 Absolute Lymphs (auto) (0.7 - 4.0 X10(3)) 3.0 Absolute Monos (auto) (0.0 - 0.89 X10(3)) 0.5 Absolute Eos (auto) (0.0 - 0.6 X10(3)) 0.1 Absolute Basos (auto) (0.0 - 0.2 X10(3)) 0.0 Absolute Nucleated RBC (0.0 - 0.1 K/mm3) 0.00 Immature Gran % (0.0 - 2.0 %) 0.3 Nucleated RBC % (0 - 0.2 %) 0.0 Free Text Obj Notes Free Text Obj Notes: General appearance: agitated, alert, awake, no r espiratory distress Head/Eyes: atraumatic, clear cornea, EOMI, keyonna l conjunctiva/sclera, normal eyelids/periorb., normocephalic, PERRL ENT: normal dentition, normal ear left, normal e ar right, normal nose, normal pharynx, normal sinus Neck: full range of motion, non-tender, normal thyroid, supple/no meningismus, no bruit/NL carotids, no JVD, no masses or swell ing Cardiovascular: normal capillary refill, regular rate rhythm Respiratory: aerating well, no distress Abdomen: tenderness, normal bowel sounds , soft, no distention, no guarding, no hernial, no mass/organomegaly, no rebound Extremities: moves all, normal capillary refill, normal range of motion, no edema Musculoskeletal: normal inspection Skin: dry, intact Diagnosis, Assessment Plan Free Text DxA P Notes Free Text DxA P Notes: Presented with abdominal pain, nausea and vomiti ng Admitted with Gastroparesis T1DM CT evidence of enteritis CT evidence of cystitis Tachycardia Plan Admit the patient to medical floor Continue with selected home medications Continue with Motillium AC/HS SS insulin Diet clear liquids as tolerated advance UA CS result pending Toradol 15mg IV q 6hr PRN moderate pain Start Morphine 2mg IV q 4 hours PRN severe pain - discussed with patient to avoid use of morphine unless pain relent less as narcotics can sometimes worsen gastroparesis. Erythromycin 250mg IVPB q 6 hours Antiemetics with Zofran 4mg IV IV hydration Follow up lab work VTE prophylaxis Condition stable, prognosis fair See orders Nathan Leblanc 06/03/19 1015: Attestations Physician Attestation Agree w/findings plan: 06/02/2019 I discussed the findings, diagnostic homar dies, interventions and treatment plan with Kelsey Landaverde NP. I reviewed the clinical no moo and test results. I agree with the assessment, management, and disposition as presented by Kelsey Landaverde NP. Nathan Leblanc MD at 2253 at 1022 RPT #:[id number] END OF REPORT 2019-06-01 18:38:00-00:00 [facility] Hospitalist History Physical REPORT#:[id number] REPORT STATUS: Signed DATE:06/01/19 TIME: 1837 PATIENT: RADHA CARPENTER UNIT #: [id number] ROOM/BED: [address] : [birth year] AGE: 38 SEX: M ATTEND: Alin Leblanc MD ADM AUTHOR: Kelsey Landaverde APN * ALL edits or amendments must be made on the [employer]/computer document * History of Present Illness HPI PCP: PCP: Galindo Chris MD HPI: The patient is a 38 year old male with history of T1DM treated with Lantus 30 units daily, Novol og 15 units TID meals, history of gastric stimulator for gastroparesis, cholecyst ectomy, who presents to ED with complaints of nauesa and vomiting associated with abdominal pain this morning about 0600. Patient reports having progressive nausea worsening over weekend. He uses Motillium 10mg tab TID for treatment. Reports EPS symptoms with reglan and needs coadministered Benadryl. Patient currently resti ng in ED stretcher bed no distress. He is visibly in pain. He admits Torad ol has not completely controlled his pain and asking for morphine. No diarrhea, constipation or bleeding. CT scan abdomen and pelvis noted possi ble enteritis and cystitis. Patient denies painful urination. History Past medical history: Reports: Diabetes mellitus. Additional medical history: Reports chronic abdominal pain and gastroparesis Past surgical history: Reports: Cholecystectomy. Additional surgical history: Reports having a nerve stimulator Additional family history: Noncontributory Alcohol use: Denies EtOH use Drug use: Denies recreational drugs Smoking status for patients 13 years old or olde r: Never Smoker Other social history: Employed, Good social supp ort Medication/Allergy-Vaccine Hx Home Medications: glipiZIDE (GLUCOTROL) 10 MG PO DAILY INSULIN GLARGINE (LANTUS) 70 UNITS SUBQ BEDTIME METOPROLOL SUCC XL (TOPROL XL) 25 MG PO DAILY [MOTILIUM] 10 MG PO DAILY NORTRIPTYLINE (PAMELOR) 50 MG PO BEDTIME PANTOPRAZOLE DR (PROTONIX) 40 MG PO BEDTIME SIMVASTATIN (ZOCOR) 10 MG PO BEDTIME ZOLPIDEM (AMBIEN) 10 MG PO BEDTIME Discontinued Medications FAMOTIDINE (PEPCID) 20 MG PO DAILY Discontinued reason: DC prior to admit Allergies: Coded Allergies: clonidine (ANXIETY 05/20/19) metoclopramide (From REGLAN) (MUSCLE SPASMS 08/04) Ambulatory status: Independent Review of Systems All systems rev neg: except as marked (see HPI) Objective General VS/I O: Vital Signs: Date Time Temp Pulse Resp B/P B/P Pulse O2 O2 F low FiO2 Mean Ox Delivery Rate 06/01 1740 98.1 121 19 128/71 90 99 Room air 06/01 1640 98.2 118 17 118/69 85 99 Room air 06/01 1535 98.1 122 18 127/64 85 99 Room air 06/01 1430 98.0 127 19 119/69 85 99 Room air 06/01 1323 97.8 131 18 115/68 83 99 Room air Patient Weight Weight (lb): Weight (oz): Weight (kg): 79.545 Medications: Active Meds + DC'd Last 24 Hrs Nortriptyline HCl 50 MG BEDTIME PO Acetaminophen 650 MG Q6H PRN PRN PO Famotidine 20 MG DAILY PO Hydralazine HCl 10 MG Q4H PRN PRN IV Lorazepam 0.5 MG Q6H PRN PRN IV Metoprolol Succinate 25 MG DAILY PO Ondansetron HCl 4 MG Q6H PRN PRN IV Sodium Chloride 1,000 ML .Q10H IV Sodium Chloride 1,000 ML .[id number] IV Sodium Chloride 1,000 ML X1ED STA IV (DC) Dicyclomine HCl 20 MG X1ED STA PO (DC) Diphenhydramine HCl 25 MG X1ED STA IV (DC) Haloperidol Lactate 5 MG X1ED STA IV (DCr) Morphine Sulfate 2 MG X1ED STA IV (DC) Ketorolac Tromethamine 15 MG X1ED STA IV (DC) Sodium Chloride 1,000 ML X1ED STA IV (DC) Ondansetron HCl 4 MG X1ED STA IV (DC) Physical Exam General appearance: agitated, alert, awake, no r espiratory distress Head/Eyes: atraumatic, clear cornea, EOMI, keyonna l conjunctiva/sclera, normal eyelids/periorb., normocephalic, PERRL ENT: normal dentition, normal ear left, normal e ar right, normal nose, normal pharynx, normal sinus Neck: full range of motion, non-tender, normal thyroid, supple/no meningismus, no bruit/NL carotids, no JVD, no masses or swell ing Cardiovascular: normal capillary refill, regular rate rhythm Respiratory: aerating well, no distress Abdomen: tenderness, normal bowel sounds , soft, no distention, no guarding, no hernial, no mass/organomegaly, no rebound Extremities: moves all, normal capillary refill, normal range of motion, no edema Musculoskeletal: normal inspection Skin: dry, intact Results Findings/Data: Laboratory Tests 06/01 1352 Chemistry Sodium (136 - 145 mmol/L) 135 L Potassium (3.5 - 5.1 mmol/L) 4.2 Chloride (98 - 107 mmol/L) 99 Carbon Dioxide (21 - 32 mmol/L) 26 BUN (7 - 18 mg/dL) 30 H Creatinine (0.67 - 1.17 mg/dL) 1.30 H Estimated GFR (MDRD) (>=60) > 60.00 Glucose (70 - 100 mg/dL) 363 H Calcium (8.5 - 10.1 mg/dL) 10.2 H Troponin I (0.00 - 0.045 ng/ml) <0.015 Lipase (73 - 393 U/L) 68 L Laboratory Tests 06/01 1352 Coagulation PT (8.7 - 12.1 SECONDS) 9.8 INR 0.9 APTT (22.8 - 34.4 seconds) 24.0 Laboratory Tests 06/01 1352 Hematology WBC (4.5 - 11.0 X10(3)) 9.0 RBC (4.3 - 5.9 X10(6)) 4.85 Hgb (13.5 - 18.0 g/dL) 14.9 Hct (42.0 - 52.0 %) 44.0 MCV (78 - 100 fl) 90.7 MCH (26.0 - 34.0 pg) 30.7 MCHC (30.0 - 37.0 g/dl) 33.9 RDW (11.5 - 14.5 %) 12.0 Plt Count (150 - 350 X10(3)) 320 MPV (8.7 - 11.4 fl) 10.3 Neut % (Auto) (36.0 - 66.0 %) 57.7 Lymph % (Auto) (16 - 50 %) 32.7 Dixie % (Auto) (0.0 - 13.0 %) 7.8 Eos % (Auto) (0.0 - 4.5 %) 1.1 Baso % (Auto) (0.0 - 1.5 %) 0.3 Immature Gran # (Auto) (0.00 - 0.03 X10(3)uL) 0 .04 H Absolute Neuts (auto) (1.7 - 7.7 X10(3)) 5.2 Absolute Lymphs (auto) (0.7 - 4.0 X10(3)) 3.0 Absolute Monos (auto) (0.0 - 0.89 X10(3)) 0.7 Absolute Eos (auto) (0.0 - 0.6 X10(3)) 0.1 Absolute Basos (auto) (0.0 - 0.2 X10(3)) 0.0 Absolute Nucleated RBC (0.0 - 0.1 K/mm3) 0.00 Immature Gran % (0.0 - 2.0 %) 0.4 Nucleated RBC % (0 - 0.2 %) 0.0 Radiology data: Recent Impressions: RADIOLOGY - XR CHEST 1 V 06/01 1434 Report Impression - Status: SIGNED Entered: 06/01/2019 1440 Impression: 1. No radiographic evidence of acute cardiopulmo nary disease. Impression By: Mely Slade M.D. CAT SCAN - CT ABD PELVIS W/O CONT 06/01 1646 Report Impression - Status: SIGNED Entered: 06/01/2019 1720 IMPRESSION: No evidence of intestinal or urinary obstruction . Gastric mucosa appears thickened which may be in part related to incomplete distention. There are stimulator lead s which extend to the anterior aspect of the stomach suggesting gastro paresis. Mildly thickened air-filled small bowel loops in the left upper quadrant. This appearance might be in part relat ed to peristalsis. However, focal enteritis is not excluded. Correl ate with symptomatology. Urinary bladder is partially distended. The blad callie wall, however, appears thickened. Superimposed inflammatory pro cess such as cystitis is not excluded. Correlate with urinalysis. Descending and sigmoid colon are decompressed wh ich accentuates wall thickness. No definite inflammatory process asso ciated with the colon. Other nonemergent findings described above. Impression By: Jamie Santos MD Diagnosis, Assessment Plan Free Text DxA P Notes Free Text DxA P Notes: Presented with abdominal pain, nausea and vomiti ng Admitted with Gastroparesis T1DM CT evidence of enteritis CT evidence of cystitis Tachycardia Plan Admit the patient to medical floor Continue with selected home medications Continue with Motillium AC/HS SS insulin Diet clear liquids as tolerated UA CS r/o UTI Toradol 15mg IV q 6hr PRN moderate to severe ariel n Proceed with Erythromycin 250mg IVPB q 6 hours Antiemetics with Zofran 4mg IV IV hydration Follow up lab work VTE prophylaxis Condition stable, prognosis fair See orders at 2243 RPT #:[id number] END OF REPORT 2019-06-01 18:38:00-00:00 [facility] Hospitalist History Physical REPORT#:[id number] REPORT STATUS: Signed DATE:06/01/19 TIME: 1838 PATIENT: RADHA CARPENTER UNIT #: [id number] ROOM/BED: [address] : [address] AGE: 38 SEX: M ATTEND: Alin Leblanc MD ADM AUTHOR: Kelsey Landaverde APN * ALL edits or amendments must be made on the [employer]/computer document * Kelsey Landaverde. 06/01/19 1838: History of Present Illness HPI PCP: PCP: Galindo Chris MD HPI: The patient is a 38 year old male with history of T1DM treated with Lantus 30 units daily, Novol og 15 units TID meals, history of gastric stimulator for gastroparesis, cholecyst ectomy, who presents to ED with complaints of nauesa and vomiting associated with abdominal pain this morning about 0600. Patient reports having progressive nausea worsening over weekend. He uses Motillium 10mg tab TID for treatment. Reports EPS symptoms with reglan and needs coadministered Benadryl. Patient currently resti ng in ED stretcher bed no distress. He is visibly in pain. He admits Torad ol has not completely controlled his pain and asking for morphine. No diarrhea, constipation or bleeding. CT scan abdomen and pelvis noted possi ble enteritis and cystitis. Patient denies painful urination. History Past medical history: Reports: Diabetes mellitus. Additional medical history: Reports chronic abdominal pain and gastroparesis Past surgical history: Reports: Cholecystectomy. Additional surgical history: Reports having a nerve stimulator Additional family history: Noncontributory Alcohol use: Denies EtOH use Drug use: Denies recreational drugs Smoking status for patients 13 years old or olde r: Never Smoker Other social history: Employed, Good social supp ort Medication/Allergy-Vaccine Hx Home Medications: glipiZIDE (GLUCOTROL) 10 MG PO DAILY INSULIN GLARGINE (LANTUS) 70 UNITS SUBQ BEDTIME METOPROLOL SUCC XL (TOPROL XL) 25 MG PO DAILY [MOTILIUM] 10 MG PO DAILY NORTRIPTYLINE (PAMELOR) 50 MG PO BEDTIME PANTOPRAZOLE DR (PROTONIX) 40 MG PO BEDTIME SIMVASTATIN (ZOCOR) 10 MG PO BEDTIME ZOLPIDEM (AMBIEN) 10 MG PO BEDTIME Discontinued Medications FAMOTIDINE (PEPCID) 20 MG PO DAILY Discontinued reason: DC prior to admit Allergies: Coded Allergies: clonidine (ANXIETY 05/20/19) metoclopramide (From REGLAN) (MUSCLE SPASMS 08/04) Ambulatory status: Independent Review of Systems All systems rev neg: except as marked (see HPI) Objective General VS/I O: Vital Signs: Date Time Temp Pulse Resp B/P B/P Pulse O2 O2 F low FiO2 Mean Ox Delivery Rate 06/01 1740 98.1 121 19 128/71 90 99 Room air 06/01 1640 98.2 118 17 118/69 85 99 Room air 06/01 1535 98.1 122 18 127/64 85 99 Room air 06/01 1430 98.0 127 19 119/69 85 99 Room air 06/01 1323 97.8 131 18 115/68 83 99 Room air Patient Weight Weight (lb): Weight (oz): Weight (kg): 79.545 Medications: Active Meds + DC'd Last 24 Hrs Nortriptyline HCl 50 MG BEDTIME PO Acetaminophen 650 MG Q6H PRN PRN PO Famotidine 20 MG DAILY PO Hydralazine HCl 10 MG Q4H PRN PRN IV Lorazepam 0.5 MG Q6H PRN PRN IV Metoprolol Succinate 25 MG DAILY PO Ondansetron HCl 4 MG Q6H PRN PRN IV Sodium Chloride 1,000 ML .Q10H IV Sodium Chloride 1,000 ML .[id number] IV Sodium Chloride 1,000 ML X1ED STA IV (DC) Dicyclomine HCl 20 MG X1ED STA PO (DC) Diphenhydramine HCl 25 MG X1ED STA IV (DC) Haloperidol Lactate 5 MG X1ED STA IV (DCr) Morphine Sulfate 2 MG X1ED STA IV (DC) Ketorolac Tromethamine 15 MG X1ED STA IV (DC) Sodium Chloride 1,000 ML X1ED STA IV (DC) Ondansetron HCl 4 MG X1ED STA IV (DC) Physical Exam General appearance: agitated, alert, awake, no r espiratory distress Head/Eyes: atraumatic, clear cornea, EOMI, keyonna l conjunctiva/sclera, normal eyelids/periorb., normocephalic, PERRL ENT: normal dentition, normal ear left, normal e ar right, normal nose, normal pharynx, normal sinus Neck: full range of motion, non-tender, normal thyroid, supple/no meningismus, no bruit/NL carotids, no JVD, no masses or swell ing Cardiovascular: normal capillary refill, regular rate rhythm Respiratory: aerating well, no distress Abdomen: tenderness, normal bowel sounds , soft, no distention, no guarding, no hernial, no mass/organomegaly, no rebound Extremities: moves all, normal capillary refill, normal range of motion, no edema Musculoskeletal: normal inspection Skin: dry, intact Results Findings/Data: Laboratory Tests 06/01 1352 Chemistry Sodium (136 - 145 mmol/L) 135 L Potassium (3.5 - 5.1 mmol/L) 4.2 Chloride (98 - 107 mmol/L) 99 Carbon Dioxide (21 - 32 mmol/L) 26 BUN (7 - 18 mg/dL) 30 H Creatinine (0.67 - 1.17 mg/dL) 1.30 H Estimated GFR (MDRD) (>=60) > 60.00 Glucose (70 - 100 mg/dL) 363 H Calcium (8.5 - 10.1 mg/dL) 10.2 H Troponin I (0.00 - 0.045 ng/ml) <0.015 Lipase (73 - 393 U/L) 68 L Laboratory Tests 06/01 1352 Coagulation PT (8.7 - 12.1 SECONDS) 9.8 INR 0.9 APTT (22.8 - 34.4 seconds) 24.0 Laboratory Tests 06/01 1352 Hematology WBC (4.5 - 11.0 X10(3)) 9.0 RBC (4.3 - 5.9 X10(6)) 4.85 Hgb (13.5 - 18.0 g/dL) 14.9 Hct (42.0 - 52.0 %) 44.0 MCV (78 - 100 fl) 90.7 MCH (26.0 - 34.0 pg) 30.7 MCHC (30.0 - 37.0 g/dl) 33.9 RDW (11.5 - 14.5 %) 12.0 Plt Count (150 - 350 X10(3)) 320 MPV (8.7 - 11.4 fl) 10.3 Neut % (Auto) (36.0 - 66.0 %) 57.7 Lymph % (Auto) (16 - 50 %) 32.7 Dixie % (Auto) (0.0 - 13.0 %) 7.8 Eos % (Auto) (0.0 - 4.5 %) 1.1 Baso % (Auto) (0.0 - 1.5 %) 0.3 Immature Gran # (Auto) (0.00 - 0.03 X10(3)uL) 0 .04 H Absolute Neuts (auto) (1.7 - 7.7 X10(3)) 5.2 Absolute Lymphs (auto) (0.7 - 4.0 X10(3)) 3.0 Absolute Monos (auto) (0.0 - 0.89 X10(3)) 0.7 Absolute Eos (auto) (0.0 - 0.6 X10(3)) 0.1 Absolute Basos (auto) (0.0 - 0.2 X10(3)) 0.0 Absolute Nucleated RBC (0.0 - 0.1 K/mm3) 0.00 Immature Gran % (0.0 - 2.0 %) 0.4 Nucleated RBC % (0 - 0.2 %) 0.0 Radiology data: Recent Impressions: RADIOLOGY - XR CHEST 1 V 06/01 1434 Report Impression - Status: SIGNED Entered: 06/01/2019 1440 Impression: 1. No radiographic evidence of acute cardiopulmo nary disease. Impression By: Mely Slade M.D. CAT SCAN - CT ABD PELVIS W/O CONT 06/01 1646 Report Impression - Status: SIGNED Entered: 06/01/2019 1720 IMPRESSION: No evidence of intestinal or urinary obstruction . Gastric mucosa appears thickened which may be in part related to incomplete distention. There are stimulator lead s which extend to the anterior aspect of the stomach suggesting gastro paresis. Mildly thickened air-filled small bowel loops in the left upper quadrant. This appearance might be in part relat ed to peristalsis. However, focal enteritis is not excluded. Correl ate with symptomatology. Urinary bladder is partially distended. The blad callie wall, however, appears thickened. Superimposed inflammatory pro cess such as cystitis is not excluded. Correlate with urinalysis. Descending and sigmoid colon are decompressed wh ich accentuates wall thickness. No definite inflammatory process asso ciated with the colon. Other nonemergent findings described above. Impression By: Jamie Santos MD Diagnosis, Assessment Plan Free Text DxA P Notes Free Text DxA P Notes: Presented with abdominal pain, nausea and vomiti ng Admitted with Gastroparesis T1DM CT evidence of enteritis CT evidence of cystitis Tachycardia Plan Admit the patient to medical floor Continue with selected home medications Continue with Motillium AC/HS SS insulin Diet clear liquids as tolerated UA CS r/o UTI Toradol 15mg IV q 6hr PRN moderate to severe ariel n Proceed with Erythromycin 250mg IVPB q 6 hours Antiemetics with Zofran 4mg IV IV hydration Follow up lab work VTE prophylaxis Condition stable, prognosis fair See orders Nathan Leblanc 06/03/19 1010: Attestations Physician Attestation Agree w/findings plan: 06/01/2019 I discussed the findings, diagnostic homar dies, interventions and treatment plan with Kelsey Landaverde NP. I reviewed the clinical no moo and test results. I agree with the assessment, management, and disposition as presented by Kelsey Landaverde NP. Nathan Leblanc MD at 2249 RPT #:[id number] END OF REPORT 2019-06-01 18:38:00-00:00 [facility] Hospital[facility] History Physical REPORT#:[id number] REPORT STATUS: Signed DATE:06/01/19 TIME: 1837 PATIENT: RADHA CARPENTER UNIT #: [id number] ROOM/BED: [address] : [address] AGE: 38 SEX: M ATTEND: Alin Leblanc MD ADM AUTHOR: Kelsey Landaverde APN * ALL edits or amendments must be made on the [employer]/computer document * Kelsey Landaverde. 06/01/191837: History of Present Illness HPI PCP: PCP: Galindo Chris MD HPI: The patient is a 38 year old male with history of T1DM treated with Lantus 30 units daily, Novol og 15 units TID meals, history of gastric stimulator for gastroparesis, cholecyst ectomy, who presents to ED with complaints of nauesa and vomiting associated with abdominal pain this morning about 0600. Patient reports having progressive nausea worsening over weekend. He uses Motillium 10mg tab TID for treatment. Reports EPS symptoms with reglan and needs coadministered Benadryl. Patient currently resti ng in ED stretcher bed no distress. He is visibly in pain. He admits Torad ol has not completely controlled his pain and asking for morphine. No diarrhea, constipation or bleeding. CT scan abdomen and pelvis noted possi ble enteritis and cystitis. Patient denies painful urination. History Past medical history: Reports: Diabetes mellitus. Additional medical history: Reports chronic abdominal pain and gastroparesis Past surgical history: Reports: Cholecystectomy. Additional surgical history: Reports having a nerve stimulator Additional family history: Noncontributory Alcohol use: Denies EtOH use Drug use: Denies recreational drugs Smoking status for patients 13 years old or olde r: Never Smoker Other social history: Employed, Good social supp ort Medication/Allergy-Vaccine Hx Home Medications: glipiZIDE (GLUCOTROL) 10 MG PO DAILY INSULIN GLARGINE (LANTUS) 70 UNITS SUBQ BEDTIME METOPROLOL SUCC XL (TOPROL XL) 25 MG PO DAILY [MOTILIUM] 10 MG PO DAILY NORTRIPTYLINE (PAMELOR) 50 MG PO BEDTIME PANTOPRAZOLE DR (PROTONIX) 40 MG PO BEDTIME SIMVASTATIN (ZOCOR) 10 MG PO BEDTIME ZOLPIDEM (AMBIEN) 10 MG PO BEDTIME Discontinued Medications FAMOTIDINE (PEPCID) 20 MG PO DAILY Discontinued reason: DC prior to admit Allergies: Coded Allergies: clonidine (ANXIETY 05/20/19) metoclopramide (From REGLAN) (MUSCLE SPASMS 08/04) Ambulatory status: Independent Review of Systems All systems rev neg: except as marked (see HPI) Objective General VS/I O: Vital Signs: Date Time Temp Pulse Resp B/P B/P Pulse O2 O2 Flow FiO2 Mean Ox Delivery Rate 06/01 1740 98.1 121 19 128/71 90 99 Room air 06/01 1640 98.2 118 17 118/69 85 99 Room air 06/01 1535 98.1 122 18 127/64 85 99 Room air 06/01 1430 98.0 127 19 119/69 85 99 Room air 06/01 1323 97.8 131 18 115/68 83 99 Room air Patient Weight Weight (lb): Weight (oz): Weight (kg): 79.545 Medications: Active Meds + DC'd Last 24 Hrs Nortriptyline HCl 50 MG BEDTIME PO Acetaminophen 650 MG Q6H PRN PRN PO Famotidine 20 MG DAILY PO Hydralazine HCl 10 MG Q4H PRN PRN IV Lorazepam 0.5 MG Q6H PRN PRN IV Metoprolol Succinate 25 MG DAILY PO Ondansetron HCl 4 MG Q6H PRN PRN IV Sodium Chloride 1,000 ML .Q10H IV Sodium Chloride 1,000 ML .[id number] IV Sodium Chloride 1,000 ML X1ED STA IV (DC) Dicyclomine HCl 20 MG X1ED STA PO (DC) Diphenhydramine HCl 25 MG X1ED STA IV (DC) Haloperidol Lactate 5 MG X1ED STA IV (DCr) Morphine Sulfate 2 MG X1ED STA IV (DC) Ketorolac Tromethamine 15 MG X1ED STA IV (DC) Sodium Chloride 1,000 ML X1ED STA IV (DC) Ondansetron HCl 4 MG X1ED STA IV (DC) Physical Exam General appearance: agitated, alert, awake, no r espiratory distress Head/Eyes: atraumatic, clear cornea, EOMI, keyonna l conjunctiva/sclera, normal eyelids/periorb., normocephalic, PERRL ENT: normal dentition, normal ear left, normal e ar right, normal nose, normal pharynx, normal sinus Neck: full range of motion, non-tender, normal thyroid, supple/no meningismus, no bruit/NL carotids, no JVD, no masses or swell ing Cardiovascular: normal capillary refill, regular rate rhythm Respiratory: aerating well, no distress Abdomen: tenderness, normal bowel sounds , soft, no distention, no guarding, no hernial, no mass/organomegaly, no rebound Extremities: moves all, normal capillary refill, normal range of motion, no edema Musculoskeletal: normal inspection Skin: dry, intact Results Findings/Data: Laboratory Tests 06/01 1352 Chemistry Sodium (136 - 145 mmol/L) 135 L Potassium (3.5 - 5.1 mmol/L) 4.2 Chloride (98 - 107 mmol/L) 99 Carbon Dioxide (21 - 32 mmol/L) 26 BUN (7 - 18 mg/dL) 30 H Creatinine (0.67 - 1.17 mg/dL) 1.30 H Estimated GFR (MDRD) (>=60) > 60.00 Glucose (70 - 100 mg/dL) 363 H Calcium (8.5 - 10.1 mg/dL) 10.2 H Troponin I (0.00 - 0.045 ng/ml) <0.015 Lipase (73 - 393 U/L) 68 L Laboratory Tests 06/01 1352 Coagulation PT (8.7 - 12.1 SECONDS) 9.8 INR 0.9 APTT (22.8 - 34.4 seconds) 24.0 Laboratory Tests 06/01 1352 Hematology WBC (4.5 - 11.0 X10(3)) 9.0 RBC (4.3 - 5.9 X10(6)) 4.85 Hgb (13.5 - 18.0 g/dL) 14.9 Hct (42.0 - 52.0 %) 44.0 MCV (78 - 100 fl) 90.7 MCH (26.0 - 34.0 pg) 30.7 MCHC (30.0 - 37.0 g/dl) 33.9 RDW (11.5 - 14.5 %) 12.0 Plt Count (150 - 350 X10(3)) 320 MPV (8.7 - 11.4 fl) 10.3 Neut % (Auto) (36.0 - 66.0 %) 57.7 Lymph % (Auto) (16 - 50 %) 32.7 Dixie % (Auto) (0.0 - 13.0 %) 7.8 Eos % (Auto) (0.0 - 4.5 %) 1.1 Baso % (Auto) (0.0 - 1.5 %) 0.3 Immature Gran # (Auto) (0.00 - 0.03 X10(3)uL) 0 .04 H Absolute Neuts (auto) (1.7 - 7.7 X10(3)) 5.2 Absolute Lymphs (auto) (0.7 - 4.0 X10(3)) 3.0 Absolute Monos (auto) (0.0 - 0.89 X10(3)) 0.7 Absolute Eos (auto) (0.0 - 0.6 X10(3)) 0.1 Absolute Basos (auto) (0.0 - 0.2 X10(3)) 0.0 Absolute Nucleated RBC (0.0 - 0.1 K/mm3) 0.00 Immature Gran % (0.0 - 2.0 %) 0.4 Nucleated RBC % (0 - 0.2 %) 0.0 Radiology data: Recent Impressions: RADIOLOGY - XR CHEST 1 V 06/01 1434 Report Impression - Status: SIGNED Entered: 06/01/2019 1440 Impression: 1. No radiographic evidence of acute cardiopulmo nary disease. Impression By: Mely - RAMAN Slade M.D. CAT SCAN - CT ABD PELVIS W/O CONT 06/01 1646 Report Impression - Status: SIGNED Entered: 06/01/2019 1720 IMPRESSION: No evidence of intestinal or urinary obstruction . Gastric mucosa appears thickened which may be in part related to incomplete distention. There are stimulator lead s which extend to the anterior aspect of the stomach suggesting gastro paresis. Mildly thickened air-filled small bowel loops in the left upper quadrant. This appearance might be in part relat ed to peristalsis. However, focal enteritis is not excluded. Correl ate with symptomatology. Urinary bladder is partially distended. The blad callie wall, however, appears thickened. Superimposed inflammatory pro cess such as cystitis is not excluded. Correlate with urinalysis. Descending and sigmoid colon are decompressed wh ich accentuates wall thickness. No definite inflammatory process asso ciated with the colon. Other nonemergent findings described above. Impression By: Jamie - Lili Santos MD Diagnosis, Assessment Plan Free Text DxA P Notes Free Text DxA P Notes: Presented with abdominal pain, nausea and vomiti ng Admitted with Gastroparesis T1DM CT evidence of enteritis CT evidence of cystitis Tachycardia Plan Admit the patient to medical floor Continue with selected home medications Continue with Motillium AC/HS SS insulin Diet clear liquids as tolerated UA CS r/o UTI Toradol 15mg IV q 6hr PRN moderate to severe ariel n Proceed with Erythromycin 250mg IVPB q 6 hours Antiemetics with Zofran 4mg IV IV hydration Follow up lab work VTE prophylaxis Condition stable, prognosis fair See orders Nathan Leblanc 06/03/19 1010: Attestations Physician Attestation Agree w/findings plan: 06/01/2019 I discussed the findings, diagnostic homar dies, interventions and treatment plan with Kelsey Landaverde NP. I reviewed the clinical no moo and test results. I agree with the assessment, management, and disposition as presented by Kelsey Landaverde NP. Nathan Leblanc MD at 2249 at 1012 RPT #:[id number] END OF REPORT 2019-06-01 13:43:00-00:00 [facility] EMERGENCY PROVIDER REPORT REPORT#:[id number] REPORT STATUS: Signed DATE:06/01/19 TIME: 1343 PATIENT: RADHA CARPENTER UNIT #: [id number] ROOM/BED: [place] [address] AGE: 38 SEX: M PCP PHYS: Galindo Chris MD SERVICE AUTHOR: Nathan Wolf Jr, MD * ALL edits or amendments must be made on the [employer]/computer document * HPI-Abd Pain M Under 40 General Confirmed Patient Yes Initial Greet Date/Time 06/01/19 1339 PCP Galindo Chris MD Presentation Chief Complaint Abdominal pain Hx Obtained From Patient Sudden in Onset? No Onset Occurred Today Symptom Duration Since onset Progression since Onset Unchanged Caused by No trauma by history Location LUQ Quality Painful Radiation Does not radiate. Migration/Movement None Severity: Onset Moderate Severity: Current Severe Associated with Reports: Nausea, Vomiting. D enies: Back pain, Chest pain, Chills, Constipation, Diarrhea, Dysuria, Fever. Associated Other Pt denies other symptoms Exacerbated by Nothing Relieved by Nothing Context Recent Healthcare No recent doctor visit, No rec ent hospitalization Similar Sx Previous Yes Free Text HPI Notes Free Text HPI Notes 38 y.o male with Hx of DM, c hronic abdominal pain and gastroparesis presents to ED for evaluation of LUQ ariel n, onset 0600. The pt noted that since onset he has also experienced nausea with multiple episodes o f emesis. The pt denies any diarrhea, constipation or fever. The pt reports a surgical Hx that includes a cholecystectomy and a gastro-neural stimulator. No other symptoms reported at this time. Portions of this section were scribed by Raman Mireles on 06/01/19 at 1351 Risk-Abd Pain M Under 40 )( Torsion Risk factors reviewed Portions of this section were scribed by Raman Mireles on 06/01/19 at 1343 Review of Systems ROS Statements All systems rev neg except as marked. Focused Review of Systems Constitutional Denies: Chills, Fever, Weakness - generalized. Respiratory Denies: Cough, non-productive, Cough, productive , Shortness of breath. Cardiovascular Denies: Chest pain. GI Reports: Abdominal pain, Nausea, Vomiting. Denie s: Diarrhea. Male Denies: Dysuria. Musculoskeletal Denies: Back pain. Additional Review of Systems Eyes Denies: Photophobia. Ears/Nose/Throat Denies: Nasal congestion. Skin Denies: Rash. Neurologic Denies: Headache. Portions of this section were scribed by Raman Mireles on 06/01/19 at 1343 Past Medical History - Adult Stated Complaint LEFT UPPER QUADRANT PAIN Allergies Coded Allergies: clonidine (ANXIETY 05/20/19) metoclopramide (From REGLAN) (MUSCLE SPASMS 08/04) Home Medications Active Scripts INSULIN GLARGINE (LANTUS) 70 UNITS SUBQ BEDTIME Reported Medications NORTRIPTYLINE (PAMELOR) 50 MG PO BEDTIME METOPROLOL SUCC XL (TOPROL XL) 25 MG PO DAILY [MOTILIUM] 10 MG PO DAILY FAMOTIDINE (PEPCID) 20 MG PO DAILY glipiZIDE (GLUCOTROL) 10 MG PO DAILY Review of Nursing Notes Rev avail, and agree Pt reports no significant: Family history, Socia l history Past Medical History: Reports: Diabetes mellitus. Additional Medical History Reports chronic abdominal pain and gastroparesis Past Surgical History: Reports: Cholecystectomy. Additional Surgical History Reports having a nerve stimulator Alcohol Use Denies EtOH use Drug Use Denies recreational drugs Smoking status for patients 13 years old or olde r: Never Smoker Other Social History Employed, Good social suppo rt Portions of this section were scribed by Raman Mireles on 06/01/19 at 1343 Physical Exam Vital Signs Vital Signs First Documented: Result Date Time Pulse Ox 99 06/01 1323 B/P 115/68 06/01 1323 B/P Mean 83 06/01 1323 O2 Delivery Room air 06/01 1323 Temp 36.6 06/01 1323 Pulse 131 06/01 1323 Resp 18 06/01 1323 Last Documented: Result Date Time Pulse Ox 99 06/01 153 B/P 127/64 06/01 1535 B/P Mean 85 06/01 1535 O2 Delivery Room air 06/01 153 Temp 36.7 06/01 153 Pulse 122 06/01 153 Resp 18 06/01 153 Review of Vital Signs Reviewed Focused PE General/Const General/Const Awake, Alert, Well appearing MS Head Head Normocephalic Eyes Eyes PERRL Ears/Nose/Throat Ears/Nose/Throat Airway patent, Mucous membrane s moist, Pharynx NL Resp/Chest Respiratory/Chest Breath sounds NL, Breath soun ds = bilat, No respiratory distress, No rales, No rhonchi, No wheezing Cardiovascular Cardiovascular Regular rhythm, Heart sounds NL, Peripheral circulation NL Heart Rate/Rhythm Tachycardia. Abdomen/GI Abdomen/GI Soft, McBurney's non-tender, No guar ding, No rebound, BS normoactive, No distention, No hernia, No palpab le mass Tenderness/Guarding/Rebound Tender LUQ. MS Back Back Inspection NL, Non-tender, No CVA tenderne ss Skin Skin Color NL, Warm, Dry, Turgor NL Neurologic Neurologic Oriented X3, Speech NL, No motor def icits, No sensory deficits Portions of this section were scribed by Raman Mireles on 06/01/19 at 1351 Interpretation Diagnostics Lab Results Interpretation Results Laboratory Tests 06/01/19 1352: [Embedded Image Not Available] Laboratory Tests: 06/01 135 Chemistry Sodium (136 - 145 mmol/L) 135 L Potassium (3.5 - 5.1 mmol/L) 4.2 Chloride (98 - 107 mmol/L) 99 Carbon Dioxide (21 - 32 mmol/L) 26 BUN (7 - 18 mg/dL) 30 H Creatinine (0.67 - 1.17 mg/dL) 1.30 H Estimated GFR (MDRD) (>=60) > 60.00 Glucose (70 - 100 mg/dL) 363 H Calcium (8.5 - 10.1 mg/dL) 10.2 H Troponin I (0.00 - 0.045 ng/ml) <0.015 Lipase (73 - 393 U/L) 68 L Coagulation PT (8.7 - 12.1 SECONDS) 9.8 INR 0.9 APTT (22.8 - 34.4 seconds) 24.0 Hematology WBC (4.5 - 11.0 X10(3)) 9.0 RBC (4.3 - 5.9 X10(6)) 4.85 Hgb (13.5 - 18.0 g/dL) 14.9 Hct (42.0 - 52.0 %) 44.0 MCV (78 - 100 fl) 90.7 MCH (26.0 - 34.0 pg) 30.7 MCHC (30.0 - 37.0 g/dl) 33.9 RDW (11.5 - 14.5 %) 12.0 Plt Count (150 - 350 X10(3)) 320 MPV (8.7 - 11.4 fl) 10.3 Neut % (Auto) (36.0 - 66.0 %) 57.7 Lymph % (Auto) (16 - 50 %) 32.7 Dixie % (Auto) (0.0 - 13.0 %) 7.8 Eos % (Auto) (0.0 - 4.5 %) 1.1 Baso % (Auto) (0.0 - 1.5 %) 0.3 Immature Gran # (Auto) (0.00 - 0.03 X10(3)uL) 0 .04 H Absolute Neuts (auto) (1.7 - 7.7 X10(3)) 5.2 Absolute Lymphs (auto) (0.7 - 4.0 X10(3)) 3.0 Absolute Monos (auto) (0.0 - 0.89 X10(3)) 0.7 Absolute Eos (auto) (0.0 - 0.6 X10(3)) 0.1 Absolute Basos (auto) (0.0 - 0.2 X10(3)) 0.0 Absolute Nucleated RBC (0.0 - 0.1 K/mm3) 0.00 Immature Gran % (0.0 - 2.0 %) 0.4 Nucleated RBC % (0 - 0.2 %) 0.0 Recent Impressions: RADIOLOGY - XR CHEST 1 V 06/01 1434 Report Impression - Status: SIGNED Entered: 06/01/2019 1440 Impression: 1. No radiographic evidence of acute cardiopulmo nary disease. Impression By: Mely Slade M.D. Lab Imaging Statement Laboratory radiographic studies reviewed and con sidered in the medical decision-making. ECG #1 Interpretation ECG Documented in MUSE Yes Date 06/01/19 Time 1322 Interpreted by ED physician NL ECG Interpretation No acute ischemic changes, No STEMI Rate 137 Rhythm Tachycardia Portions of this section were scribed by Raman Mireles on 06/01/19 at 1351 Re-Evaluation MDM )( Re-Evaluation/Progress #1 )( Re-Eval Status Unchanged ED Course Medication(s) Ordered Medication(s) Ordered: Antihistamine Drugs Sig/Sima Start time Last Medication Dose Route Stop Time Status Admin Diphenhydramine HCl 25 MG X1ED STA 06/01 1457 D C 06/01 IV 06/01 1458 1504 Autonomic Drugs Sig/Sima Start time Last Medication Dose Route Stop Time Status Admin Dicyclomine HCl 20 MG X1ED STA 06/01 1457 DC 0 06/01 PO 06/01 1458 1505 Central Nervous System Agents Sig/Sima Start time Last Medication Dose Route Stop Time Status Admin Haloperidol Lactate 5 MG X1ED STA 06/01 1457 DC r 06/01 IV 06/01 1458 1504 Morphine Sulfate 2 MG X1ED STA 06/01 1347 DC IV 06/01 1348 1404 Ketorolac 15 MG X1ED STA 06/01 1346 DC 06/01 Tromethamine IV 06/01 1347 1403 Electrolytic, Caloric, And Yumiko Sig/Sima Start time Last Medication Dose Route Stop Time Status Admin Sodium Chloride 1,000 ML .[id number] 06/01 1600 AC IV 06/02 1451 Sodium Chloride 1,000 ML X1ED STA 06/01 1549 AC IV 06/01 1648 Sodium Chloride 1,000 ML X1ED STA 06/01 1346 DC 06/01 IV 06/01 1445 1404 Gastrointestinal Drugs Sig/Sima Start time Last Medication Dose Route Stop Time Status Admin Ondansetron HCl 4 MG X1ED STA 06/01 1344 DC IV 06/01 1345 1403 Portions of this section were scribed by Raman Mireles on 06/01/19 at 1351 Patient Discharge Departure Vital Signs/Condition Vital Signs First Documented: Result Date Time Pulse Ox 99 06/01 1323 B/P 115/68 06/01 1323 B/P Mean 83 06/01 1323 O2 Delivery Room air 06/01 1323 Temp 36.6 06/01 1323 Pulse 131 06/01 1323 Resp 18 06/01 1323 Last Documented: Result Date Time Pulse Ox 99 06/01 1535 B/P 127/64 06/01 1535 B/P Mean 85 06/01 1535 O2 Delivery Room air 06/01 1535 Temp 36.7 06/01 1535 Pulse 122 06/01 1535 Resp 18 06/01 1535 All vital signs available at the time of this en try have been reviewed. Clinical Impression Clinical Impression Primary Impression: ABD PAIN Secondary Impressions: Intractable vomiting Disposition Decision Admit Admit Physician Name Nathan Leblanc MD Request Time 1551 Request Date 06/01/19 )( Admission Accepts Yes )( Accepted Time 1551 )( Accepted Date 06/01/19 Discharge/Care Plan Admit Note I have spoken with the patie nt and/or caregivers. I have explained the patient's condition, diagnoses and adela atment plan based on the information available to me at this time. I have answered the patient's and/ or caregiver's questions and addressed any concerns. The patient and/or careg pasha have as good an understanding of the patient 's diagnosis, condition and treatment plan as can be expected at this point. The patient has been stabilized within the capability of the emergency department. The patient wi ll be transported for further care and management or will be moved to an observation or inpatient service. I have communicated with the staff or medical p ractitioner taking over this patient's care. Critical Care Time Spent (minutes): 35 Services Performed Patient management by me, Joe e spent at bedside, Reviewing test results, Reviewing imaging, Discussing jose luis ent care, Documentation in record, Time with fam/surrogate Supervising Physician Note Scribe Statement Raman Toussaint, 06/01/19 6799, scribing for and in the presence of [Nathan Wolf MD]. Signed By: Raman Toussaint, 06/01/19 3919 Provider Scribed Statement I personally performed the s ervices described in this documentation and reviewed the documentation that was dictated to the scrib e(s) in my presence, and it accurately records my words and actions. Nathan Wolf MD, 06/01/19 Portions of this section were scribed by Raman Mireles on 06/01/19 at 1351 Electronically Signed by Nathan Wolf Jr, MD n 06/01/19 at 1625 RPT #:[id number] END OF REPORT 2019-06-01 13:22:00-00:00 [id number] [place] [address] PATIENT NAME: RADHA CARPENTER ADMIT DATE: 0 ACCOUNT NO: [id number] ROOM NO: H526 AGE: 38 REPORT TYPE: ELECTROCARDIOGRAM SEX: M : 82 ADMITTING PHYSICIAN:Nathan Leblanc MD ATTENDING PHYSICIAN:Nathan Leblanc MD Order: [id number] Test Reason : LUQ Test Date/Time Stamp: ThuJun 01 2019 13:22:28 Blood Pressure : / mmHG Vent. Rate : 137 BPM Atrial Rate : 137 BPM P-R Int : 114 ms QRS Dur : 078 ms QT Int : 304 ms P-R-T Axes : 076 077 025 degree s QTc Int : 459 ms Sinus tachycardia Possible Left atrial enlargement Borderline ECG When compared with ECG of 22-MAY-2019 06:06, No significant change was found Confirmed by MD WOLF RICHARD ([id number]) on 020 6:16:30 AM Referred By: Self Referred Confirmed by:NATHAN WOLF MD at 0619 PATIENT NAME: RADHA CARPENTER [id number] 2019-05-22 06:06:00-00:00 [id number] [place] [address] PATIENT NAME: RADHA CARPENTER ADMIT DATE: ACCOUNT NO: [id number] ROOM NO: AGE: 38 REPORT TYPE: ELECTROCARDIOGRAM SEX: M : 82 ADMITTING PHYSICIAN: ATTENDING PHYSICIAN:Yfn Stokes MD Order: [id number] Test Reason : EKG Test Date/Time Stamp: ThuMay 22 2019 06:06:10 Blood Pressure : / mmHG Vent. Rate : 132 BPM Atrial Rate : 132 BPM P-R Int : 124 ms QRS Dur : 080 ms QT Int : 304 ms P-R-T Axes : 055 078 000 degree s QTc Int : 450 ms Sinus tachycardia Possible Left atrial enlargement Borderline ECG When compared with ECG of 20-MAY-2019 22:31, (Un confirmed) No significant change was found Confirmed by MD RIANA, LAURA Slade ([id number]), book or script editor YFN STOKES ([id number]) on 05/22/2019 8:58:23 PM Referred By: Self Referred Confirmed by:WILMER HAMILTON MD Electronically Signed by Wilmer Bruce MD on at 2058 PATIENT NAME: RADHA CARPENTER [id number] 2019-05-22 05:41:00-00:00 [facility] EMERGENCY PROVIDER REPORT REPORT#:[id number] REPORT STATUS: Signed DATE:05/22/19 TIME: 0541 PATIENT: RADHA CARPENTER UNIT #: [id number] ROOM/BED: AGE: 38 SEX: M PCP PHYS: Galindo Chris MD SERVICE AUTHOR: Yfn Stokes MD * ALL edits or amendments must be made on the el [facility]/computer document * HPI-Abd Pain M Under 40 General Confirmed Patient Yes Patient Type Existing patient Initial Greet Date/Time 05/22/19 0532 PCP Galindo Chris MD Presentation Chief Complaint Abdominal pain Hx Obtained From Patient Sudden in Onset? No Onset Occurred Today Symptom Duration Chronic Progression since Onset Constant Caused by No trauma by history Location Diffuse Quality Painful Radiation Does not radiate. Migration/Movement None Severity: Onset Severe Severity: Current Severe Associated with Reports: Nausea, Vomiting. Denies: Back pain, Ch est pain, Fever, Shortness of breath. Associated Other Pt denies other symptoms Exacerbated by Nothing Relieved by Nothing Context Recent Healthcare Recent doctor visit Similar Sx Previous Yes Free Text HPI Notes Free Text HPI Notes 38 y/o M with Hx of gastroporesis, DM and HTN pr esents to the ED for further evaluation of chronic abdomi nal pain onset today. Pt reports he was seen in the ED two days ago for the same abdominal pain. Pts family reports pt had gastroneuro stimulator placed in 2013 bu t is currently "maxed out." Pts family reports pts medication for gastroporesis ran out about 3 months ago. No other symptoms reported at this time. Portions of this section were scribed by Danny Bowden on 05/22/19 at 0541 Risk-Abd Pain M Under 40 )( Torsion Risk factors reviewed Review of Systems ROS Statements All systems rev neg except as marked. Focused Review of Systems Constitutional Denies: Chills, Fever, Weakness - generalized. Respiratory Denies: Cough, non-productive, Cough, productive , Shortness of breath. Cardiovascular Denies: Chest pain, Palpitations. GI Reports: Abdominal pain, Nausea, Vomiting. Denie s: Diarrhea. Male Denies: Dysuria, Flank pain. Musculoskeletal Denies: Back pain, Neck pain. Additional Review of Systems Eyes Denies: Discharge bilat. Ears/Nose/Throat Denies: Ear ringing bilat. Skin Denies: Swelling. Neurologic Denies: Dizziness, Generalized weakness, Headach e, Lightheaded. Portions of this section were scribed by Danny Bowden on 05/22/19 at 0541 Past Medical History - Adult Stated Complaint ABDOMINAL PAIN Allergies Coded Allergies: clonidine (ANXIETY 05/20/19) metoclopramide (From REGLAN) (MUSCLE SPASMS 08/04) Home Medications Active Scripts INSULIN GLARGINE (LANTUS) 70 UNITS SUBQ BEDTIME Reported Medications NORTRIPTYLINE (PAMELOR) 50 MG PO BEDTIME METOPROLOL SUCC XL (TOPROL XL) 25 MG PO DAILY [MOTILIUM] 10 MG PO DAILY FAMOTIDINE (PEPCID) 20 MG PO DAILY glipiZIDE (GLUCOTROL) 10 MG PO DAILY Review of Nursing Notes Rev avail, and agree Pt reports no significant: Family history Past Medical History: Reports: Diabetes mellitus. Additional Medical History Reports chronic abdominal pain and gastroparesis Past Surgical History: Reports: Cholecystectomy. Additional Surgical History Reports having a nerve stimulator Alcohol Use Denies EtOH use Drug Use Denies recreational drugs Smoking status for patients 13 years old or olde r: Never Smoker Other Social History Employed, Good social suppo rt Portions of this section were scribed by Danny Bowden on 05/22/19 at 0541 Physical Exam Vital Signs Vital Signs First Documented: Result Date Time Pulse Ox 99 05/22 534 B/P 169/105 05/22 534 B/P Mean 126 05/22 534 O2 Delivery Room air 05/22 534 Temp 36.6 05/22 534 Pulse 140 05/22 534 Resp 20 05/22 534 Last Documented: Result Date Time Pulse Ox 100 05/22 636 B/P 141/81 05/22 636 B/P Mean 101 05/22 636 O2 Delivery Room air 05/22 636 Temp 36.6 05/22 636 Pulse 118 05/22 636 Resp 18 05/22 636 Review of Vital Signs Reviewed Focused PE General/Const General/Const Awake, Alert MS Head Head Normocephalic Eyes Eyes PERRL Ears/Nose/Throat Ears/Nose/Throat Airway patent, Mucous membrane s moist, Pharynx NL Resp/Chest Respiratory/Chest Breath sounds NL, Breath soun ds = bilat, No respiratory distress, No rales, No rhonchi, No wheezing Cardiovascular Cardiovascular Peripheral circulation NL, Puls es = bilaterally Heart Rate/Rhythm Tachycardia. Abdomen/GI Abdomen/GI Soft, No guarding, No rebound, No di stention Text/Dict Notes abdominal pain MS Back Back Inspection NL, Non-tender, No CVA tenderne ss Skin Skin Color NL, Warm, Dry, Turgor NL Neurologic Neurologic Oriented X3, Speech NL, No motor def icits, No sensory deficits Portions of this section were scribed by Danny Bowden on 05/22/19 at 0541 Interpretation Diagnostics Lab Results Interpretation Results Laboratory Tests 05/22/19 05: [Embedded Image Not Available] Laboratory Tests: 05/22 543 Chemistry Sodium (136 - 145 mmol/L) 134 L Potassium (3.5 - 5.1 mmol/L) 4.1 Chloride (98 - 107 mmol/L) 100 Carbon Dioxide (21 - 32 mmol/L) 24 BUN (7 - 18 mg/dL) 24 H Creatinine (0.67 - 1.17 mg/dL) 1.10 Estimated GFR (MDRD) (>=60) > 60.00 Glucose (70 - 100 mg/dL) 318 H Calcium (8.5 - 10.1 mg/dL) 9.4 Total Bilirubin (0.2 - 1.0 mg/dl) 0.7 Direct Bilirubin (0.0 - 0.4 mg/dl) 0.17 AST (15 - 37 U/L) 15 ALT (12 - 78 U/L) 30 Alkaline Phosphatase (50 - 136 U/L) 68 Total Protein (6.4 - 8.2 g/dl) 8.0 Albumin (3.4 - 5.0 g/dl) 4.5 Triglycerides (30 - 150 mg/dL) 225 H Lipase (73 - 393 U/L) 56 L Beta-Hydroxybutyric Acd (0.00 - 0.28 mmol/L) 2. 70 H Hematology WBC (4.5 - 11.0 X10(3)) 9.5 RBC (4.3 - 5.9 X10(6)) 4.46 Hgb (13.5 - 18.0 g/dL) 13.3 L Hct (42.0 - 52.0 %) 41.1 L MCV (78 - 100 fl) 92.2 MCH (26.0 - 34.0 pg) 29.8 MCHC (30.0 - 37.0 g/dl) 32.4 RDW (11.5 - 14.5 %) 12.1 Plt Count (150 - 350 X10(3)) 360 H MPV (8.7 - 11.4 fl) 10.0 Neut % (Auto) (36.0 - 66.0 %) 64.2 Lymph % (Auto) (16 - 50 %) 27.5 Dixie % (Auto) (0.0 - 13.0 %) 7.1 Eos % (Auto) (0.0 - 4.5 %) 0.4 Baso % (Auto) (0.0 - 1.5 %) 0.2 Immature Gran # (Auto) (0.00 - 0.03 X10(3)uL) 0 .06 H Absolute Neuts (auto) (1.7 - 7.7 X10(3)) 6.1 Absolute Lymphs (auto) (0.7 - 4.0 X10(3)) 2.6 Absolute Monos (auto) (0.0 - 0.89 X10(3)) 0.7 Absolute Eos (auto) (0.0 - 0.6 X10(3)) 0.0 Absolute Basos (auto) (0.0 - 0.2 X10(3)) 0.0 Absolute Nucleated RBC (0.0 - 0.1 K/mm3) 0.00 Immature Gran % (0.0 - 2.0 %) 0.6 Nucleated RBC % (0 - 0.2 %) 0.0 Lab Statement Laboratory studies reviewed and considered in th e medical decision-making. ECG #1 Interpretation ECG Documented in MUSE Yes Date 05/22/19 Time 0611 Interpreted by ED physician NL ECG Interpretation No acute ischemic changes, No STEMI Rate 132 Rhythm Tachycardia Portions of this section were scribed by Danny Bowden on 05/22/19 at 0541 Re-Evaluation [facility] )( Re-Evaluation/Progress #1 Time of Re-Eval 0630 )( Re-Eval Status Resolved, PT WITH CHORNIC ABDO ZULMA PAIN NON COMPLAINT WIHT MEDICAITON AND UNCONTROLLED DM WILL D/C PT ON REGLAN AND BENADRYL UNTIL HE GETS THE DOMPERIDONE ED Course Medication(s) Ordered Medication(s) Ordered: Antihistamine Drugs Sig/Sima Start time Last Medication Dose Route Stop Time Status Admin Diphenhydramine HCl 50 MG X1ED STA 05/22 0443 D C 05/22 IV 05/22 0544 0559 Central Nervous System Agents Sig/Sima Start time Last Medication Dose Route Stop Time Status Admin Hydromorphone HCl 1 MG X1ED STA 05/22 0607 DC 0 / IV 05/22 0608 0615 Meperidine HCl 50 MG X1ED STA 05/22 0543 DC IV 05/22 0544 0558 Electrolytic, Caloric, And Yumiko Sig/Sima Start time Last Medication Dose Route Stop Time Status Admin Sodium Chloride 1,000 ML X1ED STA 05/22 0614 DC D IV 05/22 0813 Sodium Chloride 100 ML .STK-MED ONE 05/22 0555 DC 05/22 IV 0559 Sodium Chloride 1,000 ML X1ED STA 05/22 0543 DC 05/22 IV 05/22 0642 0614 Gastrointestinal Drugs Sig/Sima Start time Last Medication Dose Route Stop Time Status Admin Ondansetron HCl 6 MG X1ED STA 05/22 0610 DC IV 05/22 0511 0616 Metoclopramide HCl 10 MG X1ED STA 05/22 0442 DC r 05/22 IV 05/22 0443 0559 Hormones And Synthetic Substit Sig/Sima Start time Last Medication Dose Route Stop Time Status Admin Insulin Human Regular 4 UNIT X1ED STA 05/22 061 3 DC 05/22 SUBQ 05/22 0514 0626 Patient Discharge Departure Vital Signs/Condition Vital Signs First Documented: Result Date Time Pulse Ox 99 05/22 534 B/P 169/105 05/22 534 B/P Mean 126 05/22 534 O2 Delivery Room air 05/22 534 Temp 36.6 05/22 534 Pulse 140 05/22 534 Resp 20 05/22 534 Last Documented: Result Date Time Pulse Ox 100 05/22 636 B/P 141/81 05/22 636 B/P Mean 101 05/22 636 O2 Delivery Room air 05/22 636 Temp 36.6 05/22 636 Pulse 118 05/22 636 Resp 18 05/22 636 All vital signs available at the time of this en try have been reviewed. Condition Improved Clinical Impression Clinical Impression Primary Impression: Chronic generalized abdomina l pain Secondary Impressions: Gastroparesis, Uncontroll ed diabetes mellitus Time of Impression 630 Disposition Decision Discharge )( Discharged to Home Yes )( Time 06 )( Date 05/22/19 Discharge/Care Plan Counseled Regarding Diagnosis, Lab resul ts, Prescriptions, Need for follow-up, When to return to ED Prescriptions REGLAN, BENADRYL, F/U WITH PCP AND F/U WITH ENDO CRINOLOGY Prescriptions Reviewed Risks, Benefits, Alternat colt treatment Discharge Note I have spoken with the patie nt and/or caregivers. I have explained the patient's condition, diagnoses and adela atment plan based on the information available to me at this time. I have answered the patient's and/ or caregiver's questions and addressed any concerns. The patient and/or careg pasha have as good an understanding of the patient 's diagnosis, condition and treatment plan as can be expected at this point. The vital signs have bee n stable. The patient's condition is stable and appr opriate for discharge from the emergency department. The patient will pursue further outpatient evalu ation with the primary care physician or other designated or consulting phys ician as outlined in the discharge instructions. The patient and/or caregivers are agreeable to this plan of care and follow-up instructions have been exp lained in detail. The patient and/or caregivers have received these instructio ns in written format and have expressed an understanding of the discharge inst ructions. The patient and/or caregivers are aware that any significant change in condition or worsening of symptoms should prompt an immediate return to [facility] or the closest emergency department or a call to 911. Supervising Physician Note Scribe Statement Bing Bowden, 05/22/19 0543 , scribing for and in the presence of [Yfn Stokes MD]. Signed By: Bing Bowden, 05/22/19 0543 Provider Scribed Statement I personally performed the s ervices described in this documentation and reviewed the documentation that was dictated to the scrib e(s) in my presence, and it accurately records my words and actions.Yfn pederson MD, 05/22/19 Portions of this section were scribed by Danny Bowden on 05/22/19 at 0541 Electronically Signed by Yfn Stokes MD on 0 05/22/19 at 0701 RPT #:[id number] END OF REPORT 2019-05-20 22:44:00-00:00 [facility] EMERGENCY PROVIDER REPORT REPORT#:[id number] REPORT STATUS: Signed DATE:05/20/19 TIME: 2243 PATIENT: RADHA CARPENTER UNIT #: [id number] ROOM/BED: AGE: 38 SEX: M PCP PHYS: Galindo Chris MD SERVICE AUTHOR: Emir Marx DO * ALL edits or amendments must be made on the el ectronic/computer document * HPI-Abd Pain M Under 40 General Confirmed Patient Yes Patient Type Existing patient Initial Greet Date/Time 05/20/192228 PCP Aries Medley MD (PCP) Presentation Chief Complaint Abdominal pain Hx Obtained From Patient Sudden in Onset? Yes Onset Occurred Today Symptom Duration Since onset Progression since Onset Unchanged Location Epigastric Quality Painful Radiation Does not radiate. Migration/Movement None Severity: Onset Severe Severity: Current Severe Associated with Reports: Nausea, Vomiting (x5). Denies: Back ariel n, Chest pain. Associated Other Pt denies other symptoms Exacerbated by Movement, Palpation Relieved by Nothing Context Recent Healthcare No recent doctor visit, No rec ent hospitalization Similar Sx Previous Yes Free Text HPI Notes Free Text HPI Notes 38 y/o male with hx of DM, g astroparesis, and chronic abd pain presents into ED for further evaluation of epigastric abd pain on set today. Associated sxs include nause a and vomiting (x5), but denies diarrhea or a fever. As per pt, he has had similar sxs before, and ad mits he went to GI specialist several times but never Dx him with anything. He denies taking any pain medications BELL RINGER. No PS Hx reported at this time. Portions of this section were scribed by Aishwarya Lau on 05/21/19 at 0032 Risk-Abd Pain M Under 40 )( Torsion Risk factors reviewed Portions of this section were scribed by Aishwarya Lau on 05/20/19 at 2244 Review of Systems ROS Statements All systems rev neg except as marked. Focused Review of Systems Constitutional Denies: Fever, Weakness - generalized. Respiratory Denies: Cough, non-productive, Cough, productive , Shortness of breath. Cardiovascular Denies: Chest pain, Palpitations. GI Reports: Abdominal pain, Nausea, Vomiting (x5). Male Denies: Dysuria, Flank pain. Musculoskeletal Denies: Back pain, Extremity pain, Neck pain. Additional Review of Systems Eyes Denies: Discharge bilat, Photophobia. Ears/Nose/Throat Denies: Nasal congestion, Sore throat. Skin Denies: Rash, Swelling. Neurologic Denies: Headache, Lightheaded. Portions of this section were scribed by Aishwarya Lau on 05/20/19 at 2244 Past Medical History - Adult Stated Complaint ABDOMINAL PAIN Allergies Coded Allergies: clonidine (ANXIETY 05/20/19) metoclopramide (From REGLAN) (MUSCLE SPASMS 08/04) Home Medications Active Scripts INSULIN GLARGINE (LANTUS) 70 UNITS SUBQ BEDTIME Reported Medications NORTRIPTYLINE (PAMELOR) 50 MG PO BEDTIME METOPROLOL SUCC XL (TOPROL XL) 25 MG PO DAILY [MOTILIUM] 10 MG PO DAILY FAMOTIDINE (PEPCID) 20 MG PO DAILY glipiZIDE (GLUCOTROL) 10 MG PO DAILY Review of Nursing Notes Rev avail, and agree Pt reports no significant: Family history Past Medical History: Reports: Diabetes mellitus. Additional Medical History Reports chronic abdominal pain and gastroparesis Past Surgical History: Reports: Cholecystectomy. Additional Surgical History Reports having a nerve stimulator Alcohol Use Denies EtOH use Drug Use Denies recreational drugs Smoking status for patients 13 years old or olde r: Never Smoker Other Social History Employed, Good social suppo rt Portions of this section were scribed by Aishwarya Lau on 05/20/19 at 2244 Physical Exam Vital Signs Vital Signs First Documented: Result Date Time Pulse Ox 100 05/20 2216 B/P 147/100 05/20 2216 B/P Mean 115 05/20 2216 O2 Delivery Room air 05/20 2216 Temp 37.2 05/20 2216 Pulse 135 05/20 2216 Resp 18 05/20 2216 Last Documented: Result Date Time Pulse Ox 100 05/21 0100 B/P 128/85 05/21 0100 B/P Mean 99 05/21 0100 O2 Delivery Room air 05/21 010 Temp 36.6 05/21 0100 Pulse 112 05/21 0100 Resp 16 05/21 0100 Review of Vital Signs Reviewed Focused PE General/Const General/Const Awake, Alert, Well appearing MS Head Head Normocephalic Eyes Eyes PERRL Ears/Nose/Throat Ears/Nose/Throat Airway patent, Mucous membrane s moist, Pharynx NL Resp/Chest Respiratory/Chest Breath sounds NL, Breath soun ds = bilat, No respiratory distress, No rales, No rhonchi, No wheezing Cardiovascular Cardiovascular Heart rate NL, Regular rhythm, H eart sounds NL, Peripheral circulation NL Abdomen/GI Tenderness/Guarding/Rebound Tender epigastric. MS Back Back Inspection NL, Non-tender, No CVA tenderne ss Skin Skin Color NL, Warm, Dry, Turgor NL Neurologic Neurologic Oriented X3, Speech NL, No motor def icits, No sensory deficits Portions of this section were scribed by Aishwarya Lau on 05/21/19 at 0032 Interpretation Diagnostics Lab Results Interpretation Considerations Independ review imaging Results Laboratory Tests 05/20/19 2313: [Embedded Image Not Available] 05/20/19 2240: [Embedded Image Not Available] Laboratory Tests: 05/20 05/20 05/20 2325 2313 2250 Chemistry Sodium (136 - 145 mmol/L) 133 L Potassium (3.5 - 5.1 mmol/L) 4.0 Chloride (98 - 107 mmol/L) 98 Carbon Dioxide (21 - 32 mmol/L) 26 BUN (7 - 18 mg/dL) 26 H Creatinine (0.67 - 1.17 mg/dL) 1.10 Estimated GFR (MDRD) (>=60) > 60.00 Glucose (70 - 100 mg/dL) 372 H POC Glucose (70 - 105 mg/dL) 379 H Calcium (8.5 - 10.1 mg/dL) 10.0 Total Bilirubin (0.2 - 1.0 mg/dl) 0.7 Direct Bilirubin (0.0 - 0.4 mg/dl) 0.19 AST (15 - 37 U/L) 16 ALT (12 - 78 U/L) 32 Alkaline Phosphatase (50 - 136 U/L) 66 Total Protein (6.4 - 8.2 g/dl) 7.7 Albumin (3.4 - 5.0 g/dl) 4.2 Lipase (73 - 393 U/L) 42 L Toxicology Ketones (NEGATIVE mg/dl) 20 H Urines Urine Color (YELLOW) Straw Urine Appearance (CLEAR) CLEAR Urine pH (4.6 - 8.0) 6.0 Ur Specific [place] (1.001 - 1.035) 1.025 Urine Protein (NEGATIVE mg/dl) NEGATIVE Urine Glucose (UA) (NORMAL mg/dl) >=500 H Urine Blood (NEGATIVE /UL) NEGATIVE Urine Nitrite (NEGATIVE) NEGATIVE Urine Bilirubin (NEGATIVE mg/dl) NEGATIVE Urine Urobilinogen (NORMAL mg/dl) NORMAL Ur Leukocyte Esterase (NEGATIVE /UL) NEGATIVE Urine RBC (0 - 5 #/hpf) 3-5 Urine WBC (0 - 5 #/hpf) 0-2 Ur Epithelial Cells (NEG,FEW /hpf) FEW Urine Sperm (NEGATIVE /hpf) 1+ H Urine Comment CLN CATCH 05/20 2240 Hematology WBC (4.5 - 11.0 X10(3)) 9.2 RBC (4.3 - 5.9 X10(6)) 4.92 Hgb (13.5 - 18.0 g/dL) 14.9 Hct (42.0 - 52.0 %) 43.3 MCV (78 - 100 fl) 88.0 MCH (26.0 - 34.0 pg) 30.3 MCHC (30.0 - 37.0 g/dl) 34.4 RDW (11.5 - 14.5 %) 12.2 Plt Count (150 - 350 X10(3)) 421 H MPV (8.7 - 11.4 fl) 12.2 H Neut % (Auto) (36.0 - 66.0 %) 69.3 H Lymph % (Auto) (16 - 50 %) 23.3 [place] % (Auto) (0.0 - 13.0 %) 5.5 Eos % (Auto) (0.0 - 4.5 %) 0.7 Baso % (Auto) (0.0 - 1.5 %) 0.4 Immature Gran # (Auto) (0.00 - 0.03 X10(3)uL) 0 .07 H Absolute Neuts (auto) (1.7 - 7.7 X10(3)) 6.4 Absolute Lymphs (auto) (0.7 - 4.0 X10(3)) 2.2 Absolute Monos (auto) (0.0 - 0.89 X10(3)) 0.5 Absolute Eos (auto) (0.0 - 0.6 X10(3)) 0.1 Absolute Basos (auto) (0.0 - 0.2 X10(3)) 0.0 Absolute Nucleated RBC (0.0 - 0.1 K/mm3) 0.00 Immature Gran % (0.0 - 2.0 %) 0.8 Nucleated RBC % (0 - 0.2 %) 0.0 Platelet Estimate (ADEQUATE) INCREASED Anisocytosis (NOT PRESENT) 1+ Recent Impressions: CAT SCAN - CT ABD PELVIS W/O CONT 05/20 6284 Report Impression - Status: SIGNED Entered: 05/21/2019 0019 IMPRESSION: Essentially unremarkable noncontrast CT examinat ion of the abdomen and pelvis without evidence of acute intra-abdominal pathology. Impression By: [email or web address] Tiffanie MG MD. Lab Imaging Statement Laboratory radiographic studies reviewed and con sidered in the medical decision-making. ECG #1 Interpretation Text/Dict Note Sinus tachycardia with short [place] ECG Documented in MUSE Yes Date 05/20/19 Time 3743 Interpreted by ED physician NL ECG Interpretation No STEMI, Adequate tracing Rate 134 Atrium and Vent Size Atrial enlargement - L (Pos sible) Portions of this section were scribed by Aishwarya Lau on 05/21/19 at 0032 Re-Evaluation MDM )( Re-Evaluation/Progress #1 Time of Re-Eval 0010 )( Re-Eval Status Improved ED Course Medication(s) Ordered Medication(s) Ordered: Cardiovascular Drugs Sig/Sima Start time Last Medication Dose Route Stop Time Status Admin Lidocaine HCl 10 ML X1ED STA 05/20 2228 DC / 3 PO 05/20 2230 2248 Central Nervous System Agents Sig/Sima Start time Last Medication Dose Route Stop Time Status Admin Hydromorphone HCl 0.5 MG X1ED STA 05/21 0045 DC 05/21 IV 05/21 0046 0054 Hydromorphone HCl 0.5 MG X1ED STA 05/21 0020 DC 05/21 IV 05/21 0021 0027 Morphine Sulfate 4 MG X1ED STA 05/20 2228 DC IV 05/20 2230 2249 Electrolytic, Caloric, And Yumiko Sig/Sima Start time Last Medication Dose Route Stop Time Status Admin Sodium Chloride 1,000 ML X1ED STA 05/20 2228 DC 05/20 IV 05/20 2328 2248 Gastrointestinal Drugs Sig/Sima Start time Last Medication Dose Route Stop Time Status Admin Al Hydrox/Mg Hydrox/ 30 ML X1ED STA 05/20 2228 DC 05/20 Simethicone PO 05/20 2230 2248 Ondansetron HCl 4 MG X1ED STA 05/20 2228 DC IV 05/20 2230 2248 Portions of this section were scribed by Aishwarya Lau on 05/21/19 at 0032 Patient Discharge Departure Vital Signs/Condition Vital Signs First Documented: Result Date Time Pulse Ox 100 05/20 2216 B/P 147/100 05/20 2216 B/P Mean 115 05/20 2216 O2 Delivery Room air 05/20 2216 Temp 37.2 05/20 2216 Pulse 135 05/20 2216 Resp 18 05/20 2216 Last Documented: Result Date Time Pulse Ox 100 05/21 0100 B/P 128/85 05/21 0100 B/P Mean 99 05/21 0100 O2 Delivery Room air 05/21 99 Temp 36.6 05/21 99 Pulse 112 05/21 99 Resp 16 05/21 99 All vital signs available at the time of this en try have been reviewed. Condition Improved Clinical Impression Clinical Impression Primary Impression: Chronic abdominal pain Time of Impression 0033 Disposition Decision Discharge )( Discharged to Home Yes )( Time 003 )( Date 05/21/19 Discharge/Care Plan Counseled Regarding Diagnosi s, Lab results, Imaging studies, Need for follow-up, When to return to ED Discharge Note I have spoken with the patie nt and/or caregivers. I have explained the patient's condition, diagnoses and adela atment plan based on the information available to me at this time. I have answered the patient's and/ or caregiver's questions and addressed any concerns. The patient and/or careg pasha have as good an understanding of the patient 's diagnosis, condition and treatment plan as can be expected at this point. The vital signs have bee n stable. The patient's condition is stable and appr opriate for discharge from the emergency department. The patient will pursue further outpatient evalu ation with the primary care physician or other designated or consulting phys ician as outlined in the discharge instructions. The patient and/or caregivers are agreeable to this plan of care and follow-up instructions have been exp lained in detail. The patient and/or caregivers have received these instructio ns in written format and have expressed an understanding of the discharge inst ructions. The patient and/or caregivers are aware that any significant change in condition or worsening of symptoms should prompt an immediate return to [facility] or the closest emergency department or a call to 911. Supervising Physician Note Scribe Statement Nano Lau, 05/20/19 2844, scribing for and in the presence of [Emir Cunningham MD]. Signed By: Nano Lau, 05/20/19 2874 Provider Scribed Statement I personally performed the s ervices described in this documentation and reviewed the documentation that was dictated to the scrib e(s) in my presence, and it accurately records my words and actions. Emir Carmichael MD, 05/20/19 Portions of this section were scribed by Aishwarya Lau on 05/21/19 at 0032 Electronically Signed by Emir Marx DO on 09/04 at 0643 RPT #:[id number] END OF REPORT
[2023-01-21] MEDS ORDERED: METOCLOPRAMIDE 10 MG/2mL INJ ONE (21:24)
[2023-01-21] MEDS ORDERED: NA CHLORIDE 0.9% 1,000 ML ONE (21:25)
[2023-01-21] MEDS ORDERED: MORPHINE 4 MG/ML SYR ONE ×2 (21:25→23:31)
[2023-01-21 21:26] LABS: Absolute Lymphocytes (CBC) 2.4 K/uL (0.7-4.9); Hematocrit 39.7 % (39.6-49.0); Lymphocytes % 28.1 % (15.3-44.8); MPV 7.7 fL (7.6-11.3); Platelets 379 thou/uL (152-406); RBC Red Blood Cell Count 4.37 M/uL (4.33-5.43)
[2023-01-21] MEDS ORDERED: ONDANSETRON 4 MG/2 ML VIAL ONE ×2 (21:28→23:31)
[2023-01-21 22:15] LABS: Albumin 3.9 g/dL (3.4-5.0); Bilirubin Total 0.5 mg/dL (0.2-1.0); Potassium 4.2 mEq/L (3.5-5.1); Protein, Total 8.8 g/dL (6.4-8.2); Troponin High Sensitivity 10.6 pg/mL (<58.9)
--- NOTE | 2023-01-21 23:07 | ER ---
Nurse's Notes [facility] [place], [place] [facility] Name: Christian Lee Age: 42 yrs Sex: Male : 1980 Arrival Date: 01/21/2023 Time: 20:49 Bed 17 Private MD: Mo Rascon Diagnosis: Gastroparesis;Nausea with vomiting, unspecified-intractable;Upper abdominal pain, unspecified Presentation: 01/21 20:57 Chief complaint: Patient states: NAUSEA AND VOMITING TODAY, SEEN THIS MORNING, LAB AND rv CT NORMAL-DC. NOT GETTING BETTER. Coronavirus screen: At this time, the client does not indicate any symptoms associated with coronavirus-19. Ebola Screen: No symptoms or risks identified at this time. Initial Sepsis Screen: Does the patient meet any 2 criteria? No. Patient's initial sepsis screen is negative. Does the patient have a suspected source of infection? No. Patient's initial sepsis screen is negative. Risk Assessment: Do you want to hurt yourself or someone else? Patient reports no desire to harm self or others. Onset of symptoms was January 21, 2023. 20:57 Method Of Arrival: Ambulatory rv 20:57 Acuity: IRINEO 3 rv Triage Assessment: 20:59 General: Appears uncomfortable, Behavior is calm, cooperative. Pain: Complains of pain rv in abdomen. Neuro: Level of Consciousness is awake, alert, obeys commands, Oriented to person, place, time, situation. Cardiovascular: Patient's skin is warm and dry. Respiratory: Airway is patent Respiratory effort is even, unlabored. GI: Abdomen is Pt is actively vomiting. Derm: Skin is intact. Historical: - Allergies: 20:59 Clonidine; rv 20:59 Compazine; rv 20:59 Fentanyl; rv 20:59 [place]; GI problems; rv 20:59 tramadol; GI problems; rv 20:59 Reglan; rv - PMHx: 20:59 diabetes mellitus; Gastroparesis; Hypertensive disorder; neuropathy; rv Hypercholesterolemia; insomnia; - PSHx: 20:59 2nd toe amputation R foot; 3rd and 4th toe amputation to Right foot; Cholecystectomy; rv - Immunization history:: Adult Immunizations up to date. - Social history:: Smoking status: Patient denies any tobacco usage or history of. Screenin:25 [facility] ED Fall Risk Assessment (Adult) Score/Fall Risk Level 0 - 2 = Low Risk eb1 Oriented to surroundings, Maintained a safe environment. Abuse screen: Denies threats or abuse. Denies injuries from another. Nutritional screening: No deficits noted. Tuberculosis screening: No symptoms or risk factors identified. Assessment: 21:45 General: Appears in no apparent distress. uncomfortable, well groomed, well developed, eb1 well nourished. Pain: Complains of pain in abdomen. Neuro: No deficits noted. Cardiovascular: No deficits noted. Respiratory: No deficits noted. GI: Bowel sounds Abd is soft Abdomen is tender to palpation Reports cramping, nausea, vomiting. : No deficits noted. No signs and/or symptoms were reported regarding the genitourinary system. EENT: No deficits noted. No signs and/or symptoms were reported regarding the EENT system. Derm: No deficits noted. No signs and/or symptoms reported regarding the dermatologic system. Musculoskeletal: No deficits noted. No signs and/or symptoms reported regarding the musculoskeletal system. Vital Signs: 20:57 Pulse 118; Resp 18; Temp 99.1; Pulse Ox 100% ; Weight 99.79 kg; Height 6 ft. 1 in. ; rv 21:02 BP 149 / 110; rv 20:57 Body Mass Index 29.03 (99.79 kg, 185.42 cm) rv ED Course: 20:51 Patient arrived in ED. mr 20:52 Mo Rascon MD is Private Physician. mr 20:54 Radha Sewell FNP-C is [facility]. kb 20:54 Yusuf Cope MD is Attending Physician. kb 20:59 Triage completed. rv 21:01 Arm band placed on right wrist. rv 22:25 Patient has correct armband on for positive identification. eb1 22:25 Provided Education on:. eb1 23:07 Apple Florence MD is Hospitalizing Provider. kb 01/22 00:00 No provider procedures requiring assistance completed. Inserted saline lock: 20 gauge rv in right antecubital area, using aseptic technique. 01:38 Patient admitted, IV remains in place. rv Administered Medications: 01/21 21:22 Drug: NS 0.9% IV 1000 ml Route: IV; Rate: 1 bolus; Site: right antecubital; eb1 21:22 Drug: morphine IVP or IV 4 mg Route: IVP; Infused Over: 4 mins; Site: right antecubital;eb1 21:22 Not Given (Patient Refused): metoCLOPramide IVP 10 mg IVP once; over 1 to 2 minutes eb1 21:23 Drug: Ondansetron IVP 4 mg Route: IVP; Site: right antecubital; eb1 23:23 Drug: morphine IVP or IV 4 mg Route: IVP; Infused Over: 4 mins; Site: right antecubital;eb1 23:23 Drug: Ondansetron IVP 4 mg Route: IVP; Site: right antecubital; eb1 Medication: 22:25 VIS not applicable for this client. eb1 Outcome: 23:07 Decision to Hospitalize by Provider. kb 01/22 01:38 Admitted to ER Hold. Please see [facility] for further documentation. rv Condition: good Instructed on the need for admit. 08:25 Patient left the ED. [email or web address] Signatures: Radha Sewell, RHINOLOGIST-C RHINOLOGIST-Ckb Isabel Ngo Selene Alvarado RN RN eb1 Mian Bonilla, Sunni Chavarria RN, RN RN kc6
--- NOTE | 2023-01-21 23:08 | EDPHYS ---
Physician Documentation [facility] Name: Christian Lee Age: 42 yrs Sex: Male : 1980 Arrival Date: 01/21/2023 Time: 20:49 Bed 17 Private MD: Mo Rascon ED Physician Yusuf Cope HPI: 01/21 23:03 This 42 yrs old Male presents to ER via Ambulatory with complaints of kb Abdominal Pain, Vomiting. 23:03 The patient presents with abdominal pain in the upper abdomen. Onset: The kb symptoms/episode began/occurred today. The symptoms do not radiate. Associated signs and symptoms: Pertinent positives: nausea and vomiting, Pertinent negatives: diarrhea, fever. The symptoms are described as constant. Modifying factors: The symptoms are alleviated by nothing, the symptoms are aggravated by nothing. Severity of pain: At its worst the pain was moderate severe in the emergency department the pain is unchanged. The patient has experienced similar episodes in the past, several times. The patient has been recently seen at the [facility] Emergency Department, today, for similar complaints labs were performed, CT scan was performed. Pt reports upper abd pain, nausea and vomiting that is similar to previous gastroparesis episodes. Was here this morning for same complaints and sent home, but pain, nausea and vomiting persists . Historical: - Allergies: 20:59 Clonidine; rv 20:59 Compazine; rv 20:59 Fentanyl; rv 20:59 [place]; GI problems; rv 20:59 tramadol; GI problems; rv 20:59 Reglan; rv - PMHx: 20:59 diabetes mellitus; Gastroparesis; Hypertensive disorder; neuropathy; rv Hypercholesterolemia; insomnia; - PSHx: 20:59 2nd toe amputation R foot; 3rd and 4th toe amputation to Right foot; Cholecystectomy; rv - Immunization history:: Adult Immunizations up to date. - Social history:: Smoking status: Patient denies any tobacco usage or history of. ROS: 23:01 Constitutional: Negative for fever, chills, and weight loss. kb 23:01 Abdomen/GI: Positive for abdominal pain, nausea and vomiting. 23:01 All other systems are negative. Exam: 23:01 Constitutional: This is a well developed, well nourished patient who is awake, alert, kb and in no acute distress. Head/Face: Normocephalic, atraumatic. ENT: Moist Mucous membranes Cardiovascular: Regular rate and rhythm with a normal S1 and S2. No gallops, murmurs, or rubs. No pulse deficits. Respiratory: Respirations even and unlabored. No increased work of breathing. Talking in full sentences Skin: Warm, dry with normal turgor. Normal color. MS/ Extremity: Pulses equal, no cyanosis. Neurovascular intact. Full, normal range of motion. Neuro: Awake and alert, GCS 15, oriented to person, place, time, and situation. Moves all extremities. Normal gait. 23:01 Abdomen/GI: Inspection: abdomen appears normal, Bowel sounds: normal, Palpation: soft, in all quadrants, moderate abdominal tenderness, in the right upper quadrant and left upper quadrant. Vital Signs: 20:57 Pulse 118; Resp 18; Temp 99.1; Pulse Ox 100% ; Weight 99.79 kg; Height 6 ft. 1 in. ; rv 21:02 BP 149 / 110; rv 20:57 Body Mass Index 29.03 (99.79 kg, 185.42 cm) rv MDM: 20:55 Patient medically screened. kb 23:06 Differential diagnosis: gastritis, non-specific abd pain, gastroparesis, electrolyte kb abnormality. Data reviewed: vital signs, nurses notes. Consideration of Admission/Observation Patient was admitted/placed on observation. Escalation of care including admission/observation considered. Management of patient was discussed with the following: Hospitalist: DAVID Spicer accepts pt for admission. Counseling: I had a detailed discussion with the patient and/or guardian regarding the historical points, exam findings, and any diagnostic results supporting the discharge/admit diagnosis, lab results, the need for further work-up and treatment in the hospital. 01/21 20:59 Order name: CBC with Diff; Complete Time: 21:41 kb 01/21 20:59 Order name: CMP; Complete Time: 22:19 kb 01/21 20:59 Order name: Lipase; Complete Time: 22:19 kb 01/21 20:59 Order name: Troponin High Sensitivity; Complete Time: 22:19 kb 01/21 23:25 Order name: Urinalysis w/ reflexes EDID 01/21 23:25 Order name: Basic Metabolic Panel EDID 01/21 23:25 Order name: Basic Metabolic Panel EDID 01/21 23:25 Order name: Basic Metabolic Panel EDID 01/21 23:25 Order name: Basic Metabolic Panel EDMS 01/21 23:25 Order name: CBC with Automated Diff EDMS 01/21 23:25 Order name: CBC with Automated Diff EDMS 01/21 23:25 Order name: CBC with Automated Diff EDMS 01/21 23:25 Order name: CBC with Automated Diff EDMS 01/21 23:25 Order name: Magnesium EDMS 01/21 23:25 Order name: Magnesium EDMS 01/21 23:25 Order name: Magnesium EDMS 01/21 23:25 Order name: Magnesium EDMS 01/22 08:18 Order name: Glucose, Ancillary Testing EDMS 01/21 23:19 Order name: Abdomen EDMS 01/21 23:25 Order name: Regular EDMS 01/21 20:59 Order name: IV Saline Lock; Complete Time: 22:11 kb 01/21 20:59 Order name: Labs collected and sent; Complete Time: 22:11 kb Administered Medications: 21:22 Drug: NS 0.9% IV 1000 ml Route: IV; Rate: 1 bolus; Site: right antecubital; eb1 21:22 Drug: morphine IVP or IV 4 mg Route: IVP; Infused Over: 4 mins; Site: right antecubital;eb1 21:22 Not Given (Patient Refused): metoCLOPramide IVP 10 mg IVP once; over 1 to 2 minutes eb1 21:23 Drug: Ondansetron IVP 4 mg Route: IVP; Site: right antecubital; eb1 23:23 Drug: morphine IVP or IV 4 mg Route: IVP; Infused Over: 4 mins; Site: right antecubital;eb1 23:23 Drug: Ondansetron IVP 4 mg Route: IVP; Site: right antecubital; eb1 Disposition: 01/22 01:18 Co-signature as Attending Physician, Yusuf Cope MD I agree with the assessment sp4 and plan of care. I reviewed the patient's care provided by Advanced Practice Provider \T\ agree w/ the diagnosis \T\ care plan. I personally saw the pt \T\ performed a substantive portion of the visit, incldng all aspects of the (History/Exam/Medical Decision Making). Disposition Summary: 01/21/23 23:07 Hospitalization Ordered Hospitalization Status: Observation kb Provider: Apple Florence Condition: Stable kb Problem: new kb Symptoms: are unchanged kb Bed/Room Type: Standard kb Location: Telemetry/MedSurg (observation)(01/22/23 05:01) eb1 Room Assignment: 427(01/22/23 05:01) eb1 Diagnosis - Gastroparesis kb - Nausea with vomiting, unspecified - intractable kb - Upper abdominal pain, unspecified kb Forms: - Medication Reconciliation Form kb - SBAR form kb - Leadership Thank You Letter kb Signatures: Dispatcher [employer] EDMS Radha Sewell, APPLICATIONS ENGINEERING MANAGER-C APPLICATIONS ENGINEERING MANAGER-Selene Echols RN RN eb1 Mian Bonilla, RN RN rv Yusuf Cope MD MD sp4 Corrections: (The following items were deleted from the chart) 01/21 23:24 23:07 Telemetry/MedSurg (observation) kb eb1 23:24 23:07 kb eb1 01/22 05:01 01/21 23:24 [facility] ER HOLD eb1 eb1 01/22 05:01 01/21 23:24 ERHOLD- eb1 eb1
--- NOTE | 2023-01-21 23:09 | P.HP ---
Certification for Inpatient Patient admitted to: Inpatient With expected LOS: <2 Midnights Patient will require the following post-hospital care: None Practitioner: I am a practitioner with admitting privileges, knowledge of patient current condition, hospital course, and medical plan of care. Services: Services provided to patient in accordance with Admission requirements found in Title 42 Section 412.3 of the Code of Federal Regulations Patient History Date of Service: 01/22/23 History of Present Illness: 42-year-old male with a past medical history of type I diabetes, gastroparesis, hypertension, hyperlipidemia, osteomyelitis with amputations, neuropathy presents to the emergency room with abdominal pain, nausea vomiting. He reports vomiting x 10 today, poor po intake, he denies fever, chills, weight loss, chest pain, shortness of breath cough. Plan to admit for abdominal pain, intractable nausea vomiting, gastroparesis. Laboratory evaluation CBC unrem arkable, mild hyponatremia at 135, BUN 19, creatinine1.13, blood glucose 328 troponin normal at 10.6 lipase normal at 23 anion gap 15.2 ER evaluation BP 149 / 110; Pulse 118; Resp 18; Temp 99.1; Pulse Ox 100% ; Weight 99.79 kg; Height 6 ft. 1 in, CT abd/ pelvis CT Abd Pelvis, IMPRESSION: No acute abnormality is displayed.Mild prostatic enlargement, A small umbilical hernia. Spondylosis L4- 5. Mild fatty liver. Cholecystectomy Allergies acetaminophen [From [facility]] Allergy (Verified 09/16/21 11:30) Hives hydrocodone [From [facility]] Allergy (Verified 09/16/21 11:30) Hives tramadol Allergy (Verified 09/16/21 11:30) Hives metoclopramide [From Reglan] Adverse Reaction (Intermediate, Verified 02/11/21 14:08) involuntary spasms clonidine Adverse Reaction (Verified 02/11/21 14:08) severe anxiety prochlorperazine [From Compazine] Adverse Reaction (Verified 02/11/21 14:08) severe anxiety Home Medications: Insulin Aspart [Novolog Penfill] 30 unit SQ AC 01/24/21 Nortriptyline HCl [Pamelor] 50 mg PO BEDTIME 01/24/21 Zolpidem Tartrate 10 mg PO BEDTIME 01/24/21 Famotidine 20 mg PO PRN PRN 09/15/21 Insulin Glargine,Hum.rec.anlog [Lantus] 50 unit SQ BID 12/23/21 Codeine/APAP [Tylenol W/Codeine #3 tab] 1 tab PO Q6HP PRN #30 tab 07/11/22 Collagenase [Santyl Ointment*] 1 appl TOP DAILY #1 tube 07/11/22 Promethazine Tab [Phenergan*] 25 mg PO Q6H PRN #30 tab 07/11/22 clonazePAM [Klonopin] 0.5 mg PO TID #60 tab 07/11/22 - Past Medical/Surgical History Diabetic: Yes -: T1DM -: gastroparesis -: neuropathy -: HLD -: HTN -: Osteomyelitis -: R foot diabetic ulcer debridement -: cholecystectomy -: gastroneuro stimulator implant -: multiple vascular procedures on R leg , -: amputation of 2nd, 3rd, 4th digit right foot jan 2022 Psychosocial/ Personal History: Patient is . 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 - Family History Father -: Diabetes Mother -: Hypertension, Diabetes, Cancer Notes: [place] Brother -: Diabetes Sister -: Diabetes - Social History Alcohol use: No CD- Drugs: Yes Caffeine use: No Review of Systems 10-point ROS is otherwise unremarkable Physical Examination - Physical Exam General: Alert, Oriented x3, Mild distress HEENT: Atraumatic, Normocephalic, PERRLA, Other (dry mucous mebrane) Neck: Supple, 2+ carotid pulse no bruit, JVD not distended Respiratory: Clear to auscultation bilaterally, Normal air movement Cardiovascular: No edema, Normal pulses, Regular rate/rhythm, Normal S1 S2 Capillary refill: <2 Seconds Gastrointestinal: Hypoactive, Tenderness (epigastric ) Musculoskeletal: No clubbing, No swelling Integumentary: No rashes, No breakdown Neurological: Normal speech, Normal strength at 5/5 x4 extr, Normal tone, Sensation intact - Studies Laboratory Data (last 24 hrs) 01/21/23 01/21/23 21:10 21:10 WBC 8.60 Hgb 13.6 Hct 39.7 Plt Count 379 Sodium 135 L Potassium 4.2 BUN 19 H Creatinine 1.13 Glucose 328 H Total Bilirubin 0.5 AST 23 ALT 55 Alkaline Phosphatase 96 Lipase 23 Assessment and Plan - Plan Assessment plan Intractable nausea vomiting acute kidney injury prerenal nv Abdominal pain gastroparesis Type 1 diabetes Hyponatremia hypertension hyperlipidemia osteomyelitis with amputations neuropathy DVT prophylaxis assessment plan Intractable nausea vomiting Abdominal pain gastroparesis Peripheral neuropathy Type 1 diabetes HX osteomyelitis with amputations GI consult CBC unremarkable, blood glucose 328 troponin normal at 10.6 lipase normal at 23 anion gap 15.2 IV fluids,PPI, as needed antiemetics, analgesics CT abd/ pelvis CT Abd Pelvis, IMPRESSION: No acute abnormality is displayed.Mild prostatic enlargement, A small umbilical hernia. Spondylosis L4-5. Mild fatty liver. Cholecystectomy acute kidney injury prerenal nv BUN 19, creatinine1.13 IVF Hyponatremia mild hyponatremia at 135, IV fluids BUN 19, creatinine1.13, blood glucose 328 hypertension hyperlipidemia BP 149 / 110; Pulse 118; Resp 18; Temp 99.1; Pulse Ox 100% ; Weight 99.79 kg; Height 6 ft. 1 in, resume approp home meds Diet clear liquid Full code DVT prophylaxis Discharge Plan: Home Plan to discharge in: 48 Hours - Advance Directives Does patient have a Living Will: No Does patient have a Durable POA for Healthcare: No - Code Status/Comfort Care Code Status: Full Code Physician Review: Patient Assessed, Agree with Above Assessment and Plan Critical Care: No Time Spent Managing Pts Care (In Minutes): 50
[2023-01-21] MEDS: INSULIN -REGULAR HUMAN 50 UNIT/0.5 ML ML SQ SCH (23:23)
[2023-01-21] MEDS ORDERED: ALPRAZOLAM 0.25 MG TABLET PO PRN (23:23)
[2023-01-21] MEDS ORDERED: ACETAMINOPHEN 500 MG TAB PO PRN (23:23)
[2023-01-21] MEDS ORDERED: MORPHINE 4 MG/ML SYR IV PRN (23:37)
[2023-01-21] MEDS: INSULIN GLARGINE 100 UNIT/ML SQ SCH (23:37)
[2023-01-21] MEDS: NA CHLORIDE 0.9% 1,000 ML IV SCH (23:45)
[2023-01-22] MEDS: HYDROMORPHONE HCL 1 MG/ML INJ IV PRN ×6 (00:28→21:12)
[2023-01-22] MEDS ORDERED: NA CHLORIDE 0.9% 1,000 ML ONE (00:28)
[2023-01-22] MEDS ORDERED: HYDROMORPHONE HCL 1 MG/ML INJ ONE ×2 (00:38→05:45)
[2023-01-22 05:27] LABS: Absolute Lymphocytes (CBC) 2.3 K/uL (0.7-4.9); Hematocrit 36.1 % (39.6-49.0); Lymphocytes % 27.5 % (15.3-44.8); MCV 91.8 fL (80-100); MPV 7.5 fL (7.6-11.3); Platelets 313 thou/uL (152-406); RBC Red Blood Cell Count 3.93 M/uL (4.33-5.43)
[2023-01-22 05:42] LABS: Magnesium 2.3 mg/dL (1.6-2.4)
[2023-01-22] MEDS: INSULIN -REGULAR HUMAN 50 UNIT/0.5 ML ML SQ SCH ×4 (07:30→21:11)
[2023-01-22] MEDS ORDERED: INSULIN -REGULAR HUMAN 50 UNIT/0.5 ML ML ONE (08:21)
[2023-01-22] MEDS: INSULIN GLARGINE 100 UNIT/ML SQ SCH ×2 (08:27→21:12)
[2023-01-22 08:34] VITALS: O2SAT 100
[2023-01-22] MEDS ORDERED: ENOXAPARIN 40 MG/0.4 ML SQ SCH (09:00)
[2023-01-22] MEDS: ONDANSETRON 4 MG/2 ML VIAL IV PRN ×2 (09:28→23:12)
[2023-01-22] MEDS: NA CHLORIDE 0.9% 1,000 ML IV SCH (09:29)
[2023-01-22] MEDS: PROMETHAZINE INJ 25 MG/ML AMP IV PRN ×2 (13:27→23:12)
[2023-01-22] MEDS ORDERED: GLUCAGON 1 MG/VIAL IM PRN (16:54)
[2023-01-22] MEDS ORDERED: D10W 250 ML BAG IV PRN (16:54)
[2023-01-22] MEDS ORDERED: INSULIN -REGULAR HUMAN 50 UNIT/0.5 ML ML SQ ONE (16:56)
[2023-01-22] MEDS ORDERED: D5 0.9 NS 1,000 ML IV SCH (17:00)
[2023-01-22] MEDS ORDERED: NA CHLORIDE 0.9% 1,000 ML IV SCH (20:00)
[2023-01-23] MEDS: HYDROMORPHONE HCL 1 MG/ML INJ IV PRN ×4 (02:01→14:44)
[2023-01-23 07:39] VITALS: BMI 28.8
[2023-01-23] MEDS: INSULIN GLARGINE 100 UNIT/ML SQ SCH ×2 (08:36→21:53)
[2023-01-23] MEDS: INSULIN -REGULAR HUMAN 50 UNIT/0.5 ML ML SQ SCH ×4 (08:36→21:52)
[2023-01-23 10:28] LABS: Absolute Lymphocytes (CBC) 2.6 K/uL (0.7-4.9); Hematocrit 38.6 % (39.6-49.0); Lymphocytes % 27.1 % (15.3-44.8); MCV 91.6 fL (80-100); MPV 7.9 fL (7.6-11.3); Platelets 324 thou/uL (152-406); RBC Red Blood Cell Count 4.21 M/uL (4.33-5.43)
[2023-01-23] MEDS: ONDANSETRON 4 MG/2 ML VIAL IV PRN ×2 (10:39→19:15)
[2023-01-23 10:41] LABS: Albumin 3.3 g/dL (3.4-5.0); Bilirubin Total 0.3 mg/dL (0.2-1.0); Magnesium 2.3 mg/dL (1.6-2.4); Protein, Total 7.4 g/dL (6.4-8.2)
[2023-01-23] MEDS: HYDROMORPHONE HCL 0.5 MG/0.5 ML INJ IV PRN ×2 (19:15→23:09)
[2023-01-23] MEDS: PROMETHAZINE INJ 25 MG/ML AMP IV PRN (21:53)
[2023-01-24] MEDS: HYDROMORPHONE HCL 0.5 MG/0.5 ML INJ IV PRN ×2 (03:26→07:28)
[2023-01-24] MEDS: PROMETHAZINE INJ 25 MG/ML AMP IV PRN ×2 (03:27→07:28)
[2023-01-24 04:55] LABS: Absolute Lymphocytes (CBC) 2.7 K/uL (0.7-4.9); Hematocrit 39.7 % (39.6-49.0); Lymphocytes % 35.3 % (15.3-44.8); MCV 91.9 fL (80-100); MPV 7.5 fL (7.6-11.3); Platelets 308 thou/uL (152-406); RBC Red Blood Cell Count 4.32 M/uL (4.33-5.43)
[2023-01-24 05:13] LABS: Magnesium 2.3 mg/dL (1.6-2.4); Phosphorus 2.4 mg/dL (2.5-4.9); Potassium 3.4 mEq/L (3.5-5.1)
[2023-01-24] MEDS: INSULIN -REGULAR HUMAN 50 UNIT/0.5 ML ML SQ SCH (07:30)
[2023-01-24] MEDS: INSULIN GLARGINE 100 UNIT/ML SQ SCH (08:23)
[2023-01-24] MEDS ORDERED: POTASSIUM CL SA 10 MEQ TAB PO ONE (09:00)
--- NOTE | 2023-01-24 09:18 | P.PN ---
Date of Service: 01/22/23 Subjective Pt is doing well with no new complaints Physical Examination -Vitals reviewed - Physical Exam General: Alert, Oriented x3, Mild distress HEENT: dry mucous mebrane Respiratory: Clear to auscultation bilaterally Cardiovascular: Regular rate/rhythm, Normal S1 S2 Gastrointestinal: Hypoactive, Tenderness (epigastric ) Musculoskeletal: No clubbing, No swelling Neurological: No focal deficits Assessment and Plan - Assessment Assessment -Intractable nausea vomiting -Acute kidney injury prerenal -Abdominal pain gastroparesis -Type 1 diabetes -Hyponatremia -Hypertension -Hyperlipidemia -Osteomyelitis with amputations -Neuropathy - Plan Plan Intractable nausea vomiting Abdominal pain/gastroparesis Peripheral neuropathy Type 1 diabetes HX osteomyelitis with amputations GI consult Patient clinically doing well. Patient denies any new complaints. Pain controlled. Symptoms are stable. Anticipate discharge in the morning. Acute kidney Renal function is stable. Outpatient nephrology follow-up. Hyponatremia Sodium is corrected. Patient stable for discharge. hypertension hyperlipidemia Blood pressure is stable. Continue oral blood pressure medications. Diet clear liquid Full code DVT prophylaxis
--- NOTE | 2023-01-24 09:20 | P.PN ---
Date of Service: 01/23/23 Subjective Patient continues to improve. Patient denies any new complaints. Clinical symptoms are stable. Physical Examination -Vitals reviewed - Physical Exam General: Alert, Oriented x3, Mild distress HEENT: dry mucous mebrane Respiratory: Clear to auscultation bilaterally Cardiovascular: Regular rate/rhythm, Normal S1 S2 Gastrointestinal: Hypoactive, Tenderness (epigastric ) Musculoskeletal: No clubbing, No swelling Neurological: No focal deficits Assessment and Plan - Assessment Assessment -Intractable nausea vomiting -Acute kidney injury prerenal -Abdominal pain gastroparesis -Type 1 diabetes -Hyponatremia -Hypertension -Hyperlipidemia -Osteomyelitis with amputations -Neuropathy - Plan Plan Intractable nausea vomiting Abdominal pain/gastroparesis Peripheral neuropathy Type 1 diabetes HX osteomyelitis with amputations GI consult Patient clinically doing well; no new complaints. Patient denies any new complaints. Pain controlled. Symptoms are stable. Anticipate DC in the morning. Acute kidney Renal function is stable. Outpatient nephrology follow-up. Hyponatremia Sodium is corrected. Patient stable for discharge. hypertension hyperlipidemia Blood pressure is stable. Continue oral blood pressure medications. Diet clear liquid Full code DVT prophylaxis
--- NOTE | 2023-01-24 09:26 | P.DS ---
Discharge Date: 01/24/23 Disposition: ROUTINE DISCHARGE Discharge Condition: GOOD Brief History of Present Illness: Pt is a 42-year-old male with a past medical history of type I diabetes, gastroparesis, hypertension, hyperlipidemia, osteomyelitis with amputations, neuropathy presents to the emergency room with abdominal pain, nausea vomiting. He reports vomiting x 10 today, poor po intake, he denies fever, chills, weight loss, chest pain, shortness of breath cough. Plan to admit for abdominal pain, intractable nausea vomiting, gastroparesis. Laboratory evaluation CBC unremarkable, mild hyponatremia at 135, BUN 19, creatinine1.13, blood glucose 328 troponin normal at 10.6 lipase normal at 23 anion gap 15.2 ER evaluation BP 149 / 110; Pulse 118; Resp 18; Temp 99.1; Pulse Ox 100% ; Weight 99.79 kg; Height 6 ft. 1 in, CT abd/ pelvis CT Abd Pelvis, IMPRESSION: No acute abnormality is displayed.Mild prostatic enlargement, A small umbilical hernia. Spondylosis L4-5. Mild fatty liver. Cholecystectomy Hospital Course: Patient is clinically doing well. Patient denies any new complaints. Continue with discharge planning. Patient will go home with scheduled medications. Vital Signs/Physical Exam: Temp Pulse Resp BP Pulse Ox 97.9 F 88 18 118/68 96 01/24/23 04:00 01/24/23 04:00 01/24/23 07:28 01/24/23 04:00 01/24/23 07:28 General: Alert, In no apparent distress, Oriented x3 Laboratory Data at Discharge: WBC 7.50 thou/uL (4.3-10.9) 01/24/23 04:39 Hgb 13.4 g/dL (13.6-17.9) L 01/24/23 04:39 Hct 39.7 % (39.6-49.0) 01/24/23 04:39 Plt Count 308 thou/uL (152-406) 01/24/23 04:39 Sodium 141 mEq/L (136-145) 01/24/23 04:39 Potassium 3.4 mEq/L (3.5-5.1) L D 01/24/23 04:39 BUN 27 mg/dL (7-18) H 01/24/23 04:39 Creatinine 0.93 mg/dL (0.70-1.30) 01/24/23 04:39 Glucose 113 mg/dL (74-106) H 01/24/23 04:39 Phosphorus 2.4 mg/dL (2.5-4.9) L 01/24/23 04:39 Magnesium 2.3 mg/dL (1.6-2.4) 01/24/23 04:39 Total Bilirubin 0.3 mg/dL (0.2-1.0) 01/23/23 09:48 AST 21 U/L (15-37) 01/23/23 09:48 ALT 42 U/L (16-61) 01/23/23 09:48 Alkaline Phosphatase 87 U/L (45-117) 01/23/23 09:48 Lipase 23 U/L (13-75) 01/21/23 21:10 Home Medications: Insulin Aspart [Novolog Penfill] 30 unit SQ AC 01/24/21 Nortriptyline HCl [Pamelor] 50 mg PO BEDTIME 01/24/21 Zolpidem Tartrate 10 mg PO BEDTIME 01/24/21 Famotidine 20 mg PO PRN PRN 09/15/21 Insulin Glargine,Hum.rec.anlog [Lantus] 50 unit SQ BID 12/23/21 Codeine/APAP [Tylenol W/Codeine #3 tab] 1 tab PO Q6HP PRN #30 tab 07/11/22 Collagenase [Santyl Ointment*] 1 appl TOP DAILY #1 tube 07/11/22 Promethazine Tab [Phenergan*] 25 mg PO Q6H PRN #30 tab 07/11/22 clonazePAM [Klonopin] 0.5 mg PO TID #60 tab 07/11/22 Physician Discharge Instructions: -DC IV and DC home -Follow-up with PCP in 1 to 2 weeks -Follow-up with GI in 1 to 2 weeks -Please call Dr. Florence at [phone] if any questions regarding hospital stay -Please call nursing station at [phone] if any nursing or medication questions -Return to the emergency room if symptoms worsen Followup: Mo Rascon MD [Primary Care Provider] - Time spent managing pt's care (in minutes): 35
[2023-01-24 10:18] VITALS: BP 152/65; TEMP 97.4
== END 2023-01-24 11:22 | disposition home or self-care (01) | DRG 74 ==
LOC: ER 20:49 → ERHOLD 23:17 → 4TH 01-22 07:29
PROVIDERS: ADMIT Hospitalist; ATTEND Hospitalist
DX: E10.43 Type 1 diabetes mellitus with diabetic autonomic (poly)neuropathy (principal); E87.1 Hypo-osmolality and hyponatremia; N17.9 Acute kidney failure, unspecified; M86.9 Osteomyelitis, unspecified; K31.84 Gastroparesis; E10.69 Type 1 diabetes mellitus with other specified complication; E10.42 Type 1 diabetes mellitus with diabetic polyneuropathy; L89.892 Pressure ulcer of other site, stage 2; I10 Essential (primary) hypertension; E78.5 Hyperlipidemia, unspecified; K42.9 Umbilical hernia without obstruction or gangrene; K76.0 Fatty (change of) liver, not elsewhere classified; M47.896 Other spondylosis, lumbar region; N40.0 Benign prostatic hyperplasia without lower urinary tract symptoms; Z79.4 Long term (current) use of insulin; Z88.5 Allergy status to narcotic agent; Z88.8 Allergy status to other drugs, medicaments and biological substances; Z90.49 Acquired absence of other specified parts of digestive tract; Z79.899 Other long term (current) drug therapy; Z89.421 Acquired absence of other right toe(s)
CPT/HCPCS: 36415; 74177; 80048; 80053; 81001; 82947; 83036; 83690; 83735; 84100; 84484; 85025; 87086; 87088; 93005; 96374; 96375; 99284; 99285; J1170; J1200; J1815; J2270; J2405; J2550; J2765; J7030; J7042; Q0162; Q9967